=== PATIENT | female | born 1945 | race Caucasian/White ===

== ENCOUNTER → 2017-05-24 | Outpatient (CLI) | payer MEDICARE, OTHER ==
[~2017-05-24] MED LIST: BPR100T PO; CALCIUM PO; CEPH-38 OT; DCS100C PO; GLIP5TAB13 PO; MAALOX; MTF500T PO; MTF500TCR PO; MULT-608 PO; NEOM10DR9 LEFT EAR; OXC20TCR PO; OXYC1TAB87 PO; PGLT30T PO; PRANDIN; REPA0.5T PO; SCP1.5TD TD; SNN187T PO; TEMA30CA PO; TRAZ300T3 PO
--- NOTE | 2017-05-24 12:22 | Diagnostic Imaging Report ---
PROCEDURE: CT abdomen and pelvis without contrast. TECHNIQUE: Multiple contiguous axial images were obtained through the abdomen and pelvis without the use of intravenous contrast. INDICATION: Abdominal pain. Patient has had prior colonic surgery. Comparison is made with prior CT abdomen study dating back to 06/27/2006. The lung bases are clear. No discrete liver mass is identified. The gallbladder is surgically absent. The pancreas and spleen are unremarkable apart from splenic granulomas. No adrenal mass is identified. Kidneys are unremarkable. Aorta is heavily calcified but non-aneurysmal. There appears to be postop changes to the abdomen and probable total colectomy. There is an ostomy in the right lower quadrant. There may be a rectal pouch. Bowel loops do not appear to be appreciably dilated. The previous exam demonstrated markedly distended and stool-filled bowel loops in the pelvis. This is no longer appreciated. There does appear to be some mild circumferential wall thickening involving a loop of bowel that extends from the ostomy in the right lower quadrant caudally into the pelvis. This is indeterminate. No pneumatosis is seen. No free fluid or loculated fluid collection is identified. The bladder is decompressed. IMPRESSION: Extensive postsurgical changes to the abdomen. There is a long segment of circumferential wall thickening involving a bowel loop in the right abdomen, nonspecific. This may be owing to nonspecific enteritis. No bowel obstruction is seen. No free fluid or fluid collection is identified. No free air is seen. Dictated by: Dictated on workstation # [id number]
== END ==
LOC: RAD 10:42
PROVIDERS: ATTEND Nurse Practitioner Family
DX: R10.9 Unspecified abdominal pain (principal); Z90.49 Acquired absence of other specified parts of digestive tract
CPT/HCPCS: 74176

== ENCOUNTER → 2017-07-17 | Outpatient (CLI) | payer MEDICARE, OTHER ==
[~2017-07-17] MED LIST changes: +ATOR20TA66 PO; +CYAN100092 IJ; +INSU300I SQ; +METO-370 PO; +VENL150C98 PO
== END | disposition home or self-care (01) ==
LOC: PREOP 05:54
PROVIDERS: ATTEND Specialist
DX: Z01.818 Encounter for other preprocedural examination (principal)

== ENCOUNTER 2017-07-20 09:57 | Day surgery (SDC) | payer MEDICARE, OTHER ==
[~2017-07-20] VITALS: Ht 172.7 cm; Wt 54.4 kg
[~2017-07-20 09:57] MED LIST changes: -ATOR20TA66 PO; -CYAN100092 IJ; -INSU300I SQ; -METO-370 PO; -VENL150C98 PO
[2017-07-20] MEDS: TETRACAINE 0.5% OPHTH SOLN 4 ML BTL (SINGLE DOSE ONLY) OU PRN ×4 (10:14→10:32)
[2017-07-20] MEDS ORDERED: VANCOMYCIN/BSS (COMPOUNDED) 10 MG/ML SYR OP ONE (10:15)
[2017-07-20] MEDS ORDERED: TIMOLOL MALEATE 0.5% 5 ML (TIMOPTIC) BTL OU PRN (10:15)
[2017-07-20] MEDS ORDERED: LIDOCAINE PF 1% 2 ML AMP IR PRN (10:15)
[2017-07-20] MEDS ORDERED: EPINEPHrine INJECTION 1 MG/ML AMP INJ ONE (10:15)
[2017-07-20] MEDS ORDERED: POVIDONE (BETADINE) OPHTH SOLN 5% 30 ML OP ONE (10:15)
[2017-07-20] MEDS ORDERED: INSU300I SQ (10:20)
[2017-07-20 10:22] VITALS: BP 117/71
[2017-07-20] MEDS ORDERED: CYAN100092 IJ (10:23)
[2017-07-20] MEDS ORDERED: METO-370 PO (10:23)
[2017-07-20] MEDS ORDERED: VENL150C98 PO (10:23)
[2017-07-20] MEDS: CYCLOPENTOLATE 1% (CYCLOGYL) 2 ML DROPS OP SCH ×3 (10:24→10:32)
[2017-07-20] MEDS: PHENYLEPHRINE 10% OPHTH (NEO-SYN) 5 ML BTL OU SCH ×3 (10:24→10:32)
[2017-07-20] MEDS ORDERED: ATOR20TA66 PO (10:27)
--- NOTE | 2017-07-20 10:54 | Ophthalmologist Pre-Op Note ---
Pre-Operative Progress Note H&P Reviewed The H&P was reviewed, patient examined and no changes noted. Date H&P Reviewed: Jul 20, 2017 Time H&P Reviewed: 10:53 Pre-Op Dx Secondary Cataract, Right Eye CHRISTO SIERRA MD Jul 20, 2017 10:53
[2017-07-20] MEDS ORDERED: MIDAZOLAM 2 MG/2 ML (VERSED) VIAL ONE (10:57)
--- NOTE | 2017-07-20 11:24 | Ophthalmology Operative Report ---
Cataract removal/placement IOL PREOPERATIVE DIAGNOSIS: Cataract Right Eye POSTOPERATIVE DIAGNOSIS: Cataract Right Eye PROCEDURE: Cataract removal and placement of posterior chamber implant, right eye SURGEON: Alfie Sierra ANESTHESIA: Topical with sedation COMPLICATIONS: None ESTIMATED BLOOD LOSS: Minimal DESCRIPTION OF PROCEDURE: After proper informed consent was obtained, the patient, a 72 female, was taken to the Operating Room and the right eye was anesthetized with tetracaine. The right eye was then prepped and draped in the usual manner. A wire lid speculum was placed. A paracentesis was made at the left hand position. Preservative free lidocaine was injected into the anterior chamber followed by viscoelastic. A clear corneal incision was made in the temporal position. A capsulorrhexis was preformed and the central nuclear and cortical material were removed. The posterior capsule was polished and Diego 21.5 [id number] IOL was placed into the capsular bag. The residual viscoelastic was aspirated and balanced saline solution was injected into the anterior chamber. 0.1ml of Vancomycin (1mg/0.1ml ) was injected into the anterior chamber. The wound was checked and found to be water tight. The patient tolerated the procedure well without complications. ALFIE SIERRA MD Jul 20, 2017 11:24
[2017-07-20 11:37] VITALS: BP 131/65
--- NOTE | 2017-07-20 12:21 | Anesthesia-General Post-Op ---
MAC Patient Condition Mental Status/LOC: Same as Preop Cardiovascular: Satisfactory Nausea/Vomiting: Absent Respiratory: Satisfactory Pain: Controlled Complications: Absent Post Op Complications Complications None Follow Up Care/Instructions Patient Instructions None needed. Anesthesiology Discharge Order Discharge Order Patient is doing well, no complaints, stable vital signs, no apparent adverse anesthesia problems. No complications reported per nursing. ANGIE JAUREGUI CRNA Jul 20, 2017 12:21
== END 2017-07-20 11:37 | disposition home or self-care (01) ==
LOC: SDC 09:57
PROVIDERS: ATTEND Specialist
DX: E11.36 Type 2 diabetes mellitus with diabetic cataract (principal); I10 Essential (primary) hypertension; I48.91 Unspecified atrial fibrillation; Z79.4 Long term (current) use of insulin; Z79.899 Other long term (current) drug therapy
CPT/HCPCS: 82962

== ENCOUNTER → 2017-07-25 | Outpatient (CLI) | payer MEDICARE, OTHER ==
[~2017-07-25] MED LIST changes: +ATOR20TA66 PO; +CYAN100092 IJ; +INSU300I SQ; +METO-370 PO; +VENL150C98 PO
== END ==
LOC: PREOP 06:21
PROVIDERS: ATTEND Specialist
DX: Z01.818 Encounter for other preprocedural examination (principal)

== ENCOUNTER 2017-08-23 14:04 | Outpatient (RCR) | payer MEDICARE, OTHER ==
[~2017-08-23] VITALS: Ht 167.6 cm; Wt 60.8 kg
[2017-08-23] MEDS ORDERED: NS IV 1000 ML 1,000 ML ONE (14:20)
[2017-08-23] MEDS ORDERED: metroNIDAZOLE 500MG/100ML IVPB 100 ML ONE (14:20)
[2017-08-23 14:30] VITALS: BP 124/69
[2017-08-23] MEDS ORDERED: metroNIDAZOLE 500 MG/100 ML IVPB (PRE-MIX) IV ONE (14:45)
[2017-08-23] MEDS ORDERED: NS IV 1000 ML 1,000 ML IV SCH ×2 (14:45→16:00)
[2017-08-23 18:43] VITALS: BP 124/69
== END 2017-08-24 06:22 | disposition home or self-care (01) ==
LOC: SDC 14:04
PROVIDERS: ATTEND Family Medicine
DX: E86.0 Dehydration (principal); K91.850 Pouchitis
CPT/HCPCS: 96361; 96365

== ENCOUNTER → 2018-04-30 | Outpatient (CLI) | payer MEDICARE, OTHER ==
--- NOTE | 2018-04-30 16:57 | Diagnostic Imaging Report ---
INDICATION: Fall with trauma to the head. Headache. TECHNIQUE: Routine non contrast-enhanced axial images were obtained from the skull base to the vertex. COMPARISON: None. FINDINGS: The ventricles and cortical sulci are diffusely prominent, compatible with age-related volume loss. There are confluent areas of abnormal, low attenuation in the periventricular white matter. This is consistent with small vessel ischemic changes; age-indeterminate. There is no prior study available for comparison. There is no midline shift or mass-effect. No acute intra-axial hemorrhage is seen. There are no abnormal areas of increased or decreased density to suggest acute hemorrhage or edema. No extra-axial masses or collections are present. The bony calvarium is intact. The visualized paranasal sinuses are unremarkable. The mastoid air cells are clear. IMPRESSION: 1. No acute intracranial abnormality. No CT evidence of mass, acute infarct or intracranial hemorrhage. 2. Small vessel ischemic changes in the periventricular and subcortical white matter; likely chronic. Dictated by: Dictated on workstation # [id number]
[2018-04-30 17:19] LABS: BASOPHILS % (AUTO) 0 % (0-10); EOSINOPHILS # (AUTO) 0.1 10^3/uL (0.0-0.3); EOSINOPHILS % (AUTO) 2 % (0-10); HEMATOCRIT 36 % (35-52); HEMOGLOBIN 12.5 G/DL (11.5-16.0); LYMPHOCYTES # (AUTO) 1.3 X 10^3 (1.0-4.0); LYMPHOCYTES % (AUTO) 23 % (12-44); MEAN CORPUSCULAR HEMOGLOBIN 32 PG (25-34); MEAN CORPUSCULAR HGB CONC 35 G/DL (32-36); MEAN CORPUSCULAR VOLUME 94 FL (80-99); MEAN PLATELET VOLUME 13.6 FL (7.4-10.4); MONOCYTES # (AUTO) 0.6 X 10^3 (0.0-1.0); MONOCYTES % (AUTO) 10 % (0-12); NEUTROPHILS # (AUTO) 3.7 X 10^3 (1.8-7.8); NEUTROPHILS % (AUTO) 65 % (42-75); PLATELET COUNT 177 10^3/uL (130-400); WHITE BLOOD COUNT 5.6 10^3/uL (4.3-11.0)
[2018-04-30 17:36] LABS: ALBUMIN 4.3 GM/DL (3.2-4.5); BILIRUBIN,TOTAL 0.3 MG/DL (0.1-1.0); CALCIUM 10.1 MG/DL (8.5-10.1); CREATININE SERUM 2.7 MG/DL (0.60-1.30); POTASSIUM 5.6 MMOL/L (3.6-5.0); TOTAL PROTEIN 7.4 GM/DL (6.4-8.2)
[2018-04-30 17:41] LABS: BILIRUBIN,URINE NEGATIVE (NEGATIVE); CLARITY,URINE SLIGHTLY CLOUDY; COLOR,URINE YELLOW; GLUCOSE, URINE (UA) 4+ (NEGATIVE); KETONES,URINE NEGATIVE (NEGATIVE); LEUKOCYTE ESTERASE ,URINE 2+ (NEGATIVE); NITRITE,URINE NEGATIVE (NEGATIVE); PH,URINE 5 (5-9); PROTEIN,URINE 1+ (NEGATIVE); UROBILINOGEN,URINE NORMAL (NORMAL)
[2018-04-30 17:50] LABS: BACTERIA,URINE TRACE /HPF
== END ==
LOC: RAD 16:36
PROVIDERS: ATTEND Nurse Practitioner Family
DX: S09.90XA Unspecified injury of head, initial encounter (principal); I67.82 Cerebral ischemia; E11.65 Type 2 diabetes mellitus with hyperglycemia; Z91.81 History of falling
CPT/HCPCS: 36415; 70450; 80053; 81000; 83036; 85025; 87088

== ENCOUNTER → 2019-01-01 | Outpatient (CLI) | payer MEDICARE, BC, OTHER ==
[~2019-01-01] VITALS: Ht 171 cm; Wt 58.1 kg
[~2019-01-01] MED LIST changes: +ATEN50TA PO; +IBUP1TAB9 PO; +INSU100I34 SC; +LIRA0.6P3 SC; +LISI-556 PO; +MULT-1067 PO; +NS IV 1000 ML 1,000 ML IV ONE; +TR1C15 TOP
--- NOTE | 2019-01-01 08:15 | NUR ---
LUNGS CTA, HEART RATE SLIGHTLY IRREG. VSS. 0930: LUNGS CTA, HEART RATE SLIGHTLY IRREG. VSS.
[2019-01-01 08:25] VITALS: BP 126/60
[2019-01-01 08:48] LABS: CALCIUM 9.7 MG/DL (8.5-10.1); CREATININE SERUM 3.43 MG/DL (0.60-1.30); POTASSIUM 4.3 MMOL/L (3.6-5.0)
--- NOTE | 2019-01-01 09:35 | NUR ---
36.4, 92, 16, 100%, 152/66. LUNGS CTA. DENIES ANY SHORTNESS OF BREATH.
== END ==
LOC: SDC 08:02
PROVIDERS: ATTEND Family Medicine
DX: E86.0 Dehydration (principal); N17.9 Acute kidney failure, unspecified; N18.3 Chronic kidney disease, stage 3 (moderate)
CPT/HCPCS: 36415; 80048; 96360; 96361

== ENCOUNTER 2019-01-02 16:20 | Inpatient (IN) | payer MEDICARE, BC, OTHER ==
[~2019-01-02] VITALS: Ht 172 cm; Wt 59.2 kg
[~2019-01-02 16:20] MED LIST changes: -ATEN50TA PO; -IBUP1TAB9 PO; -INSU100I34 SC; -LIRA0.6P3 SC; -LISI-556 PO; -MULT-1067 PO; -NS IV 1000 ML 1,000 ML IV ONE; -TR1C15 TOP
[2019-01-02 17:03] LABS: BILIRUBIN,URINE NEGATIVE (NEGATIVE); CLARITY,URINE CLEAR; COLOR,URINE YELLOW; GLUCOSE, URINE (UA) NEGATIVE (NEGATIVE); KETONES,URINE NEGATIVE (NEGATIVE); LEUKOCYTE ESTERASE ,URINE NEGATIVE (NEGATIVE); NITRITE,URINE NEGATIVE (NEGATIVE); PROTEIN,URINE 1+ (NEGATIVE)
--- NOTE | 2019-01-02 17:03 | ED General ---
General Chief Complaint: Lower Extremity Stated Complaint: BLOOD IN URINE/L LEG KNOT Nursing Triage Note: is a diabetic and was sent here by Dr Mendez who would like pt admitted to facility for kidney failure and knot on L leg Nursing Sepsis Screen: No Definite Risk Source of Information: Patient, Spouse Exam Limitations: No Limitations History of Present Illness Date Seen by Provider: Jan 02, 2019 Time Seen by Provider: 17:03 Initial Comments 73-year-old female patient presents with reports of needing to be admitted for kidney failure and a "knot" on her left leg. Patient was seen yesterday by Dr. Mendez and given outpatient IV fluids for renal failure. She reports increased redness, swelling, and pain to the LLE. Patient states she is diabetic and blood sugars have been running "higher than normal" the last few days (upper 100's to 500's). Timing/Duration: 1-2 Days Modifying Factors: worse with Medication (no improvement with fluids.), worse with Other (worse with palpation) Allergies and Home Medications Allergies Coded Allergies: Sulfa (Sulfonamide Antibiotics) (Verified Allergy, Unknown, 06/11/06) Home Medications Atenolol 50 Mg Tablet, 50 MG PO DAILY, (Reported) Doxycycline Hyclate 100 Mg Capsule, 100 MG PO BID Prescribed by: DIEGO MENDEZ on 01/06/19 1234 Hydrocodone Bit/Acetaminophen 1 Tab Tab, 1 TAB PO Q12H PRN for PAIN-MODERATE (5- 7) Prescribed by: DIEGO MENDEZ on 01/06/19 1234 Insulin Glargine,Hum.rec.anlog 100 Unit/1 Ml Insuln.pen, 20 UNITS SC HS, (Reported) Liraglutide 0.6 Mg/0.1 Ml Pen.injctr, 0.6 MG SC DAILY LAST FILLED 9ML 07-09-18 Prescribed by: DIEGO MENDEZ on 01/06/19 1234 Lisinopril 5 Mg Tablet, 5 MG PO DAILY, (Reported) Multivitamin/Iron/Folic Acid 1 Each Tablet, 1 TAB PO DAILY, (Reported) Patient Home Medication List Home Medication List Reviewed: Yes Review of Systems Review of Systems Constitutional: chills; No fever; malaise EENTM: no symptoms reported Respiratory: No cough, No phlegm, No short of breath, No wheezing Cardiovascular: No chest pain, No palpitations, No syncope Gastrointestinal: No abdominal pain, No constipation, No diarrhea; loss of appetite; No nausea, No vomiting Genitourinary: No decreased output, No dysuria, No frequency, No hematuria Musculoskeletal: No back pain; other (left lower extremity pain) Skin: change in color (redness to the left distal lower extremity), lumps (left anterior distal leg) Psychiatric/Neurological: Denies Numbness, Denies Paresthesia, Denies Tingling, Denies Weakness All Other Systems Reviewed Negative Unless Noted: Yes (Negative excepted noted.) Past Zwkmpqn-Jhbflt-Clkvac Hx Past Med/Social Hx: Reviewed Nursing Past Med/Soc Hx Patient Social History Alcohol Use: Denies Use Recreational Drug Use: No 2nd Hand Smoke Exposure: No Recent Foreign Travel: No Contact w/Someone Who Travel: No Recent Infectious Disease Expo: No Recent Hopitalizations: Yes Past Medical History Surgeries: Yes (COLECTOMY,APPY,POUCH FROM SM.INTESTINE,ADHESIONS,D&C,STOMA CLOSURE) Respiratory: No Cardiac: No Neurological: No Reproductive Disorders: No Gastrointestinal: Yes (06/11/06 ON 4TH FOR DEHYDRATION & ELEVATED LIVER ENZYMES) Musculoskeletal: No Blood Disorders: No Family Medical History Reviewed Nursing Family Hx No Pertinent Family Hx Physical Exam Vital Signs Vital Signs - First Documented 01/02/19 16:42 Temp 36.9 Pulse 65 Resp 18 B/P (MAP) 138/77 (97) Capillary Refill : Less Than 3 Seconds Height, Weight, BMI Height: 5'6.00" Weight: 134lbs. 0.5oz. [id number]; 19.00 BMI Method:Stated General Appearance: No Apparent Distress, WD/WN HEENT: PERRL/EOMI, Pharynx Normal Neck: Normal Inspection, Supple Respiratory: Lungs Clear, Normal Breath Sounds, No Accessory Muscle Use, No Respiratory Distress Cardiovascular: Regular Rate, Rhythm, No Edema, No Murmur, Normal Peripheral Pulses Gastrointestinal: Normal Bowel Sounds, Non Tender, Soft; No Distended Back: Normal Inspection Extremity: Normal Capillary Refill, Normal Range of Motion, Other (erythema, warmth, and tenderness with 2 fluctuant areas of the left anterior distal leg. Purulent drainage noted from the lateral wound. Culture obtained at the time of exam.) Neurologic/Psychiatric: Alert, Oriented x3, No Motor/Sensory Deficits, Normal Mood/Affect Skin: Normal Color, Warm/Dry, Other (erythema, warmth, and tenderness with 2 fluctuant areas of the left anterior distal leg. Purulent drainage noted from the lateral wound. Culture obtained at the time of exam.) Procedures/Interventions I&D #1: Site: left distal anterolateral leg Blade Size: 11 I & D Procedure: betadine prep, sterile drapes applied, sterile dressing applied, Wound Packing Packing/Drain: Idoform 1/4 Progress fat necrosis in the bed of the wound noted. Blood loss minimal. Patient tolerated the procedure well. I&D #2: Site: left anterior distal leg Blade Size: 11 I & D Procedure: betadine prep, sterile drapes applied, sterile dressing applied, Wound Packing Packing/Drain: Idoform 1/4 Progress Fat necrosis noted in the bed of the wound. Blood loss minimal. Patient tolerated the procedure well. Progress/Results/Core Measures Suspected Sepsis Recent Fever Within 48 Hours: Yes Infection Criteria Present: Suspected New Infection New/Unexplained Altered Menta: No Sepsis Screen: No Definite Risk SIRS Temperature: Pulse: 65 Respiratory Rate: 18 Blood Pressure 138 /77 Mean: 97 Results/Orders Lab Results Laboratory Tests Test 01/02/19 16:50 Range/Units My Orders Orders - LATA JEONG Ed Iv/Invasive Line Start (01/02/19 16:58) Cbc With Automated Diff (01/02/19 16:58) Comprehensive Metabolic Panel (01/02/19 16:58) Ua Culture If Indicated (01/02/19 16:58) Vital Signs/I&O 01/02/19 16:42 Temp 36.9 Pulse 65 Resp 18 B/P (MAP) 138/77 (97) Capillary Refill : Less Than 3 Seconds Blood Pressure Mean: 97 POS Departure Communication (Admissions) Time/Spoke to Admitting Phy: 19:55 Dr. Diego Mendez graciously accepts patient for IV antibiotics, IV fluids, and pain control. Patient seen and evaluated. Initial labs obtained. Patient was given 50 g of fentanyl with improvement in pain. Incision and drainage of the 2 left distal extremity abscesses performed. Patient was given doxycycline 100 mg IV 1 dose. Laboratory findings and plan for admission discussed with the patient and spouse. Both verbalize understanding and agree with the treatment plan. Plan for admission discussed with Dr. Salazar, he agrees with the plan of care. Impression Primary Impression: Cellulitis and abscess of left lower extremity Additional Impressions: Spider bite Qualified Codes: T63.301A - Toxic effect of unspecified spider venom, accidental (unintentional), initial encounter Acute on chronic renal failure Qualified Codes: N17.9 - Acute kidney failure, unspecified; N18.3 - Chronic kidney disease, stage 3 (moderate) Diabetes mellitus type 2 in nonobese Disposition: ADMITTED INPATIENT Condition: Stable Admissions Decision to Admit Reason: Admit from ER (General) Decision to Admit/Date: Jan 02, 2019 Time/Decision to Admit Time: 19:55 Departure-Patient Inst. Referrals: DIEGO MENDEZ MD (PCP/Family) Primary Care Physician Scripts Doxycycline Hyclate (Doxycycline Hyclate) 100 Mg Capsule 100 MG PO BID for 10 Days, #20 CAP Prov: DIEGO MENDEZ MD 01/06/19 Hydrocodone Bit/Acetaminophen (Hydrocodone/Acetaminophen 5/325mg Tablet) 1 Tab Tab 1 TAB PO Q12H PRN for PAIN-MODERATE (5-7), #12 TAB Prov: DIEGO MENDEZ MD 01/06/19 Liraglutide (Victoza 3-Raj) 0.6 Mg/0.1 Ml Pen.injctr 0.6 MG SC DAILY, #3 EA LAST FILLED 9ML 07-09-18 Prov: DIEGO MENDEZ MD 01/06/19 Images Extremities-Lower 1 - Cellulitis, Tenderness LATA JEONG Jan 02, 2019 17:03 POS
[2019-01-02 17:21] LABS: BACTERIA,URINE NEGATIVE /HPF; GRANULAR CASTS,URINE RARE /LPF; SQUAMOUS EPITHELIAL CELL,UR 0-2 /HPF
[2019-01-02] MEDS ORDERED: NS IV 1000 ML 1,000 ML IV ONE (17:27)
[2019-01-02] MEDS ORDERED: fentaNYL INJECTION 100 MCG/2 ML AMP IVP STA ×2 (17:27→18:56)
[2019-01-02] MEDS ORDERED: LIDOCAINE/EPI 1%-1:100,000 (XYLOCAINE) 20ML INJ ONE (17:30)
[2019-01-02] MEDS ORDERED: LIDOCAINE/EPI 2% 1:100,00 (XYLOCAINE) 20 ML VIAL INJ ONE (17:45)
[2019-01-02 18:06] LABS: BASOPHILS % (AUTO) 0 % (0-10); EOSINOPHILS # (AUTO) 0.2 10^3/uL (0.0-0.3); EOSINOPHILS % (AUTO) 1 % (0-10); HEMATOCRIT 35 % (35-52); HEMOGLOBIN 11.3 G/DL (11.5-16.0); LYMPHOCYTES # (AUTO) 1.8 X 10^3 (1.0-4.0); LYMPHOCYTES % (AUTO) 17 % (12-44); MEAN CORPUSCULAR HEMOGLOBIN 31 PG (25-34); MEAN CORPUSCULAR HGB CONC 32 G/DL (32-36); MEAN CORPUSCULAR VOLUME 96 FL (80-99); MONOCYTES # (AUTO) 0.8 X 10^3 (0.0-1.0); MONOCYTES % (AUTO) 8 % (0-12); NEUTROPHILS # (AUTO) 7.8 X 10^3 (1.8-7.8); NEUTROPHILS % (AUTO) 74 % (42-75); PLATELET COUNT 269 10^3/uL (130-400); RED CELL DISTRIBUTION WIDTH 14.4 % (10.0-14.5); WHITE BLOOD COUNT 10.6 10^3/uL (4.3-11.0)
[2019-01-02 18:51] LABS: ALBUMIN 3.6 GM/DL (3.2-4.5); BILIRUBIN,TOTAL 0.2 MG/DL (0.1-1.0); CALCIUM 8.7 MG/DL (8.5-10.1); CREATININE SERUM 2.41 MG/DL (0.60-1.30); POTASSIUM 4.1 MMOL/L (3.6-5.0); TOTAL PROTEIN 6.3 GM/DL (6.4-8.2)
[2019-01-02] MEDS ORDERED: DOXYCYCLINE INJECTION 100 MG in NS (IVPB) 100 ML IV ONE (19:15)
[2019-01-02] MEDS ORDERED: HYDROcodone/APAP 5 MG/325 MG (LORTAB) TAB ONE (20:56)
--- NOTE | 2019-01-02 21:10 | NUR ---
DEBORAH CRUZ admitted to room 409-1, with an admitting diagnosis of EXTENSIVE CELLULITIS/ABSESS LLE, SPIDER BITE, ACCUTE ONSET CHRONIC RENAL FAILURE, DM, on 01/02/19 from ED via STRETCHER, accompanied by SPOUSE, ED STAFF.DEBORAH CURZ introduced to surroundings, call light, bed controls, phone, TV, temperature control, lights, meal times, smoking policy, visitor policy, side rail policy, bathrooms and showers. Patient Rights given to patient in the handbook.DEBORAH CRUZ verbalizes understanding that [facility] is not responsible for the loss or damage to any personal effects or valuables that are kept in the patients posession during their hospitalization.
[2019-01-02 21:12] VITALS: BP 144/67
[2019-01-02] MEDS ORDERED: PIPERACILLIN/TAZO 4.5 GM/NS 100 ML IV ONE ×2 (21:45)
[2019-01-02] MEDS: HYDROcodone/APAP 5 MG/325 MG (LORTAB) TAB PO PRN (22:10)
[2019-01-02] MEDS ORDERED: TAZOBACTAM IV SCH (22:15)
[2019-01-02] MEDS ORDERED: NS IV SCH (22:15)
[2019-01-02] MEDS ORDERED: PIPERACILLIN IV SCH (22:15)
[2019-01-02] MEDS ORDERED: PIPERACILLIN/TAZO 4.5 GM VIAL (ZOSYN) IV ONE (22:16)
[2019-01-02] MEDS ORDERED: NS (IVPB) 100 ML ONE (22:17)
[2019-01-02] MEDS: TAZOBACTAM IV SCH (22:33)
[2019-01-02] MEDS: LACTATED RINGERS 1,000 ML IV SCH (22:33)
[2019-01-02] MEDS: NS IV SCH (22:33)
[2019-01-02] MEDS: PIPERACILLIN IV SCH (22:33)
[2019-01-03] MEDS: fentaNYL INJECTION 100 MCG/2 ML AMP IV PRN ×4 (02:22→21:36)
[2019-01-03 03:35] VITALS: BP 127/72
[2019-01-03] MEDS ORDERED: PIPERACILLIN/TAZO 4.5 GM/NS 100 ML IV SCH ×2 (03:45)
[2019-01-03] MEDS: HYDROcodone/APAP 5 MG/325 MG (LORTAB) TAB PO PRN ×5 (03:55→23:32)
[2019-01-03 05:28] LABS: BASOPHILS % (AUTO) 0 % (0-10); EOSINOPHILS # (AUTO) 0.1 10^3/uL (0.0-0.3); EOSINOPHILS % (AUTO) 2 % (0-10); HEMATOCRIT 30 % (35-52); HEMOGLOBIN 9.7 G/DL (11.5-16.0); LYMPHOCYTES # (AUTO) 1.4 X 10^3 (1.0-4.0); LYMPHOCYTES % (AUTO) 26 % (12-44); MEAN CORPUSCULAR HEMOGLOBIN 31 PG (25-34); MEAN CORPUSCULAR HGB CONC 33 G/DL (32-36); MEAN CORPUSCULAR VOLUME 95 FL (80-99); MONOCYTES # (AUTO) 0.5 X 10^3 (0.0-1.0); MONOCYTES % (AUTO) 9 % (0-12); NEUTROPHILS # (AUTO) 3.5 X 10^3 (1.8-7.8); NEUTROPHILS % (AUTO) 63 % (42-75); PLATELET COUNT 182 10^3/uL (130-400); RED CELL DISTRIBUTION WIDTH 13.2 % (10.0-14.5); WHITE BLOOD COUNT 5.5 10^3/uL (4.3-11.0)
[2019-01-03 05:57] LABS: BILIRUBIN,TOTAL 0.2 MG/DL (0.1-1.0); CREATININE SERUM 2.02 MG/DL (0.60-1.30); POTASSIUM 3.6 MMOL/L (3.6-5.0); TOTAL PROTEIN 5.3 GM/DL (6.4-8.2)
--- NOTE | 2019-01-03 06:27 | History & Physical ---
History of Present Illness History of Present Illness Reason for visit/HPI 73 yo female admitted yesterday evening for a concerning left leg wound that patient reports is becoming increasingly painful and starting to ooze. The pain is severe enough she does not want to walk on it. (of note she has been walking more the last few days with errands and doctor appointments). Furthermore patient's Cr went from 1.9 a couple months ago to 2.4 and then 3.2 in the past few days. She did receive 2L NS in outpatient setting on 01/01/19 in effort to keep her out of the hospital. I ordered a repeat BMP to check her kidney function and she reported she was too weak and in pain to go to the lab. Thus, she was instructed to go to the ER. Her blood sugars have also been out of control ranging from 100s to 500s per patient and her . I have concern that she does not adhere to her insulin regimen. While in the ER, both left leg nodules were lanced with pus being expressed as well as fatty tissue layer damaged/necrotic. Creatinine has improved with IVF. She has been admitted with IV antibiotic coverage and a wound culture is pending. No known fevers, WBC are normal. Will consult wound or surgery. Date of Admission Jan 02, 2019 at 20:05 Date Seen by a Provider: Jan 03, 2019 Time Seen by a Provider: 09:30 I consulted on this patient on 01/03/19 06:19 Attending Physician Diego Mendez MD Admitting Physician Diego Mendez MD Consult wound care- Dr. Robert Allergies and Home Medications Allergies Coded Allergies: Sulfa (Sulfonamide Antibiotics) (Verified Allergy, Unknown, 06/11/06) Home Medications Atenolol 50 Mg Tablet, 50 MG PO DAILY, (Reported) Ibuprofen/Diphenhydramine Cit 1 Each Tablet, 2 TAB PO HS, (Reported) Insulin Glargine,Hum.rec.anlog 100 Unit/1 Ml Insuln.pen, 20 UNITS SC HS, (Reported) Liraglutide 0.6 Mg/0.1 Ml Pen.injctr, 0.6 MG SC TIDAC, (Reported) LAST FILLED 9ML 07-09-18 Lisinopril 5 Mg Tablet, 5 MG PO DAILY, (Reported) Multivitamin/Iron/Folic Acid 1 Each Tablet, 1 TAB PO DAILY, (Reported) Triamcinolone Acet 15 Gm Cr, TOP BID, (Reported) APPLY TO LEFT LEG - 10 DAY SUPPLY FILLED 12-26-18 Patient Home Medication List Home Medication List Reviewed: Yes Past Xvcguif-Mfaixr-Eezssd Hx Patient Social History Alcohol Use: Denies Use Recreational Drug Use: No 2nd Hand Smoke Exposure: No Physical Abuse Screen: No Sexual Abuse: No Recent Foreign Travel: No Contact w/other who traveled: No Recent Hopitalizations: Yes Recent Infectious Disease Expo: No Seasonal Allergies Seasonal Allergies: No Surgeries Yes (COLECTOMY,APPY,POUCH FROM SM.INTESTINE,ADHESIONS,D&C,STOMA CLOSURE) Respiratory No Cardiovascular No Neurological No Reproductive System Hx Reproductive Disorders: No Gastrointestinal Yes (06/11/06 ON 4TH FOR DEHYDRATION & ELEVATED LIVER ENZYMES) Musculoskeletal No Blood Transfusions History of Blood Disorders: No Review of Systems Review of Systems General: No Chills, No Night Sweats HEENT: No Head Aches, No Visual Changes Pulmonary: No Dyspnea, No Cough Cardiovascular: No: Chest Pain, Palpitations, Orthopnea Gastrointestinal: No: Nausea, Vomiting, Abdominal Pain Genitourinary: No Dysuria Musculoskeletal: leg pain; No: neck pain Neurological: Weakness Physical Exam Vital Signs Vital Signs - First Documented 01/02/19 01/02/19 16:42 21:05 Temp 36.9 Pulse 65 Resp 18 B/P (MAP) 138/77 (97) Pulse Ox 98 O2 Delivery Room Air Capillary Refill : Less Than 3 Seconds Height, Weight, BMI Height: 5'6.00" Weight: 134lbs. 0.5oz. 60.182924dv; 19.60 BMI Method:Stated General Appearance: Mild Distress (pain) HEENT: PERRL/EOMI Neck: Non Tender, Supple Respiratory: Chest Non Tender, Lungs Clear, Normal Breath Sounds Cardiovascular: Regular Rate, Rhythm, No Edema Gastrointestinal: Non Tender, Soft Rectal: Deferred Back: No CVA Tenderness Extremity: Other (abscess x2 left lower leg- lateral calf) Neurologic/Psychiatric: Alert, Oriented x3 (flat affect) Assessment/Plan Assessment/Plan Admission Dx left leg abscess acute on chronic kidney failure uncontrolled diabetes mellitus II Admission Status: Observation Reason for Inpatient Admission: monitoring as observation for now as she could decompensate quickly. Assessment and Plan 01/02/19- admitted observation for iv antibiotics and wound culture results- I/D should help with wound healing. Issue will be she needs good blood sugar control to support wound healing. IVF to continue to get her back to baseline cr. Kidney function is improving. Hold/stop victoza for now until she has follow up with her endocrinology. DVT ppx heparin q8hrs Dispo: monitoring for acute changes. await culture results- june d/c to home on po antibiotics if culture is back with sensitivities- 01/04/19 rechecking BMP in AM to make sure cr continues to trend down. Problems: (1) Abscess of left lower extremity excluding foot (2) Diabetes mellitus type II, uncontrolled Assessment & Plan: Hga1c 12.3 12/31/18 (3) Acute on chronic renal failure Qualifiers: (4) HTN (hypertension) (5) History of ulcerative colitis Clinical Quality Measures DVT/VTE Risk/Contraindication: Risk Factor Score Per Nursin RFS Level Per Nursing on Admit: 2=Moderate DIEGO MENDEZ MD Jan 03, 2019 06:27 POS
[2019-01-03] MEDS ORDERED: NS (IVPB) 100 ML ONE (06:54)
[2019-01-03] MEDS ORDERED: PIPERACILLIN/TAZO 4.5 GM VIAL (ZOSYN) IV ONE (06:54)
[2019-01-03] MEDS: PIPERACILLIN IV SCH (07:12)
[2019-01-03] MEDS: TAZOBACTAM IV SCH (07:12)
[2019-01-03] MEDS: NS IV SCH (07:12)
--- NOTE | 2019-01-03 07:55 | NUR ---
CORRECT ZOSYN ORDER TO 4.5G IV (INFUSED OVER 4 HOURS) Q12 HOURS, DUE TO SCR 2.02 AND ESTIMATED CRCL OF 20-23. WILL MONITOR SCR LEVEL AND ADJUST DOSING IF IMPROVES. Addendum: 01/03/19 at 0940 by MANI SAPP [facility] Corrected Zosyn order
[2019-01-03 08:00] VITALS: BP 155/71
[2019-01-03] MEDS: LACTATED RINGERS 1,000 ML IV SCH ×2 (08:51→16:40)
[2019-01-03] MEDS: DOXYCYCLINE INJECTION 100 MG in NS (IVPB) 100 ML IV SCH ×2 (10:12→20:34)
[2019-01-03] MEDS ORDERED: INSU100I34 SC (10:48)
[2019-01-03] MEDS ORDERED: ATEN50TA PO (10:48)
[2019-01-03] MEDS ORDERED: IBUP1TAB9 PO (10:48)
[2019-01-03] MEDS ORDERED: LIRA0.6P3 SC (10:48)
[2019-01-03] MEDS ORDERED: LISI-556 PO (10:48)
[2019-01-03] MEDS ORDERED: MULT-1067 PO (10:48)
[2019-01-03] MEDS ORDERED: TR1C15 TOP (11:23)
[2019-01-03] MEDS: inSUlin ASPART (NovoLOG) 1 UNIT/0.01 ML (CHARGE PER UNIT) SC SCH ×3 (11:37→20:26)
[2019-01-03 12:00] VITALS: BP 149/66
[2019-01-03] MEDS: PIPERACILLIN/TAZO 4.5 GM/NS 100 ML IV SCH ×4 (12:06→22:34)
--- NOTE | 2019-01-03 13:02 | NUR ---
SPOKE WITH THE PATIENT ABOUT HER MEDICATIONS. SHE LISTED WHAT SHE IS TAKING. SHE STATES SHE TAKES IBU 200MG 2 TABS AT HS AND A CENTRUM TABLET DAILY OTC. SHE RECENTLY FILLED TRIAMCINOLONE THAT I ADDED TO THE MED REC BUT SHE HAS FINISHED THE DEXAMETHASONE THAT WAS RECENTLY FILLED. SHE FILLED BASAGLAR RECENTLY WRITTEN 46 UNITS DAILY HOWEVER SHE REPORTS SHE USES 20 UNITS AT HS. [facility] LAST FILLED VICTOZA 9ML 07-09-18 WITH DIRECTIONS TO TAKE 0.6MG X 3 DAYS THEN 1.2MG DAILY THEREAFTER. WHEN THE PATIENT REPORTED THIS MED TO ME SHE STATES SHE USES 0.6MG WITH EACH MEAL TID. I EXPLAINED NORMALLY IT IS GIVEN ONCE DAILY BUT TO DISCUSS WITH HER DR. I CALLED AND SPOKE WITH [facility] OFFICE IN [place] WHO REPORT THEY LAST AUTHORIZED REFILLS ON THE VICTOZA IN JUNE FOR 1.2MG DAILY. THEY HAVE NOT GIVEN SAMPLES OR SENT IT TO ANOTHER PHARMACY THAT THEY HAVE RECORD OF. I NOTED THE PAST DUE FILL DATE ON THE MED REC. SHE ALSO STATES SHE TAKES LISINOPRIL 5MG DAILY AND ATENOLOL 50MG DAILY. [facility] NEITHER ONE HAS EVER DISPENSED THIS MEDICATION THAT THEY HAVE ON FILE. WHEN I ASKED HER ABOUT IT SHE STATES SHE IS CERTAIN THAT IS THE DOSE AND HER SISTER GETS THEM AT A PHARMACY IN [place] FOR HER SOMETIMES. SHE IS UNABLE TO TELL ME THE NAME OF THE PHARMACY AND STATES HER SISTER IS OUT OF TOWN ON A [place] SO SHE IS NOT AVAILABLE TO REACH BY CELL PHONE. I CALLED THE PATIENTS INSURANCE COMPANY, [employer], AND THEY STATE THE ONLY CLAIMS SHE HAS HAD THIS YEAR WERE AT [facility] AND [facility]. THEY DO NOT SEE LISINOPRIL OR ATENOLOL ON HER PROFILE. I PUT THEM ON THE MED REC THE PATIENT REPORTED BUT HAVE NOT REVIEWED THEM. I LEFT A MESSAGE WITH DR. MENDEZ'S OFFICE FOR CLARIFICATION AND WILL UPDATE WHEN THEY RETURN MY CALL.
--- NOTE | 2019-01-03 13:20 | NUR ---
"RD ASSESSMENT PMHx: DM; wound (left calf) PT INTERACTION: Pt was awake and pleasant during nutrition assessment. Pt states current appetite is okay, but had been poor prior to admit. Pt states following a diabetic diet at home, and currently has no issues with chewing/swallowing food. Pt states no recent issues with n/v at this time. Pt states she has a pouch from small intestine and the output is okay. Pt staes no major weight changes recently, and that her weight fluctuates within 5#. Note unable to determine recent wt hx, per chart review. Pt states current DM management is pretty good, and that her average glucose reading is around 130. Note last HbA1c of 12.3 on 12/31/18, per chart review. Note pt has wound present on left calf, per chart review. ABNORMAL NUTRITION-RELATED LAB VALUES: Cl 119 (H); BUN 33 (H); cr 2.02 (H); glu 187 (H); Pro 5.3 (L); alb 3.0 (L) Est. kcal needs: [id number] kcal | 25-30 kcal/kg Est. Pro needs: 70-81 g Pro | 1.2-1.4 g Pro/kg PES STATEMENT: Inadequate oral intake (NI-2.1) related to loss of appetite as evidenced by pt interview Inadequate protein intake (NI-5.6.1) related to increased protein needs as evidenced by wounds (left calf) INTERVENTION: Continue with current diet order of CHO 60g/m 1snack diet. Add Ensure HP to meals TID. Provides 160 kcal and 16 g Pro per serving for perceived benefit to wound healing. Will continue to follow and reassess as pt needs and status change. MONITOR/EVALUATE: PO Intake; Plan of Care; Hydration Status; Weight Status; Lab Values Margarita Miller, MS, RD, LD"
--- NOTE | 2019-01-03 14:58 | Wound Care Assessment ---
Wound Care Assessment Date Seen by Provider: Jan 03, 2019 Time Seen by Provider: 14:40 Chief Complaint L calf ulcer. HPI The patient is a 73 year old female with L calf ulcers x 2 s/p I/D of cutaneous abscess in ER. Personal history of ulcerative colitis. Inflammation dramatically improved with drainage and antibiotics. This finding argues for an infectious etiology as opposed to an autoimmune etiology. Has follow-up [facility] in 4 days. continue Iodoform packing daily. Past Medical History: Admits Diabetes Type II; Denies Heart Disease, Denies Lupas (History of ulcerative colitis.) Recreational Drug Use: No Alcohol Use: Denies Use Review of Systems Pulmonary: No Dyspnea Cardiovascular: No: Chest Pain Gastrointestinal: No: Abdominal Pain Exam Vital Signs Date Time Temp Pulse Resp B/P (MAP) Pulse Ox O2 Delivery O2 Flow Rate FiO2 01/03/19 08:00 98 Room Air 01/03/19 03:35 36.4 68 20 127/72 (90) Capillary Refill : Less Than 3 Seconds General Appearance: no apparent distress Cardiovascular: regular rate, rhythm Respiratory: normal breath sounds, no respiratory distress Extremities: other (L calf cluster of two ulcers, 1.0 x 0.5 x 0.8 cm, base 100% slough, mod. s.s. drainage, for largest.) Results Laboratory Tests 01/02/19 16:50: Urine Color YELLOW, Urine Clarity CLEAR, Urine pH 6.0, Urine Specific [place] >=1.030, Urine Protein 1+H, Urine Glucose (UA) NEGATIVE, Urine Ketones NEGATIVE, Urine Nitrite NEGATIVE, Urine Bilirubin NEGATIVE, Urine Urobilinogen 0.2, Urine Leukocyte Esterase NEGATIVE, Urine RBC (Auto) NEGATIVE, Urine RBC NONE, Urine WBC NONE, Urine Squamous Epithelial Cells 0-2, Urine Crystals NONE, Urine Bacteria NEGATIVE, Urine Casts PRESENT, Urine Granular Casts RARE, Urine Mucus NEGATIVE, Urine Culture Indicated NO 01/02/19 17:30: White Blood Count 10.6, Red Blood Count 3.63L, Hemoglobin 11.3L, Hematocrit 35, Mean Corpuscular Volume 96, Mean Corpuscular Hemoglobin 31, Mean Corpuscular Hemoglobin Concent 32, Red Cell Distribution Width 14.4, Platelet Count 269, Mean Platelet Volume , Neutrophils (%) (Auto) 74, Lymphocytes (%) (Auto) 17, Monocytes (%) (Auto) 8, Eosinophils (%) (Auto) 1, Basophils (%) (Auto) 0, Ne utrophils # (Auto) 7.8, Lymphocytes # (Auto) 1.8, Monocytes # (Auto) 0.8, Eosinophils # (Auto) 0.2, Basophils # (Auto) 0.0 01/02/19 18:19: Sodium Level 144, Potassium Level 4.1, Chloride Level 119H, Carbon Dioxide Level 16L, Anion Gap 9, Blood Urea Nitrogen 41H, Creatinine 2.41H, Estimat Glomerular Filtration Rate 20, BUN/Creatinine Ratio 17, Glucose Level 86, Calcium Level 8.7, Corrected Calcium 9.0, Total Bilirubin 0.2, Aspartate Amino Transf (AST/SGOT) 24, Alanine Aminotransferase (ALT/SGPT) 20, Alkaline Phosphatase 61, Total Protein 6.3L, Albumin 3.6 01/03/19 05:12: White Blood Count 5.5, Red Blood Count 3.12L, Hemoglobin 9.7L, Hematocrit 30L, Mean Corpuscular Volume 95, Mean Corpuscular Hemoglobin 31, Mean Corpuscular Hemoglobin Concent 33, Red Cell Distribution Width 13.2, Platelet Count 182, Mean Platelet Volume 12.0H, Neutrophils (%) (Auto) 63, Lymphocytes (%) (Auto) 26, Monocytes (%) (Auto) 9, Eosinophils (%) (Auto) 2, Basophils (%) (Auto) 0, Neutrophils # (Auto) 3.5, Lymphocytes # (Auto) 1.4, Monocytes # (Auto) 0.5, Eosinophils # (Auto) 0.1, Basophils # (Auto) 0.0, Sodium Level 142, Potassium Level 3.6, Chloride Level 119H, Carbon Dioxide Level 14L, Anion Gap 9, Blood Urea Nitrogen 33H, Creatinine 2.02H, Estimat Glomerular Filtration Rate 24, BUN/Creatinine Ratio 16, Glucose Level 177H, Calcium Level 8.0L, Corrected Calcium 8.8, Total Bilirubin 0.2, Aspartate Amino Transf (AST/SGOT) 17, Alanine Aminotransferase (ALT/SGPT) 14, Alkaline Phosphatase 54, Total Protein 5.3L, Albumin 3.0L Microbiology 01/02/19 Gram Stain, Resulted Pending 01/02/19 Wound Culture - Preliminary, Resulted Microbiology 01/02/19 Gram Stain, Resulted Pending 01/02/19 Wound Culture - Preliminary, Resulted Assessment/Plan/Dx 1. L calf ulcers x 2 , full thickness, due to cutaneous abscess, drained. 2. Diabetes with ulcer. 3. History of ulcerative colitis, s/p total abdominal colectomy. Plan: Continue Iodoform packing daily, f/u in [facility]. Agree with broad spectrum antibiotic coverage until cultures available. RAUL BECK MD Jan 03, 2019 14:57 POS
[2019-01-03] MEDS ORDERED: FLU QUADRIvalent (5+ YOA) 2019-2020 (AFLURIA) 0.5 ML IM ONE (15:00)
[2019-01-03 16:16] VITALS: BP 173/70
[2019-01-03 20:00] VITALS: BP 153/74
[2019-01-03 20:45] VITALS: BP 153/74
[2019-01-03] MEDS: ONDANSETRON 4 MG/2 ML (SDV) Z0FRAN IV PRN (22:34)
[2019-01-04] VITALS: BP 165/72
[2019-01-04] MEDS: LACTATED RINGERS 1,000 ML IV SCH ×2 (02:05→07:59)
[2019-01-04] MEDS: HYDROcodone/APAP 5 MG/325 MG (LORTAB) TAB PO PRN ×4 (02:36→22:43)
[2019-01-04 04:41] LABS: BASOPHILS % (AUTO) 0 % (0-10); EOSINOPHILS # (AUTO) 0.1 10^3/uL (0.0-0.3); EOSINOPHILS % (AUTO) 2 % (0-10); HEMATOCRIT 34 % (35-52); HEMOGLOBIN 10.8 G/DL (11.5-16.0); LYMPHOCYTES # (AUTO) 1.2 X 10^3 (1.0-4.0); LYMPHOCYTES % (AUTO) 23 % (12-44); MEAN CORPUSCULAR HEMOGLOBIN 31 PG (25-34); MEAN CORPUSCULAR HGB CONC 32 G/DL (32-36); MEAN CORPUSCULAR VOLUME 97 FL (80-99); MEAN PLATELET VOLUME 13.1 FL (7.4-10.4); MONOCYTES # (AUTO) 0.5 X 10^3 (0.0-1.0); MONOCYTES % (AUTO) 9 % (0-12); NEUTROPHILS # (AUTO) 3.5 X 10^3 (1.8-7.8); NEUTROPHILS % (AUTO) 65 % (42-75); PLATELET COUNT 192 10^3/uL (130-400); RED CELL DISTRIBUTION WIDTH 13.1 % (10.0-14.5); WHITE BLOOD COUNT 5.4 10^3/uL (4.3-11.0)
[2019-01-04 04:52] LABS: CALCIUM 8.8 MG/DL (8.5-10.1); CREATININE SERUM 1.82 MG/DL (0.60-1.30); POTASSIUM 3.6 MMOL/L (3.6-5.0)
[2019-01-04] MEDS: inSUlin ASPART (NovoLOG) 1 UNIT/0.01 ML (CHARGE PER UNIT) SC SCH ×4 (05:15→20:49)
[2019-01-04] MEDS: ONDANSETRON 4 MG/2 ML (SDV) Z0FRAN IV PRN ×3 (07:59→20:48)
[2019-01-04 08:00] VITALS: BP 149/65
[2019-01-04] MEDS: fentaNYL INJECTION 100 MCG/2 ML AMP IV PRN ×3 (08:01→17:04)
[2019-01-04] MEDS: DOXYCYCLINE INJECTION 100 MG in NS (IVPB) 100 ML IV SCH ×2 (09:01→20:48)
[2019-01-04] MEDS: ATENOLOL 50 MG (TENORMIN) TAB PO SCH (09:01)
[2019-01-04] MEDS: PIPERACILLIN/TAZO 4.5 GM/NS 100 ML IV SCH ×4 (11:40→21:52)
--- NOTE | 2019-01-04 12:45 | Progress Note - Hospitalist ---
Subjective HPI/CC On Admission Date Seen by Provider: Jan 04, 2019 Time Seen by Provider: 12:40 Subjective/Events-last exam Pt reports feeling better. Redness improved. Swelling improving. No new complaints. Objective Exam Vital Signs Vital Signs Date Time Temp Pulse Resp B/P (MAP) Pulse Ox O2 Delivery O2 Flow Rate FiO2 01/04/19 08:00 Room Air 01/04/19 08:00 36.7 59 18 149/65 (93) 96 Capillary Refill : Less Than 3 Seconds General Appearance: No Apparent Distress, WD/WN Respiratory: No Accessory Muscle Use, No Respiratory Distress Extremity: Other (left lower extremity edema, erythema within dermarcation) Neurologic/Psychiatric: Alert, Oriented x3 Results/Procedures Lab Laboratory Tests 01/04/19 04:06 Patient resulted labs reviewed. Assessment/Plan Assessment and Plan Assess & Plan/Chief Complaint left leg abscess- s/p I&D in the ER, culture growing stap aureus- awaiting sensitivities acute on chronic kidney failure- improving, appears to be near baseline uncontrolled diabetes mellitus II- a1c 12.3 this month, continue insulin; likely due to noncompliance because BS well controlled on current regimen HTN- continue atenolol, Lisinopril held for SANTO Anemia of CKD- stable, trend DVT ppx- heparin due to CKD Clinical Quality Measures DVT/VTE Risk/Contraindication: Risk Factor Score Per Nursin RFS Level Per Nursing on Admit: 2=Moderate TITA HUTCHISON MD Jan 04, 2019 12:45 POS
[2019-01-04 16:03] VITALS: BP 160/82
[2019-01-04] MEDS: LACTOBACILLUS ACIDOPHILUS (PROBIOTIC) CAPSULE PO SCH (17:02)
--- NOTE | 2019-01-04 20:52 | NUR ---
PT BS 192 THIS EVENING. HELD NOVOLOG D/T PT NOT EATING WITH N/V. LEVEMIR STILL GIVEN AT THIS TIME.
--- NOTE | 2019-01-04 20:59 | Discharge Inst-Simple/Standard ---
Discharge Inst-Standard Patient Instructions/Follow Up Plan of Care/Instructions/FU: please continue to take your medications as written. please follow upw ith your PCP in the next week to follow up this hospital stay and with Dr. Robert as scheduled. Activity as Tolerated: Yes Discharge Diet: ADA Diet Return to The Hospital For: Fever, worsening swelling, rednes, or drainage, if you feel you are getting worse. Planned Outpatient Orders/Ref. Pneu Vac Indicated: Yes TITA HUTCHISON MD Jan 04, 2019 20:59 POS
[2019-01-04 23:53] VITALS: BP 149/72
[2019-01-05] MEDS: HYDROcodone/APAP 5 MG/325 MG (LORTAB) TAB PO PRN ×5 (04:44→23:02)
[2019-01-05] MEDS: LACTOBACILLUS ACIDOPHILUS (PROBIOTIC) CAPSULE PO SCH ×3 (04:45→16:59)
[2019-01-05] MEDS: ONDANSETRON 4 MG/2 ML (SDV) Z0FRAN IV PRN ×2 (04:48→09:37)
[2019-01-05 05:30] LABS: HEMOGLOBIN 11.5 G/DL (11.5-16.0); MEAN PLATELET VOLUME 13.2 FL (7.4-10.4); RED CELL DISTRIBUTION WIDTH 13.4 % (10.0-14.5); WHITE BLOOD COUNT 5.2 10^3/uL (4.3-11.0)
[2019-01-05 05:44] LABS: CALCIUM 8.6 MG/DL (8.5-10.1); CREATININE SERUM 1.82 MG/DL (0.60-1.30); POTASSIUM 3.7 MMOL/L (3.6-5.0)
[2019-01-05] MEDS: inSUlin ASPART (NovoLOG) 1 UNIT/0.01 ML (CHARGE PER UNIT) SC SCH ×4 (05:44→21:20)
[2019-01-05] MEDS: fentaNYL INJECTION 100 MCG/2 ML AMP IV PRN (07:40)
[2019-01-05 08:00] VITALS: BP 150/70
[2019-01-05] MEDS: ATENOLOL 50 MG (TENORMIN) TAB PO SCH (08:46)
[2019-01-05] MEDS: DOXYCYCLINE INJECTION 100 MG in NS (IVPB) 100 ML IV SCH ×2 (08:46→21:20)
[2019-01-05] MEDS: PIPERACILLIN/TAZO 4.5 GM/NS 100 ML IV SCH ×2 (12:11)
--- NOTE | 2019-01-05 12:56 | Progress Note - Hospitalist ---
Subjective HPI/CC On Admission Date Seen by Provider: Jan 05, 2019 Time Seen by Provider: 12:55 Subjective/Events-last exam Pt reports nausea. Has ensure in her hands but states she's too nauseated to drink it. She does actually take multiple sips of it while I was in the room though. Objective Exam Vital Signs Vital Signs Date Time Temp Pulse Resp B/P (MAP) Pulse Ox O2 Delivery O2 Flow Rate FiO2 01/05/19 10:10 36.8 01/05/19 08:00 63 20 150/70 (96) 96 Room Air Capillary Refill : Less Than 3 Seconds General Appearance: No Apparent Distress, Chronically ill Cardiovascular: Regular Rate, Rhythm, No Murmur Gastrointestinal: Normal Bowel Sounds, Non Tender, Soft Neurologic/Psychiatric: Alert, Oriented x3 (i am concerned about recall though) Results/Procedures Lab Laboratory Tests 01/05/19 04:36 Patient resulted labs reviewed. Assessment/Plan Assessment and Plan Assess & Plan/Chief Complaint left leg abscess- s/p I&D in the ER, culture growing stap aureus- awaiting sensitivities- continue current abx acute on chronic kidney failure- improving, appears to be near baseline- stable without IVF uncontrolled diabetes mellitus II- a1c 12.3 this month, continue insulin; likely due to noncompliance because BS well controlled on current regimen HTN- continue atenolol, Lisinopril held for SANTO Anemia of CKD- stable, trend Nausea- Continue Zofran DVT ppx- heparin due to CKD Clinical Quality Measures DVT/VTE Risk/Contraindication: Risk Factor Score Per Nursin RFS Level Per Nursing on Admit: 2=Moderate TITA HUTCHISON MD Jan 05, 2019 12:56 POS
[2019-01-05] MEDS: PROMETHAZINE 25 MG (PHENERGAN) TAB PO PRN ×2 (14:11→18:32)
[2019-01-05 16:48] VITALS: BP 162/75
[2019-01-05] MEDS: ARTIFICAL TEARS 0.4 ML UNIT DOSE (REFRESH PLUS) OU PRN (19:24)
[2019-01-06] VITALS: BP 145/72
[2019-01-06] MEDS: PIPERACILLIN/TAZO 4.5 GM/NS 100 ML IV SCH ×2 (00:24)
[2019-01-06] MEDS: HYDROcodone/APAP 5 MG/325 MG (LORTAB) TAB PO PRN ×3 (03:04→11:07)
[2019-01-06] MEDS: inSUlin ASPART (NovoLOG) 1 UNIT/0.01 ML (CHARGE PER UNIT) SC SCH ×2 (06:12→11:15)
[2019-01-06] MEDS: LACTOBACILLUS ACIDOPHILUS (PROBIOTIC) CAPSULE PO SCH ×2 (06:12→11:42)
[2019-01-06 08:00] VITALS: BP 131/66
[2019-01-06] MEDS ORDERED: PIPERACILLIN/TAZO 4.5 GM/NS 100 ML IV SCH ×2 (08:00)
[2019-01-06] MEDS: ATENOLOL 50 MG (TENORMIN) TAB PO SCH (08:30)
[2019-01-06] MEDS: DOXYCYCLINE INJECTION 100 MG in NS (IVPB) 100 ML IV SCH (08:31)
[2019-01-06] MEDS: ONDANSETRON 4 MG/2 ML (SDV) Z0FRAN IV PRN (08:33)
[2019-01-06] MEDS: ARTIFICAL TEARS 0.4 ML UNIT DOSE (REFRESH PLUS) OU PRN (10:24)
[2019-01-06] MEDS: PROMETHAZINE 25 MG (PHENERGAN) TAB PO PRN (11:07)
--- NOTE | 2019-01-06 12:29 | Discharge Summary ---
Discharge Summary Hospital Course Was the Problem List Reviewed?: Yes Problems/Dx: (1) Abscess of left lower extremity excluding foot Status: Acute (2) Diabetes mellitus type II, uncontrolled (3) Acute on chronic renal failure Qualifiers: Qualified Codes: N17.9 - Acute kidney failure, unspecified; N18.3 - Chronic kidney disease, stage 3 (moderate) (4) HTN (hypertension) (5) History of ulcerative colitis Status: Chronic Hospital Course Date of Admission: Jan 02, 2019 at 13:38 Admission Diagnosis : as above Family Physician/Provider: Diego Mendez MD Date of Discharge: 01/06/19 Discharge Diagnosis: see above Hospital Course: 73 yo F admitted for observation for left leg wound that was I/D with improvement. Cultures came back as MSSA. She was to be discharge yesterday but she was too nauseated and did not feel well enough. Also final results on culture were not back. Her acute on chronic kidney failure improved with IVF and hold nephrotoxic agents. She will follow up with Dr. Robert 01/07/19 for wound care. She is stable for discharge 01/06/19 Labs and Pending Lab Test: Laboratory Tests 01/05/19 16:48: Glucometer 242H 01/05/19 21:01: Glucometer 294H 01/06/19 05:54: Glucometer 184H Microbiology 01/02/19 Gram Stain - Final, Complete 01/02/19 Wound Culture - Final, Complete Staphylococcus aureus Home Meds Active Reported Triamcinolone Acetonide 0.1% Cream (Triamcinolone Acet) 15 Gm Cr TOP BID 10 Day s APPLY TO LEFT LEG - 10 DAY SUPPLY FILLED 12-26-18 Atenolol 50 Mg Tablet 50 Mg PO DAILY Lisinopril 5 Mg Tablet 5 Mg PO DAILY Victoza 3-Raj (Liraglutide) 0.6 Mg/0.1 Ml Pen.injctr 0.6 Mg SC TIDAC LAST FILLED 9ML 07-09-18 Basaglar Kwikpen U-100 (Insulin Glargine,Hum.rec.anlog) 100 Unit/1 Ml Insuln.pen 20 Units SC HS Motrin Pm Caplet (Ibuprofen/Diphenhydramine Cit) 1 Each Tablet 2 Tab PO HS Centrum Adults Tablet (Multivitamin/Iron/Folic Acid) 1 Each Tablet 1 Tab PO DAILY Assessment/Pt Instructions --complete doxycycline course of antibiotics- -resume basaglar insulin every evening- at 20 units. -victoza 0.6mg subcutaneously daily -get a follow up appointment with endocrinology -follow up with Dr. Robert 8am at wound care 01/07/19 Discharge Planning: <30 minutes discharge planning Discharge Instructions Discharge Diet: ADA Diet Activity as Tolerated: Yes Pneumonia Vaccine Order Indica: Yes Discharge Physical Examination Vital Signs Vital Signs Date Time Temp Pulse Resp B/P (MAP) Pulse Ox O2 Delivery O2 Flow Rate FiO2 01/06/19 08:00 37.0 55 16 131/66 (87) 97 Room Air General Appearance: No Apparent Distress, WD/WN HEENT: PERRL/EOMI Respiratory: Lungs Clear, Normal Breath Sounds Cardiovascular: Regular Rate, Rhythm Gastrointestinal: Non Tender, Soft Skin: Warm/Dry, Other (left lateral leg- wrapped in gauze. erythema, swelling improved- drainage improved.) Neurologic/Psychiatric: Alert, Oriented x3 Allergies: Coded Allergies: Sulfa (Sulfonamide Antibiotics) (Verified Allergy, Unknown, 06/11/06) Discharge Summary Date of Admission Jan 02, 2019 at 13:38 Date of Discharge December Discharge Date: Jan 06, 2019 Admission Diagnosis Left leg ulcer uncontrolled DMII acute on chronic renal failure htn Discharge Diagnosis see below (1) Abscess of left lower extremity excluding foot Status: Acute (2) Diabetes mellitus type II, uncontrolled Assessment & Plan: Hga1c 12.3 12/31/18 (3) Acute on chronic renal failure Qualifiers: Qualified Codes: N17.9 - Acute kidney failure, unspecified; N18.3 - Chronic kidney disease, stage 3 (moderate) (4) HTN (hypertension) (5) History of ulcerative colitis Status: Chronic Clinical Quality Measures DVT/VTE Risk/Contraindication: Risk Factor Score Per Nursin RFS Level Per Nursing on Admit: 2=Moderate DIEGO MENDEZ MD Jan 06, 2019 12:27 POS
[2019-01-06] MEDS ORDERED: ACHD5005 PO (12:34)
[2019-01-06] MEDS ORDERED: DOXY100C2 PO (12:34)
[2019-01-06] MEDS ORDERED: LIRA0.6P3 SC (12:34)
[2019-01-06 14:40] VITALS: BP 131/66
--- OUTSIDE RECORDS SUMMARY | 2019-01-29 06:04 | XMS REPORT | CCD ---
Author Author Baylee Burrell Organization Maude Man MD, [facility] Address [address] [place] [address] Phone Care Team Providers Care Oyster Grader Name Role Phone PP Unavailable CCM Unavailable Summary Purpose Interface Exchange Insurance Providers Payer name Policy type / Coverage type Covered constitution party ID Effective Begin Date Effective End Date WPS Medicare Part B Blue Cross/Blue Shield [id number] Unknown Blue Cross Blue Shield [facility] Tir[place] e Cross/Blue Shield [id number] Un known Blue Cross/Blue Shield [id number] Unknown Family history Sister Diagnosis Age At Onset Osteoporosis Unknown Father Diagnosis Age At Onset Osteoporosis Unknown Brother Diagnosis Age At Onset Hypertension Unknown Hyperlipidemia Unknown Myocardial infarction Unknown Mother Diagnosis Age At Onset Skin cancer Unknown Diabetes mellitus Type 2 Unknown Hypertension Unknown Depression Unknown Asthma Unknown Osteoporosis Unknown Social History Social History Element Codes Description Effective Dates Marital status Unknown M arried 04/24/2017 Number of children Unknown 1 04/24/2017 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 04/24/[address]: 360700006 Never smoker 04/24/[address]: 638058847 Never drinks alcohol 04/24/2017 Allergies, Adverse Reactions, Alerts Substance Reaction Codes Entered Date Inactivated Date Status Levaquin RxNorm: 78428 04/24/2017 No Inactive Date Active Past Medical History Illness Codes Condition Status Onset Date Resolved Date Chronic kidney disea se, stage 3 (moderate) ICD-9: 585.3 ICD-10: N18.3 Active 05/06/2018 Unknown Essential (primary) hypertension ICD-9: 401.9 ICD-10: I10 Active 04/24/2017 Unknown Acute laryngopharyng itis ICD-9: 465.0 ICD-10: J06.0 Active 05/30/2018 Unknown Localized edema ICD-9: 782.3 ICD-10: R60.0 Active 05/23/2018 Unknown Other allergic rhinitis ICD-9: 477.8 ICD-10: J30.89 Active 05/30/2018 Unknown Dysuria ICD-9: 788.1 ICD-10: R30.0 Active 05/23/2018 Unknown Type 2 diabetes karina itus with hyperglycemia ICD-9: 250.02 ICD-10: E11.65 Active 06/04/2017 Unknown Left upper quadrant pain ICD-9: 789.02 ICD-10: R10.12 Active 05/06/2018 Unknown Low back pain ICD-9: 724.2 ICD-10: M54.5 Active 02/01/2018 Unknown Pain in left hip ICD-9: 719.45 ICD-10: M25.552 Active 05/06/2018 Unknown Pain in left shoulder ICD-9: 719.41 ICD-10: M25.512 Active 05/06/2018 Unknown Repeated falls ICD-9: E888.9 ICD-10: R29.6 Active 05/06/2018 Unknown Unsteadiness on feet ICD-9: 781.2 ICD-10: R26.81 Active 02/01/2018 Unknown Headache ICD-9: 784.0 ICD-10: R51 Active 04/30/2018 Unknown Acute recurrent maxi llary sinusitis ICD-9: 461.0 ICD-10: J01.01 Active 06/04/2017 Unknown Rash and other nonsp ecific skin eruption ICD-9: 782.1 ICD-10: R21 Active 03/19/2018 Unknown Orthostatic hypotension ICD-9: 458.0 ICD-10: I95.1 Active 08/23/2017 Unknown Major depressive dis order, recurrent, in partial remission ICD-9: 296.35 ICD-10: F33.41 Active 04/24/2017 Unknown Other fatigue ICD-9: 780.79 ICD-10: R53.83 Active 08/23/2017 Unknown Pouchitis ICD-9: 569.71 ICD-10: K91.850 Active 08/23/2017 Unknown blindness Unknown Active 04/24/2017 Unknow n Cataract Unknown Active 04/24/2017 Unknow n Depression Unknown Active 04/24/2017 Unknow n Diabetes Unknown Active 04/24/2017 Unknow n Diabetes mellitus Ty pe 2 Unknown Active 04/24/2017 Unknown Hypertension Unknown Active 04/24/2017 Unknow n Ulcerative colitis Unknown Active 04/24/2017 Unknown Dry eye syndrome of bilateral lacrimal glands ICD-9: 375.15 ICD-10: H04.123 Active 04/24/2017 Unknown Left lower quadrant pain ICD-9: 789.04 ICD-10: R10.32 Active 04/24/2017 Unknown Melena ICD-9: 578.1 ICD-10: K92.1 Active 04/24/2017 Unknown Other ulcerative col itis with unspecified complications ICD-9: 556.8 ICD-10: K51.819 Active 04/24/2017 Unknown Type 2 diabetes karina itus without complications ICD-9: 250.00 ICD-10: E11.9 Active 04/24/2017 Unknown Problems Condition Codes Effectiv e Dates Condition Status Chronic kidney disea se, stage 3 (moderate) ICD-9: 585.3 ICD-10: N18.3 05/06/2018 Active Essential (primary) hypertension ICD-9: 401.9 ICD-10: I10 04/24/2017 Active Acute laryngopharyng itis ICD-9: 465.0 ICD-10: J06.0 05/30/2018 Active Localized edema ICD-9: 782.3 ICD-10: R60.0 05/23/2018 Active Other allergic rhinitis ICD-9: 477.8 ICD-10: J30.89 05/30/2018 Active Dysuria ICD-9: 788.1 ICD-10: R30.0 05/23/2018 Active Type 2 diabetes karina itus with hyperglycemia ICD-9: 250.02 ICD-10: E11.65 06/04/2017 Active Left upper quadrant pain ICD-9: 789.02 ICD-10: R10.12 05/06/2018 Active Low back pain ICD-9: 724.2 ICD-10: M54.5 02/01/2018 Active Pain in left hip ICD-9: 719.45 ICD-10: M25.552 05/06/2018 Active Pain in left shoulder ICD-9: 719.41 ICD-10: M25.512 05/06/2018 Active Repeated falls ICD-9: E888.9 ICD-10: R29.6 05/06/2018 Active Unsteadiness on feet ICD-9: 781.2 ICD-10: R26.81 02/01/2018 Active Headache ICD-9: 784.0 ICD-10: R51 04/30/2018 Active Acute recurrent maxi llary sinusitis ICD-9: 461.0 ICD-10: J01.01 06/04/2017 Active Rash and other nonsp ecific skin eruption ICD-9: 782.1 ICD-10: R21 03/19/2018 Active Orthostatic hypotension ICD-9: 458.0 ICD-10: I95.1 08/23/2017 Active Major depressive dis order, recurrent, in partial remission ICD-9: 296.35 ICD-10: F33.41 04/24/2017 Active Other fatigue ICD-9: 780.79 ICD-10: R53.83 08/23/2017 Active Pouchitis ICD-9: 569.71 ICD-10: K91.850 08/23/2017 Active blindness Unknown 04/24/2017 Active Cataract Unknown 04/24/2017 Active Depression Unknown 04/24/2017 Active Diabetes Unknown 04/24/2017 Active Diabetes mellitus Ty pe 2 Unknown 04/24/2017 Activ e Hypertension Unknown 04/24/2017 Active Ulcerative colitis Unknown 04/24/2017 Active Dry eye syndrome of bilateral lacrimal glands ICD-9: 375.15 ICD-10: H04.123 04/24/2017 Active Left lower quadrant pain ICD-9: 789.04 ICD-10: R10.32 04/24/2017 Active Melena ICD-9: 578.1 ICD-10: K92.1 04/24/2017 Active Other ulcerative col itis with unspecified complications ICD-9: 556.8 ICD-10: K51.819 04/24/2017 Active Type 2 diabetes karina itus without complications ICD-9: 250.00 ICD-10: E11.9 04/24/2017 Active Medications Medication Codes Instruc tions Start Date Stop Date Sta tus Fill Instructions tramadol 50 mg tablet RxNorm: 769262 1 Tablet(s) PO Q6 PRN 06/26/2018 No Stop Date Active Lasix 20 mg tablet RxNorm: 606510 Tablet(s) PO Lasix 40mg daily x 3 days, then 20mg daily as needed for swelling or weight gain over 3 lbs 05/30/2018 No Stop Date Active potassium chloride E R 10 mEq tablet,extended release RxNorm: 395343 Tablet(s) potassium 20meq daily x 3 days then 10meq daily ONLY when taking the lasix. 05/30/2018 No Stop Date Active Augmentin 500 mg-125 mg tablet RxNorm: 347513 1 Tablet(s) PO TID 05/30/2018 06/08/2018 Inactive tramadol 50 mg tablet RxNorm: 981531 1 Tablet(s) PO Q6 PRN 05/29/2018 No Stop Date Active Basaglar KwikPen U-1 00 Insulin 100 unit/mL (3 mL) subcutaneous RxNorm: 0351820 50 Unit(s) SQ daily 05/29/2018 12/24/2018 Active qty sufficient for 1 month potassium chloride E R 20 mEq tablet,extended release RxNorm: 488024 1 Tablet(s) PO daily 05/23/2018 05/25/2018 Inactive Lasix 40 mg tablet RxNorm: 385772 1 Tablet(s) PO daily 05/23/2018 05/25/2018 Inactive Keflex 500 mg capsule RxNorm: 941758 1 Capsule(s) PO TID 05/23/2018 05/29/2018 Inactive Zofran 4 mg tablet RxNorm: 874812 1 Tablet(s) PO Q6 PRN 05/06/2018 No Stop Date Active tramadol 50 mg tablet RxNorm: 963220 1 Tablet(s) PO Q6 PRN 05/06/2018 05/28/2018 Inactive Basaglar KwikPen U-1 00 Insulin 100 unit/mL (3 mL) subcutaneous RxNorm: 9254515 46 Unit(s) SQ daily 05/03/2018 05/28/2018 Inactive qty sufficient for 1 month doxycycline hyclate 100 mg tablet RxNorm: 5614929 1 Tablet(s) PO BID 03/19/2018 03/25/2018 Inactive mupirocin 2 % topica l ointment RxNorm: 090242 1 Application TOP BID 03/19/2018 03/28/2018 Inactive Basaglar KwikPen U-1 00 Insulin 100 unit/mL (3 mL) subcutaneous RxNorm: 4115154 45 Unit(s) SQ daily 03/06/2018 05/02/2018 Inactive Basaglar KwikPen U-1 00 Insulin 100 unit/mL (3 mL) subcutaneous RxNorm: 5143393 45 Unit(s) SQ daily 03/06/2018 03/05/2018 Inactive Toujeo SoloStar U-30 0 Insulin 300 unit/mL (1.5 mL) subcutaneous pen RxNorm: 0876825 Unit(s) INJECT 45 UNITS UNDER THE SKIN DAILY 02/22/2018 03/05/2018 Inactive 30 d ay supply Toujeo SoloStar U-30 0 Insulin 300 unit/mL (1.5 mL) subcutaneous pen RxNorm: 1667311 INJECT 40 UNITS UNDER THE SKIN DAILY 02/21/2018 02/21/2018 Inactive Keflex 500 mg capsule RxNorm: 577958 1 Capsule(s) PO TID 02/01/2018 02/07/2018 Inactive Toujeo SoloStar U-30 0 Insulin 300 unit/mL (1.5 mL) subcutaneous pen RxNorm: 2730878 45 Unit(s) SQ daily 12/26/2017 No Stop Date Active atorvastatin 40 mg t ablet RxNorm: 782998 Tablet(s) TAKE ONE-REA LF TABLET BY MOUTH EVERY EVENING 12/26/2017 No Stop Date Active Restasis 0.05 % eye drops in a dropperette RxNorm: 199654 INSTILL ONE DROP IN E [facility] EYE EVERY 12 HOURS 12/24/2017 04/22/2018 Inactive atorvastatin 40 mg t ablet RxNorm: 504173 TAKE ONE TABLET BY [facility] EVERY EVENING 12/17/2017 12/25/2017 In active venlafaxine ER 150 m g tablet,extended release 24 hr RxNorm: 537479 TAKE ONE CAPSULE BY MOUTH DAILY 10/11/2017 07/07/2018 Active metoprolol succinate ER 50 mg tablet,extended release 24 hr RxNorm: 277142 TAKE ONE TABLET BY MOUTH DAILY 10/11/2017 07/07/2018 Active atorvastatin 40 mg t ablet RxNorm: 279371 TAKE ONE TABLET BY MO [facility] EVERY EVENING 10/11/2017 12/16/2017 In active metoprolol succinate ER 25 mg tablet,extended release 24 hr RxNorm: 735197 1/2 Tablet(s) PO daily 09/18/2017 03/16/2018 Inactive metronidazole 500 mg tablet RxNorm: 117940 1 Tablet(s) PO TID 08/23/2017 09/01/2017 Inactive Diflucan 150 mg tablet RxNorm: 393723 1 Tablet(s) PO daily 08/23/2017 09/01/2017 Inactive atorvastatin 40 mg t ablet RxNorm: 493634 1 Tablet(s) PO QPM 08/02/2017 10/10/2017 Inactive Toujeo SoloStar U-30 0 Insulin 300 unit/mL (1.5 mL) subcutaneous pen RxNorm: 5922905 40 Unit(s) SQ daily 07/30/2017 12/25/2017 Inactive Novofine 32 32 gauge x 1/4" needle RxNorm: USE TO TEST BLOOD SUGAR ONC E DAILY 07/26/2017 04/16/2019 Ac tive Toujeo SoloStar U-30 0 Insulin 300 unit/mL (1.5 mL) subcutaneous pen RxNorm: 6420032 INJECT 24 UNITS UNDER THE SKIN EVERY EVENING 07/26/2017 07/29/2017 Inactive Apidra U-100 Insulin 100 unit/mL subcutaneous solution RxNorm: 920875 5 Unit(s) SQ AC 06/06/2017 06/06/2017 Inactive start with 5 units with breakfast -call with blood sugars in 1 week Keflex 500 mg capsule RxNorm: 841735 1 Capsule(s) PO TID 06/04/2017 06/10/2017 Inactive Apidra U-100 Insulin 100 unit/mL subcutaneous solution RxNorm: 925282 5 Unit(s) SQ AC 06/04/2017 06/05/2017 Inactive start with 5 units with breakfast -call with blood sugars in 1 week Restasis 0.05 % eye drops in a dropperette RxNorm: 711028 1 gtts ophthalmic (ey e) Q12H 06/04/2017 07/03/2017 Inactive Toujeo SoloStar U-30 0 Insulin 300 unit/mL (1.5 mL) subcutaneous pen RxNorm: 8414386 28 Unit(s) SQ QPM x1 week, then 32 units daily. 04/26/2017 08/28/2017 Inactive Restasis MultiDose 0 .05 % eye drops RxNorm: 188327 1 Drop(s) ophthalmic (eye) daily - BID 04/24/2017 No Stop Date Active cyanocobalamin (vit B-12) 1,000 mcg/mL injection solution RxNorm: 358696 1 Milliliter(s) Inj QW -BIW 04/24/2017 07/22/2017 Inactive disp with syringes please Toudaphneo SoloStar U-30 0 Insulin 300 unit/mL (1.5 mL) subcutaneous pen RxNorm: 5989220 24 Unit(s) SQ QPM 04/24/2017 04/23/2017 Inactive Novofine 32 32 gauge x 1/4" needle RxNorm: 1 test Miscellaneous daily 04/24/2017 07/22/2017 In active E11.65 use with westley venlafaxine ER 150 m g tablet,extended release 24 hr RxNorm: 561361 1 Tablet(s) PO daily 04/24/2017 10/10/2017 Inactive cyanocobalamin (vit B-12) 1,000 mcg/mL injection solution RxNorm: 094757 1 Milliliter(s) Inj QW -BIW 04/24/2017 04/23/2017 Inactive metoprolol succinate ER 50 mg tablet,extended release 24 hr RxNorm: 456246 1 Tablet(s) PO daily 04/24/2017 09/17/2017 Inactive Toujeo SoloStar U-30 0 Insulin 300 unit/mL (1.5 mL) subcutaneous pen RxNorm: 0989779 24 Unit(s) SQ QPM 04/24/2017 04/25/2017 Inactive Centrum Silver tablet RxNorm: 1 Tablet(s) PO daily No Start Date Active Novolog U-100 Insuli n aspart 100 unit/mL subcutaneous solution RxNorm: 786965 5 Unit(s) SQ AC No Start Date Active magnesium 250 mg tablet RxNorm: 1 Tablet(s) PO as needed No Start Date Active Probiotic Blend oral RxNorm: 962724 oral No Start Date Active Calcium 600 + D(3) 6 00 mg (1,500 mg)-400 unit tablet RxNorm: 415990 1 Tablet(s) PO as needed No Start Date Active atorvastatin 40 mg t ablet RxNorm: 636763 1 Tablet(s) PO QPM No Start Date 08/01/2017 Inactive Novofine 32 32 gauge x 1/4" needle RxNorm: 1 Miscellaneous daily No Start Date 04/23/2017 Inactive cyanocobalamin (vit B-12) 1,000 mcg/mL injection solution RxNorm: 544097 1 Milliliter(s) Inj No Start Date 04/23/2017 Inactive metoprolol succinate ER 50 mg tablet,extended release 24 hr RxNorm: 201297 1 Tablet(s) PO daily No Start Date 04/23/2017 Inactive lisinopril 5 mg tablet RxNorm: 743879 1 Tablet(s) PO QPM No Start Date 04/23/2017 Inactive Restasis MultiDose 0 .05 % eye drops RxNorm: 577801 Drop(s) ophthalmic (e ye) No Start Date 04/23/2017 Inactive venlafaxine ER 150 m g capsule,extended release 24 hr RxNorm: 303818 1 Capsule(s) PO daily No Start Date 04/23/2017 Inactive Toujeo SoloStar U-30 0 Insulin subcutaneous RxNorm: subcutaneous No Start Date 04/23/2017 Inactive Medication Administered No Medication Administered data Immunizations No Immunization data Assessments Condition Codes Effectiv e Dates Essential (primary) hypertension ICD -10: I10 ICD-9: 401.9 06/19/2018 Chronic kidney disease, stage 3 (moderate) ICD-10: N18.3 ICD-9: 585.3 06/19/2018 Acute laryngopharyngitis ICD-10: J06 .0 ICD-9: 465.0 05/30/2018 Localized edema ICD-10: R60.0 ICD-9: 782.3 05/30/2018 Other allergic rhinitis ICD-10: J30. 89 ICD-9: 477.8 05/30/2018 Type 2 diabetes mellitus with hyperglycemia ICD-10: E11.65 ICD-9: 250.02 05/23/2018 Dysuria ICD-10: R30.0 ICD-9: 788.1 05/23/2018 Pain in left hip ICD-10: M25.552 ICD-9: 719.45 05/06/2018 Left upper quadrant pain ICD-10: R10 .12 ICD-9: 789.02 05/06/2018 Unsteadiness on feet ICD-10: R26.81 ICD-9: 781.2 05/06/2018 Repeated falls ICD-10: R29.6 ICD-9: E888.9 05/06/2018 Pain in left shoulder ICD-10: M25.51 2 ICD-9: 719.41 05/06/2018 Low back pain ICD-10: M54.5 ICD-9: 724.2 05/06/2018 Headache ICD-10: R51 ICD-9: 784.0 04/30/2018 Rash and other nonspecific skin eruption ICD-10: R21 ICD-9: 782.1 03/19/2018 Acute recurrent maxillary sinusitis ICD-10: J01.01 ICD-9: 461.0 03/19/2018 Other fatigue ICD-10: R53.83 ICD-9: 780.79 12/13/2017 Major depressive disorder, recurrent, in partial remis german ICD-10: F33.41 ICD-9: 296.35 09/18/2017 Orthostatic hypotension ICD-10: I95. 1 ICD-9: 458.0 08/23/2017 Pouchitis ICD-10: K91.850 ICD-9: 569.71 08/23/2017 Left lower quadrant pain ICD-10: R10 .32 ICD-9: 789.04 04/24/2017 Other ulcerative colitis with unspecified complication s ICD- 10: K51.819 ICD-9: 556.8 04/24/2017 Type 2 diabetes mellitus without complications ICD-10: E11.9 ICD-9: 250.00 04/24/2017 Melena ICD-10: K92.1 ICD-9: 578.1 04/24/2017 Reason For Visit Reason For Visit Effective Dates Notes sinus congestion 05/30/2018 edema 05/23/2018 abdominal pain 05/06/2018 dizziness 04/30/2018 sore throat 03/19/2018 low back and leg pain 02/01/2018 headache 12/13/2017 diabetes mellitus 09/18/2017 gait abnormality 08/23/2017 diabetes mellitus 06/20/2017 continuous blood glucose monitor diabetes mellitus 06/11/2017 diabetes mellitus 06/04/2017 diabetes mellitus 04/24/2017 Results Observation Observation Code Item Item Code Result Date Lipase Aue478 LIPASE 26 U/L 05/06/2018 Comp Metabolic Chn942 NA 140 mEq/L 05/06/2018 Comp Metabolic Ljq474 K 4.5 mEq/L 05/06/2018 Comp Metabolic Ruw908 CL 109 mEq/L 05/06/2018 Comp Metabolic Qqs764 CO2 24.0 mEq/L 05/06/2018 Comp Metabolic Rou757 AN ION GAP 12 05/06/2018 Comp Metabolic Qmu071 GL UCOSE 341 mg/dL 05/06/2018 Comp Metabolic Ilt465 Cr eat 1.6 mg/dL 05/06/2018 Comp Metabolic Sud722 eG FR 34 ml/min/1.73m2 05/06 Comp Metabolic Ntk689 BUN 39 mg/dL 05/06/2018 Comp Metabolic Qlh172 B/ C Ratio 24.7 Ratio 05/06/2018 Comp Metabolic Xlw029 CA LCIUM 9.1 mg/dL 05/06/2018 Comp Metabolic Nsw979 AL K PHOS 61 U/L 05/06/2018 Comp Metabolic Ivj824 T(SGOT) 21 U/L 05/06/2018 Comp Metabolic Fvl721 AL T(SGPT) 28 U/L 05/06/2018 Comp Metabolic Oeu062 BI LI T 0.3 mg/dL 05/06/2018 Comp Metabolic Sdc009 AL BUMIN 3.8 g/dL 05/06/2018 Comp Metabolic Dsf002 TP RO 6.1 g/dL 05/06/2018 Comp Metabolic Hmt220 GL OB 2.4 g/dL 05/06/2018 Comp Metabolic Gkb703 A/ G Ratio 1.6 Ratio 05/06/2018 Comp Metabolic Tah119 Os mo 302 mOsmo 05/06/2018 Amylase Ord34 AMYLASE 48 U/L 05/06/2018 Lipid Ord30 CHOL 171 mg/dL 12/13/2017 Lipid Ord30 HDL 64.0 mg/dl 12/13/2017 Lipid Ord30 TRIG 89 mg/dL 12/13/2017 Lipid Ord30 LDL 89 mg/dL 12/13/2017 Lipid Ord30 C/HDL 2.7 Ratio 12/13/2017 Comp Metabolic Rpc758 NA 140 mEq/L 12/13/2017 Comp Metabolic Bnp612 K 4.4 mEq/L 12/13/2017 Comp Metabolic Mgk157 CL 107 mEq/L 12/13/2017 Comp Metabolic Wvf324 CO2 23.0 mEq/L 12/13/2017 Comp Metabolic Kep796 AN ION GAP 14 12/13/2017 Comp Metabolic Knc007 GL UCOSE 179 mg/dL 12/13/2017 Comp Metabolic Glq589 Cr eat 1.7 mg/dL 12/13/2017 Comp Metabolic Vsa767 eG FR 31 ml/min/1.73m2 12/13 Comp Metabolic Ows662 BUN 40 mg/dL 12/13/2017 Comp Metabolic Rmq784 B/ C Ratio 23.3 Ratio 12/13/2017 Comp Metabolic Cve936 CA LCIUM 10.3 mg/dL 12/13/2017 Comp Metabolic Wku263 AL K PHOS 54 U/L 12/13/2017 Comp Metabolic Yrm495 T(SGOT) 41 U/L 12/13/2017 Comp Metabolic Xbr488 AL T(SGPT) 44 U/L 12/13/2017 Comp Metabolic Zny328 BI LI T 0.4 mg/dL 12/13/2017 Comp Metabolic Ovq563 AL BUMIN 4.9 g/dL 12/13/2017 Comp Metabolic Nxf570 TP RO 7.7 g/dL 12/13/2017 Comp Metabolic Ytv050 GL OB 2.8 g/dL 12/13/2017 Comp Metabolic Fjj733 A/ G Ratio 1.8 Ratio 12/13/2017 Comp Metabolic Gnv228 Os mo 294 mOsmo 12/13/2017 Tsh Ord6 TSH (3rd IS) 2.56 uIU/mL 12/13/2017 %Hba1C Mlr263 % HbA1c 64927-1 9.6 % 12/13/2017 %Hba1C Lsr348 Gluc Ave 229 mg/dL 12/13/2017 Cbc With Differential Ord2 WBC 5.84 K/ul 12/13/2017 Cbc With Differential Ord2 RBC 4.15 M/ul 12/13/2017 Cbc With Differential Ord2 HGB 13.3 g/dl 12/13/2017 Cbc With Differential Ord2 HCT 41.0 % 12/13/2017 Cbc With Differential Ord2 Neut% 66.0 % 12/13/2017 Cbc With Differential Ord2 MCV 98.8 fl 12/13/2017 Cbc With Differential Ord2 Lymph% 24.7 % 12/13/2017 Cbc With Differential Ord2 MCH 32.0 pg 12/13/2017 Cbc With Differential Ord2 Coke% 8.0 % 12/13/2017 Cbc With Differential Ord2 MCHC 32.4 pg 12/13/2017 Cbc With Differential Ord2 Eos% 1.0 % 12/13/2017 Cbc With Differential Ord2 PLT 184 K/ul 12/13/2017 Cbc With Differential Ord2 Baso% 0.3 % 12/13/2017 Cbc With Differential Ord2 RDW 12.6 % 12/13/2017 Cbc With Differential Ord2 Neut ABS# 3.85 K/ul 12/13/2017 Cbc With Differential Ord2 Lymph ABS# 1.44 K/ul 12/13/2017 Cbc With Differential Ord2 Coke ABS# 0.5 K/ul 12/13/2017 Cbc With Differential Ord2 Eos ABS# 0.1 K/ul 12/13/2017 Cbc With Differential Ord2 Baso ABS# 0.0 K/ul 12/13/2017 %Hba1C Guy190 % HbA1c 53811-4 13.1 % 04/24/2017 %Hba1C Ojm555 Gluc Ave 329 mg/dL 04/24/2017 Cbc With Differential Ord2 WBC 7.65 K/ul 04/24/2017 Cbc With Differential Ord2 RBC 4.13 M/ul 04/24/2017 Cbc With Differential Ord2 HGB 13.2 g/dl 04/24/2017 Cbc With Differential Ord2 HCT 39.8 % 04/24/2017 Cbc With Differential Ord2 Neut% 56.1 % 04/24/2017 Cbc With Differential Ord2 MCV 96.4 fl 04/24/2017 Cbc With Differential Ord2 Lymph% 31.2 % 04/24/2017 Cbc With Differential Ord2 MCH 32.0 pg 04/24/2017 Cbc With Differential Ord2 Coke% 11.0 % 04/24/2017 Cbc With Differential Ord2 MCHC 33.2 pg 04/24/2017 Cbc With Differential Ord2 Eos% 1.6 % 04/24/2017 Cbc With Differential Ord2 PLT 214 K/ul 04/24/2017 Cbc With Differential Ord2 Baso% 0.1 % 04/24/2017 Cbc With Differential Ord2 RDW 12.8 % 04/24/2017 Cbc With Differential Ord2 Neut ABS# 4.29 K/ul 04/24/2017 Cbc With Differential Ord2 Lymph ABS# 2.39 K/ul 04/24/2017 Cbc With Differential Ord2 Coke ABS# 0.8 K/ul 04/24/2017 Cbc With Differential Ord2 Eos ABS# 0.1 K/ul 04/24/2017 Cbc With Differential Ord2 Baso ABS# 0.0 K/ul 04/24/2017 Comp Metabolic Vuc484 NA 142 mEq/L 04/24/2017 Comp Metabolic Xds711 K 3.8 mEq/L 04/24/2017 Comp Metabolic Ucj222 CL 105 mEq/L 04/24/2017 Comp Metabolic Rzn460 CO2 27.0 mEq/L 04/24/2017 Comp Metabolic Vmd779 AN ION GAP 14 04/24/2017 Comp Metabolic Nac558 GL UCOSE 203 mg/dL 04/24/2017 Comp Metabolic Qdq639 Cr eat 1.9 mg/dL 04/24/2017 Comp Metabolic Itp470 eG FR 28 ml/min/1.73m2 04/24 Comp Metabolic Aig173 BUN 26 mg/dL 04/24/2017 Comp Metabolic Cvh717 B/ C Ratio 13.6 Ratio 04/24/2017 Comp Metabolic Zgp288 CA LCIUM 9.9 mg/dL 04/24/2017 Comp Metabolic Ncp797 AL K PHOS 79 U/L 04/24/2017 Comp Metabolic Eji694 T(SGOT) 25 U/L 04/24/2017 Comp Metabolic Bho623 AL T(SGPT) 36 U/L 04/24/2017 Comp Metabolic Yub310 BI LI T 0.3 mg/dL 04/24/2017 Comp Metabolic Rme568 AL BUMIN 4.5 g/dL 04/24/2017 Comp Metabolic Mdj335 TP RO 6.9 g/dL 04/24/2017 Comp Metabolic Gft213 GL OB 2.5 g/dL 04/24/2017 Comp Metabolic Rke164 A/ G Ratio 1.8 Ratio 04/24/2017 Comp Metabolic Bhz585 Os mo 294 mOsmo 04/24/2017 Review of Systems System Result Effective Dates Constitutional recent illness 05/30/2018 Constitutional No chills 05/30/2018 Constitutional No diaphoresis 05/30/2018 Constitutional No fever 05/30/2018 Eyes No eye erythema Ears/Nose/Throat/Neck nasal allergies 05/30/2018 Ears/Nose/Throat/Neck nasal discharge 05/30/2018 Ears/Nose/Throat/Neck postnasal drip 05/30/2018 Ears/Nose/Throat/Neck sinus congestion 05/30/2018 Ears/Nose/Throat/Neck sore throat 05/30/2018 Cardiovascular No chest pain/pressure 05/30/2018 Cardiovascular No dyspnea 05/30/2018 Respiratory No chest congestion 05/30/2018 Respiratory cough 2018 Respiratory No dyspnea 0 05/30/2018 Gastrointestinal No constipation 05/30/2018 Gastrointestinal No diarrhea 05/30/2018 Gastrointestinal No nausea 05/30/2018 Gastrointestinal No vomiting 05/30/2018 Dermatologic No rash Neurologic No alteration of consciousness 05/30/2018 Neurologic No mental status change 05/30/2018 Constitutional No recent illness 05/23/2018 Constitutional No chills 05/23/2018 Constitutional No diaphoresis 05/23/2018 Constitutional No fever 05/23/2018 Eyes No eye erythema 12/2018 Ears/Nose/Throat/Neck No nasal discharge 05/23/2018 Cardiovascular No chest pain/pressure 05/23/2018 Cardiovascular No dyspnea 05/23/2018 Respiratory No chest congestion 05/23/2018 Respiratory No cough 12/2018 Gastrointestinal No abdominal pain 05/23/2018 Neurologic No alteration of consciousness 05/23/2018 Neurologic No mental status change 05/23/2018 Cardiovascular edema 12/2018 Endocrine diabetes mellitus type 2 05/23/2018 Genitourinary/Nephrology dysuria 05/23/2018 Genitourinary/Nephrology flank pain 05/23/2018 Constitutional recent illness 05/06/2018 Constitutional anorexia 05/06/2018 Constitutional No night sweats 05/06/2018 Constitutional No chills 05/06/2018 Constitutional No diaphoresis 05/06/2018 Constitutional fatigue 0 05/06/2018 Constitutional No fever 05/06/2018 Constitutional No insomnia 05/06/2018 Constitutional No malaise 05/06/2018 Constitutional No weight gain 05/06/2018 Constitutional No weight loss 05/06/2018 Eyes No eye erythema Eyes No eye discharge Ears/Nose/Throat/Neck dizziness 05/06/2018 Ears/Nose/Throat/Neck headache 05/06/2018 Cardiovascular No chest pain/pressure 05/06/2018 Cardiovascular No dyspnea 05/06/2018 Respiratory No cough Gastrointestinal abdominal pain 05/06/2018 Gastrointestinal No constipation 05/06/2018 Gastrointestinal No diarrhea 05/06/2018 Genitourinary/Nephrology No dysuria 05/06/2018 Musculoskeletal joint complaint 05/06/2018 Musculoskeletal back pain 05/06/2018 Musculoskeletal arthralgia(s) 05/06/2018 Musculoskeletal muscle weakness 05/06/2018 Dermatologic No rash Dermatologic No sores Neurologic No alteration of consciousness 05/06/2018 Neurologic headache 04/13 Neurologic gait abnormality 05/06/2018 Neurologic dizziness Neurologic ataxia 2018 Psychiatric anxiety 04/13 Psychiatric depression 0 05/06/2018 Endocrine No dry or coarse skin 05/06/2018 Eyes No eye discharge Eyes No eye erythema Ears/Nose/Throat/Neck dizziness 04/30/2018 Ears/Nose/Throat/Neck headache 04/30/2018 Cardiovascular No chest pain/pressure 04/30/2018 Cardiovascular No dyspnea 04/30/2018 Respiratory No cough Gastrointestinal No abdominal pain 04/30/2018 Gastrointestinal No constipation 04/30/2018 Gastrointestinal No diarrhea 04/30/2018 Genitourinary/Nephrology No dysuria 04/30/2018 Musculoskeletal arthralgia(s) 04/30/2018 Musculoskeletal back pain 04/30/2018 Musculoskeletal joint complaint 04/30/2018 Musculoskeletal muscle weakness 04/30/2018 Dermatologic No rash Dermatologic No sores Neurologic No alteration of consciousness 04/30/2018 Neurologic ataxia 2018 Neurologic dizziness Neurologic gait abnormality 04/30/2018 Neurologic headache 04/12 Psychiatric anxiety 04/12 Psychiatric depression 0 04/30/2018 Constitutional recent illness 04/30/2018 Constitutional No chills 04/30/2018 Constitutional No diaphoresis 04/30/2018 Constitutional No fever 04/30/2018 Constitutional fatigue 0 04/30/2018 Constitutional malaise 0 04/30/2018 Psychiatric No suicidality 04/30/2018 Constitutional recent illness 03/19/2018 Constitutional No anorexia 03/19/2018 Constitutional No night sweats 03/19/2018 Constitutional chills Constitutional No diaphoresis 03/19/2018 Constitutional fatigue 0 03/19/2018 Constitutional No fever 03/19/2018 Constitutional No insomnia 03/19/2018 Constitutional No malaise 03/19/2018 Constitutional No weight loss 03/19/2018 Constitutional No weight gain 03/19/2018 Eyes No eye discharge Eyes No eye erythema 06/2018 Ears/Nose/Throat/Neck nasal allergies 03/19/2018 Ears/Nose/Throat/Neck nasal discharge 03/19/2018 Ears/Nose/Throat/Neck otalgia 03/19/2018 Ears/Nose/Throat/Neck sinus congestion 03/19/2018 Ears/Nose/Throat/Neck sore throat 03/19/2018 Cardiovascular No chest pain/pressure 03/19/2018 Respiratory cough 2018 Gastrointestinal No abdominal pain 03/19/2018 Dermatologic rash 2018 Constitutional recent illness 02/01/2018 Constitutional No anorexia 02/01/2018 Constitutional night sweats 02/01/2018 Constitutional No chills 02/01/2018 Constitutional No diaphoresis 02/01/2018 Constitutional fatigue 1 04/04/2017 Constitutional No fever 02/01/2018 Constitutional No insomnia 02/01/2018 Constitutional No weight loss 02/01/2018 Constitutional No weight gain 02/01/2018 Constitutional No malaise 02/01/2018 Eyes No eye discharge Eyes No eye erythema Ears/Nose/Throat/Neck dizziness 02/01/2018 Ears/Nose/Throat/Neck headache 02/01/2018 Ears/Nose/Throat/Neck nasal allergies 02/01/2018 Ears/Nose/Throat/Neck nasal discharge 02/01/2018 Ears/Nose/Throat/Neck sinus congestion 02/01/2018 Ears/Nose/Throat/Neck No sore throat 02/01/2018 Cardiovascular No chest pain/pressure 02/01/2018 Cardiovascular No edema 02/01/2018 Respiratory cough 2017 Respiratory No productive sputum 02/01/2018 Gastrointestinal No abdominal pain 02/01/2018 Gastrointestinal No constipation 02/01/2018 Gastrointestinal No diarrhea 02/01/2018 Genitourinary/Nephrology No dysuria 02/01/2018 Musculoskeletal joint complaint 02/01/2018 Musculoskeletal back pain 02/01/2018 Dermatologic No rash Neurologic No alteration of consciousness 02/01/2018 Psychiatric anxiety 01/13 Constitutional anorexia 12/13/2017 Constitutional fatigue 1 02/12/2017 Constitutional insomnia 12/13/2017 Constitutional malaise 1 02/12/2017 Eyes No eye discharge Eyes No eye erythema 02/2017 Ears/Nose/Throat/Neck dizziness 12/13/2017 Ears/Nose/Throat/Neck sinus congestion 12/13/2017 Cardiovascular No chest pain/pressure 12/13/2017 Cardiovascular No dyspnea 12/13/2017 Respiratory No productive sputum 12/13/2017 Respiratory No cough 02/2017 Gastrointestinal abdominal pain 12/13/2017 Gastrointestinal No constipation 12/13/2017 Gastrointestinal No diarrhea 12/13/2017 Genitourinary/Nephrology No dysuria 12/13/2017 Musculoskeletal No joint complaint 12/13/2017 Dermatologic No rash 02/2017 Neurologic No alteration of consciousness 12/13/2017 Psychiatric anxiety 110 02/2017 Psychiatric depression 1 02/12/2017 Endocrine diabetes mellitus type 2 12/13/2017 Neurologic headache 02/2017 Constitutional recent illness 09/18/2017 Constitutional anorexia 09/18/2017 Constitutional fatigue 0 09/18/2017 Constitutional insomnia 09/18/2017 Constitutional malaise 0 09/18/2017 Eyes No eye discharge Eyes No eye erythema 08/2017 Ears/Nose/Throat/Neck dizziness 09/18/2017 Ears/Nose/Throat/Neck sinus congestion 09/18/2017 Cardiovascular No chest pain/pressure 09/18/2017 Cardiovascular No dyspnea 09/18/2017 Respiratory No productive sputum 09/18/2017 Respiratory No cough 08/2017 Gastrointestinal abdominal pain 09/18/2017 Gastrointestinal No constipation 09/18/2017 Gastrointestinal No diarrhea 09/18/2017 Genitourinary/Nephrology No dysuria 09/18/2017 Musculoskeletal No joint complaint 09/18/2017 Dermatologic No rash 08/2017 Neurologic No alteration of consciousness 09/18/2017 Psychiatric anxiety 080 08/2017 Psychiatric depression 0 09/18/2017 Constitutional recent illness 08/23/2017 Constitutional anorexia 08/23/2017 Constitutional No night sweats 08/23/2017 Constitutional No chills 08/23/2017 Constitutional No diaphoresis 08/23/2017 Constitutional fatigue 0 08/23/2017 Constitutional No fever 08/23/2017 Constitutional insomnia 08/23/2017 Constitutional malaise 0 08/23/2017 Eyes No eye discharge Eyes No eye erythema 01/2018 Ears/Nose/Throat/Neck dizziness 08/23/2017 Cardiovascular No chest pain/pressure 08/23/2017 Cardiovascular No dyspnea 08/23/2017 Respiratory No productive sputum 08/23/2017 Respiratory No cough 01/2018 Gastrointestinal abdominal pain 08/23/2017 Gastrointestinal No constipation 08/23/2017 Gastrointestinal No diarrhea 08/23/2017 Genitourinary/Nephrology No dysuria 08/23/2017 Musculoskeletal No joint complaint 08/23/2017 Dermatologic No rash 01/2018 Neurologic No alteration of consciousness 08/23/2017 Psychiatric anxiety 08/12 Psychiatric depression 0 08/23/2017 Endocrine weakness 08/23 Neurologic dizziness 01/2018 Constitutional No recent illness 06/20/2017 Constitutional No chills 06/20/2017 Constitutional No diaphoresis 06/20/2017 Constitutional No fatigue 06/20/2017 Eyes No eye erythema 10/2017 Ears/Nose/Throat/Neck No nasal discharge 06/20/2017 Cardiovascular No chest pain/pressure 06/20/2017 Respiratory No cough 10/2017 Gastrointestinal No abdominal pain 06/20/2017 Dermatologic No rash 10/2017 Neurologic No alteration of consciousness 06/20/2017 Endocrine diabetes mellitus type 2 06/20/2017 Constitutional recent illness 06/11/2017 Constitutional anorexia 06/11/2017 Constitutional night sweats 06/11/2017 Constitutional fatigue 0 06/11/2017 Constitutional fever Constitutional insomnia 06/11/2017 Constitutional malaise 0 06/11/2017 Eyes No eye discharge Eyes No eye erythema Ears/Nose/Throat/Neck dizziness 06/11/2017 Ears/Nose/Throat/Neck sinus congestion 06/11/2017 Cardiovascular No chest pain/pressure 06/11/2017 Cardiovascular No dyspnea 06/11/2017 Respiratory No productive sputum 06/11/2017 Respiratory No cough Gastrointestinal abdominal pain 06/11/2017 Gastrointestinal No constipation 06/11/2017 Gastrointestinal No diarrhea 06/11/2017 Genitourinary/Nephrology No dysuria 06/11/2017 Musculoskeletal No joint complaint 06/11/2017 Dermatologic No rash Neurologic No alteration of consciousness 06/11/2017 Psychiatric anxiety 05/15 Psychiatric depression 0 06/11/2017 Endocrine weakness 06/11 Constitutional diaphoresis 06/11/2017 Constitutional recent illness 06/04/2017 Constitutional anorexia 06/04/2017 Constitutional night sweats 06/04/2017 Constitutional chills Constitutional diaphoresis 06/04/2017 Constitutional fatigue 0 06/04/2017 Constitutional fever Constitutional insomnia 06/04/2017 Constitutional malaise 0 06/04/2017 Constitutional No weight loss 06/04/2017 Constitutional No weight gain 06/04/2017 Eyes No eye discharge Eyes No eye erythema Ears/Nose/Throat/Neck dizziness 06/04/2017 Ears/Nose/Throat/Neck headache 06/04/2017 Ears/Nose/Throat/Neck nasal discharge 06/04/2017 Ears/Nose/Throat/Neck otalgia 06/04/2017 Ears/Nose/Throat/Neck sinus congestion 06/04/2017 Ears/Nose/Throat/Neck sore throat 06/04/2017 Cardiovascular No chest pain/pressure 06/04/2017 Cardiovascular No dyspnea 06/04/2017 Respiratory No cough Respiratory No productive sputum 06/04/2017 Gastrointestinal abdominal pain 06/04/2017 Gastrointestinal No constipation 06/04/2017 Gastrointestinal No diarrhea 06/04/2017 Genitourinary/Nephrology No dysuria 06/04/2017 Musculoskeletal No joint complaint 06/04/2017 Dermatologic No rash Neurologic No alteration of consciousness 06/04/2017 Psychiatric anxiety 05/14 Psychiatric depression 0 06/04/2017 Endocrine weakness 06/04 Constitutional recent illness 04/24/2017 Constitutional No anorexia 04/24/2017 Constitutional No night sweats 04/24/2017 Constitutional No chills 04/24/2017 Constitutional diaphoresis 04/24/2017 Constitutional fatigue 0 04/24/2017 Constitutional No fever 04/24/2017 Constitutional insomnia 04/24/2017 Constitutional No malaise 04/24/2017 Constitutional No weight loss 04/24/2017 Constitutional No weight gain 04/24/2017 Eyes blindness 8 Ears/Nose/Throat/Neck dizziness 04/24/2017 Ears/Nose/Throat/Neck headache 04/24/2017 Eyes cataract 04/24/2017 Ears/Nose/Throat/Neck No nasal discharge 04/24/2017 Ears/Nose/Throat/Neck nasal allergies 04/24/2017 Cardiovascular No chest pain/pressure 04/24/2017 Cardiovascular dyspnea 0 04/24/2017 Respiratory No cough Genitourinary/Nephrology No dysuria 04/24/2017 Gastrointestinal abdominal pain 04/24/2017 Musculoskeletal joint complaint 04/24/2017 Dermatologic pigmentation change 04/24/2017 Neurologic No alteration of consciousness 04/24/2017 Psychiatric anxiety 0304/2017 Psychiatric depression 0 04/24/2017 Neurologic No memory loss 04/24/2017 Endocrine No dry or coarse skin 04/24/2017 Hematologic/Lymphatic No abnormal ec chymoses 04/24/2017 Hematologic/Lymphatic abnormal bleed ing and bruising 04/24/2017 Physical Exam Exam Name System Name It em Name Status Result Effective Dates Notes Full Exam - ENT Constitutional general appearance Overall: well nourished 05/30/2018 None Full Exam - ENT Constitutional general appearance Overall: well developed 05/30/2018 None Full Exam - ENT Constitutional general appearance Overall: in no acute distress 05/30/2018 None Full Exam - ENT Ears/Nose/Throat otoscopic exam Overall: external auditory canals normal 05/30/2018 None Full Exam - ENT Ears/Nose/Throat otoscopic exam Left tympanic membrane: air-fluid le [place] 05/30/2018 None Full Exam - ENT Ears/Nose/Throat otoscopic exam Right tympanic membrane: air-fluid level 05/30/2018 None Full Exam - ENT Ears/Nose/Throat lips/teeth/gingiva Overall: benign lips 05/30/2018 None Full Exam - ENT Ears/Nose/Throat oropharynx Overall: oral mucosa clear 05/30/2018 None Full Exam - ENT Ears/Nose/Throat oropharynx Posterior Pharynx: clear post nasal drainage 05/30/2018 None Full Exam - ENT Ears/Nose/Throat oropharynx Posterior Pharynx: erythema 05/30/2018 None Full Exam - ENT Respiratory inspection Overall: no retractions 05/30/2018 None Full Exam - ENT Respiratory inspection Overall: normal rate None Full Exam - ENT Respiratory auscultation Overall: breath sounds clear bilater ally 05/30/2018 None Full Exam - ENT Cardiovascular auscultation of heart Rate: normal rate 05/30/2018 None Full Exam - ENT Cardiovascular auscultation of heart Rhythm: regular rhythm 05/30/2018 None Full Exam - ENT Lymphatic palpation of lymph nodes Overall: anterior cervical chain benign 05/30/2018 None Full Exam - ENT Lymphatic palpation of lymph nodes Overall: posterior cervical chain benign 05/30/2018 None Full Exam - ENT Neurologic mood and affect Overall: normal mood 05/30/2018 None Full Exam - ENT Neurologic mood and affect Overall: normal affect 05/30/2018 None Full Exam - ENT Neurologic orientation Overall: oriented to person, place a nd time 05/30/2018 None Full Exam - General 1994 Constitutional general appearance Overall: well developed 05/23/2018 None Full Exam - General 1994 Constitutional general appearance Overall: in no acute distress 05/23/2018 None Full Exam - General 1994 Constitutional general appearance Overall: well nourished 05/23/2018 None Full Exam - General 1994 Eyes conjunctiva/eyelids Overall: conjunctiva clear 05/23/2018 None Full Exam - General 1994 Eyes conjunctiva/eyelids Overall: cornea clear 05/23/2018 None Full Exam - General 1994 Eyes conjunctiva/eyelids Overall: eyelids normal 05/23/2018 None Full Exam - General 1994 Ears/Nose/Throat lips/teeth/gingiva Overall: benign lips 05/23/2018 None Full Exam - General 1994 Ears/Nose/Throat oral cavity/pharynx/larynx Overall: oral mucosa clear 05/23/2018 None Full Exam - General 1994 Ears/Nose/Throat oral cavity/pharynx/larynx Overall: oropharyngeal mucosa clear 05/23/2018 None Full Exam - General 1994 Respiratory auscultation Overall: breath sounds clear bilaterally 05/23/2018 None Full Exam - General 1994 Respiratory respiratory effort/rhythm Overall: no retractions 05/23/2018 None Full Exam - General 1994 Respiratory respiratory effort/rhythm Overall: normal rate 05/23/2018 None Full Exam - General 1994 Cardiovascular auscultation of heart Overall: regular rate 05/23/2018 None Full Exam - General 1994 Cardiovascular auscultation of heart Overall: normal heart sounds 05/23/2018 None Full Exam - General 1994 Musculoskeletal head and neck Overall: head atraumatic 05/23/2018 None Full Exam - General 1994 Neurologic cranial nerves Overall: crainial nerves 2 - 12 grossly intact 05/23/2018 None Full Exam - General 1994 Psychiatric orientation/consciousness Overall: oriented to person, place and time 05/23/2018 None Full Exam - General 1994 Psychiatric mood and affect Overall: normal mood and affect 05/23/2018 None Full Exam - General 1994 Psychiatric appearance Overall: well-groomed, good eye contact 05/23/2018 None Full Exam - General 1994 Cardiovascular extremities Edema present: pitting 05/23/2018 None Full Exam - General 1994 Cardiovascular extremities Edema present: severity 1+ - 4+: 3+ 05/23/2018 None Full Exam - General 1994 Cardiovascular extremities Edema present: to knees 05/23/2018 None Full Exam - General 1994 Cardiovascular extremities Edema present: bilateral 05/23/2018 None Full Exam - General 1994 Constitutional general appearance Overall: well developed 05/06/2018 None Full Exam - General 1994 Constitutional general appearance Overall: in no acute distress 05/06/2018 None Full Exam - General 1994 Constitutional general appearance Overall: well nourished 05/06/2018 None Full Exam - General 1994 Eyes conjunctiva/eyelids Overall: conjunctiva clear 05/06/2018 None Full Exam - General 1994 Eyes pupils and irises Overall: pupils equal, round, reactive to light and accomodation 05/06/2018 None Full Exam - General 1994 Ears/Nose/Throat otoscopic exam Overall: external auditory canals clear 05/06/2018 None Full Exam - General 1994 Ears/Nose/Throat otoscopic exam Overall: tympanic membranes clear 05/06/2018 None Full Exam - General 1994 Respiratory auscultation Overall: breath sounds clear bilaterally 05/06/2018 None Full Exam - General 1994 Respiratory respiratory effort/rhythm Overall: no retractions 05/06/2018 None Full Exam - General 1994 Respiratory respiratory effort/rhythm Overall: normal rate 05/06/2018 None Full Exam - General 1994 Cardiovascular auscultation of heart Overall: regular rate 05/06/2018 None Full Exam - General 1994 Cardiovascular auscultation of heart Overall: normal heart sounds 05/06/2018 None Full Exam - General 1994 Abdomen abdominal exam Overall: normal bowel sounds 05/06/2018 None Full Exam - General 1994 Lymphatic neck nodes Overall: anterior cervical chain benign 05/06/2018 None Full Exam - General 1994 Lymphatic neck nodes Overall: posterior cervical chain benign 05/06/2018 None Full Exam - General 1994 Musculoskeletal spine, ribs and pelvis Overall: good posture 05/06/2018 with thin extremities Full Exam - General 1994 Musculoskeletal head and neck Overall: head atraumatic 05/06/2018 None Full Exam - General 1994 Integument inspection of skin Overall: few scattered moles, no gross abnormalities 05/06/2018 None Full Exam - General 1994 Psychiatric orientation/consciousness Overall: oriented to person, place and time 05/06/2018 None Full Exam - Cardiology Musculoskeletal back Spine: tender @ lumbar spine 05/06/2018 and left hip, decreased R OM left shoulder due to pain Full Exam - General 1994 Constitutional general appearance Overall: well developed 04/30/2018 None Full Exam - General 1994 Constitutional general appearance Overall: in no acute distress 04/30/2018 None Full Exam - General 1994 Constitutional general appearance Overall: well nourished 04/30/2018 None Full Exam - General 1994 Eyes conjunctiva/eyelids Overall: conjunctiva clear 04/30/2018 None Full Exam - General 1994 Eyes pupils and irises Overall: pupils equal, round, reactive to light and accomodation 04/30/2018 None Full Exam - General 1994 Ears/Nose/Throat otoscopic exam Overall: external auditory canals clear 04/30/2018 None Full Exam - General 1994 Ears/Nose/Throat otoscopic exam Overall: tympanic membranes clear 04/30/2018 None Full Exam - General 1994 Respiratory auscultation Overall: breath sounds clear bilaterally 04/30/2018 None Full Exam - General 1994 Respiratory respiratory effort/rhythm Overall: no retractions 04/30/2018 None Full Exam - General 1994 Respiratory respiratory effort/rhythm Overall: normal rate 04/30/2018 None Full Exam - General 1994 Cardiovascular auscultation of heart Overall: regular rate 04/30/2018 None Full Exam - General 1994 Cardiovascular auscultation of heart Overall: normal heart sounds 04/30/2018 None Full Exam - General 1994 Abdomen abdominal exam Overall: normal bowel sounds 04/30/2018 None Full Exam - Cardiology Musculoskeletal back Spine: tender @ lumbar spine 04/30/2018 and left hip, decreased R OM left shoulder due to pain Full Exam - General 1994 Musculoskeletal spine, ribs and pelvis Overall: good posture 04/30/2018 with thin extremities Full Exam - General 1994 Psychiatric orientation/consciousness Overall: oriented to person, place and time 04/30/2018 None Full Exam - General 1994 Ears/Nose/Throat lips/teeth/gingiva Overall: benign lips 04/30/2018 None Full Exam - General 1994 Ears/Nose/Throat oral cavity/pharynx/larynx Overall: oral mucosa clear 04/30/2018 None Full Exam - General 1994 Musculoskeletal head and neck Head: tenderness along skull 04/30/2018 None Full Exam - General 1994 Neurologic cranial nerves Overall: crainial nerves 2 - 12 grossly intact 04/30/2018 None Full Exam - General 1994 Psychiatric mood and affect Mood: depressed 04/30/2018 None Full Exam - General 1994 Psychiatric mood and affect Mood: anxious 04/30/2018 None Full Exam - General 1994 Psychiatric mood and affect Mood: labile mood 04/30/2018 None Full Exam - General 1994 Musculoskeletal spine, ribs and pelvis Palpation: tender at greater trochanter 04/30/2018 None Full Exam - ENT Constitutional general appearance Overall: well nourished 03/19/2018 None Full Exam - ENT Constitutional general appearance Overall: well developed 03/19/2018 None Full Exam - ENT Constitutional general appearance Overall: in no acute distress 03/19/2018 None Full Exam - ENT Neurologic orientation Overall: oriented to person, place a nd time 03/19/2018 None Full Exam - ENT Integument inspection of skin Overall: no rash, lesions 03/19/2018 None Full Exam - ENT Lymphatic palpation of lymph nodes Overall: anterior cervical chain benign 03/19/2018 None Full Exam - ENT Lymphatic palpation of lymph nodes Overall: posterior cervical chain benign 03/19/2018 None Full Exam - ENT Cardiovascular auscultation of heart Overall: regular rate 03/19/2018 None Full Exam - ENT Cardiovascular auscultation of heart Overall: normal heart sounds 03/19/2018 None Full Exam - ENT Respiratory auscultation Overall: breath sounds clear bilater ally 03/19/2018 None Full Exam - ENT Respiratory inspection Overall: no retractions 03/19/2018 None Full Exam - ENT Respiratory inspection Overall: normal rate 06/2018 None Full Exam - ENT Face and Head palpation Left maxillary sinus: tender 03/19/2018 None Full Exam - ENT Face and Head palpation Right maxillary sinus: tender 03/19/2018 None Full Exam - ENT Face and Head palpation Right frontal sinus: tender 03/19/2018 None Full Exam - ENT Face and Head palpation Left frontal sinus: tender 03/19/2018 None Full Exam - ENT Ears/Nose/Throat otoscopic exam Overall: external auditory canals normal 03/19/2018 None Full Exam - ENT Ears/Nose/Throat otoscopic exam Left tympanic membrane: air-fluid le [place] 03/19/2018 None Full Exam - ENT Ears/Nose/Throat otoscopic exam Right tympanic membrane: air-fluid level 03/19/2018 None Full Exam - ENT Ears/Nose/Throat oropharynx Overall: oral mucosa clear 03/19/2018 None Full Exam - General 1994 Constitutional general appearance Overall: well developed 02/01/2018 None Full Exam - General 1994 Constitutional general appearance Overall: in no acute distress 02/01/2018 None Full Exam - General 1994 Constitutional general appearance Overall: well nourished 02/01/2018 None Full Exam - General 1994 Eyes conjunctiva/eyelids Overall: conjunctiva clear 02/01/2018 None Full Exam - General 1994 Eyes pupils and irises Overall: pupils equal, round, reactive to light and accomodation 02/01/2018 None Full Exam - General 1994 Ears/Nose/Throat otoscopic exam Overall: external auditory canals clear 02/01/2018 None Full Exam - General 1994 Ears/Nose/Throat otoscopic exam Overall: tympanic membranes clear 02/01/2018 None Full Exam - General 1994 Respiratory auscultation Overall: breath sounds clear bilaterally 02/01/2018 None Full Exam - General 1994 Respiratory respiratory effort/rhythm Overall: no retractions 02/01/2018 None Full Exam - General 1994 Respiratory respiratory effort/rhythm Overall: normal rate 02/01/2018 None Full Exam - General 1994 Cardiovascular auscultation of heart Overall: regular rate 02/01/2018 None Full Exam - General 1994 Cardiovascular auscultation of heart Overall: normal heart sounds 02/01/2018 None Full Exam - General 1994 Abdomen abdominal exam Overall: normal bowel sounds 02/01/2018 None Full Exam - General 1994 Lymphatic neck nodes Overall: anterior cervical chain benign 02/01/2018 None Full Exam - General 1994 Lymphatic neck nodes Overall: posterior cervical chain benign 02/01/2018 None Full Exam - General 1994 Musculoskeletal spine, ribs and pelvis Overall: good posture 02/01/2018 with thin extremities Full Exam - General 1994 Musculoskeletal head and neck Overall: head atraumatic 02/01/2018 None Full Exam - General 1994 Integument inspection of skin Overall: few scattered moles, no gross abnormalities 02/01/2018 None Full Exam - General 1994 Psychiatric orientation/consciousness Overall: oriented to person, place and time 02/01/2018 None Full Exam - Cardiology Musculoskeletal back Overall: spine benign 02/01/2018 tender left SI joint Full Exam - General 1994 Constitutional general appearance Overall: well developed 12/13/2017 None Full Exam - General 1994 Constitutional general appearance Overall: in no acute distress 12/13/2017 None Full Exam - General 1994 Constitutional general appearance Overall: well nourished 12/13/2017 None Full Exam - General 1994 Eyes conjunctiva/eyelids Overall: conjunctiva clear 12/13/2017 None Full Exam - General 1994 Eyes pupils and irises Overall: pupils equal, round, reactive to light and accomodation 12/13/2017 None Full Exam - General 1994 Ears/Nose/Throat otoscopic exam Overall: external auditory canals clear 12/13/2017 None Full Exam - General 1994 Ears/Nose/Throat otoscopic exam Overall: tympanic membranes clear 12/13/2017 None Full Exam - General 1994 Respiratory auscultation Overall: breath sounds clear bilaterally 12/13/2017 None Full Exam - General 1994 Respiratory respiratory effort/rhythm Overall: no retractions 12/13/2017 None Full Exam - General 1994 Respiratory respiratory effort/rhythm Overall: normal rate 12/13/2017 None Full Exam - General 1994 Cardiovascular auscultation of heart Overall: regular rate 12/13/2017 None Full Exam - General 1994 Cardiovascular auscultation of heart Overall: normal heart sounds 12/13/2017 None Full Exam - General 1994 Lymphatic neck nodes Overall: anterior cervical chain benign 12/13/2017 None Full Exam - General 1994 Lymphatic neck nodes Overall: posterior cervical chain benign 12/13/2017 None Full Exam - General 1994 Musculoskeletal head and neck Overall: head atraumatic 12/13/2017 None Full Exam - General 1994 Integument inspection of skin Overall: few scattered moles, no gross abnormalities 12/13/2017 None Full Exam - General 1994 Psychiatric orientation/consciousness Overall: oriented to person, place and time 12/13/2017 None Full Exam - General 1994 Abdomen abdominal exam Overall: normal bowel sounds 12/13/2017 None Full Exam - General 1994 Abdomen abdominal exam Lower quadrant: non-tender to palpat ion 12/13/2017 stoma in right lower abdo men with mucosal surface with small area of skin tissue from 7 to 9 o'clock that appears to have epithelialized Full Exam - General 1994 Musculoskeletal spine, ribs and pelvis Overall: good posture 12/13/2017 with thin extremities Full Exam - General 1994 Constitutional general appearance Overall: well developed 09/18/2017 None Full Exam - General 1994 Constitutional general appearance Overall: in no acute distress 09/18/2017 None Full Exam - General 1994 Constitutional general appearance Overall: well nourished 09/18/2017 None Full Exam - General 1994 Eyes conjunctiva/eyelids Overall: conjunctiva clear 09/18/2017 None Full Exam - General 1994 Eyes pupils and irises Overall: pupils equal, round, reactive to light and accomodation 09/18/2017 None Full Exam - General 1994 Ears/Nose/Throat otoscopic exam Overall: external auditory canals clear 09/18/2017 None Full Exam - General 1994 Ears/Nose/Throat otoscopic exam Overall: tympanic membranes clear 09/18/2017 None Full Exam - General 1994 Respiratory auscultation Overall: breath sounds clear bilaterally 09/18/2017 None Full Exam - General 1994 Respiratory respiratory effort/rhythm Overall: no retractions 09/18/2017 None Full Exam - General 1994 Respiratory respiratory effort/rhythm Overall: normal rate 09/18/2017 None Full Exam - General 1994 Cardiovascular auscultation of heart Overall: regular rate 09/18/2017 None Full Exam - General 1994 Cardiovascular auscultation of heart Overall: normal heart sounds 09/18/2017 None Full Exam - General 1994 Lymphatic neck nodes Overall: anterior cervical chain benign 09/18/2017 None Full Exam - General 1994 Lymphatic neck nodes Overall: posterior cervical chain benign 09/18/2017 None Full Exam - General 1994 Musculoskeletal head and neck Overall: head atraumatic 09/18/2017 None Full Exam - General 1994 Integument inspection of skin Overall: few scattered moles, no gross abnormalities 09/18/2017 None Full Exam - General 1994 Psychiatric orientation/consciousness Overall: oriented to person, place and time 09/18/2017 None Full Exam - General 1994 Constitutional general appearance Overall: well developed 08/23/2017 None Full Exam - General 1994 Constitutional general appearance Overall: in no acute distress 08/23/2017 None Full Exam - General 1994 Constitutional general appearance Overall: well nourished 08/23/2017 None Full Exam - General 1994 Eyes conjunctiva/eyelids Overall: conjunctiva clear 08/23/2017 None Full Exam - General 1994 Eyes pupils and irises Overall: pupils equal, round, reactive to light and accomodation 08/23/2017 None Full Exam - General 1994 Ears/Nose/Throat otoscopic exam Overall: external auditory canals clear 08/23/2017 None Full Exam - General 1994 Ears/Nose/Throat otoscopic exam Overall: tympanic membranes clear 08/23/2017 None Full Exam - General 1994 Respiratory auscultation Overall: breath sounds clear bilaterally 08/23/2017 None Full Exam - General 1994 Respiratory respiratory effort/rhythm Overall: no retractions 08/23/2017 None Full Exam - General 1994 Respiratory respiratory effort/rhythm Overall: normal rate 08/23/2017 None Full Exam - General 1994 Cardiovascular auscultation of heart Overall: regular rate 08/23/2017 None Full Exam - General 1994 Cardiovascular auscultation of heart Overall: normal heart sounds 08/23/2017 None Full Exam - General 1994 Abdomen abdominal exam Overall: normal bowel sounds 08/23/2017 None Full Exam - General 1994 Abdomen abdominal exam Contour: flat 08/23/2017 stoma RLQ Full Exam - General 1994 Abdomen abdominal exam Upper quadrant: tender to palpation 08/23/2017 None Full Exam - General 1994 Abdomen abdominal exam Lower quadrant: tender to palpation 08/23/2017 None Full Exam - General 1994 Lymphatic neck nodes Overall: anterior cervical chain benign 08/23/2017 None Full Exam - General 1994 Lymphatic neck nodes Overall: posterior cervical chain benign 08/23/2017 None Full Exam - General 1994 Musculoskeletal head and neck Overall: head atraumatic 08/23/2017 None Full Exam - General 1994 Integument inspection of skin Overall: few scattered moles, no gross abnormalities 08/23/2017 None Full Exam - General 1994 Neurologic cranial nerves Overall: crainial nerves 2 - 12 grossly intact 08/23/2017 None Full Exam - General 1994 Psychiatric orientation/consciousness Overall: oriented to person, place and time 08/23/2017 None Full Exam - General 1994 Musculoskeletal gait and station Gait: unable to turn quickly 08/23/2017 None Full Exam - General 1994 Constitutional general appearance Overall: well developed 06/20/2017 None Full Exam - General 1994 Constitutional general appearance Overall: in no acute distress 06/20/2017 None Full Exam - General 1994 Constitutional general appearance Overall: well nourished 06/20/2017 None Full Exam - General 1994 Eyes conjunctiva/eyelids Overall: conjunctiva clear 06/20/2017 None Full Exam - General 1994 Eyes conjunctiva/eyelids Overall: cornea clear 06/20/2017 None Full Exam - General 1994 Eyes conjunctiva/eyelids Overall: eyelids normal 06/20/2017 None Full Exam - General 1994 Ears/Nose/Throat lips/teeth/gingiva Overall: benign lips 06/20/2017 None Full Exam - General 1994 Respiratory respiratory effort/rhythm Overall: normal rate 06/20/2017 None Full Exam - General 1994 Respiratory respiratory effort/rhythm Overall: no retractions 06/20/2017 None Full Exam - General 1994 Musculoskeletal head and neck Overall: head atraumatic 06/20/2017 None Full Exam - General 1994 Neurologic cranial nerves Overall: crainial nerves 2 - 12 grossly intact 06/20/2017 None Full Exam - General 1994 Psychiatric orientation/consciousness Overall: oriented to person, place and time 06/20/2017 None Full Exam - General 1994 Psychiatric mood and affect Overall: normal mood and affect 06/20/2017 None Full Exam - General 1994 Psychiatric appearance Overall: well-groomed, good eye contact 06/20/2017 None Full Exam - General 1994 Constitutional general appearance Overall: well developed 06/11/2017 None Full Exam - General 1994 Constitutional general appearance Overall: in no acute distress 06/11/2017 None Full Exam - General 1994 Constitutional general appearance Overall: well nourished 06/11/2017 None Full Exam - General 1994 Eyes conjunctiva/eyelids Overall: conjunctiva clear 06/11/2017 None Full Exam - General 1994 Eyes pupils and irises Overall: pupils equal, round, reactive to light and accomodation 06/11/2017 None Full Exam - General 1994 Ears/Nose/Throat otoscopic exam Overall: external auditory canals clear 06/11/2017 None Full Exam - General 1994 Ears/Nose/Throat otoscopic exam Overall: tympanic membranes clear 06/11/2017 None Full Exam - General 1994 Respiratory auscultation Overall: breath sounds clear bilaterally 06/11/2017 None Full Exam - General 1994 Respiratory respiratory effort/rhythm Overall: no retractions 06/11/2017 None Full Exam - General 1994 Respiratory respiratory effort/rhythm Overall: normal rate 06/11/2017 None Full Exam - General 1994 Cardiovascular auscultation of heart Overall: regular rate 06/11/2017 None Full Exam - General 1994 Cardiovascular auscultation of heart Overall: normal heart sounds 06/11/2017 None Full Exam - General 1994 Lymphatic neck nodes Overall: anterior cervical chain benign 06/11/2017 None Full Exam - General 1994 Lymphatic neck nodes Overall: posterior cervical chain benign 06/11/2017 None Full Exam - General 1994 Musculoskeletal head and neck Overall: head atraumatic 06/11/2017 None Full Exam - General 1994 Integument inspection of skin Overall: few scattered moles, no gross abnormalities 06/11/2017 None Full Exam - General 1994 Psychiatric orientation/consciousness Overall: oriented to person, place and time 06/11/2017 None Full Exam - General 1994 Constitutional general appearance Overall: well developed 06/04/2017 None Full Exam - General 1994 Constitutional general appearance Overall: in no acute distress 06/04/2017 None Full Exam - General 1994 Constitutional general appearance Overall: well nourished 06/04/2017 None Full Exam - General 1994 Eyes conjunctiva/eyelids Overall: conjunctiva clear 06/04/2017 None Full Exam - General 1994 Eyes pupils and irises Overall: pupils equal, round, reactive to light and accomodation 06/04/2017 None Full Exam - General 1994 Ears/Nose/Throat otoscopic exam Overall: external auditory canals clear 06/04/2017 None Full Exam - General 1994 Ears/Nose/Throat otoscopic exam Overall: tympanic membranes clear 06/04/2017 None Full Exam - General 1994 Neck inspection of neck Overall: normal size 06/04/2017 None Full Exam - General 1994 Respiratory auscultation Overall: breath sounds clear bilaterally 06/04/2017 None Full Exam - General 1994 Respiratory respiratory effort/rhythm Overall: no retractions 06/04/2017 None Full Exam - General 1994 Respiratory respiratory effort/rhythm Overall: normal rate 06/04/2017 None Full Exam - General 1994 Cardiovascular auscultation of heart Overall: regular rate 06/04/2017 None Full Exam - General 1994 Cardiovascular auscultation of heart Overall: normal heart sounds 06/04/2017 None Full Exam - General 1994 Abdomen abdominal exam Overall: normal bowel sounds 06/04/2017 None Full Exam - General 1994 Abdomen abdominal exam Contour: flat 06/04/2017 stoma RLQ Full Exam - General 1994 Abdomen abdominal exam Upper quadrant: tender to palpation 06/04/2017 None Full Exam - General 1994 Abdomen abdominal exam Lower quadrant: tender to palpation 06/04/2017 None Full Exam - General 1994 Lymphatic neck nodes Overall: anterior cervical chain benign 06/04/2017 None Full Exam - General 1994 Lymphatic neck nodes Overall: posterior cervical chain benign 06/04/2017 None Full Exam - General 1994 Musculoskeletal head and neck Overall: head atraumatic 06/04/2017 None Full Exam - General 1994 Integument inspection of skin Overall: few scattered moles, no gross abnormalities 06/04/2017 None Full Exam - General 1994 Neurologic cranial nerves Overall: crainial nerves 2 - 12 grossly intact 06/04/2017 None Full Exam - General 1994 Psychiatric orientation/consciousness Overall: oriented to person, place and time 06/04/2017 None Full Exam - General 1994 Ears/Nose/Throat internal nose Sinus tenderness: left maxillary 06/04/2017 None Full Exam - General 1994 Ears/Nose/Throat internal nose Sinus tenderness: right maxillary 06/04/2017 None Full Exam - General 1994 Constitutional general appearance Overall: well developed 04/24/2017 None Full Exam - General 1994 Constitutional general appearance Overall: in no acute distress 04/24/2017 None Full Exam - General 1994 Constitutional general appearance Overall: well nourished 04/24/2017 None Full Exam - General 1994 Eyes conjunctiva/eyelids Overall: conjunctiva clear 04/24/2017 None Full Exam - General 1994 Eyes pupils and irises Overall: pupils equal, round, reactive to light and accomodation 04/24/2017 None Full Exam - General 1994 Ears/Nose/Throat otoscopic exam Overall: tympanic membranes clear 04/24/2017 None Full Exam - General 1994 Ears/Nose/Throat otoscopic exam Overall: external auditory canals clear 04/24/2017 None Full Exam - General 1994 Ears/Nose/Throat oral cavity/pharynx/larynx Overall: oral mucosa clear 04/24/2017 None Full Exam - General 1994 Respiratory respiratory effort/rhythm Overall: normal rate 04/24/2017 None Full Exam - General 1994 Respiratory respiratory effort/rhythm Overall: no retractions 04/24/2017 None Full Exam - General 1994 Respiratory auscultation Overall: breath sounds clear bilaterally 04/24/2017 None Full Exam - General 1994 Cardiovascular auscultation of heart Overall: regular rate 04/24/2017 None Full Exam - General 1994 Cardiovascular auscultation of heart Overall: normal heart sounds 04/24/2017 None Full Exam - General 1994 Abdomen abdominal exam Overall: normal bowel sounds 04/24/2017 None Full Exam - General 1994 Abdomen abdominal exam Upper quadrant: tender to palpation 04/24/2017 None Full Exam - General 1994 Abdomen abdominal exam Lower quadrant: tender to palpation 04/24/2017 None Full Exam - General 1994 Abdomen abdominal exam Contour: flat 04/24/2017 stoma RLQ Full Exam - General 1994 Lymphatic neck nodes Overall: anterior cervical chain benign 04/24/2017 None Full Exam - General 1994 Lymphatic neck nodes Overall: posterior cervical chain benign 04/24/2017 None Full Exam - General 1994 Musculoskeletal head and neck Overall: head atraumatic 04/24/2017 None Full Exam - General 1994 Integument inspection of skin Overall: few scattered moles, no gross abnormalities 04/24/2017 None Full Exam - General 1994 Neurologic cranial nerves Overall: crainial nerves 2 - 12 grossly intact 04/24/2017 None Full Exam - General 1994 Psychiatric orientation/consciousness Overall: oriented to person, place and time 04/24/2017 None Full Exam - General 1994 Neck inspection of neck Overall: normal size 04/24/2017 None Procedures Procedure Codes Date URINALYSIS NONAUTO W /O SCOPE CPT-4: 17727 05/06/2018 GLUC MONITOR CONT PH YS I&R CPT-4: 26771 09/18/2017 GLUCOSE MONITORING CONT CPT-4: 07194 06/20/2017 Vital Signs Date Vital 05/30/2018 Blood Pressure 1: 144/64 Code: 8480-6 BMI: 22.4 Code: 71400-9 Heart Rate 1: 89 bpm Height: 5'6" SpO2: 98% Temperature: 37.2 (C ) / 98.9 (F) Weight: 139 lbs 05/23/2018 Blood Pressure 1: 146/66 Code: 8480-6 BMI: 22.4 Code: 89195-8 Heart Rate 1: 85 bpm Height: 5'6" SpO2: 97% Weight: 139 lbs 05/06/2018 Blood Pressure 1: 128/86 Code: 8480-6 BMI: 20.8 Code: 41442-6 Heart Rate 1: 96 bpm Height: 5'6" SpO2: 96% Weight: 129 lbs 04/30/2018 Blood Pressure 1: 124/66 Code: 8480-6 Heart Rate 1: 87 bpm Height: 5'6" SpO2: 98% 03/19/2018 Blood Pressure 1: 142/84 Code: 8480-6 BMI: 20.5 Code: 11433-5 Heart Rate 1: 88 bpm Height: 5'6" SpO2: 98% Temperature: 36.6 (C ) / 97.9 (F) Weight: 129 lbs 02/01/2018 Blood Pressure 1: 110/52 Code: 8480-6 BMI: 19.9 Code: 22217-1 Height: 5'6" Weight: 125 lbs 12/13/2017 Blood Pressure 1: 140/80 Code: 8480-6 BMI: 19.9 Code: 01582-0 Heart Rate 1: 72 bpm Height: 5'6" SpO2: 95% Weight: 125 lbs 09/18/2017 Blood Pressure 1: 126/82 Code: 8480-6 BMI: 20.0 Code: 13447-0 Heart Rate 1: 103 bpm Height: 5'6" SpO2: 98% Weight: 126 lbs 08/23/2017 Blood Pressure 1: 118/62 Code: 8480-6 Heart Rate 1: 110 bpm Height: 5'6" SpO2: 95% Temperature: 37.1 (C ) / 98.7 (F) 06/20/2017 Heigh t: Weight: 06/11/2017 Blood Pressure 1: 142/76 Code: 8480-6 BMI: 21.3 Code: 50706-3 Heart Rate 1: 102 bpm Height: 5'6" SpO2: 97% Weight: 134 lbs 06/04/2017 Blood Pressure 1: 160/84 Code: 8480-6 BMI: 20.8 Code: 63525-3 Heart Rate 1: 87 bpm Height: 5'6" SpO2: 97% Weight: 131 lbs 04/24/2017 Blood Pressure 1: 132/80 Code: 8480-6 BMI: 20.8 Code: 47139-4 Heart Rate 1: 84 bpm Height: 5'6" SpO2: 99% Weight: 131 lbs Functional Status No Functional Status data History of Present Illness Symptom Name Status Resu lt Effective Date Notes Location frontal sinuses 05/30/2018 None Quality constant 05/30/2018 None Quality fullness 05/30/2018 None Quality pressure 05/30/2018 None Onset and Resolution s udden in onset 05/30/2018 None Onset of Symptom 1 wee ks ago 05/30/2018 None Frequency of Episodes daily 05/30/2018 None Location diffusely 05/30/2018 None Quality aching 05/30/2018 None Quality constant 05/30/2018 None Onset and Resolution s udden in onset 05/30/2018 None Onset of Symptom 12 we eks ago 05/30/2018 None Frequency of Episodes daily 05/30/2018 None Quality imbalance 05/23/2018 None Quality lightheadedness 05/23/2018 None Quality loss of balance 05/23/2018 None Quality sense of motion 05/23/2018 None Onset and Resolution o ngoing 05/23/2018 None Onset of Symptom 10 da ys ago 05/23/2018 None Quality acute 05/23/2018 None Onset and Resolution o ngoing 05/23/2018 None Pertinent Findings diz ziness 05/23/2018 None Pertinent Findings Den ies seizure 05/23/2018 None Onset and Resolution s udden in onset 05/23/2018 None Onset of Symptom 3 day s ago 05/23/2018 None Pertinent Findings lig htheadedness 05/23/2018 None Pertinent Findings gandara b pain / tenderness 05/23/2018 None Location in the LUQ 05/06/2018 None Radiating the back 05/06/2018 None Onset of Symptom 1 wee ks ago 05/06/2018 None Pertinent Findings gera k pain 05/06/2018 None Pertinent Findings Den ies fever 05/06/2018 None Quality intermittent 05/06/2018 None Pertinent Findings sle ep disturbance 05/06/2018 None Location on the left 05/06/2018 None Location on the right 05/06/2018 None Quality intermittent 05/06/2018 None Pertinent Findings dec reased range of motion 05/06/2018 None Pertinent Findings perez n with movement 05/06/2018 None Quality chronic 05/06/2018 None Onset and Resolution o ngoing 05/06/2018 None Limitation on Activities does not limit activities 05/06/2018 None Frequency of Episodes unchanged 05/06/2018 None Triggers no known asso ciated factors 05/06/2018 None Onset and Resolution o ngoing 04/30/2018 None Quality imbalance 04/30/2018 None Quality lightheadedness 04/30/2018 None Quality loss of balance 04/30/2018 None Quality sense of motion 04/30/2018 None Onset of Symptom 10 da ys ago 04/30/2018 None Quality acute 04/30/2018 None Onset and Resolution o ngoing 04/30/2018 None Pertinent Findings diz ziness 04/30/2018 None Pertinent Findings Den ies seizure 04/30/2018 None Quality acute 03/19/2018 None Pertinent Findings Den ies fever 03/19/2018 None Pertinent Findings cough 03/19/2018 None Pertinent Findings tyson al congestion 03/19/2018 None Location both ears 03/19/2018 -worse in the left ear Quality acute 03/19/2018 None Onset and Resolution D enies sudden in onset 03/19/2018 None Onset of Symptom 1 wee ks ago 03/19/2018 None Onset and Resolution D enies sudden in onset 03/19/2018 None Onset of Symptom 1 wee ks ago 03/19/2018 None Limitation on Activities does not limit oral intake 03/19/2018 None Location in the right frontal area 02/01/2018 None Quality intermittent 02/01/2018 None Onset and Resolution o ngoing 02/01/2018 None Onset of Symptom 3-4 m onths ago 02/01/2018 None Frequency of Episodes weekly 02/01/2018 None Pertinent Findings Den ies blurred vision 02/01/2018 None Pertinent Findings diz ziness 02/01/2018 None Quality insulin depend ent 02/01/2018 None Quality chronic 02/01/2018 None Alleviating Factors in sulin 02/01/2018 None Exacerbating Factors d iet 02/01/2018 None Location on the left 02/01/2018 None Onset of Symptom 1 wee ks ago 02/01/2018 None Radiating the left but tock 02/01/2018 None Onset and Resolution o ngoing 02/01/2018 None Limitation on Activities moderately limits activities 02/01/2018 None Severity mild 02/01/2018 None Extent of Symptoms wea k left lower extremity 02/01/2018 None Frequency of Episodes on and off 02/01/2018 None headache Location in the right frontal area 12/13/2017 None headache Quality intermi ttent 12/13/2017 None headache Onset and Resolution ongoing 12/13/2017 None headache Onset of Symptom 3-4 months ago 12/13/2017 None headache Frequency of Episodes weekly 12/13/2017 None headache Pertinent Findings Denies blurred vision 12/13/2017 None headache Pertinent Findings dizziness 12/13/2017 None diabetes mellitus Quality insulin dependent 12/13/2017 None diabetes mellitus Quality chronic 12/13/2017 None diabetes mellitus Alleviating Factors insulin 12/13/2017 None diabetes mellitus Exacerbating Factors diet 12/13/2017 None diabetes mellitus Quality chronic 09/18/2017 None diabetes mellitus Quality insulin dependent 09/18/2017 None diabetes mellitus Exacerbating Factors diet 09/18/2017 None diabetes mellitus Alleviating Factors medication 09/18/2017 None diabetes mellitus Alleviating Factors insulin 09/18/2017 None diabetes mellitus Glucose monitoring twice daily 09/18/2017 None diabetes mellitus Test results Pt checking blood glucose readings, did not bring results to clinic 09/18/2017 she reports that in the morning her FSBS is running in the 130's, at bedtime her FSBS are running in the 120's hypertension Quality chr onic 09/18/2017 None hypertension Quality mike rosalio hypertension 09/18/2017 None hypertension Onset and Resolution ongoing 09/18/2017 None hypertension Onset of Symptom during adulthood 09/18/2017 None hypertension Pertinent Findings dizziness 09/18/2017 --improved gait abnormality Quality intermittent 08/23/2017 None gait abnormality Onset and Resolution sudden in onset 08/23/2017 None gait abnormality Onset of Symptom 1 weeks ago 08/23/2017 None gait abnormality Pertinent Findings Denies muscle tenderness 08/23/2017 None vertigo Quality intermit tent 08/23/2017 None vertigo Quality worsening 08/23/2017 None vertigo Onset and Resolution ongoing 08/23/2017 None vertigo Onset of Symptom 1-2 weeks ago 08/23/2017 None vertigo Pertinent Findings dizziness 08/23/2017 None diabetes mellitus Onset of Symptom onset as an adult 06/20/2017 None diabetes mellitus Quality worsening 06/20/2017 None diabetes mellitus Significant Medications insulin 06/20/2017 None diabetes mellitus Pertinent Findings dizziness 06/20/2017 None diabetes mellitus Quality worsening 06/11/2017 None diabetes mellitus Significant Medications insulin 06/11/2017 None diabetes mellitus Pertinent Findings dizziness 06/11/2017 None diabetes mellitus Onset of Symptom onset as an adult 06/11/2017 None diabetes mellitus Quality worsening 06/04/2017 None sore throat Location dif fusely 06/04/2017 None sore throat Quality achi ng 06/04/2017 None sore throat Quality cons tant 06/04/2017 None sore throat Quality scra tchy 06/04/2017 None sore throat Onset and Resolution sudden in onset 06/04/2017 None sore throat Onset of Symptom 10 days ago 06/04/2017 None sore throat Frequency of Episodes daily 06/04/2017 None headache Location diffus salma 06/04/2017 None headache Quality aching 06/04/2017 None headache Quality constant 06/04/2017 None headache Quality pressure 06/04/2017 None headache Onset and Resolution sudden in onset 06/04/2017 None headache Onset of Symptom 10 days ago 06/04/2017 None diabetes mellitus Test results Pt checking blood glucose readings, did not bring results to clinic 06/04/2017 None diabetes mellitus Blood glucose levels greater than 120 06/04/2017 None diabetes mellitus Significant Medications insulin 06/04/2017 None diabetes mellitus Exercise no exercise 06/04/2017 None diabetes mellitus Onset of Symptom onset as an adult 06/04/2017 None diabetes mellitus Pertinent Findings dizziness 06/04/2017 None diabetes mellitus Quality insulin dependent 04/24/2017 None diabetes mellitus Test results Pt checking blood glucose readings, did not bring results to clinic 04/24/2017 None diabetes mellitus Glucose monitoring occasional glucose testing 04/24/2017 None diabetes mellitus Alleviating Factors medication 04/24/2017 None diabetes mellitus Exacerbating Factors diet 04/24/2017 None abdominal pain Location in the LLQ 04/24/2017 None abdominal pain Quality a cute 04/24/2017 None abdominal pain Quality c onstant 04/24/2017 None abdominal pain Onset and Resolution sudden in onset 04/24/2017 None abdominal pain Onset of Symptom 1.5 weeks ago 04/24/2017 None abdominal pain Triggers no known associated factors 04/24/2017 None abdominal pain Pertinent Findings nausea 04/24/2017 None abdominal pain Pertinent Findings Denies vomiting 04/24/2017 None headache Location in the left temporal region 04/24/2017 None headache Quality acute 04/24/2017 None headache Onset and Resolution sudden in onset 04/24/2017 None headache Onset of Symptom 1 weeks ago 04/24/2017 None headache Quality constant 04/24/2017 None headache Triggers no kno wn associated factors 04/24/2017 None diabetes mellitus Test results HgbA1c level _ 04/24/2017 done about 4 months ago - wasn't sure what the level was at that time. abdominal pain Location in the [facility] 04/24/2017 None abdominal pain Limitation on Activities does not limit activities 04/24/2017 None abdominal pain Frequency of Episodes increasing 04/24/2017 None abdominal pain Length of Episodes 2-3 months 04/24/2017 None abdominal pain Significant Medical C onditions irritable bowel 04/24/2017 ulcerative colitis abdominal pain Pertinent Findings Denies back pain 04/24/2017 None abdominal pain Pertinent Findings Denies bloating 04/24/2017 None diabetes mellitus Blood glucose levels _ 04/24/2017 None diabetes mellitus Significant Medications insulin 04/24/2017 None diabetes mellitus Nutrition regular diet 04/24/2017 None diabetes mellitus Exercise no exercise 04/24/2017 None diabetes mellitus Pertinent Findings Denies dehydration 04/24/2017 None diabetes mellitus Pertinent Findings Denies dizziness 04/24/2017 None diabetes mellitus Pertinent Findings Denies dyspnea 04/24/2017 None diabetes mellitus Onset of Symptom onset as an adult 04/24/2017 None diabetes mellitus Onset of Symptom 3 years ago 04/24/2017 None Advance Directives No Advance Directive data Encounters Encounter Performer Loca tion Codes Date ([id number]) 15609 EST. P ATIENT, LEVEL IV Diagnosis: Acute laryngopharyngitis[ICD10: J06.0] Diagnosis: Other allergic rhinitis[ICD10: J30.89] Diagnosis: Localized edema[ICD10: R60.0] Shae Man MD, [facility] CPT-4: 05876 05/30/2018 96617 EST. PATIENT, LEVEL III Diagnosis: Dysuria[ICD10: R30.0] Diagnosis: Type 2 diabetes mellitus with hyperglycemia[ICD10: E11.65] Diagnosis: Localized edema[ICD10: R60.0] Shae Man MD, [facility] CPT-4: 10181 05/23/2018 [id number] 58422 EST. P ATIENT, LEVEL IV Diagnosis: Low back pain[ICD10: M54.5] Diagnosis: Left upper quadrant pain[ICD10: R10.12] Diagnosis: Pain in left hip[ICD10: M25.552] Diagnosis: Pain in left shoulder[ICD10: M25.512] Diagnosis: Repeated falls[ICD10: R29.6] Diagnosis: Unsteadiness on feet[ICD10: R26.81] Diagnosis: Chronic kidney disease, stage 3 (moderate)[ICD10: N18.3] Ana Man MD, [facility] CPT-4: 94588 05/06/2018 42531 EST. PATIENT, LEVEL III Diagnosis: Low back pain[ICD10: M54.5] Diagnosis: Pain in left hip[ICD10: M25.552] Diagnosis: Repeated falls[ICD10: R29.6] Diagnosis: Unsteadiness on feet[ICD10: R26.81] Diagnosis: Headache[ICD10: R51] Diagnosis: Type 2 diabetes mellitus with hyperglycemia[ICD10: E11.65] Shae Man MD, [facility] CPT-4: 21176 04/30/2018 ([id number] EST. P ATIENT, LEVEL III Diagnosis: Acute recurrent maxillary sinusitis[ICD10: J01.01] Diagnosis: Rash and other nonspecific skin eruption[ICD10: R21] Ana Man MD, [facility] CPT-4: 29631 03/19/2018 [id number] 41002 EST. P ATIENT, LEVEL IV Diagnosis: Acute recurrent maxillary sinusitis[ICD10: J01.01] Diagnosis: Low back pain[ICD10: M54.5] Diagnosis: Unsteadiness on feet[ICD10: R26.81] Diagnosis: Essential (primary) hypertension[ICD10: I10] Ana Man MD, [facility] CPT-4: 06592 02/01/2018 ([id number]) 19787 EST. P ATIENT, LEVEL IV Diagnosis: Type 2 diabetes mellitus with hyperglycemia[ICD10: E11.65] Diagnosis: Essential (primary) hypertension[ICD10: I10] Diagnosis: Other fatigue[ICD10: R53.83] Maude Man MD, [facility] CPT-4: 18380 12/13/2017 ([id number]) 62547 EST. P ATIENT, LEVEL IV Diagnosis: Type 2 diabetes mellitus with hyperglycemia[ICD10: E11.65] Diagnosis: Essential (primary) hypertension[ICD10: I10] Diagnosis: Major depressive disorder, recurrent, in partial remission[ICD10: F33.41] Maude Man MD, [facility] CPT-4: 67451 09/18/2017 ([id number]) 71814 EST. P ATIENT, LEVEL IV Diagnosis: Pouchitis[ICD10: K91.850] Diagnosis: Other fatigue[ICD10: R53.83] Diagnosis: Type 2 diabetes mellitus with hyperglycemia[ICD10: E11.65] Diagnosis: Essential (primary) hypertension[ICD10: I10] Diagnosis: Orthostatic hypotension[ICD10: I95.1] Maude Man MD, [facility] CPT-4: 67123 08/23/2017 ([id number]) Miscellangelesou s no charge Diagnosis: Type 2 diabetes mellitus with hyperglycemia[ICD10: E11.65] Shae Man MD, [facility] CPT-4: 45715 06/25/2017 ([id number]) 52082 EST. P ATIENT, LEVEL IV Diagnosis: Type 2 diabetes mellitus with hyperglycemia[ICD10: E11.65] Maude Man MD, [facility] CPT-4: 15702 06/11/2017 ([id number]) 90982 EST. P ATIENT, LEVEL IV Diagnosis: Type 2 diabetes mellitus with hyperglycemia[ICD10: E11.65] Diagnosis: Essential (primary) hypertension[ICD10: I10] Diagnosis: Acute recurrent maxillary sinusitis[ICD10: J01.01] Ana Man MD, [facility] CPT-4: 83434 06/04/2017 OFFICE VISIT, NEW - LEVEL 4 Diagnosis: Left lower quadrant pain[ICD10: R10.32] Diagnosis: Other ulcerative colitis with unspecified complications[ICD10: K51.819] Diagnosis: Essential (primary) hypertension[ICD10: I10] Diagnosis: Type 2 diabetes mellitus without complications[ICD10: E11.9] Diagnosis: Major depressive disorder, recurrent, in partial remission[ICD10: F33.41] Diagnosis: Melena[ICD10: K92.1] Ana Man MD, [facility] CPT-4: 36631 04/24/2017 Plan of Care Planned Activity Notes C odes Status Date Patient Education: Patient Medication Summary Completed 06/19/2018 Care Plan: Comp Metabolic Pending 06/19/2018 Care Plan: Cbc With Differential Pending 06/19/2018 Visit Plan: URI - Pt advised to inc rease fluids, vitamin C. Discussed natural and expected course of this diagnosis and need to alert me if symptoms do not follow expected course, or if any worse. RX sent to patient's pharmacy. Allergies - chronic - recommended pt to use allergy medication as prescribed. Pt has been counseled as to the appropriate use of the medication. Pt to call if allergy symptoms are not controlled with the medication. If using nasal spray, instructions as follows: Nasal spray- use twice daily, one spray per nostril twice daily, after 30 minutes, rinse out nose with saline spray.. Use opposite hand per nostril to spray in the nasal steroid allergy spray. Edema - pt has been advised to elevate legs to prevent dependent edema, compression has been recommended to help to naturally decrease peripheral edema. Diuretic use has been discussed and pt has been instructed in appropriate use of such medication as necessary to further attempt to reduce peripheral edema. 05/30/2018 Appointment: Shae Guerrero WPtel: [address] [place], [place] [address] (30 min) [facility] 05/30/2018 Patient Education: Patient Medication Summary Completed 05/30/2018 Care Plan: Referral Order SNOMED-CT : [id number] Pending 05/24/2018 Visit Plan: Diabetes Mellitus - Unc ontrolled - increase basaglar to 50 units at night. I have recommended for the patient to have follow up labs prior to the next office visit. The patient has been instructed to co ntinue with current medications as previously directed, continue with regular FSBS monitoring to assure continued control of diabetes. Pt to call for any acute concerns, complaints, or if the blood glucose readings are starting to become less controlled. I have recommended for the patient to follow more strictly to the diabetic diet as discussed in clinic to allow for greater blood glucose control. Edema - pt has been advised to elevate legs to prevent dependent edema, compression has been recommended to help to naturally decrease peripheral edema. Diuretic use has been discussed and pt has been instructed in appropriate use of such medication as necessary to further attempt to reduce peripheral edema. UTI - pt with positive urinalysis - culture sent if appropriate. Antibiotic electronically prescribed to pt's pharmacy of choice. Pt to call if symptoms do not improve. 05/23/2018 Appointment: Shae Guerrero WPtel: [phone] (30 min) Complex 05/23/2018 Patient Education: Patient Medication Summary Completed 05/23/2018 Patient Education: Diabetes Completed 05/23/2018 Care Plan: Urine Culture Pending 05/23/2018 Appointment: Ana Burrell WPtel: [phone] [place] (30 min) Complex 05/20/2018 Care Plan: CT HEAD/BRAIN W/O DYE LOINC : 38191-2 Pending 05/08/2018 Visit Plan: Abdominal pain -UA nega tive-check labs- KUB - monitor symptoms and call if pain does not resolve or if any worse -zofran as needed for nausea Left hip, lower back and left shoulder pain -post multiple fa lls-obtain xrays- will give short supply of tramadol for pain -use tylenol as needed- NO NSAIDs Gait instability-repeated fall -rx for walker provided to help with stability and help prevent falls-appt with Audrey Richter for PT to evaluate and treat CKD-check labs -discussed importance of diabetes control and adequate hydration 05/06/2018 Appointment: Ana Burrell WPtel: [phone] [place] (15 min) Moderate 05/06/2018 Patient Education: Patient Medication Summary Completed 05/06/2018 Patient Education: Back Pain Completed 05/06/2018 Visit Plan: Weakness, gait instabil ity, Left hip, lower back pain - will check x-ray - pt is to consider referral for PT Headache after fall - will send for stat head CT and treat as indicated Diabetes Mellitus - U ncontrolled - per recent FSBS reports. I have recommended for the patient to have follow up labs prior to the next office visit. The patient has been instructed to continue with current medications as previously directed, continue with regular FSBS monitoring to assure continued control of diabetes. Pt to call for any acute concerns, complaints, or if the blood glucose readings are starting to become less controlled. I have recommended for the patient to follow more strictly to the diabetic diet as discussed in clinic to allow for greater blood glucose control. 04/30/2018 Appointment: Shae Guerrero WPtel: [address] [phone] (30 min) Complex 04/30/2018 Patient Education: Patient Medication Summary Completed 04/30/2018 Patient Education: Back Pain Completed 04/30/2018 Patient Education: Diabetes Completed 04/30/2018 Visit Plan: Sinusitis - Pt has acut e infection - pain in face, maxillary region, Pt informed to use decongestant, RX given to patient, sinus rinses also recommended. Call if symptoms do not show improvement. Rash - culture today in the office -use mupirocin ointment as directed-call if rash does not resolve completely or of if any worse 03/19/2018 Appointment: Ana Burrell WPtel: [address] [phone] (30 min) Complex 03/19/2018 Patient Education: Patient Medication Summary Completed 03/19/2018 Visit Plan: Sinusitis - Pt has acut e infection - pain in face, maxillary region, Pt informed to use decongestant, RX given to patient, sinus rinses also recommended. Call if symptoms do not show improvement. Low ba ck pain -sciatica-gait instability -refer for PT -xray lumbar spine HTN-monitor at home and bring readings to next appt 02/01/2018 Appointment: Ana Burrell WPtel: [address] [phone] (30 min) Complex 02/01/2018 Patient Education: Patient Medication Summary Completed 02/01/2018 Patient Education: Back Pain Completed 02/01/2018 Patient Education: Hypertension Completed 02/01/2018 [facility]ment: [facility]ude [facility]el[facility] (15 min) Moderate 01/24/2018 Referral: Megha Garcia Referral Completed 01/15/2018 Visit Plan: Diabetes Mellitus - Unc ontrolled - per recent FSBS reports. I have recommended for the patient to have follow up labs prior to the next office visit. The patient has been instructed to continue with current medications as previously directed, continue with regular FSBS monitoring to assure continued control of diabetes. Pt to call for any acute concerns, complaints, or if the blood glucose readings are starting to become less controlled. I have recommended for the patient to follow more strictly to the diabetic diet as discussed in clinic to allow for greater blood glucose control. Continue with current management - check labs today - Pt has been given multiple orders for blood work - but she has not ever obtained the blood work. Hypertension - chronic - well controlled - continue with current medications, continue with no added salt diet. Pt has been encouraged to exercise daily. The pt has been advised to call the office if there are any acute concerns about change in blood pressure readings at home. Fatigue - suspect cardiac - Pt would like to see Dr. Garcia instead of Dr. Gracia. Referral has been made. 12/13/2017 Appointment: Maude Man [facility]Ptel[facility] (15 min) Moderate 12/13/2017 Patient Education: Patient Medication Summary Completed 12/13/2017 Patient Education: Diabetes Completed 12/13/2017 Patient Education: Hypertension Completed 12/13/2017 Care Plan: Referral Order SNOMED-CT : [id number] Pending 12/13/2017 Appointment: Maude Man [facility]Ptel: [facility] (15 min) Moderate 11/26/2017 Visit Plan: Diabetes Mellitus - Unc ontrolled - per recent FSBS reports. I have recommended for the patient to have follow up labs prior to the next office visit. The patient has been instructed to continue with current medications as previously directed, continue with regular FSBS monitoring to assure continued control of diabetes. Pt to call for any acute concerns, complaints, or if the blood glucose readings are starting to become less controlled. I have recommended for the patient to follow more strictly to the diabetic diet as discussed in clinic to allow for greater blood glucose control. Pt given paperwork for her glucose parameters - right now our goal for her fasting morning glucose is 200 - she is still above the blood glucose of 200 - continue with current dose of her Toujeo pt to have her labs performed this week - she has been given multiple orders for labs, yet has not followed through IPRO device report reviewed - discussed with pt - medication adjustment will occur after next hgba1c, pt to review diet, we will refer her to diabetic education classes at the hospital. 09/18/2017 Visit Plan: Diabetes Mellitus - Unc ontrolled - per recent FSBS reports. I have recommended for the patient to have follow up labs prior to the next office visit. The patient has been instructed to continue with current medications as previously directed, continue with regular FSBS monitoring to assure continued control of diabetes. Pt to call for any acute concerns, complaints, or if the blood glucose readings are starting to become less controlled. I have recommended for the patient to follow more strictly to the diabetic diet as discussed in clinic to allow for greater blood glucose control. Pt given paperwork for her glucose parameters - right now our goal for her fasting morning glucose is 200 - she is still above the blood glucose of 200 - continue with current dose of her Toujeo pt to have her labs performed this week - she has been given multiple orders for labs, yet has not followed through 09/18/2017 Appointment: Maude Man WPtel: [facility] [place] [place] (15 min) Moderate 09/18/2017 Patient Education: Patient Medication Summary Completed 09/18/2017 Referral: External, Ordering Provider Patient informed. Referral info faxed. Completed 09/17/2017 Appointment: Maude Man [facility]Ptel: [facility] [place] (15 min) Moderate 09/06/2017 Visit Plan: Pouchitis - dehydration - pt sent for outpt fluids and one dose of flagyl. Labs to be done today. DM - chronically uncontrolled - pt is aware that her blood glucose is not controlled, does not regularly check her FSBS, seems to be aware but unfazed by her uncontrolled DM - deluding herself that she has "control" and only gets concerned that her blood glucose is uncontrolled when she has "vision changes". Check labs today. diabetic education classes Hx of Afib - referral to dr. gracia Orthostatic hypotension - recommended pt to decrease dose of beta-fouzia and we will refer to Dr. Gracia. 08/23/2017 Appointment: Maude Man WPtel: [address] [phone] (15 min) Moderate 08/23/2017 Patient Education: Patient Medication Summary Completed 08/23/2017 Care Plan: Comp Metabolic Cancelled 08/23/2017 Care Plan: Cbc With Differential Cancelled 08/23/2017 Care Plan: %Hba1C LOIN C : 84020-7 Cancelled 08/23/2017 Care Plan: Magnesium Cancelled 08/23/2017 Care Plan: Referral Order SNOMED-CT : [id number] Pending 08/23/2017 Appointment: Maude Man WPtel: [facility]8 [phone] (15 min) Moderate 08/13/2017 Visit Plan: CGM removed - pt tolera jomar procedure well - no changes at this time. 06/25/2017 Patient Education: Patient Medication Summary Completed 06/25/2017 Appointment: Maude Man WPtel: [facility]0 [phone] (15 min) Moderate 06/21/2017 Visit Plan: Continuous glucose heidi tor placed - pt tolerated procedure well - pt verbalizes understanding of plan for finger stick and food logs, pt verbalizes understand use/need for monitor and when to return for removal. Diabetes Mellitus - I have recommended for the patient to have follow up labs prior to the next office visit. The patient has been instructed to continue with current medications as previously directed, continue with regular FSBS monitoring to assure continued control of diabetes. Pt to call for any acute concerns, complaints, or if the blood glucose readings are starting to become less controlled. I have recommended for the patient to follow more strictly to the diabetic diet as discussed in clinic to allow for greater blood glucose control. 06/20/2017 Visit Plan: Continuous glucose heidi tor placed - pt tolerated procedure well - pt verbalizes understanding of plan for finger stick and food logs, pt verbalizes understand use/need for monitor and when to return for removal. Diabetes Mellitus - I have recommended for the patient to have follow up labs prior to the next office visit. The patient has been instructed to continue with current medications as previously directed, continue with regular FSBS monitoring to assure continued control of diabetes. Pt to call for any acute concerns, complaints, or if the blood glucose readings are starting to become less controlled. I have recommended for the patient to follow more strictly to the diabetic diet as discussed in clinic to allow for greater blood glucose control. 06/20/2017 Appointment: Shae Guerrero WPtel: [address] [place], [place] [id number] (30 min) [facility] 06/20/2017 Patient Education: Patient Medication Summary Completed 06/20/2017 Visit Plan: Diabetes Mellitus - [facility] ontrolled - per recent FSBS reports. I have recommended for the patient to have follow up labs prior to the next office visit. The patient has been instructed to continue with current medications as previously directed, continue with regular FSBS monitoring to assure continued control of diabetes. Pt to call for any acute concerns, complaints, or if the blood glucose readings are starting to become less controlled. I have recommended for the patient to follow more strictly to the diabetic diet as discussed in clinic to allow for greater blood glucose control. Pt given paperwork for her glucose parameters - right now our goal for her fasting morning glucose is 200 - she is to use her Toujeo at 28 units daily - check her fsbs and if her FSBS is at 200 - leave toujeo at 28 units - if above 200, increase by 2 units and if below 200, decrease by 2 units. rtc in two weeks - once we get the continuous glucose monitors in the office - we will do the 5 day IPRO monitor 06/11/2017 Patient Education: Patient Medication Summary Completed 06/11/2017 Visit Plan: Diabetes Mellitus - Unc ontrolled - per recent FSBS reports. I have recommended for the patient to have follow up labs prior to the next office visit. The patient has been instructed to continue with current medications as previously directed, continue with regular FSBS monitoring to assure continued control of diabetes. Pt to call for any acute concerns, complaints, or if the blood glucose readings are starting to become less controlled. I have recommended for the patient to follow more strictly to the diabetic diet as discussed in clinic to allow for greater blood glucose control. HTN-elevated today-monitor at home and call if consistently 140s/90s or higher Sinusitis - Pt has acute infection - pain in face, maxillary region, Pt informed to use decongestant, RX given to patient, sinus rinses also recommended. Call if symptoms do not show improvement. 06/04/2017 Patient Education: Patient Medication Summary Completed 06/04/2017 Appointment: Ana Burrell WPtel: [phone] (30 min) Complex 05/31/2017 Appointment: Ana Burrell WPtel: [address] [place], [place] [phone] (30 min) Complex 05/29/2017 Appointment: Ana Burrell WPtel: [address] [place], [place] [phone] (30 min) Complex 05/24/2017 Visit Plan: Left sided abdominal pa in-blood in stools - history of ulcerative colitis with colectomy and kock pouch - plan for CT abd/pelvis and proceed as indicated DM-check hgb a1c -refill toujeo Hypertension - well controlled - continue with current medications, continue with no added salt diet. Pt has been encouraged to exercise daily. The pt has been advised to call the office if there are any acute concerns about change in blood pressure readings at home. Chronic Depression and anxiety - the pt has symptoms of chronic anxiety and depression that have been fairly well controlled since the last office visit. The pt has expected periods of exacerbation with abatement of the symptoms with change in situational exposure. No change in current medications. 04/24/2017 Appointment: Ana Burrell WPtel: [facility]3 [phone] New Patient 04/24/2017 Patient Education: Patient Medication Summary Completed 04/24/2017 Appointment: Shae Guerrero WPtel: [facility] [facility] Patient 04/20/2017 Referral: External, Ordering Provider Referral Appointment Requested Referral: Shonna King there o ffice will call her to schedule appt Initiated Referral: Megha Garcia Referral Appointment Requested Referral: Shonna King Referral Initiated Instructions Comment . Weakness, gait ins tability, Left hip, lower back pain - will check x-ray - pt is to consider referral for PT Headache after fall - will send for stat head CT and treat as indicated Diabetes Mellitus - Uncontrolled - per recent FSBS reports. I have recommended for the patient to have follow up labs prior to the next office visit. The patient has been instructed to continue with current medications as previously directed, continue with regular FSBS monitoring to assure continued control of diabetes. Pt to call for any acute concerns, complaints, or if the blood glucose readings are starting to become less controlled. I have recommended for the patient to follow more strictly to the diabetic diet as discussed in clinic to allow for greater blood glucose control. . Continuous glucose monitor placed - pt tolerated procedure well - pt verbalizes understanding of plan for finger stick and food logs, pt verbalizes understand use/need for monitor and when to return for removal. Diabetes Mellitus - I have recommended for the patient to have follow up labs prior to the next office visit. The patient has been instructed to continue with current medications as previously directed, continue with regular FSBS monitoring to assure continued control of diabetes. Pt to call for any acute concerns, complaints, or if the blood glucose readings are starting to become less controlled. I have recommended for the patient to follow more strictly to the diabetic diet as discussed in clinic to allow for greater blood glucose control. . Continuous glucose monitor placed - pt tolerated procedure well - pt verbalizes understanding of plan for finger stick and food logs, pt verbalizes understand use/need for monitor and when to return for removal. Diabetes Mellitus - I have recommended for the patient to have follow up labs prior to the next office visit. The patient has been instructed to continue with current medications as previously directed, continue with regular FSBS monitoring to assure continued control of diabetes. Pt to call for any acute concerns, complaints, or if the blood glucose readings are starting to become less controlled. I have recommended for the patient to follow more strictly to the diabetic diet as discussed in clinic to allow for greater blood glucose control. CT ABD/PELVIS WITH/W ITHOUT IV AND WITH ORAL . Left sided abdominal pain-blood in sto ols -history of ulcerative colitis with colectomy and kock pouch - plan for CT abd/pelvis and proceed as indicated DM-check hgb a1c -refill toujeo Hypertension - well controlled - continue with current medications, continue with no added salt diet. Pt has been encouraged to exercise daily. The pt has been advised to call the office if there are any acute concerns about change in blood pressure readings at home. Chronic Depression and anxiety - the pt has symptoms of chronic anxiety and depression that have been fairly well controlled since the last office visit. The pt has expected periods of exacerbation with abatement of the symptoms with change in situational exposure. No change in current medications. Physical therapy asad Richter xray lumbar spine keflex for sinus infection lorena daily for congestion/allergies nasal saline rinse pump legs before standing monitor blood pressure and pulse . Sinusitis - Pt has acute infection - p ain in face, maxillary region, Pt informed to use decongestant, RX given to patient, sinus rinses also recommended. Call if symptoms do not show improvement. Low back pain -sciatica-gait instability -refer for PT -xray lumbar spine HTN-monitor at home and bring readings to next appt . Diabetes Mellitus - Uncontrolled - per recent FSBS reports. I have recommended for the patient to have follow up labs prior to the next office visit. The patient has been instructed to continue with current medications as previously directed, continue with regular FSBS monitoring to assure continued control of diabetes. Pt to call for any acute concerns, complaints, or if the blood glucose readings are starting to become less controlled. I have recommended for the patient to follow more strictly to the diabetic diet as discussed in clinic to allow for greater blood glucose control. Pt given paperwork for her glucose parameters - right now our goal for her fasting morning glucose is 200 - she is to use her Toujeo at 28 units daily - check her fsbs and if her FSBS is at 200 - leave toujeo at 28 units - if above 200, increase by 2 units and if below 200, decrease by 2 units. rtc in two weeks - once we get the continuous glucose monitors in the office - we will do the 5 day IPRO monitor . CGM removed - pt t olerated procedure well - no changes at this time. . Diabetes Mellitus - Uncontrolled - per recent FSBS reports. I have recommended for the patient to have follow up labs prior to the next office visit. The patient has been instructed to continue with current medications as previously directed, continue with regular FSBS monitoring to assure continued control of diabetes. Pt to call for any acute concerns, complaints, or if the blood glucose readings are starting to become less controlled. I have recommended for the patient to follow more strictly to the diabetic diet as discussed in clinic to allow for greater blood glucose control. Pt given paperwork for her glucose parameters - right now our goal for her fasting morning glucose is 200 - she is still above the blood glucose of 200 - continue with current dose of her Toujeo pt to have her labs performed this week - she has been given multiple orders for labs, yet has not followed through IPRO device report reviewed - discussed with pt - medication adjustment will occur after next hgba1c, pt to review diet, we will refer her to diabetic education classes at the hospital. . Diabetes Mellitus - Uncontrolled - per recent FSBS reports. I have recommended for the patient to have follow up labs prior to the next office visit. The patient has been instructed to continue with current medications as previously directed, continue with regular FSBS monitoring to assure continued control of diabetes. Pt to call for any acute concerns, complaints, or if the blood glucose readings are starting to become less controlled. I have recommended for the patient to follow more strictly to the diabetic diet as discussed in clinic to allow for greater blood glucose control. Pt given paperwork for her glucose parameters - right now our goal for her fasting morning glucose is 200 - she is still above the blood glucose of 200 - continue with current dose of her Toujeo pt to have her labs performed this week - she has been given multiple orders for labs, yet has not followed through . Diabetes Mellitus - Uncontrolled - per recent FSBS reports. I have recommended for the patient to have follow up labs prior to the next office visit. The patient has been instructed to continue with current medications as previously directed, continue with regular FSBS monitoring to assure continued control of diabetes. Pt to call for any acute concerns, complaints, or if the blood glucose readings are starting to become less controlled. I have recommended for the patient to follow more strictly to the diabetic diet as discussed in clinic to allow for greater blood glucose control. Continue with current management - check labs today - Pt has been given multiple orders for blood work - but she has not ever obtained the blood work. Hypertension - chronic - well controlled - continue with current medications, continue with no added salt diet. Pt has been encouraged to exercise daily. The pt has been advised to call the office if there are any acute concerns about change in blood pressure readings at home. Fatigue - suspect cardiac - Pt would like to see Dr. Garcia instead of Dr. Gracia. Referral has been made. . Pouchitis - dehydr ation - pt sent for outpt fluids and one dose of flagyl. Labs to be done today. DM - chronically uncontrolled - pt is aware that her blood glucose is not controlled, does not regularly check her FSBS, seems to be aware but unfazed by her uncontrolled DM - deluding herself that she has "control" and only gets concerned that her blood glucose is uncontrolled when she has "vision changes". Check labs today. diabetic education classes Hx of Afib - referral to dr. gracia Orthostatic hypotension - recommended pt to decrease dose of beta-fouzia and we will refer to Dr. Gracia. Lasix 40mg daily x 3 days, then 20mg daily as needed for swelling or weight gain over 3 lbs potassium 20meq daily x 3 days then 10meq daily ONLY when taking the lasix. augmentin - for URI symptoms and cough chest x-ray for dawson colored sputum urine sample today. URI - Pt advised to increase fluids, vitamin C. Discussed natural and expected course of this diagnosis and need to alert me if symptoms do not follow expected course, or if any worse. RX sent to patient's pharmacy. Allergies - chronic - recommended pt to use allergy medication as prescribed. Pt has been counseled as to the appropriate use of the medication. Pt to call if allergy symptoms are not controlled with the medication. If using nasal spray, instructions as follows: Nasal spray- use twice daily, one spray per nostril twice daily, after 30 minutes, rinse out nose with saline spray.. Use opposite hand per nostril to spray in the nasal steroid allergy spray. Edema - pt has been advised to elevate legs to prevent dependent edema, compression has been recommended to help to naturally decrease peripheral edema. Diuretic use has been discussed and pt has been instructed in appropriate use of such medication as necessary to further attempt to reduce peripheral edema. start apidra 5 units with breakfast call in 1 week with blood sugars continue toujeo keflex for sinus infection . Diabetes Mellitus - Uncontrolled - per recent FSBS reports. I have recommended for the patient to have follow up labs prior to the next office visit. The patient has been instructed to continue with current medications as previously directed, continue with regular FSBS monitoring to assure continued control of diabetes. Pt to call for any acute concerns, complaints, or if the blood glucose readings are starting to become less controlled. I have recommended for the patient to follow more strictly to the diabetic diet as discussed in clinic to allow for greater blood glucose control. HTN-elevated today-monitor at home and call if consistently 140s/90s or higher Sinusitis - Pt has acute infection - pain in face, maxillary region, Pt informed to use decongestant, RX given to patient, sinus rinses also recommended. Call if symptoms do not show improvement. . Sinusitis - Pt has acute infection - pain in face, maxillary region, Pt informed to use decongestant, RX given to patient, sinus rinses also recommended. Call if symptoms do not show improvement. Rash -culture today in the office -use mupirocin ointment as directed-call if rash does not resolve completely or of if any worse will refer you to Dr Violeta King increase your insulin to 50 units at night - check sugars 3 times a day and bring your blood sugar readings by in 2 weeks for your swelling - lasix (water pill) 40mg daily x 3 days and potassium 20meq daily x 3 days while on the lasix get compression stockings and wear them while you are up during the day keep your feet elevated when you are sitting. Follow up appointment in 2 weeks to see how you are doing. . Diabetes Mellitus - Uncontrolled - increase basaglar to 50 units at night. I have recommended for the patient to have follow up labs prior to the next office visit. The patient has been instructed to continue with current medications as previously directed, continue with regular FSBS monitoring to assure continued control of diabetes. Pt to call for any acute concerns, complaints, or if the blood glucose readings are starting to become less controlled. I have recommended for the patient to follow more strictly to the diabetic diet as discussed in clinic to allow for greater blood glucose control. Edema - pt has been advised to elevate legs to prevent dependent edema, compression has been recommended to help to naturally decrease peripheral edema. Diuretic use has been discussed and pt has been instructed in appropriate use of such medication as necessary to further attempt to reduce peripheral edema. UTI - pt with positive urinalysis - culture sent if appropriate. Antibiotic electronically prescribed to pt's pharmacy of choice. Pt to call if symptoms do not improve. KUB LEFT SHOULDER, LEFT HIP AND LUMBAR SPINE XRAY REPEAT LABS PT WITH AUDREY RICHTER RX FOR FRONT WHEELED WALKER SHORT SUPPLY OF TRAMADOL FOR ACUTE PAIN ZOFRAN FOR NAUSEA . Abdominal pain -UA negative-check labs - KUB -monitor symptoms and call if pain does not resolve or if any worse -zofran as needed for nausea Left hip, lower back and left shoulder pain -post multiple falls-obtain xrays- will give short supply of tramadol for pain -use tylenol as needed- NO NSAIDs Gait instability-repeated fall -rx for walker provided to help with stability and help prevent falls-appt with Audrey Richter for PT to evaluate and treat CKD-check labs -discussed importance of diabetes control and adequate hydration
--- OUTSIDE RECORDS SUMMARY | 2019-01-29 06:06 | XMS REPORT | CCD ---
Author Author Baylee Burrell Organization Maude Man MD, [facility] Address [address] [place] [address] Phone Care Team Providers Care Oil Well Shooter Name Role Phone PP Unavailable CCM Unavailable Summary Purpose Interface Exchange Insurance Providers Payer name Policy type / Coverage type Covered democrat ID Effective Begin Date Effective End Date WPS Medicare Part B Blue Cross/Blue Shield [id number] Unknown Blue Cross Blue Shield [facility] [place] e Cross/Blue Shield [id number] Un known Blue Cross/Blue Shield [id number] Unknown Family history Sister Diagnosis Age At [...] 1 04/24/2017 Employment Unknown [employer] 04/24/[address]: 929006245 Never smoker 04/24/[address]: 350631102 Never drinks alcohol 04/24/2017 Allergies, Adverse Reactions, Alerts Substance Reaction Codes Entered Date Inactivated Date Status Levaquin RxNorm: 94009 04/24/2017 No Inactive Date Active Past Medical [...] Instruc tions Start Date Stop Date Sta s Fill Instructions Lasix 20 mg tablet RxNorm: 530855 Tablet(s) PO Lasix 40mg daily x 3 days, then 20mg daily as needed for swelling or weight gain over 3 lbs 05/30/2018 No Stop Date Active potassium chloride E R 10 mEq tablet,extended release RxNorm: 981876 Tablet(s) potassium 20meq daily x 3 days then 10meq daily ONLY when taking the lasix. 05/30/2018 No Stop Date Active Augmentin 500 mg-125 mg tablet RxNorm: 693999 1 Tablet(s) PO TID 05/30/2018 06/08/2018 Inactive Basaglar KwikPen U-1 00 Insulin 100 unit/mL (3 mL) subcutaneous RxNorm: 7855892 50 Unit(s) SQ daily 05/29/2018 12/24/2018 Active qty sufficient for 1 month tramadol 50 mg tablet RxNorm: 859312 1 Tablet(s) PO Q6 PRN 05/29/2018 06/23/2018 Inactive potassium chloride E R 20 mEq tablet,extended release RxNorm: 176166 1 Tablet(s) PO daily 05/23/2018 05/25/2018 Inactive Lasix 40 mg tablet RxNorm: 408229 1 Tablet(s) PO daily 05/23/2018 05/25/2018 Inactive Keflex 500 mg capsule RxNorm: 176332 1 Capsule(s) PO TID 05/23/2018 05/29/2018 Inactive Zofran 4 mg tablet RxNorm: 103605 1 Tablet(s) PO Q6 PRN 05/06/2018 No Stop Date Active tramadol 50 mg tablet RxNorm: 635676 1 Tablet(s) PO Q6 PRN 05/06/2018 05/28/2018 Inactive Basaglar KwikPen U-1 00 Insulin 100 unit/mL (3 mL) subcutaneous RxNorm: 6468487 46 Unit(s) SQ daily 05/03/2018 05/28/2018 Inactive qty sufficient for 1 month doxycycline hyclate 100 mg tablet RxNorm: 5973596 1 Tablet(s) PO BID 03/19/2018 03/25/2018 Inactive mupirocin 2 % topica l ointment RxNorm: 563648 1 Application TOP BID 03/19/2018 03/28/2018 Inactive Basaglar KwikPen U-1 00 Insulin 100 unit/mL (3 mL) subcutaneous RxNorm: 8581457 45 Unit(s) SQ daily 03/06/2018 05/02/2018 Inactive Basaglar KwikPen U-1 00 Insulin 100 unit/mL (3 mL) subcutaneous RxNorm: 6430000 45 Unit(s) SQ daily 03/06/2018 03/05/2018 Inactive Toujeo SoloStar U-30 0 Insulin 300 unit/mL (1.5 mL) subcutaneous pen RxNorm: 6501777 Unit(s) INJECT 45 UNITS UNDER THE SKIN DAILY 02/22/2018 03/05/2018 Inactive 30 d ay supply Toujeo SoloStar U-30 0 Insulin 300 unit/mL (1.5 mL) subcutaneous pen RxNorm: 1758360 INJECT 40 UNITS UNDER THE SKIN DAILY 02/21/2018 02/21/2018 Inactive Keflex 500 mg capsule RxNorm: 917790 1 Capsule(s) PO TID 02/01/2018 02/07/2018 Inactive Toujeo SoloStar U-30 0 Insulin 300 unit/mL (1.5 mL) subcutaneous pen RxNorm: 7804473 45 Unit(s) SQ daily 12/26/2017 No Stop Date Active atorvastatin 40 mg t ablet RxNorm: 568551 Tablet(s) TAKE ONE-REA LF TABLET BY MOUTH EVERY EVENING 12/26/2017 No Stop Date Active Restasis 0.05 % eye drops in a dropperette RxNorm: 219271 INSTILL ONE DROP IN E ACH EYE EVERY 12 HOURS 12/24/2017 04/22/2018 Inactive atorvastatin 40 mg t ablet RxNorm: 187955 TAKE ONE TABLET BY MO UTH EVERY EVENING 12/17/2017 12/25/2017 In active venlafaxine ER 150 m g tablet,extended release 24 hr RxNorm: 999518 TAKE ONE CAPSULE BY MOUTH DAILY 10/11/2017 07/07/2018 Active metoprolol succinate ER 50 mg tablet,extended release 24 hr RxNorm: 472275 TAKE ONE TABLET BY MOUTH DAILY 10/11/2017 07/07/2018 Active atorvastatin 40 mg t ablet RxNorm: 481795 TAKE ONE TABLET BY MO UTH EVERY EVENING 10/11/2017 12/16/2017 In active metoprolol succinate ER 25 mg tablet,extended release 24 hr RxNorm: 268305 1/2 Tablet(s) PO daily 09/18/2017 03/16/2018 Inactive metronidazole 500 mg tablet RxNorm: 194613 1 Tablet(s) PO TID 08/23/2017 09/01/2017 Inactive Diflucan 150 mg tablet RxNorm: 521607 1 Tablet(s) PO daily 08/23/2017 09/01/2017 Inactive atorvastatin 40 mg t ablet RxNorm: 305896 1 Tablet(s) PO QPM 08/02/2017 10/10/2017 Inactive Toujeo SoloStar U-30 0 Insulin 300 unit/mL (1.5 mL) subcutaneous pen RxNorm: 0261559 40 Unit(s) SQ daily 07/30/2017 12/25/2017 Inactive Novofine 32 32 gauge x 1/4" needle RxNorm: USE TO TEST BLOOD SUGAR ONC E DAILY 07/26/2017 04/16/2019 Ac tive Toujeo SoloStar U-30 0 Insulin 300 unit/mL (1.5 mL) subcutaneous pen RxNorm: 6684052 INJECT 24 UNITS UNDER THE SKIN EVERY EVENING 07/26/2017 07/29/2017 Inactive Apidra U-100 Insulin 100 unit/mL subcutaneous solution RxNorm: 181601 5 Unit(s) SQ AC 06/06/2017 06/06/2017 Inactive start with 5 units with breakfast -call with blood sugars in 1 week Keflex 500 mg capsule RxNorm: 026470 1 Capsule(s) PO TID 06/04/2017 06/10/2017 Inactive Apidra U-100 Insulin 100 unit/mL subcutaneous solution RxNorm: 258432 5 Unit(s) SQ AC 06/04/2017 06/05/2017 Inactive start with 5 units with breakfast -call with blood sugars in 1 week Restasis 0.05 % eye drops in a dropperette RxNorm: 375963 1 gtts ophthalmic (ey e) Q12H 06/04/2017 07/03/2017 Inactive Toujeo SoloStar U-30 0 Insulin 300 unit/mL (1.5 mL) subcutaneous pen RxNorm: 3305061 28 Unit(s) SQ QPM x1 week, then 32 units daily. 04/26/2017 08/28/2017 Inactive Restasis MultiDose 0 .05 % eye drops RxNorm: 496270 1 Drop(s) ophthalmic (eye) daily - BID 04/24/2017 No Stop Date Active cyanocobalamin (vit B-12) 1,000 mcg/mL injection solution RxNorm: 738568 1 Milliliter(s) Inj QW -BIW 04/24/2017 07/22/2017 Inactive disp with syringes please Toujeo SoloStar U-30 0 Insulin 300 unit/mL (1.5 mL) subcutaneous pen RxNorm: 1382544 24 Unit(s) SQ QPM 04/24/2017 04/23/2017 Inactive Novofine 32 32 gauge x 1/4" needle RxNorm: 1 test Miscellaneous daily 04/24/2017 07/22/2017 In active E11.65 use with westley venlafaxine ER 150 m g tablet,extended release 24 hr RxNorm: 112046 1 Tablet(s) PO daily 04/24/2017 10/10/2017 Inactive cyanocobalamin (vit B-12) 1,000 mcg/mL injection solution RxNorm: 690708 1 Milliliter(s) Inj QW -BIW 04/24/2017 04/23/2017 Inactive metoprolol succinate ER 50 mg tablet,extended release 24 hr RxNorm: 917786 1 Tablet(s) PO daily 04/24/2017 09/17/2017 Inactive Toujeo SoloStar U-30 0 Insulin 300 unit/mL (1.5 mL) subcutaneous pen RxNorm: 2237481 24 Unit(s) SQ QPM 04/24/2017 04/25/2017 Inactive Centrum Silver tablet RxNorm: 1 Tablet(s) PO daily No Start Date Active Novolog U-100 Insuli n aspart 100 unit/mL subcutaneous solution RxNorm: 809608 5 Unit(s) SQ AC No Start Date Active magnesium 250 mg tablet RxNorm: 1 Tablet(s) PO as needed No Start Date Active Probiotic Blend oral RxNorm: 493272 oral No Start Date Active Calcium 600 + D(3) 6 00 mg (1,500 mg)-400 unit tablet RxNorm: 820878 1 Tablet(s) PO as needed No Start Date Active atorvastatin 40 mg t ablet RxNorm: 459088 1 Tablet(s) PO QPM No Start Date 08/01/2017 Inactive Novofine 32 32 gauge x 1/4" needle RxNorm: 1 Miscellaneous daily No Start Date 04/23/2017 Inactive cyanocobalamin (vit B-12) 1,000 mcg/mL injection solution RxNorm: 577260 1 Milliliter(s) Inj No Start Date 04/23/2017 Inactive metoprolol succinate ER 50 mg tablet,extended release 24 hr RxNorm: 435729 1 Tablet(s) PO daily No Start Date 04/23/2017 Inactive lisinopril 5 mg tablet RxNorm: 308187 1 Tablet(s) PO QPM No Start Date 04/23/2017 Inactive Restasis MultiDose 0 .05 % eye drops RxNorm: 590429 Drop(s) ophthalmic (e ye) No Start Date 04/23/2017 Inactive venlafaxine ER 150 m g capsule,extended release 24 hr RxNorm: 530651 1 Capsule(s) PO daily No Start Date [...] Code Item Item Code Result Date Lipase Epj753 LIPASE 26 U/L 05/06/2018 Comp Metabolic Zck854 NA 140 mEq/L 05/06/2018 Comp Metabolic Eip288 K 4.5 mEq/L 05/06/2018 Comp Metabolic Yim555 CL 109 mEq/L 05/06/2018 Comp Metabolic Opv621 CO2 24.0 mEq/L 05/06/2018 Comp Metabolic Feh083 AN ION GAP 12 05/06/2018 Comp Metabolic Yoo598 GL UCOSE 341 mg/dL 05/06/2018 Comp Metabolic Xav280 Cr eat 1.6 mg/dL 05/06/2018 Comp Metabolic Hdl578 eG FR 34 ml/min/1.73m2 05/06 Comp Metabolic Yoy411 BUN 39 mg/dL 05/06/2018 Comp Metabolic Ilm670 B/ C Ratio 24.7 Ratio 05/06/2018 Comp Metabolic Zwi394 CA LCIUM 9.1 mg/dL 05/06/2018 Comp Metabolic Ypw787 AL K PHOS 61 U/L 05/06/2018 Comp Metabolic Ozy642 T(SGOT) 21 U/L 05/06/2018 Comp Metabolic Hmw885 AL T(SGPT) 28 U/L 05/06/2018 Comp Metabolic Kcp770 BI LI T 0.3 mg/dL 05/06/2018 Comp Metabolic Ykh796 AL BUMIN 3.8 g/dL 05/06/2018 Comp Metabolic Jii288 TP RO 6.1 g/dL 05/06/2018 Comp Metabolic Ilz401 GL OB 2.4 g/dL 05/06/2018 Comp Metabolic Hij432 A/ G Ratio 1.6 Ratio 05/06/2018 Comp Metabolic Zos357 Os mo 302 mOsmo 05/06/2018 Amylase Ord34 AMYLASE 48 U/L 05/06/2018 Lipid Ord30 CHOL 171 mg/dL 12/13/2017 Lipid Ord30 HDL 64.0 mg/dl 12/13/2017 Lipid Ord30 TRIG 89 mg/dL 12/13/2017 Lipid Ord30 LDL 89 mg/dL 12/13/2017 Lipid Ord30 C/HDL 2.7 Ratio 12/13/2017 Comp Metabolic Nzw601 NA 140 mEq/L 12/13/2017 Comp Metabolic Sdn026 K 4.4 mEq/L 12/13/2017 Comp Metabolic Vvj977 CL 107 mEq/L 12/13/2017 Comp Metabolic Jud890 CO2 23.0 mEq/L 12/13/2017 Comp Metabolic Qme776 AN ION GAP 14 12/13/2017 Comp Metabolic Ytd207 GL UCOSE 179 mg/dL 12/13/2017 Comp Metabolic Fji413 Cr eat 1.7 mg/dL 12/13/2017 Comp Metabolic Mbp310 eG FR 31 ml/min/1.73m2 12/13 Comp Metabolic Zfr596 BUN 40 mg/dL 12/13/2017 Comp Metabolic Xek710 B/ C Ratio 23.3 Ratio 12/13/2017 Comp Metabolic Jhw507 CA LCIUM 10.3 mg/dL 12/13/2017 Comp Metabolic Els712 AL K PHOS 54 U/L 12/13/2017 Comp Metabolic Jyb435 T(SGOT) 41 U/L 12/13/2017 Comp Metabolic Izm227 AL T(SGPT) 44 U/L 12/13/2017 Comp Metabolic Imk912 BI LI T 0.4 mg/dL 12/13/2017 Comp Metabolic Mon100 AL BUMIN 4.9 g/dL 12/13/2017 Comp Metabolic Jap051 TP RO 7.7 g/dL 12/13/2017 Comp Metabolic Xow844 GL OB 2.8 g/dL 12/13/2017 Comp Metabolic Ebm677 A/ G Ratio 1.8 Ratio 12/13/2017 Comp Metabolic Fis884 Os mo 294 mOsmo 12/13/2017 Tsh Ord6 TSH (3rd IS) 2.56 uIU/mL 12/13/2017 %Hba1C Rwh311 % HbA1c 18227-9 9.6 % 12/13/2017 %Hba1C Spr442 Gluc Ave 229 mg/dL 12/13/2017 Cbc With [...] 32.0 pg 12/13/2017 Cbc With Differential Ord2 Caldwell% 8.0 % 12/13/2017 Cbc With Differential Ord2 [...] 1.44 K/ul 12/13/2017 Cbc With Differential Ord2 [place]dwell ABS# 0.5 K/ul 12/13/2017 Cbc With Differential Ord2 Eos ABS# 0.1 K/ul 12/13/2017 Cbc With Differential Ord2 Baso ABS# 0.0 K/ul 12/13/2017 %Hba1C Oyg371 % HbA1c 45895-7 13.1 % 04/24/2017 %Hba1C Rvl910 Gluc Ave 329 mg/dL 04/24/2017 Cbc With [...] 32.0 pg 04/24/2017 Cbc With Differential Ord2 Caldwell% 11.0 % 04/24/2017 Cbc With Differential Ord2 [...] 2.39 K/ul 04/24/2017 Cbc With Differential Ord2 [place]dwell ABS# 0.8 K/ul 04/24/2017 Cbc With Differential Ord2 Eos ABS# 0.1 K/ul 04/24/2017 Cbc With Differential Ord2 Baso ABS# 0.0 K/ul 04/24/2017 Comp Metabolic Fyh781 NA 142 mEq/L 04/24/2017 Comp Metabolic Xsi599 K 3.8 mEq/L 04/24/2017 Comp Metabolic Gzi880 CL 105 mEq/L 04/24/2017 Comp Metabolic Dkb459 CO2 27.0 mEq/L 04/24/2017 Comp Metabolic Gcb801 AN ION GAP 14 04/24/2017 Comp Metabolic Nis149 GL UCOSE 203 mg/dL 04/24/2017 Comp Metabolic Mcy784 Cr eat 1.9 mg/dL 04/24/2017 Comp Metabolic Jcj130 eG FR 28 ml/min/1.73m2 04/24 Comp Metabolic Yby761 BUN 26 mg/dL 04/24/2017 Comp Metabolic Daa325 B/ C Ratio 13.6 Ratio 04/24/2017 Comp Metabolic Swn001 CA LCIUM 9.9 mg/dL 04/24/2017 Comp Metabolic Fkz462 AL K PHOS 79 U/L 04/24/2017 Comp Metabolic Djc523 T(SGOT) 25 U/L 04/24/2017 Comp Metabolic Xtb853 AL T(SGPT) 36 U/L 04/24/2017 Comp Metabolic Vfc376 BI LI T 0.3 mg/dL 04/24/2017 Comp Metabolic Cax188 AL BUMIN 4.5 g/dL 04/24/2017 Comp Metabolic Xao316 TP RO 6.9 g/dL 04/24/2017 Comp Metabolic Sng772 GL OB 2.5 g/dL 04/24/2017 Comp Metabolic Mrb392 A/ G Ratio 1.8 Ratio 04/24/2017 Comp Metabolic Egm918 Os mo 294 mOsmo 04/24/2017 Review of [...] No alteration of consciousness 12/13/2017 Psychiatric anxiety 02/2017 Psychiatric depression 1 02/12/2017 Endocrine diabetes mellitus type 2 12/13/2017 Neurologic headache 11/0 02/2017 Constitutional recent illness 09/18/2017 Constitutional anorexia [...] No alteration of consciousness 04/24/2017 Psychiatric anxiety 04/12 Psychiatric depression 0 04/24/2017 Neurologic No memory [...] nourished 05/23/2018 None Full Exam - General 1995 Eyes conjunctiva/eyelids Overall: conjunctiva clear 05/23/2018 None Full Exam - General 1994 Eyes conjunctiva/eyelids Overall: cornea clear 05/23/2018 None Full Exam - General 1994 Eyes conjunctiva/eyelids Overall: eyelids normal 05/23/2018 None Full Exam - General 1995 Ears/Nose/Throat lips/teeth/gingiva Overall: benign lips 05/23/2018 None Full Exam - General 1995 Ears/Nose/Throat oral cavity/pharynx/larynx Overall: oral mucosa clear 05/23/2018 None Full Exam - General 1995 Ears/Nose/Throat oral cavity/pharynx/larynx Overall: oropharyngeal mucosa clear [...] 08/23/2017 stoma RLQ Full Exam - General 1995 Abdomen abdominal exam Upper quadrant: tender to [...] Date URINALYSIS NONAUTO W /O SCOPE CPT-4: 94786 05/06/2018 GLUC MONITOR CONT PH YS I&R CPT-4: 50242 09/18/2017 GLUCOSE MONITORING CONT CPT-4: 27951 06/20/2017 Vital Signs Date Vital 05/30/2018 Blood Pressure 1: 144/64 Code: 8480-6 BMI: 22.4 Code: 60204-4 Heart Rate 1: 89 bpm Height: 5'6" SpO2: 98% Temperature: 37.2 (C ) / 98.9 (F) Weight: 139 lbs 05/23/2018 Blood Pressure 1: 146/66 Code: 8480-6 BMI: 22.4 Code: 68721-2 Heart Rate 1: 85 bpm Height: 5'6" SpO2: 97% Weight: 139 lbs 05/06/2018 Blood Pressure 1: 128/86 Code: 8480-6 BMI: 20.8 Code: 74730-2 Heart Rate 1: 96 bpm Height: 5'6" SpO2: 96% Weight: 129 lbs 04/30/2018 Blood Pressure 1: 124/66 Code: 8480-6 Heart Rate 1: 87 bpm Height: 5'6" SpO2: 98% 03/19/2018 Blood Pressure 1: 142/84 Code: 8480-6 BMI: 20.5 Code: 77238-9 Heart Rate 1: 88 bpm Height: 5'6" SpO2: 98% Temperature: 36.6 (C ) / 97.9 (F) Weight: 129 lbs 02/01/2018 Blood Pressure 1: 110/52 Code: 8480-6 BMI: 19.9 Code: 72743-3 Height: 5'6" Weight: 125 lbs 12/13/2017 Blood Pressure 1: 140/80 Code: 8480-6 BMI: 19.9 Code: 50093-7 Heart Rate 1: 72 bpm Height: 5'6" SpO2: 95% Weight: 125 lbs 09/18/2017 Blood Pressure 1: 126/82 Code: 8480-6 BMI: 20.0 Code: 98573-1 Heart Rate 1: 103 bpm Height: 5'6" SpO2: 98% Weight: 126 lbs 08/23/2017 Blood Pressure 1: 118/62 Code: 8480-6 Heart Rate 1: 110 bpm Height: 5'6" SpO2: 95% Temperature: 37.1 (C ) / 98.7 (F) 06/20/2017 Heigh t: Weight: 06/11/2017 Blood Pressure 1: 142/76 Code: 8480-6 BMI: 21.3 Code: 99959-4 Heart Rate 1: 102 bpm Height: 5'6" SpO2: 97% Weight: 134 lbs 06/04/2017 Blood Pressure 1: 160/84 Code: 8480-6 BMI: 20.8 Code: 09697-5 Heart Rate 1: 87 bpm Height: 5'6" SpO2: 97% Weight: 131 lbs 04/24/2017 Blood Pressure 1: 132/80 Code: 8480-6 BMI: 20.8 Code: 01360-3 Heart Rate 1: 84 bpm Height: 5'6" [...] Encounters Encounter Performer Loca tion Codes Date ([id number]) 37255 EST. P ATIENT, LEVEL IV Diagnosis: Acute laryngopharyngitis[ICD10: J06.0] Diagnosis: Other allergic rhinitis[ICD10: J30.89] Diagnosis: Localized edema[ICD10: R60.0] Shae Man MD, [facility] CPT-4: 61033 05/30/2018 06316 EST. PATIENT, LEVEL III Diagnosis: Dysuria[ICD10: R30.0] Diagnosis: Type 2 diabetes mellitus with hyperglycemia[ICD10: E11.65] Diagnosis: Localized edema[ICD10: R60.0] Shae Man MD, [facility] CPT-4: 13501 05/23/2018 ([id number]) 29912 EST. P ATIENT, LEVEL IV Diagnosis: Low back pain[ICD10: M54.5] Diagnosis: Left upper quadrant pain[ICD10: R10.12] Diagnosis: Pain in left hip[ICD10: M25.552] Diagnosis: Pain in left shoulder[ICD10: M25.512] Diagnosis: Repeated falls[ICD10: R29.6] Diagnosis: Unsteadiness on feet[ICD10: R26.81] Diagnosis: Chronic kidney disease, stage 3 (moderate)[ICD10: N18.3] [facility] CPT-4: 79428 05/06/2018 [id number] EST. PATIENT, LEVEL III Diagnosis: Low back pain[ICD10: M54.5] Diagnosis: Pain in left hip[ICD10: M25.552] Diagnosis: Repeated falls[ICD10: R29.6] Diagnosis: Unsteadiness on feet[ICD10: R26.81] Diagnosis: Headache[ICD10: R51] Diagnosis: Type 2 diabetes mellitus with hyperglycemia[ICD10: E11.65] [facility] CPT-4: 47435 04/30/2018 ([id number]) 57475 EST. P ATIENT, LEVEL III Diagnosis: Acute recurrent maxillary sinusitis[ICD10: J01.01] Diagnosis: Rash and other nonspecific skin eruption[ICD10: R21] [facility] CPT-4: 00518 03/19/2018 ([id number]) 56987 EST. P ATIENT, LEVEL IV Diagnosis: Acute recurrent maxillary sinusitis[ICD10: J01.01] Diagnosis: Low back pain[ICD10: M54.5] Diagnosis: Unsteadiness on feet[ICD10: R26.81] Diagnosis: Essential (primary) hypertension[ICD10: I10] [facility] CPT-4: 35475 02/01/2018 ([id number]) 98482 EST. P ATIENT, LEVEL IV Diagnosis: Type 2 diabetes mellitus with hyperglycemia[ICD10: E11.65] Diagnosis: Essential (primary) hypertension[ICD10: I10] Diagnosis: Other fatigue[ICD10: R53.83] Maude Man MD, [facility] CPT-4: 59176 12/13/2017 ([id number]) 86221 EST. P ATIENT, LEVEL IV Diagnosis: Type 2 diabetes mellitus with hyperglycemia[ICD10: E11.65] Diagnosis: Essential (primary) hypertension[ICD10: I10] Diagnosis: Major depressive disorder, recurrent, in partial remission[ICD10: F33.41] Maude Man MD, [facility] CPT-4: 54913 09/18/2017 ([id number]) 07873 EST. P ATIENT, LEVEL IV Diagnosis: Pouchitis[ICD10: K91.850] Diagnosis: Other fatigue[ICD10: R53.83] Diagnosis: Type 2 diabetes mellitus with hyperglycemia[ICD10: E11.65] Diagnosis: Essential (primary) hypertension[ICD10: I10] Diagnosis: Orthostatic hypotension[ICD10: I95.1] Maude Man MD, [facility] CPT-4: 49634 08/23/2017 ([id number]) Miscellaneou s no charge Diagnosis: Type 2 diabetes mellitus with hyperglycemia[ICD10: E11.65] Shae Man MD, [facility] CPT-4: 89400 06/25/2017 ([id number]) 29818 EST. P ATIENT, LEVEL IV Diagnosis: Type 2 diabetes mellitus with hyperglycemia[ICD10: E11.65] Maude Man MD, [facility] CPT-4: 64029 06/11/2017 ([id number]) 38861 EST. P ATIENT, LEVEL IV Diagnosis: Type 2 diabetes mellitus with hyperglycemia[ICD10: E11.65] Diagnosis: Essential (primary) hypertension[ICD10: I10] Diagnosis: Acute recurrent maxillary sinusitis[ICD10: J01.01] Ana Man MD, [facility] CPT-4: 17969 06/04/2017 OFFICE VISIT, NEW - LEVEL 4 Diagnosis: Left lower quadrant pain[ICD10: R10.32] Diagnosis: Other ulcerative colitis with unspecified complications[ICD10: K51.819] Diagnosis: Essential (primary) hypertension[ICD10: I10] Diagnosis: Type 2 diabetes mellitus without complications[ICD10: E11.9] Diagnosis: Major depressive disorder, recurrent, in partial remission[ICD10: F33.41] Diagnosis: Melena[ICD10: K92.1] [facility] CPT-4: 39013 04/24/2017 Plan of Care Planned Activity Notes [...] peripheral edema. 05/30/2018 Appointment: Shae Guerrero WPtel: [address] [place], [place] [address] (30 min) [facility] 05/30/2018 Patient Education: Patient Medication Summary Completed 05/30/2018 Care Plan: Referral Order SNOMED-CT : [id number] Pending 05/24/2018 Visit Plan: Diabetes Mellitus - [...] not improve. 05/23/2018 Appointment: Shae Guerrero WPtel: [facility]5 [facility] (30 min) Complex 05/23/2018 Patient Education: Patient Medication Summary Completed 05/23/2018 Patient Education: Diabetes Completed 05/23/2018 Care Plan: Urine Culture Pending 05/23/2018 Appointment: Ana Burrell WPtel: [facility]5 [phone] [place] (30 min) Complex 05/20/2018 Care Plan: CT HEAD/BRAIN W/O DYE LOINC : 16450-1 Pending 05/08/2018 Visit Plan: Abdominal pain -UA [...] adequate hydration 05/06/2018 Appointment: Ana Burrell WPtel: [facility]6 [phone] [place] (15 min) Moderate 05/06/2018 Patient Education: [...] control. 04/30/2018 [facility]ment[phone] [facility] [facility] 04/30/2018 Patient Education: Patient [...] worse 03/19/2018 Appointment: Ana Burrell WPtel: [phone] [phone] (30 min) Complex 03/19/2018 Patient Education: Patient [...] appt 02/01/2018 Appointment: [facility] [phone] [phone] [place] (30 min) Complex 02/01/2018 Patient Education: Patient Medication Summary Completed 02/01/2018 Patient Education: Back Pain Completed 02/01/2018 Patient Education: Hypertension Completed 02/01/2018 [facility]ment: [phone] [facility] ([place] min) Moderate 01/24/2018 Referral: Megha Garcia Referral Completed 01/15/2018 Visit Plan: Diabetes Mellitus - [facility] ontrolled - per recent FSBS reports. I [...] made. 12/13/2017 Appointment: Maude [facility] [phone] [facility] (15 min) Moderate 12/13/2017 Patient Education: Patient Medication Summary Completed 12/13/2017 Patient Education: Diabetes Completed 12/13/2017 Patient Education: Hypertension Completed 12/13/2017 Care Plan: Referral Order SNOMED-CT : [id number] Pending 12/13/2017 Appointment: Maude Man [facility]Ptel[facility] [phone] [facility] [place] [place] (15 min) Moderate 11/26/2017 Visit Plan: Diabetes [...] through 09/18/2017 Appointment: Maude [facility] [phone] [facility] [place] (15 min) Moderate 09/18/2017 Patient Education: Patient Medication Summary Completed 09/18/2017 Referral: External, Ordering Provider Patient informed. Referral info faxed. Completed 09/17/2017 Appointment: Maude Man [facility]Ptel[facility] [phone] [facility] [place] [place] (15 min) Moderate 09/06/2017 Visit Plan: [...] Dr. Gracia. 08/23/2017 Appointment: Maude Man WPtel: [facility]5 [facility] (15 min) Moderate 08/23/2017 Patient Education: Patient Medication Summary Completed 08/23/2017 Care Plan: Comp Metabolic Cancelled 08/23/2017 Care Plan: Cbc With Differential Cancelled 08/23/2017 Care Plan: %Hba1C LOIN C : 49083-2 Cancelled 08/23/2017 Care Plan: Magnesium Cancelled 08/23/2017 Care Plan: Referral Order SNOMED-CT : [id number] Pending 08/23/2017 Appointment: Maude Man WPtel: [facility] [place] (15 min) Moderate 08/13/2017 Visit Plan: CGM removed - pt tolera jomar procedure well - no changes at this time. 06/25/2017 Patient Education: Patient Medication Summary Completed 06/25/2017 Appointment: Maude Man WPtel: [facility] [place] (15 min) Moderate 06/21/2017 Visit Plan: Continuous [...] glucose control. 06/20/2017 Appointment: Shae Guerrero [facility]Ptel[facility] ([facility] Complex 06/20/2017 Patient Education: Patient Medication Summary Completed 06/20/2017 Visit Plan: Diabetes Mellitus - [facility] [...] Summary Completed 06/04/2017 Appointment: Ana Burrell WPtel: [phone] (30 min) Complex 05/31/2017 Appointment: Ana Burrell WPtel: [phone] (30 min) Complex 05/29/2017 Appointment: Ana Burrell WPtel: [phone] (30 min) Complex 05/24/2017 Visit Plan: Left [...] current medications. 04/24/2017 Appointment: Ana Burrell WPtel: [address] [place], [place] [phone] New Patient 04/24/2017 Patient Education: Patient Medication Summary Completed 04/24/2017 Appointment: Shae Guerrero WPtel: [address] [place], [place] [phone] New Patient 04/20/2017 Referral: External, Ordering Provider [...]
--- OUTSIDE RECORDS SUMMARY | 2019-01-29 06:07 | XMS REPORT | CCD ---
Author Author Baylee Burrell Organization Maude Man MD, [facility] Address [address] [place] [address] Phone Care Team Providers Care Hotel Superintendent Name Role Phone PP Unavailable CCM Unavailable Summary Purpose Interface Exchange Insurance Providers Payer name Policy type / Coverage type Covered republican ID Effective Begin Date Effective End Date WPS Medicare Part B Blue Cross/Blue Shield [id number] Unknown Blue Cross Blue Shield [facility] [place] e Cross/Blue Shield [id number] Un known Blue Cross/Blue Shield [id number] Unknown Family history Sister Diagnosis Age At [...] 1 04/24/2017 Employment Unknown [employer] de[employer] 04/24/[address]: 670635608 Never smoker 04/24/[address]: 931867247 Never drinks alcohol 04/24/2017 Allergies, Adverse Reactions, Alerts Substance Reaction Codes Entered Date Inactivated Date Status Levaquin RxNorm: 95121 04/24/2017 No Inactive Date Active Past Medical [...] Fill Instructions Lasix 20 mg tablet RxNorm: 507233 Tablet(s) PO Lasix 40mg daily x 3 days, then 20mg daily as needed for swelling or weight gain over 3 lbs 05/30/2018 No Stop Date Active potassium chloride E R 10 mEq tablet,extended release RxNorm: 823619 Tablet(s) potassium 20meq daily x 3 days then 10meq daily ONLY when taking the lasix. 05/30/2018 No Stop Date Active Augmentin 500 mg-125 mg tablet RxNorm: 892018 1 Tablet(s) PO TID 05/30/2018 06/08/2018 Inactive tramadol 50 mg tablet RxNorm: 173872 1 Tablet(s) PO Q6 PRN 05/29/2018 No Stop Date Active Basaglar KwikPen U-1 00 Insulin 100 unit/mL (3 mL) subcutaneous RxNorm: 1131980 50 Unit(s) SQ daily 05/29/2018 12/24/2018 Active qty sufficient for 1 month potassium chloride E R 20 mEq tablet,extended release RxNorm: 169822 1 Tablet(s) PO daily 05/23/2018 05/25/2018 Inactive Lasix 40 mg tablet RxNorm: 292418 1 Tablet(s) PO daily 05/23/2018 05/25/2018 Inactive Keflex 500 mg capsule RxNorm: 160899 1 Capsule(s) PO TID 05/23/2018 05/29/2018 Inactive Zofran 4 mg tablet RxNorm: 905817 1 Tablet(s) PO Q6 PRN 05/06/2018 No Stop Date Active tramadol 50 mg tablet RxNorm: 054209 1 Tablet(s) PO Q6 PRN 05/06/2018 05/28/2018 Inactive Basaglar KwikPen U-1 00 Insulin 100 unit/mL (3 mL) subcutaneous RxNorm: 0627476 46 Unit(s) SQ daily 05/03/2018 05/28/2018 Inactive qty sufficient for 1 month doxycycline hyclate 100 mg tablet RxNorm: 9876150 1 Tablet(s) PO BID 03/19/2018 03/25/2018 Inactive mupirocin 2 % topica l ointment RxNorm: 353814 1 Application TOP BID 03/19/2018 03/28/2018 Inactive Basaglar KwikPen U-1 00 Insulin 100 unit/mL (3 mL) subcutaneous RxNorm: 2568298 45 Unit(s) SQ daily 03/06/2018 05/02/2018 Inactive Basaglar KwikPen U-1 00 Insulin 100 unit/mL (3 mL) subcutaneous RxNorm: 7052066 45 Unit(s) SQ daily 03/06/2018 03/05/2018 Inactive Toujeo SoloStar U-30 0 Insulin 300 unit/mL (1.5 mL) subcutaneous pen RxNorm: 3934228 Unit(s) INJECT 45 UNITS UNDER THE SKIN DAILY 02/22/2018 03/05/2018 Inactive 30 d ay supply Toujeo SoloStar U-30 0 Insulin 300 unit/mL (1.5 mL) subcutaneous pen RxNorm: 4452767 INJECT 40 UNITS UNDER THE SKIN DAILY 02/21/2018 02/21/2018 Inactive Keflex 500 mg capsule RxNorm: 290253 1 Capsule(s) PO TID 02/01/2018 02/07/2018 Inactive Toujeo SoloStar U-30 0 Insulin 300 unit/mL (1.5 mL) subcutaneous pen RxNorm: 7467241 45 Unit(s) SQ daily 12/26/2017 No Stop Date Active atorvastatin 40 mg t ablet RxNorm: 495405 Tablet(s) TAKE ONE-REA LF TABLET BY MOUTH EVERY EVENING 12/26/2017 No Stop Date Active Restasis 0.05 % eye drops in a dropperette RxNorm: 364499 INSTILL ONE DROP IN E ACH EYE EVERY 12 HOURS 12/24/2017 04/22/2018 Inactive atorvastatin 40 mg t ablet RxNorm: 692300 TAKE ONE TABLET BY MO UTH EVERY EVENING 12/17/2017 12/25/2017 In active venlafaxine ER 150 m g tablet,extended release 24 hr RxNorm: 106182 TAKE ONE CAPSULE BY MOUTH DAILY 10/11/2017 07/07/2018 Active metoprolol succinate ER 50 mg tablet,extended release 24 hr RxNorm: 222369 TAKE ONE TABLET BY MOUTH DAILY 10/11/2017 07/07/2018 Active atorvastatin 40 mg t ablet RxNorm: 262798 TAKE ONE TABLET BY MO UTH EVERY EVENING 10/11/2017 12/16/2017 In active metoprolol succinate ER 25 mg tablet,extended release 24 hr RxNorm: 637761 1/2 Tablet(s) PO daily 09/18/2017 03/16/2018 Inactive metronidazole 500 mg tablet RxNorm: 490290 1 Tablet(s) PO TID 08/23/2017 09/01/2017 Inactive Diflucan 150 mg tablet RxNorm: 279604 1 Tablet(s) PO daily 08/23/2017 09/01/2017 Inactive atorvastatin 40 mg t ablet RxNorm: 141361 1 Tablet(s) PO QPM 08/02/2017 10/10/2017 Inactive Toujeo SoloStar U-30 0 Insulin 300 unit/mL (1.5 mL) subcutaneous pen RxNorm: 7275637 40 Unit(s) SQ daily 07/30/2017 12/25/2017 Inactive Novofine 32 32 gauge x 1/4" needle RxNorm: USE TO TEST BLOOD SUGAR ONC E DAILY 07/26/2017 04/16/2019 Ac tive Toujeo SoloStar U-30 0 Insulin 300 unit/mL (1.5 mL) subcutaneous pen RxNorm: 0890998 INJECT 24 UNITS UNDER THE SKIN EVERY EVENING 07/26/2017 07/29/2017 Inactive Apidra U-100 Insulin 100 unit/mL subcutaneous solution RxNorm: 754578 5 Unit(s) SQ AC 06/06/2017 06/06/2017 Inactive start with 5 units with breakfast -call with blood sugars in 1 week Keflex 500 mg capsule RxNorm: 587174 1 Capsule(s) PO TID 06/04/2017 06/10/2017 Inactive Apidra U-100 Insulin 100 unit/mL subcutaneous solution RxNorm: 902429 5 Unit(s) SQ AC 06/04/2017 06/05/2017 Inactive start with 5 units with breakfast -call with blood sugars in 1 week Restasis 0.05 % eye drops in a dropperette RxNorm: 214974 1 gtts ophthalmic (ey e) Q12H 06/04/2017 07/03/2017 Inactive Toujeo SoloStar U-30 0 Insulin 300 unit/mL (1.5 mL) subcutaneous pen RxNorm: 8391324 28 Unit(s) SQ QPM x1 week, then 32 units daily. 04/26/2017 08/28/2017 Inactive Restasis MultiDose 0 .05 % eye drops RxNorm: 399971 1 Drop(s) ophthalmic (eye) daily - BID 04/24/2017 No Stop Date Active cyanocobalamin (vit B-12) 1,000 mcg/mL injection solution RxNorm: 250894 1 Milliliter(s) Inj QW -BIW 04/24/2017 07/22/2017 Inactive disp with syringes please Toujeo SoloStar U-30 0 Insulin 300 unit/mL (1.5 mL) subcutaneous pen RxNorm: 8337073 24 Unit(s) SQ QPM 04/24/2017 04/23/2017 Inactive Novofine 32 32 gauge x 1/4" needle RxNorm: 1 test Miscellaneous daily 04/24/2017 07/22/2017 In active E11.65 use with westley venlafaxine ER 150 m g tablet,extended release 24 hr RxNorm: 054657 1 Tablet(s) PO daily 04/24/2017 10/10/2017 Inactive cyanocobalamin (vit B-12) 1,000 mcg/mL injection solution RxNorm: 463287 1 Milliliter(s) Inj QW -BIW 04/24/2017 04/23/2017 Inactive metoprolol succinate ER 50 mg tablet,extended release 24 hr RxNorm: 259131 1 Tablet(s) PO daily 04/24/2017 09/17/2017 Inactive Toujeo SoloStar U-30 0 Insulin 300 unit/mL (1.5 mL) subcutaneous pen RxNorm: 7920080 24 Unit(s) SQ QPM 04/24/2017 04/25/2017 Inactive Centrum Silver tablet RxNorm: 1 Tablet(s) PO daily No Start Date Active Novolog U-100 Insuli n aspart 100 unit/mL subcutaneous solution RxNorm: 230455 5 Unit(s) SQ AC No Start Date Active magnesium 250 mg tablet RxNorm: 1 Tablet(s) PO as needed No Start Date Active Probiotic Blend oral RxNorm: 253428 oral No Start Date Active Calcium 600 + D(3) 6 00 mg (1,500 mg)-400 unit tablet RxNorm: 838944 1 Tablet(s) PO as needed No Start Date Active atorvastatin 40 mg t ablet RxNorm: 523261 1 Tablet(s) PO QPM No Start Date 08/01/2017 Inactive Novofine 32 32 gauge x 1/4" needle RxNorm: 1 Miscellaneous daily No Start Date 04/23/2017 Inactive cyanocobalamin (vit B-12) 1,000 mcg/mL injection solution RxNorm: 698891 1 Milliliter(s) Inj No Start Date 04/23/2017 Inactive metoprolol succinate ER 50 mg tablet,extended release 24 hr RxNorm: 069611 1 Tablet(s) PO daily No Start Date 04/23/2017 Inactive lisinopril 5 mg tablet RxNorm: 689839 1 Tablet(s) PO QPM No Start Date 04/23/2017 Inactive Restasis MultiDose 0 .05 % eye drops RxNorm: 888865 Drop(s) ophthalmic (e ye) No Start Date 04/23/2017 Inactive venlafaxine ER 150 m g capsule,extended release 24 hr RxNorm: 519111 1 Capsule(s) PO daily No Start Date 04/23/2017 Inactive Toudaphneo SoloStar U-30 0 Insulin subcutaneous RxNorm: subcutaneous [...] Code Item Item Code Result Date Lipase Npc666 LIPASE 26 U/L 05/06/2018 Comp Metabolic Ejv876 NA 140 mEq/L 05/06/2018 Comp Metabolic Asc408 K 4.5 mEq/L 05/06/2018 Comp Metabolic Bvg434 CL 109 mEq/L 05/06/2018 Comp Metabolic Vey704 CO2 24.0 mEq/L 05/06/2018 Comp Metabolic Myn343 AN ION GAP 12 05/06/2018 Comp Metabolic Aqc774 GL UCOSE 341 mg/dL 05/06/2018 Comp Metabolic Xsd149 Cr eat 1.6 mg/dL 05/06/2018 Comp Metabolic Niq859 eG FR 34 ml/min/1.73m2 05/06 Comp Metabolic Qqg071 BUN 39 mg/dL 05/06/2018 Comp Metabolic Syt683 B/ C Ratio 24.7 Ratio 05/06/2018 Comp Metabolic Rlu638 CA LCIUM 9.1 mg/dL 05/06/2018 Comp Metabolic Rqr712 AL K PHOS 61 U/L 05/06/2018 Comp Metabolic Iqq448 T(SGOT) 21 U/L 05/06/2018 Comp Metabolic Nwy638 AL T(SGPT) 28 U/L 05/06/2018 Comp Metabolic Eyc087 BI LI T 0.3 mg/dL 05/06/2018 Comp Metabolic Pmz711 AL BUMIN 3.8 g/dL 05/06/2018 Comp Metabolic Spw077 TP RO 6.1 g/dL 05/06/2018 Comp Metabolic Etc954 GL OB 2.4 g/dL 05/06/2018 Comp Metabolic Msb495 A/ G Ratio 1.6 Ratio 05/06/2018 Comp Metabolic Xpj201 Os mo 302 mOsmo 05/06/2018 Amylase Ord34 AMYLASE 48 U/L 05/06/2018 Lipid Ord30 CHOL 171 mg/dL 12/13/2017 Lipid Ord30 HDL 64.0 mg/dl 12/13/2017 Lipid Ord30 TRIG 89 mg/dL 12/13/2017 Lipid Ord30 LDL 89 mg/dL 12/13/2017 Lipid Ord30 C/HDL 2.7 Ratio 12/13/2017 Comp Metabolic Fnb279 NA 140 mEq/L 12/13/2017 Comp Metabolic Vyn645 K 4.4 mEq/L 12/13/2017 Comp Metabolic Hur783 CL 107 mEq/L 12/13/2017 Comp Metabolic Lyz473 CO2 23.0 mEq/L 12/13/2017 Comp Metabolic Lsn014 AN ION GAP 14 12/13/2017 Comp Metabolic Gee723 GL UCOSE 179 mg/dL 12/13/2017 Comp Metabolic Brg056 Cr eat 1.7 mg/dL 12/13/2017 Comp Metabolic Viq278 eG FR 31 ml/min/1.73m2 12/13 Comp Metabolic Ytv460 BUN 40 mg/dL 12/13/2017 Comp Metabolic Ukx864 B/ C Ratio 23.3 Ratio 12/13/2017 Comp Metabolic Bhu800 CA LCIUM 10.3 mg/dL 12/13/2017 Comp Metabolic Ucx219 AL K PHOS 54 U/L 12/13/2017 Comp Metabolic Uzp722 T(SGOT) 41 U/L 12/13/2017 Comp Metabolic Htf165 AL T(SGPT) 44 U/L 12/13/2017 Comp Metabolic Dyt095 BI LI T 0.4 mg/dL 12/13/2017 Comp Metabolic Vou406 AL BUMIN 4.9 g/dL 12/13/2017 Comp Metabolic Bqe704 TP RO 7.7 g/dL 12/13/2017 Comp Metabolic Paq732 GL OB 2.8 g/dL 12/13/2017 Comp Metabolic Idc469 A/ G Ratio 1.8 Ratio 12/13/2017 Comp Metabolic Ztu387 Os mo 294 mOsmo 12/13/2017 Tsh Ord6 TSH (3rd IS) 2.56 uIU/mL 12/13/2017 %Hba1C Tid133 % HbA1c 65044-6 9.6 % 12/13/2017 %Hba1C Lbs633 Gluc Ave 229 mg/dL 12/13/2017 Cbc With [...] 32.0 pg 12/13/2017 Cbc With Differential Ord2 [place]% 8.0 % 12/13/2017 Cbc With Differential Ord2 [...] 1.44 K/ul 12/13/2017 Cbc With Differential Ord2 [place] ABS# 0.5 K/ul 12/13/2017 Cbc With Differential Ord2 Eos ABS# 0.1 K/ul 12/13/2017 Cbc With Differential Ord2 Baso ABS# 0.0 K/ul 12/13/2017 %Hba1C Fqq250 % HbA1c 12403-9 13.1 % 04/24/2017 %Hba1C Rrh586 Gluc Ave 329 mg/dL 04/24/2017 Cbc With [...] 32.0 pg 04/24/2017 Cbc With Differential Ord2 [place]% 11.0 % 04/24/2017 Cbc With Differential Ord2 [...] 2.39 K/ul 04/24/2017 Cbc With Differential Ord2 [place] ABS# 0.8 K/ul 04/24/2017 Cbc With Differential Ord2 Eos ABS# 0.1 K/ul 04/24/2017 Cbc With Differential Ord2 Baso ABS# 0.0 K/ul 04/24/2017 Comp Metabolic Wjt117 NA 142 mEq/L 04/24/2017 Comp Metabolic Vfs508 K 3.8 mEq/L 04/24/2017 Comp Metabolic Wmt306 CL 105 mEq/L 04/24/2017 Comp Metabolic Gzq806 CO2 27.0 mEq/L 04/24/2017 Comp Metabolic Wbx963 AN ION GAP 14 04/24/2017 Comp Metabolic Viq430 GL UCOSE 203 mg/dL 04/24/2017 Comp Metabolic Xga047 Cr eat 1.9 mg/dL 04/24/2017 Comp Metabolic Qly794 eG FR 28 ml/min/1.73m2 04/24 Comp Metabolic Jnz664 BUN 26 mg/dL 04/24/2017 Comp Metabolic Wpz249 B/ C Ratio 13.6 Ratio 04/24/2017 Comp Metabolic Apo139 CA LCIUM 9.9 mg/dL 04/24/2017 Comp Metabolic Ymi005 AL K PHOS 79 U/L 04/24/2017 Comp Metabolic Yth170 T(SGOT) 25 U/L 04/24/2017 Comp Metabolic Gwj363 AL T(SGPT) 36 U/L 04/24/2017 Comp Metabolic Fwd230 BI LI T 0.3 mg/dL 04/24/2017 Comp Metabolic Lnc496 AL BUMIN 4.5 g/dL 04/24/2017 Comp Metabolic Zkj087 TP RO 6.9 g/dL 04/24/2017 Comp Metabolic Dzl346 GL OB 2.5 g/dL 04/24/2017 Comp Metabolic Jeu895 A/ G Ratio 1.8 Ratio 04/24/2017 Comp Metabolic Lvg546 Os mo 294 mOsmo 04/24/2017 Review of [...] Date URINALYSIS NONAUTO W /O SCOPE CPT-4: 38464 05/06/2018 GLUC MONITOR CONT PH YS I&R CPT-4: 33534 09/18/2017 GLUCOSE MONITORING CONT CPT-4: 25541 06/20/2017 Vital Signs Date Vital 05/30/2018 Blood Pressure 1: 144/64 Code: 8480-6 BMI: 22.4 Code: 27532-2 Heart Rate 1: 89 bpm Height: 5'6" SpO2: 98% Temperature: 37.2 (C ) / 98.9 (F) Weight: 139 lbs 05/23/2018 Blood Pressure 1: 146/66 Code: 8480-6 BMI: 22.4 Code: 60866-5 Heart Rate 1: 85 bpm Height: 5'6" SpO2: 97% Weight: 139 lbs 05/06/2018 Blood Pressure 1: 128/86 Code: 8480-6 BMI: 20.8 Code: 60811-2 Heart Rate 1: 96 bpm Height: 5'6" SpO2: 96% Weight: 129 lbs 04/30/2018 Blood Pressure 1: 124/66 Code: 8480-6 Heart Rate 1: 87 bpm Height: 5'6" SpO2: 98% 03/19/2018 Blood Pressure 1: 142/84 Code: 8480-6 BMI: 20.5 Code: 03143-4 Heart Rate 1: 88 bpm Height: 5'6" SpO2: 98% Temperature: 36.6 (C ) / 97.9 (F) Weight: 129 lbs 02/01/2018 Blood Pressure 1: 110/52 Code: 8480-6 BMI: 19.9 Code: 25571-5 Height: 5'6" Weight: 125 lbs 12/13/2017 Blood Pressure 1: 140/80 Code: 8480-6 BMI: 19.9 Code: 50893-0 Heart Rate 1: 72 bpm Height: 5'6" SpO2: 95% Weight: 125 lbs 09/18/2017 Blood Pressure 1: 126/82 Code: 8480-6 BMI: 20.0 Code: 06371-1 Heart Rate 1: 103 bpm Height: 5'6" SpO2: 98% Weight: 126 lbs 08/23/2017 Blood Pressure 1: 118/62 Code: 8480-6 Heart Rate 1: 110 bpm Height: 5'6" SpO2: 95% Temperature: 37.1 (C ) / 98.7 (F) 06/20/2017 Heigh t: Weight: 06/11/2017 Blood Pressure 1: 142/76 Code: 8480-6 BMI: 21.3 Code: 95558-0 Heart Rate 1: 102 bpm Height: 5'6" SpO2: 97% Weight: 134 lbs 06/04/2017 Blood Pressure 1: 160/84 Code: 8480-6 BMI: 20.8 Code: 87885-2 Heart Rate 1: 87 bpm Height: 5'6" SpO2: 97% Weight: 131 lbs 04/24/2017 Blood Pressure 1: 132/80 Code: 8480-6 BMI: 20.8 Code: 34906-1 Heart Rate 1: 84 bpm Height: 5'6" [...] Encounters Encounter Performer Loca tion Codes Date ([id number]) [id number] EST. P ATIENT, LEVEL IV Diagnosis: Acute laryngopharyngitis[ICD10: J06.0] Diagnosis: Other allergic rhinitis[ICD10: J30.89] Diagnosis: Localized edema[ICD10: R60.0] Shae Man MD, [facility] CPT-4: 38880 05/30/2018 40210 EST. PATIENT, LEVEL III Diagnosis: Dysuria[ICD10: R30.0] Diagnosis: Type 2 diabetes mellitus with hyperglycemia[ICD10: E11.65] Diagnosis: Localized edema[ICD10: R60.0] Shae Man MD, [facility] CPT-4: 64080 05/23/2018 ([id number]) 63577 EST. P ATIENT, LEVEL IV Diagnosis: Low back pain[ICD10: M54.5] Diagnosis: Left upper quadrant pain[ICD10: R10.12] Diagnosis: Pain in left hip[ICD10: M25.552] Diagnosis: Pain in left shoulder[ICD10: M25.512] Diagnosis: Repeated falls[ICD10: R29.6] Diagnosis: Unsteadiness on feet[ICD10: R26.81] Diagnosis: Chronic kidney disease, stage 3 (moderate)[ICD10: N18.3] Ana Man MD, [facility] CPT-4: 49371 05/06/2018 86429 EST. PATIENT, LEVEL III Diagnosis: Low back pain[ICD10: M54.5] Diagnosis: Pain in left hip[ICD10: M25.552] Diagnosis: Repeated falls[ICD10: R29.6] Diagnosis: Unsteadiness on feet[ICD10: R26.81] Diagnosis: Headache[ICD10: R51] Diagnosis: Type 2 diabetes mellitus with hyperglycemia[ICD10: E11.65] Shae Man MD, [facility] CPT-4: 33172 04/30/2018 ([id number]) 90236 EST. P ATIENT, LEVEL III Diagnosis: Acute recurrent maxillary sinusitis[ICD10: J01.01] Diagnosis: Rash and other nonspecific skin eruption[ICD10: R21] [facility] CPT-4: 18869 03/19/2018 ([id number]) 69726 EST. P ATIENT, LEVEL IV Diagnosis: Acute recurrent maxillary sinusitis[ICD10: J01.01] Diagnosis: Low back pain[ICD10: M54.5] Diagnosis: Unsteadiness on feet[ICD10: R26.81] Diagnosis: Essential (primary) hypertension[ICD10: I10] [facility] CPT-4: 50056 02/01/2018 ([id number]) 19155 EST. P ATIENT, LEVEL IV Diagnosis: Type 2 diabetes mellitus with hyperglycemia[ICD10: E11.65] Diagnosis: Essential (primary) hypertension[ICD10: I10] Diagnosis: Other fatigue[ICD10: R53.83] Maude Man MD, [facility] CPT-4: 73985 12/13/2017 ([id number]) 66902 EST. P ATIENT, LEVEL IV Diagnosis: Type 2 diabetes mellitus with hyperglycemia[ICD10: E11.65] Diagnosis: Essential (primary) hypertension[ICD10: I10] Diagnosis: Major depressive disorder, recurrent, in partial remission[ICD10: F33.41] Maude Man MD, [facility] CPT-4: 03926 09/18/2017 ([id number]) 13513 EST. P ATIENT, LEVEL IV Diagnosis: Pouchitis[ICD10: K91.850] Diagnosis: Other fatigue[ICD10: R53.83] Diagnosis: Type 2 diabetes mellitus with hyperglycemia[ICD10: E11.65] Diagnosis: Essential (primary) hypertension[ICD10: I10] Diagnosis: Orthostatic hypotension[ICD10: I95.1] Maude Man MD, [facility] CPT-4: 82728 08/23/2017 ([id number]) Miscellaneou s no charge Diagnosis: Type 2 diabetes mellitus with hyperglycemia[ICD10: E11.65] Shae Man MD, [facility] CPT-4: 81890 06/25/2017 ([id number]) 64131 EST. P ATIENT, LEVEL IV Diagnosis: Type 2 diabetes mellitus with hyperglycemia[ICD10: E11.65] Maude Man MD, [facility] CPT-4: 87236 06/11/2017 ([id number]) 70080 EST. P ATIENT, LEVEL IV Diagnosis: Type 2 diabetes mellitus with hyperglycemia[ICD10: E11.65] Diagnosis: Essential (primary) hypertension[ICD10: I10] Diagnosis: Acute recurrent maxillary sinusitis[ICD10: J01.01] Ana Man MD, [facility] CPT-4: 19577 06/04/2017 OFFICE VISIT, NEW - LEVEL 4 Diagnosis: Left lower quadrant pain[ICD10: R10.32] Diagnosis: Other ulcerative colitis with unspecified complications[ICD10: K51.819] Diagnosis: Essential (primary) hypertension[ICD10: I10] Diagnosis: Type 2 diabetes mellitus without complications[ICD10: E11.9] Diagnosis: Major depressive disorder, recurrent, in partial remission[ICD10: F33.41] Diagnosis: Melena[ICD10: K92.1] [facility] CPT-4: 35175 04/24/2017 Plan of Care Planned Activity Notes [...] peripheral edema. 05/30/2018 Appointment: Shae Guerrero WPtel: [address] [place], [place] [address] (30 min) [facility] 05/30/2018 Patient Education: Patient Medication Summary Completed 05/30/2018 Care Plan: Referral Order SNOMED-CT : 990260472 Pending 05/24/2018 Visit Plan: Diabetes Mellitus - [...] not improve. 05/23/2018 Appointment: Shae Guerrero WPtel: [facility] (30 min) Complex 05/23/2018 Patient Education: Patient Medication Summary Completed 05/23/2018 Patient Education: Diabetes Completed 05/23/2018 Care Plan: Urine Culture Pending 05/23/2018 Appointment: Ana Burrell WPtel: [phone] [place] (30 min) Complex 05/20/2018 Care Plan: CT HEAD/BRAIN W/O DYE LOINC : 09610-0 Pending 05/08/2018 Visit Plan: Abdominal pain -UA [...] adequate hydration 05/06/2018 Appointment: Ana Burrell WPtel: [phone] [place] (15 min) Moderate 05/06/2018 Patient Education: [...] control. 04/30/2018 Appointment: Shae Guerrero WPtel: [phone] [facility] (30 min) Complex 04/30/2018 Patient Education: Patient [...] worse 03/19/2018 Appointment: Ana Burrell WPtel: [phone] [phone] (30 min) Complex 03/19/2018 Patient Education: Patient [...] appt 02/01/2018 Appointment: Ana Burrell WPtel: [phone] [phone] (30 min) Complex 02/01/2018 Patient Education: Patient Medication Summary Completed 02/01/2018 Patient Education: Back Pain Completed 02/01/2018 Patient Education: Hypertension Completed 02/01/2018 [phone] [facility] ([facility]) Moderate 01/24/2018 Referral: Megha Garcia [...] made. 12/13/2017 Appointment[facility] [phone] [facility] (15 min) Moderate 12/13/2017 Patient Education: Patient Medication Summary Completed 12/13/2017 Patient Education: Diabetes Completed 12/13/2017 Patient Education: Hypertension Completed 12/13/2017 Care Plan: Referral Order SNOMED-CT : [id number] Pending 12/13/2017 Appointment: [facility]ude [facility]el[facility] [phone] [facility] [place] (15 min) Moderate 11/26/2017 Visit Plan: [...] through 09/18/2017 Appointment: [facility]ude [facility]el[facility] [phone] [facility] [place] (15 min) Moderate 09/18/2017 Patient Education: Patient Medication Summary Completed 09/18/2017 Referral: External, Ordering Provider Patient informed. Referral info faxed. Completed 09/17/2017 Appointment: Maude Man [facility]Ptel[facility] [phone] [facility] [place] (15 min) Moderate 09/06/2017 Visit Plan: [...] Dr. Gracia. 08/23/2017 Appointment: Maude Man WPtel: [facility] (15 min) Moderate 08/23/2017 Patient Education: Patient Medication Summary Completed 08/23/2017 Care Plan: Comp Metabolic Cancelled 08/23/2017 Care Plan: Cbc With Differential Cancelled 08/23/2017 Care Plan: %Hba1C LOIN C : 28203-8 Cancelled 08/23/2017 Care Plan: Magnesium Cancelled 08/23/2017 Care Plan: Referral Order SNOMED-CT : [id number] Pending 08/23/2017 Appointment: Maude Man WPtel: [facility] [place] (15 min) Moderate 08/13/2017 Visit Plan: CGM removed - pt tolera jomar procedure well - no changes at this time. 06/25/2017 Patient Education: Patient Medication Summary Completed 06/25/2017 Appointment: Maude Man WPtel: [facility] [place] (15 min) Moderate 06/21/2017 Visit Plan: [...] glucose control. 06/20/2017 Appointment: Shae Guerrero WPtel: [facility] ([facility] min) [facility] 06/20/2017 Patient Education: Patient Medication Summary Completed [...] Summary Completed 06/04/2017 Appointment: Ana Burrell WPtel: [phone] [phone] (30 min) Complex 05/31/2017 Appointment: Ana Burrell WPtel: [phone] (30 min) Complex 05/29/2017 Appointment: Ana Burrell WPtel: [phone] (30 min) Complex 05/24/2017 Visit Plan: Left [...] current medications. 04/24/2017 Appointment: Ana Burrell WPtel: [address] [place], [place] [phone] [address] New Patient 04/24/2017 Patient Education: Patient Medication Summary Completed 04/24/2017 Appointment: Shae Guerrero WPtel: [address] [place], [place] [phone] New Patient 04/20/2017 Referral: External, Ordering Provider [...]
--- OUTSIDE RECORDS SUMMARY | 2019-01-29 06:07 | XMS REPORT | CCD ---
Author Author Baylee Burrell Organization Maude Man MD, [facility] Address [address] [place] [address] Phone Care Team Providers Care Alberene Stone Setter Name Role Phone PP Unavailable CCM Unavailable Summary Purpose Interface Exchange Insurance Providers Payer name Policy type / Coverage type Covered constitution party ID Effective Begin Date Effective End Date WPS Medicare Part B Blue Cross/Blue Shield [id number] Unknown Blue Cross Blue Shield [facility] [place] e Cross/Blue Shield [id number] Un known Blue Cross/Blue Shield [id number] Unknown Family history Sister Diagnosis Age At [...] 1 04/24/2017 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/[address]: 109598884 Never smoker 04/24/[address]: 943619562 Never drinks alcohol 04/24/2017 Allergies, Adverse Reactions, Alerts Substance Reaction Codes Entered Date Inactivated Date Status Levaquin RxNorm: 04301 04/24/2017 No Inactive Date Active Past Medical [...] Fill Instructions Lasix 20 mg tablet RxNorm: 429541 Tablet(s) PO Lasix 40mg daily x 3 days, then 20mg daily as needed for swelling or weight gain over 3 lbs 05/30/2018 No Stop Date Active potassium chloride E R 10 mEq tablet,extended release RxNorm: 641866 Tablet(s) potassium 20meq daily x 3 days then 10meq daily ONLY when taking the lasix. 05/30/2018 No Stop Date Active Augmentin 500 mg-125 mg tablet RxNorm: 851010 1 Tablet(s) PO TID 05/30/2018 06/08/2018 Inactive tramadol 50 mg tablet RxNorm: 310229 1 Tablet(s) PO Q6 PRN 05/29/2018 No Stop Date Active Basaglar KwikPen U-1 00 Insulin 100 unit/mL (3 mL) subcutaneous RxNorm: 8880926 50 Unit(s) SQ daily 05/29/2018 12/24/2018 Active qty sufficient for 1 month potassium chloride E R 20 mEq tablet,extended release RxNorm: 861926 1 Tablet(s) PO daily 05/23/2018 05/25/2018 Inactive Lasix 40 mg tablet RxNorm: 886044 1 Tablet(s) PO daily 05/23/2018 05/25/2018 Inactive Keflex 500 mg capsule RxNorm: 050858 1 Capsule(s) PO TID 05/23/2018 05/29/2018 Inactive Zofran 4 mg tablet RxNorm: 034196 1 Tablet(s) PO Q6 PRN 05/06/2018 No Stop Date Active tramadol 50 mg tablet RxNorm: 538505 1 Tablet(s) PO Q6 PRN 05/06/2018 05/28/2018 Inactive Basaglar KwikPen U-1 00 Insulin 100 unit/mL (3 mL) subcutaneous RxNorm: 0799289 46 Unit(s) SQ daily 05/03/2018 05/28/2018 Inactive qty sufficient for 1 month doxycycline hyclate 100 mg tablet RxNorm: 0154035 1 Tablet(s) PO BID 03/19/2018 03/25/2018 Inactive mupirocin 2 % topica l ointment RxNorm: 295622 1 Application TOP BID 03/19/2018 03/28/2018 Inactive Basaglar KwikPen U-1 00 Insulin 100 unit/mL (3 mL) subcutaneous RxNorm: 8708114 45 Unit(s) SQ daily 03/06/2018 05/02/2018 Inactive Basaglar KwikPen U-1 00 Insulin 100 unit/mL (3 mL) subcutaneous RxNorm: 2443042 45 Unit(s) SQ daily 03/06/2018 03/05/2018 Inactive Toujeo SoloStar U-30 0 Insulin 300 unit/mL (1.5 mL) subcutaneous pen RxNorm: 7582356 Unit(s) INJECT 45 UNITS UNDER THE SKIN DAILY 02/22/2018 03/05/2018 Inactive 30 d ay supply Toujeo SoloStar U-30 0 Insulin 300 unit/mL (1.5 mL) subcutaneous pen RxNorm: 4373774 INJECT 40 UNITS UNDER THE SKIN DAILY 02/21/2018 02/21/2018 Inactive Keflex 500 mg capsule RxNorm: 639445 1 Capsule(s) PO TID 02/01/2018 02/07/2018 Inactive Toujeo SoloStar U-30 0 Insulin 300 unit/mL (1.5 mL) subcutaneous pen RxNorm: 6968637 45 Unit(s) SQ daily 12/26/2017 No Stop Date Active atorvastatin 40 mg t ablet RxNorm: 010267 Tablet(s) TAKE ONE-REA LF TABLET BY MOUTH EVERY EVENING 12/26/2017 No Stop Date Active Restasis 0.05 % eye drops in a dropperette RxNorm: 215168 INSTILL ONE DROP IN E ACH EYE EVERY 12 HOURS 12/24/2017 04/22/2018 Inactive atorvastatin 40 mg t ablet RxNorm: 395673 TAKE ONE TABLET BY MO UTH EVERY EVENING 12/17/2017 12/25/2017 In active venlafaxine ER 150 m g tablet,extended release 24 hr RxNorm: 267482 TAKE ONE CAPSULE BY MOUTH DAILY 10/11/2017 07/07/2018 Active metoprolol succinate ER 50 mg tablet,extended release 24 hr RxNorm: 076322 TAKE ONE TABLET BY MOUTH DAILY 10/11/2017 07/07/2018 Active atorvastatin 40 mg t ablet RxNorm: 993187 TAKE ONE TABLET BY MO UTH EVERY EVENING 10/11/2017 12/16/2017 In active metoprolol succinate ER 25 mg tablet,extended release 24 hr RxNorm: 982497 1/2 Tablet(s) PO daily 09/18/2017 03/16/2018 Inactive metronidazole 500 mg tablet RxNorm: 688792 1 Tablet(s) PO TID 08/23/2017 09/01/2017 Inactive Diflucan 150 mg tablet RxNorm: 302095 1 Tablet(s) PO daily 08/23/2017 09/01/2017 Inactive atorvastatin 40 mg t ablet RxNorm: 567408 1 Tablet(s) PO QPM 08/02/2017 10/10/2017 Inactive Toujeo SoloStar U-30 0 Insulin 300 unit/mL (1.5 mL) subcutaneous pen RxNorm: 4561106 40 Unit(s) SQ daily 07/30/2017 12/25/2017 Inactive Novofine 32 32 gauge x 1/4" needle RxNorm: USE TO TEST BLOOD SUGAR ONC E DAILY 07/26/2017 04/16/2019 Ac tive Toujeo SoloStar U-30 0 Insulin 300 unit/mL (1.5 mL) subcutaneous pen RxNorm: 2194645 INJECT 24 UNITS UNDER THE SKIN EVERY EVENING 07/26/2017 07/29/2017 Inactive Apidra U-100 Insulin 100 unit/mL subcutaneous solution RxNorm: 053506 5 Unit(s) SQ AC 06/06/2017 06/06/2017 Inactive start with 5 units with breakfast -call with blood sugars in 1 week Keflex 500 mg capsule RxNorm: 712869 1 Capsule(s) PO TID 06/04/2017 06/10/2017 Inactive Apidra U-100 Insulin 100 unit/mL subcutaneous solution RxNorm: 509443 5 Unit(s) SQ AC 06/04/2017 06/05/2017 Inactive start with 5 units with breakfast -call with blood sugars in 1 week Restasis 0.05 % eye drops in a dropperette RxNorm: 446614 1 gtts ophthalmic (ey e) Q12H 06/04/2017 07/03/2017 Inactive Toujeo SoloStar U-30 0 Insulin 300 unit/mL (1.5 mL) subcutaneous pen RxNorm: 0449653 28 Unit(s) SQ QPM x1 week, then 32 units daily. 04/26/2017 08/28/2017 Inactive Restasis MultiDose 0 .05 % eye drops RxNorm: 082756 1 Drop(s) ophthalmic (eye) daily - BID 04/24/2017 No Stop Date Active cyanocobalamin (vit B-12) 1,000 mcg/mL injection solution RxNorm: 949909 1 Milliliter(s) Inj QW -BIW 04/24/2017 07/22/2017 Inactive disp with syringes please Toujeo SoloStar U-30 0 Insulin 300 unit/mL (1.5 mL) subcutaneous pen RxNorm: 9648172 24 Unit(s) SQ QPM 04/24/2017 04/23/2017 Inactive Novofine 32 32 gauge x 1/4" needle RxNorm: 1 test Miscellaneous daily 04/24/2017 07/22/2017 In active E11.65 use with westley venlafaxine ER 150 m g tablet,extended release 24 hr RxNorm: 419150 1 Tablet(s) PO daily 04/24/2017 10/10/2017 Inactive cyanocobalamin (vit B-12) 1,000 mcg/mL injection solution RxNorm: 047718 1 Milliliter(s) Inj QW -BIW 04/24/2017 04/23/2017 Inactive metoprolol succinate ER 50 mg tablet,extended release 24 hr RxNorm: 496001 1 Tablet(s) PO daily 04/24/2017 09/17/2017 Inactive Toujeo SoloStar U-30 0 Insulin 300 unit/mL (1.5 mL) subcutaneous pen RxNorm: 8192647 24 Unit(s) SQ QPM 04/24/2017 04/25/2017 Inactive Centrum Silver tablet RxNorm: 1 Tablet(s) PO daily No Start Date Active Novolog U-100 Insuli n aspart 100 unit/mL subcutaneous solution RxNorm: 782853 5 Unit(s) SQ AC No Start Date Active magnesium 250 mg tablet RxNorm: 1 Tablet(s) PO as needed No Start Date Active Probiotic Blend oral RxNorm: 131042 oral No Start Date Active Calcium 600 + D(3) 6 00 mg (1,500 mg)-400 unit tablet RxNorm: 040085 1 Tablet(s) PO as needed No Start Date Active atorvastatin 40 mg t ablet RxNorm: 816303 1 Tablet(s) PO QPM No Start Date 08/01/2017 Inactive Novofine 32 32 gauge x 1/4" needle RxNorm: 1 Miscellaneous daily No Start Date 04/23/2017 Inactive cyanocobalamin (vit B-12) 1,000 mcg/mL injection solution RxNorm: 955828 1 Milliliter(s) Inj No Start Date 04/23/2017 Inactive metoprolol succinate ER 50 mg tablet,extended release 24 hr RxNorm: 143364 1 Tablet(s) PO daily No Start Date 04/23/2017 Inactive lisinopril 5 mg tablet RxNorm: 692667 1 Tablet(s) PO QPM No Start Date 04/23/2017 Inactive Restasis MultiDose 0 .05 % eye drops RxNorm: 847668 Drop(s) ophthalmic (e ye) No Start Date 04/23/2017 Inactive venlafaxine ER 150 m g capsule,extended release 24 hr RxNorm: 389896 1 Capsule(s) PO daily No Start Date [...] Code Item Item Code Result Date Lipase Ibf694 LIPASE 26 U/L 05/06/2018 Comp Metabolic Bcj901 NA 140 mEq/L 05/06/2018 Comp Metabolic Jhl478 K 4.5 mEq/L 05/06/2018 Comp Metabolic Quk926 CL 109 mEq/L 05/06/2018 Comp Metabolic Ink397 CO2 24.0 mEq/L 05/06/2018 Comp Metabolic Cqr487 AN ION GAP 12 05/06/2018 Comp Metabolic Xdt875 GL UCOSE 341 mg/dL 05/06/2018 Comp Metabolic Cnr159 Cr eat 1.6 mg/dL 05/06/2018 Comp Metabolic Uld142 eG FR 34 ml/min/1.73m2 05/06 Comp Metabolic Jiy845 BUN 39 mg/dL 05/06/2018 Comp Metabolic Sld664 B/ C Ratio 24.7 Ratio 05/06/2018 Comp Metabolic Jjg866 CA LCIUM 9.1 mg/dL 05/06/2018 Comp Metabolic Das686 AL K PHOS 61 U/L 05/06/2018 Comp Metabolic Nze575 T(SGOT) 21 U/L 05/06/2018 Comp Metabolic Nxw468 AL T(SGPT) 28 U/L 05/06/2018 Comp Metabolic Yyb958 BI LI T 0.3 mg/dL 05/06/2018 Comp Metabolic Jly668 AL BUMIN 3.8 g/dL 05/06/2018 Comp Metabolic Prj864 TP RO 6.1 g/dL 05/06/2018 Comp Metabolic Kcc521 GL OB 2.4 g/dL 05/06/2018 Comp Metabolic Afg640 A/ G Ratio 1.6 Ratio 05/06/2018 Comp Metabolic Ctg240 Os mo 302 mOsmo 05/06/2018 Amylase Ord34 AMYLASE 48 U/L 05/06/2018 Lipid Ord30 CHOL 171 mg/dL 12/13/2017 Lipid Ord30 HDL 64.0 mg/dl 12/13/2017 Lipid Ord30 TRIG 89 mg/dL 12/13/2017 Lipid Ord30 LDL 89 mg/dL 12/13/2017 Lipid Ord30 C/HDL 2.7 Ratio 12/13/2017 Comp Metabolic Aif513 NA 140 mEq/L 12/13/2017 Comp Metabolic Bzk156 K 4.4 mEq/L 12/13/2017 Comp Metabolic Abw451 CL 107 mEq/L 12/13/2017 Comp Metabolic Tuv258 CO2 23.0 mEq/L 12/13/2017 Comp Metabolic Zym589 AN ION GAP 14 12/13/2017 Comp Metabolic Ehl971 GL UCOSE 179 mg/dL 12/13/2017 Comp Metabolic Atw046 Cr eat 1.7 mg/dL 12/13/2017 Comp Metabolic Wfx589 eG FR 31 ml/min/1.73m2 12/13 Comp Metabolic Wmo341 BUN 40 mg/dL 12/13/2017 Comp Metabolic Icj102 B/ C Ratio 23.3 Ratio 12/13/2017 Comp Metabolic Vch791 CA LCIUM 10.3 mg/dL 12/13/2017 Comp Metabolic Myq159 AL K PHOS 54 U/L 12/13/2017 Comp Metabolic Zbo321 T(SGOT) 41 U/L 12/13/2017 Comp Metabolic Rog553 AL T(SGPT) 44 U/L 12/13/2017 Comp Metabolic Omo703 BI LI T 0.4 mg/dL 12/13/2017 Comp Metabolic Yze256 AL BUMIN 4.9 g/dL 12/13/2017 Comp Metabolic Ggg568 TP RO 7.7 g/dL 12/13/2017 Comp Metabolic Dem984 GL OB 2.8 g/dL 12/13/2017 Comp Metabolic Kvn001 A/ G Ratio 1.8 Ratio 12/13/2017 Comp Metabolic Wxe352 Os mo 294 mOsmo 12/13/2017 Tsh Ord6 TSH (3rd IS) 2.56 uIU/mL 12/13/2017 %Hba1C Qqr565 % HbA1c 14508-2 9.6 % 12/13/2017 %Hba1C Nrx973 Gluc Ave 229 mg/dL 12/13/2017 Cbc With [...] 32.0 pg 12/13/2017 Cbc With Differential Ord2 Ellis% 8.0 % 12/13/2017 Cbc With Differential Ord2 [...] 1.44 K/ul 12/13/2017 Cbc With Differential Ord2 Ellis ABS# 0.5 K/ul 12/13/2017 Cbc With Differential Ord2 Eos ABS# 0.1 K/ul 12/13/2017 Cbc With Differential Ord2 Baso ABS# 0.0 K/ul 12/13/2017 %Hba1C Xph635 % HbA1c 94792-6 13.1 % 04/24/2017 %Hba1C Jic098 Gluc Ave 329 mg/dL 04/24/2017 Cbc With [...] 32.0 pg 04/24/2017 Cbc With Differential Ord2 Ellis% 11.0 % 04/24/2017 Cbc With Differential Ord2 [...] 2.39 K/ul 04/24/2017 Cbc With Differential Ord2 Ellis ABS# 0.8 K/ul 04/24/2017 Cbc With Differential Ord2 Eos ABS# 0.1 K/ul 04/24/2017 Cbc With Differential Ord2 Baso ABS# 0.0 K/ul 04/24/2017 Comp Metabolic Vbj514 NA 142 mEq/L 04/24/2017 Comp Metabolic Sil939 K 3.8 mEq/L 04/24/2017 Comp Metabolic Pap901 CL 105 mEq/L 04/24/2017 Comp Metabolic Srz903 CO2 27.0 mEq/L 04/24/2017 Comp Metabolic Jgd292 AN ION GAP 14 04/24/2017 Comp Metabolic Xbv244 GL UCOSE 203 mg/dL 04/24/2017 Comp Metabolic Bdy669 Cr eat 1.9 mg/dL 04/24/2017 Comp Metabolic Osr107 eG FR 28 ml/min/1.73m2 04/24 Comp Metabolic Ulj755 BUN 26 mg/dL 04/24/2017 Comp Metabolic Hhc611 B/ C Ratio 13.6 Ratio 04/24/2017 Comp Metabolic Msa481 CA LCIUM 9.9 mg/dL 04/24/2017 Comp Metabolic Hhs606 AL K PHOS 79 U/L 04/24/2017 Comp Metabolic Ggk294 T(SGOT) 25 U/L 04/24/2017 Comp Metabolic Kqe109 AL T(SGPT) 36 U/L 04/24/2017 Comp Metabolic Rmv208 BI LI T 0.3 mg/dL 04/24/2017 Comp Metabolic Rul258 AL BUMIN 4.5 g/dL 04/24/2017 Comp Metabolic Pca647 TP RO 6.9 g/dL 04/24/2017 Comp Metabolic Yzr027 GL OB 2.5 g/dL 04/24/2017 Comp Metabolic Avk685 A/ G Ratio 1.8 Ratio 04/24/2017 Comp Metabolic Dud235 Os mo 294 mOsmo 04/24/2017 Review of [...] Date URINALYSIS NONAUTO W /O SCOPE CPT-4: 71284 05/06/2018 GLUC MONITOR CONT PH YS I&R CPT-4: 83232 09/18/2017 GLUCOSE MONITORING CONT CPT-4: 37449 06/20/2017 Vital Signs Date Vital 05/30/2018 Blood Pressure 1: 144/64 Code: 8480-6 BMI: 22.4 Code: 61714-5 Heart Rate 1: 89 bpm Height: 5'6" SpO2: 98% Temperature: 37.2 (C ) / 98.9 (F) Weight: 139 lbs 05/23/2018 Blood Pressure 1: 146/66 Code: 8480-6 BMI: 22.4 Code: 53490-9 Heart Rate 1: 85 bpm Height: 5'6" SpO2: 97% Weight: 139 lbs 05/06/2018 Blood Pressure 1: 128/86 Code: 8480-6 BMI: 20.8 Code: 12726-3 Heart Rate 1: 96 bpm Height: 5'6" SpO2: 96% Weight: 129 lbs 04/30/2018 Blood Pressure 1: 124/66 Code: 8480-6 Heart Rate 1: 87 bpm Height: 5'6" SpO2: 98% 03/19/2018 Blood Pressure 1: 142/84 Code: 8480-6 BMI: 20.5 Code: 27516-3 Heart Rate 1: 88 bpm Height: 5'6" SpO2: 98% Temperature: 36.6 (C ) / 97.9 (F) Weight: 129 lbs 02/01/2018 Blood Pressure 1: 110/52 Code: 8480-6 BMI: 19.9 Code: 01316-1 Height: 5'6" Weight: 125 lbs 12/13/2017 Blood Pressure 1: 140/80 Code: 8480-6 BMI: 19.9 Code: 61846-9 Heart Rate 1: 72 bpm Height: 5'6" SpO2: 95% Weight: 125 lbs 09/18/2017 Blood Pressure 1: 126/82 Code: 8480-6 BMI: 20.0 Code: 68484-2 Heart Rate 1: 103 bpm Height: 5'6" SpO2: 98% Weight: 126 lbs 08/23/2017 Blood Pressure 1: 118/62 Code: 8480-6 Heart Rate 1: 110 bpm Height: 5'6" SpO2: 95% Temperature: 37.1 (C ) / 98.7 (F) 06/20/2017 Heigh t: Weight: 06/11/2017 Blood Pressure 1: 142/76 Code: 8480-6 BMI: 21.3 Code: 78178-5 Heart Rate 1: 102 bpm Height: 5'6" SpO2: 97% Weight: 134 lbs 06/04/2017 Blood Pressure 1: 160/84 Code: 8480-6 BMI: 20.8 Code: 57361-9 Heart Rate 1: 87 bpm Height: 5'6" SpO2: 97% Weight: 131 lbs 04/24/2017 Blood Pressure 1: 132/80 Code: 8480-6 BMI: 20.8 Code: 33662-9 Heart Rate 1: 84 bpm Height: 5'6" [...] Encounters Encounter Performer Loca tion Codes Date ([id number]) [id number] EST. P ATIENT, LEVEL IV Diagnosis: Acute laryngopharyngitis[ICD10: J06.0] Diagnosis: Other allergic rhinitis[ICD10: J30.89] Diagnosis: Localized edema[ICD10: R60.0] Shae Man MD, [facility] CPT-4: 93232 05/30/2018 [id number] EST. PATIENT, LEVEL III Diagnosis: Dysuria[ICD10: R30.0] Diagnosis: Type 2 diabetes mellitus with hyperglycemia[ICD10: E11.65] Diagnosis: Localized edema[ICD10: R60.0] Shae Man MD, [facility] CPT-4: 42780 05/23/2018 ([id number]) 03507 EST. P ATIENT, LEVEL IV Diagnosis: Low back pain[ICD10: M54.5] Diagnosis: Left upper quadrant pain[ICD10: R10.12] Diagnosis: Pain in left hip[ICD10: M25.552] Diagnosis: Pain in left shoulder[ICD10: M25.512] Diagnosis: Repeated falls[ICD10: R29.6] Diagnosis: Unsteadiness on feet[ICD10: R26.81] Diagnosis: Chronic kidney disease, stage 3 (moderate)[ICD10: N18.3] Ana Man MD, [facility] CPT-4: 21084 05/06/2018 [id number] EST. PATIENT, LEVEL III Diagnosis: Low back pain[ICD10: M54.5] Diagnosis: Pain in left hip[ICD10: M25.552] Diagnosis: Repeated falls[ICD10: R29.6] Diagnosis: Unsteadiness on feet[ICD10: R26.81] Diagnosis: Headache[ICD10: R51] Diagnosis: Type 2 diabetes mellitus with hyperglycemia[ICD10: E11.65] Shae Man MD, [facility] CPT-4: 37481 04/30/2018 ([id number]) 65179 EST. P ATIENT, LEVEL III Diagnosis: Acute recurrent maxillary sinusitis[ICD10: J01.01] Diagnosis: Rash and other nonspecific skin eruption[ICD10: R21] [facility] CPT-4: 20759 03/19/2018 ([id number]) 97110 EST. P ATIENT, LEVEL IV Diagnosis: Acute recurrent maxillary sinusitis[ICD10: J01.01] Diagnosis: Low back pain[ICD10: M54.5] Diagnosis: Unsteadiness on feet[ICD10: R26.81] Diagnosis: Essential (primary) hypertension[ICD10: I10] [facility] CPT-4: 87875 02/01/2018 ([id number]) 50635 EST. P ATIENT, LEVEL IV Diagnosis: Type 2 diabetes mellitus with hyperglycemia[ICD10: E11.65] Diagnosis: Essential (primary) hypertension[ICD10: I10] Diagnosis: Other fatigue[ICD10: R53.83] Maude Man MD, [facility] CPT-4: 77857 12/13/2017 ([id number]) 26194 EST. P ATIENT, LEVEL IV Diagnosis: Type 2 diabetes mellitus with hyperglycemia[ICD10: E11.65] Diagnosis: Essential (primary) hypertension[ICD10: I10] Diagnosis: Major depressive disorder, recurrent, in partial remission[ICD10: F33.41] Maude Man MD, [facility] CPT-4: 40141 09/18/2017 ([id number]) 97696 EST. P ATIENT, LEVEL IV Diagnosis: Pouchitis[ICD10: K91.850] Diagnosis: Other fatigue[ICD10: R53.83] Diagnosis: Type 2 diabetes mellitus with hyperglycemia[ICD10: E11.65] Diagnosis: Essential (primary) hypertension[ICD10: I10] Diagnosis: Orthostatic hypotension[ICD10: I95.1] Maude Man MD, [facility] CPT-4: 68883 08/23/2017 ([id number]) Miscellaneou s no charge Diagnosis: Type 2 diabetes mellitus with hyperglycemia[ICD10: E11.65] Shae Man MD, [facility] CPT-4: 75090 06/25/2017 ([id number]) 57443 EST. P ATIENT, LEVEL IV Diagnosis: Type 2 diabetes mellitus with hyperglycemia[ICD10: E11.65] Maude Man MD, [facility] CPT-4: 64734 06/11/2017 ([id number]) 41734 EST. P ATIENT, LEVEL IV Diagnosis: Type 2 diabetes mellitus with hyperglycemia[ICD10: E11.65] Diagnosis: Essential (primary) hypertension[ICD10: I10] Diagnosis: Acute recurrent maxillary sinusitis[ICD10: J01.01] Ana Man MD, [facility] CPT-4: 20091 06/04/2017 OFFICE VISIT, NEW - LEVEL 4 Diagnosis: Left lower quadrant pain[ICD10: R10.32] Diagnosis: Other ulcerative colitis with unspecified complications[ICD10: K51.819] Diagnosis: Essential (primary) hypertension[ICD10: I10] Diagnosis: Type 2 diabetes mellitus without complications[ICD10: E11.9] Diagnosis: Major depressive disorder, recurrent, in partial remission[ICD10: F33.41] Diagnosis: Melena[ICD10: K92.1] [facility] CPT-4: 07623 04/24/2017 Plan of Care Planned Activity Notes [...] edema. 05/30/2018 Appointment: Shae Guerrero WPtel: [address] [place], [place] [address] (30 min) [facility] 05/30/2018 Patient Education: Patient Medication Summary Completed 05/30/2018 Care Plan: Referral Order SNOMED-CT : 018671562 Pending 05/24/2018 Visit Plan: Diabetes Mellitus - [...] not improve. 05/23/2018 Appointment: Shae Guerrero WPtel: [facility] [place] (30 min) Complex 05/23/2018 Patient Education: Patient Medication Summary Completed 05/23/2018 Patient Education: Diabetes Completed 05/23/2018 Care Plan: Urine Culture Pending 05/23/2018 Appointment: Ana Burrell WPtel: [facility] [phone] [place] (30 min) Complex 05/20/2018 Care Plan: CT HEAD/BRAIN W/O DYE LOINC : 94215-1 Pending 05/08/2018 Visit Plan: Abdominal pain -UA [...] adequate hydration 05/06/2018 Appointment: Ana Burrell WPtel: [facility] [phone] [place] (15 min) Moderate 05/06/2018 Patient [...] control. 04/30/2018 Appointment: Shae Guerrero WPtel: [phone] [facility] (30 min) Complex 04/30/2018 Patient Education: [...] worse 03/19/2018 Appointment: Ana Burrell WPtel: [phone] [phone] (30 min) Complex 03/19/2018 Patient Education: [...] appt 02/01/2018 Appointment: Ana Burrell WPtel: [phone] [phone] (30 min) Complex 02/01/2018 Patient Education: Patient Medication Summary Completed 02/01/2018 Patient Education: Back Pain Completed 02/01/2018 Patient Education: Hypertension Completed 02/01/2018 [facility] [facility] [facility] Mod[facility] 01/24/2018 Referral: Megha [...] made. 12/13/2017 [facility]ment[facility] [phone] [facility] ([facility] Moderate 12/13/2017 Patient Education: Patient Medication Summary Completed 12/13/2017 Patient Education: Diabetes Completed 12/13/2017 Patient Education: Hypertension Completed 12/13/2017 Care Plan: Referral Order SNOMED-CT : 393032826 Pending 12/13/2017 [facility]ment[facility] [phone] [facility] [place] ([place]) Moderate 11/26/2017 Visit [...] through 09/18/2017 [facility]ment[facility] [phone] [facility] [place] ([place]) Moderate 09/18/2017 Patient Education: Patient Medication Summary Completed 09/18/2017 Referral: External, Ordering Provider Patient informed. Referral info faxed. Completed 09/17/2017 App[facility]ment: [facility] [phone] [facility] [place] ([place] min) Moderate 09/06/2017 Visit [...] Dr. Gracia. 08/23/2017 Appointment: Maude Man WPtel: [facility] [place] (15 min) Moderate 08/23/2017 Patient Education: Patient Medication Summary Completed 08/23/2017 Care Plan: Comp Metabolic Cancelled 08/23/2017 Care Plan: Cbc With Differential Cancelled 08/23/2017 Care Plan: %Hba1C LOIN C : 45809-0 Cancelled 08/23/2017 Care Plan: Magnesium Cancelled 08/23/2017 Care Plan: Referral Order SNOMED-CT : 110110143 Pending 08/23/2017 Appointment: Maude Man WPtel: [facility] [place] [place] (15 min) Moderate 08/13/2017 Visit Plan: CGM removed - pt tolera jomar procedure well - no changes at this time. 06/25/2017 Patient Education: Patient Medication Summary Completed 06/25/2017 Appointment: Maude Man WPtel: [facility] [place] [place] ([place]) Moderate 06/21/2017 Visit [...] glucose control. 06/20/2017 Appointment: [facility]Ptel[facility] ([facility] 06/20/2017 Patient Education: Patient Medication Summary Completed [...] Completed 06/04/2017 Appointment: Ana Burrell WPtel: [phone] [phone] (30 min) Complex 05/31/2017 Appointment: Ana Burrell WPtel: [facility] [phone] (30 min) Complex 05/29/2017 Appointment: Ana Burerll WPtel: [facility] [phone] (30 min) Complex 05/24/2017 Visit Plan: [...] current medications. 04/24/2017 Appointment: Ana Burrell WPtel: [address] [place], [place] [phone] [address] New Patient 04/24/2017 Patient Education: Patient Medication Summary Completed 04/24/2017 Appointment: Shae Guerrero WPtel: [address] [place], [place] [phone] New Patient 04/20/2017 Referral: External, Ordering Provider [...]
--- OUTSIDE RECORDS SUMMARY | 2019-01-29 06:08 | XMS REPORT | CCD ---
Author Author Baylee Burrell Organization Maude Man MD, [facility] Address [address] [place] [address] Phone Care Team Providers Care Psych Nurse Name Role Phone PP Unavailable CCM Unavailable Summary Purpose Interface Exchange Insurance Providers Payer name Policy type / Coverage type Covered alliance party ID Effective Begin Date Effective End Date WPS Medicare Part B Blue Cross/Blue Shield [id number] Unknown Blue Cross Blue Shield [facility] [place] e Cross/Blue Shield [id number] Un known Blue Cross/Blue Shield [id number] Unknown Family history Sister Diagnosis Age At [...] 1 04/24/2017 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/24/[address]: 513446887 Never smoker 04/24/[address]: 345297089 Never drinks alcohol 04/24/2017 Allergies, Adverse Reactions, Alerts Substance Reaction Codes Entered Date Inactivated Date Status Levaquin RxNorm: 26966 04/24/2017 No Inactive Date Active Past Medical History Illness Codes Condition Status Onset Date Resolved Date Acute laryngopharyng itis ICD-9: 465.0 ICD-10: J06.0 Active 05/30/2018 Unknown Localized edema ICD-9: 782.3 ICD-10: R60.0 Active 05/23/2018 Unknown Other allergic rhinitis ICD-9: 477.8 ICD-10: J30.89 Active 05/30/2018 Unknown Dysuria ICD-9: 788.1 ICD-10: R30.0 Active 05/23/2018 Unknown Type 2 diabetes karina itus with hyperglycemia ICD-9: 250.02 ICD-10: E11.65 Active 06/04/2017 Unknown Chronic kidney disea se, stage 3 (moderate) ICD-9: 585.3 ICD-10: N18.3 Active 05/06/2018 Unknown Left upper quadrant pain ICD-9: 789.02 [...] ICD-9: 782.1 ICD-10: R21 Active 03/19/2018 Unknown Essential (primary) hypertension ICD-9: 401.9 ICD-10: I10 Active 04/24/2017 Unknown Orthostatic hypotension ICD-9: 458.0 ICD-10: I95.1 [...] Condition Codes Effectiv e Dates Condition Status Acute laryngopharyng itis ICD-9: 465.0 ICD-10: J06.0 05/30/2018 Active Localized edema ICD-9: 782.3 ICD-10: R60.0 05/23/2018 Active Other allergic rhinitis ICD-9: 477.8 ICD-10: J30.89 05/30/2018 Active Dysuria ICD-9: 788.1 ICD-10: R30.0 05/23/2018 Active Type 2 diabetes karina itus with hyperglycemia ICD-9: 250.02 ICD-10: E11.65 06/04/2017 Active Chronic kidney disea se, stage 3 (moderate) ICD-9: 585.3 ICD-10: N18.3 05/06/2018 Active Left upper quadrant pain ICD-9: 789.02 [...] eruption ICD-9: 782.1 ICD-10: R21 03/19/2018 Active Essential (primary) hypertension ICD-9: 401.9 ICD-10: I10 04/24/2017 Active Orthostatic hypotension ICD-9: 458.0 ICD-10: I95.1 [...] Date Stop Date Sta tus Fill Instructions Lasix 20 mg tablet RxNorm: 891132 Tablet(s) PO Lasix 40mg daily x 3 days, then 20mg daily as needed for swelling or weight gain over 3 lbs 05/30/2018 No Stop Date Active Augmentin 500 mg-125 mg tablet RxNorm: 414801 1 Tablet(s) PO TID 05/30/2018 06/08/2018 Active potassium chloride E R 10 mEq tablet,extended release RxNorm: 889001 Tablet(s) potassium 20meq daily x 3 days then 10meq daily ONLY when taking the lasix. 05/30/2018 No Stop Date Active tramadol 50 mg tablet RxNorm: 722997 1 Tablet(s) PO Q6 PRN 05/29/2018 No Stop Date Active Basaglar KwikPen U-1 00 Insulin 100 unit/mL (3 mL) subcutaneous RxNorm: 1737008 50 Unit(s) SQ daily 05/29/2018 12/24/2018 Active qty sufficient for 1 month potassium chloride E R 20 mEq tablet,extended release RxNorm: 982102 1 Tablet(s) PO daily 05/23/2018 05/25/2018 Inactive Lasix 40 mg tablet RxNorm: 532369 1 Tablet(s) PO daily 05/23/2018 05/25/2018 Inactive Keflex 500 mg capsule RxNorm: 736589 1 Capsule(s) PO TID 05/23/2018 05/29/2018 Inactive Zofran 4 mg tablet RxNorm: 577712 1 Tablet(s) PO Q6 PRN 05/06/2018 No Stop Date Active tramadol 50 mg tablet RxNorm: 852375 1 Tablet(s) PO Q6 PRN 05/06/2018 05/28/2018 Inactive Basaglar KwikPen U-1 00 Insulin 100 unit/mL (3 mL) subcutaneous RxNorm: 5722363 46 Unit(s) SQ daily 05/03/2018 05/28/2018 Inactive qty sufficient for 1 month doxycycline hyclate 100 mg tablet RxNorm: 9531617 1 Tablet(s) PO BID 03/19/2018 03/25/2018 Inactive mupirocin 2 % topica l ointment RxNorm: 193866 1 Application TOP BID 03/19/2018 03/28/2018 Inactive Basaglar KwikPen U-1 00 Insulin 100 unit/mL (3 mL) subcutaneous RxNorm: 8701642 45 Unit(s) SQ daily 03/06/2018 05/02/2018 Inactive Basaglar KwikPen U-1 00 Insulin 100 unit/mL (3 mL) subcutaneous RxNorm: 9813533 45 Unit(s) SQ daily 03/06/2018 03/05/2018 Inactive Toujeo SoloStar U-30 0 Insulin 300 unit/mL (1.5 mL) subcutaneous pen RxNorm: 2996893 Unit(s) INJECT 45 UNITS UNDER THE SKIN DAILY 02/22/2018 03/05/2018 Inactive 30 d ay supply Toujeo SoloStar U-30 0 Insulin 300 unit/mL (1.5 mL) subcutaneous pen RxNorm: 2984944 INJECT 40 UNITS UNDER THE SKIN DAILY 02/21/2018 02/21/2018 Inactive Keflex 500 mg capsule RxNorm: 064729 1 Capsule(s) PO TID 02/01/2018 02/07/2018 Inactive Toujeo SoloStar U-30 0 Insulin 300 unit/mL (1.5 mL) subcutaneous pen RxNorm: 3215574 45 Unit(s) SQ daily 12/26/2017 No Stop Date Active atorvastatin 40 mg t ablet RxNorm: 252527 Tablet(s) TAKE ONE-REA LF TABLET BY MOUTH EVERY EVENING 12/26/2017 No Stop Date Active Restasis 0.05 % eye drops in a dropperette RxNorm: 594096 INSTILL ONE DROP IN E ACH EYE EVERY 12 HOURS 12/24/2017 04/22/2018 Inactive atorvastatin 40 mg t ablet RxNorm: 601774 TAKE ONE TABLET BY MO UTH EVERY EVENING 12/17/2017 12/25/2017 In active venlafaxine ER 150 m g tablet,extended release 24 hr RxNorm: 493032 TAKE ONE CAPSULE BY MOUTH DAILY 10/11/2017 07/07/2018 Active metoprolol succinate ER 50 mg tablet,extended release 24 hr RxNorm: 136589 TAKE ONE TABLET BY MOUTH DAILY 10/11/2017 07/07/2018 Active atorvastatin 40 mg t ablet RxNorm: 967054 TAKE ONE TABLET BY MO UTH EVERY EVENING 10/11/2017 12/16/2017 In active metoprolol succinate ER 25 mg tablet,extended release 24 hr RxNorm: 919676 1/2 Tablet(s) PO daily 09/18/2017 03/16/2018 Inactive metronidazole 500 mg tablet RxNorm: 108588 1 Tablet(s) PO TID 08/23/2017 09/01/2017 Inactive Diflucan 150 mg tablet RxNorm: 593897 1 Tablet(s) PO daily 08/23/2017 09/01/2017 Inactive atorvastatin 40 mg t ablet RxNorm: 737483 1 Tablet(s) PO QPM 08/02/2017 10/10/2017 Inactive Toujeo SoloStar U-30 0 Insulin 300 unit/mL (1.5 mL) subcutaneous pen RxNorm: 1075780 40 Unit(s) SQ daily 07/30/2017 12/25/2017 Inactive Novofine 32 32 gauge x 1/4" needle RxNorm: USE TO TEST BLOOD SUGAR ONC E DAILY 07/26/2017 04/16/2019 Ac tive Toujeo SoloStar U-30 0 Insulin 300 unit/mL (1.5 mL) subcutaneous pen RxNorm: 3019249 INJECT 24 UNITS UNDER THE SKIN EVERY EVENING 07/26/2017 07/29/2017 Inactive Apidra U-100 Insulin 100 unit/mL subcutaneous solution RxNorm: 495514 5 Unit(s) SQ AC 06/06/2017 06/06/2017 Inactive start with 5 units with breakfast -call with blood sugars in 1 week Keflex 500 mg capsule RxNorm: 362096 1 Capsule(s) PO TID 06/04/2017 06/10/2017 Inactive Apidra U-100 Insulin 100 unit/mL subcutaneous solution RxNorm: 914573 5 Unit(s) SQ AC 06/04/2017 06/05/2017 Inactive start with 5 units with breakfast -call with blood sugars in 1 week Restasis 0.05 % eye drops in a dropperette RxNorm: 031566 1 gtts ophthalmic (ey e) Q12H 06/04/2017 07/03/2017 Inactive Toujeo SoloStar U-30 0 Insulin 300 unit/mL (1.5 mL) subcutaneous pen RxNorm: 6872267 28 Unit(s) SQ QPM x1 week, then 32 units daily. 04/26/2017 08/28/2017 Inactive Restasis MultiDose 0 .05 % eye drops RxNorm: 855315 1 Drop(s) ophthalmic (eye) daily - BID 04/24/2017 No Stop Date Active cyanocobalamin (vit B-12) 1,000 mcg/mL injection solution RxNorm: 340374 1 Milliliter(s) Inj QW -BIW 04/24/2017 07/22/2017 Inactive disp with syringes please Toujeo SoloStar U-30 0 Insulin 300 unit/mL (1.5 mL) subcutaneous pen RxNorm: 8360686 24 Unit(s) SQ QPM 04/24/2017 04/23/2017 Inactive Novofine 32 32 gauge x 1/4" needle RxNorm: 1 test Miscellaneous daily 04/24/2017 07/22/2017 In active E11.65 use with westley venlafaxine ER 150 m g tablet,extended release 24 hr RxNorm: 223879 1 Tablet(s) PO daily 04/24/2017 10/10/2017 Inactive cyanocobalamin (vit B-12) 1,000 mcg/mL injection solution RxNorm: 315882 1 Milliliter(s) Inj QW -BIW 04/24/2017 04/23/2017 Inactive metoprolol succinate ER 50 mg tablet,extended release 24 hr RxNorm: 188305 1 Tablet(s) PO daily 04/24/2017 09/17/2017 Inactive Toujeo SoloStar U-30 0 Insulin 300 unit/mL (1.5 mL) subcutaneous pen RxNorm: 8215028 24 Unit(s) SQ QPM 04/24/2017 04/25/2017 Inactive Centrum Silver tablet RxNorm: 1 Tablet(s) PO daily No Start Date Active Novolog U-100 Insuli n aspart 100 unit/mL subcutaneous solution RxNorm: 757629 5 Unit(s) SQ AC No Start Date Active magnesium 250 mg tablet RxNorm: 1 Tablet(s) PO as needed No Start Date Active Probiotic Blend oral RxNorm: 677217 oral No Start Date Active Calcium 600 + D(3) 6 00 mg (1,500 mg)-400 unit tablet RxNorm: 431829 1 Tablet(s) PO as needed No Start Date Active atorvastatin 40 mg t ablet RxNorm: 649976 1 Tablet(s) PO QPM No Start Date 08/01/2017 Inactive Novofine 32 32 gauge x 1/4" needle RxNorm: 1 Miscellaneous daily No Start Date 04/23/2017 Inactive cyanocobalamin (vit B-12) 1,000 mcg/mL injection solution RxNorm: 880654 1 Milliliter(s) Inj No Start Date 04/23/2017 Inactive metoprolol succinate ER 50 mg tablet,extended release 24 hr RxNorm: 253986 1 Tablet(s) PO daily No Start Date 04/23/2017 Inactive lisinopril 5 mg tablet RxNorm: 635033 1 Tablet(s) PO QPM No Start Date 04/23/2017 Inactive Restasis MultiDose 0 .05 % eye drops RxNorm: 506262 Drop(s) ophthalmic (e ye) No Start Date 04/23/2017 Inactive venlafaxine ER 150 m g capsule,extended release 24 hr RxNorm: 239819 1 Capsule(s) PO daily No Start Date 04/23/2017 Inactive Toujeo SoloStar U-30 0 Insulin subcutaneous RxNorm: subcutaneous No Start Date 04/23/2017 Inactive Medication Administered No Medication Administered data Immunizations No Immunization data Assessments Condition Codes Effectiv e Dates Acute laryngopharyngitis ICD-10: J06 .0 ICD-9: 465.0 [...] on feet ICD-10: R26.81 ICD-9: 781.2 05/06/2018 Chronic kidney disease, stage 3 (moderate) ICD-10: N18.3 ICD-9: 585.3 05/06/2018 Repeated falls ICD-10: R29.6 ICD-9: E888.9 05/06/2018 Pain in left shoulder ICD-10: M25.51 2 ICD-9: 719.41 05/06/2018 Low back pain ICD-10: M54.5 ICD-9: 724.2 05/06/2018 Headache ICD-10: R51 ICD-9: 784.0 04/30/2018 Rash and other nonspecific skin eruption ICD-10: R21 ICD-9: 782.1 03/19/2018 Acute recurrent maxillary sinusitis ICD-10: J01.01 ICD-9: 461.0 03/19/2018 Essential (primary) hypertension ICD -10: I10 ICD-9: 401.9 02/01/2018 Other fatigue ICD-10: R53.83 ICD-9: 780.79 12/13/2017 [...] Code Item Item Code Result Date Lipase Uge286 LIPASE 26 U/L 05/06/2018 Comp Metabolic Bxu126 NA 140 mEq/L 05/06/2018 Comp Metabolic Hys300 K 4.5 mEq/L 05/06/2018 Comp Metabolic Kjw098 CL 109 mEq/L 05/06/2018 Comp Metabolic Yrh051 CO2 24.0 mEq/L 05/06/2018 Comp Metabolic Ndm317 AN ION GAP 12 05/06/2018 Comp Metabolic Mjw494 GL UCOSE 341 mg/dL 05/06/2018 Comp Metabolic Uvz941 Cr eat 1.6 mg/dL 05/06/2018 Comp Metabolic Dgz430 eG FR 34 ml/min/1.73m2 05/06 Comp Metabolic Tua617 BUN 39 mg/dL 05/06/2018 Comp Metabolic Xgo488 B/ C Ratio 24.7 Ratio 05/06/2018 Comp Metabolic Yxr253 CA LCIUM 9.1 mg/dL 05/06/2018 Comp Metabolic Tml454 AL K PHOS 61 U/L 05/06/2018 Comp Metabolic Piu623 T(SGOT) 21 U/L 05/06/2018 Comp Metabolic Pxs563 AL T(SGPT) 28 U/L 05/06/2018 Comp Metabolic Otz073 BI LI T 0.3 mg/dL 05/06/2018 Comp Metabolic Xni593 AL BUMIN 3.8 g/dL 05/06/2018 Comp Metabolic Bgg464 TP RO 6.1 g/dL 05/06/2018 Comp Metabolic Sbe601 GL OB 2.4 g/dL 05/06/2018 Comp Metabolic Niq004 A/ G Ratio 1.6 Ratio 05/06/2018 Comp Metabolic Pny508 Os mo 302 mOsmo 05/06/2018 Amylase Ord34 AMYLASE 48 U/L 05/06/2018 Lipid Ord30 CHOL 171 mg/dL 12/13/2017 Lipid Ord30 HDL 64.0 mg/dl 12/13/2017 Lipid Ord30 TRIG 89 mg/dL 12/13/2017 Lipid Ord30 LDL 89 mg/dL 12/13/2017 Lipid Ord30 C/HDL 2.7 Ratio 12/13/2017 Comp Metabolic Txd742 NA 140 mEq/L 12/13/2017 Comp Metabolic Zis853 K 4.4 mEq/L 12/13/2017 Comp Metabolic Dah933 CL 107 mEq/L 12/13/2017 Comp Metabolic Wfb731 CO2 23.0 mEq/L 12/13/2017 Comp Metabolic Mvc408 AN ION GAP 14 12/13/2017 Comp Metabolic Sfd628 GL UCOSE 179 mg/dL 12/13/2017 Comp Metabolic Ydp015 Cr eat 1.7 mg/dL 12/13/2017 Comp Metabolic Qbh007 eG FR 31 ml/min/1.73m2 12/13 Comp Metabolic Wtq833 BUN 40 mg/dL 12/13/2017 Comp Metabolic Chu815 B/ C Ratio 23.3 Ratio 12/13/2017 Comp Metabolic Wng302 CA LCIUM 10.3 mg/dL 12/13/2017 Comp Metabolic Ifi524 AL K PHOS 54 U/L 12/13/2017 Comp Metabolic Kwu940 T(SGOT) 41 U/L 12/13/2017 Comp Metabolic Izv637 AL T(SGPT) 44 U/L 12/13/2017 Comp Metabolic Mcm292 BI LI T 0.4 mg/dL 12/13/2017 Comp Metabolic Ipr602 AL BUMIN 4.9 g/dL 12/13/2017 Comp Metabolic Adz224 TP RO 7.7 g/dL 12/13/2017 Comp Metabolic Zui986 GL OB 2.8 g/dL 12/13/2017 Comp Metabolic Ine462 A/ G Ratio 1.8 Ratio 12/13/2017 Comp Metabolic Lzd330 Os mo 294 mOsmo 12/13/2017 Tsh Ord6 TSH (3rd IS) 2.56 uIU/mL 12/13/2017 %Hba1C Zad478 % HbA1c 27709-1 9.6 % 12/13/2017 %Hba1C Mqj232 Gluc Ave 229 mg/dL 12/13/2017 Cbc With [...] 32.0 pg 12/13/2017 Cbc With Differential Ord2 [place]% 8.0 % 12/13/2017 Cbc With Differential Ord2 [...] 1.44 K/ul 12/13/2017 Cbc With Differential Ord2 [place] ABS# 0.5 K/ul 12/13/2017 Cbc With Differential Ord2 Eos ABS# 0.1 K/ul 12/13/2017 Cbc With Differential Ord2 Baso ABS# 0.0 K/ul 12/13/2017 %Hba1C Brd625 % HbA1c 15755-0 13.1 % 04/24/2017 %Hba1C Zeo633 Gluc Ave 329 mg/dL 04/24/2017 Cbc With [...] 32.0 pg 04/24/2017 Cbc With Differential Ord2 [place]% 11.0 % 04/24/2017 Cbc With Differential Ord2 [...] 2.39 K/ul 04/24/2017 Cbc With Differential Ord2 [place] ABS# 0.8 K/ul 04/24/2017 Cbc With Differential Ord2 Eos ABS# 0.1 K/ul 04/24/2017 Cbc With Differential Ord2 Baso ABS# 0.0 K/ul 04/24/2017 Comp Metabolic Fvd949 NA 142 mEq/L 04/24/2017 Comp Metabolic Fup345 K 3.8 mEq/L 04/24/2017 Comp Metabolic Rzd967 CL 105 mEq/L 04/24/2017 Comp Metabolic Plj804 CO2 27.0 mEq/L 04/24/2017 Comp Metabolic Akm748 AN ION GAP 14 04/24/2017 Comp Metabolic Uiz634 GL UCOSE 203 mg/dL 04/24/2017 Comp Metabolic Qkg661 Cr eat 1.9 mg/dL 04/24/2017 Comp Metabolic Cys154 eG FR 28 ml/min/1.73m2 04/24 Comp Metabolic Tqg691 BUN 26 mg/dL 04/24/2017 Comp Metabolic Leo795 B/ C Ratio 13.6 Ratio 04/24/2017 Comp Metabolic Swr372 CA LCIUM 9.9 mg/dL 04/24/2017 Comp Metabolic Juu020 AL K PHOS 79 U/L 04/24/2017 Comp Metabolic Onp311 T(SGOT) 25 U/L 04/24/2017 Comp Metabolic Jpt579 AL T(SGPT) 36 U/L 04/24/2017 Comp Metabolic Xmo498 BI LI T 0.3 mg/dL 04/24/2017 Comp Metabolic Tvc275 AL BUMIN 4.5 g/dL 04/24/2017 Comp Metabolic Sll790 TP RO 6.9 g/dL 04/24/2017 Comp Metabolic Hpj134 GL OB 2.5 g/dL 04/24/2017 Comp Metabolic Oyn404 A/ G Ratio 1.8 Ratio 04/24/2017 Comp Metabolic Gcv239 Os mo 294 mOsmo 04/24/2017 Review of [...] Date URINALYSIS NONAUTO W /O SCOPE CPT-4: 28528 05/06/2018 GLUC MONITOR CONT PH YS I&R CPT-4: 32488 09/18/2017 GLUCOSE MONITORING CONT CPT-4: 53031 06/20/2017 Vital Signs Date Vital 05/30/2018 Blood Pressure 1: 144/64 Code: 8480-6 BMI: 22.4 Code: 96975-8 Heart Rate 1: 89 bpm Height: 5'6" SpO2: 98% Temperature: 37.2 (C ) / 98.9 (F) Weight: 139 lbs 05/23/2018 Blood Pressure 1: 146/66 Code: 8480-6 BMI: 22.4 Code: 42617-5 Heart Rate 1: 85 bpm Height: 5'6" SpO2: 97% Weight: 139 lbs 05/06/2018 Blood Pressure 1: 128/86 Code: 8480-6 BMI: 20.8 Code: 92175-7 Heart Rate 1: 96 bpm Height: 5'6" SpO2: 96% Weight: 129 lbs 04/30/2018 Blood Pressure 1: 124/66 Code: 8480-6 Heart Rate 1: 87 bpm Height: 5'6" SpO2: 98% 03/19/2018 Blood Pressure 1: 142/84 Code: 8480-6 BMI: 20.5 Code: 81488-8 Heart Rate 1: 88 bpm Height: 5'6" SpO2: 98% Temperature: 36.6 (C ) / 97.9 (F) Weight: 129 lbs 02/01/2018 Blood Pressure 1: 110/52 Code: 8480-6 BMI: 19.9 Code: 26381-3 Height: 5'6" Weight: 125 lbs 12/13/2017 Blood Pressure 1: 140/80 Code: 8480-6 BMI: 19.9 Code: 89825-5 Heart Rate 1: 72 bpm Height: 5'6" SpO2: 95% Weight: 125 lbs 09/18/2017 Blood Pressure 1: 126/82 Code: 8480-6 BMI: 20.0 Code: 15817-1 Heart Rate 1: 103 bpm Height: 5'6" SpO2: 98% Weight: 126 lbs 08/23/2017 Blood Pressure 1: 118/62 Code: 8480-6 Heart Rate 1: 110 bpm Height: 5'6" SpO2: 95% Temperature: 37.1 (C ) / 98.7 (F) 06/20/2017 Heigh t: Weight: 06/11/2017 Blood Pressure 1: 142/76 Code: 8480-6 BMI: 21.3 Code: 70024-5 Heart Rate 1: 102 bpm Height: 5'6" SpO2: 97% Weight: 134 lbs 06/04/2017 Blood Pressure 1: 160/84 Code: 8480-6 BMI: 20.8 Code: 58988-0 Heart Rate 1: 87 bpm Height: 5'6" SpO2: 97% Weight: 131 lbs 04/24/2017 Blood Pressure 1: 132/80 Code: 8480-6 BMI: 20.8 Code: 53825-5 Heart Rate 1: 84 bpm Height: 5'6" [...] Encounters Encounter Performer Loca tion Codes Date ([id number]) [id number] EST. P ATIENT, LEVEL IV Diagnosis: Acute laryngopharyngitis[ICD10: J06.0] Diagnosis: Other allergic rhinitis[ICD10: J30.89] Diagnosis: Localized edema[ICD10: R60.0] Shae Man MD, [facility] CPT-4: 35274 05/30/2018 [id number] EST. PATIENT, LEVEL III Diagnosis: Dysuria[ICD10: R30.0] Diagnosis: Type 2 diabetes mellitus with hyperglycemia[ICD10: E11.65] Diagnosis: Localized edema[ICD10: R60.0] Shae Man MD, [facility] CPT-4: 64879 05/23/2018 ([id number]) 42936 EST. P ATIENT, LEVEL IV Diagnosis: Low back pain[ICD10: M54.5] Diagnosis: Left upper quadrant pain[ICD10: R10.12] Diagnosis: Pain in left hip[ICD10: M25.552] Diagnosis: Pain in left shoulder[ICD10: M25.512] Diagnosis: Repeated falls[ICD10: R29.6] Diagnosis: Unsteadiness on feet[ICD10: R26.81] Diagnosis: Chronic kidney disease, stage 3 (moderate)[ICD10: N18.3] Ana Man MD, [facility] CPT-4: 37827 05/06/2018 [id number] EST. PATIENT, LEVEL III Diagnosis: Low back pain[ICD10: M54.5] Diagnosis: Pain in left hip[ICD10: M25.552] Diagnosis: Repeated falls[ICD10: R29.6] Diagnosis: Unsteadiness on feet[ICD10: R26.81] Diagnosis: Headache[ICD10: R51] Diagnosis: Type 2 diabetes mellitus with hyperglycemia[ICD10: E11.65] Shae Man MD, [facility] CPT-4: 20150 04/30/2018 ([id number]) 35050 EST. P ATIENT, LEVEL III Diagnosis: Acute recurrent maxillary sinusitis[ICD10: J01.01] Diagnosis: Rash and other nonspecific skin eruption[ICD10: R21] [facility] CPT-4: 77609 03/19/2018 ([id number]) 43106 EST. P ATIENT, LEVEL IV Diagnosis: Acute recurrent maxillary sinusitis[ICD10: J01.01] Diagnosis: Low back pain[ICD10: M54.5] Diagnosis: Unsteadiness on feet[ICD10: R26.81] Diagnosis: Essential (primary) hypertension[ICD10: I10] [facility] CPT-4: 83014 02/01/2018 ([id number]) 69199 EST. P ATIENT, LEVEL IV Diagnosis: Type 2 diabetes mellitus with hyperglycemia[ICD10: E11.65] Diagnosis: Essential (primary) hypertension[ICD10: I10] Diagnosis: Other fatigue[ICD10: R53.83] Maude Man MD, [facility] CPT-4: 89461 12/13/2017 ([id number]) 65904 EST. P ATIENT, LEVEL IV Diagnosis: Type 2 diabetes mellitus with hyperglycemia[ICD10: E11.65] Diagnosis: Essential (primary) hypertension[ICD10: I10] Diagnosis: Major depressive disorder, recurrent, in partial remission[ICD10: F33.41] Maude Man MD, [facility] CPT-4: 17391 09/18/2017 ([id number]) 67093 EST. P ATIENT, LEVEL IV Diagnosis: Pouchitis[ICD10: K91.850] Diagnosis: Other fatigue[ICD10: R53.83] Diagnosis: Type 2 diabetes mellitus with hyperglycemia[ICD10: E11.65] Diagnosis: Essential (primary) hypertension[ICD10: I10] Diagnosis: Orthostatic hypotension[ICD10: I95.1] Maude Man MD, [facility] CPT-4: 99046 08/23/2017 ([id number]) Miscellaneou s no charge Diagnosis: Type 2 diabetes mellitus with hyperglycemia[ICD10: E11.65] Shae Man MD, [facility] CPT-4: 98044 06/25/2017 ([id number]) 56379 EST. P ATIENT, LEVEL IV Diagnosis: Type 2 diabetes mellitus with hyperglycemia[ICD10: E11.65] Maude Man MD, [facility] CPT-4: 59996 06/11/2017 ([id number]) 01880 EST. P ATIENT, LEVEL IV Diagnosis: Type 2 diabetes mellitus with hyperglycemia[ICD10: E11.65] Diagnosis: Essential (primary) hypertension[ICD10: I10] Diagnosis: Acute recurrent maxillary sinusitis[ICD10: J01.01] Ana Man MD, [facility] CPT-4: 17712 06/04/2017 OFFICE VISIT, NEW - LEVEL 4 Diagnosis: Left lower quadrant pain[ICD10: R10.32] Diagnosis: Other ulcerative colitis with unspecified complications[ICD10: K51.819] Diagnosis: Essential (primary) hypertension[ICD10: I10] Diagnosis: Type 2 diabetes mellitus without complications[ICD10: E11.9] Diagnosis: Major depressive disorder, recurrent, in partial remission[ICD10: F33.41] Diagnosis: Melena[ICD10: K92.1] [facility] CPT-4: 86351 04/24/2017 Plan of Care Planned Activity Notes C odes Status Date Visit Plan: URI - Pt advised to [...] edema. 05/30/2018 Appointment: Shae Guerrero WPtel: [address] [place], [place] [phone] (30 min) [facility] 05/30/2018 Patient Education: Patient Medication Summary Completed 05/30/2018 Care Plan: Referral Order SNOMED-CT : [id number] Pending 05/24/2018 Visit Plan: Diabetes Mellitus - [...] not improve. 05/23/2018 Appointment: Shae Guerrero WPtel: [facility] (30 min) Complex 05/23/2018 Patient Education: Patient Medication Summary Completed 05/23/2018 Patient Education: Diabetes Completed 05/23/2018 Care Plan: Urine Culture Pending 05/23/2018 Appointment: Ana Burrell WPtel: [phone] [place] (30 min) Complex 05/20/2018 Care Plan: CT HEAD/BRAIN W/O DYE LOINC : 74696-0 Pending 05/08/2018 Visit Plan: Abdominal pain -UA [...] adequate hydration 05/06/2018 Appointment: Ana Burrell WPtel: [phone] [place] (15 min) Moderate 05/06/2018 Patient Education: [...] control. 04/30/2018 [facility]ment[phone] [facility] ([facility] Complex 04/30/2018 Patient Education: Patient [...] worse 03/19/2018 Appointment: Ana Burrell WPtel: [phone] [phone] (30 min) Complex 03/19/2018 Patient Education: Patient [...] appt 02/01/2018 Appointment: Ana Burrell WPtel: [phone] [phone] [place] (30 min) Complex 02/01/2018 Patient Education: Patient Medication Summary Completed 02/01/2018 Patient Education: Back Pain Completed 02/01/2018 Patient Education: Hypertension Completed 02/01/2018 Appointment: Maude Man WPtel: [phone] [facility] [place] (15 min) Moderate 01/24/2018 Referral: Megha Garcia Referral Completed 01/15/2018 Visit Plan: Diabetes Mellitus - [facility] ontrolled - per recent FSBS reports. I [...] made. 12/13/2017 Appointment: Maude Man [facility]el[facility] [phone] [facility] [place] (15 min) Moderate 12/13/2017 Patient Education: Patient Medication Summary Completed 12/13/2017 Patient Education: Diabetes Completed 12/13/2017 Patient Education: Hypertension Completed 12/13/2017 Care Plan: Referral Order SNOMED-CT : [id number] Pending 12/13/2017 Appointment: Maude Man [facility]Ptel[facility] [phone] [facility] [place] (15 min) Moderate 11/26/2017 Visit Plan: [...] followed through 09/18/2017 Appointment: Maude Man WPtel: [facility] (15 min) Moderate 09/18/2017 Patient Education: Patient Medication Summary Completed 09/18/2017 Referral: External, Ordering Provider Patient informed. Referral info faxed. Completed 09/17/2017 Appointment: Maude Man WPtel: [facility] [place] (15 min) Moderate 09/06/2017 Visit Plan: [...] Dr. Gracia. 08/23/2017 Appointment: Maude Man WPtel: [facility] (15 min) Moderate 08/23/2017 Patient Education: Patient Medication Summary Completed 08/23/2017 Care Plan: Comp Metabolic Cancelled 08/23/2017 Care Plan: Cbc With Differential Cancelled 08/23/2017 Care Plan: %Hba1C LOIN C : 88742-0 Cancelled 08/23/2017 Care Plan: Magnesium Cancelled 08/23/2017 Care Plan: Referral Order SNOMED-CT : [id number] Pending 08/23/2017 Appointment: Maude Man WPtel: [facility] (15 min) Moderate 08/13/2017 Visit Plan: CGM removed - pt tolera jomar procedure well - no changes at this time. 06/25/2017 Patient Education: Patient Medication Summary Completed 06/25/2017 Appointment: Maude Man WPtel: [facility] [place] (15 min) Moderate 06/21/2017 Visit Plan: [...] glucose control. 06/20/2017 Appointment: Shae Guerrero WPtel: [id number] ([facility] 06/20/2017 Patient Education: Patient Medication Summary Completed 06/20/2017 Visit Plan: Diabetes Mellitus - [facility] ontrolled - per recent FSBS reports. I [...] Summary Completed 06/04/2017 Appointment: Ana Burrell WPtel: [address] [place], [place] [phone] (30 min) Complex 05/31/2017 Appointment: Ana Burrell WPtel: [address] [place], [place] [phone] (30 min) Complex 05/29/2017 Appointment: Ana Burrell WPtel: [address] [place], [place] [phone] (30 min) Complex 05/24/2017 Visit Plan: Left [...] current medications. 04/24/2017 Appointment: Ana Burrell WPtel: [address] [place], [place] [phone] [place] [address] New Patient 04/24/2017 Patient Education: Patient Medication Summary Completed 04/24/2017 Appointment: Shae Guerrero WPtel: [address] [place], [place] [id number] New Patient 04/20/2017 Referral: External, Ordering Provider [...]
--- OUTSIDE RECORDS SUMMARY | 2019-01-29 06:09 | XMS REPORT | CCD ---
Author Author Baylee Burrell Organization Maude Man MD, [facility] Address [address] [place] [address] Phone Care Team Providers Care Plate Driller Name Role Phone PP Unavailable CCM Unavailable Summary Purpose Interface Exchange Insurance Providers Payer name Policy type / Coverage type Covered libertarian ID Effective Begin Date Effective End Date WPS Medicare Part B Blue Cross/Blue Shield [id number] Unknown Blue Cross Blue Shield [facility] e Cross/Blue Shield [id number] Un known Blue Cross/Blue Shield [id number] Unknown Family history Sister Diagnosis Age At [...] 1 04/24/2017 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/24/[address]: 223337368 Never smoker 04/24/[address]: 769179976 Never drinks alcohol 04/24/2017 Allergies, Adverse Reactions, Alerts Substance Reaction Codes Entered Date Inactivated Date Status Levaquin RxNorm: 34643 04/24/2017 No Inactive Date Active Past Medical [...] Fill Instructions Lasix 20 mg tablet RxNorm: 236207 Tablet(s) PO Lasix 40mg daily x 3 days, then 20mg daily as needed for swelling or weight gain over 3 lbs 05/30/2018 No Stop Date Active Augmentin 500 mg-125 mg tablet RxNorm: 091500 1 Tablet(s) PO TID 05/30/2018 06/08/2018 Active potassium chloride E R 10 mEq tablet,extended release RxNorm: 021926 Tablet(s) potassium 20meq daily x 3 days then 10meq daily ONLY when taking the lasix. 05/30/2018 No Stop Date Active tramadol 50 mg tablet RxNorm: 923121 1 Tablet(s) PO Q6 PRN 05/29/2018 No Stop Date Active Basaglar KwikPen U-1 00 Insulin 100 unit/mL (3 mL) subcutaneous RxNorm: 4997037 50 Unit(s) SQ daily 05/29/2018 12/24/2018 Active qty sufficient for 1 month potassium chloride E R 20 mEq tablet,extended release RxNorm: 496941 1 Tablet(s) PO daily 05/23/2018 05/25/2018 Inactive Lasix 40 mg tablet RxNorm: 380716 1 Tablet(s) PO daily 05/23/2018 05/25/2018 Inactive Keflex 500 mg capsule RxNorm: 809085 1 Capsule(s) PO TID 05/23/2018 05/29/2018 Inactive Zofran 4 mg tablet RxNorm: 429374 1 Tablet(s) PO Q6 PRN 05/06/2018 No Stop Date Active tramadol 50 mg tablet RxNorm: 492421 1 Tablet(s) PO Q6 PRN 05/06/2018 05/28/2018 Inactive Basaglar KwikPen U-1 00 Insulin 100 unit/mL (3 mL) subcutaneous RxNorm: 2597322 46 Unit(s) SQ daily 05/03/2018 05/28/2018 Inactive qty sufficient for 1 month doxycycline hyclate 100 mg tablet RxNorm: 6612757 1 Tablet(s) PO BID 03/19/2018 03/25/2018 Inactive mupirocin 2 % topica l ointment RxNorm: 343984 1 Application TOP BID 03/19/2018 03/28/2018 Inactive Basaglar KwikPen U-1 00 Insulin 100 unit/mL (3 mL) subcutaneous RxNorm: 0798535 45 Unit(s) SQ daily 03/06/2018 05/02/2018 Inactive Basaglar KwikPen U-1 00 Insulin 100 unit/mL (3 mL) subcutaneous RxNorm: 9190393 45 Unit(s) SQ daily 03/06/2018 03/05/2018 Inactive Toujeo SoloStar U-30 0 Insulin 300 unit/mL (1.5 mL) subcutaneous pen RxNorm: 8856674 Unit(s) INJECT 45 UNITS UNDER THE SKIN DAILY 02/22/2018 03/05/2018 Inactive 30 d ay supply Toujeo SoloStar U-30 0 Insulin 300 unit/mL (1.5 mL) subcutaneous pen RxNorm: 5838629 INJECT 40 UNITS UNDER THE SKIN DAILY 02/21/2018 02/21/2018 Inactive Keflex 500 mg capsule RxNorm: 935529 1 Capsule(s) PO TID 02/01/2018 02/07/2018 Inactive Toujeo SoloStar U-30 0 Insulin 300 unit/mL (1.5 mL) subcutaneous pen RxNorm: 4945871 45 Unit(s) SQ daily 12/26/2017 No Stop Date Active atorvastatin 40 mg t ablet RxNorm: 616012 Tablet(s) TAKE ONE-REA LF TABLET BY MOUTH EVERY EVENING 12/26/2017 No Stop Date Active Restasis 0.05 % eye drops in a dropperette RxNorm: 340534 INSTILL ONE DROP IN E ACH EYE EVERY 12 HOURS 12/24/2017 04/22/2018 Inactive atorvastatin 40 mg t ablet RxNorm: 685303 TAKE ONE TABLET BY MO UTH EVERY EVENING 12/17/2017 12/25/2017 In active venlafaxine ER 150 m g tablet,extended release 24 hr RxNorm: 362874 TAKE ONE CAPSULE BY MOUTH DAILY 10/11/2017 07/07/2018 Active metoprolol succinate ER 50 mg tablet,extended release 24 hr RxNorm: 638386 TAKE ONE TABLET BY MOUTH DAILY 10/11/2017 07/07/2018 Active atorvastatin 40 mg t ablet RxNorm: 502623 TAKE ONE TABLET BY MO UTH EVERY EVENING 10/11/2017 12/16/2017 In active metoprolol succinate ER 25 mg tablet,extended release 24 hr RxNorm: 289434 1/2 Tablet(s) PO daily 09/18/2017 03/16/2018 Inactive metronidazole 500 mg tablet RxNorm: 912789 1 Tablet(s) PO TID 08/23/2017 09/01/2017 Inactive Diflucan 150 mg tablet RxNorm: 911772 1 Tablet(s) PO daily 08/23/2017 09/01/2017 Inactive atorvastatin 40 mg t ablet RxNorm: 561093 1 Tablet(s) PO QPM 08/02/2017 10/10/2017 Inactive Toujeo SoloStar U-30 0 Insulin 300 unit/mL (1.5 mL) subcutaneous pen RxNorm: 1030170 40 Unit(s) SQ daily 07/30/2017 12/25/2017 Inactive Novofine 32 32 gauge x 1/4" needle RxNorm: USE TO TEST BLOOD SUGAR ONC E DAILY 07/26/2017 04/16/2019 Ac tive Toujeo SoloStar U-30 0 Insulin 300 unit/mL (1.5 mL) subcutaneous pen RxNorm: 0100736 INJECT 24 UNITS UNDER THE SKIN EVERY EVENING 07/26/2017 07/29/2017 Inactive Apidra U-100 Insulin 100 unit/mL subcutaneous solution RxNorm: 237269 5 Unit(s) SQ AC 06/06/2017 06/06/2017 Inactive start with 5 units with breakfast -call with blood sugars in 1 week Keflex 500 mg capsule RxNorm: 131286 1 Capsule(s) PO TID 06/04/2017 06/10/2017 Inactive Apidra U-100 Insulin 100 unit/mL subcutaneous solution RxNorm: 273600 5 Unit(s) SQ AC 06/04/2017 06/05/2017 Inactive start with 5 units with breakfast -call with blood sugars in 1 week Restasis 0.05 % eye drops in a dropperette RxNorm: 599281 1 gtts ophthalmic (ey e) Q12H 06/04/2017 07/03/2017 Inactive Toujeo SoloStar U-30 0 Insulin 300 unit/mL (1.5 mL) subcutaneous pen RxNorm: 1339100 28 Unit(s) SQ QPM x1 week, then 32 units daily. 04/26/2017 08/28/2017 Inactive Restasis MultiDose 0 .05 % eye drops RxNorm: 210271 1 Drop(s) ophthalmic (eye) daily - BID 04/24/2017 No Stop Date Active cyanocobalamin (vit B-12) 1,000 mcg/mL injection solution RxNorm: 230304 1 Milliliter(s) Inj QW -BIW 04/24/2017 07/22/2017 Inactive disp with syringes please Toujeo SoloStar U-30 0 Insulin 300 unit/mL (1.5 mL) subcutaneous pen RxNorm: 5382807 24 Unit(s) SQ QPM 04/24/2017 04/23/2017 Inactive Novofine 32 32 gauge x 1/4" needle RxNorm: 1 test Miscellaneous daily 04/24/2017 07/22/2017 In active E11.65 use with westley venlafaxine ER 150 m g tablet,extended release 24 hr RxNorm: 936733 1 Tablet(s) PO daily 04/24/2017 10/10/2017 Inactive cyanocobalamin (vit B-12) 1,000 mcg/mL injection solution RxNorm: 511268 1 Milliliter(s) Inj QW -BIW 04/24/2017 04/23/2017 Inactive metoprolol succinate ER 50 mg tablet,extended release 24 hr RxNorm: 907494 1 Tablet(s) PO daily 04/24/2017 09/17/2017 Inactive Toujeo SoloStar U-30 0 Insulin 300 unit/mL (1.5 mL) subcutaneous pen RxNorm: 6992487 24 Unit(s) SQ QPM 04/24/2017 04/25/2017 Inactive Centrum Silver tablet RxNorm: 1 Tablet(s) PO daily No Start Date Active Novolog U-100 Insuli n aspart 100 unit/mL subcutaneous solution RxNorm: 190810 5 Unit(s) SQ AC No Start Date Active magnesium 250 mg tablet RxNorm: 1 Tablet(s) PO as needed No Start Date Active Probiotic Blend oral RxNorm: 725848 oral No Start Date Active Calcium 600 + D(3) 6 00 mg (1,500 mg)-400 unit tablet RxNorm: 683421 1 Tablet(s) PO as needed No Start Date Active atorvastatin 40 mg t ablet RxNorm: 088997 1 Tablet(s) PO QPM No Start Date 08/01/2017 Inactive Novofine 32 32 gauge x 1/4" needle RxNorm: 1 Miscellaneous daily No Start Date 04/23/2017 Inactive cyanocobalamin (vit B-12) 1,000 mcg/mL injection solution RxNorm: 988717 1 Milliliter(s) Inj No Start Date 04/23/2017 Inactive metoprolol succinate ER 50 mg tablet,extended release 24 hr RxNorm: 620253 1 Tablet(s) PO daily No Start Date 04/23/2017 Inactive lisinopril 5 mg tablet RxNorm: 807222 1 Tablet(s) PO QPM No Start Date 04/23/2017 Inactive Restasis MultiDose 0 .05 % eye drops RxNorm: 955992 Drop(s) ophthalmic (e ye) No Start Date 04/23/2017 Inactive venlafaxine ER 150 m g capsule,extended release 24 hr RxNorm: 254079 1 Capsule(s) PO daily No Start Date [...] Code Item Item Code Result Date Lipase Kdi737 LIPASE 26 U/L 05/06/2018 Comp Metabolic Fwj328 NA 140 mEq/L 05/06/2018 Comp Metabolic Bbj893 K 4.5 mEq/L 05/06/2018 Comp Metabolic Jgt173 CL 109 mEq/L 05/06/2018 Comp Metabolic Xix332 CO2 24.0 mEq/L 05/06/2018 Comp Metabolic Zki599 AN ION GAP 12 05/06/2018 Comp Metabolic Zhy862 GL UCOSE 341 mg/dL 05/06/2018 Comp Metabolic Rdy543 Cr eat 1.6 mg/dL 05/06/2018 Comp Metabolic Nsr088 eG FR 34 ml/min/1.73m2 05/06 Comp Metabolic Wnw888 BUN 39 mg/dL 05/06/2018 Comp Metabolic Ofs297 B/ C Ratio 24.7 Ratio 05/06/2018 Comp Metabolic Zma974 CA LCIUM 9.1 mg/dL 05/06/2018 Comp Metabolic Qtl213 AL K PHOS 61 U/L 05/06/2018 Comp Metabolic Dqp382 T(SGOT) 21 U/L 05/06/2018 Comp Metabolic Vsd670 AL T(SGPT) 28 U/L 05/06/2018 Comp Metabolic Okx164 BI LI T 0.3 mg/dL 05/06/2018 Comp Metabolic Sfb240 AL BUMIN 3.8 g/dL 05/06/2018 Comp Metabolic Zyr656 TP RO 6.1 g/dL 05/06/2018 Comp Metabolic Pwz821 GL OB 2.4 g/dL 05/06/2018 Comp Metabolic Bxz028 A/ G Ratio 1.6 Ratio 05/06/2018 Comp Metabolic Lrj061 Os mo 302 mOsmo 05/06/2018 Amylase Ord34 AMYLASE 48 U/L 05/06/2018 Lipid Ord30 CHOL 171 mg/dL 12/13/2017 Lipid Ord30 HDL 64.0 mg/dl 12/13/2017 Lipid Ord30 TRIG 89 mg/dL 12/13/2017 Lipid Ord30 LDL 89 mg/dL 12/13/2017 Lipid Ord30 C/HDL 2.7 Ratio 12/13/2017 Comp Metabolic Glh734 NA 140 mEq/L 12/13/2017 Comp Metabolic Rdz971 K 4.4 mEq/L 12/13/2017 Comp Metabolic Fzc886 CL 107 mEq/L 12/13/2017 Comp Metabolic Xva251 CO2 23.0 mEq/L 12/13/2017 Comp Metabolic Wdf496 AN ION GAP 14 12/13/2017 Comp Metabolic Srb494 GL UCOSE 179 mg/dL 12/13/2017 Comp Metabolic Vtu082 Cr eat 1.7 mg/dL 12/13/2017 Comp Metabolic Vtf407 eG FR 31 ml/min/1.73m2 12/13 Comp Metabolic Bsg989 BUN 40 mg/dL 12/13/2017 Comp Metabolic Ttw958 B/ C Ratio 23.3 Ratio 12/13/2017 Comp Metabolic Yek233 CA LCIUM 10.3 mg/dL 12/13/2017 Comp Metabolic Mvo788 AL K PHOS 54 U/L 12/13/2017 Comp Metabolic Xss377 T(SGOT) 41 U/L 12/13/2017 Comp Metabolic Gho437 AL T(SGPT) 44 U/L 12/13/2017 Comp Metabolic Zkr139 BI LI T 0.4 mg/dL 12/13/2017 Comp Metabolic Vxr162 AL BUMIN 4.9 g/dL 12/13/2017 Comp Metabolic Qmz084 TP RO 7.7 g/dL 12/13/2017 Comp Metabolic Ixv636 GL OB 2.8 g/dL 12/13/2017 Comp Metabolic Alr137 A/ G Ratio 1.8 Ratio 12/13/2017 Comp Metabolic Bnd560 Os mo 294 mOsmo 12/13/2017 Tsh Ord6 TSH (3rd IS) 2.56 uIU/mL 12/13/2017 %Hba1C Pvk796 % HbA1c 28382-2 9.6 % 12/13/2017 %Hba1C Zth647 Gluc Ave 229 mg/dL 12/13/2017 Cbc With [...] 32.0 pg 12/13/2017 Cbc With Differential Ord2 [place]% 8.0 % 12/13/2017 Cbc With Differential Ord2 [...] 1.44 K/ul 12/13/2017 Cbc With Differential Ord2 [place] ABS# 0.5 K/ul 12/13/2017 Cbc With Differential Ord2 Eos ABS# 0.1 K/ul 12/13/2017 Cbc With Differential Ord2 Baso ABS# 0.0 K/ul 12/13/2017 %Hba1C Zos372 % HbA1c 74885-1 13.1 % 04/24/2017 %Hba1C Xvc936 Gluc Ave 329 mg/dL 04/24/2017 Cbc With [...] 32.0 pg 04/24/2017 Cbc With Differential Ord2 [place]% 11.0 % 04/24/2017 Cbc With Differential Ord2 [...] 2.39 K/ul 04/24/2017 Cbc With Differential Ord2 [place] ABS# 0.8 K/ul 04/24/2017 Cbc With Differential Ord2 Eos ABS# 0.1 K/ul 04/24/2017 Cbc With Differential Ord2 Baso ABS# 0.0 K/ul 04/24/2017 Comp Metabolic Web498 NA 142 mEq/L 04/24/2017 Comp Metabolic Zlt490 K 3.8 mEq/L 04/24/2017 Comp Metabolic Zin296 CL 105 mEq/L 04/24/2017 Comp Metabolic Aau043 CO2 27.0 mEq/L 04/24/2017 Comp Metabolic Wae189 AN ION GAP 14 04/24/2017 Comp Metabolic Xle796 GL UCOSE 203 mg/dL 04/24/2017 Comp Metabolic Ucl669 Cr eat 1.9 mg/dL 04/24/2017 Comp Metabolic Svt086 eG FR 28 ml/min/1.73m2 04/24 Comp Metabolic Fyr313 BUN 26 mg/dL 04/24/2017 Comp Metabolic Qtd036 B/ C Ratio 13.6 Ratio 04/24/2017 Comp Metabolic Ahp191 CA LCIUM 9.9 mg/dL 04/24/2017 Comp Metabolic Qcb941 AL K PHOS 79 U/L 04/24/2017 Comp Metabolic Rsu773 T(SGOT) 25 U/L 04/24/2017 Comp Metabolic Duj606 AL T(SGPT) 36 U/L 04/24/2017 Comp Metabolic Sqy624 BI LI T 0.3 mg/dL 04/24/2017 Comp Metabolic Oql497 AL BUMIN 4.5 g/dL 04/24/2017 Comp Metabolic Tmx542 TP RO 6.9 g/dL 04/24/2017 Comp Metabolic Zpu169 GL OB 2.5 g/dL 04/24/2017 Comp Metabolic Nyt222 A/ G Ratio 1.8 Ratio 04/24/2017 Comp Metabolic Buk165 Os mo 294 mOsmo 04/24/2017 Review of [...] Date URINALYSIS NONAUTO W /O SCOPE CPT-4: 47202 05/06/2018 GLUC MONITOR CONT PH YS I&R CPT-4: 12939 09/18/2017 GLUCOSE MONITORING CONT CPT-4: 37603 06/20/2017 Vital Signs Date Vital 05/30/2018 Blood Pressure 1: 144/64 Code: 8480-6 BMI: 22.4 Code: 42119-2 Heart Rate 1: 89 bpm Height: 5'6" SpO2: 98% Temperature: 37.2 (C ) / 98.9 (F) Weight: 139 lbs 05/23/2018 Blood Pressure 1: 146/66 Code: 8480-6 BMI: 22.4 Code: 55732-3 Heart Rate 1: 85 bpm Height: 5'6" SpO2: 97% Weight: 139 lbs 05/06/2018 Blood Pressure 1: 128/86 Code: 8480-6 BMI: 20.8 Code: 64717-1 Heart Rate 1: 96 bpm Height: 5'6" SpO2: 96% Weight: 129 lbs 04/30/2018 Blood Pressure 1: 124/66 Code: 8480-6 Heart Rate 1: 87 bpm Height: 5'6" SpO2: 98% 03/19/2018 Blood Pressure 1: 142/84 Code: 8480-6 BMI: 20.5 Code: 05937-2 Heart Rate 1: 88 bpm Height: 5'6" SpO2: 98% Temperature: 36.6 (C ) / 97.9 (F) Weight: 129 lbs 02/01/2018 Blood Pressure 1: 110/52 Code: 8480-6 BMI: 19.9 Code: 58523-6 Height: 5'6" Weight: 125 lbs 12/13/2017 Blood Pressure 1: 140/80 Code: 8480-6 BMI: 19.9 Code: 96518-4 Heart Rate 1: 72 bpm Height: 5'6" SpO2: 95% Weight: 125 lbs 09/18/2017 Blood Pressure 1: 126/82 Code: 8480-6 BMI: 20.0 Code: 01067-7 Heart Rate 1: 103 bpm Height: 5'6" SpO2: 98% Weight: 126 lbs 08/23/2017 Blood Pressure 1: 118/62 Code: 8480-6 Heart Rate 1: 110 bpm Height: 5'6" SpO2: 95% Temperature: 37.1 (C ) / 98.7 (F) 06/20/2017 Heigh t: Weight: 06/11/2017 Blood Pressure 1: 142/76 Code: 8480-6 BMI: 21.3 Code: 64218-4 Heart Rate 1: 102 bpm Height: 5'6" SpO2: 97% Weight: 134 lbs 06/04/2017 Blood Pressure 1: 160/84 Code: 8480-6 BMI: 20.8 Code: 93632-5 Heart Rate 1: 87 bpm Height: 5'6" SpO2: 97% Weight: 131 lbs 04/24/2017 Blood Pressure 1: 132/80 Code: 8480-6 BMI: 20.8 Code: 62519-2 Heart Rate 1: 84 bpm Height: 5'6" [...] Encounters Encounter Performer Loca tion Codes Date 93523 EST. PATIENT, LEVEL III Diagnosis: Acute laryngopharyngitis[ICD10: J06.0] Diagnosis: Other allergic rhinitis[ICD10: J30.89] Diagnosis: Localized edema[ICD10: R60.0] Shae Man MD, [facility] CPT-4: 90485 05/30/2018 21970 EST. PATIENT, LEVEL III Diagnosis: Dysuria[ICD10: R30.0] Diagnosis: Type 2 diabetes mellitus with hyperglycemia[ICD10: E11.65] Diagnosis: Localized edema[ICD10: R60.0] Shae Man MD, [facility] CPT-4: 85927 05/23/2018 ([id number]) 75853 EST. P ATIENT, LEVEL IV Diagnosis: Low back pain[ICD10: M54.5] Diagnosis: Left upper quadrant pain[ICD10: R10.12] Diagnosis: Pain in left hip[ICD10: M25.552] Diagnosis: Pain in left shoulder[ICD10: M25.512] Diagnosis: Repeated falls[ICD10: R29.6] Diagnosis: Unsteadiness on feet[ICD10: R26.81] Diagnosis: Chronic kidney disease, stage 3 (moderate)[ICD10: N18.3] Ana Man MD, [facility] CPT-4: 08559 05/06/2018 86579 EST. PATIENT, LEVEL III Diagnosis: Low back pain[ICD10: M54.5] Diagnosis: Pain in left hip[ICD10: M25.552] Diagnosis: Repeated falls[ICD10: R29.6] Diagnosis: Unsteadiness on feet[ICD10: R26.81] Diagnosis: Headache[ICD10: R51] Diagnosis: Type 2 diabetes mellitus with hyperglycemia[ICD10: E11.65] Shae Man MD, [facility] CPT-4: 42917 04/30/2018 ([id number]) 99260 EST. P ATIENT, LEVEL III Diagnosis: Acute recurrent maxillary sinusitis[ICD10: J01.01] Diagnosis: Rash and other nonspecific skin eruption[ICD10: R21] Ana Man MD, [facility] CPT-4: 06653 03/19/2018 ([id number]) 03481 EST. P ATIENT, LEVEL IV Diagnosis: Acute recurrent maxillary sinusitis[ICD10: J01.01] Diagnosis: Low back pain[ICD10: M54.5] Diagnosis: Unsteadiness on feet[ICD10: R26.81] Diagnosis: Essential (primary) hypertension[ICD10: I10] Ana Man MD, [facility] CPT-4: 54026 02/01/2018 ([id number]) 87453 EST. P ATIENT, LEVEL IV Diagnosis: Type 2 diabetes mellitus with hyperglycemia[ICD10: E11.65] Diagnosis: Essential (primary) hypertension[ICD10: I10] Diagnosis: Other fatigue[ICD10: R53.83] Maude Man MD, [facility] CPT-4: 96097 12/13/2017 ([id number]) 93146 EST. P ATIENT, LEVEL IV Diagnosis: Type 2 diabetes mellitus with hyperglycemia[ICD10: E11.65] Diagnosis: Essential (primary) hypertension[ICD10: I10] Diagnosis: Major depressive disorder, recurrent, in partial remission[ICD10: F33.41] Maude Man MD, [facility] CPT-4: 15361 09/18/2017 ([id number]) 86140 EST. P ATIENT, LEVEL IV Diagnosis: Pouchitis[ICD10: K91.850] Diagnosis: Other fatigue[ICD10: R53.83] Diagnosis: Type 2 diabetes mellitus with hyperglycemia[ICD10: E11.65] Diagnosis: Essential (primary) hypertension[ICD10: I10] Diagnosis: Orthostatic hypotension[ICD10: I95.1] Maude Man MD, [facility] CPT-4: 48935 08/23/2017 ([id number]) Miscellaneou s no charge Diagnosis: Type 2 diabetes mellitus with hyperglycemia[ICD10: E11.65] Shae Man MD, [facility] CPT-4: 11351 06/25/2017 ([id number]) 65539 EST. P ATIENT, LEVEL IV Diagnosis: Type 2 diabetes mellitus with hyperglycemia[ICD10: E11.65] Maude Man MD, [facility] CPT-4: 83085 06/11/2017 ([id number]) 31273 EST. P ATIENT, LEVEL IV Diagnosis: Type 2 diabetes mellitus with hyperglycemia[ICD10: E11.65] Diagnosis: Essential (primary) hypertension[ICD10: I10] Diagnosis: Acute recurrent maxillary sinusitis[ICD10: J01.01] Ana Man MD, [facility] CPT-4: 94892 06/04/2017 OFFICE VISIT, NEW - LEVEL 4 Diagnosis: Left lower quadrant pain[ICD10: R10.32] Diagnosis: Other ulcerative colitis with unspecified complications[ICD10: K51.819] Diagnosis: Essential (primary) hypertension[ICD10: I10] Diagnosis: Type 2 diabetes mellitus without complications[ICD10: E11.9] Diagnosis: Major depressive disorder, recurrent, in partial remission[ICD10: F33.41] Diagnosis: Melena[ICD10: K92.1] Ana Man MD, [facility] CPT-4: 23024 04/24/2017 Plan of Care Planned Activity Notes [...] peripheral edema. 05/30/2018 Appointment: Shae Guerrero WPtel: [address] [place], [place] [address] (30 min) [facility] 05/30/2018 Patient Education: Patient Medication Summary Completed 05/30/2018 Care Plan: Referral Order SNOMED-CT : [id number] Pending 05/24/2018 Visit Plan: Diabetes Mellitus - [facility] ontrolled - increase basaglar to 50 units [...] not improve. 05/23/2018 Appointment: Shae Guerrero WPtel: [facility] (30 min) Complex 05/23/2018 Patient Education: Patient Medication Summary Completed 05/23/2018 Patient Education: Diabetes Completed 05/23/2018 Care Plan: Urine Culture Pending 05/23/2018 Appointment: Ana Burrell WPtel: [phone] [phone] (30 min) Complex 05/20/2018 Care Plan: CT HEAD/BRAIN W/O DYE LOINC : 86658-8 Pending 05/08/2018 Visit Plan: Abdominal pain -UA [...] adequate hydration 05/06/2018 Appointment: Ana Burrell WPtel: [phone] (15 min) Moderate 05/06/2018 Patient Education: Patient [...] control. 04/30/2018 Appointment: Shae Guerrero WPtel: [phone] [facility] (30 min) Complex 04/30/2018 Patient Education: Patient [...] any worse 03/19/2018 Appointment: Ana Burrell WPtel: [phone] [phone] (30 min) Complex 03/19/2018 Patient Education: Patient [...] appt 02/01/2018 Appointment: Ana Burrell WPtel: [phone] [phone] [place] (30 min) Complex 02/01/2018 Patient Education: Patient Medication Summary Completed 02/01/2018 Patient Education: Back Pain Completed 02/01/2018 Patient Education: Hypertension Completed 02/01/2018 Appointment: Maude Man WPtel: [phone] [facility] (15 min) Moderate 01/24/2018 Referral: Megha Garcia Referral Completed 01/15/2018 Visit Plan: Diabetes Mellitus - [facility] ontrolled - per recent FSBS reports. [...] made. 12/13/2017 [phone] [facility] ([facility] Moderate 12/13/2017 Patient Education: Patient Medication Summary Completed 12/13/2017 Patient Education: Diabetes Completed 12/13/2017 Patient Education: Hypertension Completed 12/13/2017 Care Plan: Referral Order SNOMED-CT : [id number] Pending 12/13/2017 [facility]ment: [facility] [phone] [facility] ([facility] min) Moderate 11/26/2017 Visit Plan: Diabetes [...] through 09/18/2017 [facility]ment: [facility] [phone] [facility] ([facility] min) Moderate 09/18/2017 Patient Education: Patient Medication Summary Completed 09/18/2017 Referral: External, Ordering Provider Patient informed. Referral info faxed. Completed 09/17/2017 Appointment: [phone] [facility] [place] (15 min) Moderate 09/06/2017 Visit [...] Dr. Gracia. 08/23/2017 Appointment: Maude Man WPtel: [facility] (15 min) Moderate 08/23/2017 Patient Education: Patient Medication Summary Completed 08/23/2017 Care Plan: Comp Metabolic Cancelled 08/23/2017 Care Plan: Cbc With Differential Cancelled 08/23/2017 Care Plan: %Hba1C LOIN C : 12860-8 Cancelled 08/23/2017 Care Plan: Magnesium Cancelled 08/23/2017 Care Plan: Referral Order SNOMED-CT : [id number] Pending 08/23/2017 Appointment: Maude Man WPtel: [facility] (15 min) Moderate 08/13/2017 Visit Plan: CGM removed - pt tolera jomar procedure well - no changes at this time. 06/25/2017 Patient Education: Patient Medication Summary Completed 06/25/2017 Appointment: Maude Man WPtel: [facility] [place] (15 min) Moderate 06/21/2017 Visit Plan: [...] glucose control. 06/20/2017 Visit Plan: Continuous glucose heiid tor placed - pt tolerated procedure well [...] glucose control. 06/20/2017 Appointment: Shae Guerrero WPtel: [address] [place], [place] [address] (30 min) [facility] 06/20/2017 Patient Education: Patient Medication Summary Completed 06/20/2017 Visit Plan: Diabetes Mellitus - [facility] ontrolled - per recent FSBS reports. [...] Summary Completed 06/04/2017 Appointment: Ana Burrell WPtel: [facility] [facility] [place] [address] (30 min) Complex 05/31/2017 Appointment: Ana Burrell WPtel: [facility] [facility] [place] [address] (30 min) Complex 05/29/2017 Appointment: Ana Burrell WPtel: [address] [place], [place] [phone] (30 min) Complex 05/24/2017 Visit Plan: Left [...] current medications. 04/24/2017 Appointment: Ana Burrell WPtel: [address] [place], [place] [phone] [place] [address] New Patient 04/24/2017 Patient Education: Patient Medication Summary Completed 04/24/2017 Appointment: Shae Guerrero WPtel: [address] [place] [address] New Patient 04/20/2017 Referral: External, Ordering Provider [...] in 1 week with blood sugars continue toujetamica keflex for sinus infection . Diabetes Mellitus [...]
--- OUTSIDE RECORDS SUMMARY | 2019-01-29 06:10 | XMS REPORT | CCD ---
Author Author Baylee Burrell Organization Maude Man MD, [facility] Address [address] [place] [address] Phone Care Team Providers Care Program Rep Name Role Phone PP Unavailable CCM Unavailable Summary Purpose Interface Exchange Insurance Providers Payer name Policy type / Coverage type Covered democrat ID Effective Begin Date Effective End Date WPS Medicare Part B Blue Cross/Blue Shield [id number] Unknown Blue Cross Blue Shield [facility] [place] e Cross/Blue Shield [id number] Un known Blue Cross/Blue Shield [id number] Unknown Family history Sister Diagnosis Age At [...] of faculty 04/24/[address]: 024653255 Never smoker 04/24/[address]: 197194178 Never drinks alcohol 04/24/2017 Allergies, Adverse Reactions, Alerts Substance Reaction Codes Entered Date Inactivated Date Status Levaquin RxNorm: 16399 04/24/2017 No Inactive Date Active Past Medical History Illness Codes Condition Status Onset Date Resolved Date Dysuria ICD-9: 788.1 ICD-10: R30.0 Active 05/23/2018 Unknown Localized edema ICD-9: 782.3 ICD-10: R60.0 Active 05/23/2018 Unknown Type 2 diabetes karina [...] Condition Codes Effectiv e Dates Condition Status Dysuria ICD-9: 788.1 ICD-10: R30.0 05/23/2018 Active Localized edema ICD-9: 782.3 ICD-10: R60.0 05/23/2018 Active Type 2 diabetes karina itus [...] ICD-10: K51.819 04/24/2017 Active Type 2 diabetes kraina itus without complications ICD-9: 250.00 ICD-10: E11.9 04/24/2017 Active Medications Medication Codes Instruc tions Start Date Stop Date Sta tus Fill Instructions Sandee InfantePen U-1 00 Insulin 100 unit/mL (3 mL) subcutaneous RxNorm: 3745307 50 Unit(s) SQ daily 05/29/2018 12/24/2018 Active qty sufficient for 1 month Keflex 500 mg capsule RxNorm: 870986 1 Capsule(s) PO TID 05/23/2018 05/29/2018 Inactive potassium chloride E R 20 mEq tablet,extended release RxNorm: 787880 1 Tablet(s) PO daily 05/23/2018 05/25/2018 Inactive Lasix 40 mg tablet RxNorm: 749774 1 Tablet(s) PO daily 05/23/2018 05/25/2018 Inactive Zofran 4 mg tablet RxNorm: 647672 1 Tablet(s) PO Q6 PRN 05/06/2018 No Stop Date Active tramadol 50 mg tablet RxNorm: 081439 1 Tablet(s) PO Q6 PRN 05/06/2018 No Stop Date Active Basaglar KwikPen U-1 00 Insulin 100 unit/mL (3 mL) subcutaneous RxNorm: 9084152 46 Unit(s) SQ daily 05/03/2018 05/28/2018 Inactive qty sufficient for 1 month doxycycline hyclate 100 mg tablet RxNorm: 7801342 1 Tablet(s) PO BID 03/19/2018 03/25/2018 Inactive mupirocin 2 % topica l ointment RxNorm: 653671 1 Application TOP BID 03/19/2018 03/28/2018 Inactive Basaglar KwikPen U-1 00 Insulin 100 unit/mL (3 mL) subcutaneous RxNorm: 3799380 45 Unit(s) SQ daily 03/06/2018 05/02/2018 Inactive Basaglar KwikPen U-1 00 Insulin 100 unit/mL (3 mL) subcutaneous RxNorm: 1747530 45 Unit(s) SQ daily 03/06/2018 03/05/2018 Inactive Toujeo SoloStar U-30 0 Insulin 300 unit/mL (1.5 mL) subcutaneous pen RxNorm: 5217106 Unit(s) INJECT 45 UNITS UNDER THE SKIN DAILY 02/22/2018 03/05/2018 Inactive 30 d ay supply Toujeo SoloStar U-30 0 Insulin 300 unit/mL (1.5 mL) subcutaneous pen RxNorm: 6306508 INJECT 40 UNITS UNDER THE SKIN DAILY 02/21/2018 02/21/2018 Inactive Keflex 500 mg capsule RxNorm: 277868 1 Capsule(s) PO TID 02/01/2018 02/07/2018 Inactive Toujeo SoloStar U-30 0 Insulin 300 unit/mL (1.5 mL) subcutaneous pen RxNorm: 1835683 45 Unit(s) SQ daily 12/26/2017 No Stop Date Active atorvastatin 40 mg t ablet RxNorm: 550796 Tablet(s) TAKE ONE-REA LF TABLET BY MOUTH EVERY EVENING 12/26/2017 No Stop Date Active Restasis 0.05 % eye drops in a dropperette RxNorm: 377446 INSTILL ONE DROP IN E ACH EYE EVERY 12 HOURS 12/24/2017 04/22/2018 Inactive atorvastatin 40 mg t ablet RxNorm: 720325 TAKE ONE TABLET BY MO UTH EVERY EVENING 12/17/2017 12/25/2017 In active venlafaxine ER 150 m g tablet,extended release 24 hr RxNorm: 750267 TAKE ONE CAPSULE BY MOUTH DAILY 10/11/2017 07/07/2018 Active metoprolol succinate ER 50 mg tablet,extended release 24 hr RxNorm: 744127 TAKE ONE TABLET BY MOUTH DAILY 10/11/2017 07/07/2018 Active atorvastatin 40 mg t ablet RxNorm: 746488 TAKE ONE TABLET BY [facility] EVERY EVENING 10/11/2017 12/16/2017 In active metoprolol succinate ER 25 mg tablet,extended release 24 hr RxNorm: 252658 1/2 Tablet(s) PO daily 09/18/2017 03/16/2018 Inactive metronidazole 500 mg tablet RxNorm: 542513 1 Tablet(s) PO TID 08/23/2017 09/01/2017 Inactive Diflucan 150 mg tablet RxNorm: 937806 1 Tablet(s) PO daily 08/23/2017 09/01/2017 Inactive atorvastatin 40 mg t ablet RxNorm: 128791 1 Tablet(s) PO QPM 08/02/2017 10/10/2017 Inactive Toujeo SoloStar U-30 0 Insulin 300 unit/mL (1.5 mL) subcutaneous pen RxNorm: 4930545 40 Unit(s) SQ daily 07/30/2017 12/25/2017 Inactive Novofine 32 32 gauge x 1/4" needle RxNorm: USE TO TEST BLOOD SUGAR ONC E DAILY 07/26/2017 04/16/2019 Ac tive Toujeo SoloStar U-30 0 Insulin 300 unit/mL (1.5 mL) subcutaneous pen RxNorm: 6523664 INJECT 24 UNITS UNDER THE SKIN EVERY EVENING 07/26/2017 07/29/2017 Inactive Apidra U-100 Insulin 100 unit/mL subcutaneous solution RxNorm: 993511 5 Unit(s) SQ AC 06/06/2017 06/06/2017 Inactive start with 5 units with breakfast -call with blood sugars in 1 week Keflex 500 mg capsule RxNorm: 096447 1 Capsule(s) PO TID 06/04/2017 06/10/2017 Inactive Apidra U-100 Insulin 100 unit/mL subcutaneous solution RxNorm: 430867 5 Unit(s) SQ AC 06/04/2017 06/05/2017 Inactive start with 5 units with breakfast -call with blood sugars in 1 week Restasis 0.05 % eye drops in a dropperette RxNorm: 074714 1 gtts ophthalmic (ey e) Q12H 06/04/2017 07/03/2017 Inactive Toujeo SoloStar U-30 0 Insulin 300 unit/mL (1.5 mL) subcutaneous pen RxNorm: 2376887 28 Unit(s) SQ QPM x1 week, then 32 units daily. 04/26/2017 08/28/2017 Inactive Restasis MultiDose 0 .05 % eye drops RxNorm: 439174 1 Drop(s) ophthalmic (eye) daily - BID 04/24/2017 No Stop Date Active cyanocobalamin (vit B-12) 1,000 mcg/mL injection solution RxNorm: 316212 1 Milliliter(s) Inj QW -BIW 04/24/2017 07/22/2017 Inactive disp with syringes please Toujeo SoloStar U-30 0 Insulin 300 unit/mL (1.5 mL) subcutaneous pen RxNorm: 2260997 24 Unit(s) SQ QPM 04/24/2017 04/23/2017 Inactive Novofine 32 32 gauge x 1/4" needle RxNorm: 1 test Miscellaneous daily 04/24/2017 07/22/2017 In active E11.65 use with toudov venlafaxine ER 150 m g tablet,extended release 24 hr RxNorm: 462339 1 Tablet(s) PO daily 04/24/2017 10/10/2017 Inactive cyanocobalamin (vit B-12) 1,000 mcg/mL injection solution RxNorm: 081545 1 Milliliter(s) Inj QW -BIW 04/24/2017 04/23/2017 Inactive metoprolol succinate ER 50 mg tablet,extended release 24 hr RxNorm: 118125 1 Tablet(s) PO daily 04/24/2017 09/17/2017 Inactive Toujeo SoloStar U-30 0 Insulin 300 unit/mL (1.5 mL) subcutaneous pen RxNorm: 4956416 24 Unit(s) SQ QPM 04/24/2017 04/25/2017 Inactive Centrum Silver tablet RxNorm: 1 Tablet(s) PO daily No Start Date Active Novolog U-100 Insuli n aspart 100 unit/mL subcutaneous solution RxNorm: 905056 5 Unit(s) SQ AC No Start Date Active magnesium 250 mg tablet RxNorm: 1 Tablet(s) PO as needed No Start Date Active Probiotic Blend oral RxNorm: 745069 oral No Start Date Active Calcium 600 + D(3) 6 00 mg (1,500 mg)-400 unit tablet RxNorm: 066041 1 Tablet(s) PO as needed No Start Date Active atorvastatin 40 mg t ablet RxNorm: 426709 1 Tablet(s) PO QPM No Start Date 08/01/2017 Inactive Novofine 32 32 gauge x 1/4" needle RxNorm: 1 Miscellaneous daily No Start Date 04/23/2017 Inactive cyanocobalamin (vit B-12) 1,000 mcg/mL injection solution RxNorm: 378138 1 Milliliter(s) Inj No Start Date 04/23/2017 Inactive metoprolol succinate ER 50 mg tablet,extended release 24 hr RxNorm: 275241 1 Tablet(s) PO daily No Start Date 04/23/2017 Inactive lisinopril 5 mg tablet RxNorm: 195850 1 Tablet(s) PO QPM No Start Date 04/23/2017 Inactive Restasis MultiDose 0 .05 % eye drops RxNorm: 968940 Drop(s) ophthalmic (e ye) No Start Date 04/23/2017 Inactive venlafaxine ER 150 m g capsule,extended release 24 hr RxNorm: 889388 1 Capsule(s) PO daily No Start Date 04/23/2017 Inactive Toudaphneo SoloStar U-30 0 Insulin subcutaneous RxNorm: subcutaneous No Start Date 04/23/2017 Inactive Medication Administered No Medication Administered data Immunizations No Immunization data Assessments Condition Codes Effectiv e Dates Type 2 diabetes mellitus with hyperglycemia ICD-10: E11.65 ICD-9: 250.02 05/23/2018 Localized edema ICD-10: R60.0 ICD-9: 782.3 05/23/2018 Dysuria ICD-10: R30.0 ICD-9: 788.1 05/23/2018 [...] Visit Reason For Visit Effective Dates Notes edema 05/23/2018 abdominal pain 05/06/2018 dizziness 04/30/2018 sore throat 03/19/2018 low back and leg pain 02/01/2018 headache 12/13/2017 diabetes mellitus 09/18/2017 gait abnormality 08/23/2017 diabetes mellitus 06/20/2017 continuous blood glucose monitor diabetes mellitus 06/11/2017 diabetes mellitus 06/04/2017 diabetes mellitus 04/24/2017 Results Observation Observation Code Item Item Code Result Date Lipase Umo956 LIPASE 26 U/L 05/06/2018 Comp Metabolic Nml975 NA 140 mEq/L 05/06/2018 Comp Metabolic Cbe387 K 4.5 mEq/L 05/06/2018 Comp Metabolic Uqr788 CL 109 mEq/L 05/06/2018 Comp Metabolic Vbg305 CO2 24.0 mEq/L 05/06/2018 Comp Metabolic Axn170 AN ION GAP 12 05/06/2018 Comp Metabolic Xjf579 GL UCOSE 341 mg/dL 05/06/2018 Comp Metabolic Tuc159 Cr eat 1.6 mg/dL 05/06/2018 Comp Metabolic Gsb021 eG FR 34 ml/min/1.73m2 05/06 Comp Metabolic Vbi286 BUN 39 mg/dL 05/06/2018 Comp Metabolic Fwl305 B/ C Ratio 24.7 Ratio 05/06/2018 Comp Metabolic Yfn826 CA LCIUM 9.1 mg/dL 05/06/2018 Comp Metabolic Lnu346 AL K PHOS 61 U/L 05/06/2018 Comp Metabolic Pyk518 T(SGOT) 21 U/L 05/06/2018 Comp Metabolic Tiz991 AL T(SGPT) 28 U/L 05/06/2018 Comp Metabolic Wmv730 BI LI T 0.3 mg/dL 05/06/2018 Comp Metabolic Fyc105 AL BUMIN 3.8 g/dL 05/06/2018 Comp Metabolic Bsx666 TP RO 6.1 g/dL 05/06/2018 Comp Metabolic Bxa928 GL OB 2.4 g/dL 05/06/2018 Comp Metabolic Uud186 A/ G Ratio 1.6 Ratio 05/06/2018 Comp Metabolic Boa785 Os mo 302 mOsmo 05/06/2018 Amylase Ord34 AMYLASE 48 U/L 05/06/2018 Lipid Ord30 CHOL 171 mg/dL 12/13/2017 Lipid Ord30 HDL 64.0 mg/dl 12/13/2017 Lipid Ord30 TRIG 89 mg/dL 12/13/2017 Lipid Ord30 LDL 89 mg/dL 12/13/2017 Lipid Ord30 C/HDL 2.7 Ratio 12/13/2017 Comp Metabolic Ujl878 NA 140 mEq/L 12/13/2017 Comp Metabolic Vra919 K 4.4 mEq/L 12/13/2017 Comp Metabolic Lai331 CL 107 mEq/L 12/13/2017 Comp Metabolic Dja859 CO2 23.0 mEq/L 12/13/2017 Comp Metabolic Yks680 AN ION GAP 14 12/13/2017 Comp Metabolic Aon110 GL UCOSE 179 mg/dL 12/13/2017 Comp Metabolic Gkq739 Cr eat 1.7 mg/dL 12/13/2017 Comp Metabolic Xvh469 eG FR 31 ml/min/1.73m2 12/13 Comp Metabolic Iox993 BUN 40 mg/dL 12/13/2017 Comp Metabolic Hiw318 B/ C Ratio 23.3 Ratio 12/13/2017 Comp Metabolic Cia027 CA LCIUM 10.3 mg/dL 12/13/2017 Comp Metabolic Scy452 AL K PHOS 54 U/L 12/13/2017 Comp Metabolic Gxp465 T(SGOT) 41 U/L 12/13/2017 Comp Metabolic Som170 AL T(SGPT) 44 U/L 12/13/2017 Comp Metabolic Mjh016 BI LI T 0.4 mg/dL 12/13/2017 Comp Metabolic Znv232 AL BUMIN 4.9 g/dL 12/13/2017 Comp Metabolic Sfv899 TP RO 7.7 g/dL 12/13/2017 Comp Metabolic Jys600 GL OB 2.8 g/dL 12/13/2017 Comp Metabolic Egm654 A/ G Ratio 1.8 Ratio 12/13/2017 Comp Metabolic Pid986 Os mo 294 mOsmo 12/13/2017 Tsh Ord6 TSH (3rd IS) 2.56 uIU/mL 12/13/2017 %Hba1C Dsv058 % HbA1c 85064-5 9.6 % 12/13/2017 %Hba1C Erq909 Gluc Ave 229 mg/dL 12/13/2017 Cbc With [...] 32.0 pg 12/13/2017 Cbc With Differential Ord2 [place]% 8.0 % 12/13/2017 Cbc With Differential Ord2 [...] 1.44 K/ul 12/13/2017 Cbc With Differential Ord2 [place] ABS# 0.5 K/ul 12/13/2017 Cbc With Differential Ord2 Eos ABS# 0.1 K/ul 12/13/2017 Cbc With Differential Ord2 Baso ABS# 0.0 K/ul 12/13/2017 %Hba1C Hca626 % HbA1c 47522-6 13.1 % 04/24/2017 %Hba1C Uee092 Gluc Ave 329 mg/dL 04/24/2017 Cbc With [...] 32.0 pg 04/24/2017 Cbc With Differential Ord2 [place]% 11.0 % 04/24/2017 Cbc With Differential Ord2 [...] 2.39 K/ul 04/24/2017 Cbc With Differential Ord2 [place] ABS# 0.8 K/ul 04/24/2017 Cbc With Differential Ord2 Eos ABS# 0.1 K/ul 04/24/2017 Cbc With Differential Ord2 Baso ABS# 0.0 K/ul 04/24/2017 Comp Metabolic Izv762 NA 142 mEq/L 04/24/2017 Comp Metabolic Ejl626 K 3.8 mEq/L 04/24/2017 Comp Metabolic Hoa085 CL 105 mEq/L 04/24/2017 Comp Metabolic Joe198 CO2 27.0 mEq/L 04/24/2017 Comp Metabolic Yar405 AN ION GAP 14 04/24/2017 Comp Metabolic Bov605 GL UCOSE 203 mg/dL 04/24/2017 Comp Metabolic Gff056 Cr eat 1.9 mg/dL 04/24/2017 Comp Metabolic Glg067 eG FR 28 ml/min/1.73m2 04/24 Comp Metabolic Qwq414 BUN 26 mg/dL 04/24/2017 Comp Metabolic Mxs161 B/ C Ratio 13.6 Ratio 04/24/2017 Comp Metabolic Doo098 CA LCIUM 9.9 mg/dL 04/24/2017 Comp Metabolic Pjo491 AL K PHOS 79 U/L 04/24/2017 Comp Metabolic Awk460 T(SGOT) 25 U/L 04/24/2017 Comp Metabolic Iji504 AL T(SGPT) 36 U/L 04/24/2017 Comp Metabolic Weh708 BI LI T 0.3 mg/dL 04/24/2017 Comp Metabolic Whv146 AL BUMIN 4.5 g/dL 04/24/2017 Comp Metabolic Mnr896 TP RO 6.9 g/dL 04/24/2017 Comp Metabolic Syx514 GL OB 2.5 g/dL 04/24/2017 Comp Metabolic Mwh397 A/ G Ratio 1.8 Ratio 04/24/2017 Comp Metabolic Irx177 Os mo 294 mOsmo 04/24/2017 Review of Systems System Result Effective Dates Constitutional No recent illness 05/23/2018 Constitutional No [...] No alteration of consciousness 09/18/2017 Psychiatric anxiety 0808/2017 Psychiatric depression 0 09/18/2017 Constitutional recent illness [...] No alteration of consciousness 06/04/2017 Psychiatric anxiety 2 04/2017 Psychiatric depression 0 06/04/2017 Endocrine weakness 06/04 [...] Result Effective Dates Notes Full Exam - General 1994 Constitutional general [...] Date URINALYSIS NONAUTO W /O SCOPE CPT-4: 71891 05/06/2018 GLUC MONITOR CONT PH YS I&R CPT-4: 24321 09/18/2017 GLUCOSE MONITORING CONT CPT-4: 43721 06/20/2017 Vital Signs Date Vital 05/23/2018 Blood Pressure 1: 146/66 Code: 8480-6 BMI: 22.4 Code: 84929-0 Heart Rate 1: 85 bpm Height: 5'6" SpO2: 97% Weight: 139 lbs 05/06/2018 Blood Pressure 1: 128/86 Code: 8480-6 BMI: 20.8 Code: 42805-3 Heart Rate 1: 96 bpm Height: 5'6" SpO2: 96% Weight: 129 lbs 04/30/2018 Blood Pressure 1: 124/66 Code: 8480-6 Heart Rate 1: 87 bpm Height: 5'6" SpO2: 98% 03/19/2018 Blood Pressure 1: 142/84 Code: 8480-6 BMI: 20.5 Code: 48620-8 Heart Rate 1: 88 bpm Height: 5'6" SpO2: 98% Temperature: 36.6 (C ) / 97.9 (F) Weight: 129 lbs 02/01/2018 Blood Pressure 1: 110/52 Code: 8480-6 BMI: 19.9 Code: 66327-4 Height: 5'6" Weight: 125 lbs 12/13/2017 Blood Pressure 1: 140/80 Code: 8480-6 BMI: 19.9 Code: 77789-4 Heart Rate 1: 72 bpm Height: 5'6" SpO2: 95% Weight: 125 lbs 09/18/2017 Blood Pressure 1: 126/82 Code: 8480-6 BMI: 20.0 Code: 37529-4 Heart Rate 1: 103 bpm Height: 5'6" SpO2: 98% Weight: 126 lbs 08/23/2017 Blood Pressure 1: 118/62 Code: 8480-6 Heart Rate 1: 110 bpm Height: 5'6" SpO2: 95% Temperature: 37.1 (C ) / 98.7 (F) 06/20/2017 Heigh t: Weight: 06/11/2017 Blood Pressure 1: 142/76 Code: 8480-6 BMI: 21.3 Code: 69317-9 Heart Rate 1: 102 bpm Height: 5'6" SpO2: 97% Weight: 134 lbs 06/04/2017 Blood Pressure 1: 160/84 Code: 8480-6 BMI: 20.8 Code: 19888-4 Heart Rate 1: 87 bpm Height: 5'6" SpO2: 97% Weight: 131 lbs 04/24/2017 Blood Pressure 1: 132/80 Code: 8480-6 BMI: 20.8 Code: 42352-8 Heart Rate 1: 84 bpm Height: 5'6" SpO2: 99% Weight: 131 lbs Functional Status No Functional Status data History of Present Illness Symptom Name Status Resu lt Effective Date Notes Quality imbalance 05/23/2018 None Quality lightheadedness 05/23/2018 [...] Resolution o ngoing 04/30/2018 None Pertinent Findings teri perezness 04/30/2018 None Pertinent Findings Den ies seizure [...] ies blurred vision 02/01/2018 None Pertinent Findings teri perezriley 02/01/2018 None Quality insulin depend ent 02/01/2018 [...] Encounters Encounter Performer Loca tion Codes Date 93031 EST. PATIENT, LEVEL III Diagnosis: Dysuria[ICD10: R30.0] Diagnosis: Type 2 diabetes mellitus with hyperglycemia[ICD10: E11.65] Diagnosis: Localized edema[ICD10: R60.0] [facility] CPT-4: 96150 05/23/2018 ([id number]) 60878 EST. P ATIENT, LEVEL IV Diagnosis: Low back pain[ICD10: M54.5] Diagnosis: Left upper quadrant pain[ICD10: R10.12] Diagnosis: Pain in left hip[ICD10: M25.552] Diagnosis: Pain in left shoulder[ICD10: M25.512] Diagnosis: Repeated falls[ICD10: R29.6] Diagnosis: Unsteadiness on feet[ICD10: R26.81] Diagnosis: Chronic kidney disease, stage 3 (moderate)[ICD10: N18.3] [facility] CPT-4: 06928 05/06/2018 73678 EST. PATIENT, LEVEL III Diagnosis: Low back pain[ICD10: M54.5] Diagnosis: Pain in left hip[ICD10: M25.552] Diagnosis: Repeated falls[ICD10: R29.6] Diagnosis: Unsteadiness on feet[ICD10: R26.81] Diagnosis: Headache[ICD10: R51] Diagnosis: Type 2 diabetes mellitus with hyperglycemia[ICD10: E11.65] Shae Man MD, [facility] CPT-4: 70457 04/30/2018 ([id number]) 39868 EST. P ATIENT, LEVEL III Diagnosis: Acute recurrent maxillary sinusitis[ICD10: J01.01] Diagnosis: Rash and other nonspecific skin eruption[ICD10: R21] Ana Man MD, [facility] CPT-4: 79518 03/19/2018 ([id number]) 19872 EST. P ATIENT, LEVEL IV Diagnosis: Acute recurrent maxillary sinusitis[ICD10: J01.01] Diagnosis: Low back pain[ICD10: M54.5] Diagnosis: Unsteadiness on feet[ICD10: R26.81] Diagnosis: Essential (primary) hypertension[ICD10: I10] Ana Man MD, [facility] CPT-4: 61085 02/01/2018 ([id number]) 53546 EST. P ATIENT, LEVEL IV Diagnosis: Type 2 diabetes mellitus with hyperglycemia[ICD10: E11.65] Diagnosis: Essential (primary) hypertension[ICD10: I10] Diagnosis: Other fatigue[ICD10: R53.83] Maude Man MD, [facility] CPT-4: 36202 12/13/2017 ([id number]) 88932 EST. P ATIENT, LEVEL IV Diagnosis: Type 2 diabetes mellitus with hyperglycemia[ICD10: E11.65] Diagnosis: Essential (primary) hypertension[ICD10: I10] Diagnosis: Major depressive disorder, recurrent, in partial remission[ICD10: F33.41] Maude Man MD, [facility] CPT-4: 83385 09/18/2017 ([id number]) 33816 EST. P ATIENT, LEVEL IV Diagnosis: Pouchitis[ICD10: K91.850] Diagnosis: Other fatigue[ICD10: R53.83] Diagnosis: Type 2 diabetes mellitus with hyperglycemia[ICD10: E11.65] Diagnosis: Essential (primary) hypertension[ICD10: I10] Diagnosis: Orthostatic hypotension[ICD10: I95.1] [facility] CPT-4: 59786 08/23/2017 ([id number]) Melindasandy s no charge Diagnosis: Type 2 diabetes mellitus with hyperglycemia[ICD10: E11.65] Shae Man MD, [facility] CPT-4: 01605 06/25/2017 ([id number]) 12269 EST. P ATIENT, LEVEL IV Diagnosis: Type 2 diabetes mellitus with hyperglycemia[ICD10: E11.65] Maude Man MD, [facility] CPT-4: 90700 06/11/2017 ([id number]) 94674 EST. P ATIENT, LEVEL IV Diagnosis: Type 2 diabetes mellitus with hyperglycemia[ICD10: E11.65] Diagnosis: Essential (primary) hypertension[ICD10: I10] Diagnosis: Acute recurrent maxillary sinusitis[ICD10: J01.01] Ana Man MD, [facility] CPT-4: 28904 06/04/2017 OFFICE VISIT, NEW - LEVEL 4 Diagnosis: Left lower quadrant pain[ICD10: R10.32] Diagnosis: Other ulcerative colitis with unspecified complications[ICD10: K51.819] Diagnosis: Essential (primary) hypertension[ICD10: I10] Diagnosis: Type 2 diabetes mellitus without complications[ICD10: E11.9] Diagnosis: Major depressive disorder, recurrent, in partial remission[ICD10: F33.41] Diagnosis: Melena[ICD10: K92.1] Ana Man MD, [facility] CPT-4: 96887 04/24/2017 Plan of Care Planned Activity Notes C odes Status Date Care Plan: Referral Order SNOMED-CT : [id number] Pending 05/24/2018 Visit Plan: Diabetes Mellitus - [...] WPtel: [facility] (30 min) Complex 05/23/2018 Patient Education: Patient Medication Summary Completed 05/23/2018 Patient Education: Diabetes Completed 05/23/2018 Care Plan: Urine Culture Pending 05/23/2018 Appointment: Ana Burrell WPtel: [phone] (30 min) Complex 05/20/2018 Care Plan: CT HEAD/BRAIN W/O DYE LOINC : 13930-7 Pending 05/08/2018 Visit Plan: Abdominal pain -UA [...] Burrell WPtel: [phone] (15 min) Moderate 05/06/2018 Patient Education: Patient [...] glucose control. 04/30/2018 Appointment: Shae Guerrero WPtel: [phone] [facility] (30 min) Complex 04/30/2018 Patient Education: [...] any worse 03/19/2018 Appointment: Ana Burrell WPtel: [phone] [place] (30 min) Complex 03/19/2018 Patient Education: Patient [...] appt 02/01/2018 Appointment: Ana Burrell WPtel: [phone] [phone] [place] (30 min) Complex 02/01/2018 Patient Education: Patient Medication Summary Completed 02/01/2018 Patient Education: Back Pain Completed 02/01/2018 Patient Education: Hypertension Completed 02/01/2018 Appointment: Maude Man WPtel: [phone] [facility] [place] (15 min) Moderate 01/24/2018 Referral: Megha Garcia Referral Completed 01/15/2018 Visit Plan: Diabetes Mellitus - [facility] ontrolled - per recent FSBS reports. I [...] made. 12/13/2017 [phone] ([facility]) Moderate 12/13/2017 Patient Education: Patient Medication Summary Completed 12/13/2017 Patient Education: Diabetes Completed 12/13/2017 Patient Education: Hypertension Completed 12/13/2017 Care Plan: Referral Order SNOMED-CT : [id number] Pending 12/13/2017 App[facility]ment: [phone] (15 min) Moderate 11/26/2017 Visit Plan: Diabetes Mellitus - [facility] ontrolled - per recent FSBS reports. I [...] has not followed through 09/18/2017 Appointment: [phone] [facility] [employer] (15 min) Moderate 09/18/2017 Patient Education: Patient Medication Summary Completed 09/18/2017 Referral: External, Ordering Provider Patient informed. Referral info faxed. Completed 09/17/2017 Appointment: [phone] [facility] [place] (15 min) Moderate 09/06/2017 Visit Plan: [...] WPtel: [facility] (15 min) Moderate 08/23/2017 Patient Education: Patient Medication Summary Completed 08/23/2017 Care Plan: Comp Metabolic Cancelled 08/23/2017 Care Plan: Cbc With Differential Cancelled 08/23/2017 Care Plan: %Hba1C NATTY C : 10440-7 Cancelled 08/23/2017 Care Plan: Magnesium Cancelled 08/23/2017 Care Plan: Referral Order SNOMED-CT : [id number] Pending 08/23/2017 Appointment: Maude Man WPtel: [facility] (15 min) Moderate 08/13/2017 Visit Plan: CGM removed - pt tolera jomar procedure well - no changes at this time. 06/25/2017 Patient Education: Patient Medication Summary Completed 06/25/2017 Appointment: Maude Man WPtel: [facility] (15 min) Moderate 06/21/2017 Visit Plan: Continuous [...] glucose control. 06/20/2017 [facility]ment[phone] ([facility] 06/20/2017 Patient Education: Patient Medication Summary Completed 06/20/2017 Visit Plan: Diabetes Mellitus - [facility] ontrolled - per recent FSBS reports. I [...] Education: Patient Medication Summary Completed 06/04/2017 Appointment: Indra Ana WPtel: [phone] (30 min) Complex 05/31/2017 Appointment: Indra Ana WPtel: [phone] [place] (30 min) Complex 05/29/2017 Appointment: Ana Burrell WPtel: [phone] (30 min) Complex 05/24/2017 Visit Plan: [...] current medications. 04/24/2017 Appointment: Ana Burrell WPtel: [address] [place], [place] [id number] [place] [address] New Patient 04/24/2017 Patient Education: Patient Medication Summary Completed 04/24/2017 Appointment: Shae Guerrero WPtel: [address] [place], [place] [id number] New Patient 04/20/2017 Referral: External, Ordering [...] change in current medications. Physical therapy asad guero Ceballos Manisha xray lumbar spine keflex for sinus infection [...] and we will refer to Dr. Gracia. start apidra 5 units with breakfast call in 1 week with blood sugars continue tomary coates for sinus infection . Diabetes Mellitus - [...]
--- OUTSIDE RECORDS SUMMARY | 2019-01-29 06:10 | XMS REPORT | CCD ---
Author Author Baylee Burrell Organization Maude Man MD, [facility] Address [address] [place] [address] Phone Care Team Providers Care Housing Inspectors Name Role Phone PP Unavailable CCM Unavailable Summary Purpose Interface Exchange Insurance Providers Payer name Policy type / Coverage type Covered green party ID Effective Begin Date Effective End Date WPS Medicare Part B Blue Cross/Blue Shield [id number] Unknown Blue Cross Blue Shield [facility] [place] e Cross/Blue Shield [id number] Un known Blue Cross/Blue Shield [id number] Unknown Family history Sister Diagnosis Age At [...] 1 04/24/2017 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/[address]: 084921202 Never smoker 04/24/[address]: 450360355 Never drinks alcohol 04/24/2017 Allergies, Adverse Reactions, Alerts Substance Reaction Codes Entered Date Inactivated Date Status Levaquin RxNorm: 09625 04/24/2017 No Inactive Date Active Past Medical [...] Fill Instructions tramadol 50 mg tablet RxNorm: 463268 1 Tablet(s) PO Q6 PRN 05/29/2018 No Stop Date Active Basaglar KwikPen U-1 00 Insulin 100 unit/mL (3 mL) subcutaneous RxNorm: 7183384 50 Unit(s) SQ daily 05/29/2018 12/24/2018 Active qty sufficient for 1 month Keflex 500 mg capsule RxNorm: 230088 1 Capsule(s) PO TID 05/23/2018 05/29/2018 Inactive potassium chloride E R 20 mEq tablet,extended release RxNorm: 167146 1 Tablet(s) PO daily 05/23/2018 05/25/2018 Inactive Lasix 40 mg tablet RxNorm: 685537 1 Tablet(s) PO daily 05/23/2018 05/25/2018 Inactive Zofran 4 mg tablet RxNorm: 632177 1 Tablet(s) PO Q6 PRN 05/06/2018 No Stop Date Active tramadol 50 mg tablet RxNorm: 686654 1 Tablet(s) PO Q6 PRN 05/06/2018 05/28/2018 Inactive Basaglar KwikPen U-1 00 Insulin 100 unit/mL (3 mL) subcutaneous RxNorm: 7252409 46 Unit(s) SQ daily 05/03/2018 05/28/2018 Inactive qty sufficient for 1 month doxycycline hyclate 100 mg tablet RxNorm: 6512764 1 Tablet(s) PO BID 03/19/2018 03/25/2018 Inactive mupirocin 2 % topica l ointment RxNorm: 502948 1 Application TOP BID 03/19/2018 03/28/2018 Inactive Basaglar KwikPen U-1 00 Insulin 100 unit/mL (3 mL) subcutaneous RxNorm: 0162343 45 Unit(s) SQ daily 03/06/2018 05/02/2018 Inactive Basaglar KwikPen U-1 00 Insulin 100 unit/mL (3 mL) subcutaneous RxNorm: 0755062 45 Unit(s) SQ daily 03/06/2018 03/05/2018 Inactive Toujeo SoloStar U-30 0 Insulin 300 unit/mL (1.5 mL) subcutaneous pen RxNorm: 4966314 Unit(s) INJECT 45 UNITS UNDER THE SKIN DAILY 02/22/2018 03/05/2018 Inactive 30 d ay supply Toujeo SoloStar U-30 0 Insulin 300 unit/mL (1.5 mL) subcutaneous pen RxNorm: 1628650 INJECT 40 UNITS UNDER THE SKIN DAILY 02/21/2018 02/21/2018 Inactive Keflex 500 mg capsule RxNorm: 094869 1 Capsule(s) PO TID 02/01/2018 02/07/2018 Inactive Toujeo SoloStar U-30 0 Insulin 300 unit/mL (1.5 mL) subcutaneous pen RxNorm: 3845363 45 Unit(s) SQ daily 12/26/2017 No Stop Date Active atorvastatin 40 mg t ablet RxNorm: 686986 Tablet(s) TAKE ONE-REA LF TABLET BY MOUTH EVERY EVENING 12/26/2017 No Stop Date Active Restasis 0.05 % eye drops in a dropperette RxNorm: 510724 INSTILL ONE DROP IN E ACH EYE EVERY 12 HOURS 12/24/2017 04/22/2018 Inactive atorvastatin 40 mg t ablet RxNorm: 909596 TAKE ONE TABLET BY MO UTH EVERY EVENING 12/17/2017 12/25/2017 In active venlafaxine ER 150 m g tablet,extended release 24 hr RxNorm: 054871 TAKE ONE CAPSULE BY MOUTH DAILY 10/11/2017 07/07/2018 Active metoprolol succinate ER 50 mg tablet,extended release 24 hr RxNorm: 053842 TAKE ONE TABLET BY MOUTH DAILY 10/11/2017 07/07/2018 Active atorvastatin 40 mg t ablet RxNorm: 436077 TAKE ONE TABLET BY MO UTH EVERY EVENING 10/11/2017 12/16/2017 In active metoprolol succinate ER 25 mg tablet,extended release 24 hr RxNorm: 260322 1/2 Tablet(s) PO daily 09/18/2017 03/16/2018 Inactive metronidazole 500 mg tablet RxNorm: 667706 1 Tablet(s) PO TID 08/23/2017 09/01/2017 Inactive Diflucan 150 mg tablet RxNorm: 129113 1 Tablet(s) PO daily 08/23/2017 09/01/2017 Inactive atorvastatin 40 mg t ablet RxNorm: 102380 1 Tablet(s) PO QPM 08/02/2017 10/10/2017 Inactive Toujeo SoloStar U-30 0 Insulin 300 unit/mL (1.5 mL) subcutaneous pen RxNorm: 4032106 40 Unit(s) SQ daily 07/30/2017 12/25/2017 Inactive Novofine 32 32 gauge x 1/4" needle RxNorm: USE TO TEST BLOOD SUGAR ONC E DAILY 07/26/2017 04/16/2019 Ac tive Toujeo SoloStar U-30 0 Insulin 300 unit/mL (1.5 mL) subcutaneous pen RxNorm: 4143490 INJECT 24 UNITS UNDER THE SKIN EVERY EVENING 07/26/2017 07/29/2017 Inactive Apidra U-100 Insulin 100 unit/mL subcutaneous solution RxNorm: 669806 5 Unit(s) SQ AC 06/06/2017 06/06/2017 Inactive start with 5 units with breakfast -call with blood sugars in 1 week Keflex 500 mg capsule RxNorm: 970091 1 Capsule(s) PO TID 06/04/2017 06/10/2017 Inactive Apidra U-100 Insulin 100 unit/mL subcutaneous solution RxNorm: 568162 5 Unit(s) SQ AC 06/04/2017 06/05/2017 Inactive start with 5 units with breakfast -call with blood sugars in 1 week Restasis 0.05 % eye drops in a dropperette RxNorm: 066153 1 gtts ophthalmic (ey e) Q12H 06/04/2017 07/03/2017 Inactive Toujeo SoloStar U-30 0 Insulin 300 unit/mL (1.5 mL) subcutaneous pen RxNorm: 1689520 28 Unit(s) SQ QPM x1 week, then 32 units daily. 04/26/2017 08/28/2017 Inactive Restasis MultiDose 0 .05 % eye drops RxNorm: 542512 1 Drop(s) ophthalmic (eye) daily - BID 04/24/2017 No Stop Date Active cyanocobalamin (vit B-12) 1,000 mcg/mL injection solution RxNorm: 172420 1 Milliliter(s) Inj QW -BIW 04/24/2017 07/22/2017 Inactive disp with syringes please Toujeo SoloStar U-30 0 Insulin 300 unit/mL (1.5 mL) subcutaneous pen RxNorm: 9263195 24 Unit(s) SQ QPM 04/24/2017 04/23/2017 Inactive Novofine 32 32 gauge x 1/4" needle RxNorm: 1 test Miscellaneous daily 04/24/2017 07/22/2017 In active E11.65 use with westley venlafaxine ER 150 m g tablet,extended release 24 hr RxNorm: 112435 1 Tablet(s) PO daily 04/24/2017 10/10/2017 Inactive cyanocobalamin (vit B-12) 1,000 mcg/mL injection solution RxNorm: 628671 1 Milliliter(s) Inj QW -BIW 04/24/2017 04/23/2017 Inactive metoprolol succinate ER 50 mg tablet,extended release 24 hr RxNorm: 513566 1 Tablet(s) PO daily 04/24/2017 09/17/2017 Inactive Toujeo SoloStar U-30 0 Insulin 300 unit/mL (1.5 mL) subcutaneous pen RxNorm: 1360080 24 Unit(s) SQ QPM 04/24/2017 04/25/2017 Inactive Centrum Silver tablet RxNorm: 1 Tablet(s) PO daily No Start Date Active Novolog U-100 Insuli n aspart 100 unit/mL subcutaneous solution RxNorm: 248276 5 Unit(s) SQ AC No Start Date Active magnesium 250 mg tablet RxNorm: 1 Tablet(s) PO as needed No Start Date Active Probiotic Blend oral RxNorm: 046400 oral No Start Date Active Calcium 600 + D(3) 6 00 mg (1,500 mg)-400 unit tablet RxNorm: 225527 1 Tablet(s) PO as needed No Start Date Active atorvastatin 40 mg t ablet RxNorm: 197186 1 Tablet(s) PO QPM No Start Date 08/01/2017 Inactive Novofine 32 32 gauge x 1/4" needle RxNorm: 1 Miscellaneous daily No Start Date 04/23/2017 Inactive cyanocobalamin (vit B-12) 1,000 mcg/mL injection solution RxNorm: 768205 1 Milliliter(s) Inj No Start Date 04/23/2017 Inactive metoprolol succinate ER 50 mg tablet,extended release 24 hr RxNorm: 911412 1 Tablet(s) PO daily No Start Date 04/23/2017 Inactive lisinopril 5 mg tablet RxNorm: 188605 1 Tablet(s) PO QPM No Start Date 04/23/2017 Inactive Restasis MultiDose 0 .05 % eye drops RxNorm: 113809 Drop(s) ophthalmic (e ye) No Start Date 04/23/2017 Inactive venlafaxine ER 150 m g capsule,extended release 24 hr RxNorm: 841647 1 Capsule(s) PO daily No Start Date [...] Code Item Item Code Result Date Lipase Fcu243 LIPASE 26 U/L 05/06/2018 Comp Metabolic Zzy588 NA 140 mEq/L 05/06/2018 Comp Metabolic Dwn804 K 4.5 mEq/L 05/06/2018 Comp Metabolic Gkw653 CL 109 mEq/L 05/06/2018 Comp Metabolic Hll202 CO2 24.0 mEq/L 05/06/2018 Comp Metabolic Hiq882 AN ION GAP 12 05/06/2018 Comp Metabolic Cea292 GL UCOSE 341 mg/dL 05/06/2018 Comp Metabolic Jmq026 Cr eat 1.6 mg/dL 05/06/2018 Comp Metabolic Qpg560 eG FR 34 ml/min/1.73m2 05/06 Comp Metabolic Xug047 BUN 39 mg/dL 05/06/2018 Comp Metabolic Lri658 B/ C Ratio 24.7 Ratio 05/06/2018 Comp Metabolic Wqm581 CA LCIUM 9.1 mg/dL 05/06/2018 Comp Metabolic Hjt939 AL K PHOS 61 U/L 05/06/2018 Comp Metabolic Ldh723 T(SGOT) 21 U/L 05/06/2018 Comp Metabolic Kzc855 AL T(SGPT) 28 U/L 05/06/2018 Comp Metabolic Rbm108 BI LI T 0.3 mg/dL 05/06/2018 Comp Metabolic Uxt429 AL BUMIN 3.8 g/dL 05/06/2018 Comp Metabolic Lqd957 TP RO 6.1 g/dL 05/06/2018 Comp Metabolic Ivs733 GL OB 2.4 g/dL 05/06/2018 Comp Metabolic Ffl512 A/ G Ratio 1.6 Ratio 05/06/2018 Comp Metabolic Ava531 Os mo 302 mOsmo 05/06/2018 Amylase Ord34 AMYLASE 48 U/L 05/06/2018 Lipid Ord30 CHOL 171 mg/dL 12/13/2017 Lipid Ord30 HDL 64.0 mg/dl 12/13/2017 Lipid Ord30 TRIG 89 mg/dL 12/13/2017 Lipid Ord30 LDL 89 mg/dL 12/13/2017 Lipid Ord30 C/HDL 2.7 Ratio 12/13/2017 Comp Metabolic Nyz032 NA 140 mEq/L 12/13/2017 Comp Metabolic Ckd513 K 4.4 mEq/L 12/13/2017 Comp Metabolic Gcz418 CL 107 mEq/L 12/13/2017 Comp Metabolic Hio131 CO2 23.0 mEq/L 12/13/2017 Comp Metabolic Spv347 AN ION GAP 14 12/13/2017 Comp Metabolic Ubj813 GL UCOSE 179 mg/dL 12/13/2017 Comp Metabolic Gnu625 Cr eat 1.7 mg/dL 12/13/2017 Comp Metabolic Hlz827 eG FR 31 ml/min/1.73m2 12/13 Comp Metabolic Ati915 BUN 40 mg/dL 12/13/2017 Comp Metabolic Bzb320 B/ C Ratio 23.3 Ratio 12/13/2017 Comp Metabolic Xfb081 CA LCIUM 10.3 mg/dL 12/13/2017 Comp Metabolic Fhv773 AL K PHOS 54 U/L 12/13/2017 Comp Metabolic Enf847 T(SGOT) 41 U/L 12/13/2017 Comp Metabolic Csy389 AL T(SGPT) 44 U/L 12/13/2017 Comp Metabolic Ztw076 BI LI T 0.4 mg/dL 12/13/2017 Comp Metabolic Htd898 AL BUMIN 4.9 g/dL 12/13/2017 Comp Metabolic Kay952 TP RO 7.7 g/dL 12/13/2017 Comp Metabolic Ook728 GL OB 2.8 g/dL 12/13/2017 Comp Metabolic Mvm880 A/ G Ratio 1.8 Ratio 12/13/2017 Comp Metabolic Xwr559 Os mo 294 mOsmo 12/13/2017 Tsh Ord6 TSH (3rd IS) 2.56 uIU/mL 12/13/2017 %Hba1C Vea459 % HbA1c 30156-0 9.6 % 12/13/2017 %Hba1C Uvw509 Gluc Ave 229 mg/dL 12/13/2017 Cbc With [...] 32.0 pg 12/13/2017 Cbc With Differential Ord2 [place]% 8.0 % 12/13/2017 Cbc With Differential Ord2 [...] 1.44 K/ul 12/13/2017 Cbc With Differential Ord2 [place] ABS# 0.5 K/ul 12/13/2017 Cbc With Differential Ord2 Eos ABS# 0.1 K/ul 12/13/2017 Cbc With Differential Ord2 Baso ABS# 0.0 K/ul 12/13/2017 %Hba1C Gur441 % HbA1c 98107-5 13.1 % 04/24/2017 %Hba1C Dyr017 Gluc Ave 329 mg/dL 04/24/2017 Cbc With [...] 32.0 pg 04/24/2017 Cbc With Differential Ord2 [place]% 11.0 % 04/24/2017 Cbc With Differential Ord2 [...] 2.39 K/ul 04/24/2017 Cbc With Differential Ord2 [place] ABS# 0.8 K/ul 04/24/2017 Cbc With Differential Ord2 Eos ABS# 0.1 K/ul 04/24/2017 Cbc With Differential Ord2 Baso ABS# 0.0 K/ul 04/24/2017 Comp Metabolic Mqk791 NA 142 mEq/L 04/24/2017 Comp Metabolic Iin946 K 3.8 mEq/L 04/24/2017 Comp Metabolic Kyg606 CL 105 mEq/L 04/24/2017 Comp Metabolic Knr153 CO2 27.0 mEq/L 04/24/2017 Comp Metabolic Mlc488 AN ION GAP 14 04/24/2017 Comp Metabolic Bbq257 GL UCOSE 203 mg/dL 04/24/2017 Comp Metabolic Ypd308 Cr eat 1.9 mg/dL 04/24/2017 Comp Metabolic Wen384 eG FR 28 ml/min/1.73m2 04/24 Comp Metabolic Xhi369 BUN 26 mg/dL 04/24/2017 Comp Metabolic Npe437 B/ C Ratio 13.6 Ratio 04/24/2017 Comp Metabolic Lhn125 CA LCIUM 9.9 mg/dL 04/24/2017 Comp Metabolic Clp570 AL K PHOS 79 U/L 04/24/2017 Comp Metabolic Hyt272 T(SGOT) 25 U/L 04/24/2017 Comp Metabolic Ukv241 AL T(SGPT) 36 U/L 04/24/2017 Comp Metabolic Ixv690 BI LI T 0.3 mg/dL 04/24/2017 Comp Metabolic Kda791 AL BUMIN 4.5 g/dL 04/24/2017 Comp Metabolic Mcg030 TP RO 6.9 g/dL 04/24/2017 Comp Metabolic Kxr915 GL OB 2.5 g/dL 04/24/2017 Comp Metabolic Xbt909 A/ G Ratio 1.8 Ratio 04/24/2017 Comp Metabolic Uot839 Os mo 294 mOsmo 04/24/2017 Review of [...] No alteration of consciousness 09/18/2017 Psychiatric anxiety 08/0 08/2017 Psychiatric depression 0 09/18/2017 Constitutional recent [...] No alteration of consciousness 06/04/2017 Psychiatric anxiety /04/2017 Psychiatric depression 0 06/04/2017 Endocrine weakness 06/04 [...] clear 12/13/2017 None Full Exam - General 1995 Ears/Nose/Throat otoscopic exam Overall: tympanic membranes clear [...] Date URINALYSIS NONAUTO W /O SCOPE CPT-4: 47054 05/06/2018 GLUC MONITOR CONT PH YS I&R CPT-4: 86918 09/18/2017 GLUCOSE MONITORING CONT CPT-4: 22568 06/20/2017 Vital Signs Date Vital 05/23/2018 Blood Pressure 1: 146/66 Code: 8480-6 BMI: 22.4 Code: 60753-7 Heart Rate 1: 85 bpm Height: 5'6" SpO2: 97% Weight: 139 lbs 05/06/2018 Blood Pressure 1: 128/86 Code: 8480-6 BMI: 20.8 Code: 14112-7 Heart Rate 1: 96 bpm Height: 5'6" SpO2: 96% Weight: 129 lbs 04/30/2018 Blood Pressure 1: 124/66 Code: 8480-6 Heart Rate 1: 87 bpm Height: 5'6" SpO2: 98% 03/19/2018 Blood Pressure 1: 142/84 Code: 8480-6 BMI: 20.5 Code: 55393-7 Heart Rate 1: 88 bpm Height: 5'6" SpO2: 98% Temperature: 36.6 (C ) / 97.9 (F) Weight: 129 lbs 02/01/2018 Blood Pressure 1: 110/52 Code: 8480-6 BMI: 19.9 Code: 91998-7 Height: 5'6" Weight: 125 lbs 12/13/2017 Blood Pressure 1: 140/80 Code: 8480-6 BMI: 19.9 Code: 40841-8 Heart Rate 1: 72 bpm Height: 5'6" SpO2: 95% Weight: 125 lbs 09/18/2017 Blood Pressure 1: 126/82 Code: 8480-6 BMI: 20.0 Code: 10268-9 Heart Rate 1: 103 bpm Height: 5'6" SpO2: 98% Weight: 126 lbs 08/23/2017 Blood Pressure 1: 118/62 Code: 8480-6 Heart Rate 1: 110 bpm Height: 5'6" SpO2: 95% Temperature: 37.1 (C ) / 98.7 (F) 06/20/2017 Heigh t: Weight: 06/11/2017 Blood Pressure 1: 142/76 Code: 8480-6 BMI: 21.3 Code: 86186-7 Heart Rate 1: 102 bpm Height: 5'6" SpO2: 97% Weight: 134 lbs 06/04/2017 Blood Pressure 1: 160/84 Code: 8480-6 BMI: 20.8 Code: 80492-8 Heart Rate 1: 87 bpm Height: 5'6" SpO2: 97% Weight: 131 lbs 04/24/2017 Blood Pressure 1: 132/80 Code: 8480-6 BMI: 20.8 Code: 39894-2 Heart Rate 1: 84 bpm Height: 5'6" [...] Encounters Encounter Performer Loca tion Codes Date 16120 EST. PATIENT, LEVEL III Diagnosis: Dysuria[ICD10: R30.0] Diagnosis: Type 2 diabetes mellitus with hyperglycemia[ICD10: E11.65] Diagnosis: Localized edema[ICD10: R60.0] [facility] CPT-4: 06654 05/23/2018 ([id number]) 88041 EST. P ATIENT, LEVEL IV Diagnosis: Low back pain[ICD10: M54.5] Diagnosis: Left upper quadrant pain[ICD10: R10.12] Diagnosis: Pain in left hip[ICD10: M25.552] Diagnosis: Pain in left shoulder[ICD10: M25.512] Diagnosis: Repeated falls[ICD10: R29.6] Diagnosis: Unsteadiness on feet[ICD10: R26.81] Diagnosis: Chronic kidney disease, stage 3 (moderate)[ICD10: N18.3] [facility] CPT-4: 91963 05/06/2018 40129 EST. PATIENT, LEVEL III Diagnosis: Low back pain[ICD10: M54.5] Diagnosis: Pain in left hip[ICD10: M25.552] Diagnosis: Repeated falls[ICD10: R29.6] Diagnosis: Unsteadiness on feet[ICD10: R26.81] Diagnosis: Headache[ICD10: R51] Diagnosis: Type 2 diabetes mellitus with hyperglycemia[ICD10: E11.65] Shae Man MD, [facility] CPT-4: 16418 04/30/2018 ([id number]) 05224 EST. P ATIENT, LEVEL III Diagnosis: Acute recurrent maxillary sinusitis[ICD10: J01.01] Diagnosis: Rash and other nonspecific skin eruption[ICD10: R21] Ana Man MD, [facility] CPT-4: 65341 03/19/2018 ([id number]) 95011 EST. P ATIENT, LEVEL IV Diagnosis: Acute recurrent maxillary sinusitis[ICD10: J01.01] Diagnosis: Low back pain[ICD10: M54.5] Diagnosis: Unsteadiness on feet[ICD10: R26.81] Diagnosis: Essential (primary) hypertension[ICD10: I10] Ana Man MD, [facility] CPT-4: 27186 02/01/2018 ([id number]) 19621 EST. P ATIENT, LEVEL IV Diagnosis: Type 2 diabetes mellitus with hyperglycemia[ICD10: E11.65] Diagnosis: Essential (primary) hypertension[ICD10: I10] Diagnosis: Other fatigue[ICD10: R53.83] Maude Man MD, [facility] CPT-4: 67226 12/13/2017 ([id number]) 32581 EST. P ATIENT, LEVEL IV Diagnosis: Type 2 diabetes mellitus with hyperglycemia[ICD10: E11.65] Diagnosis: Essential (primary) hypertension[ICD10: I10] Diagnosis: Major depressive disorder, recurrent, in partial remission[ICD10: F33.41] Maude Man MD, [facility] CPT-4: 30737 09/18/2017 ([id number]) 16578 EST. P ATIENT, LEVEL IV Diagnosis: Pouchitis[ICD10: K91.850] Diagnosis: Other fatigue[ICD10: R53.83] Diagnosis: Type 2 diabetes mellitus with hyperglycemia[ICD10: E11.65] Diagnosis: Essential (primary) hypertension[ICD10: I10] Diagnosis: Orthostatic hypotension[ICD10: I95.1] Maude Man MD, [facility] CPT-4: 78571 08/23/2017 ([id number]) Miscellaneou s no charge Diagnosis: Type 2 diabetes mellitus with hyperglycemia[ICD10: E11.65] Shae Man MD, [facility] CPT-4: 23139 06/25/2017 ([id number]) 74622 EST. P ATIENT, LEVEL IV Diagnosis: Type 2 diabetes mellitus with hyperglycemia[ICD10: E11.65] Maude Man MD, [facility] CPT-4: 84292 06/11/2017 ([id number]) 83719 EST. P ATIENT, LEVEL IV Diagnosis: Type 2 diabetes mellitus with hyperglycemia[ICD10: E11.65] Diagnosis: Essential (primary) hypertension[ICD10: I10] Diagnosis: Acute recurrent maxillary sinusitis[ICD10: J01.01] Ana Man MD, [facility] CPT-4: 96373 06/04/2017 OFFICE VISIT, NEW - LEVEL 4 Diagnosis: Left lower quadrant pain[ICD10: R10.32] Diagnosis: Other ulcerative colitis with unspecified complications[ICD10: K51.819] Diagnosis: Essential (primary) hypertension[ICD10: I10] Diagnosis: Type 2 diabetes mellitus without complications[ICD10: E11.9] Diagnosis: Major depressive disorder, recurrent, in partial remission[ICD10: F33.41] Diagnosis: Melena[ICD10: K92.1] Ana Man MD, [facility] CPT-4: 40667 04/24/2017 Plan of Care Planned Activity Notes C odes Status Date Care Plan: Referral Order SNOMED-CT : 779437910 Pending 05/24/2018 Visit Plan: Diabetes Mellitus - [...] not improve. 05/23/2018 Appointment: Shae Guerrero WPtel: [facility] (30 min) Complex 05/23/2018 Patient Education: Patient Medication Summary Completed 05/23/2018 Patient Education: Diabetes Completed 05/23/2018 Care Plan: Urine Culture Pending 05/23/2018 Appointment: Ana Burrell WPtel: [phone] [place] (30 min) Complex 05/20/2018 Care Plan: CT HEAD/BRAIN W/O DYE LOINC : 42386-7 Pending 05/08/2018 Visit Plan: Abdominal pain -UA [...] adequate hydration 05/06/2018 Appointment: Ana Burrell WPtel: [phone] [place] (15 min) Moderate 05/06/2018 Patient Education: [...] control. 04/30/2018 Appointment: Shae Guerrero WPtel: [phone] [facility] (30 min) Complex 04/30/2018 Patient Education: [...] worse 03/19/2018 Appointment: Ana Burrell WPtel: [phone] [phone] (30 min) Complex 03/19/2018 Patient Education: [...] appt 02/01/2018 Appointment: Ana Burrell WPtel: [phone] [phone] (30 min) Complex 02/01/2018 Patient Education: Patient Medication Summary Completed 02/01/2018 Patient Education: Back Pain Completed 02/01/2018 Patient Education: Hypertension Completed 02/01/2018 Appointment: Maude Man WPtel: [phone] [facility] [place] (15 min) Moderate 01/24/2018 Referral: Megha [...] made. 12/13/2017 [phone] ([facility]) Moderate 12/13/2017 Patient Education: Patient Medication Summary Completed 12/13/2017 Patient Education: Diabetes Completed 12/13/2017 Patient Education: Hypertension Completed 12/13/2017 Care Plan: Referral Order SNOMED-CT : [id number] Pending 12/13/2017 App[facility]ment: [phone] [place] (15 min) Moderate 11/26/2017 Visit Plan: [...] followed through 09/18/2017 Appointment: Maude Man WPtel[facility] [place] (15 min) Moderate 09/18/2017 Patient Education: Patient Medication Summary Completed 09/18/2017 Referral: External, Ordering Provider Patient informed. Referral info faxed. Completed 09/17/2017 Appointment: [facility]Ptel[phone] [place] (15 min) Moderate 09/06/2017 Visit Plan: [...] Dr. Gracia. 08/23/2017 Appointment: Maude Man WPtel: [phone] [facility] (15 min) Moderate 08/23/2017 Patient Education: Patient Medication Summary Completed 08/23/2017 Care Plan: Comp Metabolic Cancelled 08/23/2017 Care Plan: Cbc With Differential Cancelled 08/23/2017 Care Plan: %Hba1C LOIN C : 39479-5 Cancelled 08/23/2017 Care Plan: Magnesium Cancelled 08/23/2017 Care Plan: Referral Order SNOMED-CT : [id number] Pending 08/23/2017 Appointment: Maude Man WPtel: [facility] (15 min) Moderate 08/13/2017 Visit Plan: CGM removed - pt tolera jomar procedure well - no changes at this time. 06/25/2017 Patient Education: Patient Medication Summary Completed 06/25/2017 Appointment: Maude Man WPtel: [facility] [place] (15 min) Moderate 06/21/2017 Visit Plan: [...] glucose control. 06/20/2017 Appointment: Shae Guerrero WPtel: [facility] (30 min) [facility] 06/20/2017 Patient Education: Patient Medication Summary Completed 06/20/2017 Visit Plan: Diabetes Mellitus - [facility] ontrolled - per recent FSBS reports. I [...] Summary Completed 06/04/2017 Appointment: Ana Burrell WPtel: [facility]5 [facility] [place] [address] (30 min) Complex 05/31/2017 Appointment: Ana Burrell WPtel: [phone] [place] [address] (30 min) Complex 05/29/2017 Appointment: Ana Burrell WPtel: [phone] (30 min) Complex 05/24/2017 Visit Plan: Left [...] current medications. 04/24/2017 Appointment: Ana Burrell WPtel: [address] [place], [place] [phone] [place] [address] New Patient 04/24/2017 Patient Education: Patient Medication Summary Completed 04/24/2017 Appointment: Shae Guerrero WPtel: [address] [place], [place] [phone] New Patient 04/20/2017 Referral: External, Ordering Provider Referral Appointment Requested Referral: Shonna King [facility] will call her to schedule appt Initiated [...] 1 week with blood sugars continue tomary morrisonflex for sinus infection . Diabetes Mellitus - [...]
--- OUTSIDE RECORDS SUMMARY | 2019-01-29 06:11 | XMS REPORT | CCD ---
Author Author Baylee Burrell Organization Maude Man MD, [facility] Address [address] [place] [address] Phone Care Team Providers Care Flame Cutter Name Role Phone PP Unavailable CCM Unavailable Summary Purpose Interface Exchange Insurance Providers Payer name Policy type / Coverage type Covered republican ID Effective Begin Date Effective End Date WPS Medicare Part B Blue Cross/Blue Shield [id number] Unknown Blue Cross Blue Shield [facility] [place] e Cross/Blue Shield [id number] Un known Blue Cross/Blue Shield [id number] Unknown Family history Sister Diagnosis Age At [...] 1 04/24/2017 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/[address]: 173818008 Never smoker 04/24/[address]: 394991398 Never drinks alcohol 04/24/2017 Allergies, Adverse Reactions, Alerts Substance Reaction Codes Entered Date Inactivated Date Status Levaquin RxNorm: 25221 04/24/2017 No Inactive Date Active Past Medical [...] Date Stop Date Sta tus Fill Instructions potassium chloride E R 20 mEq tablet,extended release RxNorm: 437508 1 Tablet(s) PO daily 05/23/2018 05/25/2018 Active Lasix 40 mg tablet RxNorm: 534816 1 Tablet(s) PO daily 05/23/2018 05/25/2018 Active Keflex 500 mg capsule RxNorm: 754533 1 Capsule(s) PO TID 05/23/2018 05/29/2018 Active Zofran 4 mg tablet RxNorm: 776401 1 Tablet(s) PO Q6 PRN 05/06/2018 No Stop Date Active tramadol 50 mg tablet RxNorm: 094405 1 Tablet(s) PO Q6 PRN 05/06/2018 No Stop Date Active Basaglar KwikPen U-1 00 Insulin 100 unit/mL (3 mL) subcutaneous RxNorm: 8113152 46 Unit(s) SQ daily 05/03/2018 11/28/2018 Active qty sufficient for 1 month doxycycline hyclate 100 mg tablet RxNorm: 6417880 1 Tablet(s) PO BID 03/19/2018 03/25/2018 Inactive mupirocin 2 % topica l ointment RxNorm: 750850 1 Application TOP BID 03/19/2018 03/28/2018 Inactive Basaglar KwikPen U-1 00 Insulin 100 unit/mL (3 mL) subcutaneous RxNorm: 8434450 45 Unit(s) SQ daily 03/06/2018 05/02/2018 Inactive Basaglar KwikPen U-1 00 Insulin 100 unit/mL (3 mL) subcutaneous RxNorm: 0638678 45 Unit(s) SQ daily 03/06/2018 03/05/2018 Inactive Toujeo SoloStar U-30 0 Insulin 300 unit/mL (1.5 mL) subcutaneous pen RxNorm: 9491286 Unit(s) INJECT 45 UNITS UNDER THE SKIN DAILY 02/22/2018 03/05/2018 Inactive 30 d ay supply Toujeo SoloStar U-30 0 Insulin 300 unit/mL (1.5 mL) subcutaneous pen RxNorm: 8412332 INJECT 40 UNITS UNDER THE SKIN DAILY 02/21/2018 02/21/2018 Inactive Keflex 500 mg capsule RxNorm: 739660 1 Capsule(s) PO TID 02/01/2018 02/07/2018 Inactive Toujeo SoloStar U-30 0 Insulin 300 unit/mL (1.5 mL) subcutaneous pen RxNorm: 8588701 45 Unit(s) SQ daily 12/26/2017 No Stop Date Active atorvastatin 40 mg t ablet RxNorm: 537908 Tablet(s) TAKE ONE-REA LF TABLET BY MOUTH EVERY EVENING 12/26/2017 No Stop Date Active Restasis 0.05 % eye drops in a dropperette RxNorm: 278702 INSTILL ONE DROP IN E ACH EYE EVERY 12 HOURS 12/24/2017 04/22/2018 Inactive atorvastatin 40 mg t ablet RxNorm: 035063 TAKE ONE TABLET BY MO UTH EVERY EVENING 12/17/2017 12/25/2017 In active venlafaxine ER 150 m g tablet,extended release 24 hr RxNorm: 807802 TAKE ONE CAPSULE BY MOUTH DAILY 10/11/2017 07/07/2018 Active metoprolol succinate ER 50 mg tablet,extended release 24 hr RxNorm: 765715 TAKE ONE TABLET BY MOUTH DAILY 10/11/2017 07/07/2018 Active atorvastatin 40 mg t ablet RxNorm: 335707 TAKE ONE TABLET BY [facility] EVERY EVENING 10/11/2017 12/16/2017 In active metoprolol succinate ER 25 mg tablet,extended release 24 hr RxNorm: 073136 1/2 Tablet(s) PO daily 09/18/2017 03/16/2018 Inactive metronidazole 500 mg tablet RxNorm: 229548 1 Tablet(s) PO TID 08/23/2017 09/01/2017 Inactive Diflucan 150 mg tablet RxNorm: 590053 1 Tablet(s) PO daily 08/23/2017 09/01/2017 Inactive atorvastatin 40 mg t ablet RxNorm: 202135 1 Tablet(s) PO QPM 08/02/2017 10/10/2017 Inactive Toujeo SoloStar U-30 0 Insulin 300 unit/mL (1.5 mL) subcutaneous pen RxNorm: 5546907 40 Unit(s) SQ daily 07/30/2017 12/25/2017 Inactive Novofine 32 32 gauge x 1/4" needle RxNorm: USE TO TEST BLOOD SUGAR ONC E DAILY 07/26/2017 04/16/2019 Ac tive Toujeo SoloStar U-30 0 Insulin 300 unit/mL (1.5 mL) subcutaneous pen RxNorm: 5159636 INJECT 24 UNITS UNDER THE SKIN EVERY EVENING 07/26/2017 07/29/2017 Inactive Apidra U-100 Insulin 100 unit/mL subcutaneous solution RxNorm: 683936 5 Unit(s) SQ AC 06/06/2017 06/06/2017 Inactive start with 5 units with breakfast -call with blood sugars in 1 week Keflex 500 mg capsule RxNorm: 552003 1 Capsule(s) PO TID 06/04/2017 06/10/2017 Inactive Apidra U-100 Insulin 100 unit/mL subcutaneous solution RxNorm: 375198 5 Unit(s) SQ AC 06/04/2017 06/05/2017 Inactive start with 5 units with breakfast -call with blood sugars in 1 week Restasis 0.05 % eye drops in a dropperette RxNorm: 380126 1 gtts ophthalmic (ey e) Q12H 06/04/2017 07/03/2017 Inactive Toujeo SoloStar U-30 0 Insulin 300 unit/mL (1.5 mL) subcutaneous pen RxNorm: 1812480 28 Unit(s) SQ QPM x1 week, then 32 units daily. 04/26/2017 08/28/2017 Inactive Restasis MultiDose 0 .05 % eye drops RxNorm: 367580 1 Drop(s) ophthalmic (eye) daily - BID 04/24/2017 No Stop Date Active cyanocobalamin (vit B-12) 1,000 mcg/mL injection solution RxNorm: 105048 1 Milliliter(s) Inj QW -BIW 04/24/2017 07/22/2017 Inactive disp with syringes please Toujeo SoloStar U-30 0 Insulin 300 unit/mL (1.5 mL) subcutaneous pen RxNorm: 7842174 24 Unit(s) SQ QPM 04/24/2017 04/23/2017 Inactive Novofine 32 32 gauge x 1/4" needle RxNorm: 1 test Miscellaneous daily 04/24/2017 07/22/2017 In active E11.65 use with westley venlafaxine ER 150 m g tablet,extended release 24 hr RxNorm: 719852 1 Tablet(s) PO daily 04/24/2017 10/10/2017 Inactive cyanocobalamin (vit B-12) 1,000 mcg/mL injection solution RxNorm: 784264 1 Milliliter(s) Inj QW -BIW 04/24/2017 04/23/2017 Inactive metoprolol succinate ER 50 mg tablet,extended release 24 hr RxNorm: 653347 1 Tablet(s) PO daily 04/24/2017 09/17/2017 Inactive Toujeo SoloStar U-30 0 Insulin 300 unit/mL (1.5 mL) subcutaneous pen RxNorm: 5480014 24 Unit(s) SQ QPM 04/24/2017 04/25/2017 Inactive Centrum Silver tablet RxNorm: 1 Tablet(s) PO daily No Start Date Active Novolog U-100 Insuli n aspart 100 unit/mL subcutaneous solution RxNorm: 456087 5 Unit(s) SQ AC No Start Date Active magnesium 250 mg tablet RxNorm: 1 Tablet(s) PO as needed No Start Date Active Probiotic Blend oral RxNorm: 821040 oral No Start Date Active Calcium 600 + D(3) 6 00 mg (1,500 mg)-400 unit tablet RxNorm: 721257 1 Tablet(s) PO as needed No Start Date Active atorvastatin 40 mg t ablet RxNorm: 137744 1 Tablet(s) PO QPM No Start Date 08/01/2017 Inactive Novofine 32 32 gauge x 1/4" needle RxNorm: 1 Miscellaneous daily No Start Date 04/23/2017 Inactive cyanocobalamin (vit B-12) 1,000 mcg/mL injection solution RxNorm: 348125 1 Milliliter(s) Inj No Start Date 04/23/2017 Inactive metoprolol succinate ER 50 mg tablet,extended release 24 hr RxNorm: 326991 1 Tablet(s) PO daily No Start Date 04/23/2017 Inactive lisinopril 5 mg tablet RxNorm: 042613 1 Tablet(s) PO QPM No Start Date 04/23/2017 Inactive Restasis MultiDose 0 .05 % eye drops RxNorm: 621426 Drop(s) ophthalmic (e ye) No Start Date 04/23/2017 Inactive venlafaxine ER 150 m g capsule,extended release 24 hr RxNorm: 586960 1 Capsule(s) PO daily No Start Date 04/23/2017 Inactive Toudov SoloStar U-30 0 Insulin subcutaneous RxNorm: subcutaneous [...] Code Item Item Code Result Date Lipase Cga417 LIPASE 26 U/L 05/06/2018 Comp Metabolic Abz987 NA 140 mEq/L 05/06/2018 Comp Metabolic Tmo969 K 4.5 mEq/L 05/06/2018 Comp Metabolic Avs762 CL 109 mEq/L 05/06/2018 Comp Metabolic Yex806 CO2 24.0 mEq/L 05/06/2018 Comp Metabolic Rek052 AN ION GAP 12 05/06/2018 Comp Metabolic Iey626 GL UCOSE 341 mg/dL 05/06/2018 Comp Metabolic Zpp406 Cr eat 1.6 mg/dL 05/06/2018 Comp Metabolic Bwv933 eG FR 34 ml/min/1.73m2 05/06 Comp Metabolic Ssu790 BUN 39 mg/dL 05/06/2018 Comp Metabolic Ipn587 B/ C Ratio 24.7 Ratio 05/06/2018 Comp Metabolic Bbd571 CA LCIUM 9.1 mg/dL 05/06/2018 Comp Metabolic Fna377 AL K PHOS 61 U/L 05/06/2018 Comp Metabolic Wvo265 T(SGOT) 21 U/L 05/06/2018 Comp Metabolic Hnt776 AL T(SGPT) 28 U/L 05/06/2018 Comp Metabolic Qqb469 BI LI T 0.3 mg/dL 05/06/2018 Comp Metabolic Eex352 AL BUMIN 3.8 g/dL 05/06/2018 Comp Metabolic Xzk599 TP RO 6.1 g/dL 05/06/2018 Comp Metabolic Ctb230 GL OB 2.4 g/dL 05/06/2018 Comp Metabolic Ztx934 A/ G Ratio 1.6 Ratio 05/06/2018 Comp Metabolic Ikl758 Os mo 302 mOsmo 05/06/2018 Amylase Ord34 AMYLASE 48 U/L 05/06/2018 Lipid Ord30 CHOL 171 mg/dL 12/13/2017 Lipid Ord30 HDL 64.0 mg/dl 12/13/2017 Lipid Ord30 TRIG 89 mg/dL 12/13/2017 Lipid Ord30 LDL 89 mg/dL 12/13/2017 Lipid Ord30 C/HDL 2.7 Ratio 12/13/2017 Comp Metabolic Kad597 NA 140 mEq/L 12/13/2017 Comp Metabolic Qmq705 K 4.4 mEq/L 12/13/2017 Comp Metabolic Ngv175 CL 107 mEq/L 12/13/2017 Comp Metabolic Dqm985 CO2 23.0 mEq/L 12/13/2017 Comp Metabolic Mmc776 AN ION GAP 14 12/13/2017 Comp Metabolic Rrq404 GL UCOSE 179 mg/dL 12/13/2017 Comp Metabolic Ejm904 Cr eat 1.7 mg/dL 12/13/2017 Comp Metabolic Dhq645 eG FR 31 ml/min/1.73m2 12/13 Comp Metabolic Col209 BUN 40 mg/dL 12/13/2017 Comp Metabolic Hyy204 B/ C Ratio 23.3 Ratio 12/13/2017 Comp Metabolic Owd600 CA LCIUM 10.3 mg/dL 12/13/2017 Comp Metabolic Jnv230 AL K PHOS 54 U/L 12/13/2017 Comp Metabolic Ueb557 T(SGOT) 41 U/L 12/13/2017 Comp Metabolic Yat900 AL T(SGPT) 44 U/L 12/13/2017 Comp Metabolic Pyg549 BI LI T 0.4 mg/dL 12/13/2017 Comp Metabolic Ypx743 AL BUMIN 4.9 g/dL 12/13/2017 Comp Metabolic Ulg145 TP RO 7.7 g/dL 12/13/2017 Comp Metabolic Xwd917 GL OB 2.8 g/dL 12/13/2017 Comp Metabolic Yas009 A/ G Ratio 1.8 Ratio 12/13/2017 Comp Metabolic Ule072 Os mo 294 mOsmo 12/13/2017 Tsh Ord6 TSH (3rd IS) 2.56 uIU/mL 12/13/2017 %Hba1C Tky902 % HbA1c 27603-8 9.6 % 12/13/2017 %Hba1C Cnl873 Gluc Ave 229 mg/dL 12/13/2017 Cbc With [...] 32.0 pg 12/13/2017 Cbc With Differential Ord2 Ralls% 8.0 % 12/13/2017 Cbc With Differential Ord2 [...] 1.44 K/ul 12/13/2017 Cbc With Differential Ord2 Ralls ABS# 0.5 K/ul 12/13/2017 Cbc With Differential Ord2 Eos ABS# 0.1 K/ul 12/13/2017 Cbc With Differential Ord2 Baso ABS# 0.0 K/ul 12/13/2017 %Hba1C Bqc670 % HbA1c 78867-9 13.1 % 04/24/2017 %Hba1C Hpz544 Gluc Ave 329 mg/dL 04/24/2017 Cbc With [...] 32.0 pg 04/24/2017 Cbc With Differential Ord2 Ralls% 11.0 % 04/24/2017 Cbc With Differential Ord2 [...] 2.39 K/ul 04/24/2017 Cbc With Differential Ord2 Ralls ABS# 0.8 K/ul 04/24/2017 Cbc With Differential Ord2 Eos ABS# 0.1 K/ul 04/24/2017 Cbc With Differential Ord2 Baso ABS# 0.0 K/ul 04/24/2017 Comp Metabolic Fib351 NA 142 mEq/L 04/24/2017 Comp Metabolic Ogr753 K 3.8 mEq/L 04/24/2017 Comp Metabolic Iiq043 CL 105 mEq/L 04/24/2017 Comp Metabolic Kyu021 CO2 27.0 mEq/L 04/24/2017 Comp Metabolic Sqv846 AN ION GAP 14 04/24/2017 Comp Metabolic Ilf395 GL UCOSE 203 mg/dL 04/24/2017 Comp Metabolic Tjq399 Cr eat 1.9 mg/dL 04/24/2017 Comp Metabolic Rya580 eG FR 28 ml/min/1.73m2 04/24 Comp Metabolic Bfe769 BUN 26 mg/dL 04/24/2017 Comp Metabolic Cfd288 B/ C Ratio 13.6 Ratio 04/24/2017 Comp Metabolic Oyr796 CA LCIUM 9.9 mg/dL 04/24/2017 Comp Metabolic Yfw374 AL K PHOS 79 U/L 04/24/2017 Comp Metabolic Rst554 T(SGOT) 25 U/L 04/24/2017 Comp Metabolic Qmh536 AL T(SGPT) 36 U/L 04/24/2017 Comp Metabolic Vkj520 BI LI T 0.3 mg/dL 04/24/2017 Comp Metabolic Hoz256 AL BUMIN 4.5 g/dL 04/24/2017 Comp Metabolic Elf726 TP RO 6.9 g/dL 04/24/2017 Comp Metabolic Rny136 GL OB 2.5 g/dL 04/24/2017 Comp Metabolic Tzy576 A/ G Ratio 1.8 Ratio 04/24/2017 Comp Metabolic Ysi433 Os mo 294 mOsmo 04/24/2017 Review of [...] Exam - General 1995 Eyes conjunctiva/eyelids Overall: eyelids normal 05/23/2018 None [...] Date URINALYSIS NONAUTO W /O SCOPE CPT-4: 73361 05/06/2018 GLUC MONITOR CONT PH YS I&R CPT-4: 12213 09/18/2017 GLUCOSE MONITORING CONT CPT-4: 06545 06/20/2017 Vital Signs Date Vital 05/23/2018 Blood Pressure 1: 146/66 Code: 8480-6 BMI: 22.4 Code: 34644-3 Heart Rate 1: 85 bpm Height: 5'6" SpO2: 97% Weight: 139 lbs 05/06/2018 Blood Pressure 1: 128/86 Code: 8480-6 BMI: 20.8 Code: 02580-4 Heart Rate 1: 96 bpm Height: 5'6" SpO2: 96% Weight: 129 lbs 04/30/2018 Blood Pressure 1: 124/66 Code: 8480-6 Heart Rate 1: 87 bpm Height: 5'6" SpO2: 98% 03/19/2018 Blood Pressure 1: 142/84 Code: 8480-6 BMI: 20.5 Code: 69643-7 Heart Rate 1: 88 bpm Height: 5'6" SpO2: 98% Temperature: 36.6 (C ) / 97.9 (F) Weight: 129 lbs 02/01/2018 Blood Pressure 1: 110/52 Code: 8480-6 BMI: 19.9 Code: 78391-5 Height: 5'6" Weight: 125 lbs 12/13/2017 Blood Pressure 1: 140/80 Code: 8480-6 BMI: 19.9 Code: 06305-0 Heart Rate 1: 72 bpm Height: 5'6" SpO2: 95% Weight: 125 lbs 09/18/2017 Blood Pressure 1: 126/82 Code: 8480-6 BMI: 20.0 Code: 45003-0 Heart Rate 1: 103 bpm Height: 5'6" SpO2: 98% Weight: 126 lbs 08/23/2017 Blood Pressure 1: 118/62 Code: 8480-6 Heart Rate 1: 110 bpm Height: 5'6" SpO2: 95% Temperature: 37.1 (C ) / 98.7 (F) 06/20/2017 Heigh t: Weight: 06/11/2017 Blood Pressure 1: 142/76 Code: 8480-6 BMI: 21.3 Code: 64796-7 Heart Rate 1: 102 bpm Height: 5'6" SpO2: 97% Weight: 134 lbs 06/04/2017 Blood Pressure 1: 160/84 Code: 8480-6 BMI: 20.8 Code: 97134-3 Heart Rate 1: 87 bpm Height: 5'6" SpO2: 97% Weight: 131 lbs 04/24/2017 Blood Pressure 1: 132/80 Code: 8480-6 BMI: 20.8 Code: 85521-2 Heart Rate 1: 84 bpm Height: 5'6" [...] Encounters Encounter Performer Loca tion Codes Date EST. PATIENT, LEVEL III Diagnosis: Dysuria[ICD10: R30.0] Diagnosis: Type 2 diabetes mellitus with hyperglycemia[ICD10: E11.65] Diagnosis: Localized edema[ICD10: R60.0] [facility] CPT-4: 46503 05/23/2018 ([id number]) 10429 EST. P ATIENT, LEVEL IV Diagnosis: Low back pain[ICD10: M54.5] Diagnosis: Left upper quadrant pain[ICD10: R10.12] Diagnosis: Pain in left hip[ICD10: M25.552] Diagnosis: Pain in left shoulder[ICD10: M25.512] Diagnosis: Repeated falls[ICD10: R29.6] Diagnosis: Unsteadiness on feet[ICD10: R26.81] Diagnosis: Chronic kidney disease, stage 3 (moderate)[ICD10: N18.3] [facility] CPT-4: 64672 05/06/2018 72834 EST. PATIENT, LEVEL III Diagnosis: Low back pain[ICD10: M54.5] Diagnosis: Pain in left hip[ICD10: M25.552] Diagnosis: Repeated falls[ICD10: R29.6] Diagnosis: Unsteadiness on feet[ICD10: R26.81] Diagnosis: Headache[ICD10: R51] Diagnosis: Type 2 diabetes mellitus with hyperglycemia[ICD10: E11.65] [facility] CPT-4: 96793 04/30/2018 ([id number]) 24496 EST. P ATIENT, LEVEL III Diagnosis: Acute recurrent maxillary sinusitis[ICD10: J01.01] Diagnosis: Rash and other nonspecific skin eruption[ICD10: R21] Ana Man MD, [facility] CPT-4: 01080 03/19/2018 ([id number]) 01978 EST. P ATIENT, LEVEL IV Diagnosis: Acute recurrent maxillary sinusitis[ICD10: J01.01] Diagnosis: Low back pain[ICD10: M54.5] Diagnosis: Unsteadiness on feet[ICD10: R26.81] Diagnosis: Essential (primary) hypertension[ICD10: I10] Ana Man MD, [facility] CPT-4: 09951 02/01/2018 ([id number]) 46208 EST. P ATIENT, LEVEL IV Diagnosis: Type 2 diabetes mellitus with hyperglycemia[ICD10: E11.65] Diagnosis: Essential (primary) hypertension[ICD10: I10] Diagnosis: Other fatigue[ICD10: R53.83] Maude Man MD, [facility] CPT-4: 62276 12/13/2017 ([id number]) 71151 EST. P ATIENT, LEVEL IV Diagnosis: Type 2 diabetes mellitus with hyperglycemia[ICD10: E11.65] Diagnosis: Essential (primary) hypertension[ICD10: I10] Diagnosis: Major depressive disorder, recurrent, in partial remission[ICD10: F33.41] Maude Man MD, [facility] CPT-4: 52045 09/18/2017 ([id number]) 14630 EST. P ATIENT, LEVEL IV Diagnosis: Pouchitis[ICD10: K91.850] Diagnosis: Other fatigue[ICD10: R53.83] Diagnosis: Type 2 diabetes mellitus with hyperglycemia[ICD10: E11.65] Diagnosis: Essential (primary) hypertension[ICD10: I10] Diagnosis: Orthostatic hypotension[ICD10: I95.1] Maude Man MD, [facility] CPT-4: 66331 08/23/2017 ([id number]) Miscellaneou s no charge Diagnosis: Type 2 diabetes mellitus with hyperglycemia[ICD10: E11.65] Shae Man MD, [facility] CPT-4: 07221 06/25/2017 ([id number]) 67262 EST. P ATIENT, LEVEL IV Diagnosis: Type 2 diabetes mellitus with hyperglycemia[ICD10: E11.65] Maude Man MD, [facility] CPT-4: 45079 06/11/2017 ([id number]) 88911 EST. P ATIENT, LEVEL IV Diagnosis: Type 2 diabetes mellitus with hyperglycemia[ICD10: E11.65] Diagnosis: Essential (primary) hypertension[ICD10: I10] Diagnosis: Acute recurrent maxillary sinusitis[ICD10: J01.01] Ana Man MD, [facility] CPT-4: 64047 06/04/2017 OFFICE VISIT, NEW - LEVEL 4 Diagnosis: Left lower quadrant pain[ICD10: R10.32] Diagnosis: Other ulcerative colitis with unspecified complications[ICD10: K51.819] Diagnosis: Essential (primary) hypertension[ICD10: I10] Diagnosis: Type 2 diabetes mellitus without complications[ICD10: E11.9] Diagnosis: Major depressive disorder, recurrent, in partial remission[ICD10: F33.41] Diagnosis: Melena[ICD10: K92.1] Ana Man MD, [facility] CPT-4: 84753 04/24/2017 Plan of Care Planned Activity Notes C odes Status Date Care Plan: Referral Order SNOMED-CT : 516405058 Pending 05/24/2018 Visit Plan: Diabetes Mellitus - [...] improve. 05/23/2018 Appointment: Shae Guerrero WPtel: [facility]5 [facility] (30 min) Complex 05/23/2018 Patient Education: Patient Medication Summary Completed 05/23/2018 Patient Education: Diabetes Completed 05/23/2018 Care Plan: Urine Culture Pending 05/23/2018 Appointment: Ana Burrell WPtel: [phone] (30 min) Complex 05/20/2018 Care Plan: CT HEAD/BRAIN W/O DYE LOINC : 62554-5 Pending 05/08/2018 Visit Plan: Abdominal pain -UA [...] hydration 05/06/2018 Appointment: Ana Burrell WPtel: [phone] (15 min) Moderate 05/06/2018 Patient Education: [...] glucose control. 04/30/2018 Appointment: Shae Guerrero WPtel: [facility] (30 min) Complex 04/30/2018 Patient Education: [...] worse 03/19/2018 Appointment: Ana Burrell WPtel: [phone] (30 min) Complex 03/19/2018 Patient Education: [...] next appt 02/01/2018 Appointment: Ana Burrell WPtel: [phone] (30 min) Complex 02/01/2018 Patient Education: Patient Medication Summary Completed 02/01/2018 Patient Education: Back Pain Completed 02/01/2018 Patient Education: Hypertension Completed 02/01/2018 Appointment: Maude Man WPtel: [facility] (15 min) Moderate 01/24/2018 Referral: Megha Garcia [...] been made. 12/13/2017 [phone] [facility] ([facility] Moderate 12/13/2017 Patient Education: Patient Medication Summary Completed 12/13/2017 Patient Education: Diabetes Completed 12/13/2017 Patient Education: Hypertension Completed 12/13/2017 Care Plan: Referral Order SNOMED-CT : 895453214 Pending 12/13/2017 [phone] [facility] ([facility] min) Moderate 11/26/2017 Visit Plan: [...] through 09/18/2017 Appointment: Maude Man [facility]Ptel[facility] (15 min) Moderate 09/18/2017 Patient Education: Patient Medication Summary Completed 09/18/2017 Referral: External, Ordering Provider Patient informed. Referral info faxed. Completed 09/17/2017 Appointment: Maude Man WPtel[facility] [place] (15 min) Moderate 09/06/2017 Visit [...] Dr. Gracia. 08/23/2017 [facility]ment[facility] [phone] [facility] [place] (15 min) Moderate 08/23/2017 Patient Education: Patient Medication Summary Completed 08/23/2017 Care Plan: Comp Metabolic Cancelled 08/23/2017 Care Plan: Cbc With Differential Cancelled 08/23/2017 Care Plan: %Hba1C NATTY C : 16980-3 Cancelled 08/23/2017 Care Plan: Magnesium Cancelled 08/23/2017 Care Plan: Referral Order SNOMED-CT : [id number] Pending 08/23/2017 [facility]ment: [facility] [phone] [facility] [place] (15 min) Moderate 08/13/2017 Visit Plan: CGM removed - pt tolera jomar procedure well - no changes at this time. 06/25/2017 Patient Education: Patient Medication Summary Completed 06/25/2017 App[facility]ment: [facility] [phone] [facility] [place] (15 min) Moderate 06/21/2017 Visit [...] glucose control. 06/20/2017 Appointment: Shae Guerrero WPtel: [address] [place], [place] [address] (30 min) Complex 06/20/2017 Patient Education: Patient Medication Summary Completed 06/20/2017 Visit Plan: Diabetes Mellitus - [facility] ontrolled - per recent FSBS reports. I [...] Summary Completed 06/04/2017 Appointment: Ana Burrell WPtel: [address] [place], [place] [phone] (30 min) Complex 05/31/2017 Appointment: Indra Ana WPtel: [address] [place], [place] [phone] (30 min) Complex 05/29/2017 Appointment: Indra Ana WPtel: [address] [place] [phone] (30 min) Complex 05/24/2017 Visit Plan: Left [...] No change in current medications. 04/24/2017 Appointment: Indra Ana WPtel: [address] [place], [place] [phone] [place] [address] New Patient 04/24/2017 Patient Education: Patient Medication Summary Completed 04/24/2017 Appointment: Shae Guerrero WPtel: [address] [place], [place] [phone] New Patient 04/20/2017 Referral: External, Ordering Provider Referral Appointment Requested Referral: Megha Garcia Referral Appointment Requested Referral: [...] in 1 week with blood sugars continue toudov keflex for sinus infection . Diabetes Mellitus [...]
--- OUTSIDE RECORDS SUMMARY | 2019-01-29 06:12 | XMS REPORT | CCD ---
Author Author Baylee Burrell Organization Maude Man MD, [facility] Address [address] [place] [address] Phone Care Team Providers Care Sales Audit Clerk Name Role Phone PP Unavailable CCM Unavailable Summary Purpose Interface Exchange Insurance Providers Payer name Policy type / Coverage type Covered constitution party ID Effective Begin Date Effective End Date WPS Medicare Part B Blue Cross/Blue Shield [id number] Unknown Blue Cross Blue Shield [facility] Tir[place] e Cross/Blue Shield [id number] Un known Blue Cross/Blue Shield [id number] Unknown Family history Sister Diagnosis Age At [...] 1 04/24/2017 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/[address]: 789602698 Never smoker 04/24/[address]: 811850901 Never drinks alcohol 04/24/2017 Allergies, Adverse Reactions, Alerts Substance Reaction Codes Entered Date Inactivated Date Status Levaquin RxNorm: 39927 04/24/2017 No Inactive Date Active Past Medical [...] ICD-9: 784.0 ICD-10: R51 Active 04/30/2018 Unknown Type 2 diabetes karina itus with hyperglycemia ICD-9: 250.02 ICD-10: E11.65 Active 06/04/2017 Unknown Acute recurrent maxi llary sinusitis ICD-9: [...] Headache ICD-9: 784.0 ICD-10: R51 04/30/2018 Active Type 2 diabetes karina itus with hyperglycemia ICD-9: 250.02 ICD-10: E11.65 06/04/2017 Active Acute recurrent maxi llary sinusitis ICD-9: [...] Date Stop Date Sta tus Fill Instructions Zofran 4 mg tablet RxNorm: 689245 1 Tablet(s) PO Q6 PRN 05/06/2018 No Stop Date Active tramadol 50 mg tablet RxNorm: 910649 1 Tablet(s) PO Q6 PRN 05/06/2018 No Stop Date Active Basaglar KwikPen U-1 00 Insulin 100 unit/mL (3 mL) subcutaneous RxNorm: 6257328 46 Unit(s) SQ daily 05/03/2018 11/28/2018 Active qty sufficient for 1 month doxycycline hyclate 100 mg tablet RxNorm: 8826578 1 Tablet(s) PO BID 03/19/2018 03/25/2018 Inactive mupirocin 2 % topica l ointment RxNorm: 585267 1 Application TOP BID 03/19/2018 03/28/2018 Inactive Basaglar KwikPen U-1 00 Insulin 100 unit/mL (3 mL) subcutaneous RxNorm: 7393079 45 Unit(s) SQ daily 03/06/2018 05/02/2018 Inactive Basaglar KwikPen U-1 00 Insulin 100 unit/mL (3 mL) subcutaneous RxNorm: 6393017 45 Unit(s) SQ daily 03/06/2018 03/05/2018 Inactive Toudaphneo SoloStar U-30 0 Insulin 300 unit/mL (1.5 mL) subcutaneous pen RxNorm: 4115595 Unit(s) INJECT 45 UNITS UNDER THE SKIN DAILY 02/22/2018 03/05/2018 Inactive 30 d ay supply Toujeo SoloStar U-30 0 Insulin 300 unit/mL (1.5 mL) subcutaneous pen RxNorm: 7459595 INJECT 40 UNITS UNDER THE SKIN DAILY 02/21/2018 02/21/2018 Inactive Keflex 500 mg capsule RxNorm: 100926 1 Capsule(s) PO TID 02/01/2018 02/07/2018 Inactive Toujeo SoloStar U-30 0 Insulin 300 unit/mL (1.5 mL) subcutaneous pen RxNorm: 5014762 45 Unit(s) SQ daily 12/26/2017 No Stop Date Active atorvastatin 40 mg t ablet RxNorm: 037229 Tablet(s) TAKE ONE-REA LF TABLET BY MOUTH EVERY EVENING 12/26/2017 No Stop Date Active Restasis 0.05 % eye drops in a dropperette RxNorm: 945801 INSTILL ONE DROP IN E ACH EYE EVERY 12 HOURS 12/24/2017 04/22/2018 Inactive atorvastatin 40 mg t ablet RxNorm: 512487 TAKE ONE TABLET BY MO UT EVERY EVENING 12/17/2017 12/25/2017 In active venlafaxine ER 150 m g tablet,extended release 24 hr RxNorm: 990620 TAKE ONE CAPSULE BY MOUTH DAILY 10/11/2017 07/07/2018 Active metoprolol succinate ER 50 mg tablet,extended release 24 hr RxNorm: 929723 TAKE ONE TABLET BY MOUTH DAILY 10/11/2017 07/07/2018 Active atorvastatin 40 mg t ablet RxNorm: 981011 TAKE ONE TABLET BY MO UT EVERY EVENING 10/11/2017 12/16/2017 In active metoprolol succinate ER 25 mg tablet,extended release 24 hr RxNorm: 921909 1/2 Tablet(s) PO daily 09/18/2017 03/16/2018 Inactive metronidazole 500 mg tablet RxNorm: 657624 1 Tablet(s) PO TID 08/23/2017 09/01/2017 Inactive Diflucan 150 mg tablet RxNorm: 039205 1 Tablet(s) PO daily 08/23/2017 09/01/2017 Inactive atorvastatin 40 mg t ablet RxNorm: 718140 1 Tablet(s) PO QPM 08/02/2017 10/10/2017 Inactive Toujeo SoloStar U-30 0 Insulin 300 unit/mL (1.5 mL) subcutaneous pen RxNorm: 9800716 40 Unit(s) SQ daily 07/30/2017 12/25/2017 Inactive Novofine 32 32 gauge x 1/4" needle RxNorm: USE TO TEST BLOOD SUGAR ONC E DAILY 07/26/2017 04/16/2019 Ac tive Toujeo SoloStar U-30 0 Insulin 300 unit/mL (1.5 mL) subcutaneous pen RxNorm: 5340719 INJECT 24 UNITS UNDER THE SKIN EVERY EVENING 07/26/2017 07/29/2017 Inactive Apidra U-100 Insulin 100 unit/mL subcutaneous solution RxNorm: 305783 5 Unit(s) SQ AC 06/06/2017 06/06/2017 Inactive start with 5 units with breakfast -call with blood sugars in 1 week Keflex 500 mg capsule RxNorm: 161331 1 Capsule(s) PO TID 06/04/2017 06/10/2017 Inactive Apidra U-100 Insulin 100 unit/mL subcutaneous solution RxNorm: 932466 5 Unit(s) SQ AC 06/04/2017 06/05/2017 Inactive start with 5 units with breakfast -call with blood sugars in 1 week Restasis 0.05 % eye drops in a dropperette RxNorm: 298254 1 gtts ophthalmic (ey e) Q12H 06/04/2017 07/03/2017 Inactive Toujeo SoloStar U-30 0 Insulin 300 unit/mL (1.5 mL) subcutaneous pen RxNorm: 0216018 28 Unit(s) SQ QPM x1 week, then 32 units daily. 04/26/2017 08/28/2017 Inactive Restasis MultiDose 0 .05 % eye drops RxNorm: 266639 1 Drop(s) ophthalmic (eye) daily - BID 04/24/2017 No Stop Date Active cyanocobalamin (vit B-12) 1,000 mcg/mL injection solution RxNorm: 307120 1 Milliliter(s) Inj QW -BIW 04/24/2017 07/22/2017 Inactive disp with syringes please Toujeo SoloStar U-30 0 Insulin 300 unit/mL (1.5 mL) subcutaneous pen RxNorm: 5195953 24 Unit(s) SQ QPM 04/24/2017 04/23/2017 Inactive Novofine 32 32 gauge x 1/4" needle RxNorm: 1 test Miscellaneous daily 04/24/2017 07/22/2017 In active E11.65 use with toudov venlafaxine ER 150 m g tablet,extended release 24 hr RxNorm: 287524 1 Tablet(s) PO daily 04/24/2017 10/10/2017 Inactive cyanocobalamin (vit B-12) 1,000 mcg/mL injection solution RxNorm: 742497 1 Milliliter(s) Inj QW -BIW 04/24/2017 04/23/2017 Inactive metoprolol succinate ER 50 mg tablet,extended release 24 hr RxNorm: 913838 1 Tablet(s) PO daily 04/24/2017 09/17/2017 Inactive Toudov SoloStar U-30 0 Insulin 300 unit/mL (1.5 mL) subcutaneous pen RxNorm: 1749193 24 Unit(s) SQ QPM 04/24/2017 04/25/2017 Inactive Centrum Silver tablet RxNorm: 1 Tablet(s) PO daily No Start Date Active Novolog U-100 Insuli n aspart 100 unit/mL subcutaneous solution RxNorm: 236156 5 Unit(s) SQ AC No Start Date Active magnesium 250 mg tablet RxNorm: 1 Tablet(s) PO as needed No Start Date Active Probiotic Blend oral RxNorm: 128056 oral No Start Date Active Calcium 600 + D(3) 6 00 mg (1,500 mg)-400 unit tablet RxNorm: 532919 1 Tablet(s) PO as needed No Start Date Active atorvastatin 40 mg t ablet RxNorm: 609216 1 Tablet(s) PO QPM No Start Date 08/01/2017 Inactive Novofine 32 32 gauge x 1/4" needle RxNorm: 1 Miscellaneous daily No Start Date 04/23/2017 Inactive cyanocobalamin (vit B-12) 1,000 mcg/mL injection solution RxNorm: 369735 1 Milliliter(s) Inj No Start Date 04/23/2017 Inactive metoprolol succinate ER 50 mg tablet,extended release 24 hr RxNorm: 900910 1 Tablet(s) PO daily No Start Date 04/23/2017 Inactive lisinopril 5 mg tablet RxNorm: 029667 1 Tablet(s) PO QPM No Start Date 04/23/2017 Inactive Restasis MultiDose 0 .05 % eye drops RxNorm: 478694 Drop(s) ophthalmic (e ye) No Start Date 04/23/2017 Inactive venlafaxine ER 150 m g capsule,extended release 24 hr RxNorm: 686247 1 Capsule(s) PO daily No Start Date 04/23/2017 Inactive Toudov PadillaoStar U-30 0 Insulin subcutaneous RxNorm: subcutaneous No Start Date 04/23/2017 Inactive Medication Administered No Medication Administered data Immunizations No Immunization data Assessments Condition Codes Effectiv e Dates Pain in left hip ICD-10: M25.552 ICD-9: [...] 05/06/2018 Headache ICD-10: R51 ICD-9: 784.0 04/30/2018 Type 2 diabetes mellitus with hyperglycemia ICD-10: E11.65 ICD-9: 250.02 04/30/2018 Rash and other nonspecific skin eruption [...] Visit Reason For Visit Effective Dates Notes abdominal pain 05/06/2018 dizziness 04/30/2018 sore throat 03/19/2018 low back and leg pain 02/01/2018 headache 12/13/2017 diabetes mellitus 09/18/2017 gait abnormality 08/23/2017 diabetes mellitus 06/20/2017 continuous blood glucose monitor diabetes mellitus 06/11/2017 diabetes mellitus 06/04/2017 diabetes mellitus 04/24/2017 Results Observation Observation Code Item Item Code Result Date Lipase Vud022 LIPASE 26 U/L 05/06/2018 Comp Metabolic Qbs879 NA 140 mEq/L 05/06/2018 Comp Metabolic Qky127 K 4.5 mEq/L 05/06/2018 Comp Metabolic Ycf028 CL 109 mEq/L 05/06/2018 Comp Metabolic Cwb670 CO2 24.0 mEq/L 05/06/2018 Comp Metabolic Aib835 AN ION GAP 12 05/06/2018 Comp Metabolic Qah271 GL UCOSE 341 mg/dL 05/06/2018 Comp Metabolic Uen949 Cr eat 1.6 mg/dL 05/06/2018 Comp Metabolic Wtb703 eG FR 34 ml/min/1.73m2 05/06 Comp Metabolic Rrv239 BUN 39 mg/dL 05/06/2018 Comp Metabolic Aan063 B/ C Ratio 24.7 Ratio 05/06/2018 Comp Metabolic Vib881 CA LCIUM 9.1 mg/dL 05/06/2018 Comp Metabolic Ucy758 AL K PHOS 61 U/L 05/06/2018 Comp Metabolic Ykq250 T(SGOT) 21 U/L 05/06/2018 Comp Metabolic Eku399 AL T(SGPT) 28 U/L 05/06/2018 Comp Metabolic Gxs690 BI LI T 0.3 mg/dL 05/06/2018 Comp Metabolic Kkt729 AL BUMIN 3.8 g/dL 05/06/2018 Comp Metabolic Grd901 TP RO 6.1 g/dL 05/06/2018 Comp Metabolic Ipu833 GL OB 2.4 g/dL 05/06/2018 Comp Metabolic Ehg079 A/ G Ratio 1.6 Ratio 05/06/2018 Comp Metabolic Vpd220 Os mo 302 mOsmo 05/06/2018 Amylase Ord34 AMYLASE 48 U/L 05/06/2018 Lipid Ord30 CHOL 171 mg/dL 12/13/2017 Lipid Ord30 HDL 64.0 mg/dl 12/13/2017 Lipid Ord30 TRIG 89 mg/dL 12/13/2017 Lipid Ord30 LDL 89 mg/dL 12/13/2017 Lipid Ord30 C/HDL 2.7 Ratio 12/13/2017 Comp Metabolic Jxy473 NA 140 mEq/L 12/13/2017 Comp Metabolic Pxi772 K 4.4 mEq/L 12/13/2017 Comp Metabolic Etu984 CL 107 mEq/L 12/13/2017 Comp Metabolic Ixu846 CO2 23.0 mEq/L 12/13/2017 Comp Metabolic Asm516 AN ION GAP 14 12/13/2017 Comp Metabolic Qhe599 GL UCOSE 179 mg/dL 12/13/2017 Comp Metabolic Pzc033 Cr eat 1.7 mg/dL 12/13/2017 Comp Metabolic Fcw471 eG FR 31 ml/min/1.73m2 12/13 Comp Metabolic Yjc925 BUN 40 mg/dL 12/13/2017 Comp Metabolic Ubl511 B/ C Ratio 23.3 Ratio 12/13/2017 Comp Metabolic Prw338 CA LCIUM 10.3 mg/dL 12/13/2017 Comp Metabolic Gop197 AL K PHOS 54 U/L 12/13/2017 Comp Metabolic Dgo020 T(SGOT) 41 U/L 12/13/2017 Comp Metabolic Xxf984 AL T(SGPT) 44 U/L 12/13/2017 Comp Metabolic Oab791 BI LI T 0.4 mg/dL 12/13/2017 Comp Metabolic Tqo219 AL BUMIN 4.9 g/dL 12/13/2017 Comp Metabolic Sqp344 TP RO 7.7 g/dL 12/13/2017 Comp Metabolic Pzs702 GL OB 2.8 g/dL 12/13/2017 Comp Metabolic Crg308 A/ G Ratio 1.8 Ratio 12/13/2017 Comp Metabolic Vgh597 Os mo 294 mOsmo 12/13/2017 Tsh Ord6 TSH (3rd IS) 2.56 uIU/mL 12/13/2017 %Hba1C Sso783 % HbA1c 70707-1 9.6 % 12/13/2017 %Hba1C Rjn398 Gluc Ave 229 mg/dL 12/13/2017 Cbc With [...] 32.0 pg 12/13/2017 Cbc With Differential Ord2 [place]% 8.0 % 12/13/2017 Cbc With Differential Ord2 [...] 1.44 K/ul 12/13/2017 Cbc With Differential Ord2 [place] ABS# 0.5 K/ul 12/13/2017 Cbc With Differential Ord2 Eos ABS# 0.1 K/ul 12/13/2017 Cbc With Differential Ord2 Baso ABS# 0.0 K/ul 12/13/2017 %Hba1C Fox480 % HbA1c 63666-6 13.1 % 04/24/2017 %Hba1C Tko689 Gluc Ave 329 mg/dL 04/24/2017 Cbc With [...] 32.0 pg 04/24/2017 Cbc With Differential Ord2 [place]% 11.0 % 04/24/2017 Cbc With Differential Ord2 [...] 2.39 K/ul 04/24/2017 Cbc With Differential Ord2 [place] ABS# 0.8 K/ul 04/24/2017 Cbc With Differential Ord2 Eos ABS# 0.1 K/ul 04/24/2017 Cbc With Differential Ord2 Baso ABS# 0.0 K/ul 04/24/2017 Comp Metabolic Gdr859 NA 142 mEq/L 04/24/2017 Comp Metabolic Qnn021 K 3.8 mEq/L 04/24/2017 Comp Metabolic Joq254 CL 105 mEq/L 04/24/2017 Comp Metabolic Flz128 CO2 27.0 mEq/L 04/24/2017 Comp Metabolic Fiz134 AN ION GAP 14 04/24/2017 Comp Metabolic Wzi011 GL UCOSE 203 mg/dL 04/24/2017 Comp Metabolic Zlu053 Cr eat 1.9 mg/dL 04/24/2017 Comp Metabolic Hyb529 eG FR 28 ml/min/1.73m2 04/24 Comp Metabolic Owe521 BUN 26 mg/dL 04/24/2017 Comp Metabolic Iol570 B/ C Ratio 13.6 Ratio 04/24/2017 Comp Metabolic Gzr830 CA LCIUM 9.9 mg/dL 04/24/2017 Comp Metabolic Biu894 AL K PHOS 79 U/L 04/24/2017 Comp Metabolic Mwz790 T(SGOT) 25 U/L 04/24/2017 Comp Metabolic Dhh234 AL T(SGPT) 36 U/L 04/24/2017 Comp Metabolic Ark572 BI LI T 0.3 mg/dL 04/24/2017 Comp Metabolic Cyf157 AL BUMIN 4.5 g/dL 04/24/2017 Comp Metabolic Vxr248 TP RO 6.9 g/dL 04/24/2017 Comp Metabolic Lif558 GL OB 2.5 g/dL 04/24/2017 Comp Metabolic Ssa007 A/ G Ratio 1.8 Ratio 04/24/2017 Comp Metabolic Rmv848 Os mo 294 mOsmo 04/24/2017 Review of Systems System Result Effective Dates Constitutional recent illness 05/06/2018 Constitutional anorexia 05/06/2018 [...] Date URINALYSIS NONAUTO W /O SCOPE CPT-4: 32951 05/06/2018 GLUC MONITOR CONT PH YS I&R CPT-4: 74698 09/18/2017 GLUCOSE MONITORING CONT CPT-4: 53344 06/20/2017 Vital Signs Date Vital 05/06/2018 Blood Pressure 1: 128/86 Code: 8480-6 BMI: 20.8 Code: 08644-2 Heart Rate 1: 96 bpm Height: 5'6" SpO2: 96% Weight: 129 lbs 04/30/2018 Blood Pressure 1: 124/66 Code: 8480-6 Heart Rate 1: 87 bpm Height: 5'6" SpO2: 98% 03/19/2018 Blood Pressure 1: 142/84 Code: 8480-6 BMI: 20.5 Code: 26124-8 Heart Rate 1: 88 bpm Height: 5'6" SpO2: 98% Temperature: 36.6 (C ) / 97.9 (F) Weight: 129 lbs 02/01/2018 Blood Pressure 1: 110/52 Code: 8480-6 BMI: 19.9 Code: 03187-6 Height: 5'6" Weight: 125 lbs 12/13/2017 Blood Pressure 1: 140/80 Code: 8480-6 BMI: 19.9 Code: 39522-6 Heart Rate 1: 72 bpm Height: 5'6" SpO2: 95% Weight: 125 lbs 09/18/2017 Blood Pressure 1: 126/82 Code: 8480-6 BMI: 20.0 Code: 61486-0 Heart Rate 1: 103 bpm Height: 5'6" SpO2: 98% Weight: 126 lbs 08/23/2017 Blood Pressure 1: 118/62 Code: 8480-6 Heart Rate 1: 110 bpm Height: 5'6" SpO2: 95% Temperature: 37.1 (C ) / 98.7 (F) 06/20/2017 Heigh t: Weight: 06/11/2017 Blood Pressure 1: 142/76 Code: 8480-6 BMI: 21.3 Code: 74823-1 Heart Rate 1: 102 bpm Height: 5'6" SpO2: 97% Weight: 134 lbs 06/04/2017 Blood Pressure 1: 160/84 Code: 8480-6 BMI: 20.8 Code: 09052-3 Heart Rate 1: 87 bpm Height: 5'6" SpO2: 97% Weight: 131 lbs 04/24/2017 Blood Pressure 1: 132/80 Code: 8480-6 BMI: 20.8 Code: 96098-8 Heart Rate 1: 84 bpm Height: 5'6" SpO2: 99% Weight: 131 lbs Functional Status No Functional Status data History of Present Illness Symptom Name Status Resu lt Effective Date Notes Location in the [facility] 05/06/2018 None Radiating [...] Encounters Encounter Performer Loca tion Codes Date ([id number]) [id number] EST. P ATIENT, LEVEL IV Diagnosis: Low back pain[ICD10: M54.5] Diagnosis: Left upper quadrant pain[ICD10: R10.12] Diagnosis: Pain in left hip[ICD10: M25.552] Diagnosis: Pain in left shoulder[ICD10: M25.512] Diagnosis: Repeated falls[ICD10: R29.6] Diagnosis: Unsteadiness on feet[ICD10: R26.81] Diagnosis: Chronic kidney disease, stage 3 (moderate)[ICD10: N18.3] Ana Man MD, [facility] CPT-4: 16227 05/06/2018 [id number] EST. PATIENT, LEVEL III Diagnosis: Low back pain[ICD10: M54.5] Diagnosis: Pain in left hip[ICD10: M25.552] Diagnosis: Repeated falls[ICD10: R29.6] Diagnosis: Unsteadiness on feet[ICD10: R26.81] Diagnosis: Headache[ICD10: R51] Diagnosis: Type 2 diabetes mellitus with hyperglycemia[ICD10: E11.65] Shae Man MD, [facility] CPT-4: 81693 04/30/2018 ([id number]) 76531 EST. P ATIENT, LEVEL III Diagnosis: Acute recurrent maxillary sinusitis[ICD10: J01.01] Diagnosis: Rash and other nonspecific skin eruption[ICD10: R21] Ana Man MD, [facility] CPT-4: 89847 03/19/2018 ([id number]) 70756 EST. P ATIENT, LEVEL IV Diagnosis: Acute recurrent maxillary sinusitis[ICD10: J01.01] Diagnosis: Low back pain[ICD10: M54.5] Diagnosis: Unsteadiness on feet[ICD10: R26.81] Diagnosis: Essential (primary) hypertension[ICD10: I10] Ana Man MD, [facility] CPT-4: 17291 02/01/2018 ([id number]) 48181 EST. P ATIENT, LEVEL IV Diagnosis: Type 2 diabetes mellitus with hyperglycemia[ICD10: E11.65] Diagnosis: Essential (primary) hypertension[ICD10: I10] Diagnosis: Other fatigue[ICD10: R53.83] Maude Man MD, [facility] CPT-4: 09400 12/13/2017 ([id number]) 34299 EST. P ATIENT, LEVEL IV Diagnosis: Type 2 diabetes mellitus with hyperglycemia[ICD10: E11.65] Diagnosis: Essential (primary) hypertension[ICD10: I10] Diagnosis: Major depressive disorder, recurrent, in partial remission[ICD10: F33.41] Maude Man MD, [facility] CPT-4: 97396 09/18/2017 ([id number]) 33128 EST. P ATIENT, LEVEL IV Diagnosis: Pouchitis[ICD10: K91.850] Diagnosis: Other fatigue[ICD10: R53.83] Diagnosis: Type 2 diabetes mellitus with hyperglycemia[ICD10: E11.65] Diagnosis: Essential (primary) hypertension[ICD10: I10] Diagnosis: Orthostatic hypotension[ICD10: I95.1] Maude Man MD, [facility] CPT-4: 94317 08/23/2017 ([id number]) Miscellaneou s no charge Diagnosis: Type 2 diabetes mellitus with hyperglycemia[ICD10: E11.65] Shae Man MD, [facility] CPT-4: 25339 06/25/2017 ([id number]) 28080 EST. P ATIENT, LEVEL IV Diagnosis: Type 2 diabetes mellitus with hyperglycemia[ICD10: E11.65] Maude Man MD, [facility] CPT-4: 37752 06/11/2017 ([id number]) 40607 EST. P ATIENT, LEVEL IV Diagnosis: Type 2 diabetes mellitus with hyperglycemia[ICD10: E11.65] Diagnosis: Essential (primary) hypertension[ICD10: I10] Diagnosis: Acute recurrent maxillary sinusitis[ICD10: J01.01] Ana Man MD, [facility] CPT-4: 11122 06/04/2017 OFFICE VISIT, NEW - LEVEL 4 Diagnosis: Left lower quadrant pain[ICD10: R10.32] Diagnosis: Other ulcerative colitis with unspecified complications[ICD10: K51.819] Diagnosis: Essential (primary) hypertension[ICD10: I10] Diagnosis: Type 2 diabetes mellitus without complications[ICD10: E11.9] Diagnosis: Major depressive disorder, recurrent, in partial remission[ICD10: F33.41] Diagnosis: Mary[ICD10: K92.1] [facility] CPT-4: 86031 04/24/2017 Plan of Care Planned Activity Notes C odes Status Date Care Plan: CT HEAD/BRAIN W/O DYE LOINC : 56298-4 Pending 05/08/2018 Visit Plan: Abdominal pain -UA [...] adequate hydration 05/06/2018 [phone] [place] (15 min) Moderate 05/06/2018 Patient Education: [...] glucose control. 04/30/2018 App[facility]ment[phone] (30 min) Complex 04/30/2018 Patient Education: [...] worse 03/19/2018 Appointment: Ana Burrell WPtel: [phone] [phone] (30 min) Complex 03/19/2018 Patient Education: [...] appt 02/01/2018 Appointment: Ana Burrell WPtel: [phone] [phone] (30 min) Complex 02/01/2018 Patient Education: Patient Medication Summary Completed 02/01/2018 Patient Education: Back Pain Completed 02/01/2018 Patient Education: Hypertension Completed 02/01/2018 Appointment: Maude Man WPtel: [phone] [facility] (15 min) Moderate 01/24/2018 Referral: Megha Garcia [...] been made. 12/13/2017 [phone] ([facility] min) Moderate 12/13/2017 Patient Education: Patient Medication Summary Completed 12/13/2017 Patient Education: Diabetes Completed 12/13/2017 Patient Education: Hypertension Completed 12/13/2017 Care Plan: Referral Order SNOMED-CT : [id number] Pending 12/13/2017 App[facility]ment: [phone] [facility] (15 min) Moderate 11/26/2017 Visit Plan: Diabetes [...] through 09/18/2017 Appointment: [phone] [facility] (15 min) Moderate 09/18/2017 Patient Education: Patient Medication Summary Completed 09/18/2017 Referral: External, Ordering Provider Patient informed. Referral info faxed. Completed 09/17/2017 Appointment: Maude Man [phone] [facility] (15 min) Moderate 09/06/2017 Visit Plan: Pouchitis [...] Gracia. 08/23/2017 Appointment: [facility]ude [phone] [facility] (15 min) Moderate 08/23/2017 Patient Education: Patient Medication Summary Completed 08/23/2017 Care Plan: Comp Metabolic Cancelled 08/23/2017 Care Plan: Cbc With Differential Cancelled 08/23/2017 Care Plan: %Hba1C NATTY C : 59975-4 Cancelled 08/23/2017 Care Plan: Magnesium Cancelled 08/23/2017 Care Plan: Referral Order SNOMED-CT : [id number] Pending 08/23/2017 Appointment: Sanam [facility] [phone] [facility] [place] (15 min) Moderate 08/13/2017 Visit Plan: CGM removed - pt tolera jomar procedure well - no changes at this time. 06/25/2017 Patient Education: Patient Medication Summary Completed 06/25/2017 Appointment: [facility]ude [phone] [facility] [place] (15 min) Moderate 06/21/2017 Visit Plan: [...] glucose control. 06/20/2017 App[facility]ment: [phone] [facility] [place] (30 min) Complex 06/20/2017 Patient Education: Patient Medication Summary Completed 06/20/2017 Visit Plan: Diabetes Mellitus - [facility] ontrolled - per recent FSBS reports. [...] Completed 06/11/2017 Visit Plan: Diabetes Mellitus - [facility] ontrolled - per recent FSBS reports. [...] App[facility]: [phone] [facility] [place] (30 min) Complex 05/31/2017 App[facility]ment: [phone] [facility] [place] (30 min) Complex 05/29/2017 Appointment: Ana Burrell WPtel: [phone] (30 min) Complex 05/24/2017 Visit Plan: [...] current medications. 04/24/2017 Appointment: Ana Burrell WPtel: [phone] New Patient 04/24/2017 Patient Education: Patient Medication Summary Completed 04/24/2017 Appointment: Shae Guerrero WPtel: [facility] New Patient 04/20/2017 Referral: External, Ordering Provider Referral Appointment Requested Referral: Megha Garcia Referral Appointment Requested Instructions Comment . Weakness, gait ins tability, [...] resolve completely or of if any worse KUB LEFT SHOULDER, LEFT HIP AND LUMBAR [...]
--- OUTSIDE RECORDS SUMMARY | 2019-01-29 06:12 | XMS REPORT | CCD ---
Author Author Baylee Burrell Organization Maude Man MD, [facility] Address [address] [place] [address] Phone Care Team Providers Care Architect Name Role Phone PP Unavailable CCM Unavailable Summary Purpose Interface Exchange Insurance Providers Payer name Policy type / Coverage type Covered republican ID Effective Begin Date Effective End Date WPS Medicare Part B Blue Cross/Blue Shield [id number] Unknown Blue Cross Blue Shield [facility] [place] e Cross/Blue Shield [id number] Un known Blue Cross/Blue Shield [id number] Unknown Family history Sister Diagnosis Age At [...] 1 04/24/2017 Employment Unknown [employer] 04/24/[address]: 938468080 Never smoker 04/24/[address]: 832354155 Never drinks alcohol 04/24/2017 Allergies, Adverse Reactions, Alerts Substance Reaction Codes Entered Date Inactivated Date Status Levaquin RxNorm: 91459 04/24/2017 No Inactive Date Active Past Medical [...] E R 20 mEq tablet,extended release RxNorm: 327572 1 Tablet(s) PO daily 05/23/2018 05/25/2018 Active Lasix 40 mg tablet RxNorm: 295725 1 Tablet(s) PO daily 05/23/2018 05/25/2018 Active Keflex 500 mg capsule RxNorm: 859438 1 Capsule(s) PO TID 05/23/2018 05/29/2018 Active Zofran 4 mg tablet RxNorm: 642419 1 Tablet(s) PO Q6 PRN 05/06/2018 No Stop Date Active tramadol 50 mg tablet RxNorm: 518692 1 Tablet(s) PO Q6 PRN 05/06/2018 No Stop Date Active Basaglar KwikPen U-1 00 Insulin 100 unit/mL (3 mL) subcutaneous RxNorm: 7388458 46 Unit(s) SQ daily 05/03/2018 11/28/2018 Active qty sufficient for 1 month doxycycline hyclate 100 mg tablet RxNorm: 3134774 1 Tablet(s) PO BID 03/19/2018 03/25/2018 Inactive mupirocin 2 % topica l ointment RxNorm: 605688 1 Application TOP BID 03/19/2018 03/28/2018 Inactive Basaglar KwikPen U-1 00 Insulin 100 unit/mL (3 mL) subcutaneous RxNorm: 2166262 45 Unit(s) SQ daily 03/06/2018 05/02/2018 Inactive Basaglar KwikPen U-1 00 Insulin 100 unit/mL (3 mL) subcutaneous RxNorm: 5658274 45 Unit(s) SQ daily 03/06/2018 03/05/2018 Inactive Toujeo SoloStar U-30 0 Insulin 300 unit/mL (1.5 mL) subcutaneous pen RxNorm: 2763006 Unit(s) INJECT 45 UNITS UNDER THE SKIN DAILY 02/22/2018 03/05/2018 Inactive 30 d ay supply Toujeo SoloStar U-30 0 Insulin 300 unit/mL (1.5 mL) subcutaneous pen RxNorm: 1189034 INJECT 40 UNITS UNDER THE SKIN DAILY 02/21/2018 02/21/2018 Inactive Keflex 500 mg capsule RxNorm: 983551 1 Capsule(s) PO TID 02/01/2018 02/07/2018 Inactive Toujeo SoloStar U-30 0 Insulin 300 unit/mL (1.5 mL) subcutaneous pen RxNorm: 9651081 45 Unit(s) SQ daily 12/26/2017 No Stop Date Active atorvastatin 40 mg t ablet RxNorm: 294197 Tablet(s) TAKE ONE-REA LF TABLET BY MOUTH EVERY EVENING 12/26/2017 No Stop Date Active Restasis 0.05 % eye drops in a dropperette RxNorm: 835633 INSTILL ONE DROP IN E ACH EYE EVERY 12 HOURS 12/24/2017 04/22/2018 Inactive atorvastatin 40 mg t ablet RxNorm: 822477 TAKE ONE TABLET BY MO UTH EVERY EVENING 12/17/2017 12/25/2017 In active venlafaxine ER 150 m g tablet,extended release 24 hr RxNorm: 069700 TAKE ONE CAPSULE BY MOUTH DAILY 10/11/2017 07/07/2018 Active metoprolol succinate ER 50 mg tablet,extended release 24 hr RxNorm: 561589 TAKE ONE TABLET BY MOUTH DAILY 10/11/2017 07/07/2018 Active atorvastatin 40 mg t ablet RxNorm: 917830 TAKE ONE TABLET BY [facility] EVERY EVENING 10/11/2017 12/16/2017 In active metoprolol succinate ER 25 mg tablet,extended release 24 hr RxNorm: 552643 1/2 Tablet(s) PO daily 09/18/2017 03/16/2018 Inactive metronidazole 500 mg tablet RxNorm: 713740 1 Tablet(s) PO TID 08/23/2017 09/01/2017 Inactive Diflucan 150 mg tablet RxNorm: 427449 1 Tablet(s) PO daily 08/23/2017 09/01/2017 Inactive atorvastatin 40 mg t ablet RxNorm: 136941 1 Tablet(s) PO QPM 08/02/2017 10/10/2017 Inactive Toujeo SoloStar U-30 0 Insulin 300 unit/mL (1.5 mL) subcutaneous pen RxNorm: 4731226 40 Unit(s) SQ daily 07/30/2017 12/25/2017 Inactive Novofine 32 32 gauge x 1/4" needle RxNorm: USE TO TEST BLOOD SUGAR ONC E DAILY 07/26/2017 04/16/2019 Ac tive Toujeo SoloStar U-30 0 Insulin 300 unit/mL (1.5 mL) subcutaneous pen RxNorm: 9308143 INJECT 24 UNITS UNDER THE SKIN EVERY EVENING 07/26/2017 07/29/2017 Inactive Apidra U-100 Insulin 100 unit/mL subcutaneous solution RxNorm: 710847 5 Unit(s) SQ AC 06/06/2017 06/06/2017 Inactive start with 5 units with breakfast -call with blood sugars in 1 week Keflex 500 mg capsule RxNorm: 622910 1 Capsule(s) PO TID 06/04/2017 06/10/2017 Inactive Apidra U-100 Insulin 100 unit/mL subcutaneous solution RxNorm: 523857 5 Unit(s) SQ AC 06/04/2017 06/05/2017 Inactive start with 5 units with breakfast -call with blood sugars in 1 week Restasis 0.05 % eye drops in a dropperette RxNorm: 785839 1 gtts ophthalmic (ey e) Q12H 06/04/2017 07/03/2017 Inactive Toujeo SoloStar U-30 0 Insulin 300 unit/mL (1.5 mL) subcutaneous pen RxNorm: 3419146 28 Unit(s) SQ QPM x1 week, then 32 units daily. 04/26/2017 08/28/2017 Inactive Restasis MultiDose 0 .05 % eye drops RxNorm: 924915 1 Drop(s) ophthalmic (eye) daily - BID 04/24/2017 No Stop Date Active cyanocobalamin (vit B-12) 1,000 mcg/mL injection solution RxNorm: 257115 1 Milliliter(s) Inj QW -BIW 04/24/2017 07/22/2017 Inactive disp with syringes please Toujeo SoloStar U-30 0 Insulin 300 unit/mL (1.5 mL) subcutaneous pen RxNorm: 6283406 24 Unit(s) SQ QPM 04/24/2017 04/23/2017 Inactive Novofine 32 32 gauge x 1/4" needle RxNorm: 1 test Miscellaneous daily 04/24/2017 07/22/2017 In active E11.65 use with westley venlafaxine ER 150 m g tablet,extended release 24 hr RxNorm: 038479 1 Tablet(s) PO daily 04/24/2017 10/10/2017 Inactive cyanocobalamin (vit B-12) 1,000 mcg/mL injection solution RxNorm: 264985 1 Milliliter(s) Inj QW -BIW 04/24/2017 04/23/2017 Inactive metoprolol succinate ER 50 mg tablet,extended release 24 hr RxNorm: 591838 1 Tablet(s) PO daily 04/24/2017 09/17/2017 Inactive Toujeo SoloStar U-30 0 Insulin 300 unit/mL (1.5 mL) subcutaneous pen RxNorm: 5662963 24 Unit(s) SQ QPM 04/24/2017 04/25/2017 Inactive Centrum Silver tablet RxNorm: 1 Tablet(s) PO daily No Start Date Active Novolog U-100 Insuli n aspart 100 unit/mL subcutaneous solution RxNorm: 426371 5 Unit(s) SQ AC No Start Date Active magnesium 250 mg tablet RxNorm: 1 Tablet(s) PO as needed No Start Date Active Probiotic Blend oral RxNorm: 779159 oral No Start Date Active Calcium 600 + D(3) 6 00 mg (1,500 mg)-400 unit tablet RxNorm: 913457 1 Tablet(s) PO as needed No Start Date Active atorvastatin 40 mg t ablet RxNorm: 499854 1 Tablet(s) PO QPM No Start Date 08/01/2017 Inactive Novofine 32 32 gauge x 1/4" needle RxNorm: 1 Miscellaneous daily No Start Date 04/23/2017 Inactive cyanocobalamin (vit B-12) 1,000 mcg/mL injection solution RxNorm: 438712 1 Milliliter(s) Inj No Start Date 04/23/2017 Inactive metoprolol succinate ER 50 mg tablet,extended release 24 hr RxNorm: 135518 1 Tablet(s) PO daily No Start Date 04/23/2017 Inactive lisinopril 5 mg tablet RxNorm: 680462 1 Tablet(s) PO QPM No Start Date 04/23/2017 Inactive Restasis MultiDose 0 .05 % eye drops RxNorm: 275350 Drop(s) ophthalmic (e ye) No Start Date 04/23/2017 Inactive venlafaxine ER 150 m g capsule,extended release 24 hr RxNorm: 968287 1 Capsule(s) PO daily No Start Date [...] Code Item Item Code Result Date Lipase Qqe660 LIPASE 26 U/L 05/06/2018 Comp Metabolic Mby724 NA 140 mEq/L 05/06/2018 Comp Metabolic Now440 K 4.5 mEq/L 05/06/2018 Comp Metabolic Dib460 CL 109 mEq/L 05/06/2018 Comp Metabolic Kca341 CO2 24.0 mEq/L 05/06/2018 Comp Metabolic Kdb469 AN ION GAP 12 05/06/2018 Comp Metabolic Vxw488 GL UCOSE 341 mg/dL 05/06/2018 Comp Metabolic Wmi910 Cr eat 1.6 mg/dL 05/06/2018 Comp Metabolic Ukf205 eG FR 34 ml/min/1.73m2 05/06 Comp Metabolic Lfk189 BUN 39 mg/dL 05/06/2018 Comp Metabolic Krh457 B/ C Ratio 24.7 Ratio 05/06/2018 Comp Metabolic Url929 CA LCIUM 9.1 mg/dL 05/06/2018 Comp Metabolic Wir690 AL K PHOS 61 U/L 05/06/2018 Comp Metabolic Ucf135 T(SGOT) 21 U/L 05/06/2018 Comp Metabolic Ndr542 AL T(SGPT) 28 U/L 05/06/2018 Comp Metabolic Kfc474 BI LI T 0.3 mg/dL 05/06/2018 Comp Metabolic Jbh550 AL BUMIN 3.8 g/dL 05/06/2018 Comp Metabolic Zfm849 TP RO 6.1 g/dL 05/06/2018 Comp Metabolic Sfx875 GL OB 2.4 g/dL 05/06/2018 Comp Metabolic Abk539 A/ G Ratio 1.6 Ratio 05/06/2018 Comp Metabolic Pgp029 Os mo 302 mOsmo 05/06/2018 Amylase Ord34 AMYLASE 48 U/L 05/06/2018 Lipid Ord30 CHOL 171 mg/dL 12/13/2017 Lipid Ord30 HDL 64.0 mg/dl 12/13/2017 Lipid Ord30 TRIG 89 mg/dL 12/13/2017 Lipid Ord30 LDL 89 mg/dL 12/13/2017 Lipid Ord30 C/HDL 2.7 Ratio 12/13/2017 Comp Metabolic Oyc428 NA 140 mEq/L 12/13/2017 Comp Metabolic Ihu256 K 4.4 mEq/L 12/13/2017 Comp Metabolic Ovf944 CL 107 mEq/L 12/13/2017 Comp Metabolic Wor837 CO2 23.0 mEq/L 12/13/2017 Comp Metabolic Deb411 AN ION GAP 14 12/13/2017 Comp Metabolic Ecx786 GL UCOSE 179 mg/dL 12/13/2017 Comp Metabolic Epe050 Cr eat 1.7 mg/dL 12/13/2017 Comp Metabolic Hms416 eG FR 31 ml/min/1.73m2 12/13 Comp Metabolic Sax034 BUN 40 mg/dL 12/13/2017 Comp Metabolic Hhe393 B/ C Ratio 23.3 Ratio 12/13/2017 Comp Metabolic Lrx833 CA LCIUM 10.3 mg/dL 12/13/2017 Comp Metabolic Pbp351 AL K PHOS 54 U/L 12/13/2017 Comp Metabolic Fog716 T(SGOT) 41 U/L 12/13/2017 Comp Metabolic Xlq107 AL T(SGPT) 44 U/L 12/13/2017 Comp Metabolic Vhz674 BI LI T 0.4 mg/dL 12/13/2017 Comp Metabolic Ytz834 AL BUMIN 4.9 g/dL 12/13/2017 Comp Metabolic Frj978 TP RO 7.7 g/dL 12/13/2017 Comp Metabolic Med489 GL OB 2.8 g/dL 12/13/2017 Comp Metabolic Jrq458 A/ G Ratio 1.8 Ratio 12/13/2017 Comp Metabolic Ajv269 Os mo 294 mOsmo 12/13/2017 Tsh Ord6 TSH (3rd IS) 2.56 uIU/mL 12/13/2017 %Hba1C Kxa405 % HbA1c 45163-7 9.6 % 12/13/2017 %Hba1C Kmp638 Gluc Ave 229 mg/dL 12/13/2017 Cbc With [...] 32.0 pg 12/13/2017 Cbc With Differential Ord2 [place]% 8.0 % 12/13/2017 Cbc With Differential Ord2 [...] 1.44 K/ul 12/13/2017 Cbc With Differential Ord2 [place] ABS# 0.5 K/ul 12/13/2017 Cbc With Differential Ord2 Eos ABS# 0.1 K/ul 12/13/2017 Cbc With Differential Ord2 Baso ABS# 0.0 K/ul 12/13/2017 %Hba1C Cds308 % HbA1c 23372-9 13.1 % 04/24/2017 %Hba1C Wul927 Gluc Ave 329 mg/dL 04/24/2017 Cbc With [...] 32.0 pg 04/24/2017 Cbc With Differential Ord2 [place]% 11.0 % 04/24/2017 Cbc With Differential Ord2 [...] 2.39 K/ul 04/24/2017 Cbc With Differential Ord2 [place] ABS# 0.8 K/ul 04/24/2017 Cbc With Differential Ord2 Eos ABS# 0.1 K/ul 04/24/2017 Cbc With Differential Ord2 Baso ABS# 0.0 K/ul 04/24/2017 Comp Metabolic Ydm892 NA 142 mEq/L 04/24/2017 Comp Metabolic Iei718 K 3.8 mEq/L 04/24/2017 Comp Metabolic Vlh609 CL 105 mEq/L 04/24/2017 Comp Metabolic Xyo999 CO2 27.0 mEq/L 04/24/2017 Comp Metabolic Fso002 AN ION GAP 14 04/24/2017 Comp Metabolic Mpj119 GL UCOSE 203 mg/dL 04/24/2017 Comp Metabolic Fhb183 Cr eat 1.9 mg/dL 04/24/2017 Comp Metabolic Rhq888 eG FR 28 ml/min/1.73m2 04/24 Comp Metabolic Eqg237 BUN 26 mg/dL 04/24/2017 Comp Metabolic Zoh262 B/ C Ratio 13.6 Ratio 04/24/2017 Comp Metabolic Euy817 CA LCIUM 9.9 mg/dL 04/24/2017 Comp Metabolic Bqv635 AL K PHOS 79 U/L 04/24/2017 Comp Metabolic Nsy427 T(SGOT) 25 U/L 04/24/2017 Comp Metabolic Slg981 AL T(SGPT) 36 U/L 04/24/2017 Comp Metabolic Qgb857 BI LI T 0.3 mg/dL 04/24/2017 Comp Metabolic Qkl525 AL BUMIN 4.5 g/dL 04/24/2017 Comp Metabolic Xhn229 TP RO 6.9 g/dL 04/24/2017 Comp Metabolic Bgg571 GL OB 2.5 g/dL 04/24/2017 Comp Metabolic Uyz416 A/ G Ratio 1.8 Ratio 04/24/2017 Comp Metabolic Ljz018 Os mo 294 mOsmo 04/24/2017 Review of [...] Date URINALYSIS NONAUTO W /O SCOPE CPT-4: 33057 05/06/2018 GLUC MONITOR CONT PH YS I&R CPT-4: 46278 09/18/2017 GLUCOSE MONITORING CONT CPT-4: 74180 06/20/2017 Vital Signs Date Vital 05/23/2018 Blood Pressure 1: 146/66 Code: 8480-6 BMI: 22.4 Code: 93479-7 Heart Rate 1: 85 bpm Height: 5'6" SpO2: 97% Weight: 139 lbs 05/06/2018 Blood Pressure 1: 128/86 Code: 8480-6 BMI: 20.8 Code: 30905-0 Heart Rate 1: 96 bpm Height: 5'6" SpO2: 96% Weight: 129 lbs 04/30/2018 Blood Pressure 1: 124/66 Code: 8480-6 Heart Rate 1: 87 bpm Height: 5'6" SpO2: 98% 03/19/2018 Blood Pressure 1: 142/84 Code: 8480-6 BMI: 20.5 Code: 45386-6 Heart Rate 1: 88 bpm Height: 5'6" SpO2: 98% Temperature: 36.6 (C ) / 97.9 (F) Weight: 129 lbs 02/01/2018 Blood Pressure 1: 110/52 Code: 8480-6 BMI: 19.9 Code: 60000-4 Height: 5'6" Weight: 125 lbs 12/13/2017 Blood Pressure 1: 140/80 Code: 8480-6 BMI: 19.9 Code: 79182-0 Heart Rate 1: 72 bpm Height: 5'6" SpO2: 95% Weight: 125 lbs 09/18/2017 Blood Pressure 1: 126/82 Code: 8480-6 BMI: 20.0 Code: 59040-6 Heart Rate 1: 103 bpm Height: 5'6" SpO2: 98% Weight: 126 lbs 08/23/2017 Blood Pressure 1: 118/62 Code: 8480-6 Heart Rate 1: 110 bpm Height: 5'6" SpO2: 95% Temperature: 37.1 (C ) / 98.7 (F) 06/20/2017 Heigh t: Weight: 06/11/2017 Blood Pressure 1: 142/76 Code: 8480-6 BMI: 21.3 Code: 72803-7 Heart Rate 1: 102 bpm Height: 5'6" SpO2: 97% Weight: 134 lbs 06/04/2017 Blood Pressure 1: 160/84 Code: 8480-6 BMI: 20.8 Code: 96279-6 Heart Rate 1: 87 bpm Height: 5'6" SpO2: 97% Weight: 131 lbs 04/24/2017 Blood Pressure 1: 132/80 Code: 8480-6 BMI: 20.8 Code: 33233-3 Heart Rate 1: 84 bpm Height: 5'6" [...] edema[ICD10: R60.0] [facility] CPT-4: 49460 05/23/2018 ([id number]) 04395 EST. P ATIENT, LEVEL IV Diagnosis: Low back pain[ICD10: M54.5] Diagnosis: Left upper quadrant pain[ICD10: R10.12] Diagnosis: Pain in left hip[ICD10: M25.552] Diagnosis: Pain in left shoulder[ICD10: M25.512] Diagnosis: Repeated falls[ICD10: R29.6] Diagnosis: Unsteadiness on feet[ICD10: R26.81] Diagnosis: Chronic kidney disease, stage 3 (moderate)[ICD10: N18.3] [facility] CPT-4: 97658 05/06/2018 [id number] EST. PATIENT, LEVEL III Diagnosis: Low back pain[ICD10: M54.5] Diagnosis: Pain in left hip[ICD10: M25.552] Diagnosis: Repeated falls[ICD10: R29.6] Diagnosis: Unsteadiness on feet[ICD10: R26.81] Diagnosis: Headache[ICD10: R51] Diagnosis: Type 2 diabetes mellitus with hyperglycemia[ICD10: E11.65] [facility] CPT-4: 97562 04/30/2018 ([id number]) 97457 EST. P ATIENT, LEVEL III Diagnosis: Acute recurrent maxillary sinusitis[ICD10: J01.01] Diagnosis: Rash and other nonspecific skin eruption[ICD10: R21] Ana Man MD, [facility] CPT-4: 06643 03/19/2018 ([id number]) 40341 EST. P ATIENT, LEVEL IV Diagnosis: Acute recurrent maxillary sinusitis[ICD10: J01.01] Diagnosis: Low back pain[ICD10: M54.5] Diagnosis: Unsteadiness on feet[ICD10: R26.81] Diagnosis: Essential (primary) hypertension[ICD10: I10] Ana Man MD, [facility] CPT-4: 89795 02/01/2018 ([id number]) 15149 EST. P ATIENT, LEVEL IV Diagnosis: Type 2 diabetes mellitus with hyperglycemia[ICD10: E11.65] Diagnosis: Essential (primary) hypertension[ICD10: I10] Diagnosis: Other fatigue[ICD10: R53.83] Maude Man MD, [facility] CPT-4: 94473 12/13/2017 ([id number]) 07261 EST. P ATIENT, LEVEL IV Diagnosis: Type 2 diabetes mellitus with hyperglycemia[ICD10: E11.65] Diagnosis: Essential (primary) hypertension[ICD10: I10] Diagnosis: Major depressive disorder, recurrent, in partial remission[ICD10: F33.41] Maude Man MD, [facility] CPT-4: 28218 09/18/2017 ([id number]) 61464 EST. P ATIENT, LEVEL IV Diagnosis: Pouchitis[ICD10: K91.850] Diagnosis: Other fatigue[ICD10: R53.83] Diagnosis: Type 2 diabetes mellitus with hyperglycemia[ICD10: E11.65] Diagnosis: Essential (primary) hypertension[ICD10: I10] Diagnosis: Orthostatic hypotension[ICD10: I95.1] Maude Man MD, [facility] CPT-4: 93910 08/23/2017 ([id number]) Miscellaneou s no charge Diagnosis: Type 2 diabetes mellitus with hyperglycemia[ICD10: E11.65] Shae Man MD, [facility] CPT-4: 38913 06/25/2017 ([id number]) 20335 EST. P ATIENT, LEVEL IV Diagnosis: Type 2 diabetes mellitus with hyperglycemia[ICD10: E11.65] Maude Man MD, [facility] CPT-4: 70995 06/11/2017 ([id number]) 61892 EST. P ATIENT, LEVEL IV Diagnosis: Type 2 diabetes mellitus with hyperglycemia[ICD10: E11.65] Diagnosis: Essential (primary) hypertension[ICD10: I10] Diagnosis: Acute recurrent maxillary sinusitis[ICD10: J01.01] Ana Man MD, [facility] CPT-4: 72519 06/04/2017 OFFICE VISIT, NEW - LEVEL 4 Diagnosis: Left lower quadrant pain[ICD10: R10.32] Diagnosis: Other ulcerative colitis with unspecified complications[ICD10: K51.819] Diagnosis: Essential (primary) hypertension[ICD10: I10] Diagnosis: Type 2 diabetes mellitus without complications[ICD10: E11.9] Diagnosis: Major depressive disorder, recurrent, in partial remission[ICD10: F33.41] Diagnosis: Melena[ICD10: K92.1] Ana Man MD, [facility] CPT-4: 66742 04/24/2017 Plan of Care Planned Activity Notes C odes Status Date Care Plan: Referral Order SNOMED-CT : [id number] Pending 05/24/2018 Visit Plan: Diabetes Mellitus - [...] not improve. 05/23/2018 Appointment: Shae Guerrero WPtel: [phone] (30 min) Complex 05/23/2018 Patient Education: Patient Medication Summary Completed 05/23/2018 Patient Education: Diabetes Completed 05/23/2018 Care Plan: Urine Culture Pending 05/23/2018 Appointment: Ana Burrell WPtel: [phone] (30 min) Complex 05/20/2018 Care Plan: CT HEAD/BRAIN W/O DYE LOINC : 13954-4 Pending 05/08/2018 Visit Plan: Abdominal pain -UA [...] adequate hydration 05/06/2018 Appointment: Ana Burrell WPtel: [phone] (15 min) Moderate 05/06/2018 Patient Education: [...] glucose control. 04/30/2018 Appointment: Shae Guerrero WPtel: [facility] (30 min) Complex 04/30/2018 Patient Education: [...] any worse 03/19/2018 Appointment: Ana Burrell WPtel: [phone] (30 min) Complex 03/19/2018 Patient [...] next appt 02/01/2018 Appointment: Ana Burrell WPtel: [phone] (30 min) Complex 02/01/2018 Patient Education: Patient Medication Summary Completed 02/01/2018 Patient Education: Back Pain Completed 02/01/2018 Patient Education: Hypertension Completed 02/01/2018 Appointment: Maude Man WPtel: [facility] (15 min) Moderate 01/24/2018 Referral: Megha [...] been made. 12/13/2017 App[facility]ment: [phone] ([facility] min) Moderate 12/13/2017 Patient Education: Patient Medication Summary Completed 12/13/2017 Patient Education: Diabetes Completed 12/13/2017 Patient Education: Hypertension Completed 12/13/2017 Care Plan: Referral Order SNOMED-CT : [id number] Pending 12/13/2017 Appointment: [facility]ude Man [facility]Ptel[id number] (15 min) Moderate 11/26/2017 Visit Plan: Diabetes [...] followed through 09/18/2017 Appointment: Maude Man WPtel: [id number] [place] [employer] [place] (15 min) Moderate 09/18/2017 Patient Education: Patient Medication Summary Completed 09/18/2017 Referral: External, Ordering Provider Patient informed. Referral info faxed. Completed 09/17/2017 Appointment: Maude Man WPtel: [facility] [place] (15 min) Moderate 09/06/2017 Visit Plan: [...] Dr. Gracia. 08/23/2017 Appointment: Maude Man [facility]Ptel[phone] [facility] [place] (15 min) Moderate 08/23/2017 Patient Education: Patient Medication Summary Completed 08/23/2017 Care Plan: Comp Metabolic Cancelled 08/23/2017 Care Plan: Cbc With Differential Cancelled 08/23/2017 Care Plan: %Hba1C NATTY C : 33308-7 Cancelled 08/23/2017 Care Plan: Magnesium Cancelled 08/23/2017 Care Plan: Referral Order SNOMED-CT : [id number] Pending 08/23/2017 Appointment: [facility]ude Man [facility]Ptel[id number] [place] (15 min) Moderate 08/13/2017 Visit Plan: CGM removed - pt tolera jomar procedure well - no changes at this time. 06/25/2017 Patient Education: Patient Medication Summary Completed 06/25/2017 Appointment: [facility]ude [facility]el[phone] [place] (15 min) Moderate 06/21/2017 Visit Plan: [...] glucose control. 06/20/2017 Appointment: Shae Guerrero WPtel: [address] [place], [place] [phone] (30 min) Complex 06/20/2017 Patient Education: Patient Medication Summary Completed 06/20/2017 Visit Plan: Diabetes Mellitus - [facility] - per recent FSBS reports. I [...] Summary Completed 06/04/2017 Appointment: Ana Burrell WPtel: [address] [place], [place] [phone] (30 min) Complex 05/31/2017 Appointment: Indra Ana WPtel: [address] [place], [place] [phone] (30 min) Complex 05/29/2017 Appointment: Indra Ana WPtel: [address] [place], [place] [phone] (30 min) Complex 05/24/2017 Visit Plan: Left [...] current medications. 04/24/2017 Appointment: Indra Ana WPtel: [address] [place], [place] [phone] [place] [address] New Patient 04/24/2017 Patient Education: Patient Medication Summary Completed 04/24/2017 Appointment: Shae Guerrero WPtel: [address] [place], [place] [phone] New Patient 04/20/2017 Referral: External, Ordering Provider [...]
--- OUTSIDE RECORDS SUMMARY | 2019-01-29 06:13 | XMS REPORT | CCD ---
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 Name Role Phone PP Unavailable CCM Unavailable Summary Purpose Interface Exchange Insurance Providers Payer name Policy type / Coverage type Covered alliance party ID Effective Begin Date Effective End Date WPS Medicare Part B Blue Cross/Blue Shield [id number] Unknown Blue Cross Blue Shield [facility] [place] e Cross/Blue Shield [id number] Un known Blue Cross/Blue Shield [id number] Unknown Family history Sister Diagnosis Age At [...] 1 04/24/2017 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/[address]: 724175590 Never smoker 04/24/[address]: 142859666 Never drinks alcohol 04/24/2017 Allergies, Adverse Reactions, Alerts Substance Reaction Codes Entered Date Inactivated Date Status Levaquin RxNorm: 98731 04/24/2017 No Inactive Date Active Past Medical [...] Fill Instructions Zofran 4 mg tablet RxNorm: 700065 1 Tablet(s) PO Q6 PRN 05/06/2018 No Stop Date Active tramadol 50 mg tablet RxNorm: 015032 1 Tablet(s) PO Q6 PRN 05/06/2018 No Stop Date Active Basaglar KwikPen U-1 00 Insulin 100 unit/mL (3 mL) subcutaneous RxNorm: 9772570 46 Unit(s) SQ daily 05/03/2018 11/28/2018 Active qty sufficient for 1 month doxycycline hyclate 100 mg tablet RxNorm: 4042494 1 Tablet(s) PO BID 03/19/2018 03/25/2018 Inactive mupirocin 2 % topica l ointment RxNorm: 879962 1 Application TOP BID 03/19/2018 03/28/2018 Inactive Basaglar KwikPen U-1 00 Insulin 100 unit/mL (3 mL) subcutaneous RxNorm: 8714148 45 Unit(s) SQ daily 03/06/2018 05/02/2018 Inactive Basaglar KwikPen U-1 00 Insulin 100 unit/mL (3 mL) subcutaneous RxNorm: 8814179 45 Unit(s) SQ daily 03/06/2018 03/05/2018 Inactive Toudaphneo SoloStar U-30 0 Insulin 300 unit/mL (1.5 mL) subcutaneous pen RxNorm: 5296801 Unit(s) INJECT 45 UNITS UNDER THE SKIN DAILY 02/22/2018 03/05/2018 Inactive 30 d ay supply Toujeo SoloStar U-30 0 Insulin 300 unit/mL (1.5 mL) subcutaneous pen RxNorm: 9013675 INJECT 40 UNITS UNDER THE SKIN DAILY 02/21/2018 02/21/2018 Inactive Keflex 500 mg capsule RxNorm: 651999 1 Capsule(s) PO TID 02/01/2018 02/07/2018 Inactive Toujeo SoloStar U-30 0 Insulin 300 unit/mL (1.5 mL) subcutaneous pen RxNorm: 9790565 45 Unit(s) SQ daily 12/26/2017 No Stop Date Active atorvastatin 40 mg t ablet RxNorm: 743171 Tablet(s) TAKE ONE-REA LF TABLET BY MOUTH EVERY EVENING 12/26/2017 No Stop Date Active Restasis 0.05 % eye drops in a dropperette RxNorm: 814511 INSTILL ONE DROP IN E ACH EYE EVERY 12 HOURS 12/24/2017 04/22/2018 Inactive atorvastatin 40 mg t ablet RxNorm: 156481 TAKE ONE TABLET BY MO UT EVERY EVENING 12/17/2017 12/25/2017 In active venlafaxine ER 150 m g tablet,extended release 24 hr RxNorm: 386918 TAKE ONE CAPSULE BY MOUTH DAILY 10/11/2017 07/07/2018 Active metoprolol succinate ER 50 mg tablet,extended release 24 hr RxNorm: 208356 TAKE ONE TABLET BY MOUTH DAILY 10/11/2017 07/07/2018 Active atorvastatin 40 mg t ablet RxNorm: 877298 TAKE ONE TABLET BY MO UT EVERY EVENING 10/11/2017 12/16/2017 In active metoprolol succinate ER 25 mg tablet,extended release 24 hr RxNorm: 692810 1/2 Tablet(s) PO daily 09/18/2017 03/16/2018 Inactive metronidazole 500 mg tablet RxNorm: 409034 1 Tablet(s) PO TID 08/23/2017 09/01/2017 Inactive Diflucan 150 mg tablet RxNorm: 201730 1 Tablet(s) PO daily 08/23/2017 09/01/2017 Inactive atorvastatin 40 mg t ablet RxNorm: 110758 1 Tablet(s) PO QPM 08/02/2017 10/10/2017 Inactive Toujeo SoloStar U-30 0 Insulin 300 unit/mL (1.5 mL) subcutaneous pen RxNorm: 9220049 40 Unit(s) SQ daily 07/30/2017 12/25/2017 Inactive Novofine 32 32 gauge x 1/4" needle RxNorm: USE TO TEST BLOOD SUGAR ONC E DAILY 07/26/2017 04/16/2019 Ac tive Toujeo SoloStar U-30 0 Insulin 300 unit/mL (1.5 mL) subcutaneous pen RxNorm: 7965873 INJECT 24 UNITS UNDER THE SKIN EVERY EVENING 07/26/2017 07/29/2017 Inactive Apidra U-100 Insulin 100 unit/mL subcutaneous solution RxNorm: 832547 5 Unit(s) SQ AC 06/06/2017 06/06/2017 Inactive start with 5 units with breakfast -call with blood sugars in 1 week Keflex 500 mg capsule RxNorm: 434358 1 Capsule(s) PO TID 06/04/2017 06/10/2017 Inactive Apidra U-100 Insulin 100 unit/mL subcutaneous solution RxNorm: 356547 5 Unit(s) SQ AC 06/04/2017 06/05/2017 Inactive start with 5 units with breakfast -call with blood sugars in 1 week Restasis 0.05 % eye drops in a dropperette RxNorm: 923546 1 gtts ophthalmic (ey e) Q12H 06/04/2017 07/03/2017 Inactive Toujeo SoloStar U-30 0 Insulin 300 unit/mL (1.5 mL) subcutaneous pen RxNorm: 6247838 28 Unit(s) SQ QPM x1 week, then 32 units daily. 04/26/2017 08/28/2017 Inactive Restasis MultiDose 0 .05 % eye drops RxNorm: 867375 1 Drop(s) ophthalmic (eye) daily - BID 04/24/2017 No Stop Date Active cyanocobalamin (vit B-12) 1,000 mcg/mL injection solution RxNorm: 115170 1 Milliliter(s) Inj QW -BIW 04/24/2017 07/22/2017 Inactive disp with syringes please Toujeo SoloStar U-30 0 Insulin 300 unit/mL (1.5 mL) subcutaneous pen RxNorm: 4686440 24 Unit(s) SQ QPM 04/24/2017 04/23/2017 Inactive Novofine 32 32 gauge x 1/4" needle RxNorm: 1 test Miscellaneous daily 04/24/2017 07/22/2017 In active E11.65 use with toudov venlafaxine ER 150 m g tablet,extended release 24 hr RxNorm: 414835 1 Tablet(s) PO daily 04/24/2017 10/10/2017 Inactive cyanocobalamin (vit B-12) 1,000 mcg/mL injection solution RxNorm: 302323 1 Milliliter(s) Inj QW -BIW 04/24/2017 04/23/2017 Inactive metoprolol succinate ER 50 mg tablet,extended release 24 hr RxNorm: 453267 1 Tablet(s) PO daily 04/24/2017 09/17/2017 Inactive Toudov SoloStar U-30 0 Insulin 300 unit/mL (1.5 mL) subcutaneous pen RxNorm: 2187097 24 Unit(s) SQ QPM 04/24/2017 04/25/2017 Inactive Centrum Silver tablet RxNorm: 1 Tablet(s) PO daily No Start Date Active Novolog U-100 Insuli n aspart 100 unit/mL subcutaneous solution RxNorm: 242143 5 Unit(s) SQ AC No Start Date Active magnesium 250 mg tablet RxNorm: 1 Tablet(s) PO as needed No Start Date Active Probiotic Blend oral RxNorm: 872544 oral No Start Date Active Calcium 600 + D(3) 6 00 mg (1,500 mg)-400 unit tablet RxNorm: 065156 1 Tablet(s) PO as needed No Start Date Active atorvastatin 40 mg t ablet RxNorm: 269823 1 Tablet(s) PO QPM No Start Date 08/01/2017 Inactive Novofine 32 32 gauge x 1/4" needle RxNorm: 1 Miscellaneous daily No Start Date 04/23/2017 Inactive cyanocobalamin (vit B-12) 1,000 mcg/mL injection solution RxNorm: 654610 1 Milliliter(s) Inj No Start Date 04/23/2017 Inactive metoprolol succinate ER 50 mg tablet,extended release 24 hr RxNorm: 003943 1 Tablet(s) PO daily No Start Date 04/23/2017 Inactive lisinopril 5 mg tablet RxNorm: 890545 1 Tablet(s) PO QPM No Start Date 04/23/2017 Inactive Restasis MultiDose 0 .05 % eye drops RxNorm: 289621 Drop(s) ophthalmic (e ye) No Start Date 04/23/2017 Inactive venlafaxine ER 150 m g capsule,extended release 24 hr RxNorm: 950682 1 Capsule(s) PO daily No Start Date [...] Code Item Item Code Result Date Lipase Jyo330 LIPASE 26 U/L 05/06/2018 Comp Metabolic Aws494 NA 140 mEq/L 05/06/2018 Comp Metabolic Cuc412 K 4.5 mEq/L 05/06/2018 Comp Metabolic Cpn080 CL 109 mEq/L 05/06/2018 Comp Metabolic Oor689 CO2 24.0 mEq/L 05/06/2018 Comp Metabolic Bck869 AN ION GAP 12 05/06/2018 Comp Metabolic Ijt636 GL UCOSE 341 mg/dL 05/06/2018 Comp Metabolic Npv779 Cr eat 1.6 mg/dL 05/06/2018 Comp Metabolic Mat499 eG FR 34 ml/min/1.73m2 05/06 Comp Metabolic Qyq905 BUN 39 mg/dL 05/06/2018 Comp Metabolic Ipe955 B/ C Ratio 24.7 Ratio 05/06/2018 Comp Metabolic Utv289 CA LCIUM 9.1 mg/dL 05/06/2018 Comp Metabolic Lup130 AL K PHOS 61 U/L 05/06/2018 Comp Metabolic Aha608 T(SGOT) 21 U/L 05/06/2018 Comp Metabolic Hck446 AL T(SGPT) 28 U/L 05/06/2018 Comp Metabolic Sqs580 BI LI T 0.3 mg/dL 05/06/2018 Comp Metabolic Klp581 AL BUMIN 3.8 g/dL 05/06/2018 Comp Metabolic Txt051 TP RO 6.1 g/dL 05/06/2018 Comp Metabolic Ofa376 GL OB 2.4 g/dL 05/06/2018 Comp Metabolic Swt960 A/ G Ratio 1.6 Ratio 05/06/2018 Comp Metabolic Vrl576 Os mo 302 mOsmo 05/06/2018 Amylase Ord34 AMYLASE 48 U/L 05/06/2018 Lipid Ord30 CHOL 171 mg/dL 12/13/2017 Lipid Ord30 HDL 64.0 mg/dl 12/13/2017 Lipid Ord30 TRIG 89 mg/dL 12/13/2017 Lipid Ord30 LDL 89 mg/dL 12/13/2017 Lipid Ord30 C/HDL 2.7 Ratio 12/13/2017 Comp Metabolic Qqm483 NA 140 mEq/L 12/13/2017 Comp Metabolic Odv824 K 4.4 mEq/L 12/13/2017 Comp Metabolic Wnx495 CL 107 mEq/L 12/13/2017 Comp Metabolic Bfe287 CO2 23.0 mEq/L 12/13/2017 Comp Metabolic Dhq396 AN ION GAP 14 12/13/2017 Comp Metabolic Dln176 GL UCOSE 179 mg/dL 12/13/2017 Comp Metabolic Zig160 Cr eat 1.7 mg/dL 12/13/2017 Comp Metabolic Ywa905 eG FR 31 ml/min/1.73m2 12/13 Comp Metabolic Wfg844 BUN 40 mg/dL 12/13/2017 Comp Metabolic Ftt792 B/ C Ratio 23.3 Ratio 12/13/2017 Comp Metabolic Vzp163 CA LCIUM 10.3 mg/dL 12/13/2017 Comp Metabolic Dax609 AL K PHOS 54 U/L 12/13/2017 Comp Metabolic Opl933 T(SGOT) 41 U/L 12/13/2017 Comp Metabolic Tua606 AL T(SGPT) 44 U/L 12/13/2017 Comp Metabolic Gqn286 BI LI T 0.4 mg/dL 12/13/2017 Comp Metabolic Aqw133 AL BUMIN 4.9 g/dL 12/13/2017 Comp Metabolic Pez881 TP RO 7.7 g/dL 12/13/2017 Comp Metabolic Bfe052 GL OB 2.8 g/dL 12/13/2017 Comp Metabolic Pld065 A/ G Ratio 1.8 Ratio 12/13/2017 Comp Metabolic Two048 Os mo 294 mOsmo 12/13/2017 Tsh Ord6 TSH (3rd IS) 2.56 uIU/mL 12/13/2017 %Hba1C Htv130 % HbA1c 32955-3 9.6 % 12/13/2017 %Hba1C Jvw683 Gluc Ave 229 mg/dL 12/13/2017 Cbc With [...] 32.0 pg 12/13/2017 Cbc With Differential Ord2 Wirt% 8.0 % 12/13/2017 Cbc With Differential Ord2 [...] 1.44 K/ul 12/13/2017 Cbc With Differential Ord2 Wirt ABS# 0.5 K/ul 12/13/2017 Cbc With Differential Ord2 Eos ABS# 0.1 K/ul 12/13/2017 Cbc With Differential Ord2 Baso ABS# 0.0 K/ul 12/13/2017 %Hba1C Skc490 % HbA1c 17243-1 13.1 % 04/24/2017 %Hba1C Tim772 Gluc Ave 329 mg/dL 04/24/2017 Cbc With [...] 32.0 pg 04/24/2017 Cbc With Differential Ord2 Wirt% 11.0 % 04/24/2017 Cbc With Differential Ord2 [...] 2.39 K/ul 04/24/2017 Cbc With Differential Ord2 Wirt ABS# 0.8 K/ul 04/24/2017 Cbc With Differential Ord2 Eos ABS# 0.1 K/ul 04/24/2017 Cbc With Differential Ord2 Baso ABS# 0.0 K/ul 04/24/2017 Comp Metabolic Ifo687 NA 142 mEq/L 04/24/2017 Comp Metabolic Wdp476 K 3.8 mEq/L 04/24/2017 Comp Metabolic Ihw550 CL 105 mEq/L 04/24/2017 Comp Metabolic Rnh435 CO2 27.0 mEq/L 04/24/2017 Comp Metabolic Rye970 AN ION GAP 14 04/24/2017 Comp Metabolic Izd800 GL UCOSE 203 mg/dL 04/24/2017 Comp Metabolic Zrq470 Cr eat 1.9 mg/dL 04/24/2017 Comp Metabolic Lav105 eG FR 28 ml/min/1.73m2 04/24 Comp Metabolic Ayc496 BUN 26 mg/dL 04/24/2017 Comp Metabolic Pko920 B/ C Ratio 13.6 Ratio 04/24/2017 Comp Metabolic Bme939 CA LCIUM 9.9 mg/dL 04/24/2017 Comp Metabolic Awn671 AL K PHOS 79 U/L 04/24/2017 Comp Metabolic Ios887 T(SGOT) 25 U/L 04/24/2017 Comp Metabolic Ssf495 AL T(SGPT) 36 U/L 04/24/2017 Comp Metabolic Wva795 BI LI T 0.3 mg/dL 04/24/2017 Comp Metabolic Nyo548 AL BUMIN 4.5 g/dL 04/24/2017 Comp Metabolic Oxt578 TP RO 6.9 g/dL 04/24/2017 Comp Metabolic Tzi573 GL OB 2.5 g/dL 04/24/2017 Comp Metabolic Fxd461 A/ G Ratio 1.8 Ratio 04/24/2017 Comp Metabolic Sdg116 Os mo 294 mOsmo 04/24/2017 Review of [...] Date URINALYSIS NONAUTO W /O SCOPE CPT-4: 17476 05/06/2018 GLUC MONITOR CONT PH YS I&R CPT-4: 11471 09/18/2017 GLUCOSE MONITORING CONT CPT-4: 82470 06/20/2017 Vital Signs Date Vital 05/06/2018 Blood Pressure 1: 128/86 Code: 8480-6 BMI: 20.8 Code: 50320-6 Heart Rate 1: 96 bpm Height: 5'6" SpO2: 96% Weight: 129 lbs 04/30/2018 Blood Pressure 1: 124/66 Code: 8480-6 Heart Rate 1: 87 bpm Height: 5'6" SpO2: 98% 03/19/2018 Blood Pressure 1: 142/84 Code: 8480-6 BMI: 20.5 Code: 93063-8 Heart Rate 1: 88 bpm Height: 5'6" SpO2: 98% Temperature: 36.6 (C ) / 97.9 (F) Weight: 129 lbs 02/01/2018 Blood Pressure 1: 110/52 Code: 8480-6 BMI: 19.9 Code: 60687-8 Height: 5'6" Weight: 125 lbs 12/13/2017 Blood Pressure 1: 140/80 Code: 8480-6 BMI: 19.9 Code: 27513-5 Heart Rate 1: 72 bpm Height: 5'6" SpO2: 95% Weight: 125 lbs 09/18/2017 Blood Pressure 1: 126/82 Code: 8480-6 BMI: 20.0 Code: 16321-4 Heart Rate 1: 103 bpm Height: 5'6" SpO2: 98% Weight: 126 lbs 08/23/2017 Blood Pressure 1: 118/62 Code: 8480-6 Heart Rate 1: 110 bpm Height: 5'6" SpO2: 95% Temperature: 37.1 (C ) / 98.7 (F) 06/20/2017 Heigh t: Weight: 06/11/2017 Blood Pressure 1: 142/76 Code: 8480-6 BMI: 21.3 Code: 95158-5 Heart Rate 1: 102 bpm Height: 5'6" SpO2: 97% Weight: 134 lbs 06/04/2017 Blood Pressure 1: 160/84 Code: 8480-6 BMI: 20.8 Code: 99416-4 Heart Rate 1: 87 bpm Height: 5'6" SpO2: 97% Weight: 131 lbs 04/24/2017 Blood Pressure 1: 132/80 Code: 8480-6 BMI: 20.8 Code: 47503-3 Heart Rate 1: 84 bpm Height: 5'6" [...] Encounters Encounter Performer Loca tion Codes Date ([id number]) 26522 EST. P ATIENT, LEVEL IV Diagnosis: Low back pain[ICD10: M54.5] Diagnosis: Left upper quadrant pain[ICD10: R10.12] Diagnosis: Pain in left hip[ICD10: M25.552] Diagnosis: Pain in left shoulder[ICD10: M25.512] Diagnosis: Repeated falls[ICD10: R29.6] Diagnosis: Unsteadiness on feet[ICD10: R26.81] Diagnosis: Chronic kidney disease, stage 3 (moderate)[ICD10: N18.3] Ana Man MD, [facility] CPT-4: 97150 05/06/2018 [id number] EST. PATIENT, LEVEL III Diagnosis: Low back pain[ICD10: M54.5] Diagnosis: Pain in left hip[ICD10: M25.552] Diagnosis: Repeated falls[ICD10: R29.6] Diagnosis: Unsteadiness on feet[ICD10: R26.81] Diagnosis: Headache[ICD10: R51] Diagnosis: Type 2 diabetes mellitus with hyperglycemia[ICD10: E11.65] Shae Man MD, [facility] CPT-4: 91701 04/30/2018 ([id number]) 53105 EST. P ATIENT, LEVEL III Diagnosis: Acute recurrent maxillary sinusitis[ICD10: J01.01] Diagnosis: Rash and other nonspecific skin eruption[ICD10: R21] Ana Man MD, [facility] CPT-4: 82194 03/19/2018 ([id number]) 36958 EST. P ATIENT, LEVEL IV Diagnosis: Acute recurrent maxillary sinusitis[ICD10: J01.01] Diagnosis: Low back pain[ICD10: M54.5] Diagnosis: Unsteadiness on feet[ICD10: R26.81] Diagnosis: Essential (primary) hypertension[ICD10: I10] Ana Man MD, [facility] CPT-4: 07874 02/01/2018 ([id number]) 25983 EST. P ATIENT, LEVEL IV Diagnosis: Type 2 diabetes mellitus with hyperglycemia[ICD10: E11.65] Diagnosis: Essential (primary) hypertension[ICD10: I10] Diagnosis: Other fatigue[ICD10: R53.83] Maude Man MD, [facility] CPT-4: 41143 12/13/2017 ([id number]) 92063 EST. 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 P ATIENT, LEVEL IV Diagnosis: Pouchitis[ICD10: K91.850] Diagnosis: Other fatigue[ICD10: R53.83] Diagnosis: Type 2 diabetes mellitus with hyperglycemia[ICD10: E11.65] Diagnosis: Essential (primary) hypertension[ICD10: I10] Diagnosis: Orthostatic hypotension[ICD10: I95.1] Maude Man MD, [facility] CPT-4: 12402 08/23/2017 ([id number]) Miscellaneou s no charge Diagnosis: Type 2 diabetes mellitus with hyperglycemia[ICD10: E11.65] Shae Man MD, [facility] CPT-4: 04392 06/25/2017 ([id number]) 94988 EST. P ATIENT, LEVEL IV Diagnosis: Type 2 diabetes mellitus with hyperglycemia[ICD10: E11.65] Maude Man MD, [facility] CPT-4: 06643 06/11/2017 ([id number]) 42941 EST. P ATIENT, LEVEL IV Diagnosis: Type 2 diabetes mellitus with hyperglycemia[ICD10: E11.65] Diagnosis: Essential (primary) hypertension[ICD10: I10] Diagnosis: Acute recurrent maxillary sinusitis[ICD10: J01.01] Ana Man MD, [facility] CPT-4: 70871 06/04/2017 OFFICE VISIT, NEW - LEVEL 4 Diagnosis: Left lower quadrant pain[ICD10: R10.32] Diagnosis: Other ulcerative colitis with unspecified complications[ICD10: K51.819] Diagnosis: Essential (primary) hypertension[ICD10: I10] Diagnosis: Type 2 diabetes mellitus without complications[ICD10: E11.9] Diagnosis: Major depressive disorder, recurrent, in partial remission[ICD10: F33.41] Diagnosis: Mary[ICD10: K92.1] [facility] CPT-4: 00388 04/24/2017 Plan of Care Planned Activity Notes C odes Status Date Care Plan: CT HEAD/BRAIN W/O DYE LOINC : 95614-8 Pending 05/08/2018 Visit Plan: Abdominal pain -UA [...] hydration 05/06/2018 [facility] [phone] [phone] [place] (15 min) Moderate 05/06/2018 Patient Education: [...] glucose control. 04/30/2018 App[facility]ment[facility] [phone] [facility] (30 min) Complex 04/30/2018 [...] worse 03/19/2018 Appointment: Ana Burrell WPtel: [phone] [phone] (30 min) Complex 03/19/2018 Patient Education: [...] appt 02/01/2018 Appointment: Ana Burrell WPtel: [phone] [phone] (30 min) Complex 02/01/2018 Patient Education: Patient Medication Summary Completed 02/01/2018 Patient Education: Back Pain Completed 02/01/2018 Patient Education: Hypertension Completed 02/01/2018 Appointment: Maude Man WPtel: [phone] [facility] (15 min) Moderate 01/24/2018 Referral: Megha Garcia [...] been made. 12/13/2017 [phone] [facility] (15 min) Moderate 12/13/2017 Patient Education: Patient Medication Summary Completed 12/13/2017 Patient Education: Diabetes Completed 12/13/2017 Patient Education: Hypertension Completed 12/13/2017 Care Plan: Referral Order SNOMED-CT : [id number] Pending 12/13/2017 [facility] [phone] [facility] (15 min) Moderate 11/26/2017 Visit Plan: Diabetes [...] through 09/18/2017 [facility] [phone] [facility] (15 min) Moderate 09/18/2017 Patient Education: Patient Medication Summary Completed 09/18/2017 Referral: External, Ordering Provider Patient informed. Referral info faxed. Completed 09/17/2017 App[facility]ment: [facility]ude [facility]el[facility] [phone] [facility] (15 min) Moderate 09/06/2017 Visit Plan: Pouchitis [...] Gracia. 08/23/2017 [facility]ment[facility] [phone] [facility] (15 min) Moderate 08/23/2017 Patient Education: Patient Medication Summary Completed 08/23/2017 Care Plan: Comp Metabolic Cancelled 08/23/2017 Care Plan: Cbc With Differential Cancelled 08/23/2017 Care Plan: %Hba1C NATTY C : 33489-7 Cancelled 08/23/2017 Care Plan: Magnesium Cancelled 08/23/2017 Care Plan: Referral Order SNOMED-CT : 561740461 Pending 08/23/2017 App[facility]ment: Sanam [facility] [phone] [facility] [place] (15 min) Moderate 08/13/2017 Visit Plan: CGM removed - pt tolera jomar procedure well - no changes at this time. 06/25/2017 Patient Education: Patient Medication Summary Completed 06/25/2017 App[facility]ment: [facility]el[facility] [phone] [facility] [place] (15 min) Moderate 06/21/2017 Visit Plan: [...] glucose control. 06/20/2017 [phone] [facility] [place] (30 min) Complex 06/20/2017 Patient Education: [...] Completed 06/11/2017 Visit Plan: Diabetes Mellitus - [place] [...] Completed 06/04/2017 Appointment: [facility] [phone] [phone] [place] (30 min) Complex 05/31/2017 App[facility]ment: [facility] [phone] [phone] [place] (30 min) Complex 05/29/2017 Appointment: Ana Burrell WPtel: [phone] (30 min) Complex 05/24/2017 Visit Plan: [...] 04/24/2017 Appointment: Ana Burrell WPtel: [phone] New Patient 04/24/2017 Patient Education: Patient Medication Summary Completed 04/24/2017 Appointment: Shae Guerrero WPtel: [facility] New Patient 04/20/2017 Referral: External, Ordering [...]
--- OUTSIDE RECORDS SUMMARY | 2019-01-29 06:13 | XMS REPORT | CCD ---
Author Author Baylee Burrell Organization Maude Man MD, [facility] Address [address] [place] [address] Phone Care Team Providers Care Warehouse Operator Name Role Phone PP Unavailable CCM Unavailable Summary Purpose Interface Exchange Insurance Providers Payer name Policy type / Coverage type Covered democrat ID Effective Begin Date Effective End Date WPS Medicare Part B Blue Cross/Blue Shield [id number] Unknown Blue Cross Blue Shield 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 04/24/[address]: 148940556 Never smoker 04/24/[address]: 078299520 Never drinks alcohol 04/24/2017 Allergies, Adverse Reactions, Alerts Substance Reaction Codes Entered Date Inactivated Date Status Levaquin RxNorm: 20479 04/24/2017 No Inactive Date Active Past Medical [...] Fill Instructions Zofran 4 mg tablet RxNorm: 014634 1 Tablet(s) PO Q6 PRN 05/06/2018 No Stop Date Active tramadol 50 mg tablet RxNorm: 510409 1 Tablet(s) PO Q6 PRN 05/06/2018 No Stop Date Active Basaglar KwikPen U-1 00 Insulin 100 unit/mL (3 mL) subcutaneous RxNorm: 0985854 46 Unit(s) SQ daily 05/03/2018 11/28/2018 Active qty sufficient for 1 month doxycycline hyclate 100 mg tablet RxNorm: 2378684 1 Tablet(s) PO BID 03/19/2018 03/25/2018 Inactive mupirocin 2 % topica l ointment RxNorm: 902348 1 Application TOP BID 03/19/2018 03/28/2018 Inactive Basaglar KwikPen U-1 00 Insulin 100 unit/mL (3 mL) subcutaneous RxNorm: 9516533 45 Unit(s) SQ daily 03/06/2018 05/02/2018 Inactive Basaglar KwikPen U-1 00 Insulin 100 unit/mL (3 mL) subcutaneous RxNorm: 5212628 45 Unit(s) SQ daily 03/06/2018 03/05/2018 Inactive Toudaphneo SoloStar U-30 0 Insulin 300 unit/mL (1.5 mL) subcutaneous pen RxNorm: 8885946 Unit(s) INJECT 45 UNITS UNDER THE SKIN DAILY 02/22/2018 03/05/2018 Inactive 30 d ay supply Toujeo SoloStar U-30 0 Insulin 300 unit/mL (1.5 mL) subcutaneous pen RxNorm: 1303989 INJECT 40 UNITS UNDER THE SKIN DAILY 02/21/2018 02/21/2018 Inactive Keflex 500 mg capsule RxNorm: 666377 1 Capsule(s) PO TID 02/01/2018 02/07/2018 Inactive Toujeo SoloStar U-30 0 Insulin 300 unit/mL (1.5 mL) subcutaneous pen RxNorm: 4317570 45 Unit(s) SQ daily 12/26/2017 No Stop Date Active atorvastatin 40 mg t ablet RxNorm: 093586 Tablet(s) TAKE ONE-REA LF TABLET BY MOUTH EVERY EVENING 12/26/2017 No Stop Date Active Restasis 0.05 % eye drops in a dropperette RxNorm: 733805 INSTILL ONE DROP IN E ACH EYE EVERY 12 HOURS 12/24/2017 04/22/2018 Inactive atorvastatin 40 mg t ablet RxNorm: 915615 TAKE ONE TABLET BY MO UT EVERY EVENING 12/17/2017 12/25/2017 In active venlafaxine ER 150 m g tablet,extended release 24 hr RxNorm: 881773 TAKE ONE CAPSULE BY MOUTH DAILY 10/11/2017 07/07/2018 Active metoprolol succinate ER 50 mg tablet,extended release 24 hr RxNorm: 902247 TAKE ONE TABLET BY MOUTH DAILY 10/11/2017 07/07/2018 Active atorvastatin 40 mg t ablet RxNorm: 580734 TAKE ONE TABLET BY MO UT EVERY EVENING 10/11/2017 12/16/2017 In active metoprolol succinate ER 25 mg tablet,extended release 24 hr RxNorm: 826916 1/2 Tablet(s) PO daily 09/18/2017 03/16/2018 Inactive metronidazole 500 mg tablet RxNorm: 380379 1 Tablet(s) PO TID 08/23/2017 09/01/2017 Inactive Diflucan 150 mg tablet RxNorm: 221618 1 Tablet(s) PO daily 08/23/2017 09/01/2017 Inactive atorvastatin 40 mg t ablet RxNorm: 162817 1 Tablet(s) PO QPM 08/02/2017 10/10/2017 Inactive Toujeo SoloStar U-30 0 Insulin 300 unit/mL (1.5 mL) subcutaneous pen RxNorm: 6009303 40 Unit(s) SQ daily 07/30/2017 12/25/2017 Inactive Novofine 32 32 gauge x 1/4" needle RxNorm: USE TO TEST BLOOD SUGAR ONC E DAILY 07/26/2017 04/16/2019 Ac tive Toujeo SoloStar U-30 0 Insulin 300 unit/mL (1.5 mL) subcutaneous pen RxNorm: 3251106 INJECT 24 UNITS UNDER THE SKIN EVERY EVENING 07/26/2017 07/29/2017 Inactive Apidra U-100 Insulin 100 unit/mL subcutaneous solution RxNorm: 456488 5 Unit(s) SQ AC 06/06/2017 06/06/2017 Inactive start with 5 units with breakfast -call with blood sugars in 1 week Keflex 500 mg capsule RxNorm: 858500 1 Capsule(s) PO TID 06/04/2017 06/10/2017 Inactive Apidra U-100 Insulin 100 unit/mL subcutaneous solution RxNorm: 915883 5 Unit(s) SQ AC 06/04/2017 06/05/2017 Inactive start with 5 units with breakfast -call with blood sugars in 1 week Restasis 0.05 % eye drops in a dropperette RxNorm: 703346 1 gtts ophthalmic (ey e) Q12H 06/04/2017 07/03/2017 Inactive Toujeo SoloStar U-30 0 Insulin 300 unit/mL (1.5 mL) subcutaneous pen RxNorm: 5505238 28 Unit(s) SQ QPM x1 week, then 32 units daily. 04/26/2017 08/28/2017 Inactive Restasis MultiDose 0 .05 % eye drops RxNorm: 313667 1 Drop(s) ophthalmic (eye) daily - BID 04/24/2017 No Stop Date Active cyanocobalamin (vit B-12) 1,000 mcg/mL injection solution RxNorm: 021861 1 Milliliter(s) Inj QW -BIW 04/24/2017 07/22/2017 Inactive disp with syringes please Toujeo SoloStar U-30 0 Insulin 300 unit/mL (1.5 mL) subcutaneous pen RxNorm: 1589008 24 Unit(s) SQ QPM 04/24/2017 04/23/2017 Inactive Novofine 32 32 gauge x 1/4" needle RxNorm: 1 test Miscellaneous daily 04/24/2017 07/22/2017 In active E11.65 use with toudov venlafaxine ER 150 m g tablet,extended release 24 hr RxNorm: 332449 1 Tablet(s) PO daily 04/24/2017 10/10/2017 Inactive cyanocobalamin (vit B-12) 1,000 mcg/mL injection solution RxNorm: 476114 1 Milliliter(s) Inj QW -BIW 04/24/2017 04/23/2017 Inactive metoprolol succinate ER 50 mg tablet,extended release 24 hr RxNorm: 762848 1 Tablet(s) PO daily 04/24/2017 09/17/2017 Inactive Toudov SoloStar U-30 0 Insulin 300 unit/mL (1.5 mL) subcutaneous pen RxNorm: 7859040 24 Unit(s) SQ QPM 04/24/2017 04/25/2017 Inactive Centrum Silver tablet RxNorm: 1 Tablet(s) PO daily No Start Date Active Novolog U-100 Insuli n aspart 100 unit/mL subcutaneous solution RxNorm: 421526 5 Unit(s) SQ AC No Start Date Active magnesium 250 mg tablet RxNorm: 1 Tablet(s) PO as needed No Start Date Active Probiotic Blend oral RxNorm: 955738 oral No Start Date Active Calcium 600 + D(3) 6 00 mg (1,500 mg)-400 unit tablet RxNorm: 129159 1 Tablet(s) PO as needed No Start Date Active atorvastatin 40 mg t ablet RxNorm: 754822 1 Tablet(s) PO QPM No Start Date 08/01/2017 Inactive Novofine 32 32 gauge x 1/4" needle RxNorm: 1 Miscellaneous daily No Start Date 04/23/2017 Inactive cyanocobalamin (vit B-12) 1,000 mcg/mL injection solution RxNorm: 857177 1 Milliliter(s) Inj No Start Date 04/23/2017 Inactive metoprolol succinate ER 50 mg tablet,extended release 24 hr RxNorm: 059597 1 Tablet(s) PO daily No Start Date 04/23/2017 Inactive lisinopril 5 mg tablet RxNorm: 711726 1 Tablet(s) PO QPM No Start Date 04/23/2017 Inactive Restasis MultiDose 0 .05 % eye drops RxNorm: 426463 Drop(s) ophthalmic (e ye) No Start Date 04/23/2017 Inactive venlafaxine ER 150 m g capsule,extended release 24 hr RxNorm: 126313 1 Capsule(s) PO daily No Start Date [...] Code Item Item Code Result Date Lipase Xwg000 LIPASE 26 U/L 05/06/2018 Comp Metabolic Xdx206 NA 140 mEq/L 05/06/2018 Comp Metabolic Uan215 K 4.5 mEq/L 05/06/2018 Comp Metabolic Vtc633 CL 109 mEq/L 05/06/2018 Comp Metabolic Ipg752 CO2 24.0 mEq/L 05/06/2018 Comp Metabolic Mzr762 AN ION GAP 12 05/06/2018 Comp Metabolic Ibn921 GL UCOSE 341 mg/dL 05/06/2018 Comp Metabolic Iya110 Cr eat 1.6 mg/dL 05/06/2018 Comp Metabolic Dgf812 eG FR 34 ml/min/1.73m2 05/06 Comp Metabolic Evg235 BUN 39 mg/dL 05/06/2018 Comp Metabolic Knp037 B/ C Ratio 24.7 Ratio 05/06/2018 Comp Metabolic Gmi161 CA LCIUM 9.1 mg/dL 05/06/2018 Comp Metabolic Uoi450 AL K PHOS 61 U/L 05/06/2018 Comp Metabolic Wmy618 T(SGOT) 21 U/L 05/06/2018 Comp Metabolic Qgi556 AL T(SGPT) 28 U/L 05/06/2018 Comp Metabolic Zbf864 BI LI T 0.3 mg/dL 05/06/2018 Comp Metabolic Qgh465 AL BUMIN 3.8 g/dL 05/06/2018 Comp Metabolic Cbq969 TP RO 6.1 g/dL 05/06/2018 Comp Metabolic Anh458 GL OB 2.4 g/dL 05/06/2018 Comp Metabolic Iaj314 A/ G Ratio 1.6 Ratio 05/06/2018 Comp Metabolic Yhs314 Os mo 302 mOsmo 05/06/2018 Amylase Ord34 AMYLASE 48 U/L 05/06/2018 Lipid Ord30 CHOL 171 mg/dL 12/13/2017 Lipid Ord30 HDL 64.0 mg/dl 12/13/2017 Lipid Ord30 TRIG 89 mg/dL 12/13/2017 Lipid Ord30 LDL 89 mg/dL 12/13/2017 Lipid Ord30 C/HDL 2.7 Ratio 12/13/2017 Comp Metabolic Mpz969 NA 140 mEq/L 12/13/2017 Comp Metabolic Fnk760 K 4.4 mEq/L 12/13/2017 Comp Metabolic Gaf354 CL 107 mEq/L 12/13/2017 Comp Metabolic Bwq159 CO2 23.0 mEq/L 12/13/2017 Comp Metabolic Mpa535 AN ION GAP 14 12/13/2017 Comp Metabolic Cwq259 GL UCOSE 179 mg/dL 12/13/2017 Comp Metabolic Wrx768 Cr eat 1.7 mg/dL 12/13/2017 Comp Metabolic Pey357 eG FR 31 ml/min/1.73m2 12/13 Comp Metabolic Eia116 BUN 40 mg/dL 12/13/2017 Comp Metabolic Ryl358 B/ C Ratio 23.3 Ratio 12/13/2017 Comp Metabolic Uzk495 CA LCIUM 10.3 mg/dL 12/13/2017 Comp Metabolic Sgl484 AL K PHOS 54 U/L 12/13/2017 Comp Metabolic Twj175 T(SGOT) 41 U/L 12/13/2017 Comp Metabolic Rku575 AL T(SGPT) 44 U/L 12/13/2017 Comp Metabolic Mgm697 BI LI T 0.4 mg/dL 12/13/2017 Comp Metabolic Hpx961 AL BUMIN 4.9 g/dL 12/13/2017 Comp Metabolic Iif760 TP RO 7.7 g/dL 12/13/2017 Comp Metabolic Iql296 GL OB 2.8 g/dL 12/13/2017 Comp Metabolic Djr571 A/ G Ratio 1.8 Ratio 12/13/2017 Comp Metabolic Tki264 Os mo 294 mOsmo 12/13/2017 Tsh Ord6 TSH (3rd IS) 2.56 uIU/mL 12/13/2017 %Hba1C Naf199 % HbA1c 53383-6 9.6 % 12/13/2017 %Hba1C Sem233 Gluc Ave 229 mg/dL 12/13/2017 Cbc With [...] 32.0 pg 12/13/2017 Cbc With Differential Ord2 Hughes% 8.0 % 12/13/2017 Cbc With Differential Ord2 [...] 1.44 K/ul 12/13/2017 Cbc With Differential Ord2 Hughes ABS# 0.5 K/ul 12/13/2017 Cbc With Differential Ord2 Eos ABS# 0.1 K/ul 12/13/2017 Cbc With Differential Ord2 Baso ABS# 0.0 K/ul 12/13/2017 %Hba1C Jog960 % HbA1c 88808-2 13.1 % 04/24/2017 %Hba1C Kof596 Gluc Ave 329 mg/dL 04/24/2017 Cbc With [...] 32.0 pg 04/24/2017 Cbc With Differential Ord2 Hughes% 11.0 % 04/24/2017 Cbc With Differential Ord2 [...] 2.39 K/ul 04/24/2017 Cbc With Differential Ord2 Hughes ABS# 0.8 K/ul 04/24/2017 Cbc With Differential Ord2 Eos ABS# 0.1 K/ul 04/24/2017 Cbc With Differential Ord2 Baso ABS# 0.0 K/ul 04/24/2017 Comp Metabolic Ogh692 NA 142 mEq/L 04/24/2017 Comp Metabolic Eja967 K 3.8 mEq/L 04/24/2017 Comp Metabolic Lje087 CL 105 mEq/L 04/24/2017 Comp Metabolic Cak483 CO2 27.0 mEq/L 04/24/2017 Comp Metabolic Wuj956 AN ION GAP 14 04/24/2017 Comp Metabolic Zat270 GL UCOSE 203 mg/dL 04/24/2017 Comp Metabolic Mbk797 Cr eat 1.9 mg/dL 04/24/2017 Comp Metabolic Bem084 eG FR 28 ml/min/1.73m2 04/24 Comp Metabolic Rer176 BUN 26 mg/dL 04/24/2017 Comp Metabolic Kef583 B/ C Ratio 13.6 Ratio 04/24/2017 Comp Metabolic Jrv349 CA LCIUM 9.9 mg/dL 04/24/2017 Comp Metabolic Svo707 AL K PHOS 79 U/L 04/24/2017 Comp Metabolic Bew077 T(SGOT) 25 U/L 04/24/2017 Comp Metabolic Afe458 AL T(SGPT) 36 U/L 04/24/2017 Comp Metabolic Asi606 BI LI T 0.3 mg/dL 04/24/2017 Comp Metabolic Rem677 AL BUMIN 4.5 g/dL 04/24/2017 Comp Metabolic Bkd135 TP RO 6.9 g/dL 04/24/2017 Comp Metabolic Jhy381 GL OB 2.5 g/dL 04/24/2017 Comp Metabolic Dmn446 A/ G Ratio 1.8 Ratio 04/24/2017 Comp Metabolic Aay722 Os mo 294 mOsmo 04/24/2017 Review of [...] Date URINALYSIS NONAUTO W /O SCOPE CPT-4: 99439 05/06/2018 GLUC MONITOR CONT PH YS I&R CPT-4: 43689 09/18/2017 GLUCOSE MONITORING CONT CPT-4: 25556 06/20/2017 Vital Signs Date Vital 05/06/2018 Blood Pressure 1: 128/86 Code: 8480-6 BMI: 20.8 Code: 46838-7 Heart Rate 1: 96 bpm Height: 5'6" SpO2: 96% Weight: 129 lbs 04/30/2018 Blood Pressure 1: 124/66 Code: 8480-6 Heart Rate 1: 87 bpm Height: 5'6" SpO2: 98% 03/19/2018 Blood Pressure 1: 142/84 Code: 8480-6 BMI: 20.5 Code: 99442-1 Heart Rate 1: 88 bpm Height: 5'6" SpO2: 98% Temperature: 36.6 (C ) / 97.9 (F) Weight: 129 lbs 02/01/2018 Blood Pressure 1: 110/52 Code: 8480-6 BMI: 19.9 Code: 41544-2 Height: 5'6" Weight: 125 lbs 12/13/2017 Blood Pressure 1: 140/80 Code: 8480-6 BMI: 19.9 Code: 83896-7 Heart Rate 1: 72 bpm Height: 5'6" SpO2: 95% Weight: 125 lbs 09/18/2017 Blood Pressure 1: 126/82 Code: 8480-6 BMI: 20.0 Code: 25473-9 Heart Rate 1: 103 bpm Height: 5'6" SpO2: 98% Weight: 126 lbs 08/23/2017 Blood Pressure 1: 118/62 Code: 8480-6 Heart Rate 1: 110 bpm Height: 5'6" SpO2: 95% Temperature: 37.1 (C ) / 98.7 (F) 06/20/2017 Heigh t: Weight: 06/11/2017 Blood Pressure 1: 142/76 Code: 8480-6 BMI: 21.3 Code: 63164-2 Heart Rate 1: 102 bpm Height: 5'6" SpO2: 97% Weight: 134 lbs 06/04/2017 Blood Pressure 1: 160/84 Code: 8480-6 BMI: 20.8 Code: 86300-4 Heart Rate 1: 87 bpm Height: 5'6" SpO2: 97% Weight: 131 lbs 04/24/2017 Blood Pressure 1: 132/80 Code: 8480-6 BMI: 20.8 Code: 54622-4 Heart Rate 1: 84 bpm Height: 5'6" [...] Encounters Encounter Performer Loca tion Codes Date ([id number]) 27050 EST. P ATIENT, LEVEL IV Diagnosis: Low back pain[ICD10: M54.5] Diagnosis: Left upper quadrant pain[ICD10: R10.12] Diagnosis: Pain in left hip[ICD10: M25.552] Diagnosis: Pain in left shoulder[ICD10: M25.512] Diagnosis: Repeated falls[ICD10: R29.6] Diagnosis: Unsteadiness on feet[ICD10: R26.81] Diagnosis: Chronic kidney disease, stage 3 (moderate)[ICD10: N18.3] Ana Man MD, [facility] CPT-4: 55079 05/06/2018 66582 EST. PATIENT, LEVEL III Diagnosis: Low back pain[ICD10: M54.5] Diagnosis: Pain in left hip[ICD10: M25.552] Diagnosis: Repeated falls[ICD10: R29.6] Diagnosis: Unsteadiness on feet[ICD10: R26.81] Diagnosis: Headache[ICD10: R51] Diagnosis: Type 2 diabetes mellitus with hyperglycemia[ICD10: E11.65] Shae Man MD, [facility] CPT-4: 75575 04/30/2018 ([id number]) 84967 EST. P ATIENT, LEVEL III Diagnosis: Acute recurrent maxillary sinusitis[ICD10: J01.01] Diagnosis: Rash and other nonspecific skin eruption[ICD10: R21] Ana Man MD, [facility] CPT-4: 73731 03/19/2018 ([id number]) 30135 EST. P ATIENT, LEVEL IV Diagnosis: Acute recurrent maxillary sinusitis[ICD10: J01.01] Diagnosis: Low back pain[ICD10: M54.5] Diagnosis: Unsteadiness on feet[ICD10: R26.81] Diagnosis: Essential (primary) hypertension[ICD10: I10] Ana Man MD, [facility] CPT-4: 86320 02/01/2018 ([id number]) 78872 EST. P ATIENT, LEVEL IV Diagnosis: Type 2 diabetes mellitus with hyperglycemia[ICD10: E11.65] Diagnosis: Essential (primary) hypertension[ICD10: I10] Diagnosis: Other fatigue[ICD10: R53.83] Maude Man MD, [facility] CPT-4: 77976 12/13/2017 ([id number]) 73799 EST. P ATIENT, LEVEL IV Diagnosis: Type 2 diabetes mellitus with hyperglycemia[ICD10: E11.65] Diagnosis: Essential (primary) hypertension[ICD10: I10] Diagnosis: Major depressive disorder, recurrent, in partial remission[ICD10: F33.41] Maude Man MD, [facility] CPT-4: 73836 09/18/2017 ([id number]) 12980 EST. P ATIENT, LEVEL IV Diagnosis: Pouchitis[ICD10: K91.850] Diagnosis: Other fatigue[ICD10: R53.83] Diagnosis: Type 2 diabetes mellitus with hyperglycemia[ICD10: E11.65] Diagnosis: Essential (primary) hypertension[ICD10: I10] Diagnosis: Orthostatic hypotension[ICD10: I95.1] Maude Man MD, [facility] CPT-4: 72363 08/23/2017 ([id number]) Miscellaneou s no charge Diagnosis: Type 2 diabetes mellitus with hyperglycemia[ICD10: E11.65] Shae Man MD, [facility] CPT-4: 05063 06/25/2017 ([id number]) 48836 EST. P ATIENT, LEVEL IV Diagnosis: Type 2 diabetes mellitus with hyperglycemia[ICD10: E11.65] Maude Man MD, [facility] CPT-4: 49183 06/11/2017 ([id number]) 44183 EST. P ATIENT, LEVEL IV Diagnosis: Type 2 diabetes mellitus with hyperglycemia[ICD10: E11.65] Diagnosis: Essential (primary) hypertension[ICD10: I10] Diagnosis: Acute recurrent maxillary sinusitis[ICD10: J01.01] Ana Man MD, [facility] CPT-4: 71301 06/04/2017 OFFICE VISIT, NEW - LEVEL 4 Diagnosis: Left lower quadrant pain[ICD10: R10.32] Diagnosis: Other ulcerative colitis with unspecified complications[ICD10: K51.819] Diagnosis: Essential (primary) hypertension[ICD10: I10] Diagnosis: Type 2 diabetes mellitus without complications[ICD10: E11.9] Diagnosis: Major depressive disorder, recurrent, in partial remission[ICD10: F33.41] Diagnosis: Mary[ICD10: K92.1] [facility] CPT-4: 64842 04/24/2017 Plan of Care Planned Activity Notes C odes Status Date Care Plan: CT HEAD/BRAIN W/O DYE LOINC : 54492-4 Pending 05/08/2018 Visit Plan: Abdominal pain -UA [...] hydration 05/06/2018 [phone] [phone] [place] (15 min) Moderate 05/06/2018 Patient [...] glucose control. 04/30/2018 App[facility]ment[phone] [facility] (30 min) Complex 04/30/2018 Patient Education: [...] worse 03/19/2018 Appointment: Ana Burrell WPtel: [phone] [phone] (30 min) Complex 03/19/2018 Patient Education: [...] appt 02/01/2018 Appointment: Ana Burrell WPtel: [phone] [phone] (30 min) Complex 02/01/2018 Patient Education: Patient Medication Summary Completed 02/01/2018 Patient Education: Back Pain Completed 02/01/2018 Patient Education: Hypertension Completed 02/01/2018 Appointment: Maude Man WPtel: [phone] [facility] (15 min) Moderate 01/24/2018 Referral: Megha Garcia [...] made. 12/13/2017 [phone] (15 min) Moderate 12/13/2017 Patient Education: Patient Medication Summary Completed 12/13/2017 Patient Education: Diabetes Completed 12/13/2017 Patient Education: Hypertension Completed 12/13/2017 Care Plan: Referral Order SNOMED-CT : [id number] Pending 12/13/2017 Appointment: Maude Man [facility]el[facility] [phone] [facility] (15 min) Moderate 11/26/2017 Visit Plan: Diabetes [...] through 09/18/2017 [facility]ment: [phone] [facility] (15 min) Moderate 09/18/2017 Patient Education: Patient Medication Summary Completed 09/18/2017 Referral: External, Ordering Provider Patient informed. Referral info faxed. Completed 09/17/2017 Appointment: Maude Man [facility]Ptel[phone] [facility] (15 min) Moderate 09/06/2017 Visit Plan: Pouchitis [...] Gracia. 08/23/2017 Appointment: [facility]ude [facility]el[phone] [facility] (15 min) Moderate 08/23/2017 Patient Education: Patient Medication Summary Completed 08/23/2017 Care Plan: Comp Metabolic Cancelled 08/23/2017 Care Plan: Cbc With Differential Cancelled 08/23/2017 Care Plan: %Hba1C NATTY C : 33515-9 Cancelled 08/23/2017 Care Plan: Magnesium Cancelled 08/23/2017 Care Plan: Referral Order SNOMED-CT : [id number] Pending 08/23/2017 Appointment: Sanam [facility] [phone] [facility] [place] (15 min) Moderate 08/13/2017 Visit Plan: CGM removed - pt tolera jomar procedure well - no changes at this time. 06/25/2017 Patient Education: Patient Medication Summary Completed 06/25/2017 Appointment: [facility]ude [facility]el[phone] [facility] [place] (15 min) Moderate 06/21/2017 Visit Plan: [...] glucose control. 06/20/2017 [facility]ment: [phone] [place] (30 min) Complex 06/20/2017 Patient Education: Patient Medication Summary Completed 06/20/2017 Visit Plan: Diabetes Mellitus - [facility] ontrolled - per recent FSBS reports. [...] Completed 06/11/2017 Visit Plan: Diabetes Mellitus - [facility] ontrolled - per recent FSBS reports. [...] Completed 06/04/2017 App[facility]ment: [facility] [phone] [phone] [place] (30 min) Complex 05/31/2017 App[facility]ment: [phone] [phone] [place] (30 min) Complex 05/29/2017 Appointment: Ana Burrell WPtel: [phone] (30 min) Complex 05/24/2017 Visit Plan: [...] current medications. 04/24/2017 Appointment: Ana Burrell WPtel: [phone] New Patient 04/24/2017 Patient Education: Patient Medication Summary Completed 04/24/2017 Appointment: Shae Guerrero WPtel: [facility] New Patient 04/20/2017 Referral: External, Ordering Provider [...]
--- OUTSIDE RECORDS SUMMARY | 2019-01-29 06:14 | XMS REPORT | CCD ---
Author Author Baylee Burrell Organization Maude Man MD, [facility] Address [address] [place] [address] Phone Care Team Providers Care Slitting And Shipping Supervisor Name Role Phone PP Unavailable CCM Unavailable Summary Purpose Interface Exchange Insurance Providers Payer name Policy type / Coverage type Covered alliance party ID Effective Begin Date Effective End Date WPS Medicare Part B Blue Cross/Blue Shield [id number] Unknown Blue Cross Blue Shield [facility] [place] e Cross/Blue Shield [id number] Un known Blue Cross/Blue Shield [id number] Unknown Family history Sister Diagnosis Age At [...] 1 04/24/2017 Employment Unknown [employer] 04/24/[address]: 730019404 Never smoker 04/24/[address]: 016718679 Never drinks alcohol 04/24/2017 Allergies, Adverse Reactions, Alerts Substance Reaction Codes Entered Date Inactivated Date Status Levaquin RxNorm: 11523 04/24/2017 No Inactive Date Active Past Medical History Illness Codes Condition Status Onset Date Resolved Date Acute recurrent maxi llary sinusitis ICD-9: 461.0 ICD-10: J01.01 Active 06/04/2017 Unknown Rash and other nonsp ecific skin eruption ICD-9: 782.1 ICD-10: R21 Active 03/19/2018 Unknown Essential (primary) hypertension ICD-9: 401.9 ICD-10: I10 Active 04/24/2017 Unknown Low back pain ICD-9: 724.2 ICD-10: M54.5 Active 02/01/2018 Unknown Orthostatic hypotension ICD-9: 458.0 ICD-10: I95.1 Active 08/23/2017 Unknown Unsteadiness on feet ICD-9: 781.2 ICD-10: R26.81 Active 02/01/2018 Unknown Major depressive dis order, recurrent, in partial remission ICD-9: 296.35 ICD-10: F33.41 Active 04/24/2017 Unknown Other fatigue ICD-9: 780.79 ICD-10: R53.83 Active 08/23/2017 Unknown Type 2 diabetes karina itus with hyperglycemia ICD-9: 250.02 ICD-10: E11.65 Active 06/04/2017 Unknown Pouchitis ICD-9: 569.71 ICD-10: K91.850 Active [...] Codes Effectiv e Dates Condition Status Acute recurrent maxi llary sinusitis ICD-9: 461.0 ICD-10: J01.01 06/04/2017 Active Rash and other nonsp ecific skin eruption ICD-9: 782.1 ICD-10: R21 03/19/2018 Active Essential (primary) hypertension ICD-9: 401.9 ICD-10: I10 04/24/2017 Active Low back pain ICD-9: 724.2 ICD-10: M54.5 02/01/2018 Active Orthostatic hypotension ICD-9: 458.0 ICD-10: I95.1 08/23/2017 Active Unsteadiness on feet ICD-9: 781.2 ICD-10: R26.81 02/01/2018 Active Major depressive dis order, recurrent, in partial remission ICD-9: 296.35 ICD-10: F33.41 04/24/2017 Active Other fatigue ICD-9: 780.79 ICD-10: R53.83 08/23/2017 Active Type 2 diabetes karina itus with hyperglycemia ICD-9: 250.02 ICD-10: E11.65 06/04/2017 Active Pouchitis ICD-9: 569.71 ICD-10: K91.850 08/23/2017 [...] Stop Date Sta tus Fill Instructions Sandee Doe U-1 00 Insulin 100 unit/mL (3 mL) subcutaneous RxNorm: 6631012 46 Unit(s) SQ daily 05/03/2018 11/28/2018 Active qty sufficient for 1 month doxycycline hyclate 100 mg tablet RxNorm: 7337257 1 Tablet(s) PO BID 03/19/2018 03/25/2018 Inactive mupirocin 2 % topica l ointment RxNorm: 889768 1 Application TOP BID 03/19/2018 03/28/2018 Inactive Basaglar KwikPen U-1 00 Insulin 100 unit/mL (3 mL) subcutaneous RxNorm: 7939496 45 Unit(s) SQ daily 03/06/2018 05/02/2018 Inactive Basaglar KwikPen U-1 00 Insulin 100 unit/mL (3 mL) subcutaneous RxNorm: 6317830 45 Unit(s) SQ daily 03/06/2018 03/05/2018 Inactive Toujeo SoloStar U-30 0 Insulin 300 unit/mL (1.5 mL) subcutaneous pen RxNorm: 2848548 Unit(s) INJECT 45 UNITS UNDER THE SKIN DAILY 02/22/2018 03/05/2018 Inactive 30 d ay supply Toujeo SoloStar U-30 0 Insulin 300 unit/mL (1.5 mL) subcutaneous pen RxNorm: 8965272 INJECT 40 UNITS UNDER THE SKIN DAILY 02/21/2018 02/21/2018 Inactive Keflex 500 mg capsule RxNorm: 360065 1 Capsule(s) PO TID 02/01/2018 02/07/2018 Inactive Toujeo SoloStar U-30 0 Insulin 300 unit/mL (1.5 mL) subcutaneous pen RxNorm: 4495231 45 Unit(s) SQ daily 12/26/2017 No Stop Date Active atorvastatin 40 mg t ablet RxNorm: 835751 Tablet(s) TAKE ONE-REA LF TABLET BY MOUTH EVERY EVENING 12/26/2017 No Stop Date Active Restasis 0.05 % eye drops in a dropperette RxNorm: 196352 INSTILL ONE DROP IN E [facility] EYE EVERY 12 HOURS 12/24/2017 04/22/2018 Inactive atorvastatin 40 mg t ablet RxNorm: 803430 TAKE ONE TABLET BY [facility] EVERY EVENING 12/17/2017 12/25/2017 In active venlafaxine ER 150 m g tablet,extended release 24 hr RxNorm: 016009 TAKE ONE CAPSULE BY MOUTH DAILY 10/11/2017 07/07/2018 Active metoprolol succinate ER 50 mg tablet,extended release 24 hr RxNorm: 108728 TAKE ONE TABLET BY MOUTH DAILY 10/11/2017 07/07/2018 Active atorvastatin 40 mg t ablet RxNorm: 176139 TAKE ONE TABLET BY [facility] EVERY EVENING 10/11/2017 12/16/2017 In active metoprolol succinate ER 25 mg tablet,extended release 24 hr RxNorm: 792428 1/2 Tablet(s) PO daily 09/18/2017 03/16/2018 Inactive metronidazole 500 mg tablet RxNorm: 366704 1 Tablet(s) PO TID 08/23/2017 09/01/2017 Inactive Diflucan 150 mg tablet RxNorm: 472403 1 Tablet(s) PO daily 08/23/2017 09/01/2017 Inactive atorvastatin 40 mg t ablet RxNorm: 344196 1 Tablet(s) PO QPM 08/02/2017 10/10/2017 Inactive Toujeo SoloStar U-30 0 Insulin 300 unit/mL (1.5 mL) subcutaneous pen RxNorm: 3900597 40 Unit(s) SQ daily 07/30/2017 12/25/2017 Inactive Novofine 32 32 gauge x 1/4" needle RxNorm: USE TO TEST BLOOD SUGAR ONC E DAILY 07/26/2017 04/16/2019 Ac tive Toujeo SoloStar U-30 0 Insulin 300 unit/mL (1.5 mL) subcutaneous pen RxNorm: 3258005 INJECT 24 UNITS UNDER THE SKIN EVERY EVENING 07/26/2017 07/29/2017 Inactive Apidra U-100 Insulin 100 unit/mL subcutaneous solution RxNorm: 568011 5 Unit(s) SQ AC 06/06/2017 06/06/2017 Inactive start with 5 units with breakfast -call with blood sugars in 1 week Keflex 500 mg capsule RxNorm: 577115 1 Capsule(s) PO TID 06/04/2017 06/10/2017 Inactive Apidra U-100 Insulin 100 unit/mL subcutaneous solution RxNorm: 175174 5 Unit(s) SQ AC 06/04/2017 06/05/2017 Inactive start with 5 units with breakfast -call with blood sugars in 1 week Restasis 0.05 % eye drops in a dropperette RxNorm: 329627 1 gtts ophthalmic (ey e) Q12H 06/04/2017 07/03/2017 Inactive Toujeo SoloStar U-30 0 Insulin 300 unit/mL (1.5 mL) subcutaneous pen RxNorm: 6093407 28 Unit(s) SQ QPM x1 week, then 32 units daily. 04/26/2017 08/28/2017 Inactive Restasis MultiDose 0 .05 % eye drops RxNorm: 487983 1 Drop(s) ophthalmic (eye) daily - BID 04/24/2017 No Stop Date Active cyanocobalamin (vit B-12) 1,000 mcg/mL injection solution RxNorm: 348874 1 Milliliter(s) Inj QW -BIW 04/24/2017 07/22/2017 Inactive disp with syringes please Toujeo SoloStar U-30 0 Insulin 300 unit/mL (1.5 mL) subcutaneous pen RxNorm: 1649699 24 Unit(s) SQ QPM 04/24/2017 04/23/2017 Inactive Novofine 32 32 gauge x 1/4" needle RxNorm: 1 test Miscellaneous daily 04/24/2017 07/22/2017 In active E11.65 use with toudov venlafaxine ER 150 m g tablet,extended release 24 hr RxNorm: 310145 1 Tablet(s) PO daily 04/24/2017 10/10/2017 Inactive cyanocobalamin (vit B-12) 1,000 mcg/mL injection solution RxNorm: 651661 1 Milliliter(s) Inj QW -BIW 04/24/2017 04/23/2017 Inactive metoprolol succinate ER 50 mg tablet,extended release 24 hr RxNorm: 123664 1 Tablet(s) PO daily 04/24/2017 09/17/2017 Inactive Toujeo SoloStar U-30 0 Insulin 300 unit/mL (1.5 mL) subcutaneous pen RxNorm: 4031049 24 Unit(s) SQ QPM 04/24/2017 04/25/2017 Inactive Centrum Silver tablet RxNorm: 1 Tablet(s) PO daily No Start Date Active Novolog U-100 Insuli n aspart 100 unit/mL subcutaneous solution RxNorm: 605759 5 Unit(s) SQ AC No Start Date Active magnesium 250 mg tablet RxNorm: 1 Tablet(s) PO as needed No Start Date Active Probiotic Blend oral RxNorm: 288730 oral No Start Date Active Calcium 600 + D(3) 6 00 mg (1,500 mg)-400 unit tablet RxNorm: 344364 1 Tablet(s) PO as needed No Start Date Active atorvastatin 40 mg t ablet RxNorm: 168043 1 Tablet(s) PO QPM No Start Date 08/01/2017 Inactive Novofine 32 32 gauge x 1/4" needle RxNorm: 1 Miscellaneous daily No Start Date 04/23/2017 Inactive cyanocobalamin (vit B-12) 1,000 mcg/mL injection solution RxNorm: 708029 1 Milliliter(s) Inj No Start Date 04/23/2017 Inactive metoprolol succinate ER 50 mg tablet,extended release 24 hr RxNorm: 955321 1 Tablet(s) PO daily No Start Date 04/23/2017 Inactive lisinopril 5 mg tablet RxNorm: 972223 1 Tablet(s) PO QPM No Start Date 04/23/2017 Inactive Restasis MultiDose 0 .05 % eye drops RxNorm: 941620 Drop(s) ophthalmic (e ye) No Start Date 04/23/2017 Inactive venlafaxine ER 150 m g capsule,extended release 24 hr RxNorm: 512411 1 Capsule(s) PO daily No Start Date 04/23/2017 Inactive Toudov SoloStar U-30 0 Insulin subcutaneous RxNorm: subcutaneous No Start Date 04/23/2017 Inactive Medication Administered No Medication Administered data Immunizations No Immunization data Assessments Condition Codes Effectiv e Dates Rash and other nonspecific skin eruption ICD-10: R21 ICD-9: 782.1 03/19/2018 Acute recurrent maxillary sinusitis ICD-10: J01.01 ICD-9: 461.0 03/19/2018 Low back pain ICD-10: M54.5 ICD-9: 724.2 02/01/2018 Essential (primary) hypertension ICD -10: I10 ICD-9: 401.9 02/01/2018 Unsteadiness on feet ICD-10: R26.81 ICD-9: 781.2 02/01/2018 Type 2 diabetes mellitus with hyperglycemia ICD-10: E11.65 ICD-9: 250.02 12/13/2017 Other fatigue ICD-10: R53.83 ICD-9: 780.79 12/13/2017 [...] Visit Reason For Visit Effective Dates Notes sore throat 03/19/2018 low back and leg pain 02/01/2018 headache 12/13/2017 diabetes mellitus 09/18/2017 gait abnormality 08/23/2017 diabetes mellitus 06/20/2017 continuous blood glucose monitor diabetes mellitus 06/11/2017 diabetes mellitus 06/04/2017 diabetes mellitus 04/24/2017 Results Observation Observation Code Item Item Code Result Date Lipid Ord30 CHOL 171 mg/dL 12/13/2017 Lipid Ord30 HDL 64.0 mg/dl 12/13/2017 Lipid Ord30 TRIG 89 mg/dL 12/13/2017 Lipid Ord30 LDL 89 mg/dL 12/13/2017 Lipid Ord30 C/HDL 2.7 Ratio 12/13/2017 Comp Metabolic Wwp307 NA 140 mEq/L 12/13/2017 Comp Metabolic Pak806 K 4.4 mEq/L 12/13/2017 Comp Metabolic Pts163 CL 107 mEq/L 12/13/2017 Comp Metabolic Nuc406 CO2 23.0 mEq/L 12/13/2017 Comp Metabolic Foj855 AN ION GAP 14 12/13/2017 Comp Metabolic Zoe233 GL UCOSE 179 mg/dL 12/13/2017 Comp Metabolic Wbt737 Cr eat 1.7 mg/dL 12/13/2017 Comp Metabolic Vxl318 eG FR 31 ml/min/1.73m2 12/13 Comp Metabolic Lsl209 BUN 40 mg/dL 12/13/2017 Comp Metabolic Fzp426 B/ C Ratio 23.3 Ratio 12/13/2017 Comp Metabolic Tqg113 CA LCIUM 10.3 mg/dL 12/13/2017 Comp Metabolic Mml030 AL K PHOS 54 U/L 12/13/2017 Comp Metabolic Wxb050 T(SGOT) 41 U/L 12/13/2017 Comp Metabolic Rfi184 AL T(SGPT) 44 U/L 12/13/2017 Comp Metabolic Hlt059 BI LI T 0.4 mg/dL 12/13/2017 Comp Metabolic Cjh885 AL BUMIN 4.9 g/dL 12/13/2017 Comp Metabolic Smx713 TP RO 7.7 g/dL 12/13/2017 Comp Metabolic Jwz075 GL OB 2.8 g/dL 12/13/2017 Comp Metabolic Dhm631 A/ G Ratio 1.8 Ratio 12/13/2017 Comp Metabolic Qpi418 Os mo 294 mOsmo 12/13/2017 Tsh Ord6 TSH (3rd IS) 2.56 uIU/mL 12/13/2017 %Hba1C Mdr080 % HbA1c 29161-8 9.6 % 12/13/2017 %Hba1C Bnh179 Gluc Ave 229 mg/dL 12/13/2017 Cbc With [...] 32.0 pg 12/13/2017 Cbc With Differential Ord2 [place]% 8.0 % 12/13/2017 Cbc With Differential Ord2 [...] 1.44 K/ul 12/13/2017 Cbc With Differential Ord2 [place] ABS# 0.5 K/ul 12/13/2017 Cbc With Differential Ord2 Eos ABS# 0.1 K/ul 12/13/2017 Cbc With Differential Ord2 Baso ABS# 0.0 K/ul 12/13/2017 %Hba1C Fza284 % HbA1c 89862-2 13.1 % 04/24/2017 %Hba1C Pmn024 Gluc Ave 329 mg/dL 04/24/2017 Cbc With [...] 32.0 pg 04/24/2017 Cbc With Differential Ord2 [place]% 11.0 % 04/24/2017 Cbc With Differential Ord2 [...] 2.39 K/ul 04/24/2017 Cbc With Differential Ord2 [place] ABS# 0.8 K/ul 04/24/2017 Cbc With Differential Ord2 Eos ABS# 0.1 K/ul 04/24/2017 Cbc With Differential Ord2 Baso ABS# 0.0 K/ul 04/24/2017 Comp Metabolic Qzb196 NA 142 mEq/L 04/24/2017 Comp Metabolic Vwi527 K 3.8 mEq/L 04/24/2017 Comp Metabolic Xam680 CL 105 mEq/L 04/24/2017 Comp Metabolic Hri055 CO2 27.0 mEq/L 04/24/2017 Comp Metabolic Uet015 AN ION GAP 14 04/24/2017 Comp Metabolic Oaz319 GL UCOSE 203 mg/dL 04/24/2017 Comp Metabolic Xbg326 Cr eat 1.9 mg/dL 04/24/2017 Comp Metabolic Vfy461 eG FR 28 ml/min/1.73m2 04/24 Comp Metabolic Exb749 BUN 26 mg/dL 04/24/2017 Comp Metabolic Uoc687 B/ C Ratio 13.6 Ratio 04/24/2017 Comp Metabolic Ayr652 CA LCIUM 9.9 mg/dL 04/24/2017 Comp Metabolic Xcr992 AL K PHOS 79 U/L 04/24/2017 Comp Metabolic Zzp665 T(SGOT) 25 U/L 04/24/2017 Comp Metabolic Zly984 AL T(SGPT) 36 U/L 04/24/2017 Comp Metabolic Ypd986 BI LI T 0.3 mg/dL 04/24/2017 Comp Metabolic Awt728 AL BUMIN 4.5 g/dL 04/24/2017 Comp Metabolic Yps293 TP RO 6.9 g/dL 04/24/2017 Comp Metabolic Vxc084 GL OB 2.5 g/dL 04/24/2017 Comp Metabolic Hii303 A/ G Ratio 1.8 Ratio 04/24/2017 Comp Metabolic Wmj918 Os mo 294 mOsmo 04/24/2017 Review of Systems System Result Effective Dates Constitutional recent illness 03/19/2018 Constitutional No anorexia [...] size 04/24/2017 None Procedures Procedure Codes Date GLUC MONITOR CONT PH YS I&R CPT-4: 82341 09/18/2017 GLUCOSE MONITORING CONT CPT-4: 39062 06/20/2017 Vital Signs Date Vital 03/19/2018 Blood Pressure 1: 142/84 Code: 8480-6 BMI: 20.5 Code: 08481-8 Heart Rate 1: 88 bpm Height: 5'6" SpO2: 98% Temperature: 36.6 (C ) / 97.9 (F) Weight: 129 lbs 02/01/2018 Blood Pressure 1: 110/52 Code: 8480-6 BMI: 19.9 Code: 89955-2 Height: 5'6" Weight: 125 lbs 12/13/2017 Blood Pressure 1: 140/80 Code: 8480-6 BMI: 19.9 Code: 17464-2 Heart Rate 1: 72 bpm Height: 5'6" SpO2: 95% Weight: 125 lbs 09/18/2017 Blood Pressure 1: 126/82 Code: 8480-6 BMI: 20.0 Code: 79688-0 Heart Rate 1: 103 bpm Height: 5'6" SpO2: 98% Weight: 126 lbs 08/23/2017 Blood Pressure 1: 118/62 Code: 8480-6 Heart Rate 1: 110 bpm Height: 5'6" SpO2: 95% Temperature: 37.1 (C ) / 98.7 (F) 06/20/2017 Heigh t: Weight: 06/11/2017 Blood Pressure 1: 142/76 Code: 8480-6 BMI: 21.3 Code: 01216-2 Heart Rate 1: 102 bpm Height: 5'6" SpO2: 97% Weight: 134 lbs 06/04/2017 Blood Pressure 1: 160/84 Code: 8480-6 BMI: 20.8 Code: 08584-2 Heart Rate 1: 87 bpm Height: 5'6" SpO2: 97% Weight: 131 lbs 04/24/2017 Blood Pressure 1: 132/80 Code: 8480-6 BMI: 20.8 Code: 39318-8 Heart Rate 1: 84 bpm Height: 5'6" SpO2: 99% Weight: 131 lbs Functional Status No Functional Status data History of Present Illness Symptom Name Status Resu lt Effective Date Notes Quality acute 03/19/2018 None Pertinent Findings Den [...] Encounters Encounter Performer Loca tion Codes Date () 04222 EST. P ATIENT, LEVEL III Diagnosis: Acute recurrent maxillary sinusitis[ICD10: J01.01] Diagnosis: Rash and other nonspecific skin eruption[ICD10: R21] Ana Man MD, [facility] CPT-4: 69539 03/19/2018 ([id number]) 67617 EST. P ATIENT, LEVEL IV Diagnosis: Acute recurrent maxillary sinusitis[ICD10: J01.01] Diagnosis: Low back pain[ICD10: M54.5] Diagnosis: Unsteadiness on feet[ICD10: R26.81] Diagnosis: Essential (primary) hypertension[ICD10: I10] Ana Man MD, [facility] CPT-4: 49436 02/01/2018 ([id number] 10512 EST. P ATIENT, LEVEL IV Diagnosis: Type 2 diabetes mellitus with hyperglycemia[ICD10: E11.65] Diagnosis: Essential (primary) hypertension[ICD10: I10] Diagnosis: Other fatigue[ICD10: R53.83] Maude Man MD, [facility] CPT-4: 02362 12/13/2017 ([id number]) 39001 EST. P ATIENT, LEVEL IV Diagnosis: Type 2 diabetes mellitus with hyperglycemia[ICD10: E11.65] Diagnosis: Essential (primary) hypertension[ICD10: I10] Diagnosis: Major depressive disorder, recurrent, in partial remission[ICD10: F33.41] Maude Man MD, [facility] CPT-4: 29651 09/18/2017 ([id number]) 61075 EST. P ATIENT, LEVEL IV Diagnosis: Pouchitis[ICD10: K91.850] Diagnosis: Other fatigue[ICD10: R53.83] Diagnosis: Type 2 diabetes mellitus with hyperglycemia[ICD10: E11.65] Diagnosis: Essential (primary) hypertension[ICD10: I10] Diagnosis: Orthostatic hypotension[ICD10: I95.1] Maude Man MD, [facility] CPT-4: 85091 08/23/2017 ([id number]) Miscellron jackson no charge Diagnosis: Type 2 diabetes mellitus with hyperglycemia[ICD10: E11.65] Shae Man MD, [facility] CPT-4: 43245 06/25/2017 ([id number]) 91553 EST. P ATIENT, LEVEL IV Diagnosis: Type 2 diabetes mellitus with hyperglycemia[ICD10: E11.65] Maude Man MD, [facility] CPT-4: 08758 06/11/2017 ([id number]) 72508 EST. P ATIENT, LEVEL IV Diagnosis: Type 2 diabetes mellitus with hyperglycemia[ICD10: E11.65] Diagnosis: Essential (primary) hypertension[ICD10: I10] Diagnosis: Acute recurrent maxillary sinusitis[ICD10: J01.01] Ana Mna MD, [facility] CPT-4: 18292 06/04/2017 OFFICE VISIT, [facility] - LEVEL 4 Diagnosis: Left lower quadrant pain[ICD10: R10.32] Diagnosis: Other ulcerative colitis with unspecified complications[ICD10: K51.819] Diagnosis: Essential (primary) hypertension[ICD10: I10] Diagnosis: Type 2 diabetes mellitus without complications[ICD10: E11.9] Diagnosis: Major depressive disorder, recurrent, in partial remission[ICD10: F33.41] Diagnosis: Melena[ICD10: K92.1] Ana Man MD, [facility] CPT-4: 94261 04/24/2017 Plan of Care Planned Activity Notes C odes Status Date Appointment: [facility] ([facility] 04/30/2018 Visit Plan: Sinusitis - Pt has [...] worse 03/19/2018 Appointment: Ana Burrell WPtel: [phone] [phone] (30 min) Complex 03/19/2018 Patient Education: [...] appt 02/01/2018 Appointment: Ana Burrell WPtel: [phone] [phone] (30 min) Complex 02/01/2018 Patient Education: Patient Medication Summary Completed 02/01/2018 Patient Education: Back Pain Completed 02/01/2018 Patient Education: Hypertension Completed 02/01/2018 Appointment: Maude Man WPtel: [phone] [facility] (15 min) Moderate 01/24/2018 Referral: Megha Garcia [...] been made. 12/13/2017 Appointment: [facility] [phone] [facility] [place] (15 min) Moderate 12/13/2017 Patient Education: Patient Medication Summary Completed 12/13/2017 Patient Education: Diabetes Completed 12/13/2017 Patient Education: Hypertension Completed 12/13/2017 Care Plan: Referral Order SNOMED-CT : [id number] Pending 12/13/2017 Appointment: [facility]ude [facility]el[facility] [phone] [facility] [place] (15 min) Moderate 11/26/2017 [...] followed through 09/18/2017 Appointment: Maude Man WPtel: [address] [place] [address] (15 min) Moderate 09/18/2017 Patient Education: Patient Medication Summary Completed 09/18/2017 Referral: External, Ordering Provider Patient informed. Referral info faxed. Completed 09/17/2017 Appointment: Maude Man WPtel: [address] [place] [address] (15 min) Moderate 09/06/2017 Visit Plan: Pouchitis [...] Dr. Gracia. 08/23/2017 Appointment: Maude Man WPtel: [address] [place], [place] [phone] (15 min) Moderate 08/23/2017 Patient Education: Patient Medication Summary Completed 08/23/2017 Care Plan: Comp Metabolic Cancelled 08/23/2017 Care Plan: Cbc With Differential Cancelled 08/23/2017 Care Plan: %Hba1C LOIN C : 79904-8 Cancelled 08/23/2017 Care Plan: Magnesium Cancelled 08/23/2017 Care Plan: Referral Order SNOMED-CT : [id number] Pending 08/23/2017 Appointment: Maude Man WPtel: [address] [place], [place] [phone] (15 min) Moderate 08/13/2017 Visit Plan: CGM removed - pt tolera jomar procedure well - no changes at this time. 06/25/2017 Patient Education: Patient Medication Summary Completed 06/25/2017 App[facility]ment: [facility] [phone] [facility] (15 min) Moderate 06/21/2017 Visit Plan: Continuous [...] control. 06/20/2017 Appointment: [phone] [facility] ([facility] min) Complex 06/20/2017 Patient Education: [...] Completed 06/04/2017 Appointment: Ana Burrell WPtel: [phone] [phone] [place] (30 min) Complex 05/31/2017 Appointment: Ana Burrell WPtel: [phone] [place] (30 min) Complex 05/29/2017 Appointment: Ana Burrell WPtel: [phone] [phone] [place] (30 min) Complex 05/24/2017 Visit Plan: Left [...] current medications. 04/24/2017 Appointment: [facility] [phone] [phone] New Patient 04/24/2017 Patient Education: Patient Medication Summary Completed 04/24/2017 Appointment: Sh[facility]erre[facility] [phone] [facility] New Patient 04/20/2017 Referral: External, Ordering Provider Referral Appointment Requested Referral: Megha Garcia Referral Appointment Requested Instructions Comment . Continuous glucose monitor placed - pt [...] change in current medications. Physical therapy asad Dyer xray lumbar spine keflex for sinus infection [...]
--- OUTSIDE RECORDS SUMMARY | 2019-01-29 06:14 | XMS REPORT | CCD ---
Author Author Baylee Burrell Organization Maude Man MD, [facility] Address [address] [place] [address] Phone Care Team Providers Care Incinerator Attendant Name Role Phone PP Unavailable CCM Unavailable Summary Purpose Interface Exchange Insurance Providers Payer name Policy type / Coverage type Covered democrat ID Effective Begin Date Effective End Date WPS Medicare Part B Blue Cross/Blue Shield [id number] Unknown Blue Cross Blue Shield [facility] [place] e Cross/Blue Shield [id number] Un known Blue Cross/Blue Shield [id number] Unknown Family history Sister Diagnosis Age At [...] 1 04/24/2017 Employment Unknown [employer] 04/24/[address]: 971185405 Never smoker 04/24/[address]: 260891002 Never drinks alcohol 04/24/2017 Allergies, Adverse Reactions, Alerts Substance Reaction Codes Entered Date Inactivated Date Status Levaquin RxNorm: 06749 04/24/2017 No Inactive Date Active Past Medical [...] ICD-9: 781.2 ICD-10: R26.81 Active 02/01/2018 Unknown Acute recurrent maxi llary sinusitis ICD-9: [...] feet ICD-9: 781.2 ICD-10: R26.81 02/01/2018 Active Acute recurrent maxi llary sinusitis ICD-9: [...] Fill Instructions Zofran 4 mg tablet RxNorm: 670183 1 Tablet(s) PO Q6 PRN 05/06/2018 No Stop Date Active tramadol 50 mg tablet RxNorm: 728104 1 Tablet(s) PO Q6 PRN 05/06/2018 No Stop Date Active Basaglar KwikPen U-1 00 Insulin 100 unit/mL (3 mL) subcutaneous RxNorm: 8418718 46 Unit(s) SQ daily 05/03/2018 11/28/2018 Active qty sufficient for 1 month doxycycline hyclate 100 mg tablet RxNorm: 6952506 1 Tablet(s) PO BID 03/19/2018 03/25/2018 Inactive mupirocin 2 % topica l ointment RxNorm: 625904 1 Application TOP BID 03/19/2018 03/28/2018 Inactive Basaglar KwikPen U-1 00 Insulin 100 unit/mL (3 mL) subcutaneous RxNorm: 5681348 45 Unit(s) SQ daily 03/06/2018 05/02/2018 Inactive Basaglar KwikPen U-1 00 Insulin 100 unit/mL (3 mL) subcutaneous RxNorm: 2248869 45 Unit(s) SQ daily 03/06/2018 03/05/2018 Inactive Toujeo SoloStar U-30 0 Insulin 300 unit/mL (1.5 mL) subcutaneous pen RxNorm: 8480025 Unit(s) INJECT 45 UNITS UNDER THE SKIN DAILY 02/22/2018 03/05/2018 Inactive 30 d ay supply Toujeo SoloStar U-30 0 Insulin 300 unit/mL (1.5 mL) subcutaneous pen RxNorm: 7975014 INJECT 40 UNITS UNDER THE SKIN DAILY 02/21/2018 02/21/2018 Inactive Keflex 500 mg capsule RxNorm: 345353 1 Capsule(s) PO TID 02/01/2018 02/07/2018 Inactive Toujeo SoloStar U-30 0 Insulin 300 unit/mL (1.5 mL) subcutaneous pen RxNorm: 2487248 45 Unit(s) SQ daily 12/26/2017 No Stop Date Active atorvastatin 40 mg t ablet RxNorm: 884028 Tablet(s) TAKE ONE-REA LF TABLET BY MOUTH EVERY EVENING 12/26/2017 No Stop Date Active Restasis 0.05 % eye drops in a dropperette RxNorm: 125667 INSTILL ONE DROP IN E ACH EYE EVERY 12 HOURS 12/24/2017 04/22/2018 Inactive atorvastatin 40 mg t ablet RxNorm: 092775 TAKE ONE TABLET BY MO UTH EVERY EVENING 12/17/2017 12/25/2017 In active venlafaxine ER 150 m g tablet,extended release 24 hr RxNorm: 775861 TAKE ONE CAPSULE BY MOUTH DAILY 10/11/2017 07/07/2018 Active metoprolol succinate ER 50 mg tablet,extended release 24 hr RxNorm: 665068 TAKE ONE TABLET BY MOUTH DAILY 10/11/2017 07/07/2018 Active atorvastatin 40 mg t ablet RxNorm: 098932 TAKE ONE TABLET BY MO UTH EVERY EVENING 10/11/2017 12/16/2017 In active metoprolol succinate ER 25 mg tablet,extended release 24 hr RxNorm: 533349 1/2 Tablet(s) PO daily 09/18/2017 03/16/2018 Inactive metronidazole 500 mg tablet RxNorm: 299314 1 Tablet(s) PO TID 08/23/2017 09/01/2017 Inactive Diflucan 150 mg tablet RxNorm: 626739 1 Tablet(s) PO daily 08/23/2017 09/01/2017 Inactive atorvastatin 40 mg t ablet RxNorm: 766593 1 Tablet(s) PO QPM 08/02/2017 10/10/2017 Inactive Toujeo SoloStar U-30 0 Insulin 300 unit/mL (1.5 mL) subcutaneous pen RxNorm: 4190328 40 Unit(s) SQ daily 07/30/2017 12/25/2017 Inactive Novofine 32 32 gauge x 1/4" needle RxNorm: USE TO TEST BLOOD SUGAR ONC E DAILY 07/26/2017 04/16/2019 Ac tive Toujeo SoloStar U-30 0 Insulin 300 unit/mL (1.5 mL) subcutaneous pen RxNorm: 6637407 INJECT 24 UNITS UNDER THE SKIN EVERY EVENING 07/26/2017 07/29/2017 Inactive Apidra U-100 Insulin 100 unit/mL subcutaneous solution RxNorm: 516219 5 Unit(s) SQ AC 06/06/2017 06/06/2017 Inactive start with 5 units with breakfast -call with blood sugars in 1 week Keflex 500 mg capsule RxNorm: 254136 1 Capsule(s) PO TID 06/04/2017 06/10/2017 Inactive Apidra U-100 Insulin 100 unit/mL subcutaneous solution RxNorm: 222839 5 Unit(s) SQ AC 06/04/2017 06/05/2017 Inactive start with 5 units with breakfast -call with blood sugars in 1 week Restasis 0.05 % eye drops in a dropperette RxNorm: 689259 1 gtts ophthalmic (ey e) Q12H 06/04/2017 07/03/2017 Inactive Toujeo SoloStar U-30 0 Insulin 300 unit/mL (1.5 mL) subcutaneous pen RxNorm: 9873610 28 Unit(s) SQ QPM x1 week, then 32 units daily. 04/26/2017 08/28/2017 Inactive Restasis MultiDose 0 .05 % eye drops RxNorm: 067424 1 Drop(s) ophthalmic (eye) daily - BID 04/24/2017 No Stop Date Active cyanocobalamin (vit B-12) 1,000 mcg/mL injection solution RxNorm: 615191 1 Milliliter(s) Inj QW -BIW 04/24/2017 07/22/2017 Inactive disp with syringes please Toujeo SoloStar U-30 0 Insulin 300 unit/mL (1.5 mL) subcutaneous pen RxNorm: 1864037 24 Unit(s) SQ QPM 04/24/2017 04/23/2017 Inactive Novofine 32 32 gauge x 1/4" needle RxNorm: 1 test Miscellaneous daily 04/24/2017 07/22/2017 In active E11.65 use with sudeep venlafaxine ER 150 m g tablet,extended release 24 hr RxNorm: 558153 1 Tablet(s) PO daily 04/24/2017 10/10/2017 Inactive cyanocobalamin (vit B-12) 1,000 mcg/mL injection solution RxNorm: 384956 1 Milliliter(s) Inj QW -BIW 04/24/2017 04/23/2017 Inactive metoprolol succinate ER 50 mg tablet,extended release 24 hr RxNorm: 810414 1 Tablet(s) PO daily 04/24/2017 09/17/2017 Inactive Toudov SoloStar U-30 0 Insulin 300 unit/mL (1.5 mL) subcutaneous pen RxNorm: 5525055 24 Unit(s) SQ QPM 04/24/2017 04/25/2017 Inactive Centrum Silver tablet RxNorm: 1 Tablet(s) PO daily No Start Date Active Novolog U-100 Insuli n aspart 100 unit/mL subcutaneous solution RxNorm: 918208 5 Unit(s) SQ AC No Start Date Active magnesium 250 mg tablet RxNorm: 1 Tablet(s) PO as needed No Start Date Active Probiotic Blend oral RxNorm: 247048 oral No Start Date Active Calcium 600 + D(3) 6 00 mg (1,500 mg)-400 unit tablet RxNorm: 087626 1 Tablet(s) PO as needed No Start Date Active atorvastatin 40 mg t ablet RxNorm: 814358 1 Tablet(s) PO QPM No Start Date 08/01/2017 Inactive Novofine 32 32 gauge x 1/4" needle RxNorm: 1 Miscellaneous daily No Start Date 04/23/2017 Inactive cyanocobalamin (vit B-12) 1,000 mcg/mL injection solution RxNorm: 032470 1 Milliliter(s) Inj No Start Date 04/23/2017 Inactive metoprolol succinate ER 50 mg tablet,extended release 24 hr RxNorm: 703066 1 Tablet(s) PO daily No Start Date 04/23/2017 Inactive lisinopril 5 mg tablet RxNorm: 046589 1 Tablet(s) PO QPM No Start Date 04/23/2017 Inactive Restasis MultiDose 0 .05 % eye drops RxNorm: 314307 Drop(s) ophthalmic (e ye) No Start Date 04/23/2017 Inactive venlafaxine ER 150 m g capsule,extended release 24 hr RxNorm: 759614 1 Capsule(s) PO daily No Start Date 04/23/2017 Inactive Sudeep PadillaoStar U-30 0 Insulin subcutaneous RxNorm: subcutaneous [...] back pain ICD-10: M54.5 ICD-9: 724.2 05/06/2018 Rash and other nonspecific skin eruption ICD-10: R21 ICD-9: 782.1 03/19/2018 Acute recurrent maxillary sinusitis ICD-10: J01.01 ICD-9: 461.0 03/19/2018 Essential (primary) hypertension ICD -10: I10 ICD-9: 401.9 02/01/2018 Type 2 diabetes mellitus with hyperglycemia [...] Visit Effective Dates Notes abdominal pain 05/06/2018 sore throat 03/19/2018 low back and leg pain 02/01/2018 headache 12/13/2017 diabetes mellitus 09/18/2017 gait abnormality 08/23/2017 diabetes mellitus 06/20/2017 continuous blood glucose monitor diabetes mellitus 06/11/2017 diabetes mellitus 06/04/2017 diabetes mellitus 04/24/2017 Results Observation Observation Code Item Item Code Result Date Lipase Xco962 LIPASE 26 U/L 05/06/2018 Comp Metabolic Vko679 NA 140 mEq/L 05/06/2018 Comp Metabolic Nyb015 K 4.5 mEq/L 05/06/2018 Comp Metabolic Tem654 CL 109 mEq/L 05/06/2018 Comp Metabolic Zka388 CO2 24.0 mEq/L 05/06/2018 Comp Metabolic Sha763 AN ION GAP 12 05/06/2018 Comp Metabolic Xps021 GL UCOSE 341 mg/dL 05/06/2018 Comp Metabolic Rbz967 Cr eat 1.6 mg/dL 05/06/2018 Comp Metabolic Pgb612 eG FR 34 ml/min/1.73m2 05/06 Comp Metabolic Vmm769 BUN 39 mg/dL 05/06/2018 Comp Metabolic Ocr059 B/ C Ratio 24.7 Ratio 05/06/2018 Comp Metabolic Dyn845 CA LCIUM 9.1 mg/dL 05/06/2018 Comp Metabolic Zcj658 AL K PHOS 61 U/L 05/06/2018 Comp Metabolic Ptp042 T(SGOT) 21 U/L 05/06/2018 Comp Metabolic Uww246 AL T(SGPT) 28 U/L 05/06/2018 Comp Metabolic Bje377 BI LI T 0.3 mg/dL 05/06/2018 Comp Metabolic Kso681 AL BUMIN 3.8 g/dL 05/06/2018 Comp Metabolic Pqx808 TP RO 6.1 g/dL 05/06/2018 Comp Metabolic Gmn425 GL OB 2.4 g/dL 05/06/2018 Comp Metabolic Dtx272 A/ G Ratio 1.6 Ratio 05/06/2018 Comp Metabolic Bri024 Os mo 302 mOsmo 05/06/2018 Amylase Ord34 AMYLASE 48 U/L 05/06/2018 Lipid Ord30 CHOL 171 mg/dL 12/13/2017 Lipid Ord30 HDL 64.0 mg/dl 12/13/2017 Lipid Ord30 TRIG 89 mg/dL 12/13/2017 Lipid Ord30 LDL 89 mg/dL 12/13/2017 Lipid Ord30 C/HDL 2.7 Ratio 12/13/2017 Comp Metabolic Pbw954 NA 140 mEq/L 12/13/2017 Comp Metabolic Xbo603 K 4.4 mEq/L 12/13/2017 Comp Metabolic Odq011 CL 107 mEq/L 12/13/2017 Comp Metabolic Bek452 CO2 23.0 mEq/L 12/13/2017 Comp Metabolic Pid947 AN ION GAP 14 12/13/2017 Comp Metabolic Yuy560 GL UCOSE 179 mg/dL 12/13/2017 Comp Metabolic Mwu886 Cr eat 1.7 mg/dL 12/13/2017 Comp Metabolic Yxv782 eG FR 31 ml/min/1.73m2 12/13 Comp Metabolic Hoc579 BUN 40 mg/dL 12/13/2017 Comp Metabolic Gdr946 B/ C Ratio 23.3 Ratio 12/13/2017 Comp Metabolic Myf427 CA LCIUM 10.3 mg/dL 12/13/2017 Comp Metabolic Sdj188 AL K PHOS 54 U/L 12/13/2017 Comp Metabolic Mee871 T(SGOT) 41 U/L 12/13/2017 Comp Metabolic Ymy577 AL T(SGPT) 44 U/L 12/13/2017 Comp Metabolic Gcu566 BI LI T 0.4 mg/dL 12/13/2017 Comp Metabolic Lzk545 AL BUMIN 4.9 g/dL 12/13/2017 Comp Metabolic Tii004 TP RO 7.7 g/dL 12/13/2017 Comp Metabolic Ygk111 GL OB 2.8 g/dL 12/13/2017 Comp Metabolic Fte920 A/ G Ratio 1.8 Ratio 12/13/2017 Comp Metabolic Uju831 Os mo 294 mOsmo 12/13/2017 Tsh Ord6 TSH (3rd IS) 2.56 uIU/mL 12/13/2017 %Hba1C Yut654 % HbA1c 51585-2 9.6 % 12/13/2017 %Hba1C Xxv692 Gluc Ave 229 mg/dL 12/13/2017 Cbc With [...] 32.0 pg 12/13/2017 Cbc With Differential Ord2 Hickman% 8.0 % 12/13/2017 Cbc With Differential Ord2 [...] 1.44 K/ul 12/13/2017 Cbc With Differential Ord2 Hickman ABS# 0.5 K/ul 12/13/2017 Cbc With Differential Ord2 Eos ABS# 0.1 K/ul 12/13/2017 Cbc With Differential Ord2 Baso ABS# 0.0 K/ul 12/13/2017 %Hba1C Cyf669 % HbA1c 89027-8 13.1 % 04/24/2017 %Hba1C Nmf849 Gluc Ave 329 mg/dL 04/24/2017 Cbc With [...] 32.0 pg 04/24/2017 Cbc With Differential Ord2 Hickman% 11.0 % 04/24/2017 Cbc With Differential Ord2 [...] 2.39 K/ul 04/24/2017 Cbc With Differential Ord2 Hickman ABS# 0.8 K/ul 04/24/2017 Cbc With Differential Ord2 Eos ABS# 0.1 K/ul 04/24/2017 Cbc With Differential Ord2 Baso ABS# 0.0 K/ul 04/24/2017 Comp Metabolic Hqq909 NA 142 mEq/L 04/24/2017 Comp Metabolic Axt888 K 3.8 mEq/L 04/24/2017 Comp Metabolic Xry531 CL 105 mEq/L 04/24/2017 Comp Metabolic Vch488 CO2 27.0 mEq/L 04/24/2017 Comp Metabolic Yqh364 AN ION GAP 14 04/24/2017 Comp Metabolic Bbs770 GL UCOSE 203 mg/dL 04/24/2017 Comp Metabolic Fbb145 Cr eat 1.9 mg/dL 04/24/2017 Comp Metabolic Gol635 eG FR 28 ml/min/1.73m2 04/24 Comp Metabolic Swx051 BUN 26 mg/dL 04/24/2017 Comp Metabolic Yak433 B/ C Ratio 13.6 Ratio 04/24/2017 Comp Metabolic Rdh535 CA LCIUM 9.9 mg/dL 04/24/2017 Comp Metabolic Fvb029 AL K PHOS 79 U/L 04/24/2017 Comp Metabolic Nqv442 T(SGOT) 25 U/L 04/24/2017 Comp Metabolic Jqs415 AL T(SGPT) 36 U/L 04/24/2017 Comp Metabolic Qmz746 BI LI T 0.3 mg/dL 04/24/2017 Comp Metabolic Lwu491 AL BUMIN 4.5 g/dL 04/24/2017 Comp Metabolic Mlo287 TP RO 6.9 g/dL 04/24/2017 Comp Metabolic Psn087 GL OB 2.5 g/dL 04/24/2017 Comp Metabolic Yvk377 A/ G Ratio 1.8 Ratio 04/24/2017 Comp Metabolic Ldy058 Os mo 294 mOsmo 04/24/2017 Review of [...] Endocrine No dry or coarse skin 05/06/2018 Constitutional recent illness 03/19/2018 Constitutional No anorexia [...] shoulder due to pain Full Exam - ENT Constitutional general appearance [...] accomodation 12/13/2017 None Full Exam - General 1995 Ears/Nose/Throat otoscopic exam Overall: external auditory canals [...] Date URINALYSIS NONAUTO W /O SCOPE CPT-4: 12986 05/06/2018 GLUC MONITOR CONT PH YS I&R CPT-4: 71055 09/18/2017 GLUCOSE MONITORING CONT CPT-4: 50141 06/20/2017 Vital Signs Date Vital 05/06/2018 Blood Pressure 1: 128/86 Code: 8480-6 BMI: 20.8 Code: 14755-3 Heart Rate 1: 96 bpm Height: 5'6" SpO2: 96% Weight: 129 lbs 03/19/2018 Blood Pressure 1: 142/84 Code: 8480-6 BMI: 20.5 Code: 19446-6 Heart Rate 1: 88 bpm Height: 5'6" SpO2: 98% Temperature: 36.6 (C ) / 97.9 (F) Weight: 129 lbs 02/01/2018 Blood Pressure 1: 110/52 Code: 8480-6 BMI: 19.9 Code: 77945-3 Height: 5'6" Weight: 125 lbs 12/13/2017 Blood Pressure 1: 140/80 Code: 8480-6 BMI: 19.9 Code: 73327-6 Heart Rate 1: 72 bpm Height: 5'6" SpO2: 95% Weight: 125 lbs 09/18/2017 Blood Pressure 1: 126/82 Code: 8480-6 BMI: 20.0 Code: 28946-8 Heart Rate 1: 103 bpm Height: 5'6" SpO2: 98% Weight: 126 lbs 08/23/2017 Blood Pressure 1: 118/62 Code: 8480-6 Heart Rate 1: 110 bpm Height: 5'6" SpO2: 95% Temperature: 37.1 (C ) / 98.7 (F) 06/20/2017 Heigh t: Weight: 06/11/2017 Blood Pressure 1: 142/76 Code: 8480-6 BMI: 21.3 Code: 63625-7 Heart Rate 1: 102 bpm Height: 5'6" SpO2: 97% Weight: 134 lbs 06/04/2017 Blood Pressure 1: 160/84 Code: 8480-6 BMI: 20.8 Code: 92944-1 Heart Rate 1: 87 bpm Height: 5'6" SpO2: 97% Weight: 131 lbs 04/24/2017 Blood Pressure 1: 132/80 Code: 8480-6 BMI: 20.8 Code: 88088-3 Heart Rate 1: 84 bpm Height: 5'6" [...] no known asso ciated factors 05/06/2018 None Quality acute 03/19/2018 None Pertinent Findings [...] Encounters Encounter Performer Loca tion Codes Date ([id number]) 99029 EST. P ATIENT, LEVEL IV Diagnosis: Low back pain[ICD10: M54.5] Diagnosis: Left upper quadrant pain[ICD10: R10.12] Diagnosis: Pain in left hip[ICD10: M25.552] Diagnosis: Pain in left shoulder[ICD10: M25.512] Diagnosis: Repeated falls[ICD10: R29.6] Diagnosis: Unsteadiness on feet[ICD10: R26.81] Diagnosis: Chronic kidney disease, stage 3 (moderate)[ICD10: N18.3] Ana Man MD, [facility] CPT-4: 05604 05/06/2018 ([id number]) 07772 EST. P ATIENT, LEVEL III Diagnosis: Acute recurrent maxillary sinusitis[ICD10: J01.01] Diagnosis: Rash and other nonspecific skin eruption[ICD10: R21] Ana Man MD, [facility] CPT-4: 08298 03/19/2018 ([id number]) 32359 EST. P ATIENT, LEVEL IV Diagnosis: Acute recurrent maxillary sinusitis[ICD10: J01.01] Diagnosis: Low back pain[ICD10: M54.5] Diagnosis: Unsteadiness on feet[ICD10: R26.81] Diagnosis: Essential (primary) hypertension[ICD10: I10] Ana Man MD, [facility] CPT-4: 11982 02/01/2018 ([id number]) 05612 EST. P ATIENT, LEVEL IV Diagnosis: Type 2 diabetes mellitus with hyperglycemia[ICD10: E11.65] Diagnosis: Essential (primary) hypertension[ICD10: I10] Diagnosis: Other fatigue[ICD10: R53.83] Maude Man MD, [facility] CPT-4: 13340 12/13/2017 ([id number]) 17849 EST. P ATIENT, LEVEL IV Diagnosis: Type 2 diabetes mellitus with hyperglycemia[ICD10: E11.65] Diagnosis: Essential (primary) hypertension[ICD10: I10] Diagnosis: Major depressive disorder, recurrent, in partial remission[ICD10: F33.41] Maude Man MD, [facility] CPT-4: 72659 09/18/2017 ([id number]) 62558 EST. P ATIENT, LEVEL IV Diagnosis: Pouchitis[ICD10: K91.850] Diagnosis: Other fatigue[ICD10: R53.83] Diagnosis: Type 2 diabetes mellitus with hyperglycemia[ICD10: E11.65] Diagnosis: Essential (primary) hypertension[ICD10: I10] Diagnosis: Orthostatic hypotension[ICD10: I95.1] Maude Man MD, [facility] CPT-4: 76103 08/23/2017 ([id number]) Miscellaneou s no charge Diagnosis: Type 2 diabetes mellitus with hyperglycemia[ICD10: E11.65] Shae Man MD, [facility] CPT-4: 64216 06/25/2017 ([id number]) 20358 EST. P ATIENT, LEVEL IV Diagnosis: Type 2 diabetes mellitus with hyperglycemia[ICD10: E11.65] Maude Man MD, [facility] CPT-4: 46440 06/11/2017 ([id number]) 62232 EST. P ATIENT, LEVEL IV Diagnosis: Type 2 diabetes mellitus with hyperglycemia[ICD10: E11.65] Diagnosis: Essential (primary) hypertension[ICD10: I10] Diagnosis: Acute recurrent maxillary sinusitis[ICD10: J01.01] Ana Man MD, [facility] CPT-4: 70544 06/04/2017 OFFICE VISIT, [facility] - LEVEL 4 Diagnosis: Left lower quadrant pain[ICD10: R10.32] Diagnosis: Other ulcerative colitis with unspecified complications[ICD10: K51.819] Diagnosis: Essential (primary) hypertension[ICD10: I10] Diagnosis: Type 2 diabetes mellitus without complications[ICD10: E11.9] Diagnosis: Major depressive disorder, recurrent, in partial remission[ICD10: F33.41] Diagnosis: Melena[ICD10: K92.1] Ana Man MD, [facility] CPT-4: 13687 04/24/2017 Plan of Care Planned Activity Notes C odes Status Date Visit Plan: Abdominal pain -UA nega tive-check [...] of diabetes control and adequate hydration 05/06/2018 Patient Education: Patient Medication Summary Completed 05/06/2018 Patient Education: Back Pain Completed 05/06/2018 Appointment: Shae Guerrero WPtel: [facility] (30 min) Complex 04/30/2018 Visit Plan: Sinusitis - Pt has [...] any worse 03/19/2018 Appointment: Ana Burrell WPtel: [phone] (30 min) Complex 03/19/2018 Patient Education: Patient [...] next appt 02/01/2018 Appointment: Ana Burrell WPtel: [address] [place], [place] [phone] (30 min) Complex 02/01/2018 Patient Education: Patient Medication Summary Completed 02/01/2018 Patient Education: Back Pain Completed 02/01/2018 Patient Education: Hypertension Completed 02/01/2018 Appointment: Maude Man WPtel: [facility] [address] (15 min) Moderate 01/24/2018 Referral: Megha [...] made. 12/13/2017 [facility]ment[phone] [facility] (15 min) Moderate 12/13/2017 Patient Education: Patient Medication Summary Completed 12/13/2017 Patient Education: Diabetes Completed 12/13/2017 Patient Education: Hypertension Completed 12/13/2017 Care Plan: Referral Order SNOMED-CT : [id number] Pending 12/13/2017 App[facility]ment: [phone] [facility] (15 min) Moderate 11/26/2017 Visit Plan: Diabetes [...] through 09/18/2017 Appointment: [facility]ude [facility]el[facility] [phone] [facility] (15 min) Moderate 09/18/2017 Patient Education: Patient Medication Summary Completed 09/18/2017 Referral: External, Ordering Provider Patient informed. Referral info faxed. Completed 09/17/2017 Appointment: [facility]ude [facility]Ptel[facility] [phone] [facility] [place] (15 min) Moderate 09/06/2017 Visit [...] Dr. Gracia. 08/23/2017 Appointment: [facility]ude [facility]el[facility] [phone] [facility] [place] (15 min) Moderate 08/23/2017 Patient Education: Patient Medication Summary Completed 08/23/2017 Care Plan: Comp Metabolic Cancelled 08/23/2017 Care Plan: Cbc With Differential Cancelled 08/23/2017 Care Plan: %Hba1C NATTY C : 67013-0 Cancelled 08/23/2017 Care Plan: Magnesium Cancelled 08/23/2017 Care Plan: Referral Order SNOMED-CT : [id number] Pending 08/23/2017 App[facility]ment: [facility]ude [facility]el[facility] [phone] [facility] [place] (15 min) Moderate 08/13/2017 Visit Plan: CGM removed - pt tolera jomar procedure well - no changes at this time. 06/25/2017 Patient Education: Patient Medication Summary Completed 06/25/2017 Appointment: [facility]ude [facility]el[facility] [phone] [facility] [place] (15 min) Moderate 06/21/2017 Visit Plan: [...] glucose control. 06/20/2017 Appointment: Shae Guerrero WPtel: [facility] ([facility] min) [facility] 06/20/2017 Patient Education: Patient Medication Summary Completed 06/20/2017 Visit Plan: Diabetes Mellitus - [facility] ontrolled - per recent FSBS reports. I [...] Summary Completed 06/04/2017 Appointment: Ana Burrell WPtel: [address] [place], [place] [phone] (30 min) Complex 05/31/2017 Appointment: Indra Ana WPtel: [address] [place], [place] [phone] (30 min) Complex 05/29/2017 Appointment: Indra Ana WPtel: [address] [place], [place] [phone] (30 min) Complex 05/24/2017 Visit Plan: Left [...] current medications. 04/24/2017 Appointment: Ana Burrell WPtel: [address] [place], [place] [phone] [address] New Patient 04/24/2017 Patient Education: Patient Medication Summary Completed 04/24/2017 Appointment: Shae Guerrero WPtel: [address] [place], [place] [id number] New Patient 04/20/2017 Referral: External, [...]
--- OUTSIDE RECORDS SUMMARY | 2019-01-29 06:15 | XMS REPORT | CCD ---
Author Author Baylee Burrell Organization Maude Man MD, [facility] Address [address] [place] [address] Phone Care Team Providers Care Document Management Analyst Name Role Phone PP Unavailable CCM Unavailable Summary Purpose Interface Exchange Insurance Providers Payer name Policy type / Coverage type Covered democrat ID Effective Begin Date Effective End Date WPS Medicare Part B Blue Cross/Blue Shield [id number] Unknown Blue Cross Blue Shield [facility] Tir[place] e Cross/Blue Shield [id number] Un known Blue Cross/Blue Shield [id number] Unknown Family history Sister Diagnosis Age At [...] 1 04/24/2017 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 04/24/[address]: 666676138 Never smoker 04/24/[address]: 012174128 Never drinks alcohol 04/24/2017 Allergies, Adverse Reactions, Alerts Substance Reaction Codes Entered Date Inactivated Date Status Levaquin RxNorm: 54148 04/24/2017 No Inactive Date Active Past Medical [...] Date Stop Date Sta tus Fill Instructions doxycycline hyclate 100 mg tablet RxNorm: 4011386 1 Tablet(s) PO BID 03/19/2018 03/25/2018 Active mupirocin 2 % topica l ointment RxNorm: 661383 1 Application TOP BID 03/19/2018 03/28/2018 Active Basaglar KwikPen U-1 00 Insulin 100 unit/mL (3 mL) subcutaneous RxNorm: 3214960 45 Unit(s) SQ daily 03/06/2018 10/01/2018 Active Basaglar KwikPen U-1 00 Insulin 100 unit/mL (3 mL) subcutaneous RxNorm: 3163383 45 Unit(s) SQ daily 03/06/2018 03/05/2018 Inactive Toujeo SoloStar U-30 0 Insulin 300 unit/mL (1.5 mL) subcutaneous pen RxNorm: 3690428 Unit(s) INJECT 45 UNITS UNDER THE SKIN DAILY 02/22/2018 03/05/2018 Inactive 30 d ay supply Toujeo SoloStar U-30 0 Insulin 300 unit/mL (1.5 mL) subcutaneous pen RxNorm: 9398559 INJECT 40 UNITS UNDER THE SKIN DAILY 02/21/2018 02/21/2018 Inactive Keflex 500 mg capsule RxNorm: 427969 1 Capsule(s) PO TID 02/01/2018 02/07/2018 Inactive Toujeo SoloStar U-30 0 Insulin 300 unit/mL (1.5 mL) subcutaneous pen RxNorm: 7461093 45 Unit(s) SQ daily 12/26/2017 No Stop Date Active atorvastatin 40 mg t ablet RxNorm: 279314 Tablet(s) TAKE ONE-REA LF TABLET BY MOUTH EVERY EVENING 12/26/2017 No Stop Date Active Restasis 0.05 % eye drops in a dropperette RxNorm: 131285 INSTILL ONE DROP IN E ACH EYE EVERY 12 HOURS 12/24/2017 04/22/2018 Active atorvastatin 40 mg t ablet RxNorm: 970039 TAKE ONE TABLET BY MO [facility] [place] EVERY EVENING 12/17/2017 12/25/2017 In active venlafaxine ER 150 m g tablet,extended release 24 hr RxNorm: 578247 TAKE ONE CAPSULE BY MOUTH DAILY 10/11/2017 07/07/2018 Active metoprolol succinate ER 50 mg tablet,extended release 24 hr RxNorm: 092912 TAKE ONE TABLET BY MOUTH DAILY 10/11/2017 07/07/2018 Active atorvastatin 40 mg t ablet RxNorm: 574133 TAKE ONE TABLET BY MO UTH EVERY EVENING 10/11/2017 12/16/2017 In active metoprolol succinate ER 25 mg tablet,extended release 24 hr RxNorm: 905504 1/2 Tablet(s) PO daily 09/18/2017 03/16/2018 Inactive metronidazole 500 mg tablet RxNorm: 623339 1 Tablet(s) PO TID 08/23/2017 09/01/2017 Inactive Diflucan 150 mg tablet RxNorm: 039480 1 Tablet(s) PO daily 08/23/2017 09/01/2017 Inactive atorvastatin 40 mg t ablet RxNorm: 937499 1 Tablet(s) PO QPM 08/02/2017 10/10/2017 Inactive Toujeo SoloStar U-30 0 Insulin 300 unit/mL (1.5 mL) subcutaneous pen RxNorm: 7945458 40 Unit(s) SQ daily 07/30/2017 12/25/2017 Inactive Novofine 32 32 gauge x 1/4" needle RxNorm: USE TO TEST BLOOD SUGAR ONC E DAILY 07/26/2017 04/16/2019 Ac tive Toujeo SoloStar U-30 0 Insulin 300 unit/mL (1.5 mL) subcutaneous pen RxNorm: 6211037 INJECT 24 UNITS UNDER THE SKIN EVERY EVENING 07/26/2017 07/29/2017 Inactive Apidra U-100 Insulin 100 unit/mL subcutaneous solution RxNorm: 839745 5 Unit(s) SQ AC 06/06/2017 06/06/2017 Inactive start with 5 units with breakfast -call with blood sugars in 1 week Keflex 500 mg capsule RxNorm: 937352 1 Capsule(s) PO TID 06/04/2017 06/10/2017 Inactive Apidra U-100 Insulin 100 unit/mL subcutaneous solution RxNorm: 620686 5 Unit(s) SQ AC 06/04/2017 06/05/2017 Inactive start with 5 units with breakfast -call with blood sugars in 1 week Restasis 0.05 % eye drops in a dropperette RxNorm: 734736 1 gtts ophthalmic (ey e) Q12H 06/04/2017 07/03/2017 Inactive Toujeo SoloStar U-30 0 Insulin 300 unit/mL (1.5 mL) subcutaneous pen RxNorm: 2939259 28 Unit(s) SQ QPM x1 week, then 32 units daily. 04/26/2017 08/28/2017 Inactive Restasis MultiDose 0 .05 % eye drops RxNorm: 618910 1 Drop(s) ophthalmic (eye) daily - BID 04/24/2017 No Stop Date Active cyanocobalamin (vit B-12) 1,000 mcg/mL injection solution RxNorm: 300897 1 Milliliter(s) Inj QW -BIW 04/24/2017 07/22/2017 Inactive disp with syringes please Toujeo SoloStar U-30 0 Insulin 300 unit/mL (1.5 mL) subcutaneous pen RxNorm: 2627252 24 Unit(s) SQ QPM 04/24/2017 04/23/2017 Inactive Novofine 32 32 gauge x 1/4" needle RxNorm: 1 test Miscellaneous daily 04/24/2017 07/22/2017 In active E11.65 use with westley venlafaxine ER 150 m g tablet,extended release 24 hr RxNorm: 390948 1 Tablet(s) PO daily 04/24/2017 10/10/2017 Inactive cyanocobalamin (vit B-12) 1,000 mcg/mL injection solution RxNorm: 639474 1 Milliliter(s) Inj QW -BIW 04/24/2017 04/23/2017 Inactive metoprolol succinate ER 50 mg tablet,extended release 24 hr RxNorm: 256243 1 Tablet(s) PO daily 04/24/2017 09/17/2017 Inactive Toujeo SoloStar U-30 0 Insulin 300 unit/mL (1.5 mL) subcutaneous pen RxNorm: 7680732 24 Unit(s) SQ QPM 04/24/2017 04/25/2017 Inactive Centrum Silver tablet RxNorm: 1 Tablet(s) PO daily No Start Date Active Novolog U-100 Insuli n aspart 100 unit/mL subcutaneous solution RxNorm: 596667 5 Unit(s) SQ AC No Start Date Active magnesium 250 mg tablet RxNorm: 1 Tablet(s) PO as needed No Start Date Active Probiotic Blend oral RxNorm: 592199 oral No Start Date Active Calcium 600 + D(3) 6 00 mg (1,500 mg)-400 unit tablet RxNorm: 436635 1 Tablet(s) PO as needed No Start Date Active atorvastatin 40 mg t ablet RxNorm: 514287 1 Tablet(s) PO QPM No Start Date 08/01/2017 Inactive Novofine 32 32 gauge x 1/4" needle RxNorm: 1 Miscellaneous daily No Start Date 04/23/2017 Inactive cyanocobalamin (vit B-12) 1,000 mcg/mL injection solution RxNorm: 676915 1 Milliliter(s) Inj No Start Date 04/23/2017 Inactive metoprolol succinate ER 50 mg tablet,extended release 24 hr RxNorm: 259715 1 Tablet(s) PO daily No Start Date 04/23/2017 Inactive lisinopril 5 mg tablet RxNorm: 050202 1 Tablet(s) PO QPM No Start Date 04/23/2017 Inactive Restasis MultiDose 0 .05 % eye drops RxNorm: 826358 Drop(s) ophthalmic (e ye) No Start Date 04/23/2017 Inactive venlafaxine ER 150 m g capsule,extended release 24 hr RxNorm: 412681 1 Capsule(s) PO daily No Start Date [...] Ord30 C/HDL 2.7 Ratio 12/13/2017 Comp Metabolic Vme504 NA 140 mEq/L 12/13/2017 Comp Metabolic Tkh865 K 4.4 mEq/L 12/13/2017 Comp Metabolic Eaf723 CL 107 mEq/L 12/13/2017 Comp Metabolic Xlh879 CO2 23.0 mEq/L 12/13/2017 Comp Metabolic Lrl624 AN ION GAP 14 12/13/2017 Comp Metabolic Ggv192 GL UCOSE 179 mg/dL 12/13/2017 Comp Metabolic Xps949 Cr eat 1.7 mg/dL 12/13/2017 Comp Metabolic Mtg235 eG FR 31 ml/min/1.73m2 12/13 Comp Metabolic Qjv909 BUN 40 mg/dL 12/13/2017 Comp Metabolic Wce608 B/ C Ratio 23.3 Ratio 12/13/2017 Comp Metabolic Tak410 CA LCIUM 10.3 mg/dL 12/13/2017 Comp Metabolic Cga246 AL K PHOS 54 U/L 12/13/2017 Comp Metabolic Owv261 T(SGOT) 41 U/L 12/13/2017 Comp Metabolic Bzr988 AL T(SGPT) 44 U/L 12/13/2017 Comp Metabolic Qox631 BI LI T 0.4 mg/dL 12/13/2017 Comp Metabolic Qsi076 AL BUMIN 4.9 g/dL 12/13/2017 Comp Metabolic Qga950 TP RO 7.7 g/dL 12/13/2017 Comp Metabolic Lni861 GL OB 2.8 g/dL 12/13/2017 Comp Metabolic Xiy059 A/ G Ratio 1.8 Ratio 12/13/2017 Comp Metabolic Nlk115 Os mo 294 mOsmo 12/13/2017 Tsh Ord6 TSH (3rd IS) 2.56 uIU/mL 12/13/2017 %Hba1C Vzx818 % HbA1c 97268-2 9.6 % 12/13/2017 %Hba1C Ttw347 Gluc Ave 229 mg/dL 12/13/2017 Cbc With Differential Ord2 WBC 5.84 K/ul 12/13/2017 Cbc With Differential Ord2 RBC 4.15 M/ul 12/13/2017 Cbc With Differential Ord2 HGB 13.3 g/dl 12/13/2017 Cbc With Differential Ord2 Neut% 66.0 % 12/13/2017 Cbc With Differential Ord2 HCT 41.0 % 12/13/2017 Cbc With Differential Ord2 Lymph% 24.7 % 12/13/2017 Cbc With Differential Ord2 MCV 98.8 fl 12/13/2017 Cbc With Differential Ord2 MCH 32.0 pg 12/13/2017 Cbc With Differential Ord2 [place]% 8.0 % 12/13/2017 Cbc With Differential Ord2 MCHC 32.4 pg 12/13/2017 Cbc With Differential Ord2 Eos% 1.0 % 12/13/2017 Cbc With Differential Ord2 PLT 184 K/ul 12/13/2017 Cbc With Differential Ord2 Baso% 0.3 % 12/13/2017 Cbc With Differential Ord2 Neut ABS# 3.85 K/ul 12/13/2017 Cbc With Differential Ord2 RDW 12.6 % 12/13/2017 Cbc With Differential Ord2 Lymph ABS# 1.44 K/ul 12/13/2017 Cbc With Differential Ord2 [place] ABS# 0.5 K/ul 12/13/2017 Cbc With Differential Ord2 Eos ABS# 0.1 K/ul 12/13/2017 Cbc With Differential Ord2 Baso ABS# 0.0 K/ul 12/13/2017 %Hba1C Bhl503 % HbA1c 33676-6 13.1 % 04/24/2017 %Hba1C Zzl841 Gluc Ave 329 mg/dL 04/24/2017 Cbc With [...] 32.0 pg 04/24/2017 Cbc With Differential Ord2 [place]% 11.0 % 04/24/2017 Cbc With Differential Ord2 [...] 2.39 K/ul 04/24/2017 Cbc With Differential Ord2 [place] ABS# 0.8 K/ul 04/24/2017 Cbc With Differential Ord2 Eos ABS# 0.1 K/ul 04/24/2017 Cbc With Differential Ord2 Baso ABS# 0.0 K/ul 04/24/2017 Comp Metabolic Boy883 NA 142 mEq/L 04/24/2017 Comp Metabolic Xab574 K 3.8 mEq/L 04/24/2017 Comp Metabolic Zbt083 CL 105 mEq/L 04/24/2017 Comp Metabolic Xfh095 CO2 27.0 mEq/L 04/24/2017 Comp Metabolic Kch746 AN ION GAP 14 04/24/2017 Comp Metabolic Vys653 GL UCOSE 203 mg/dL 04/24/2017 Comp Metabolic Xtw862 Cr eat 1.9 mg/dL 04/24/2017 Comp Metabolic Aic681 eG FR 28 ml/min/1.73m2 04/24 Comp Metabolic Iip752 BUN 26 mg/dL 04/24/2017 Comp Metabolic Qln515 B/ C Ratio 13.6 Ratio 04/24/2017 Comp Metabolic Ucn513 CA LCIUM 9.9 mg/dL 04/24/2017 Comp Metabolic Ikr122 AL K PHOS 79 U/L 04/24/2017 Comp Metabolic Kpt854 T(SGOT) 25 U/L 04/24/2017 Comp Metabolic Upg007 AL T(SGPT) 36 U/L 04/24/2017 Comp Metabolic Dpz961 BI LI T 0.3 mg/dL 04/24/2017 Comp Metabolic Bmj986 AL BUMIN 4.5 g/dL 04/24/2017 Comp Metabolic Cxl847 TP RO 6.9 g/dL 04/24/2017 Comp Metabolic Mzg933 GL OB 2.5 g/dL 04/24/2017 Comp Metabolic Uvi033 A/ G Ratio 1.8 Ratio 04/24/2017 Comp Metabolic Vyn913 Os mo 294 mOsmo 04/24/2017 Review of [...] GLUC MONITOR CONT PH YS I&R CPT-4: 66110 09/18/2017 GLUCOSE MONITORING CONT CPT-4: 26847 06/20/2017 Vital Signs Date Vital 03/19/2018 Blood Pressure 1: 142/84 Code: 8480-6 BMI: 20.5 Code: 93378-1 Heart Rate 1: 88 bpm Height: 5'6" SpO2: 98% Temperature: 36.6 (C ) / 97.9 (F) Weight: 129 lbs 02/01/2018 Blood Pressure 1: 110/52 Code: 8480-6 BMI: 19.9 Code: 92067-8 Height: 5'6" Weight: 125 lbs 12/13/2017 Blood Pressure 1: 140/80 Code: 8480-6 BMI: 19.9 Code: 34176-2 Heart Rate 1: 72 bpm Height: 5'6" SpO2: 95% Weight: 125 lbs 09/18/2017 Blood Pressure 1: 126/82 Code: 8480-6 BMI: 20.0 Code: 09988-7 Heart Rate 1: 103 bpm Height: 5'6" SpO2: 98% Weight: 126 lbs 08/23/2017 Blood Pressure 1: 118/62 Code: 8480-6 Heart Rate 1: 110 bpm Height: 5'6" SpO2: 95% Temperature: 37.1 (C ) / 98.7 (F) 06/20/2017 Heigh t: Weight: 06/11/2017 Blood Pressure 1: 142/76 Code: 8480-6 BMI: 21.3 Code: 95692-3 Heart Rate 1: 102 bpm Height: 5'6" SpO2: 97% Weight: 134 lbs 06/04/2017 Blood Pressure 1: 160/84 Code: 8480-6 BMI: 20.8 Code: 25040-4 Heart Rate 1: 87 bpm Height: 5'6" SpO2: 97% Weight: 131 lbs 04/24/2017 Blood Pressure 1: 132/80 Code: 8480-6 BMI: 20.8 Code: 07000-3 Heart Rate 1: 84 bpm Height: 5'6" [...] Encounters Encounter Performer Loca tion Codes Date ([id number]) 50070 EST. P ATIENT, LEVEL III Diagnosis: Acute recurrent maxillary sinusitis[ICD10: J01.01] Diagnosis: Rash and other nonspecific skin eruption[ICD10: R21] Ana Man MD, [facility] CPT-4: 42773 03/19/2018 ([id number]) 88010 EST. P ATIENT, LEVEL IV Diagnosis: Acute recurrent maxillary sinusitis[ICD10: J01.01] Diagnosis: Low back pain[ICD10: M54.5] Diagnosis: Unsteadiness on feet[ICD10: R26.81] Diagnosis: Essential (primary) hypertension[ICD10: I10] Ana Man MD, [facility] CPT-4: 90573 02/01/2018 ([id number]) 69683 EST. P ATIENT, LEVEL IV Diagnosis: Type 2 diabetes mellitus with hyperglycemia[ICD10: E11.65] Diagnosis: Essential (primary) hypertension[ICD10: I10] Diagnosis: Other fatigue[ICD10: R53.83] Maude Man MD, [facility] CPT-4: 62564 12/13/2017 ([id number]) 07363 EST. 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 P ATIENT, LEVEL IV Diagnosis: Pouchitis[ICD10: K91.850] Diagnosis: Other fatigue[ICD10: R53.83] Diagnosis: Type 2 diabetes mellitus with hyperglycemia[ICD10: E11.65] Diagnosis: Essential (primary) hypertension[ICD10: I10] Diagnosis: Orthostatic hypotension[ICD10: I95.1] Maude Man MD, [facility] CPT-4: 74956 08/23/2017 ([id number]) Miscellaneou s no charge Diagnosis: Type 2 diabetes mellitus with hyperglycemia[ICD10: E11.65] [facility] CPT-4: 18105 06/25/2017 ([id number]) 17157 EST. P ATIENT, LEVEL IV Diagnosis: Type 2 diabetes mellitus with hyperglycemia[ICD10: E11.65] Maude Man MD, [facility] CPT-4: 36245 06/11/2017 ([id number]) 19414 EST. P ATIENT, LEVEL IV Diagnosis: Type 2 diabetes mellitus with hyperglycemia[ICD10: E11.65] Diagnosis: Essential (primary) hypertension[ICD10: I10] Diagnosis: Acute recurrent maxillary sinusitis[ICD10: J01.01] Ana Man MD, [facility] CPT-4: 47336 06/04/2017 OFFICE VISIT, NEW - LEVEL 4 Diagnosis: Left lower quadrant pain[ICD10: R10.32] Diagnosis: Other ulcerative colitis with unspecified complications[ICD10: K51.819] Diagnosis: Essential (primary) hypertension[ICD10: I10] Diagnosis: Type 2 diabetes mellitus without complications[ICD10: E11.9] Diagnosis: Major depressive disorder, recurrent, in partial remission[ICD10: F33.41] Diagnosis: Melena[ICD10: K92.1] Ana Man MD, [facility] CPT-4: 27190 04/24/2017 Plan of Care Planned Activity Notes C odes Status Date Visit Plan: Sinusitis - Pt has acut e infection - pain in face, maxillary region, Pt informed to use decongestant, RX given to patient, sinus rinses also recommended. Call if symptoms do not show improvement. Rash - culture today in the office -use mupirocin ointment as directed-call if rash does not resolve completely or of if any worse 03/19/2018 Appointment: Ana Burrell WPtel: [address] [place], [place] [phone] (30 min) [facility] 03/19/2018 Patient Education: Patient Medication Summary Completed [...] bring readings to next appt 02/01/2018 Appointment: Indra Ana WPtel: [phone] [phone] [place] (30 min) Complex 02/01/2018 Patient Education: Patient Medication Summary Completed 02/01/2018 Patient Education: Back Pain Completed 02/01/2018 Patient Education: Hypertension Completed 02/01/2018 Appointment: Maude Man WPtel: [phone] [facility] (15 min) Moderate 01/24/2018 Referral: Megha [...] Gracia. Referral has been made. 12/13/2017 Appointment: Maued Man WPtel: [phone] [facility] [place] (15 min) Moderate 12/13/2017 Patient Education: Patient Medication Summary Completed 12/13/2017 Patient Education: Diabetes Completed 12/13/2017 Patient Education: Hypertension Completed 12/13/2017 Care Plan: Referral Order SNOMED-CT : [id number] Pending 12/13/2017 [facility] [phone] [facility] [place] ([facility] [place]) Moderate 11/26/2017 Visit Plan: Diabetes Mellitus - [facility] ontrolled - per recent FSBS reports. I [...] followed through 09/18/2017 App[facility] [phone] [facility] [place] (15 min) Moderate 09/18/2017 Patient Education: Patient Medication Summary Completed 09/18/2017 Referral: External, Ordering Provider Patient informed. Referral info faxed. Completed 09/17/2017 Appointment: Maude Man WPtel: [phone] [facility] (15 min) Moderate 09/06/2017 Visit Plan: Pouchitis [...] Dr. Gracia. 08/23/2017 Appointment: Maude Man WPtel: [facility] (15 min) Moderate 08/23/2017 Patient Education: Patient Medication Summary Completed 08/23/2017 Care Plan: Comp Metabolic Cancelled 08/23/2017 Care Plan: Cbc With Differential Cancelled 08/23/2017 Care Plan: %Hba1C LOIN C : 50851-8 Cancelled 08/23/2017 Care Plan: Magnesium Cancelled 08/23/2017 Care Plan: Referral Order SNOMED-CT : 287214239 Pending 08/23/2017 Appointment: Maude Man WPtel: [facility] [place] (15 min) Moderate 08/13/2017 Visit Plan: CGM removed - pt tolera jomar procedure well - no changes at this time. 06/25/2017 Patient Education: Patient Medication Summary Completed 06/25/2017 Appointment: Maude Man WPtel: [facility] [place] (15 min) Moderate 06/21/2017 Visit Plan: [...] glucose control. 06/20/2017 Appointment: Shae Guerrero WPtel: [address] [place], [place] [address] (30 min) [facility] 06/20/2017 Patient Education: Patient Medication [...] Completed 06/04/2017 [phone] [phone] (30 min) Complex 05/31/2017 [facility] [phone] [phone] (30 min) Complex 05/29/2017 [facility]: [facility] [phone] [phone] (30 min) Complex 05/24/2017 Visit Plan: Left [...] current medications. 04/24/2017 [facility] [phone] [facility] New Patient 04/24/2017 Patient Education: Patient Medication Summary Completed 04/24/2017 Appointment: Sh[facility] Guerrero [facility]el[facility] [phone] [facility] New Patient 04/20/2017 Referral: External, Ordering Provider [...] change in current medications. Physical therapy asad jack Tucker Manisha xray lumbar spine keflex for sinus [...]
--- OUTSIDE RECORDS SUMMARY | 2019-01-29 06:15 | XMS REPORT | CCD ---
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 [employer] Name Role Phone PP Unavailable CCM Unavailable Summary Purpose Interface Exchange Insurance Providers Payer name Policy type / Coverage type Covered democrat ID Effective Begin Date Effective End Date WPS Medicare Part B Blue Cross/Blue Shield [id number] Unknown Blue Cross Blue Shield [facility] Tir[place] e Cross/Blue Shield [id number] Un known Blue Cross/Blue Shield [id number] Unknown Family history Sister Diagnosis Age At [...] 1 04/24/2017 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 04/24/[address]: 423570203 Never smoker 04/24/[address]: 370907504 Never drinks alcohol 04/24/2017 Allergies, Adverse Reactions, Alerts Substance Reaction Codes Entered Date Inactivated Date Status Levaquin RxNorm: 92189 04/24/2017 No Inactive Date Active Past Medical [...] Instructions doxycycline hyclate 100 mg tablet RxNorm: 1341693 1 Tablet(s) PO BID 03/19/2018 03/25/2018 Active mupirocin 2 % topica l ointment RxNorm: 583709 1 Application TOP BID 03/19/2018 03/28/2018 Active Basaglar KwikPen U-1 00 Insulin 100 unit/mL (3 mL) subcutaneous RxNorm: 0331171 45 Unit(s) SQ daily 03/06/2018 10/01/2018 Active Basaglar KwikPen U-1 00 Insulin 100 unit/mL (3 mL) subcutaneous RxNorm: 7799638 45 Unit(s) SQ daily 03/06/2018 03/05/2018 Inactive Toujeo SoloStar U-30 0 Insulin 300 unit/mL (1.5 mL) subcutaneous pen RxNorm: 0130119 Unit(s) INJECT 45 UNITS UNDER THE SKIN DAILY 02/22/2018 03/05/2018 Inactive 30 d ay supply Toujeo SoloStar U-30 0 Insulin 300 unit/mL (1.5 mL) subcutaneous pen RxNorm: 0227776 INJECT 40 UNITS UNDER THE SKIN DAILY 02/21/2018 02/21/2018 Inactive Keflex 500 mg capsule RxNorm: 664038 1 Capsule(s) PO TID 02/01/2018 02/07/2018 Inactive Toujeo SoloStar U-30 0 Insulin 300 unit/mL (1.5 mL) subcutaneous pen RxNorm: 3272674 45 Unit(s) SQ daily 12/26/2017 No Stop Date Active atorvastatin 40 mg t ablet RxNorm: 713942 Tablet(s) TAKE ONE-REA LF TABLET BY MOUTH EVERY EVENING 12/26/2017 No Stop Date Active Restasis 0.05 % eye drops in a dropperette RxNorm: 643042 INSTILL ONE DROP IN E ACH EYE EVERY 12 HOURS 12/24/2017 04/22/2018 Active atorvastatin 40 mg t ablet RxNorm: 997215 TAKE ONE TABLET BY MO [facility] EVERY EVENING 12/17/2017 12/25/2017 In active venlafaxine ER 150 m g tablet,extended release 24 hr RxNorm: 649817 TAKE ONE CAPSULE BY MOUTH DAILY 10/11/2017 07/07/2018 Active metoprolol succinate ER 50 mg tablet,extended release 24 hr RxNorm: 764301 TAKE ONE TABLET BY MOUTH DAILY 10/11/2017 07/07/2018 Active atorvastatin 40 mg t ablet RxNorm: 122813 TAKE ONE TABLET BY MO UTH EVERY EVENING 10/11/2017 12/16/2017 In active metoprolol succinate ER 25 mg tablet,extended release 24 hr RxNorm: 995431 1/2 Tablet(s) PO daily 09/18/2017 03/16/2018 Inactive metronidazole 500 mg tablet RxNorm: 402739 1 Tablet(s) PO TID 08/23/2017 09/01/2017 Inactive Diflucan 150 mg tablet RxNorm: 582499 1 Tablet(s) PO daily 08/23/2017 09/01/2017 Inactive atorvastatin 40 mg t ablet RxNorm: 490807 1 Tablet(s) PO QPM 08/02/2017 10/10/2017 Inactive Toujeo SoloStar U-30 0 Insulin 300 unit/mL (1.5 mL) subcutaneous pen RxNorm: 5859875 40 Unit(s) SQ daily 07/30/2017 12/25/2017 Inactive Novofine 32 32 gauge x 1/4" needle RxNorm: USE TO TEST BLOOD SUGAR ONC E DAILY 07/26/2017 04/16/2019 Ac tive Toujeo SoloStar U-30 0 Insulin 300 unit/mL (1.5 mL) subcutaneous pen RxNorm: 0153678 INJECT 24 UNITS UNDER THE SKIN EVERY EVENING 07/26/2017 07/29/2017 Inactive Apidra U-100 Insulin 100 unit/mL subcutaneous solution RxNorm: 683914 5 Unit(s) SQ AC 06/06/2017 06/06/2017 Inactive start with 5 units with breakfast -call with blood sugars in 1 week Keflex 500 mg capsule RxNorm: 501449 1 Capsule(s) PO TID 06/04/2017 06/10/2017 Inactive Apidra U-100 Insulin 100 unit/mL subcutaneous solution RxNorm: 135377 5 Unit(s) SQ AC 06/04/2017 06/05/2017 Inactive start with 5 units with breakfast -call with blood sugars in 1 week Restasis 0.05 % eye drops in a dropperette RxNorm: 500952 1 gtts ophthalmic (ey e) Q12H 06/04/2017 07/03/2017 Inactive Toujeo SoloStar U-30 0 Insulin 300 unit/mL (1.5 mL) subcutaneous pen RxNorm: 9539170 28 Unit(s) SQ QPM x1 week, then 32 units daily. 04/26/2017 08/28/2017 Inactive Restasis MultiDose 0 .05 % eye drops RxNorm: 150357 1 Drop(s) ophthalmic (eye) daily - BID 04/24/2017 No Stop Date Active cyanocobalamin (vit B-12) 1,000 mcg/mL injection solution RxNorm: 895567 1 Milliliter(s) Inj QW -BIW 04/24/2017 07/22/2017 Inactive disp with syringes please Toujeo SoloStar U-30 0 Insulin 300 unit/mL (1.5 mL) subcutaneous pen RxNorm: 6665875 24 Unit(s) SQ QPM 04/24/2017 04/23/2017 Inactive Novofine 32 32 gauge x 1/4" needle RxNorm: 1 test Miscellaneous daily 04/24/2017 07/22/2017 In active E11.65 use with westley venlafaxine ER 150 m g tablet,extended release 24 hr RxNorm: 815703 1 Tablet(s) PO daily 04/24/2017 10/10/2017 Inactive cyanocobalamin (vit B-12) 1,000 mcg/mL injection solution RxNorm: 423536 1 Milliliter(s) Inj QW -BIW 04/24/2017 04/23/2017 Inactive metoprolol succinate ER 50 mg tablet,extended release 24 hr RxNorm: 043131 1 Tablet(s) PO daily 04/24/2017 09/17/2017 Inactive Toujeo SoloStar U-30 0 Insulin 300 unit/mL (1.5 mL) subcutaneous pen RxNorm: 9290623 24 Unit(s) SQ QPM 04/24/2017 04/25/2017 Inactive Centrum Silver tablet RxNorm: 1 Tablet(s) PO daily No Start Date Active Novolog U-100 Insuli n aspart 100 unit/mL subcutaneous solution RxNorm: 429364 5 Unit(s) SQ AC No Start Date Active magnesium 250 mg tablet RxNorm: 1 Tablet(s) PO as needed No Start Date Active Probiotic Blend oral RxNorm: 750366 oral No Start Date Active Calcium 600 + D(3) 6 00 mg (1,500 mg)-400 unit tablet RxNorm: 506853 1 Tablet(s) PO as needed No Start Date Active atorvastatin 40 mg t ablet RxNorm: 889130 1 Tablet(s) PO QPM No Start Date 08/01/2017 Inactive Novofine 32 32 gauge x 1/4" needle RxNorm: 1 Miscellaneous daily No Start Date 04/23/2017 Inactive cyanocobalamin (vit B-12) 1,000 mcg/mL injection solution RxNorm: 496108 1 Milliliter(s) Inj No Start Date 04/23/2017 Inactive metoprolol succinate ER 50 mg tablet,extended release 24 hr RxNorm: 466157 1 Tablet(s) PO daily No Start Date 04/23/2017 Inactive lisinopril 5 mg tablet RxNorm: 859939 1 Tablet(s) PO QPM No Start Date 04/23/2017 Inactive Restasis MultiDose 0 .05 % eye drops RxNorm: 311322 Drop(s) ophthalmic (e ye) No Start Date 04/23/2017 Inactive venlafaxine ER 150 m g capsule,extended release 24 hr RxNorm: 241374 1 Capsule(s) PO daily No Start Date 04/23/2017 Inactive Toujeo SoloStar U-30 0 Insulin subcutaneous RxNorm: subcutaneous No Start Date 04/23/2017 Inactive Medication Administered No Medication Administered data Immunizations No Immunization data Assessments Condition Codes Effectiv e Dates Acute recurrent maxillary sinusitis ICD-10: J01.01 ICD-9: 461.0 03/19/2018 Rash and other nonspecific skin eruption ICD-10: R21 ICD-9: 782.1 03/19/2018 Unsteadiness on feet ICD-10: R26.81 ICD-9: 781.2 02/01/2018 Essential (primary) hypertension ICD -10: I10 ICD-9: 401.9 02/01/2018 Low back pain ICD-10: M54.5 ICD-9: 724.2 02/01/2018 Other fatigue ICD-10: R53.83 ICD-9: 780.79 12/13/2017 Type 2 diabetes mellitus with hyperglycemia ICD-10: E11.65 ICD-9: 250.02 12/13/2017 Major depressive disorder, recurrent, in partial remis german ICD-10: F33.41 ICD-9: 296.35 09/18/2017 Pouchitis ICD-10: K91.850 ICD-9: 569.71 08/23/2017 Orthostatic hypotension ICD-10: I95. 1 ICD-9: 458.0 08/23/2017 Type 2 diabetes mellitus without complications ICD-10: E11.9 ICD-9: 250.00 04/24/2017 Melena ICD-10: K92.1 ICD-9: 578.1 04/24/2017 Other ulcerative colitis with unspecified complication s ICD- 10: K51.819 ICD-9: 556.8 04/24/2017 Left lower quadrant pain ICD-10: R10 .32 ICD-9: 789.04 04/24/2017 Reason For Visit Reason For Visit Effective Dates Notes sore throat 03/19/2018 low back and leg pain 02/01/2018 headache 12/13/2017 diabetes mellitus 09/18/2017 gait abnormality 08/23/2017 diabetes mellitus 06/20/2017 continuous blood glucose monitor diabetes mellitus 06/11/2017 diabetes mellitus 06/04/2017 diabetes mellitus 04/24/2017 Results Observation Observation Code Item Item Code Result Date Cbc With Differential Ord2 WBC 5.84 K/ul [...] 32.0 pg 12/13/2017 Cbc With Differential Ord2 [place]% 8.0 % 12/13/2017 Cbc With Differential Ord2 [...] 1.44 K/ul 12/13/2017 Cbc With Differential Ord2 [place] ABS# 0.5 K/ul 12/13/2017 Cbc With Differential Ord2 Eos ABS# 0.1 K/ul 12/13/2017 Cbc With Differential Ord2 Baso ABS# 0.0 K/ul 12/13/2017 %Hba1C Kyl715 % HbA1c 12271-9 9.6 % 12/13/2017 %Hba1C Ueq735 Gluc Ave 229 mg/dL 12/13/2017 Tsh Ord6 TSH (3rd IS) 2.56 uIU/mL 12/13/2017 Comp Metabolic Fce163 NA 140 mEq/L 12/13/2017 Comp Metabolic Bfm565 K 4.4 mEq/L 12/13/2017 Comp Metabolic Izn812 CL 107 mEq/L 12/13/2017 Comp Metabolic Rtv479 CO2 23.0 mEq/L 12/13/2017 Comp Metabolic Ivu762 AN ION GAP 14 12/13/2017 Comp Metabolic Uti714 GL UCOSE 179 mg/dL 12/13/2017 Comp Metabolic Rjk795 Cr eat 1.7 mg/dL 12/13/2017 Comp Metabolic Fxx230 eG FR 31 ml/min/1.73m2 12/13 Comp Metabolic Rkd845 BUN 40 mg/dL 12/13/2017 Comp Metabolic Sog573 B/ C Ratio 23.3 Ratio 12/13/2017 Comp Metabolic Uor950 CA LCIUM 10.3 mg/dL 12/13/2017 Comp Metabolic Fyx622 AL K PHOS 54 U/L 12/13/2017 Comp Metabolic Wsz713 T(SGOT) 41 U/L 12/13/2017 Comp Metabolic Szs099 AL T(SGPT) 44 U/L 12/13/2017 Comp Metabolic Yre064 BI LI T 0.4 mg/dL 12/13/2017 Comp Metabolic Iat543 AL BUMIN 4.9 g/dL 12/13/2017 Comp Metabolic Ars963 TP RO 7.7 g/dL 12/13/2017 Comp Metabolic Hmn776 GL OB 2.8 g/dL 12/13/2017 Comp Metabolic Net266 A/ G Ratio 1.8 Ratio 12/13/2017 Comp Metabolic Fqr075 Os mo 294 mOsmo 12/13/2017 Lipid Ord30 CHOL 171 mg/dL 12/13/2017 Lipid Ord30 HDL 64.0 mg/dl 12/13/2017 Lipid Ord30 TRIG 89 mg/dL 12/13/2017 Lipid Ord30 LDL 89 mg/dL 12/13/2017 Lipid Ord30 C/HDL 2.7 Ratio 12/13/2017 Comp Metabolic Eyx904 NA 142 mEq/L 04/24/2017 Comp Metabolic Wna970 K 3.8 mEq/L 04/24/2017 Comp Metabolic Dot846 CL 105 mEq/L 04/24/2017 Comp Metabolic Wup972 CO2 27.0 mEq/L 04/24/2017 Comp Metabolic Hzo381 AN ION GAP 14 04/24/2017 Comp Metabolic Cyz089 GL UCOSE 203 mg/dL 04/24/2017 Comp Metabolic Iqi445 Cr eat 1.9 mg/dL 04/24/2017 Comp Metabolic Tnh362 eG FR 28 ml/min/1.73m2 04/24 Comp Metabolic Ras372 BUN 26 mg/dL 04/24/2017 Comp Metabolic Rvu463 B/ C Ratio 13.6 Ratio 04/24/2017 Comp Metabolic Eyk907 CA LCIUM 9.9 mg/dL 04/24/2017 Comp Metabolic Vby265 AL K PHOS 79 U/L 04/24/2017 Comp Metabolic Yih336 T(SGOT) 25 U/L 04/24/2017 Comp Metabolic Yup761 AL T(SGPT) 36 U/L 04/24/2017 Comp Metabolic Vkr186 BI LI T 0.3 mg/dL 04/24/2017 Comp Metabolic Cdp222 AL BUMIN 4.5 g/dL 04/24/2017 Comp Metabolic Ols815 TP RO 6.9 g/dL 04/24/2017 Comp Metabolic Aaj998 GL OB 2.5 g/dL 04/24/2017 Comp Metabolic Sqk186 A/ G Ratio 1.8 Ratio 04/24/2017 Comp Metabolic Qxy409 Os mo 294 mOsmo 04/24/2017 Cbc With Differential Ord2 WBC 7.65 [...] 32.0 pg 04/24/2017 Cbc With Differential Ord2 [place]% 11.0 % 04/24/2017 Cbc With Differential Ord2 [...] 2.39 K/ul 04/24/2017 Cbc With Differential Ord2 [place] ABS# 0.8 K/ul 04/24/2017 Cbc With Differential Ord2 Eos ABS# 0.1 K/ul 04/24/2017 Cbc With Differential Ord2 Baso ABS# 0.0 K/ul 04/24/2017 %Hba1C Aon703 % HbA1c 12021-4 13.1 % 04/24/2017 %Hba1C Uiu830 Gluc Ave 329 mg/dL 04/24/2017 Review of Systems System Result Effective [...] GLUC MONITOR CONT PH YS I&R CPT-4: 47806 09/18/2017 GLUCOSE MONITORING CONT CPT-4: 71845 06/20/2017 Vital Signs Date Vital 03/19/2018 Blood Pressure 1: 142/84 Code: 8480-6 BMI: 20.5 Code: 38980-5 Heart Rate 1: 88 bpm Height: 5'6" SpO2: 98% Temperature: 36.6 (C ) / 97.9 (F) Weight: 129 lbs 02/01/2018 Blood Pressure 1: 110/52 Code: 8480-6 BMI: 19.9 Code: 17229-0 Height: 5'6" Weight: 125 lbs 12/13/2017 Blood Pressure 1: 140/80 Code: 8480-6 BMI: 19.9 Code: 68708-2 Heart Rate 1: 72 bpm Height: 5'6" SpO2: 95% Weight: 125 lbs 09/18/2017 Blood Pressure 1: 126/82 Code: 8480-6 BMI: 20.0 Code: 76852-7 Heart Rate 1: 103 bpm Height: 5'6" SpO2: 98% Weight: 126 lbs 08/23/2017 Blood Pressure 1: 118/62 Code: 8480-6 Heart Rate 1: 110 bpm Height: 5'6" SpO2: 95% Temperature: 37.1 (C ) / 98.7 (F) 06/20/2017 Heigh t: Weight: 06/11/2017 Blood Pressure 1: 142/76 Code: 8480-6 BMI: 21.3 Code: 05189-7 Heart Rate 1: 102 bpm Height: 5'6" SpO2: 97% Weight: 134 lbs 06/04/2017 Blood Pressure 1: 160/84 Code: 8480-6 BMI: 20.8 Code: 90997-1 Heart Rate 1: 87 bpm Height: 5'6" SpO2: 97% Weight: 131 lbs 04/24/2017 Blood Pressure 1: 132/80 Code: 8480-6 BMI: 20.8 Code: 09288-8 Heart Rate 1: 84 bpm Height: 5'6" [...] Encounters Encounter Performer Loca tion Codes Date ([id number]) 70829 EST. P ATIENT, LEVEL III Diagnosis: Acute recurrent maxillary sinusitis[ICD10: J01.01] Diagnosis: Rash and other nonspecific skin eruption[ICD10: R21] Ana Man MD, [facility] CPT-4: 85812 03/19/2018 ([id number]) 30731 EST. P ATIENT, LEVEL IV Diagnosis: Acute recurrent maxillary sinusitis[ICD10: J01.01] Diagnosis: Low back pain[ICD10: M54.5] Diagnosis: Unsteadiness on feet[ICD10: R26.81] Diagnosis: Essential (primary) hypertension[ICD10: I10] Ana Man MD, [facility] CPT-4: 32716 02/01/2018 ([id number]) 31951 EST. P ATIENT, LEVEL IV Diagnosis: Type 2 diabetes mellitus with hyperglycemia[ICD10: E11.65] Diagnosis: Essential (primary) hypertension[ICD10: I10] Diagnosis: Other fatigue[ICD10: R53.83] Maude Man MD, [facility] CPT-4: 73097 12/13/2017 ([id number]) 57734 EST. P ATIENT, LEVEL IV Diagnosis: Type 2 diabetes mellitus with hyperglycemia[ICD10: E11.65] Diagnosis: Essential (primary) hypertension[ICD10: I10] Diagnosis: Major depressive disorder, recurrent, in partial remission[ICD10: F33.41] Maude Man MD, [facility] CPT-4: 71542 09/18/2017 ([id number]) 85069 EST. P ATIENT, LEVEL IV Diagnosis: Pouchitis[ICD10: K91.850] Diagnosis: Other fatigue[ICD10: R53.83] Diagnosis: Type 2 diabetes mellitus with hyperglycemia[ICD10: E11.65] Diagnosis: Essential (primary) hypertension[ICD10: I10] Diagnosis: Orthostatic hypotension[ICD10: I95.1] Maude Man MD, [facility] CPT-4: 47753 08/23/2017 ([id number]) Miscellaneou s no charge Diagnosis: Type 2 diabetes mellitus with hyperglycemia[ICD10: E11.65] [facility] CPT-4: 09811 06/25/2017 ([id number]) 03100 EST. P ATIENT, LEVEL IV Diagnosis: Type 2 diabetes mellitus with hyperglycemia[ICD10: E11.65] Maude Man MD, [facility] CPT-4: 01226 06/11/2017 ([id number]) 22797 EST. P ATIENT, LEVEL IV Diagnosis: Type 2 diabetes mellitus with hyperglycemia[ICD10: E11.65] Diagnosis: Essential (primary) hypertension[ICD10: I10] Diagnosis: Acute recurrent maxillary sinusitis[ICD10: J01.01] Ana Man MD, [facility] CPT-4: 45913 06/04/2017 OFFICE VISIT, NEW - LEVEL 4 Diagnosis: Left lower quadrant pain[ICD10: R10.32] Diagnosis: Other ulcerative colitis with unspecified complications[ICD10: K51.819] Diagnosis: Essential (primary) hypertension[ICD10: I10] Diagnosis: Type 2 diabetes mellitus without complications[ICD10: E11.9] Diagnosis: Major depressive disorder, recurrent, in partial remission[ICD10: F33.41] Diagnosis: Melena[ICD10: K92.1] Ana Man MD, [facility] CPT-4: 25549 04/24/2017 Plan of Care Planned Activity Notes [...] any worse 03/19/2018 Appointment: Ana Burrell WPtel: [address] [place], [place] [phone] (30 min) [facility] 03/19/2018 Patient Education: Patient Medication Summary Completed [...] appt 02/01/2018 Appointment: Indra Ana WPtel: [phone] [phone] [place] (30 min) Complex 02/01/2018 Patient Education: Patient Medication Summary Completed 02/01/2018 Patient Education: Back Pain Completed 02/01/2018 Patient Education: Hypertension Completed 02/01/2018 Appointment: Maude Man WPtel: [phone] [facility] [address] (15 min) Moderate 01/24/2018 Referral: Megha Garcia [...] Appointment: Maude Man WPtel: [phone] [facility] [address] [place] (15 min) Moderate 12/13/2017 Patient Education: Patient Medication Summary Completed 12/13/2017 Patient Education: Diabetes Completed 12/13/2017 Patient Education: Hypertension Completed 12/13/2017 Care Plan: Referral Order SNOMED-CT : [id number] Pending 12/13/2017 [phone] [place] ([facility]) Moderate 11/26/2017 Visit Plan: Diabetes Mellitus - [facility] ontrolled - per recent FSBS reports. [...] followed through 09/18/2017 [phone] [place] (15 min) Moderate 09/18/2017 Patient Education: Patient Medication Summary Completed 09/18/2017 Referral: External, Ordering Provider Patient informed. Referral info faxed. Completed 09/17/2017 Appointment: Maude Man WPtel: [phone] [facility] [address] (15 min) Moderate 09/06/2017 Visit Plan: Pouchitis [...] Dr. Gracia. 08/23/2017 Appointment: Maude Man WPtel: [facility] [address] (15 min) Moderate 08/23/2017 Patient Education: Patient Medication Summary Completed 08/23/2017 Care Plan: Comp Metabolic Cancelled 08/23/2017 Care Plan: Cbc With Differential Cancelled 08/23/2017 Care Plan: %Hba1C LOIN C : 86837-6 Cancelled 08/23/2017 Care Plan: Magnesium Cancelled 08/23/2017 Care Plan: Referral Order SNOMED-CT : [id number] Pending 08/23/2017 Appointment: Maude Man WPtel: [facility] [address] [place] (15 min) Moderate 08/13/2017 Visit Plan: CGM removed - pt tolera jomar procedure well - no changes at this time. 06/25/2017 Patient Education: Patient Medication Summary Completed 06/25/2017 Appointment: Maude Man WPtel: [facility] [address] [place] (15 min) Moderate 06/21/2017 Visit Plan: [...] glucose control. 06/20/2017 Appointment: Shae Guerrero WPtel: [address] [place], [place] [address] (30 min) [facility] 06/20/2017 Patient Education: Patient Medication Summary [...] Completed 06/04/2017 [phone] ([facility] min) Complex 05/31/2017 [facility]: [phone] [phone] (30 min) Complex 05/29/2017 [facility]: [phone] (30 min) Complex 05/24/2017 Visit Plan: Left [...] medications. 04/24/2017 [facility]: [phone] [facility] New Patient 04/24/2017 Patient Education: Patient Medication Summary Completed 04/24/2017 App[facility]ment: [phone] [facility] 04/20/2017 Referral: External, Ordering [...]
--- OUTSIDE RECORDS SUMMARY | 2019-01-29 06:16 | XMS REPORT | CCD ---
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 Name Role Phone PP Unavailable CCM Unavailable Summary Purpose Interface Exchange Insurance Providers Payer name Policy type / Coverage type Covered green party ID Effective Begin Date Effective End Date WPS Medicare Part B Blue Cross/Blue Shield [id number] Unknown Blue Cross Blue Shield [facility] Tir[place] e Cross/Blue Shield [id number] Un known Blue Cross/Blue Shield [id number] Unknown Family history Sister Diagnosis Age At [...] 1 04/24/2017 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 04/24/[address]: 967470365 Never smoker 04/24/[address]: 198367745 Never drinks alcohol 04/24/2017 Allergies, Adverse Reactions, Alerts Substance Reaction Codes Entered Date Inactivated Date Status Levaquin RxNorm: 96708 04/24/2017 No Inactive Date Active Past Medical [...] Instructions doxycycline hyclate 100 mg tablet RxNorm: 3771052 1 Tablet(s) PO BID 03/19/2018 03/25/2018 Active mupirocin 2 % topica l ointment RxNorm: 466643 1 Application TOP BID 03/19/2018 03/28/2018 Active Basaglar KwikPen U-1 00 Insulin 100 unit/mL (3 mL) subcutaneous RxNorm: 6988140 45 Unit(s) SQ daily 03/06/2018 10/01/2018 Active Basaglar KwikPen U-1 00 Insulin 100 unit/mL (3 mL) subcutaneous RxNorm: 5958424 45 Unit(s) SQ daily 03/06/2018 03/05/2018 Inactive Toujeo SoloStar U-30 0 Insulin 300 unit/mL (1.5 mL) subcutaneous pen RxNorm: 8304895 Unit(s) INJECT 45 UNITS UNDER THE SKIN DAILY 02/22/2018 03/05/2018 Inactive 30 d ay supply Toujeo SoloStar U-30 0 Insulin 300 unit/mL (1.5 mL) subcutaneous pen RxNorm: 3062534 INJECT 40 UNITS UNDER THE SKIN DAILY 02/21/2018 02/21/2018 Inactive Keflex 500 mg capsule RxNorm: 437573 1 Capsule(s) PO TID 02/01/2018 02/07/2018 Inactive Toujeo SoloStar U-30 0 Insulin 300 unit/mL (1.5 mL) subcutaneous pen RxNorm: 5288855 45 Unit(s) SQ daily 12/26/2017 No Stop Date Active atorvastatin 40 mg t ablet RxNorm: 177136 Tablet(s) TAKE ONE-REA LF TABLET BY MOUTH EVERY EVENING 12/26/2017 No Stop Date Active Restasis 0.05 % eye drops in a dropperette RxNorm: 065652 INSTILL ONE DROP IN E ACH EYE EVERY 12 HOURS 12/24/2017 04/22/2018 Active atorvastatin 40 mg t ablet RxNorm: 573498 TAKE ONE TABLET BY MO [facility] EVERY EVENING 12/17/2017 12/25/2017 In active venlafaxine ER 150 m g tablet,extended release 24 hr RxNorm: 673311 TAKE ONE CAPSULE BY MOUTH DAILY 10/11/2017 07/07/2018 Active metoprolol succinate ER 50 mg tablet,extended release 24 hr RxNorm: 634543 TAKE ONE TABLET BY MOUTH DAILY 10/11/2017 07/07/2018 Active atorvastatin 40 mg t ablet RxNorm: 913396 TAKE ONE TABLET BY MO [facility] EVERY EVENING 10/11/2017 12/16/2017 In active metoprolol succinate ER 25 mg tablet,extended release 24 hr RxNorm: 237589 1/2 Tablet(s) PO daily 09/18/2017 03/16/2018 Inactive metronidazole 500 mg tablet RxNorm: 884743 1 Tablet(s) PO TID 08/23/2017 09/01/2017 Inactive Diflucan 150 mg tablet RxNorm: 789622 1 Tablet(s) PO daily 08/23/2017 09/01/2017 Inactive atorvastatin 40 mg t ablet RxNorm: 033795 1 Tablet(s) PO QPM 08/02/2017 10/10/2017 Inactive Toujeo SoloStar U-30 0 Insulin 300 unit/mL (1.5 mL) subcutaneous pen RxNorm: 7597789 40 Unit(s) SQ daily 07/30/2017 12/25/2017 Inactive Novofine 32 32 gauge x 1/4" needle RxNorm: USE TO TEST BLOOD SUGAR ONC E DAILY 07/26/2017 04/16/2019 Ac tive Toujeo SoloStar U-30 0 Insulin 300 unit/mL (1.5 mL) subcutaneous pen RxNorm: 6165893 INJECT 24 UNITS UNDER THE SKIN EVERY EVENING 07/26/2017 07/29/2017 Inactive Apidra U-100 Insulin 100 unit/mL subcutaneous solution RxNorm: 928247 5 Unit(s) SQ AC 06/06/2017 06/06/2017 Inactive start with 5 units with breakfast -call with blood sugars in 1 week Keflex 500 mg capsule RxNorm: 361698 1 Capsule(s) PO TID 06/04/2017 06/10/2017 Inactive Apidra U-100 Insulin 100 unit/mL subcutaneous solution RxNorm: 269306 5 Unit(s) SQ AC 06/04/2017 06/05/2017 Inactive start with 5 units with breakfast -call with blood sugars in 1 week Restasis 0.05 % eye drops in a dropperette RxNorm: 073879 1 gtts ophthalmic (ey e) Q12H 06/04/2017 07/03/2017 Inactive Toujeo SoloStar U-30 0 Insulin 300 unit/mL (1.5 mL) subcutaneous pen RxNorm: 4045250 28 Unit(s) SQ QPM x1 week, then 32 units daily. 04/26/2017 08/28/2017 Inactive Restasis MultiDose 0 .05 % eye drops RxNorm: 055654 1 Drop(s) ophthalmic (eye) daily - BID 04/24/2017 No Stop Date Active cyanocobalamin (vit B-12) 1,000 mcg/mL injection solution RxNorm: 927399 1 Milliliter(s) Inj QW -BIW 04/24/2017 07/22/2017 Inactive disp with syringes please Toujeo SoloStar U-30 0 Insulin 300 unit/mL (1.5 mL) subcutaneous pen RxNorm: 2277215 24 Unit(s) SQ QPM 04/24/2017 04/23/2017 Inactive Novofine 32 32 gauge x 1/4" needle RxNorm: 1 test Miscellaneous daily 04/24/2017 07/22/2017 In active E11.65 use with westley venlafaxine ER 150 m g tablet,extended release 24 hr RxNorm: 433008 1 Tablet(s) PO daily 04/24/2017 10/10/2017 Inactive cyanocobalamin (vit B-12) 1,000 mcg/mL injection solution RxNorm: 069810 1 Milliliter(s) Inj QW -BIW 04/24/2017 04/23/2017 Inactive metoprolol succinate ER 50 mg tablet,extended release 24 hr RxNorm: 567840 1 Tablet(s) PO daily 04/24/2017 09/17/2017 Inactive Toujeo SoloStar U-30 0 Insulin 300 unit/mL (1.5 mL) subcutaneous pen RxNorm: 5974394 24 Unit(s) SQ QPM 04/24/2017 04/25/2017 Inactive Centrum Silver tablet RxNorm: 1 Tablet(s) PO daily No Start Date Active Novolog U-100 Insuli n aspart 100 unit/mL subcutaneous solution RxNorm: 890862 5 Unit(s) SQ AC No Start Date Active magnesium 250 mg tablet RxNorm: 1 Tablet(s) PO as needed No Start Date Active Probiotic Blend oral RxNorm: 376045 oral No Start Date Active Calcium 600 + D(3) 6 00 mg (1,500 mg)-400 unit tablet RxNorm: 669776 1 Tablet(s) PO as needed No Start Date Active atorvastatin 40 mg t ablet RxNorm: 288615 1 Tablet(s) PO QPM No Start Date 08/01/2017 Inactive Novofine 32 32 gauge x 1/4" needle RxNorm: 1 Miscellaneous daily No Start Date 04/23/2017 Inactive cyanocobalamin (vit B-12) 1,000 mcg/mL injection solution RxNorm: 471285 1 Milliliter(s) Inj No Start Date 04/23/2017 Inactive metoprolol succinate ER 50 mg tablet,extended release 24 hr RxNorm: 067638 1 Tablet(s) PO daily No Start Date 04/23/2017 Inactive lisinopril 5 mg tablet RxNorm: 514453 1 Tablet(s) PO QPM No Start Date 04/23/2017 Inactive Restasis MultiDose 0 .05 % eye drops RxNorm: 926066 Drop(s) ophthalmic (e ye) No Start Date 04/23/2017 Inactive venlafaxine ER 150 m g capsule,extended release 24 hr RxNorm: 113616 1 Capsule(s) PO daily No Start Date [...] Ord30 C/HDL 2.7 Ratio 12/13/2017 Comp Metabolic Wah748 NA 140 mEq/L 12/13/2017 Comp Metabolic Jfv706 K 4.4 mEq/L 12/13/2017 Comp Metabolic Fho470 CL 107 mEq/L 12/13/2017 Comp Metabolic Gvk352 CO2 23.0 mEq/L 12/13/2017 Comp Metabolic Jsc531 AN ION GAP 14 12/13/2017 Comp Metabolic Wru063 GL UCOSE 179 mg/dL 12/13/2017 Comp Metabolic Yjr045 Cr eat 1.7 mg/dL 12/13/2017 Comp Metabolic Adf240 eG FR 31 ml/min/1.73m2 12/13 Comp Metabolic Smu448 BUN 40 mg/dL 12/13/2017 Comp Metabolic Umr175 B/ C Ratio 23.3 Ratio 12/13/2017 Comp Metabolic Gtk632 CA LCIUM 10.3 mg/dL 12/13/2017 Comp Metabolic Fpd500 AL K PHOS 54 U/L 12/13/2017 Comp Metabolic Kvx800 T(SGOT) 41 U/L 12/13/2017 Comp Metabolic Sre917 AL T(SGPT) 44 U/L 12/13/2017 Comp Metabolic Hcp767 BI LI T 0.4 mg/dL 12/13/2017 Comp Metabolic Dbe640 AL BUMIN 4.9 g/dL 12/13/2017 Comp Metabolic Akj352 TP RO 7.7 g/dL 12/13/2017 Comp Metabolic Zer003 GL OB 2.8 g/dL 12/13/2017 Comp Metabolic Qzs320 A/ G Ratio 1.8 Ratio 12/13/2017 Comp Metabolic Nyj872 Os mo 294 mOsmo 12/13/2017 Tsh Ord6 TSH (3rd IS) 2.56 uIU/mL 12/13/2017 %Hba1C Doi731 % HbA1c 43912-8 9.6 % 12/13/2017 %Hba1C Zpj913 Gluc Ave 229 mg/dL 12/13/2017 Cbc With [...] 32.0 pg 12/13/2017 Cbc With Differential Ord2 [place]% 8.0 % 12/13/2017 Cbc With Differential Ord2 [...] 1.44 K/ul 12/13/2017 Cbc With Differential Ord2 [place] ABS# 0.5 K/ul 12/13/2017 Cbc With Differential Ord2 Eos ABS# 0.1 K/ul 12/13/2017 Cbc With Differential Ord2 Baso ABS# 0.0 K/ul 12/13/2017 %Hba1C Poe594 % HbA1c 52891-2 13.1 % 04/24/2017 %Hba1C Zsg401 Gluc Ave 329 mg/dL 04/24/2017 Cbc With [...] 32.0 pg 04/24/2017 Cbc With Differential Ord2 [place]% 11.0 % 04/24/2017 Cbc With Differential Ord2 [...] 2.39 K/ul 04/24/2017 Cbc With Differential Ord2 [place] ABS# 0.8 K/ul 04/24/2017 Cbc With Differential Ord2 Eos ABS# 0.1 K/ul 04/24/2017 Cbc With Differential Ord2 Baso ABS# 0.0 K/ul 04/24/2017 Comp Metabolic Owi365 NA 142 mEq/L 04/24/2017 Comp Metabolic Ahf552 K 3.8 mEq/L 04/24/2017 Comp Metabolic Qzt142 CL 105 mEq/L 04/24/2017 Comp Metabolic Rxl588 CO2 27.0 mEq/L 04/24/2017 Comp Metabolic Ljj096 AN ION GAP 14 04/24/2017 Comp Metabolic Jos936 GL UCOSE 203 mg/dL 04/24/2017 Comp Metabolic Cpi147 Cr eat 1.9 mg/dL 04/24/2017 Comp Metabolic Fsn287 eG FR 28 ml/min/1.73m2 04/24 Comp Metabolic Rny234 BUN 26 mg/dL 04/24/2017 Comp Metabolic Pfw200 B/ C Ratio 13.6 Ratio 04/24/2017 Comp Metabolic Vpk953 CA LCIUM 9.9 mg/dL 04/24/2017 Comp Metabolic Ooc103 AL K PHOS 79 U/L 04/24/2017 Comp Metabolic Otn738 T(SGOT) 25 U/L 04/24/2017 Comp Metabolic Syn602 AL T(SGPT) 36 U/L 04/24/2017 Comp Metabolic Oti639 BI LI T 0.3 mg/dL 04/24/2017 Comp Metabolic Xvr157 AL BUMIN 4.5 g/dL 04/24/2017 Comp Metabolic Kgp651 TP RO 6.9 g/dL 04/24/2017 Comp Metabolic Jvi439 GL OB 2.5 g/dL 04/24/2017 Comp Metabolic Cly704 A/ G Ratio 1.8 Ratio 04/24/2017 Comp Metabolic Apc041 Os mo 294 mOsmo 04/24/2017 Review of [...] GLUC MONITOR CONT PH YS I&R CPT-4: 23405 09/18/2017 GLUCOSE MONITORING CONT CPT-4: 12469 06/20/2017 Vital Signs Date Vital 03/19/2018 Blood Pressure 1: 142/84 Code: 8480-6 BMI: 20.5 Code: 43927-1 Heart Rate 1: 88 bpm Height: 5'6" SpO2: 98% Temperature: 36.6 (C ) / 97.9 (F) Weight: 129 lbs 02/01/2018 Blood Pressure 1: 110/52 Code: 8480-6 BMI: 19.9 Code: 53421-1 Height: 5'6" Weight: 125 lbs 12/13/2017 Blood Pressure 1: 140/80 Code: 8480-6 BMI: 19.9 Code: 15327-7 Heart Rate 1: 72 bpm Height: 5'6" SpO2: 95% Weight: 125 lbs 09/18/2017 Blood Pressure 1: 126/82 Code: 8480-6 BMI: 20.0 Code: 99180-2 Heart Rate 1: 103 bpm Height: 5'6" SpO2: 98% Weight: 126 lbs 08/23/2017 Blood Pressure 1: 118/62 Code: 8480-6 Heart Rate 1: 110 bpm Height: 5'6" SpO2: 95% Temperature: 37.1 (C ) / 98.7 (F) 06/20/2017 Heigh t: Weight: 06/11/2017 Blood Pressure 1: 142/76 Code: 8480-6 BMI: 21.3 Code: 66821-0 Heart Rate 1: 102 bpm Height: 5'6" SpO2: 97% Weight: 134 lbs 06/04/2017 Blood Pressure 1: 160/84 Code: 8480-6 BMI: 20.8 Code: 70951-4 Heart Rate 1: 87 bpm Height: 5'6" SpO2: 97% Weight: 131 lbs 04/24/2017 Blood Pressure 1: 132/80 Code: 8480-6 BMI: 20.8 Code: 59683-7 Heart Rate 1: 84 bpm Height: 5'6" [...] Encounters Encounter Performer Loca tion Codes Date ([id number]) 88026 EST. P ATIENT, LEVEL III Diagnosis: Acute recurrent maxillary sinusitis[ICD10: J01.01] Diagnosis: Rash and other nonspecific skin eruption[ICD10: R21] Ana Man MD, [facility] CPT-4: 94799 03/19/2018 ([id number]) 83921 EST. P ATIENT, LEVEL IV Diagnosis: Acute recurrent maxillary sinusitis[ICD10: J01.01] Diagnosis: Low back pain[ICD10: M54.5] Diagnosis: Unsteadiness on feet[ICD10: R26.81] Diagnosis: Essential (primary) hypertension[ICD10: I10] Ana Man MD, [facility] CPT-4: 37224 02/01/2018 ([id number]) 89583 EST. P ATIENT, LEVEL IV Diagnosis: Type 2 diabetes mellitus with hyperglycemia[ICD10: E11.65] Diagnosis: Essential (primary) hypertension[ICD10: I10] Diagnosis: Other fatigue[ICD10: R53.83] Maude Man MD, [facility] CPT-4: 49118 12/13/2017 ([id number]) 99677 EST. 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 P ATIENT, LEVEL IV Diagnosis: Pouchitis[ICD10: K91.850] Diagnosis: Other fatigue[ICD10: R53.83] Diagnosis: Type 2 diabetes mellitus with hyperglycemia[ICD10: E11.65] Diagnosis: Essential (primary) hypertension[ICD10: I10] Diagnosis: Orthostatic hypotension[ICD10: I95.1] Maude Man MD, [facility] CPT-4: 95221 08/23/2017 ([id number]) Miscellaneou s no charge Diagnosis: Type 2 diabetes mellitus with hyperglycemia[ICD10: E11.65] [facility] CPT-4: 17140 06/25/2017 ([id number]) 10111 EST. P ATIENT, LEVEL IV Diagnosis: Type 2 diabetes mellitus with hyperglycemia[ICD10: E11.65] Maude Man MD, [facility] CPT-4: 77878 06/11/2017 ([id number]) 09009 EST. P ATIENT, LEVEL IV Diagnosis: Type 2 diabetes mellitus with hyperglycemia[ICD10: E11.65] Diagnosis: Essential (primary) hypertension[ICD10: I10] Diagnosis: Acute recurrent maxillary sinusitis[ICD10: J01.01] [facility] CPT-4: 37722 06/04/2017 OFFICE VISIT, NEW - LEVEL 4 Diagnosis: Left lower quadrant pain[ICD10: R10.32] Diagnosis: Other ulcerative colitis with unspecified complications[ICD10: K51.819] Diagnosis: Essential (primary) hypertension[ICD10: I10] Diagnosis: Type 2 diabetes mellitus without complications[ICD10: E11.9] Diagnosis: Major depressive disorder, recurrent, in partial remission[ICD10: F33.41] Diagnosis: Melena[ICD10: K92.1] [facility] CPT-4: 41610 04/24/2017 Plan of Care Planned Activity Notes [...] completely or of if any worse 03/19/2018 Patient Education: Patient Medication Summary Completed 03/19/2018 Care Plan: C WOUN RTS from forehead Pending 03/19/2018 Visit Plan: Sinusitis - Pt has acut e infection - pain in face, maxillary region, Pt informed to use decongestant, RX given to patient, sinus rinses also recommended. Call if symptoms do not show improvement. Low ba ck pain -sciatica-gait instability -refer for PT -xray lumbar spine HTN-monitor at home and bring readings to next appt 02/01/2018 [facility] [phone] [facility] [place] (30 min) Complex 02/01/2018 Patient Education: Patient Medication Summary Completed 02/01/2018 Patient Education: Back Pain Completed 02/01/2018 Patient Education: Hypertension Completed 02/01/2018 [facility] [phone] [facility] [place] (15 min) Moderate 01/24/2018 Referral: Megha [...] been made. 12/13/2017 App[facility]ment: [facility] [phone] [facility] [place] (15 min) Moderate 12/13/2017 Patient Education: Patient Medication Summary Completed 12/13/2017 Patient Education: Diabetes Completed 12/13/2017 Patient Education: Hypertension Completed 12/13/2017 Care Plan: Referral Order SNOMED-CT : [id number] Pending 12/13/2017 App[facility]ment: [facility]ude [facility]el[facility] [phone] [facility] [place] (15 min) Moderate 11/26/2017 Visit Plan: Diabetes Mellitus - [facility] ontrolled - per recent FSBS [...] [facility], [facility] - discussed with pt - medication adjustment will occur after next hgba1c, pt to review diet, we will refer her to diabetic education classes at the hospital. 09/18/2017 Visit Plan: Diabetes Mellitus - [facility] ontrolled - per recent FSBS [...] through 09/18/2017 App[facility]ment: Maude [facility]el[facility] [phone] [facility] (15 min) Moderate 09/18/2017 Patient Education: Patient Medication Summary Completed 09/18/2017 Referral: External, Ordering Provider Patient informed. Referral info faxed. Completed 09/17/2017 Appointment: Maude Man WPtel: [phone] [facility] (15 min) Moderate 09/06/2017 Visit Plan: Pouchitis [...] Dr. Gracia. 08/23/2017 Appointment: Maude Man WPtel: [address] [place], [place] [address] (15 min) Moderate 08/23/2017 Patient Education: Patient Medication Summary Completed 08/23/2017 Care Plan: Comp Metabolic Cancelled 08/23/2017 Care Plan: Cbc With Differential Cancelled 08/23/2017 Care Plan: %Hba1C IN C : 94012-1 Cancelled 08/23/2017 Care Plan: Magnesium Cancelled 08/23/2017 Care Plan: Referral Order SNOMED-CT : 941721335 Pending 08/23/2017 Appointment: Maude Man WPtel: [address] [place], [place] [address] (15 min) Moderate 08/13/2017 Visit Plan: CGM removed - pt tolera jomar procedure well - no changes at this time. 06/25/2017 Patient Education: Patient Medication Summary Completed 06/25/2017 Appointment: Maude Man WPtel: [facility] (15 min) Moderate 06/21/2017 Visit Plan: [...] glucose control. 06/20/2017 Appointment: Shae Guerrero WPtel: [address] [place], [place] [address] (30 min) [facility] 06/20/2017 Patient Education: Patient Medication [...] Completed 06/04/2017 Appointment: Ana Burrell WPtel: [phone] [phone] (30 min) Complex 05/31/2017 Appointment: Ana Burrell WPtel: [phone] (30 min) Complex 05/29/2017 Appointment: Ana Burrell WPtel: [phone] (30 min) Complex 05/24/2017 Visit Plan: [...] current medications. 04/24/2017 Appointment: Ana Burrell WPtel: [phone] New Patient 04/24/2017 Patient Education: Patient Medication Summary Completed 04/24/2017 Appointment: Sh[facility] Guerre[facility]el[facility] [phone] [facility] [facility] Patient 04/20/2017 Referral: External, Ordering [...]
--- OUTSIDE RECORDS SUMMARY | 2019-01-29 06:16 | XMS REPORT | CCD ---
Author Author Baylee Burrell Organization Maude Man MD, [facility] Address [address] [place] [address] Phone Care Team Providers Care Die Tripper Name Role Phone PP Unavailable CCM Unavailable Summary Purpose Interface Exchange Insurance Providers Payer name Policy type / Coverage type Covered libertarian ID Effective Begin Date Effective End Date WPS Medicare Part B Blue Cross/Blue Shield [id number] Unknown Blue Cross Blue Shield [facility] [place] e Cross/Blue Shield [id number] Un known Blue Cross/Blue Shield [id number] Unknown Family history Sister Diagnosis Age At [...] 1 04/24/2017 Employment Unknown [employer] 04/24/[address]: 451598132 Never smoker 04/24/[address]: 543700246 Never drinks alcohol 04/24/2017 Allergies, Adverse Reactions, Alerts Substance Reaction Codes Entered Date Inactivated Date Status Levaquin RxNorm: 25651 04/24/2017 No Inactive Date Active Past Medical History Illness Codes Condition Status Onset Date Resolved Date Acute recurrent maxi llary sinusitis ICD-9: 461.0 ICD-10: J01.01 Active 06/04/2017 Unknown Essential (primary) hypertension ICD-9: 401.9 ICD-10: [...] sinusitis ICD-9: 461.0 ICD-10: J01.01 06/04/2017 Active Essential (primary) hypertension ICD-9: 401.9 ICD-10: [...] Date Stop Date Sta tus Fill Instructions Basaglar KwikPen U-1 00 Insulin 100 unit/mL (3 mL) subcutaneous RxNorm: 0532173 45 Unit(s) SQ daily 03/06/2018 10/01/2018 Active Basaglar KwikPen U-1 00 Insulin 100 unit/mL (3 mL) subcutaneous RxNorm: 7270976 45 Unit(s) SQ daily 03/06/2018 03/05/2018 Inactive Toujeo SoloStar U-30 0 Insulin 300 unit/mL (1.5 mL) subcutaneous pen RxNorm: 3338697 Unit(s) INJECT 45 UNITS UNDER THE SKIN DAILY 02/22/2018 03/05/2018 Inactive 30 d ay supply Toujeo SoloStar U-30 0 Insulin 300 unit/mL (1.5 mL) subcutaneous pen RxNorm: 2908051 INJECT 40 UNITS UNDER THE SKIN DAILY 02/21/2018 02/21/2018 Inactive Keflex 500 mg capsule RxNorm: 211943 1 Capsule(s) PO TID 02/01/2018 02/07/2018 Inactive Toujeo SoloStar U-30 0 Insulin 300 unit/mL (1.5 mL) subcutaneous pen RxNorm: 3316295 45 Unit(s) SQ daily 12/26/2017 No Stop Date Active atorvastatin 40 mg t ablet RxNorm: 012970 Tablet(s) TAKE ONE-REA LF TABLET BY MOUTH EVERY EVENING 12/26/2017 No Stop Date Active Restasis 0.05 % eye drops in a dropperette RxNorm: 312658 INSTILL ONE DROP IN E ACH EYE EVERY 12 HOURS 12/24/2017 04/22/2018 Active atorvastatin 40 mg t ablet RxNorm: 342085 TAKE ONE TABLET BY MO UTH EVERY EVENING 12/17/2017 12/25/2017 In active venlafaxine ER 150 m g tablet,extended release 24 hr RxNorm: 682716 TAKE ONE CAPSULE BY MOUTH DAILY 10/11/2017 07/07/2018 Active metoprolol succinate ER 50 mg tablet,extended release 24 hr RxNorm: 086016 TAKE ONE TABLET BY MOUTH DAILY 10/11/2017 07/07/2018 Active atorvastatin 40 mg t ablet RxNorm: 902094 TAKE ONE TABLET BY MO UTH EVERY EVENING 10/11/2017 12/16/2017 In active metoprolol succinate ER 25 mg tablet,extended release 24 hr RxNorm: 537773 1/2 Tablet(s) PO daily 09/18/2017 03/16/2018 Active metronidazole 500 mg tablet RxNorm: 101949 1 Tablet(s) PO TID 08/23/2017 09/01/2017 Inactive Diflucan 150 mg tablet RxNorm: 050413 1 Tablet(s) PO daily 08/23/2017 09/01/2017 Inactive atorvastatin 40 mg t ablet RxNorm: 379504 1 Tablet(s) PO QPM 08/02/2017 10/10/2017 Inactive Toujeo SoloStar U-30 0 Insulin 300 unit/mL (1.5 mL) subcutaneous pen RxNorm: 5797069 40 Unit(s) SQ daily 07/30/2017 12/25/2017 Inactive Novofine 32 32 gauge x 1/4" needle RxNorm: USE TO TEST BLOOD SUGAR ONC E DAILY 07/26/2017 04/16/2019 Ac tive Toujeo SoloStar U-30 0 Insulin 300 unit/mL (1.5 mL) subcutaneous pen RxNorm: 2071603 INJECT 24 UNITS UNDER THE SKIN EVERY EVENING 07/26/2017 07/29/2017 Inactive Apidra U-100 Insulin 100 unit/mL subcutaneous solution RxNorm: 083012 5 Unit(s) SQ AC 06/06/2017 06/06/2017 Inactive start with 5 units with breakfast -call with blood sugars in 1 week Keflex 500 mg capsule RxNorm: 716363 1 Capsule(s) PO TID 06/04/2017 06/10/2017 Inactive Apidra U-100 Insulin 100 unit/mL subcutaneous solution RxNorm: 562448 5 Unit(s) SQ AC 06/04/2017 06/05/2017 Inactive start with 5 units with breakfast -call with blood sugars in 1 week Restasis 0.05 % eye drops in a dropperette RxNorm: 631357 1 gtts ophthalmic (ey e) Q12H 06/04/2017 07/03/2017 Inactive Toujeo SoloStar U-30 0 Insulin 300 unit/mL (1.5 mL) subcutaneous pen RxNorm: 9943528 28 Unit(s) SQ QPM x1 week, then 32 units daily. 04/26/2017 08/28/2017 Inactive Restasis MultiDose 0 .05 % eye drops RxNorm: 941410 1 Drop(s) ophthalmic (eye) daily - BID 04/24/2017 No Stop Date Active cyanocobalamin (vit B-12) 1,000 mcg/mL injection solution RxNorm: 333026 1 Milliliter(s) Inj QW -BIW 04/24/2017 07/22/2017 Inactive disp with syringes please Toujeo SoloStar U-30 0 Insulin 300 unit/mL (1.5 mL) subcutaneous pen RxNorm: 9675632 24 Unit(s) SQ QPM 04/24/2017 04/23/2017 Inactive Novofine 32 32 gauge x 1/4" needle RxNorm: 1 test Miscellaneous daily 04/24/2017 07/22/2017 In active E11.65 use with sudeep venlafaxine ER 150 m g tablet,extended release 24 hr RxNorm: 302089 1 Tablet(s) PO daily 04/24/2017 10/10/2017 Inactive cyanocobalamin (vit B-12) 1,000 mcg/mL injection solution RxNorm: 017334 1 Milliliter(s) Inj QW -BIW 04/24/2017 04/23/2017 Inactive metoprolol succinate ER 50 mg tablet,extended release 24 hr RxNorm: 836987 1 Tablet(s) PO daily 04/24/2017 09/17/2017 Inactive Toudov SoloStar U-30 0 Insulin 300 unit/mL (1.5 mL) subcutaneous pen RxNorm: 2339453 24 Unit(s) SQ QPM 04/24/2017 04/25/2017 Inactive Centrum Silver tablet RxNorm: 1 Tablet(s) PO daily No Start Date Active Novolog U-100 Insuli n aspart 100 unit/mL subcutaneous solution RxNorm: 772160 5 Unit(s) SQ AC No Start Date Active magnesium 250 mg tablet RxNorm: 1 Tablet(s) PO as needed No Start Date Active Probiotic Blend oral RxNorm: 627245 oral No Start Date Active Calcium 600 + D(3) 6 00 mg (1,500 mg)-400 unit tablet RxNorm: 797255 1 Tablet(s) PO as needed No Start Date Active atorvastatin 40 mg t ablet RxNorm: 371310 1 Tablet(s) PO QPM No Start Date 08/01/2017 Inactive Novofine 32 32 gauge x 1/4" needle RxNorm: 1 Miscellaneous daily No Start Date 04/23/2017 Inactive cyanocobalamin (vit B-12) 1,000 mcg/mL injection solution RxNorm: 809918 1 Milliliter(s) Inj No Start Date 04/23/2017 Inactive metoprolol succinate ER 50 mg tablet,extended release 24 hr RxNorm: 839644 1 Tablet(s) PO daily No Start Date 04/23/2017 Inactive lisinopril 5 mg tablet RxNorm: 182773 1 Tablet(s) PO QPM No Start Date 04/23/2017 Inactive Restasis MultiDose 0 .05 % eye drops RxNorm: 381935 Drop(s) ophthalmic (e ye) No Start Date 04/23/2017 Inactive venlafaxine ER 150 m g capsule,extended release 24 hr RxNorm: 647286 1 Capsule(s) PO daily No Start Date 04/23/2017 Inactive Sudeep PadillaoStar U-30 0 Insulin subcutaneous RxNorm: subcutaneous No Start Date 04/23/2017 Inactive Medication Administered No Medication Administered data Immunizations No Immunization data Assessments Condition Codes Effectiv e Dates Low back pain ICD-10: M54.5 ICD-9: 724.2 02/01/2018 Unsteadiness on feet ICD-10: R26.81 ICD-9: 781.2 02/01/2018 Acute recurrent maxillary sinusitis ICD-10: J01.01 ICD-9: 461.0 02/01/2018 Essential (primary) hypertension ICD -10: I10 ICD-9: 401.9 02/01/2018 Type 2 diabetes mellitus with hyperglycemia ICD-10: E11.65 ICD-9: 250.02 12/13/2017 Other fatigue ICD-10: R53.83 ICD-9: 780.79 12/13/2017 Major depressive disorder, recurrent, in partial remis german ICD-10: F33.41 ICD-9: 296.35 09/18/2017 Pouchitis ICD-10: K91.850 ICD-9: 569.71 08/23/2017 Orthostatic hypotension ICD-10: I95. 1 ICD-9: 458.0 08/23/2017 Left lower quadrant pain ICD-10: R10 .32 ICD-9: 789.04 04/24/2017 Other ulcerative colitis with unspecified complication s ICD- 10: K51.819 ICD-9: 556.8 04/24/2017 Type 2 diabetes mellitus without complications ICD-10: E11.9 ICD-9: 250.00 04/24/2017 Melena ICD-10: K92.1 ICD-9: 578.1 04/24/2017 Reason For Visit Reason For Visit Effective Dates Notes low back and leg pain 02/01/2018 headache [...] Ord30 C/HDL 2.7 Ratio 12/13/2017 Comp Metabolic Qil859 NA 140 mEq/L 12/13/2017 Comp Metabolic Vre707 K 4.4 mEq/L 12/13/2017 Comp Metabolic Woz326 CL 107 mEq/L 12/13/2017 Comp Metabolic Sgb040 CO2 23.0 mEq/L 12/13/2017 Comp Metabolic Exg072 AN ION GAP 14 12/13/2017 Comp Metabolic Kmn568 GL UCOSE 179 mg/dL 12/13/2017 Comp Metabolic Jgr908 Cr eat 1.7 mg/dL 12/13/2017 Comp Metabolic Yky577 eG FR 31 ml/min/1.73m2 12/13 Comp Metabolic Fkv060 BUN 40 mg/dL 12/13/2017 Comp Metabolic Ums047 B/ C Ratio 23.3 Ratio 12/13/2017 Comp Metabolic Hzl518 CA LCIUM 10.3 mg/dL 12/13/2017 Comp Metabolic Jwz719 AL K PHOS 54 U/L 12/13/2017 Comp Metabolic Oio413 T(SGOT) 41 U/L 12/13/2017 Comp Metabolic Sgt024 AL T(SGPT) 44 U/L 12/13/2017 Comp Metabolic Jvf999 BI LI T 0.4 mg/dL 12/13/2017 Comp Metabolic Drf926 AL BUMIN 4.9 g/dL 12/13/2017 Comp Metabolic Cvw869 TP RO 7.7 g/dL 12/13/2017 Comp Metabolic Kkb145 GL OB 2.8 g/dL 12/13/2017 Comp Metabolic Bil441 A/ G Ratio 1.8 Ratio 12/13/2017 Comp Metabolic Rfs806 Os mo 294 mOsmo 12/13/2017 Tsh Ord6 TSH (3rd IS) 2.56 uIU/mL 12/13/2017 %Hba1C Dli794 % HbA1c 38040-3 9.6 % 12/13/2017 %Hba1C Wym873 Gluc Ave 229 mg/dL 12/13/2017 Cbc With Differential Ord2 WBC 5.84 K/ul 12/13/2017 Cbc With Differential Ord2 RBC 4.15 M/ul 12/13/2017 Cbc With Differential Ord2 HGB 13.3 g/dl 12/13/2017 Cbc With Differential Ord2 HCT 41.0 % 12/13/2017 Cbc With Differential Ord2 Neut% 66.0 % 12/13/2017 Cbc With Differential Ord2 Lymph% 24.7 % 12/13/2017 Cbc With Differential Ord2 MCV 98.8 fl 12/13/2017 Cbc With Differential Ord2 MCH 32.0 pg 12/13/2017 Cbc With Differential Ord2 [place]% 8.0 % 12/13/2017 Cbc With Differential Ord2 [...] 1.44 K/ul 12/13/2017 Cbc With Differential Ord2 [place] ABS# 0.5 K/ul 12/13/2017 Cbc With Differential Ord2 Eos ABS# 0.1 K/ul 12/13/2017 Cbc With Differential Ord2 Baso ABS# 0.0 K/ul 12/13/2017 %Hba1C Shu704 % HbA1c 16788-9 13.1 % 04/24/2017 %Hba1C Buc202 Gluc Ave 329 mg/dL 04/24/2017 Cbc With Differential Ord2 WBC 7.65 K/ul 04/24/2017 Cbc With Differential Ord2 RBC 4.13 M/ul 04/24/2017 Cbc With Differential Ord2 HGB 13.2 g/dl 04/24/2017 Cbc With Differential Ord2 Neut% 56.1 % 04/24/2017 Cbc With Differential Ord2 HCT 39.8 % 04/24/2017 Cbc With Differential Ord2 Lymph% 31.2 % 04/24/2017 Cbc With Differential Ord2 MCV 96.4 fl 04/24/2017 Cbc With Differential Ord2 MCH 32.0 pg 04/24/2017 Cbc With Differential Ord2 [place]% 11.0 % 04/24/2017 Cbc With Differential Ord2 [...] 2.39 K/ul 04/24/2017 Cbc With Differential Ord2 [place] ABS# 0.8 K/ul 04/24/2017 Cbc With Differential Ord2 Eos ABS# 0.1 K/ul 04/24/2017 Cbc With Differential Ord2 Baso ABS# 0.0 K/ul 04/24/2017 Comp Metabolic Xqr429 NA 142 mEq/L 04/24/2017 Comp Metabolic Oka384 K 3.8 mEq/L 04/24/2017 Comp Metabolic Qrz063 CL 105 mEq/L 04/24/2017 Comp Metabolic Yjm570 CO2 27.0 mEq/L 04/24/2017 Comp Metabolic Nzl268 AN ION GAP 14 04/24/2017 Comp Metabolic Cgd815 GL UCOSE 203 mg/dL 04/24/2017 Comp Metabolic Wpj810 Cr eat 1.9 mg/dL 04/24/2017 Comp Metabolic Cuw526 eG FR 28 ml/min/1.73m2 04/24 Comp Metabolic Xrg494 BUN 26 mg/dL 04/24/2017 Comp Metabolic Ivl601 B/ C Ratio 13.6 Ratio 04/24/2017 Comp Metabolic Zjp177 CA LCIUM 9.9 mg/dL 04/24/2017 Comp Metabolic Kod640 AL K PHOS 79 U/L 04/24/2017 Comp Metabolic Jtn377 T(SGOT) 25 U/L 04/24/2017 Comp Metabolic Dls265 AL T(SGPT) 36 U/L 04/24/2017 Comp Metabolic Ofj543 BI LI T 0.3 mg/dL 04/24/2017 Comp Metabolic Iqj510 AL BUMIN 4.5 g/dL 04/24/2017 Comp Metabolic Vyq287 TP RO 6.9 g/dL 04/24/2017 Comp Metabolic Lld116 GL OB 2.5 g/dL 04/24/2017 Comp Metabolic Oid868 A/ G Ratio 1.8 Ratio 04/24/2017 Comp Metabolic Shj695 Os mo 294 mOsmo 04/24/2017 Review of Systems System Result Effective Dates Constitutional recent illness 02/01/2018 Constitutional No anorexia [...] GLUC MONITOR CONT PH YS I&R CPT-4: 59744 09/18/2017 GLUCOSE MONITORING CONT CPT-4: 20261 06/20/2017 Vital Signs Date Vital 02/01/2018 Blood Pressure 1: 110/52 Code: 8480-6 BMI: 19.9 Code: 14165-6 Height: 5'6" Weight: 125 lbs 12/13/2017 Blood Pressure 1: 140/80 Code: 8480-6 BMI: 19.9 Code: 03067-5 Heart Rate 1: 72 bpm Height: 5'6" SpO2: 95% Weight: 125 lbs 09/18/2017 Blood Pressure 1: 126/82 Code: 8480-6 BMI: 20.0 Code: 21428-2 Heart Rate 1: 103 bpm Height: 5'6" SpO2: 98% Weight: 126 lbs 08/23/2017 Blood Pressure 1: 118/62 Code: 8480-6 Heart Rate 1: 110 bpm Height: 5'6" SpO2: 95% Temperature: 37.1 (C ) / 98.7 (F) 06/20/2017 Heigh t: Weight: 06/11/2017 Blood Pressure 1: 142/76 Code: 8480-6 BMI: 21.3 Code: 40688-3 Heart Rate 1: 102 bpm Height: 5'6" SpO2: 97% Weight: 134 lbs 06/04/2017 Blood Pressure 1: 160/84 Code: 8480-6 BMI: 20.8 Code: 78192-8 Heart Rate 1: 87 bpm Height: 5'6" SpO2: 97% Weight: 131 lbs 04/24/2017 Blood Pressure 1: 132/80 Code: 8480-6 BMI: 20.8 Code: 55453-2 Heart Rate 1: 84 bpm Height: 5'6" SpO2: 99% Weight: 131 lbs Functional Status No Functional Status data History of Present Illness Symptom Name Status Resu lt Effective Date Notes Location in the right frontal area 02/01/2018 [...] Encounters Encounter Performer Loca tion Codes Date ([id number]) 74076 EST. P ATIENT, LEVEL IV Diagnosis: Acute recurrent maxillary sinusitis[ICD10: J01.01] Diagnosis: Low back pain[ICD10: M54.5] Diagnosis: Unsteadiness on feet[ICD10: R26.81] Diagnosis: Essential (primary) hypertension[ICD10: I10] Ana Man MD, [facility] CPT-4: 05895 02/01/2018 ([id number]) 19330 EST. P ATIENT, LEVEL IV Diagnosis: Type 2 diabetes mellitus with hyperglycemia[ICD10: E11.65] Diagnosis: Essential (primary) hypertension[ICD10: I10] Diagnosis: Other fatigue[ICD10: R53.83] Maude Man MD, [facility] CPT-4: 92242 12/13/2017 ([id number]) 59865 EST. P ATIENT, LEVEL IV Diagnosis: Type 2 diabetes mellitus with hyperglycemia[ICD10: E11.65] Diagnosis: Essential (primary) hypertension[ICD10: I10] Diagnosis: Major depressive disorder, recurrent, in partial remission[ICD10: F33.41] Maude Man MD, [facility] CPT-4: 21314 09/18/2017 ([id number]) 83720 EST. P ATIENT, LEVEL IV Diagnosis: Pouchitis[ICD10: K91.850] Diagnosis: Other fatigue[ICD10: R53.83] Diagnosis: Type 2 diabetes mellitus with hyperglycemia[ICD10: E11.65] Diagnosis: Essential (primary) hypertension[ICD10: I10] Diagnosis: Orthostatic hypotension[ICD10: I95.1] Maude Man MD, [facility] CPT-4: 01955 08/23/2017 ([id number]) Miscellaneou s no charge Diagnosis: Type 2 diabetes mellitus with hyperglycemia[ICD10: E11.65] Shae Man MD, [facility] CPT-4: 38977 06/25/2017 ([id number]) 34410 EST. P ATIENT, LEVEL IV Diagnosis: Type 2 diabetes mellitus with hyperglycemia[ICD10: E11.65] Maude Man MD, [facility] CPT-4: 30206 06/11/2017 ([id number] 73691 EST. P ATIENT, LEVEL IV Diagnosis: Type 2 diabetes mellitus with hyperglycemia[ICD10: E11.65] Diagnosis: Essential (primary) hypertension[ICD10: I10] Diagnosis: Acute recurrent maxillary sinusitis[ICD10: J01.01] [facility] CPT-4: 21627 06/04/2017 OFFICE VISIT, NEW - LEVEL 4 Diagnosis: Left lower quadrant pain[ICD10: R10.32] Diagnosis: Other ulcerative colitis with unspecified complications[ICD10: K51.819] Diagnosis: Essential (primary) hypertension[ICD10: I10] Diagnosis: Type 2 diabetes mellitus without complications[ICD10: E11.9] Diagnosis: Major depressive disorder, recurrent, in partial remission[ICD10: F33.41] Diagnosis: Melena[ICD10: K92.1] [facility] CPT-4: 78167 04/24/2017 Plan of Care Planned Activity Notes [...] next appt 02/01/2018 Appointment: Ana Burrell WPtel: [facility]5 [phone] (30 min) Complex 02/01/2018 Patient Education: Patient Medication Summary Completed 02/01/2018 Patient Education: Back Pain Completed 02/01/2018 Patient Education: Hypertension Completed 02/01/2018 Appointment: [facility] [phone] [facility] [place] (15 min) Moderate 01/24/2018 Referral: Megha [...] made. 12/13/2017 Appointment: Maude [facility]Ptel[facility] [phone] [facility] (15 min) Moderate 12/13/2017 Patient Education: Patient Medication Summary Completed 12/13/2017 Patient Education: Diabetes Completed 12/13/2017 Patient Education: Hypertension Completed 12/13/2017 Care Plan: Referral Order SNOMED-CT : [id number] Pending 12/13/2017 Appointment: Maude Man [facility]Ptel[facility] [phone] [facility] (15 min) Moderate 11/26/2017 Visit Plan: Diabetes [...] followed through 09/18/2017 Appointment: Maude Man WPtel: [facility] (15 min) Moderate 09/18/2017 Patient Education: Patient Medication Summary Completed 09/18/2017 Referral: External, Ordering Provider Patient informed. Referral info faxed. Completed 09/17/2017 Appointment: Maude Man WPtel: [facility] [place] (15 min) Moderate 09/06/2017 Visit Plan: [...] Gracia. 08/23/2017 Appointment: Maude Man [facility]Ptel[facility] [phone] [facility] [place] (15 min) Moderate 08/23/2017 Patient Education: Patient Medication Summary Completed 08/23/2017 Care Plan: Comp Metabolic Cancelled 08/23/2017 Care Plan: Cbc With Differential Cancelled 08/23/2017 Care Plan: %Hba1C NATTY C : 75084-7 Cancelled 08/23/2017 Care Plan: Magnesium Cancelled 08/23/2017 Care Plan: Referral Order SNOMED-CT : [id number] Pending 08/23/2017 Appointment: Maude Man WPtel: [phone] [facility] [place] (15 min) Moderate 08/13/2017 Visit Plan: CGM removed - pt tolera jomar procedure well - no changes at this time. 06/25/2017 Patient Education: Patient Medication Summary Completed 06/25/2017 Appointment: Maude [facility]Ptel[facility] [phone] [facility] [place] (15 min) Moderate 06/21/2017 Visit Plan: [...] control. 06/20/2017 [phone] (30 min) Complex 06/20/2017 Patient Education: Patient Medication Summary Completed 06/20/2017 Visit Plan: Diabetes Mellitus - [facility] ontrolled - per recent FSBS [...] Completed 06/11/2017 Visit Plan: Diabetes Mellitus - [facility] ontrolled - per recent FSBS [...] Summary Completed 06/04/2017 Appointment: Ana Burrell WPtel: [facility]5 [phone] (30 min) Complex 05/31/2017 Appointment: Ana Burrell WPtel: [facility]5 [phone] (30 min) Complex 05/29/2017 Appointment: Ana Burrell WPtel: [address] [place], [place] [phone] (30 min) Complex 05/24/2017 Visit Plan: Left [...] current medications. 04/24/2017 Appointment: Ana Burrell WPtel: [address] [place], [place] [phone] [place] [address] New Patient 04/24/2017 Patient Education: Patient Medication Summary Completed 04/24/2017 Appointment: Shae Guerrero WPtel: [address] [place], [place] [address] New Patient 04/20/2017 Referral: External, Ordering Provider [...]
--- OUTSIDE RECORDS SUMMARY | 2019-01-29 06:17 | XMS REPORT | CCD ---
Author Author Baylee Burrell Organization Maude Man MD, [facility] Address [address] [place] [address] Phone Care Team Providers Care Padded Box Sewer Name Role Phone PP Unavailable CCM Unavailable Summary Purpose Interface Exchange Insurance Providers Payer name Policy type / Coverage type Covered green party ID Effective Begin Date Effective End Date WPS Medicare Part B Blue Cross/Blue Shield [id number] Unknown Blue Cross Blue Shield [facility] e Cross/Blue Shield [id number] Un known Blue Cross/Blue Shield [id number] Unknown Family history Sister Diagnosis Age At [...] 1 04/24/2017 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/[address]: 857636847 Never smoker 04/24/[address]: 463991083 Never drinks alcohol 04/24/2017 Allergies, Adverse Reactions, Alerts Substance Reaction Codes Entered Date Inactivated Date Status Levaquin RxNorm: 48322 04/24/2017 No Inactive Date Active Past Medical [...] Date Stop Date Sta tus Fill Instructions Toujeo SoloStar U-30 0 Insulin 300 unit/mL (1.5 mL) subcutaneous pen RxNorm: 9472078 Unit(s) INJECT 45 UNITS UNDER THE SKIN DAILY 02/22/2018 07/21/2018 Active 30 day supply Toujeo SoloStar U-30 0 Insulin 300 unit/mL (1.5 mL) subcutaneous pen RxNorm: 8243552 INJECT 40 UNITS UNDER THE SKIN DAILY 02/21/2018 02/21/2018 Inactive Keflex 500 mg capsule RxNorm: 343830 1 Capsule(s) PO TID 02/01/2018 02/07/2018 Inactive Toujeo SoloStar U-30 0 Insulin 300 unit/mL (1.5 mL) subcutaneous pen RxNorm: 0863886 45 Unit(s) SQ daily 12/26/2017 No Stop Date Active atorvastatin 40 mg t ablet RxNorm: 470314 Tablet(s) TAKE ONE-REA LF TABLET BY MOUTH EVERY EVENING 12/26/2017 No Stop Date Active Restasis 0.05 % eye drops in a dropperette RxNorm: 522418 INSTILL ONE DROP IN E ACH EYE EVERY 12 HOURS 12/24/2017 04/22/2018 Active atorvastatin 40 mg t ablet RxNorm: 689973 TAKE ONE TABLET BY [facility] EVERY EVENING 12/17/2017 12/25/2017 In active venlafaxine ER 150 m g tablet,extended release 24 hr RxNorm: 672943 TAKE ONE CAPSULE BY MOUTH DAILY 10/11/2017 07/07/2018 Active metoprolol succinate ER 50 mg tablet,extended release 24 hr RxNorm: 382984 TAKE ONE TABLET BY MOUTH DAILY 10/11/2017 07/07/2018 Active atorvastatin 40 mg t ablet RxNorm: 812856 TAKE ONE TABLET BY MO [facility] EVERY EVENING 10/11/2017 12/16/2017 In active metoprolol succinate ER 25 mg tablet,extended release 24 hr RxNorm: 809468 1/2 Tablet(s) PO daily 09/18/2017 03/16/2018 Active metronidazole 500 mg tablet RxNorm: 278741 1 Tablet(s) PO TID 08/23/2017 09/01/2017 Inactive Diflucan 150 mg tablet RxNorm: 274028 1 Tablet(s) PO daily 08/23/2017 09/01/2017 Inactive atorvastatin 40 mg t ablet RxNorm: 223527 1 Tablet(s) PO QPM 08/02/2017 10/10/2017 Inactive Toujeo SoloStar U-30 0 Insulin 300 unit/mL (1.5 mL) subcutaneous pen RxNorm: 1756515 40 Unit(s) SQ daily 07/30/2017 12/25/2017 Inactive Novofine 32 32 gauge x 1/4" needle RxNorm: USE TO TEST BLOOD SUGAR ONC E DAILY 07/26/2017 04/16/2019 Ac tive Toujeo SoloStar U-30 0 Insulin 300 unit/mL (1.5 mL) subcutaneous pen RxNorm: 3087590 INJECT 24 UNITS UNDER THE SKIN EVERY EVENING 07/26/2017 07/29/2017 Inactive Apidra U-100 Insulin 100 unit/mL subcutaneous solution RxNorm: 706631 5 Unit(s) SQ AC 06/06/2017 06/06/2017 Inactive start with 5 units with breakfast -call with blood sugars in 1 week Keflex 500 mg capsule RxNorm: 820219 1 Capsule(s) PO TID 06/04/2017 06/10/2017 Inactive Apidra U-100 Insulin 100 unit/mL subcutaneous solution RxNorm: 760973 5 Unit(s) SQ AC 06/04/2017 06/05/2017 Inactive start with 5 units with breakfast -call with blood sugars in 1 week Restasis 0.05 % eye drops in a dropperette RxNorm: 089833 1 gtts ophthalmic (ey e) Q12H 06/04/2017 07/03/2017 Inactive Toujeo SoloStar U-30 0 Insulin 300 unit/mL (1.5 mL) subcutaneous pen RxNorm: 5849275 28 Unit(s) SQ QPM x1 week, then 32 units daily. 04/26/2017 08/28/2017 Inactive Restasis MultiDose 0 .05 % eye drops RxNorm: 209850 1 Drop(s) ophthalmic (eye) daily - BID 04/24/2017 No Stop Date Active cyanocobalamin (vit B-12) 1,000 mcg/mL injection solution RxNorm: 555101 1 Milliliter(s) Inj QW -BIW 04/24/2017 07/22/2017 Inactive disp with syringes please Toujeo SoloStar U-30 0 Insulin 300 unit/mL (1.5 mL) subcutaneous pen RxNorm: 8676532 24 Unit(s) SQ QPM 04/24/2017 04/23/2017 Inactive Novofine 32 32 gauge x 1/4" needle RxNorm: 1 test Miscellaneous daily 04/24/2017 07/22/2017 In active E11.65 use with toudov venlafaxine ER 150 m g tablet,extended release 24 hr RxNorm: 900274 1 Tablet(s) PO daily 04/24/2017 10/10/2017 Inactive cyanocobalamin (vit B-12) 1,000 mcg/mL injection solution RxNorm: 687298 1 Milliliter(s) Inj QW -BIW 04/24/2017 04/23/2017 Inactive metoprolol succinate ER 50 mg tablet,extended release 24 hr RxNorm: 307271 1 Tablet(s) PO daily 04/24/2017 09/17/2017 Inactive Toujeo SoloStar U-30 0 Insulin 300 unit/mL (1.5 mL) subcutaneous pen RxNorm: 7356388 24 Unit(s) SQ QPM 04/24/2017 04/25/2017 Inactive Centrum Silver tablet RxNorm: 1 Tablet(s) PO daily No Start Date Active Novolog U-100 Insuli n aspart 100 unit/mL subcutaneous solution RxNorm: 310389 5 Unit(s) SQ AC No Start Date Active magnesium 250 mg tablet RxNorm: 1 Tablet(s) PO as needed No Start Date Active Probiotic Blend oral RxNorm: 733740 oral No Start Date Active Calcium 600 + D(3) 6 00 mg (1,500 mg)-400 unit tablet RxNorm: 374587 1 Tablet(s) PO as needed No Start Date Active atorvastatin 40 mg t ablet RxNorm: 904359 1 Tablet(s) PO QPM No Start Date 08/01/2017 Inactive Novofine 32 32 gauge x 1/4" needle RxNorm: 1 Miscellaneous daily No Start Date 04/23/2017 Inactive cyanocobalamin (vit B-12) 1,000 mcg/mL injection solution RxNorm: 969575 1 Milliliter(s) Inj No Start Date 04/23/2017 Inactive metoprolol succinate ER 50 mg tablet,extended release 24 hr RxNorm: 149759 1 Tablet(s) PO daily No Start Date 04/23/2017 Inactive lisinopril 5 mg tablet RxNorm: 104774 1 Tablet(s) PO QPM No Start Date 04/23/2017 Inactive Restasis MultiDose 0 .05 % eye drops RxNorm: 079545 Drop(s) ophthalmic (e ye) No Start Date 04/23/2017 Inactive venlafaxine ER 150 m g capsule,extended release 24 hr RxNorm: 458569 1 Capsule(s) PO daily No Start Date [...] maxillary sinusitis ICD-10: J01.01 ICD-9: 461.0 02/01/2018 Type 2 diabetes mellitus with hyperglycemia [...] Ord30 C/HDL 2.7 Ratio 12/13/2017 Comp Metabolic Pwh754 NA 140 mEq/L 12/13/2017 Comp Metabolic Xes987 K 4.4 mEq/L 12/13/2017 Comp Metabolic Hyt023 CL 107 mEq/L 12/13/2017 Comp Metabolic Qzy198 CO2 23.0 mEq/L 12/13/2017 Comp Metabolic Gzd550 AN ION GAP 14 12/13/2017 Comp Metabolic Kjq278 GL UCOSE 179 mg/dL 12/13/2017 Comp Metabolic Vdv867 Cr eat 1.7 mg/dL 12/13/2017 Comp Metabolic Sca086 eG FR 31 ml/min/1.73m2 12/13 Comp Metabolic Agx849 BUN 40 mg/dL 12/13/2017 Comp Metabolic Oka818 B/ C Ratio 23.3 Ratio 12/13/2017 Comp Metabolic Hwu440 CA LCIUM 10.3 mg/dL 12/13/2017 Comp Metabolic Ajw476 AL K PHOS 54 U/L 12/13/2017 Comp Metabolic Fks421 T(SGOT) 41 U/L 12/13/2017 Comp Metabolic Sus552 AL T(SGPT) 44 U/L 12/13/2017 Comp Metabolic Rxz863 BI LI T 0.4 mg/dL 12/13/2017 Comp Metabolic Xnt851 AL BUMIN 4.9 g/dL 12/13/2017 Comp Metabolic Uor795 TP RO 7.7 g/dL 12/13/2017 Comp Metabolic Xoi221 GL OB 2.8 g/dL 12/13/2017 Comp Metabolic Ttf850 A/ G Ratio 1.8 Ratio 12/13/2017 Comp Metabolic Yfd874 Os mo 294 mOsmo 12/13/2017 Tsh Ord6 TSH (3rd IS) 2.56 uIU/mL 12/13/2017 %Hba1C Msu716 % HbA1c 17541-5 9.6 % 12/13/2017 %Hba1C Avt814 Gluc Ave 229 mg/dL 12/13/2017 Cbc With [...] 32.0 pg 12/13/2017 Cbc With Differential Ord2 [place]% 8.0 % 12/13/2017 Cbc With Differential Ord2 [...] 1.44 K/ul 12/13/2017 Cbc With Differential Ord2 [place] ABS# 0.5 K/ul 12/13/2017 Cbc With Differential Ord2 Eos ABS# 0.1 K/ul 12/13/2017 Cbc With Differential Ord2 Baso ABS# 0.0 K/ul 12/13/2017 %Hba1C Dtj564 % HbA1c 04382-1 13.1 % 04/24/2017 %Hba1C Iea171 Gluc Ave 329 mg/dL 04/24/2017 Cbc With [...] 32.0 pg 04/24/2017 Cbc With Differential Ord2 [place]% 11.0 % 04/24/2017 Cbc With Differential Ord2 [...] 2.39 K/ul 04/24/2017 Cbc With Differential Ord2 [place] ABS# 0.8 K/ul 04/24/2017 Cbc With Differential Ord2 Eos ABS# 0.1 K/ul 04/24/2017 Cbc With Differential Ord2 Baso ABS# 0.0 K/ul 04/24/2017 Comp Metabolic Foj017 NA 142 mEq/L 04/24/2017 Comp Metabolic Sof822 K 3.8 mEq/L 04/24/2017 Comp Metabolic Kmc036 CL 105 mEq/L 04/24/2017 Comp Metabolic Twq424 CO2 27.0 mEq/L 04/24/2017 Comp Metabolic Ngq327 AN ION GAP 14 04/24/2017 Comp Metabolic Odc133 GL UCOSE 203 mg/dL 04/24/2017 Comp Metabolic Rki848 Cr eat 1.9 mg/dL 04/24/2017 Comp Metabolic Vpx757 eG FR 28 ml/min/1.73m2 04/24 Comp Metabolic Gog807 BUN 26 mg/dL 04/24/2017 Comp Metabolic Hts423 B/ C Ratio 13.6 Ratio 04/24/2017 Comp Metabolic Fpz346 CA LCIUM 9.9 mg/dL 04/24/2017 Comp Metabolic Gll545 AL K PHOS 79 U/L 04/24/2017 Comp Metabolic Mpu524 T(SGOT) 25 U/L 04/24/2017 Comp Metabolic Xyj213 AL T(SGPT) 36 U/L 04/24/2017 Comp Metabolic Sjs289 BI LI T 0.3 mg/dL 04/24/2017 Comp Metabolic Fzd437 AL BUMIN 4.5 g/dL 04/24/2017 Comp Metabolic Xqy594 TP RO 6.9 g/dL 04/24/2017 Comp Metabolic Yup873 GL OB 2.5 g/dL 04/24/2017 Comp Metabolic Gpj670 A/ G Ratio 1.8 Ratio 04/24/2017 Comp Metabolic Mbt861 Os mo 294 mOsmo 04/24/2017 Review of [...] GLUC MONITOR CONT PH YS I&R CPT-4: 50502 09/18/2017 GLUCOSE MONITORING CONT CPT-4: 94442 06/20/2017 Vital Signs Date Vital 02/01/2018 Blood Pressure 1: 110/52 Code: 8480-6 BMI: 19.9 Code: 86425-6 Height: 5'6" Weight: 125 lbs 12/13/2017 Blood Pressure 1: 140/80 Code: 8480-6 BMI: 19.9 Code: 47142-8 Heart Rate 1: 72 bpm Height: 5'6" SpO2: 95% Weight: 125 lbs 09/18/2017 Blood Pressure 1: 126/82 Code: 8480-6 BMI: 20.0 Code: 89695-2 Heart Rate 1: 103 bpm Height: 5'6" SpO2: 98% Weight: 126 lbs 08/23/2017 Blood Pressure 1: 118/62 Code: 8480-6 Heart Rate 1: 110 bpm Height: 5'6" SpO2: 95% Temperature: 37.1 (C ) / 98.7 (F) 06/20/2017 Heigh t: Weight: 06/11/2017 Blood Pressure 1: 142/76 Code: 8480-6 BMI: 21.3 Code: 98567-6 Heart Rate 1: 102 bpm Height: 5'6" SpO2: 97% Weight: 134 lbs 06/04/2017 Blood Pressure 1: 160/84 Code: 8480-6 BMI: 20.8 Code: 92420-7 Heart Rate 1: 87 bpm Height: 5'6" SpO2: 97% Weight: 131 lbs 04/24/2017 Blood Pressure 1: 132/80 Code: 8480-6 BMI: 20.8 Code: 01800-8 Heart Rate 1: 84 bpm Height: 5'6" [...] Encounters Encounter Performer Loca tion Codes Date ([id number]) 09502 EST. P ATIENT, LEVEL IV Diagnosis: Acute recurrent maxillary sinusitis[ICD10: J01.01] Diagnosis: Low back pain[ICD10: M54.5] Diagnosis: Unsteadiness on feet[ICD10: R26.81] Diagnosis: Essential (primary) hypertension[ICD10: I10] Ana Man MD, [facility] CPT-4: 51091 02/01/2018 ([id number]) 91851 EST. P ATIENT, LEVEL IV Diagnosis: Type 2 diabetes mellitus with hyperglycemia[ICD10: E11.65] Diagnosis: Essential (primary) hypertension[ICD10: I10] Diagnosis: Other fatigue[ICD10: R53.83] Maude Man MD, [facility] CPT-4: 67363 12/13/2017 ([id number]) 15724 EST. P ATIENT, LEVEL IV Diagnosis: Type 2 diabetes mellitus with hyperglycemia[ICD10: E11.65] Diagnosis: Essential (primary) hypertension[ICD10: I10] Diagnosis: Major depressive disorder, recurrent, in partial remission[ICD10: F33.41] Maude Man MD, [facility] CPT-4: 23093 09/18/2017 ([id number]) 65000 EST. P ATIENT, LEVEL IV Diagnosis: Pouchitis[ICD10: K91.850] Diagnosis: Other fatigue[ICD10: R53.83] Diagnosis: Type 2 diabetes mellitus with hyperglycemia[ICD10: E11.65] Diagnosis: Essential (primary) hypertension[ICD10: I10] Diagnosis: Orthostatic hypotension[ICD10: I95.1] Maude Man MD, [facility] CPT-4: 65752 08/23/2017 ([id number]) Miscellaneou s no charge Diagnosis: Type 2 diabetes mellitus with hyperglycemia[ICD10: E11.65] Shae Man MD, [facility] CPT-4: 36318 06/25/2017 ([id number]) 76206 EST. P ATIENT, LEVEL IV Diagnosis: Type 2 diabetes mellitus with hyperglycemia[ICD10: E11.65] Maude Man MD, [facility] CPT-4: 23637 06/11/2017 ([id number]) 32927 EST. P ATIENT, LEVEL IV Diagnosis: Type 2 diabetes mellitus with hyperglycemia[ICD10: E11.65] Diagnosis: Essential (primary) hypertension[ICD10: I10] Diagnosis: Acute recurrent maxillary sinusitis[ICD10: J01.01] Ana Man MD, [facility] CPT-4: 54723 06/04/2017 OFFICE VISIT, NEW - LEVEL 4 Diagnosis: Left lower quadrant pain[ICD10: R10.32] Diagnosis: Other ulcerative colitis with unspecified complications[ICD10: K51.819] Diagnosis: Essential (primary) hypertension[ICD10: I10] Diagnosis: Type 2 diabetes mellitus without complications[ICD10: E11.9] Diagnosis: Major depressive disorder, recurrent, in partial remission[ICD10: F33.41] Diagnosis: Melena[ICD10: K92.1] Ana Man MD, [facility] CPT-4: 92734 04/24/2017 Plan of Care Planned Activity Notes [...] [facility] [phone] [facility] [place] [place] (15 min) Moderate 01/24/2018 Referral: Megha [...] been made. 12/13/2017 Appointment: Maude Man WPtel: [phone] [facility] (15 min) Moderate 12/13/2017 Patient Education: Patient Medication Summary Completed 12/13/2017 Patient Education: Diabetes Completed 12/13/2017 Patient Education: Hypertension Completed 12/13/2017 Care Plan: Referral Order SNOMED-CT : 120493652 Pending 12/13/2017 Appointment: Maude Man WPtel: [phone] [facility] [address] [place] [address] (15 min) Moderate 11/26/2017 Visit Plan: Diabetes [...] through 09/18/2017 Appointment: Maude Man WPtel: [phone] [facility] [address] [place] [address] (15 min) Moderate 09/18/2017 Patient Education: Patient Medication Summary Completed 09/18/2017 Referral: External, Ordering Provider Patient informed. Referral info faxed. Completed 09/17/2017 Appointment: Maude Man WPtel: [phone] [facility] [address] [place] [address] (15 min) Moderate 09/06/2017 Visit Plan: Pouchitis [...] Gracia. 08/23/2017 Appointment: Maude Man WPtel: [phone] [facility] [address] [place] (15 min) Moderate 08/23/2017 Patient Education: Patient Medication Summary Completed 08/23/2017 Care Plan: Comp Metabolic Cancelled 08/23/2017 Care Plan: Cbc With Differential Cancelled 08/23/2017 Care Plan: %Hba1C NATTY C : 71334-5 Cancelled 08/23/2017 Care Plan: Magnesium Cancelled 08/23/2017 Care Plan: Referral Order SNOMED-CT : 725828951 Pending 08/23/2017 Appointment: Maude Man WPtel: [phone] [facility] [address] [place] [address] [place] (15 min) Moderate 08/13/2017 Visit Plan: CGM removed - pt tolera jomar procedure well - no changes at this time. 06/25/2017 Patient Education: Patient Medication Summary Completed 06/25/2017 Appointment: Maude Man WPtel: [phone] [facility] [address] [place] [address] [place] (15 min) Moderate 06/21/2017 Visit Plan: [...] glucose control. 06/20/2017 [phone] [facility] [place] ([facility] min) Complex 06/20/2017 Patient Education: [...] Completed 06/04/2017 App[facility]ment: [facility] [phone] [facility] [place] (30 min) Complex 05/31/2017 App[facility]ment: [facility] [phone] [facility] [place] (30 min) Complex 05/29/2017 Appointment: [facility] [phone] [facility] (30 min) Complex 05/24/2017 Visit Plan: Left [...] medications. 04/24/2017 App[facility]ment: [facility] [phone] [facility] New Patient 04/24/2017 Patient Education: Patient Medication Summary Completed 04/24/2017 Appointment: Shae Guerrero [facility]el[facility] [place] [facility] 04/20/2017 Referral: External, Ordering Provider [...]
--- OUTSIDE RECORDS SUMMARY | 2019-01-29 06:17 | XMS REPORT | CCD ---
Author Author Baylee Burrell Organization Maude Man MD, [facility] Address [address] [place] [address] Phone Care Team Providers Care Sweet Dough Mixer Name Role Phone PP Unavailable CCM Unavailable Summary Purpose Interface Exchange Insurance Providers Payer name Policy type / Coverage type Covered democrat ID Effective Begin Date Effective End Date WPS Medicare Part B Blue Cross/Blue Shield [id number] Unknown Blue Cross Blue Shield 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 04/24/[address]: 738574424 Never smoker 04/24/[address]: 667110977 Never drinks alcohol 04/24/2017 Allergies, Adverse Reactions, Alerts Substance Reaction Codes Entered Date Inactivated Date Status Levaquin RxNorm: 28303 04/24/2017 No Inactive Date Active Past Medical [...] 300 unit/mL (1.5 mL) subcutaneous pen RxNorm: 9187946 INJECT 40 UNITS UNDER THE SKIN DAILY 02/21/2018 07/20/2018 Active Keflex 500 mg capsule RxNorm: 200910 1 Capsule(s) PO TID 02/01/2018 02/07/2018 Inactive Toujeo SoloStar U-30 0 Insulin 300 unit/mL (1.5 mL) subcutaneous pen RxNorm: 6789543 45 Unit(s) SQ daily 12/26/2017 No Stop Date Active atorvastatin 40 mg t ablet RxNorm: 305753 Tablet(s) TAKE ONE-REA LF TABLET BY MOUTH EVERY EVENING 12/26/2017 No Stop Date Active Restasis 0.05 % eye drops in a dropperette RxNorm: 859675 INSTILL ONE DROP IN E ACH EYE EVERY 12 HOURS 12/24/2017 04/22/2018 Active atorvastatin 40 mg t ablet RxNorm: 131307 TAKE ONE TABLET BY MO UT EVERY EVENING 12/17/2017 12/25/2017 In active venlafaxine ER 150 m g tablet,extended release 24 hr RxNorm: 380398 TAKE ONE CAPSULE BY MOUTH DAILY 10/11/2017 07/07/2018 Active metoprolol succinate ER 50 mg tablet,extended release 24 hr RxNorm: 547450 TAKE ONE TABLET BY MOUTH DAILY 10/11/2017 07/07/2018 Active atorvastatin 40 mg t ablet RxNorm: 002382 TAKE ONE TABLET BY [facility] EVERY EVENING 10/11/2017 12/16/2017 In active metoprolol succinate ER 25 mg tablet,extended release 24 hr RxNorm: 842576 1/2 Tablet(s) PO daily 09/18/2017 03/16/2018 Active metronidazole 500 mg tablet RxNorm: 475086 1 Tablet(s) PO TID 08/23/2017 09/01/2017 Inactive Diflucan 150 mg tablet RxNorm: 861157 1 Tablet(s) PO daily 08/23/2017 09/01/2017 Inactive atorvastatin 40 mg t ablet RxNorm: 964068 1 Tablet(s) PO QPM 08/02/2017 10/10/2017 Inactive Toujeo SoloStar U-30 0 Insulin 300 unit/mL (1.5 mL) subcutaneous pen RxNorm: 3420840 40 Unit(s) SQ daily 07/30/2017 12/25/2017 Inactive Novofine 32 32 gauge x 1/4" needle RxNorm: USE TO TEST BLOOD SUGAR ONC E DAILY 07/26/2017 04/16/2019 Ac tive Toujeo SoloStar U-30 0 Insulin 300 unit/mL (1.5 mL) subcutaneous pen RxNorm: 4420324 INJECT 24 UNITS UNDER THE SKIN EVERY EVENING 07/26/2017 07/29/2017 Inactive Apidra U-100 Insulin 100 unit/mL subcutaneous solution RxNorm: 745404 5 Unit(s) SQ AC 06/06/2017 06/06/2017 Inactive start with 5 units with breakfast -call with blood sugars in 1 week Keflex 500 mg capsule RxNorm: 979813 1 Capsule(s) PO TID 06/04/2017 06/10/2017 Inactive Apidra U-100 Insulin 100 unit/mL subcutaneous solution RxNorm: 560656 5 Unit(s) SQ AC 06/04/2017 06/05/2017 Inactive start with 5 units with breakfast -call with blood sugars in 1 week Restasis 0.05 % eye drops in a dropperette RxNorm: 665477 1 gtts ophthalmic (ey e) Q12H 06/04/2017 07/03/2017 Inactive Toujeo SoloStar U-30 0 Insulin 300 unit/mL (1.5 mL) subcutaneous pen RxNorm: 9913029 28 Unit(s) SQ QPM x1 week, then 32 units daily. 04/26/2017 08/28/2017 Inactive Restasis MultiDose 0 .05 % eye drops RxNorm: 121380 1 Drop(s) ophthalmic (eye) daily - BID 04/24/2017 No Stop Date Active cyanocobalamin (vit B-12) 1,000 mcg/mL injection solution RxNorm: 171305 1 Milliliter(s) Inj QW -BIW 04/24/2017 07/22/2017 Inactive disp with syringes please Toujeo SoloStar U-30 0 Insulin 300 unit/mL (1.5 mL) subcutaneous pen RxNorm: 2328130 24 Unit(s) SQ QPM 04/24/2017 04/23/2017 Inactive Novofine 32 32 gauge x 1/4" needle RxNorm: 1 test Miscellaneous daily 04/24/2017 07/22/2017 In active E11.65 use with toujeo venlafaxine ER 150 m g tablet,extended release 24 hr RxNorm: 658171 1 Tablet(s) PO daily 04/24/2017 10/10/2017 Inactive cyanocobalamin (vit B-12) 1,000 mcg/mL injection solution RxNorm: 559860 1 Milliliter(s) Inj QW -BIW 04/24/2017 04/23/2017 Inactive metoprolol succinate ER 50 mg tablet,extended release 24 hr RxNorm: 693906 1 Tablet(s) PO daily 04/24/2017 09/17/2017 Inactive Toujeo SoloStar U-30 0 Insulin 300 unit/mL (1.5 mL) subcutaneous pen RxNorm: 1666328 24 Unit(s) SQ QPM 04/24/2017 04/25/2017 Inactive Centrum Silver tablet RxNorm: 1 Tablet(s) PO daily No Start Date Active Novolog U-100 Insuli n aspart 100 unit/mL subcutaneous solution RxNorm: 047368 5 Unit(s) SQ AC No Start Date Active magnesium 250 mg tablet RxNorm: 1 Tablet(s) PO as needed No Start Date Active Probiotic Blend oral RxNorm: 427076 oral No Start Date Active Calcium 600 + D(3) 6 00 mg (1,500 mg)-400 unit tablet RxNorm: 136505 1 Tablet(s) PO as needed No Start Date Active atorvastatin 40 mg t ablet RxNorm: 507069 1 Tablet(s) PO QPM No Start Date 08/01/2017 Inactive Novofine 32 32 gauge x 1/4" needle RxNorm: 1 Miscellaneous daily No Start Date 04/23/2017 Inactive cyanocobalamin (vit B-12) 1,000 mcg/mL injection solution RxNorm: 441054 1 Milliliter(s) Inj No Start Date 04/23/2017 Inactive metoprolol succinate ER 50 mg tablet,extended release 24 hr RxNorm: 416257 1 Tablet(s) PO daily No Start Date 04/23/2017 Inactive lisinopril 5 mg tablet RxNorm: 309588 1 Tablet(s) PO QPM No Start Date 04/23/2017 Inactive Restasis MultiDose 0 .05 % eye drops RxNorm: 315810 Drop(s) ophthalmic (e ye) No Start Date 04/23/2017 Inactive venlafaxine ER 150 m g capsule,extended release 24 hr RxNorm: 308418 1 Capsule(s) PO daily No Start Date [...] Ord30 C/HDL 2.7 Ratio 12/13/2017 Comp Metabolic Tim905 NA 140 mEq/L 12/13/2017 Comp Metabolic Npp950 K 4.4 mEq/L 12/13/2017 Comp Metabolic Mbs550 CL 107 mEq/L 12/13/2017 Comp Metabolic Tqk284 CO2 23.0 mEq/L 12/13/2017 Comp Metabolic Sgu753 AN ION GAP 14 12/13/2017 Comp Metabolic Idd037 GL UCOSE 179 mg/dL 12/13/2017 Comp Metabolic Vhw319 Cr eat 1.7 mg/dL 12/13/2017 Comp Metabolic Kfr990 eG FR 31 ml/min/1.73m2 12/13 Comp Metabolic Eai073 BUN 40 mg/dL 12/13/2017 Comp Metabolic Ccx631 B/ C Ratio 23.3 Ratio 12/13/2017 Comp Metabolic Cnb637 CA LCIUM 10.3 mg/dL 12/13/2017 Comp Metabolic Xqe087 AL K PHOS 54 U/L 12/13/2017 Comp Metabolic Wkr854 T(SGOT) 41 U/L 12/13/2017 Comp Metabolic Znn171 AL T(SGPT) 44 U/L 12/13/2017 Comp Metabolic Cwa289 BI LI T 0.4 mg/dL 12/13/2017 Comp Metabolic Ajs278 AL BUMIN 4.9 g/dL 12/13/2017 Comp Metabolic Ves554 TP RO 7.7 g/dL 12/13/2017 Comp Metabolic Ryf452 GL OB 2.8 g/dL 12/13/2017 Comp Metabolic Cfi660 A/ G Ratio 1.8 Ratio 12/13/2017 Comp Metabolic Tbl511 Os mo 294 mOsmo 12/13/2017 Tsh Ord6 TSH (3rd IS) 2.56 uIU/mL 12/13/2017 %Hba1C Nya793 % HbA1c 04214-8 9.6 % 12/13/2017 %Hba1C Tnw501 Gluc Ave 229 mg/dL 12/13/2017 Cbc With [...] 32.0 pg 12/13/2017 Cbc With Differential Ord2 [place]% 8.0 % 12/13/2017 Cbc With Differential Ord2 [...] 1.44 K/ul 12/13/2017 Cbc With Differential Ord2 [place] ABS# 0.5 K/ul 12/13/2017 Cbc With Differential Ord2 Eos ABS# 0.1 K/ul 12/13/2017 Cbc With Differential Ord2 Baso ABS# 0.0 K/ul 12/13/2017 %Hba1C Plw612 % HbA1c 15738-3 13.1 % 04/24/2017 %Hba1C Qfw995 Gluc Ave 329 mg/dL 04/24/2017 Cbc With [...] 96.4 fl 04/24/2017 Cbc With Differential Ord2 [place]% 11.0 % 04/24/2017 Cbc With Differential Ord2 MCH 32.0 pg 04/24/2017 Cbc With Differential Ord2 MCHC 33.2 pg 04/24/2017 Cbc With Differential Ord2 Eos% 1.6 % 04/24/2017 Cbc With Differential Ord2 Baso% 0.1 % 04/24/2017 Cbc With Differential Ord2 PLT 214 K/ul 04/24/2017 Cbc With Differential Ord2 Neut ABS# 4.29 K/ul 04/24/2017 Cbc With Differential Ord2 RDW 12.8 % 04/24/2017 Cbc With Differential Ord2 Lymph ABS# 2.39 K/ul 04/24/2017 Cbc With Differential Ord2 [place] ABS# 0.8 K/ul 04/24/2017 Cbc With Differential Ord2 Eos ABS# 0.1 K/ul 04/24/2017 Cbc With Differential Ord2 Baso ABS# 0.0 K/ul 04/24/2017 Comp Metabolic Fzs567 NA 142 mEq/L 04/24/2017 Comp Metabolic Fan829 K 3.8 mEq/L 04/24/2017 Comp Metabolic Rym851 CL 105 mEq/L 04/24/2017 Comp Metabolic Yok743 CO2 27.0 mEq/L 04/24/2017 Comp Metabolic Xkl805 AN ION GAP 14 04/24/2017 Comp Metabolic Wsb135 GL UCOSE 203 mg/dL 04/24/2017 Comp Metabolic Rwj980 Cr eat 1.9 mg/dL 04/24/2017 Comp Metabolic Tgo984 eG FR 28 ml/min/1.73m2 04/24 Comp Metabolic Bhs153 BUN 26 mg/dL 04/24/2017 Comp Metabolic Tea394 B/ C Ratio 13.6 Ratio 04/24/2017 Comp Metabolic Kyy581 CA LCIUM 9.9 mg/dL 04/24/2017 Comp Metabolic Ads129 AL K PHOS 79 U/L 04/24/2017 Comp Metabolic Mbh443 T(SGOT) 25 U/L 04/24/2017 Comp Metabolic Unm286 AL T(SGPT) 36 U/L 04/24/2017 Comp Metabolic Aim025 BI LI T 0.3 mg/dL 04/24/2017 Comp Metabolic Zjg792 AL BUMIN 4.5 g/dL 04/24/2017 Comp Metabolic Mrb918 TP RO 6.9 g/dL 04/24/2017 Comp Metabolic Rwg049 GL OB 2.5 g/dL 04/24/2017 Comp Metabolic Rmu822 A/ G Ratio 1.8 Ratio 04/24/2017 Comp Metabolic Uyi379 Os mo 294 mOsmo 04/24/2017 Review of [...] GLUC MONITOR CONT PH YS I&R CPT-4: 71490 09/18/2017 GLUCOSE MONITORING CONT CPT-4: 15451 06/20/2017 Vital Signs Date Vital 02/01/2018 Blood Pressure 1: 110/52 Code: 8480-6 BMI: 19.9 Code: 57935-0 Height: 5'6" Weight: 125 lbs 12/13/2017 Blood Pressure 1: 140/80 Code: 8480-6 BMI: 19.9 Code: 35169-0 Heart Rate 1: 72 bpm Height: 5'6" SpO2: 95% Weight: 125 lbs 09/18/2017 Blood Pressure 1: 126/82 Code: 8480-6 BMI: 20.0 Code: 51821-8 Heart Rate 1: 103 bpm Height: 5'6" SpO2: 98% Weight: 126 lbs 08/23/2017 Blood Pressure 1: 118/62 Code: 8480-6 Heart Rate 1: 110 bpm Height: 5'6" SpO2: 95% Temperature: 37.1 (C ) / 98.7 (F) 06/20/2017 Heigh t: Weight: 06/11/2017 Blood Pressure 1: 142/76 Code: 8480-6 BMI: 21.3 Code: 88934-2 Heart Rate 1: 102 bpm Height: 5'6" SpO2: 97% Weight: 134 lbs 06/04/2017 Blood Pressure 1: 160/84 Code: 8480-6 BMI: 20.8 Code: 53926-2 Heart Rate 1: 87 bpm Height: 5'6" SpO2: 97% Weight: 131 lbs 04/24/2017 Blood Pressure 1: 132/80 Code: 8480-6 BMI: 20.8 Code: 97081-2 Heart Rate 1: 84 bpm Height: 5'6" [...] Encounters Encounter Performer Loca tion Codes Date ([id number]) 98627 EST. P ATIENT, LEVEL IV Diagnosis: Acute recurrent maxillary sinusitis[ICD10: J01.01] Diagnosis: Low back pain[ICD10: M54.5] Diagnosis: Unsteadiness on feet[ICD10: R26.81] Diagnosis: Essential (primary) hypertension[ICD10: I10] Ana Man MD, [facility] CPT-4: 89226 02/01/2018 ([id number]) 67771 EST. P ATIENT, LEVEL IV Diagnosis: Type 2 diabetes mellitus with hyperglycemia[ICD10: E11.65] Diagnosis: Essential (primary) hypertension[ICD10: I10] Diagnosis: Other fatigue[ICD10: R53.83] Maude Man MD, [facility] CPT-4: 60732 12/13/2017 ([id number]) 09816 EST. 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 P ATIENT, LEVEL IV Diagnosis: Pouchitis[ICD10: K91.850] Diagnosis: Other fatigue[ICD10: R53.83] Diagnosis: Type 2 diabetes mellitus with hyperglycemia[ICD10: E11.65] Diagnosis: Essential (primary) hypertension[ICD10: I10] Diagnosis: Orthostatic hypotension[ICD10: I95.1] Maude Man MD, [facility] CPT-4: 13131 08/23/2017 ([id number]) Melindacellron jackson no charge Diagnosis: Type 2 diabetes mellitus with hyperglycemia[ICD10: E11.65] Shae Man MD, [facility] CPT-4: 51463 06/25/2017 ([id number]) 83489 EST. P ATIENT, LEVEL IV Diagnosis: Type 2 diabetes mellitus with hyperglycemia[ICD10: E11.65] Maude Man MD, [facility] CPT-4: 42217 06/11/2017 ([id number]) 38412 EST. P ATIENT, LEVEL IV Diagnosis: Type 2 diabetes mellitus with hyperglycemia[ICD10: E11.65] Diagnosis: Essential (primary) hypertension[ICD10: I10] Diagnosis: Acute recurrent maxillary sinusitis[ICD10: J01.01] Ana Man MD, [facility] CPT-4: 92916 06/04/2017 OFFICE VISIT, NEW - LEVEL 4 Diagnosis: Left lower quadrant pain[ICD10: R10.32] Diagnosis: Other ulcerative colitis with unspecified complications[ICD10: K51.819] Diagnosis: Essential (primary) hypertension[ICD10: I10] Diagnosis: Type 2 diabetes mellitus without complications[ICD10: E11.9] Diagnosis: Major depressive disorder, recurrent, in partial remission[ICD10: F33.41] Diagnosis: Melena[ICD10: K92.1] [facility] CPT-4: 96702 04/24/2017 Plan of Care Planned Activity Notes [...] appt 02/01/2018 Appointment: Ana Burrell WPtel: [phone] [phone] (30 min) Complex 02/01/2018 Patient Education: Patient Medication Summary Completed 02/01/2018 Patient Education: Back Pain Completed 02/01/2018 Patient Education: Hypertension Completed 02/01/2018 [phone] [facility] [place] ([facility] min) Moderate 01/24/2018 Referral: Megha [...] Gracia. Referral has been made. 12/13/2017 [facility] [phone] [facility] ([facility] min) Moderate 12/13/2017 Patient Education: Patient Medication Summary Completed 12/13/2017 Patient Education: Diabetes Completed 12/13/2017 Patient Education: Hypertension Completed 12/13/2017 Care Plan: Referral Order SNOMED-CT : 411945210 Pending 12/13/2017 [facility] [phone] [facility] [place] (15 min) Moderate 11/26/2017 [...] followed through 09/18/2017 Appointment: Maude Man WPtel: [phone] [facility] [place] (15 min) Moderate 09/18/2017 Patient Education: Patient Medication Summary Completed 09/18/2017 Referral: External, Ordering Provider Patient informed. Referral info faxed. Completed 09/17/2017 Appointment: Maude Man WPtel: [phone] [facility] [place] (15 min) Moderate 09/06/2017 Visit Plan: [...] Gracia. 08/23/2017 [facility] [phone] [facility] [place] ([facility] min) Moderate 08/23/2017 Patient Education: Patient Medication Summary Completed 08/23/2017 Care Plan: Comp Metabolic Cancelled 08/23/2017 Care Plan: Cbc With Differential Cancelled 08/23/2017 Care Plan: %Hba1C LOIN C : 44176-9 Cancelled 08/23/2017 Care Plan: Magnesium Cancelled 08/23/2017 Care Plan: Referral Order SNOMED-CT : [id number] Pending 08/23/2017 [facility] [phone] [facility] [place] ([facility] min) Moderate 08/13/2017 Visit Plan: CGM removed - pt tolera jomar procedure well - no changes at this time. 06/25/2017 Patient Education: Patient Medication Summary Completed 06/25/2017 [facility] [phone] [facility] ([facility]) Moderate 06/21/2017 Visit [...] control. 06/20/2017 [facility] [phone] [facility] ([facility]) Complex 06/20/2017 Patient Education: [...] Completed 06/04/2017 [facility] [phone] [facility] [place] (30 min) Complex 05/31/2017 [facility] [phone] [facility] [place] (30 min) Complex 05/29/2017 [facility]: [facility] [phone] [facility] (30 min) Complex 05/24/2017 Visit Plan: [...] current medications. 04/24/2017 [facility] [phone] [facility] New Patient 04/24/2017 Patient Education: Patient Medication Summary Completed 04/24/2017 App[facility]ment: [facility] [phone] [facility] [facility] Patient 04/20/2017 Referral: External, Ordering [...]
--- OUTSIDE RECORDS SUMMARY | 2019-01-29 06:18 | XMS REPORT | CCD ---
Author Author Baylee Burrell Organization Maude Man MD, [facility] Address [address] [place] [address] Phone Care Team Providers Care Silhouette Artist Name Role Phone PP Unavailable CCM Unavailable Summary Purpose Interface Exchange Insurance Providers Payer name Policy type / Coverage type Covered constitution party ID Effective Begin Date Effective End Date WPS Medicare Part B Blue Cross/Blue Shield [id number] Unknown Blue Cross Blue Shield [facility] [place] e Cross/Blue Shield [id number] Un known Blue Cross/Blue Shield [id number] Unknown Family history Sister Diagnosis Age At [...] 1 04/24/2017 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[address]: 541101580 Never smoker 04/24/[address]: 733927293 Never drinks alcohol 04/24/2017 Allergies, Adverse Reactions, Alerts Substance Reaction Codes Entered Date Inactivated Date Status Levaquin RxNorm: 97718 04/24/2017 No Inactive Date Active Past Medical [...] Date Stop Date Sta tus Fill Instructions Keflex 500 mg capsule RxNorm: 386738 1 Capsule(s) PO TID 02/01/2018 02/07/2018 Active Sudeep Chang U-30 0 Insulin 300 unit/mL (1.5 mL) subcutaneous pen RxNorm: 2323173 45 Unit(s) SQ daily 12/26/2017 No Stop Date Active atorvastatin 40 mg t ablet RxNorm: 887123 Tablet(s) TAKE ONE-REA LF TABLET BY MOUTH EVERY EVENING 12/26/2017 No Stop Date Active Restasis 0.05 % eye drops in a dropperette RxNorm: 702108 INSTILL ONE DROP IN E ACH EYE EVERY 12 HOURS 12/24/2017 04/22/2018 Active atorvastatin 40 mg t ablet RxNorm: 149038 TAKE ONE TABLET BY MO UTH EVERY EVENING 12/17/2017 12/25/2017 In active venlafaxine ER 150 m g tablet,extended release 24 hr RxNorm: 504839 TAKE ONE CAPSULE BY MOUTH DAILY 10/11/2017 07/07/2018 Active metoprolol succinate ER 50 mg tablet,extended release 24 hr RxNorm: 375085 TAKE ONE TABLET BY MOUTH DAILY 10/11/2017 07/07/2018 Active atorvastatin 40 mg t ablet RxNorm: 198463 TAKE ONE TABLET BY [facility] EVERY EVENING 10/11/2017 12/16/2017 In active metoprolol succinate ER 25 mg tablet,extended release 24 hr RxNorm: 709671 1/2 Tablet(s) PO daily 09/18/2017 03/16/2018 Active metronidazole 500 mg tablet RxNorm: 417962 1 Tablet(s) PO TID 08/23/2017 09/01/2017 Inactive Diflucan 150 mg tablet RxNorm: 551060 1 Tablet(s) PO daily 08/23/2017 09/01/2017 Inactive atorvastatin 40 mg t ablet RxNorm: 172694 1 Tablet(s) PO QPM 08/02/2017 10/10/2017 Inactive Toujeo SoloStar U-30 0 Insulin 300 unit/mL (1.5 mL) subcutaneous pen RxNorm: 4636750 40 Unit(s) SQ daily 07/30/2017 12/25/2017 Inactive Novofine 32 32 gauge x 1/4" needle RxNorm: USE TO TEST BLOOD SUGAR ONC E DAILY 07/26/2017 04/16/2019 Ac tive Toujeo SoloStar U-30 0 Insulin 300 unit/mL (1.5 mL) subcutaneous pen RxNorm: 9624254 INJECT 24 UNITS UNDER THE SKIN EVERY EVENING 07/26/2017 07/29/2017 Inactive Apidra U-100 Insulin 100 unit/mL subcutaneous solution RxNorm: 938102 5 Unit(s) SQ AC 06/06/2017 06/06/2017 Inactive start with 5 units with breakfast -call with blood sugars in 1 week Keflex 500 mg capsule RxNorm: 323509 1 Capsule(s) PO TID 06/04/2017 06/10/2017 Inactive Apidra U-100 Insulin 100 unit/mL subcutaneous solution RxNorm: 296189 5 Unit(s) SQ AC 06/04/2017 06/05/2017 Inactive start with 5 units with breakfast -call with blood sugars in 1 week Restasis 0.05 % eye drops in a dropperette RxNorm: 594490 1 gtts ophthalmic (ey e) Q12H 06/04/2017 07/03/2017 Inactive Toujeo SoloStar U-30 0 Insulin 300 unit/mL (1.5 mL) subcutaneous pen RxNorm: 3297480 28 Unit(s) SQ QPM x1 week, then 32 units daily. 04/26/2017 08/28/2017 Inactive Restasis MultiDose 0 .05 % eye drops RxNorm: 465019 1 Drop(s) ophthalmic (eye) daily - BID 04/24/2017 No Stop Date Active cyanocobalamin (vit B-12) 1,000 mcg/mL injection solution RxNorm: 177944 1 Milliliter(s) Inj QW -BIW 04/24/2017 07/22/2017 Inactive disp with syringes please Toujeo SoloStar U-30 0 Insulin 300 unit/mL (1.5 mL) subcutaneous pen RxNorm: 7895348 24 Unit(s) SQ QPM 04/24/2017 04/23/2017 Inactive Novofine 32 32 gauge x 1/4" needle RxNorm: 1 test Miscellaneous daily 04/24/2017 07/22/2017 In active E11.65 use with toujeo venlafaxine ER 150 m g tablet,extended release 24 hr RxNorm: 751891 1 Tablet(s) PO daily 04/24/2017 10/10/2017 Inactive cyanocobalamin (vit B-12) 1,000 mcg/mL injection solution RxNorm: 789954 1 Milliliter(s) Inj QW -BIW 04/24/2017 04/23/2017 Inactive metoprolol succinate ER 50 mg tablet,extended release 24 hr RxNorm: 230238 1 Tablet(s) PO daily 04/24/2017 09/17/2017 Inactive Toujeo SoloStar U-30 0 Insulin 300 unit/mL (1.5 mL) subcutaneous pen RxNorm: 7761640 24 Unit(s) SQ QPM 04/24/2017 04/25/2017 Inactive Centrum Silver tablet RxNorm: 1 Tablet(s) PO daily No Start Date Active Novolog U-100 Insuli n aspart 100 unit/mL subcutaneous solution RxNorm: 294162 5 Unit(s) SQ AC No Start Date Active magnesium 250 mg tablet RxNorm: 1 Tablet(s) PO as needed No Start Date Active Probiotic Blend oral RxNorm: 354970 oral No Start Date Active Calcium 600 + D(3) 6 00 mg (1,500 mg)-400 unit tablet RxNorm: 207830 1 Tablet(s) PO as needed No Start Date Active atorvastatin 40 mg t ablet RxNorm: 517358 1 Tablet(s) PO QPM No Start Date 08/01/2017 Inactive Novofine 32 32 gauge x 1/4" needle RxNorm: 1 Miscellaneous daily No Start Date 04/23/2017 Inactive cyanocobalamin (vit B-12) 1,000 mcg/mL injection solution RxNorm: 469631 1 Milliliter(s) Inj No Start Date 04/23/2017 Inactive metoprolol succinate ER 50 mg tablet,extended release 24 hr RxNorm: 601803 1 Tablet(s) PO daily No Start Date 04/23/2017 Inactive lisinopril 5 mg tablet RxNorm: 204872 1 Tablet(s) PO QPM No Start Date 04/23/2017 Inactive Restasis MultiDose 0 .05 % eye drops RxNorm: 274582 Drop(s) ophthalmic (e ye) No Start Date 04/23/2017 Inactive venlafaxine ER 150 m g capsule,extended release 24 hr RxNorm: 426653 1 Capsule(s) PO daily No Start Date [...] Ord30 C/HDL 2.7 Ratio 12/13/2017 Comp Metabolic Lrx377 NA 140 mEq/L 12/13/2017 Comp Metabolic Pde848 K 4.4 mEq/L 12/13/2017 Comp Metabolic Vxl103 CL 107 mEq/L 12/13/2017 Comp Metabolic Big326 CO2 23.0 mEq/L 12/13/2017 Comp Metabolic Mru752 AN ION GAP 14 12/13/2017 Comp Metabolic Qou865 GL UCOSE 179 mg/dL 12/13/2017 Comp Metabolic Sjn247 Cr eat 1.7 mg/dL 12/13/2017 Comp Metabolic Rfq286 eG FR 31 ml/min/1.73m2 12/13 Comp Metabolic Pvg019 BUN 40 mg/dL 12/13/2017 Comp Metabolic Zqp655 B/ C Ratio 23.3 Ratio 12/13/2017 Comp Metabolic Wlc953 CA LCIUM 10.3 mg/dL 12/13/2017 Comp Metabolic Smc654 AL K PHOS 54 U/L 12/13/2017 Comp Metabolic Fqu978 T(SGOT) 41 U/L 12/13/2017 Comp Metabolic Drs408 AL T(SGPT) 44 U/L 12/13/2017 Comp Metabolic Irt192 BI LI T 0.4 mg/dL 12/13/2017 Comp Metabolic Mwr110 AL BUMIN 4.9 g/dL 12/13/2017 Comp Metabolic Zcw647 TP RO 7.7 g/dL 12/13/2017 Comp Metabolic Mtd471 GL OB 2.8 g/dL 12/13/2017 Comp Metabolic Lop371 A/ G Ratio 1.8 Ratio 12/13/2017 Comp Metabolic Ubd196 Os mo 294 mOsmo 12/13/2017 Tsh Ord6 TSH (3rd IS) 2.56 uIU/mL 12/13/2017 %Hba1C Ijw269 % HbA1c 60134-7 9.6 % 12/13/2017 %Hba1C Gwc431 Gluc Ave 229 mg/dL 12/13/2017 Cbc With [...] 32.0 pg 12/13/2017 Cbc With Differential Ord2 Nelson% 8.0 % 12/13/2017 Cbc With Differential Ord2 [...] 1.44 K/ul 12/13/2017 Cbc With Differential Ord2 Nelson ABS# 0.5 K/ul 12/13/2017 Cbc With Differential Ord2 Eos ABS# 0.1 K/ul 12/13/2017 Cbc With Differential Ord2 Baso ABS# 0.0 K/ul 12/13/2017 %Hba1C Dnt428 % HbA1c 70977-5 13.1 % 04/24/2017 %Hba1C Qjt574 Gluc Ave 329 mg/dL 04/24/2017 Cbc With [...] 32.0 pg 04/24/2017 Cbc With Differential Ord2 Nelson% 11.0 % 04/24/2017 Cbc With Differential Ord2 [...] 2.39 K/ul 04/24/2017 Cbc With Differential Ord2 Nelson ABS# 0.8 K/ul 04/24/2017 Cbc With Differential Ord2 Eos ABS# 0.1 K/ul 04/24/2017 Cbc With Differential Ord2 Baso ABS# 0.0 K/ul 04/24/2017 Comp Metabolic Age984 NA 142 mEq/L 04/24/2017 Comp Metabolic Yzt142 K 3.8 mEq/L 04/24/2017 Comp Metabolic Vjf520 CL 105 mEq/L 04/24/2017 Comp Metabolic Mie004 CO2 27.0 mEq/L 04/24/2017 Comp Metabolic Ndv472 AN ION GAP 14 04/24/2017 Comp Metabolic Uml168 GL UCOSE 203 mg/dL 04/24/2017 Comp Metabolic Zgg578 Cr eat 1.9 mg/dL 04/24/2017 Comp Metabolic Laa347 eG FR 28 ml/min/1.73m2 04/24 Comp Metabolic Zxq382 BUN 26 mg/dL 04/24/2017 Comp Metabolic Vce034 B/ C Ratio 13.6 Ratio 04/24/2017 Comp Metabolic Oql469 CA LCIUM 9.9 mg/dL 04/24/2017 Comp Metabolic Tir503 AL K PHOS 79 U/L 04/24/2017 Comp Metabolic Dki223 T(SGOT) 25 U/L 04/24/2017 Comp Metabolic Zrr789 AL T(SGPT) 36 U/L 04/24/2017 Comp Metabolic Cjc353 BI LI T 0.3 mg/dL 04/24/2017 Comp Metabolic Zws143 AL BUMIN 4.5 g/dL 04/24/2017 Comp Metabolic Tjf177 TP RO 6.9 g/dL 04/24/2017 Comp Metabolic Pjj371 GL OB 2.5 g/dL 04/24/2017 Comp Metabolic Fnh859 A/ G Ratio 1.8 Ratio 04/24/2017 Comp Metabolic Rox462 Os mo 294 mOsmo 04/24/2017 Review of [...] GLUC MONITOR CONT PH YS I&R CPT-4: 36916 09/18/2017 GLUCOSE MONITORING CONT CPT-4: 50888 06/20/2017 Vital Signs Date Vital 02/01/2018 Blood Pressure 1: 110/52 Code: 8480-6 BMI: 19.9 Code: 57051-3 Height: 5'6" Weight: 125 lbs 12/13/2017 Blood Pressure 1: 140/80 Code: 8480-6 BMI: 19.9 Code: 82181-0 Heart Rate 1: 72 bpm Height: 5'6" SpO2: 95% Weight: 125 lbs 09/18/2017 Blood Pressure 1: 126/82 Code: 8480-6 BMI: 20.0 Code: 02402-0 Heart Rate 1: 103 bpm Height: 5'6" SpO2: 98% Weight: 126 lbs 08/23/2017 Blood Pressure 1: 118/62 Code: 8480-6 Heart Rate 1: 110 bpm Height: 5'6" SpO2: 95% Temperature: 37.1 (C ) / 98.7 (F) 06/20/2017 Heigh t: Weight: 06/11/2017 Blood Pressure 1: 142/76 Code: 8480-6 BMI: 21.3 Code: 82348-6 Heart Rate 1: 102 bpm Height: 5'6" SpO2: 97% Weight: 134 lbs 06/04/2017 Blood Pressure 1: 160/84 Code: 8480-6 BMI: 20.8 Code: 89819-6 Heart Rate 1: 87 bpm Height: 5'6" SpO2: 97% Weight: 131 lbs 04/24/2017 Blood Pressure 1: 132/80 Code: 8480-6 BMI: 20.8 Code: 68839-1 Heart Rate 1: 84 bpm Height: 5'6" [...] Encounters Encounter Performer Loca tion Codes Date ([id number]) 85327 EST. P ATIENT, LEVEL IV Diagnosis: Acute recurrent maxillary sinusitis[ICD10: J01.01] Diagnosis: Low back pain[ICD10: M54.5] Diagnosis: Unsteadiness on feet[ICD10: R26.81] Diagnosis: Essential (primary) hypertension[ICD10: I10] [facility] CPT-4: 14086 02/01/2018 ([id number]) 75818 EST. P ATIENT, LEVEL IV Diagnosis: Type 2 diabetes mellitus with hyperglycemia[ICD10: E11.65] Diagnosis: Essential (primary) hypertension[ICD10: I10] Diagnosis: Other fatigue[ICD10: R53.83] [facility] CPT-4: 56757 12/13/2017 ([id number]) 48623 EST. 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 P ATIENT, LEVEL IV Diagnosis: Pouchitis[ICD10: K91.850] Diagnosis: Other fatigue[ICD10: R53.83] Diagnosis: Type 2 diabetes mellitus with hyperglycemia[ICD10: E11.65] Diagnosis: Essential (primary) hypertension[ICD10: I10] Diagnosis: Orthostatic hypotension[ICD10: I95.1] Maude Man MD, [facility] CPT-4: 03185 08/23/2017 ([id number]) Miscellaneou s no charge Diagnosis: Type 2 diabetes mellitus with hyperglycemia[ICD10: E11.65] Shae Man MD, [facility] CPT-4: 40366 06/25/2017 ([id number]) 24938 EST. P ATIENT, LEVEL IV Diagnosis: Type 2 diabetes mellitus with hyperglycemia[ICD10: E11.65] Maude Man MD, [facility] CPT-4: 13550 06/11/2017 ([id number]) 24939 EST. P ATIENT, LEVEL IV Diagnosis: Type 2 diabetes mellitus with hyperglycemia[ICD10: E11.65] Diagnosis: Essential (primary) hypertension[ICD10: I10] Diagnosis: Acute recurrent maxillary sinusitis[ICD10: J01.01] Ana Man MD, [facility] CPT-4: 59008 06/04/2017 OFFICE VISIT, NEW - LEVEL 4 Diagnosis: Left lower quadrant pain[ICD10: R10.32] Diagnosis: Other ulcerative colitis with unspecified complications[ICD10: K51.819] Diagnosis: Essential (primary) hypertension[ICD10: I10] Diagnosis: Type 2 diabetes mellitus without complications[ICD10: E11.9] Diagnosis: Major depressive disorder, recurrent, in partial remission[ICD10: F33.41] Diagnosis: Melena[ICD10: K92.1] [facility] CPT-4: 79543 04/24/2017 Plan of Care Planned Activity Notes [...] and bring readings to next appt 02/01/2018 Patient Education: Patient Medication Summary Completed 02/01/2018 Patient Education: Back Pain Completed 02/01/2018 Patient Education: Hypertension Completed 02/01/2018 [facility] [phone] [place] ([facility] [place]) Moderate 01/24/2018 Referral: Megha Garcia [...] made. 12/13/2017 [facility]: [facility] [phone] [facility] (15 min) Moderate 12/13/2017 Patient Education: Patient Medication Summary Completed 12/13/2017 Patient Education: Diabetes Completed 12/13/2017 Patient Education: Hypertension Completed 12/13/2017 Care Plan: Referral Order SNOMED-CT : [id number] Pending 12/13/2017 [facility]ment: [facility] [phone] [facility] [place] (15 min) Moderate 11/26/2017 Visit Plan: Diabetes Mellitus - [facility] ontrolled - per recent FSBS reports. [...] hospital. 09/18/2017 Visit Plan: Diabetes Mellitus - [facility] ontrolled - per recent FSBS reports. [...] followed through 09/18/2017 App[facility]: [facility] [phone] [place] [place] (15 min) Moderate 09/18/2017 Patient Education: Patient Medication Summary Completed 09/18/2017 Referral: External, Ordering Provider Patient informed. Referral info faxed. Completed 09/17/2017 Appointment: Maude Man WPtel: [address] [place], [place] [phone] [place] (15 min) Moderate 09/06/2017 Visit Plan: [...] Dr. Gracia. 08/23/2017 Appointment: Maude Man WPtel: [address] [place], [place] [phone] [place] (15 min) Moderate 08/23/2017 Patient Education: Patient Medication Summary Completed 08/23/2017 Care Plan: Comp Metabolic Cancelled 08/23/2017 Care Plan: Cbc With Differential Cancelled 08/23/2017 Care Plan: %Hba1C IN C : 57077-8 Cancelled 08/23/2017 Care Plan: Magnesium Cancelled 08/23/2017 Care Plan: Referral Order SNOMED-CT : [id number] Pending 08/23/2017 Appointment: Maude Man WPtel: [address] [place], [place] [phone] [place] (15 min) Moderate 08/13/2017 Visit Plan: CGM removed - pt tolera jomar procedure well - no changes at this time. 06/25/2017 Patient Education: Patient Medication Summary Completed 06/25/2017 Appointment: Maude Man WPtel: [facility] [place] [place] ([place] min) Moderate 06/21/2017 Visit [...] glucose control. 06/20/2017 Appointment: Shae Guerrero WPtel: [address] [place], [place] [address] (30 min) [facility] 06/20/2017 Patient Education: Patient Medication [...] Summary Completed 06/04/2017 Appointment: Ana Burrell [facility]Ptel[phone] (30 min) Complex 05/31/2017 Appointment: Ana Burrell WPtel[phone] (30 min) Complex 05/29/2017 Appointment: Ana Burrell WPtel[phone] (30 min) Complex 05/24/2017 Visit Plan: [...] current medications. 04/24/2017 App[facility]ment: [facility] [phone] [phone] New Patient 04/24/2017 Patient Education: Patient Medication Summary Completed 04/24/2017 Appointment: [facility] [phone] [facility] [place] New Patient 04/20/2017 Referral: External, Ordering Provider [...]
--- OUTSIDE RECORDS SUMMARY | 2019-01-29 06:18 | XMS REPORT | CCD ---
Author Author Baylee Burrell Organization Maude Man MD, [facility] Address [address] [place] [address] Phone Care Team Providers Care Pants Cutter Name Role Phone PP Unavailable CCM Unavailable Summary Purpose Interface Exchange Insurance Providers Payer name Policy type / Coverage type Covered constitution party ID Effective Begin Date Effective End Date WPS Medicare Part B Blue Cross/Blue Shield [id number] Unknown Blue Cross Blue Shield [facility] [place] e Cross/Blue Shield [id number] Un known Blue Cross/Blue Shield [id number] Unknown Family history Sister Diagnosis Age At [...] 1 04/24/2017 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 04/24/[address]: 359694648 Never smoker 04/24/[address]: 462517944 Never drinks alcohol 04/24/2017 Allergies, Adverse Reactions, Alerts Substance Reaction Codes Entered Date Inactivated Date Status Levaquin RxNorm: 04619 04/24/2017 No Inactive Date Active Past Medical [...] Fill Instructions Keflex 500 mg capsule RxNorm: 767253 1 Capsule(s) PO TID 02/01/2018 02/07/2018 Inactive Sudeep Chang U-30 0 Insulin 300 unit/mL (1.5 mL) subcutaneous pen RxNorm: 3069635 45 Unit(s) SQ daily 12/26/2017 No Stop Date Active atorvastatin 40 mg t ablet RxNorm: 281745 Tablet(s) TAKE ONE-REA LF TABLET BY MOUTH EVERY EVENING 12/26/2017 No Stop Date Active Restasis 0.05 % eye drops in a dropperette RxNorm: 021374 INSTILL ONE DROP IN E ACH EYE EVERY 12 HOURS 12/24/2017 04/22/2018 Active atorvastatin 40 mg t ablet RxNorm: 252508 TAKE ONE TABLET BY MO UTH EVERY EVENING 12/17/2017 12/25/2017 In active venlafaxine ER 150 m g tablet,extended release 24 hr RxNorm: 395924 TAKE ONE CAPSULE BY MOUTH DAILY 10/11/2017 07/07/2018 Active metoprolol succinate ER 50 mg tablet,extended release 24 hr RxNorm: 239927 TAKE ONE TABLET BY MOUTH DAILY 10/11/2017 07/07/2018 Active atorvastatin 40 mg t ablet RxNorm: 281729 TAKE ONE TABLET BY [facility] EVERY EVENING 10/11/2017 12/16/2017 In active metoprolol succinate ER 25 mg tablet,extended release 24 hr RxNorm: 398894 1/2 Tablet(s) PO daily 09/18/2017 03/16/2018 Active metronidazole 500 mg tablet RxNorm: 871432 1 Tablet(s) PO TID 08/23/2017 09/01/2017 Inactive Diflucan 150 mg tablet RxNorm: 511898 1 Tablet(s) PO daily 08/23/2017 09/01/2017 Inactive atorvastatin 40 mg t ablet RxNorm: 809324 1 Tablet(s) PO QPM 08/02/2017 10/10/2017 Inactive Toujeo SoloStar U-30 0 Insulin 300 unit/mL (1.5 mL) subcutaneous pen RxNorm: 8819470 40 Unit(s) SQ daily 07/30/2017 12/25/2017 Inactive Novofine 32 32 gauge x 1/4" needle RxNorm: USE TO TEST BLOOD SUGAR ONC E DAILY 07/26/2017 04/16/2019 Ac tive Toujeo SoloStar U-30 0 Insulin 300 unit/mL (1.5 mL) subcutaneous pen RxNorm: 7271164 INJECT 24 UNITS UNDER THE SKIN EVERY EVENING 07/26/2017 07/29/2017 Inactive Apidra U-100 Insulin 100 unit/mL subcutaneous solution RxNorm: 932269 5 Unit(s) SQ AC 06/06/2017 06/06/2017 Inactive start with 5 units with breakfast -call with blood sugars in 1 week Keflex 500 mg capsule RxNorm: 112082 1 Capsule(s) PO TID 06/04/2017 06/10/2017 Inactive Apidra U-100 Insulin 100 unit/mL subcutaneous solution RxNorm: 518866 5 Unit(s) SQ AC 06/04/2017 06/05/2017 Inactive start with 5 units with breakfast -call with blood sugars in 1 week Restasis 0.05 % eye drops in a dropperette RxNorm: 388849 1 gtts ophthalmic (ey e) Q12H 06/04/2017 07/03/2017 Inactive Toujeo SoloStar U-30 0 Insulin 300 unit/mL (1.5 mL) subcutaneous pen RxNorm: 5195117 28 Unit(s) SQ QPM x1 week, then 32 units daily. 04/26/2017 08/28/2017 Inactive Restasis MultiDose 0 .05 % eye drops RxNorm: 486145 1 Drop(s) ophthalmic (eye) daily - BID 04/24/2017 No Stop Date Active cyanocobalamin (vit B-12) 1,000 mcg/mL injection solution RxNorm: 687332 1 Milliliter(s) Inj QW -BIW 04/24/2017 07/22/2017 Inactive disp with syringes please Toujeo SoloStar U-30 0 Insulin 300 unit/mL (1.5 mL) subcutaneous pen RxNorm: 4507775 24 Unit(s) SQ QPM 04/24/2017 04/23/2017 Inactive Novofine 32 32 gauge x 1/4" needle RxNorm: 1 test Miscellaneous daily 04/24/2017 07/22/2017 In active E11.65 use with toujeo venlafaxine ER 150 m g tablet,extended release 24 hr RxNorm: 475896 1 Tablet(s) PO daily 04/24/2017 10/10/2017 Inactive cyanocobalamin (vit B-12) 1,000 mcg/mL injection solution RxNorm: 109088 1 Milliliter(s) Inj QW -BIW 04/24/2017 04/23/2017 Inactive metoprolol succinate ER 50 mg tablet,extended release 24 hr RxNorm: 978478 1 Tablet(s) PO daily 04/24/2017 09/17/2017 Inactive Toujeo SoloStar U-30 0 Insulin 300 unit/mL (1.5 mL) subcutaneous pen RxNorm: 9472796 24 Unit(s) SQ QPM 04/24/2017 04/25/2017 Inactive Centrum Silver tablet RxNorm: 1 Tablet(s) PO daily No Start Date Active Novolog U-100 Insuli n aspart 100 unit/mL subcutaneous solution RxNorm: 360522 5 Unit(s) SQ AC No Start Date Active magnesium 250 mg tablet RxNorm: 1 Tablet(s) PO as needed No Start Date Active Probiotic Blend oral RxNorm: 261103 oral No Start Date Active Calcium 600 + D(3) 6 00 mg (1,500 mg)-400 unit tablet RxNorm: 466283 1 Tablet(s) PO as needed No Start Date Active atorvastatin 40 mg t ablet RxNorm: 745738 1 Tablet(s) PO QPM No Start Date 08/01/2017 Inactive Novofine 32 32 gauge x 1/4" needle RxNorm: 1 Miscellaneous daily No Start Date 04/23/2017 Inactive cyanocobalamin (vit B-12) 1,000 mcg/mL injection solution RxNorm: 724946 1 Milliliter(s) Inj No Start Date 04/23/2017 Inactive metoprolol succinate ER 50 mg tablet,extended release 24 hr RxNorm: 505821 1 Tablet(s) PO daily No Start Date 04/23/2017 Inactive lisinopril 5 mg tablet RxNorm: 357206 1 Tablet(s) PO QPM No Start Date 04/23/2017 Inactive Restasis MultiDose 0 .05 % eye drops RxNorm: 508681 Drop(s) ophthalmic (e ye) No Start Date 04/23/2017 Inactive venlafaxine ER 150 m g capsule,extended release 24 hr RxNorm: 170208 1 Capsule(s) PO daily No Start Date [...] Ord30 C/HDL 2.7 Ratio 12/13/2017 Comp Metabolic Vsu176 NA 140 mEq/L 12/13/2017 Comp Metabolic Btj723 K 4.4 mEq/L 12/13/2017 Comp Metabolic Kko076 CL 107 mEq/L 12/13/2017 Comp Metabolic Kxr921 CO2 23.0 mEq/L 12/13/2017 Comp Metabolic Fyi430 AN ION GAP 14 12/13/2017 Comp Metabolic Gyb372 GL UCOSE 179 mg/dL 12/13/2017 Comp Metabolic Bgz121 Cr eat 1.7 mg/dL 12/13/2017 Comp Metabolic Sxk411 eG FR 31 ml/min/1.73m2 12/13 Comp Metabolic Xlj788 BUN 40 mg/dL 12/13/2017 Comp Metabolic Fzb469 B/ C Ratio 23.3 Ratio 12/13/2017 Comp Metabolic Apz257 CA LCIUM 10.3 mg/dL 12/13/2017 Comp Metabolic Znq605 AL K PHOS 54 U/L 12/13/2017 Comp Metabolic Xrh191 T(SGOT) 41 U/L 12/13/2017 Comp Metabolic Sba941 AL T(SGPT) 44 U/L 12/13/2017 Comp Metabolic Ots916 BI LI T 0.4 mg/dL 12/13/2017 Comp Metabolic Arf756 AL BUMIN 4.9 g/dL 12/13/2017 Comp Metabolic Tos843 TP RO 7.7 g/dL 12/13/2017 Comp Metabolic Rkt829 GL OB 2.8 g/dL 12/13/2017 Comp Metabolic Mkj954 A/ G Ratio 1.8 Ratio 12/13/2017 Comp Metabolic Vaw747 Os mo 294 mOsmo 12/13/2017 Tsh Ord6 TSH (3rd IS) 2.56 uIU/mL 12/13/2017 %Hba1C Eiy908 % HbA1c 45637-7 9.6 % 12/13/2017 %Hba1C Nmj893 Gluc Ave 229 mg/dL 12/13/2017 Cbc With [...] 32.0 pg 12/13/2017 Cbc With Differential Ord2 Estill% 8.0 % 12/13/2017 Cbc With Differential Ord2 [...] 1.44 K/ul 12/13/2017 Cbc With Differential Ord2 Estill ABS# 0.5 K/ul 12/13/2017 Cbc With Differential Ord2 Eos ABS# 0.1 K/ul 12/13/2017 Cbc With Differential Ord2 Baso ABS# 0.0 K/ul 12/13/2017 %Hba1C Dke980 % HbA1c 24072-1 13.1 % 04/24/2017 %Hba1C Lcp276 Gluc Ave 329 mg/dL 04/24/2017 Cbc With [...] 32.0 pg 04/24/2017 Cbc With Differential Ord2 Estill% 11.0 % 04/24/2017 Cbc With Differential Ord2 [...] 2.39 K/ul 04/24/2017 Cbc With Differential Ord2 Estill ABS# 0.8 K/ul 04/24/2017 Cbc With Differential Ord2 Eos ABS# 0.1 K/ul 04/24/2017 Cbc With Differential Ord2 Baso ABS# 0.0 K/ul 04/24/2017 Comp Metabolic Nwn004 NA 142 mEq/L 04/24/2017 Comp Metabolic Epf996 K 3.8 mEq/L 04/24/2017 Comp Metabolic Prq768 CL 105 mEq/L 04/24/2017 Comp Metabolic Uxo742 CO2 27.0 mEq/L 04/24/2017 Comp Metabolic Kvn329 AN ION GAP 14 04/24/2017 Comp Metabolic Vee443 GL UCOSE 203 mg/dL 04/24/2017 Comp Metabolic Axg876 Cr eat 1.9 mg/dL 04/24/2017 Comp Metabolic Aig045 eG FR 28 ml/min/1.73m2 04/24 Comp Metabolic Zzq998 BUN 26 mg/dL 04/24/2017 Comp Metabolic Xnj810 B/ C Ratio 13.6 Ratio 04/24/2017 Comp Metabolic Cdo782 CA LCIUM 9.9 mg/dL 04/24/2017 Comp Metabolic Hfl230 AL K PHOS 79 U/L 04/24/2017 Comp Metabolic Qzr247 T(SGOT) 25 U/L 04/24/2017 Comp Metabolic Caw426 AL T(SGPT) 36 U/L 04/24/2017 Comp Metabolic Egt575 BI LI T 0.3 mg/dL 04/24/2017 Comp Metabolic Trp848 AL BUMIN 4.5 g/dL 04/24/2017 Comp Metabolic Vtf185 TP RO 6.9 g/dL 04/24/2017 Comp Metabolic Bxe164 GL OB 2.5 g/dL 04/24/2017 Comp Metabolic Cjn358 A/ G Ratio 1.8 Ratio 04/24/2017 Comp Metabolic Zja150 Os mo 294 mOsmo 04/24/2017 Review of [...] GLUC MONITOR CONT PH YS I&R CPT-4: 49171 09/18/2017 GLUCOSE MONITORING CONT CPT-4: 23478 06/20/2017 Vital Signs Date Vital 02/01/2018 Blood Pressure 1: 110/52 Code: 8480-6 BMI: 19.9 Code: 57702-5 Height: 5'6" Weight: 125 lbs 12/13/2017 Blood Pressure 1: 140/80 Code: 8480-6 BMI: 19.9 Code: 86302-2 Heart Rate 1: 72 bpm Height: 5'6" SpO2: 95% Weight: 125 lbs 09/18/2017 Blood Pressure 1: 126/82 Code: 8480-6 BMI: 20.0 Code: 73757-2 Heart Rate 1: 103 bpm Height: 5'6" SpO2: 98% Weight: 126 lbs 08/23/2017 Blood Pressure 1: 118/62 Code: 8480-6 Heart Rate 1: 110 bpm Height: 5'6" SpO2: 95% Temperature: 37.1 (C ) / 98.7 (F) 06/20/2017 Heigh t: Weight: 06/11/2017 Blood Pressure 1: 142/76 Code: 8480-6 BMI: 21.3 Code: 61554-5 Heart Rate 1: 102 bpm Height: 5'6" SpO2: 97% Weight: 134 lbs 06/04/2017 Blood Pressure 1: 160/84 Code: 8480-6 BMI: 20.8 Code: 49008-9 Heart Rate 1: 87 bpm Height: 5'6" SpO2: 97% Weight: 131 lbs 04/24/2017 Blood Pressure 1: 132/80 Code: 8480-6 BMI: 20.8 Code: 90628-4 Heart Rate 1: 84 bpm Height: 5'6" [...] Encounters Encounter Performer Loca tion Codes Date ([id number]) [id number] EST. P ATIENT, LEVEL IV Diagnosis: Acute recurrent maxillary sinusitis[ICD10: J01.01] Diagnosis: Low back pain[ICD10: M54.5] Diagnosis: Unsteadiness on feet[ICD10: R26.81] Diagnosis: Essential (primary) hypertension[ICD10: I10] [facility] CPT-4: 78045 02/01/2018 ([id number]) 83169 EST. P ATIENT, LEVEL IV Diagnosis: Type 2 diabetes mellitus with hyperglycemia[ICD10: E11.65] Diagnosis: Essential (primary) hypertension[ICD10: I10] Diagnosis: Other fatigue[ICD10: R53.83] [facility] CPT-4: 88823 12/13/2017 ([id number]) 98008 EST. 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 P ATIENT, LEVEL IV Diagnosis: Pouchitis[ICD10: K91.850] Diagnosis: Other fatigue[ICD10: R53.83] Diagnosis: Type 2 diabetes mellitus with hyperglycemia[ICD10: E11.65] Diagnosis: Essential (primary) hypertension[ICD10: I10] Diagnosis: Orthostatic hypotension[ICD10: I95.1] Maude Man MD, [facility] CPT-4: 97495 08/23/2017 ([id number]) Miscellaneou s no charge Diagnosis: Type 2 diabetes mellitus with hyperglycemia[ICD10: E11.65] Shae Man MD, [facility] CPT-4: 28069 06/25/2017 ([id number]) 85209 EST. P ATIENT, LEVEL IV Diagnosis: Type 2 diabetes mellitus with hyperglycemia[ICD10: E11.65] Maude Man MD, [facility] CPT-4: 78567 06/11/2017 ([id number]) 85313 EST. P ATIENT, LEVEL IV Diagnosis: Type 2 diabetes mellitus with hyperglycemia[ICD10: E11.65] Diagnosis: Essential (primary) hypertension[ICD10: I10] Diagnosis: Acute recurrent maxillary sinusitis[ICD10: J01.01] Ana Man MD, [facility] CPT-4: 05590 06/04/2017 OFFICE VISIT, NEW - LEVEL 4 Diagnosis: Left lower quadrant pain[ICD10: R10.32] Diagnosis: Other ulcerative colitis with unspecified complications[ICD10: K51.819] Diagnosis: Essential (primary) hypertension[ICD10: I10] Diagnosis: Type 2 diabetes mellitus without complications[ICD10: E11.9] Diagnosis: Major depressive disorder, recurrent, in partial remission[ICD10: F33.41] Diagnosis: Melena[ICD10: K92.1] [facility] CPT-4: 95457 04/24/2017 Plan of Care Planned Activity Notes [...] readings to next appt 02/01/2018 Appointment: Ana Brurell WPtel: [phone] [phone] (30 min) Complex 02/01/2018 Patient Education: Patient Medication Summary Completed 02/01/2018 Patient Education: Back Pain Completed 02/01/2018 Patient Education: Hypertension Completed 02/01/2018 Appointment: Maude Man WPtel: [phone] [facility] (15 min) Moderate 01/24/2018 Referral: Megha [...] made. 12/13/2017 Appointment: Maude Man WPtel: [phone] [facility] [place] (15 min) Moderate 12/13/2017 Patient Education: Patient Medication Summary Completed 12/13/2017 Patient Education: Diabetes Completed 12/13/2017 Patient Education: Hypertension Completed 12/13/2017 Care Plan: Referral Order SNOMED-CT : [id number] Pending 12/13/2017 [phone] [facility] [place] ([facility] min) Moderate 11/26/2017 Visit Plan: Diabetes Mellitus - [facility] ont[facility] - per recent FSBS reports. I [...] hospital. 09/18/2017 Visit Plan: Diabetes Mellitus - [facility] ontrolled - per recent FSBS reports. I [...] followed through 09/18/2017 Appointment: Maude Man WPtel: [address] [place], [place] [phone] (15 min) Moderate 09/18/2017 Patient Education: Patient Medication Summary Completed 09/18/2017 Referral: External, Ordering Provider Patient informed. Referral info faxed. Completed 09/17/2017 Appointment: Maude Man WPtel: [address] [place], [place] [phone] (15 min) Moderate 09/06/2017 Visit Plan: [...] Dr. Gracia. 08/23/2017 Appointment: Maude Man WPtel: [address] [place], [place] [phone] (15 min) Moderate 08/23/2017 Patient Education: Patient Medication Summary Completed 08/23/2017 Care Plan: Comp Metabolic Cancelled 08/23/2017 Care Plan: Cbc With Differential Cancelled 08/23/2017 Care Plan: %Hba1C LOIN C : 42413-0 Cancelled 08/23/2017 Care Plan: Magnesium Cancelled 08/23/2017 Care Plan: Referral Order SNOMED-CT : 315420800 Pending 08/23/2017 Appointment: Maude Man WPtel: [address] [place], [place] [phone] (15 min) Moderate 08/13/2017 Visit Plan: CGM removed - pt tolera jomar procedure well - no changes at this time. 06/25/2017 Patient Education: Patient Medication Summary Completed 06/25/2017 [phone] [facility] ([facility]) Moderate 06/21/2017 Visit [...] glucose control. 06/20/2017 [facility] [phone] [facility] ([facility]) Complex 06/20/2017 [...] Completed 06/04/2017 [facility]ment[facility] [phone] [phone] (30 min) Complex 05/31/2017 App[facility]ment: Ana Burrell [facility]el[phone] (30 min) Complex 05/29/2017 Appointment: Ana Burrell [facility]Ptel[facility] (30 min) Complex 05/24/2017 Visit Plan: [...] medications. 04/24/2017 [facility]ment: [facility] [phone] [facility] New Patient 04/24/2017 Patient Education: Patient Medication Summary Completed 04/24/2017 App[facility]ment: [facility] [phone] [facility] New Patient 04/20/2017 Referral: External, Ordering [...]
--- OUTSIDE RECORDS SUMMARY | 2019-01-29 06:19 | XMS REPORT | CCD ---
Author Author Baylee Burrell Organization Maude Man MD, [facility] Address [address] [place] [address] Phone Care Team Providers Care Merchant Banker Name Role Phone PP Unavailable CCM Unavailable Summary Purpose Interface Exchange Insurance Providers Payer name Policy type / Coverage type Covered democrat ID Effective Begin Date Effective End Date WPS Medicare Part B Blue Cross/Blue Shield [id number] Unknown Blue Cross Blue Shield 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79 ICD-10: R53.83 Active 08/23/2017 Unknown Type 2 diabetes karina itus with hyperglycemia ICD-9: 250.02 ICD-10: E11.65 Active 06/04/2017 Unknown Orthostatic hypotension ICD-9: 458.0 ICD-10: I95.1 Active 08/23/2017 Unknown Pouchitis ICD-9: 569.71 ICD-10: K91.850 Active 08/23/2017 Unknown Acute recurrent maxi llary sinusitis ICD-9: 461.0 ICD-10: J01.01 Active 06/04/2017 Unknown blindness Unknown Active 04/24/2017 Unknow n [...] Condition Codes Effectiv e Dates Condition Status Essential (primary) hypertension ICD-9: 401.9 ICD-10: I10 04/24/2017 Active Major depressive dis order, recurrent, in partial remission ICD-9: 296.35 ICD-10: F33.41 04/24/2017 Active Other fatigue ICD-9: 780.79 ICD-10: R53.83 08/23/2017 Active Type 2 diabetes karina itus with hyperglycemia ICD-9: 250.02 ICD-10: E11.65 06/04/2017 Active Orthostatic hypotension ICD-9: 458.0 ICD-10: I95.1 08/23/2017 Active Pouchitis ICD-9: 569.71 ICD-10: K91.850 08/23/2017 Active Acute recurrent maxi llary sinusitis ICD-9: 461.0 ICD-10: J01.01 06/04/2017 Active blindness Unknown 04/24/2017 Active Cataract Unknown [...] Date Stop Date Sta tus Fill Instructions Restasis 0.05 % eye drops in a dropperette RxNorm: 991110 INSTILL ONE DROP IN E ACH EYE EVERY 12 HOURS 12/24/2017 04/22/2018 Active atorvastatin 40 mg t ablet RxNorm: 353662 TAKE ONE TABLET BY MO [facility] EVERY EVENING 12/17/2017 06/14/2018 Ac tive venlafaxine ER 150 m g tablet,extended release 24 hr RxNorm: 717539 TAKE ONE CAPSULE BY MOUTH DAILY 10/11/2017 07/07/2018 Active metoprolol succinate ER 50 mg tablet,extended release 24 hr RxNorm: 575281 TAKE ONE TABLET BY MOUTH DAILY 10/11/2017 07/07/2018 Active atorvastatin 40 mg t ablet RxNorm: 097829 TAKE ONE TABLET BY MO [place] EVERY EVENING 10/11/2017 12/16/2017 In active metoprolol succinate ER 25 mg tablet,extended release 24 hr RxNorm: 695229 1/2 Tablet(s) PO daily 09/18/2017 03/16/2018 Active metronidazole 500 mg tablet RxNorm: 410394 1 Tablet(s) PO TID 08/23/2017 09/01/2017 Inactive Diflucan 150 mg tablet RxNorm: 422872 1 Tablet(s) PO daily 08/23/2017 09/01/2017 Inactive atorvastatin 40 mg t ablet RxNorm: 334958 1 Tablet(s) PO QPM 08/02/2017 10/10/2017 Inactive Toujeo SoloStar U-30 0 Insulin 300 unit/mL (1.5 mL) subcutaneous pen RxNorm: 7206172 40 Unit(s) SQ daily 07/30/2017 01/25/2018 Active Novofine 32 32 gauge x 1/4" needle RxNorm: USE TO TEST BLOOD SUGAR ONC E DAILY 07/26/2017 04/16/2019 Ac tive Toujeo SoloStar U-30 0 Insulin 300 unit/mL (1.5 mL) subcutaneous pen RxNorm: 0724496 INJECT 24 UNITS UNDER THE SKIN EVERY EVENING 07/26/2017 07/29/2017 Inactive Apidra U-100 Insulin 100 unit/mL subcutaneous solution RxNorm: 383175 5 Unit(s) SQ AC 06/06/2017 06/06/2017 Inactive start with 5 units with breakfast -call with blood sugars in 1 week Keflex 500 mg capsule RxNorm: 880023 1 Capsule(s) PO TID 06/04/2017 06/10/2017 Inactive Apidra U-100 Insulin 100 unit/mL subcutaneous solution RxNorm: 440881 5 Unit(s) SQ AC 06/04/2017 06/05/2017 Inactive start with 5 units with breakfast -call with blood sugars in 1 week Restasis 0.05 % eye drops in a dropperette RxNorm: 572106 1 gtts ophthalmic (ey e) Q12H 06/04/2017 07/03/2017 Inactive Toujeo SoloStar U-30 0 Insulin 300 unit/mL (1.5 mL) subcutaneous pen RxNorm: 6602323 28 Unit(s) SQ QPM x1 week, then 32 units daily. 04/26/2017 08/28/2017 Inactive Restasis MultiDose 0 .05 % eye drops RxNorm: 330420 1 Drop(s) ophthalmic (eye) daily - BID 04/24/2017 No Stop Date Active cyanocobalamin (vit B-12) 1,000 mcg/mL injection solution RxNorm: 986892 1 Milliliter(s) Inj QW -BIW 04/24/2017 07/22/2017 Inactive disp with syringes please Toujeo SoloStar U-30 0 Insulin 300 unit/mL (1.5 mL) subcutaneous pen RxNorm: 7608926 24 Unit(s) SQ QPM 04/24/2017 04/23/2017 Inactive Novofine 32 32 gauge x 1/4" needle RxNorm: 1 test Miscellaneous daily 04/24/2017 07/22/2017 In active E11.65 use with westley venlafaxine ER 150 m g tablet,extended release 24 hr RxNorm: 583866 1 Tablet(s) PO daily 04/24/2017 10/10/2017 Inactive cyanocobalamin (vit B-12) 1,000 mcg/mL injection solution RxNorm: 753018 1 Milliliter(s) Inj QW -BIW 04/24/2017 04/23/2017 Inactive metoprolol succinate ER 50 mg tablet,extended release 24 hr RxNorm: 340845 1 Tablet(s) PO daily 04/24/2017 09/17/2017 Inactive Toujeo SoloStar U-30 0 Insulin 300 unit/mL (1.5 mL) subcutaneous pen RxNorm: 2501674 24 Unit(s) SQ QPM 04/24/2017 04/25/2017 Inactive Centrum Silver tablet RxNorm: 1 Tablet(s) PO daily No Start Date Active Novolog U-100 Insuli n aspart 100 unit/mL subcutaneous solution RxNorm: 238887 5 Unit(s) SQ AC No Start Date Active magnesium 250 mg tablet RxNorm: 1 Tablet(s) PO as needed No Start Date Active Probiotic Blend oral RxNorm: 719668 oral No Start Date Active Calcium 600 + D(3) 6 00 mg (1,500 mg)-400 unit tablet RxNorm: 894279 1 Tablet(s) PO as needed No Start Date Active atorvastatin 40 mg t ablet RxNorm: 266045 1 Tablet(s) PO QPM No Start Date 08/01/2017 Inactive Novofine 32 32 gauge x 1/4" needle RxNorm: 1 Miscellaneous daily No Start Date 04/23/2017 Inactive cyanocobalamin (vit B-12) 1,000 mcg/mL injection solution RxNorm: 226892 1 Milliliter(s) Inj No Start Date 04/23/2017 Inactive metoprolol succinate ER 50 mg tablet,extended release 24 hr RxNorm: 998432 1 Tablet(s) PO daily No Start Date 04/23/2017 Inactive lisinopril 5 mg tablet RxNorm: 912501 1 Tablet(s) PO QPM No Start Date 04/23/2017 Inactive Restasis MultiDose 0 .05 % eye drops RxNorm: 999304 Drop(s) ophthalmic (e ye) No Start Date 04/23/2017 Inactive venlafaxine ER 150 m g capsule,extended release 24 hr RxNorm: 609974 1 Capsule(s) PO daily No Start Date 04/23/2017 Inactive Toujeo SoloStar U-30 0 Insulin subcutaneous RxNorm: subcutaneous No Start Date 04/23/2017 Inactive Medication Administered No Medication Administered data Immunizations No Immunization data Assessments Condition Codes Effectiv e Dates Type 2 diabetes mellitus with hyperglycemia ICD-10: E11.65 ICD-9: 250.02 12/13/2017 Essential (primary) hypertension ICD -10: I10 ICD-9: 401.9 12/13/2017 Other fatigue ICD-10: R53.83 ICD-9: 780.79 12/13/2017 Major depressive disorder, recurrent, in partial remis german ICD-10: F33.41 ICD-9: 296.35 09/18/2017 Orthostatic hypotension ICD-10: I95. 1 ICD-9: 458.0 08/23/2017 Pouchitis ICD-10: K91.850 ICD-9: 569.71 08/23/2017 Acute recurrent maxillary sinusitis ICD-10: J01.01 ICD-9: 461.0 06/04/2017 Left lower quadrant pain ICD-10: R10 .32 ICD-9: 789.04 04/24/2017 Other ulcerative colitis with unspecified complication s ICD- 10: K51.819 ICD-9: 556.8 04/24/2017 Type 2 diabetes mellitus without complications ICD-10: E11.9 ICD-9: 250.00 04/24/2017 Melena ICD-10: K92.1 ICD-9: 578.1 04/24/2017 Reason For Visit Reason For Visit Effective Dates Notes headache 12/13/2017 diabetes mellitus 09/18/2017 gait abnormality [...] Ord30 C/HDL 2.7 Ratio 12/13/2017 Comp Metabolic Pfq056 NA 140 mEq/L 12/13/2017 Comp Metabolic Vxu852 K 4.4 mEq/L 12/13/2017 Comp Metabolic Kpv504 CL 107 mEq/L 12/13/2017 Comp Metabolic Mfm791 CO2 23.0 mEq/L 12/13/2017 Comp Metabolic Btx241 AN ION GAP 14 12/13/2017 Comp Metabolic Aoe531 GL UCOSE 179 mg/dL 12/13/2017 Comp Metabolic Aiz335 Cr eat 1.7 mg/dL 12/13/2017 Comp Metabolic Gjs574 eG FR 31 ml/min/1.73m2 12/13 Comp Metabolic Ymw340 BUN 40 mg/dL 12/13/2017 Comp Metabolic Lpo696 B/ C Ratio 23.3 Ratio 12/13/2017 Comp Metabolic Reu847 CA LCIUM 10.3 mg/dL 12/13/2017 Comp Metabolic Rmg141 AL K PHOS 54 U/L 12/13/2017 Comp Metabolic Bro314 T(SGOT) 41 U/L 12/13/2017 Comp Metabolic Zud827 AL T(SGPT) 44 U/L 12/13/2017 Comp Metabolic Ypk520 BI LI T 0.4 mg/dL 12/13/2017 Comp Metabolic Uvq948 AL BUMIN 4.9 g/dL 12/13/2017 Comp Metabolic Uwv244 TP RO 7.7 g/dL 12/13/2017 Comp Metabolic Vxt515 GL OB 2.8 g/dL 12/13/2017 Comp Metabolic Bis023 A/ G Ratio 1.8 Ratio 12/13/2017 Comp Metabolic Zrj268 Os mo 294 mOsmo 12/13/2017 Tsh Ord6 TSH (3rd IS) 2.56 uIU/mL 12/13/2017 %Hba1C Pac534 % HbA1c 03799-7 9.6 % 12/13/2017 %Hba1C Qob093 Gluc Ave 229 mg/dL 12/13/2017 Cbc With [...] 98.8 fl 12/13/2017 Cbc With Differential Ord2 [place]% 8.0 % 12/13/2017 Cbc With Differential Ord2 MCH 32.0 pg 12/13/2017 Cbc With Differential Ord2 Eos% 1.0 % 12/13/2017 Cbc With Differential Ord2 MCHC 32.4 pg 12/13/2017 Cbc With Differential Ord2 PLT 184 K/ul 12/13/2017 Cbc With Differential Ord2 Baso% 0.3 % 12/13/2017 Cbc With Differential Ord2 Neut ABS# 3.85 K/ul 12/13/2017 Cbc With Differential Ord2 RDW 12.6 % 12/13/2017 Cbc With Differential Ord2 Lymph ABS# 1.44 K/ul 12/13/2017 Cbc With Differential Ord2 [place] ABS# 0.5 K/ul 12/13/2017 Cbc With Differential Ord2 Eos ABS# 0.1 K/ul 12/13/2017 Cbc With Differential Ord2 Baso ABS# 0.0 K/ul 12/13/2017 %Hba1C Mjr679 % HbA1c 50121-8 13.1 % 04/24/2017 %Hba1C Oke772 Gluc Ave 329 mg/dL 04/24/2017 Cbc With Differential Ord2 WBC 7.65 K/ul 04/24/2017 Cbc With Differential Ord2 RBC 4.13 M/ul 04/24/2017 Cbc With Differential Ord2 HGB 13.2 g/dl 04/24/2017 Cbc With Differential Ord2 Neut% 56.1 % 04/24/2017 Cbc With Differential Ord2 HCT 39.8 % 04/24/2017 Cbc With Differential Ord2 MCV 96.4 fl 04/24/2017 Cbc With Differential Ord2 Lymph% 31.2 % 04/24/2017 Cbc With Differential Ord2 MCH 32.0 pg 04/24/2017 Cbc With Differential Ord2 [place]% 11.0 % 04/24/2017 Cbc With Differential Ord2 [...] 2.39 K/ul 04/24/2017 Cbc With Differential Ord2 [place] ABS# 0.8 K/ul 04/24/2017 Cbc With Differential Ord2 Eos ABS# 0.1 K/ul 04/24/2017 Cbc With Differential Ord2 Baso ABS# 0.0 K/ul 04/24/2017 Comp Metabolic Fus888 NA 142 mEq/L 04/24/2017 Comp Metabolic Gok423 K 3.8 mEq/L 04/24/2017 Comp Metabolic Uny026 CL 105 mEq/L 04/24/2017 Comp Metabolic Ani723 CO2 27.0 mEq/L 04/24/2017 Comp Metabolic Geo506 AN ION GAP 14 04/24/2017 Comp Metabolic Ysq114 GL UCOSE 203 mg/dL 04/24/2017 Comp Metabolic Drw900 Cr eat 1.9 mg/dL 04/24/2017 Comp Metabolic Lhn780 eG FR 28 ml/min/1.73m2 04/24 Comp Metabolic Apm211 BUN 26 mg/dL 04/24/2017 Comp Metabolic Tbh264 B/ C Ratio 13.6 Ratio 04/24/2017 Comp Metabolic Nty556 CA LCIUM 9.9 mg/dL 04/24/2017 Comp Metabolic Xxm746 AL K PHOS 79 U/L 04/24/2017 Comp Metabolic Iug273 T(SGOT) 25 U/L 04/24/2017 Comp Metabolic Jha086 AL T(SGPT) 36 U/L 04/24/2017 Comp Metabolic Shw912 BI LI T 0.3 mg/dL 04/24/2017 Comp Metabolic Plf655 AL BUMIN 4.5 g/dL 04/24/2017 Comp Metabolic Enk504 TP RO 6.9 g/dL 04/24/2017 Comp Metabolic Gbd131 GL OB 2.5 g/dL 04/24/2017 Comp Metabolic Hxi345 A/ G Ratio 1.8 Ratio 04/24/2017 Comp Metabolic Ljs852 Os mo 294 mOsmo 04/24/2017 Review of Systems System Result Effective Dates Constitutional anorexia 12/13/2017 Constitutional fatigue 1 02/12/2017 [...] quickly 08/23/2017 None Full Exam - General 1995 Constitutional general appearance Overall: well developed 06/20/2017 [...] GLUC MONITOR CONT PH YS I&R CPT-4: 49432 09/18/2017 GLUCOSE MONITORING CONT CPT-4: 21822 06/20/2017 Vital Signs Date Vital 12/13/2017 Blood Pressure 1: 140/80 Code: 8480-6 BMI: 19.9 Code: 95526-5 Heart Rate 1: 72 bpm Height: 5'6" SpO2: 95% Weight: 125 lbs 09/18/2017 Blood Pressure 1: 126/82 Code: 8480-6 BMI: 20.0 Code: 79754-6 Heart Rate 1: 103 bpm Height: 5'6" SpO2: 98% Weight: 126 lbs 08/23/2017 Blood Pressure 1: 118/62 Code: 8480-6 Heart Rate 1: 110 bpm Height: 5'6" SpO2: 95% Temperature: 37.1 (C ) / 98.7 (F) 06/20/2017 Heigh t: Weight: 06/11/2017 Blood Pressure 1: 142/76 Code: 8480-6 BMI: 21.3 Code: 21624-4 Heart Rate 1: 102 bpm Height: 5'6" SpO2: 97% Weight: 134 lbs 06/04/2017 Blood Pressure 1: 160/84 Code: 8480-6 BMI: 20.8 Code: 83738-1 Heart Rate 1: 87 bpm Height: 5'6" SpO2: 97% Weight: 131 lbs 04/24/2017 Blood Pressure 1: 132/80 Code: 8480-6 BMI: 20.8 Code: 81661-4 Heart Rate 1: 84 bpm Height: 5'6" SpO2: 99% Weight: 131 lbs Functional Status No Functional Status data History of Present Illness Symptom Name Status Resu lt Effective Date Notes headache Location in the right frontal area [...] Encounters Encounter Performer Loca tion Codes Date ([id number]) 99221 EST. P ATIENT, LEVEL IV Diagnosis: Type 2 diabetes mellitus with hyperglycemia[ICD10: E11.65] Diagnosis: Essential (primary) hypertension[ICD10: I10] Diagnosis: Other fatigue[ICD10: R53.83] Maude Man MD, [facility] CPT-4: 71269 12/13/2017 ([id number]) 30615 EST. P ATIENT, LEVEL IV Diagnosis: Type 2 diabetes mellitus with hyperglycemia[ICD10: E11.65] Diagnosis: Essential (primary) hypertension[ICD10: I10] Diagnosis: Major depressive disorder, recurrent, in partial remission[ICD10: F33.41] Maude Man MD, [facility] CPT-4: 56429 09/18/2017 ([id number]) 20289 EST. P ATIENT, LEVEL IV Diagnosis: Pouchitis[ICD10: K91.850] Diagnosis: Other fatigue[ICD10: R53.83] Diagnosis: Type 2 diabetes mellitus with hyperglycemia[ICD10: E11.65] Diagnosis: Essential (primary) hypertension[ICD10: I10] Diagnosis: Orthostatic hypotension[ICD10: I95.1] Maude Man MD, [facility] CPT-4: 29698 08/23/2017 ([id number]) Miscellaneou s no charge Diagnosis: Type 2 diabetes mellitus with hyperglycemia[ICD10: E11.65] Shae Man MD, [facility] CPT-4: 44764 06/25/2017 ([id number]) 97812 EST. P ATIENT, LEVEL IV Diagnosis: Type 2 diabetes mellitus with hyperglycemia[ICD10: E11.65] Maude Man MD, [facility] CPT-4: 63732 06/11/2017 ([id number]) 29277 EST. P ATIENT, LEVEL IV Diagnosis: Type 2 diabetes mellitus with hyperglycemia[ICD10: E11.65] Diagnosis: Essential (primary) hypertension[ICD10: I10] Diagnosis: Acute recurrent maxillary sinusitis[ICD10: J01.01] Ana Man MD, [facility] CPT-4: 53103 06/04/2017 OFFICE VISIT, NEW - LEVEL 4 Diagnosis: Left lower quadrant pain[ICD10: R10.32] Diagnosis: Other ulcerative colitis with unspecified complications[ICD10: K51.819] Diagnosis: Essential (primary) hypertension[ICD10: I10] Diagnosis: Type 2 diabetes mellitus without complications[ICD10: E11.9] Diagnosis: Major depressive disorder, recurrent, in partial remission[ICD10: F33.41] Diagnosis: Melena[ICD10: K92.1] Ana Man MD, [facility] CPT-4: 02152 04/24/2017 Plan of Care Planned Activity Notes C odes Status Date Referral: Megha Garcia Referral Completed 01/15/2018 Visit [...] made. 12/13/2017 [facility] [phone] [facility] [place] (15 min) Moderate 12/13/2017 Patient Education: Patient Medication Summary Completed 12/13/2017 Patient Education: Diabetes Completed 12/13/2017 Patient Education: Hypertension Completed 12/13/2017 Care Plan: Referral Order SNOMED-CT : [id number] Pending 12/13/2017 App[facility]ment: [facility] [phone] [facility] [place] (15 min) Moderate 11/26/2017 Visit Plan: [...] for labs, [facility] - discussed with [...] through 09/18/2017 [facility]ment: [facility] [phone] [id number] [place] (15 min) Moderate 09/18/2017 Patient Education: Patient Medication Summary Completed 09/18/2017 Referral: External, Ordering Provider Patient informed. Referral info faxed. Completed 09/17/2017 [facility]ment: [facility] [phone] [facility] [place] (15 min) Moderate 09/06/2017 Visit Plan: [...] Dr. Gracia. 08/23/2017 Appointment: Maude Man WPtel: [address] [place], [place] [phone] (15 min) Moderate 08/23/2017 Patient Education: Patient Medication Summary Completed 08/23/2017 Care Plan: Comp Metabolic Cancelled 08/23/2017 Care Plan: Cbc With Differential Cancelled 08/23/2017 Care Plan: %Hba1C LOIN C : 95691-2 Cancelled 08/23/2017 Care Plan: Magnesium Cancelled 08/23/2017 Care Plan: Referral Order SNOMED-CT : [id number] Pending 08/23/2017 Appointment: Maude Man WPtel: [address] [place], [place] [phone] (15 min) Moderate 08/13/2017 Visit Plan: CGM removed - pt tolera jomar procedure well - no changes at this time. 06/25/2017 Patient Education: Patient Medication Summary Completed 06/25/2017 Appointment: Maude Man WPtel: [address] [place], [place] [phone] (15 min) Moderate 06/21/2017 Visit Plan: Continuous [...] control. 06/20/2017 Appointment: Shae Guerrero WPtel: [address] [place], [place] [id number] (30 min) [facility] 06/20/2017 Patient Education: Patient Medication [...] Summary Completed 06/04/2017 Appointment: Ana Burrell WPtel: [phone] (30 min) Complex 05/31/2017 Appointment: Ana Burrell WPtel: [phone] (30 min) Complex 05/29/2017 Appointment: Ana Burrell WPtel: [phone] (30 min) Complex 05/24/2017 Visit Plan: Left [...] current medications. 04/24/2017 Appointment: Ana Burrell WPtel: [phone] [place] New Patient 04/24/2017 Patient Education: Patient Medication Summary Completed 04/24/2017 [facility] [phone] [facility] [place] New Patient 04/20/2017 Referral: External, [...] situational exposure. No change in current medications. . Diabetes Mellitus - Uncontrolled - per [...]
--- OUTSIDE RECORDS SUMMARY | 2019-01-29 06:19 | XMS REPORT | CCD ---
Author Author Baylee Burrell Organization Maude Man MD, [facility] Address [address] [place] [address] Phone Care Team Providers Care Transmission Mechanic Name Role Phone PP Unavailable CCM Unavailable Summary Purpose Interface Exchange Insurance Providers Payer name Policy type / Coverage type Covered green party ID Effective Begin Date Effective End Date WPS Medicare Part B Blue Cross/Blue Shield [id number] Unknown Blue Cross Blue Shield [facility] [place] e Cross/Blue Shield [id number] Un known Blue Cross/Blue Shield [id number] 2017 Unknown Family history Sister Diagnosis Age [...] 1 04/24/2017 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/24/[address]: 473028880 Never smoker 04/24/[address]: 017064598 Never drinks alcohol 04/24/2017 Allergies, Adverse Reactions, Alerts Substance Reaction Codes Entered Date Inactivated Date Status Levaquin RxNorm: 46470 04/24/2017 No Inactive Date Active Past Medical [...] Date Stop Date Sta tus Fill Instructions Sudeep Chang U-30 0 Insulin 300 unit/mL (1.5 mL) subcutaneous pen RxNorm: 0510038 45 Unit(s) SQ daily 12/26/2017 No Stop Date Active atorvastatin 40 mg t ablet RxNorm: 174548 Tablet(s) TAKE ONE-REA LF TABLET BY MOUTH EVERY EVENING 12/26/2017 No Stop Date Active Restasis 0.05 % eye drops in a dropperette RxNorm: 202646 INSTILL ONE DROP IN E ACH EYE EVERY 12 HOURS 12/24/2017 04/22/2018 Active atorvastatin 40 mg t ablet RxNorm: 010469 TAKE ONE TABLET BY MO [facility] EVERY EVENING 12/17/2017 12/25/2017 In active venlafaxine ER 150 m g tablet,extended release 24 hr RxNorm: 687140 TAKE ONE CAPSULE BY MOUTH DAILY 10/11/2017 07/07/2018 Active metoprolol succinate ER 50 mg tablet,extended release 24 hr RxNorm: 261143 TAKE ONE TABLET BY MOUTH DAILY 10/11/2017 07/07/2018 Active atorvastatin 40 mg t ablet RxNorm: 189973 TAKE ONE TABLET BY MO [facility] EVERY EVENING 10/11/2017 12/16/2017 In active metoprolol succinate ER 25 mg tablet,extended release 24 hr RxNorm: 944864 1/2 Tablet(s) PO daily 09/18/2017 03/16/2018 Active metronidazole 500 mg tablet RxNorm: 469255 1 Tablet(s) PO TID 08/23/2017 09/01/2017 Inactive Diflucan 150 mg tablet RxNorm: 801528 1 Tablet(s) PO daily 08/23/2017 09/01/2017 Inactive atorvastatin 40 mg t ablet RxNorm: 198424 1 Tablet(s) PO QPM 08/02/2017 10/10/2017 Inactive Toujeo SoloStar U-30 0 Insulin 300 unit/mL (1.5 mL) subcutaneous pen RxNorm: 5816375 40 Unit(s) SQ daily 07/30/2017 12/25/2017 Inactive Novofine 32 32 gauge x 1/4" needle RxNorm: USE TO TEST BLOOD SUGAR ONC E DAILY 07/26/2017 04/16/2019 Ac tive Toujeo SoloStar U-30 0 Insulin 300 unit/mL (1.5 mL) subcutaneous pen RxNorm: 3773367 INJECT 24 UNITS UNDER THE SKIN EVERY EVENING 07/26/2017 07/29/2017 Inactive Apidra U-100 Insulin 100 unit/mL subcutaneous solution RxNorm: 018814 5 Unit(s) SQ AC 06/06/2017 06/06/2017 Inactive start with 5 units with breakfast -call with blood sugars in 1 week Keflex 500 mg capsule RxNorm: 908986 1 Capsule(s) PO TID 06/04/2017 06/10/2017 Inactive Apidra U-100 Insulin 100 unit/mL subcutaneous solution RxNorm: 268682 5 Unit(s) SQ AC 06/04/2017 06/05/2017 Inactive start with 5 units with breakfast -call with blood sugars in 1 week Restasis 0.05 % eye drops in a dropperette RxNorm: 460364 1 gtts ophthalmic (ey e) Q12H 06/04/2017 07/03/2017 Inactive Toujeo SoloStar U-30 0 Insulin 300 unit/mL (1.5 mL) subcutaneous pen RxNorm: 0188574 28 Unit(s) SQ QPM x1 week, then 32 units daily. 04/26/2017 08/28/2017 Inactive Restasis MultiDose 0 .05 % eye drops RxNorm: 830062 1 Drop(s) ophthalmic (eye) daily - BID 04/24/2017 No Stop Date Active cyanocobalamin (vit B-12) 1,000 mcg/mL injection solution RxNorm: 247629 1 Milliliter(s) Inj QW -BIW 04/24/2017 07/22/2017 Inactive disp with syringes please Toudov SoloStar U-30 0 Insulin 300 unit/mL (1.5 mL) subcutaneous pen RxNorm: 0729273 24 Unit(s) SQ QPM 04/24/2017 04/23/2017 Inactive Novofine 32 32 gauge x 1/4" needle RxNorm: 1 test Miscellaneous daily 04/24/2017 07/22/2017 In active E11.65 use with sudeep venlafaxine ER 150 m g tablet,extended release 24 hr RxNorm: 508281 1 Tablet(s) PO daily 04/24/2017 10/10/2017 Inactive cyanocobalamin (vit B-12) 1,000 mcg/mL injection solution RxNorm: 455570 1 Milliliter(s) Inj QW -BIW 04/24/2017 04/23/2017 Inactive metoprolol succinate ER 50 mg tablet,extended release 24 hr RxNorm: 460388 1 Tablet(s) PO daily 04/24/2017 09/17/2017 Inactive Toujeo SoloStar U-30 0 Insulin 300 unit/mL (1.5 mL) subcutaneous pen RxNorm: 5510464 24 Unit(s) SQ QPM 04/24/2017 04/25/2017 Inactive Centrum Silver tablet RxNorm: 1 Tablet(s) PO daily No Start Date Active Novolog U-100 Insuli n aspart 100 unit/mL subcutaneous solution RxNorm: 892155 5 Unit(s) SQ AC No Start Date Active magnesium 250 mg tablet RxNorm: 1 Tablet(s) PO as needed No Start Date Active Probiotic Blend oral RxNorm: 990003 oral No Start Date Active Calcium 600 + D(3) 6 00 mg (1,500 mg)-400 unit tablet RxNorm: 463953 1 Tablet(s) PO as needed No Start Date Active atorvastatin 40 mg t ablet RxNorm: 142090 1 Tablet(s) PO QPM No Start Date 08/01/2017 Inactive Novofine 32 32 gauge x 1/4" needle RxNorm: 1 Miscellaneous daily No Start Date 04/23/2017 Inactive cyanocobalamin (vit B-12) 1,000 mcg/mL injection solution RxNorm: 520344 1 Milliliter(s) Inj No Start Date 04/23/2017 Inactive metoprolol succinate ER 50 mg tablet,extended release 24 hr RxNorm: 097263 1 Tablet(s) PO daily No Start Date 04/23/2017 Inactive lisinopril 5 mg tablet RxNorm: 783573 1 Tablet(s) PO QPM No Start Date 04/23/2017 Inactive Restasis MultiDose 0 .05 % eye drops RxNorm: 272770 Drop(s) ophthalmic (e ye) No Start Date 04/23/2017 Inactive venlafaxine ER 150 m g capsule,extended release 24 hr RxNorm: 829680 1 Capsule(s) PO daily No Start Date [...] Ord30 C/HDL 2.7 Ratio 12/13/2017 Comp Metabolic Hwo762 NA 140 mEq/L 12/13/2017 Comp Metabolic Rwn912 K 4.4 mEq/L 12/13/2017 Comp Metabolic Jyx108 CL 107 mEq/L 12/13/2017 Comp Metabolic Jab892 CO2 23.0 mEq/L 12/13/2017 Comp Metabolic Pzp638 AN ION GAP 14 12/13/2017 Comp Metabolic Yze443 GL UCOSE 179 mg/dL 12/13/2017 Comp Metabolic Jby157 Cr eat 1.7 mg/dL 12/13/2017 Comp Metabolic Kbi007 eG FR 31 ml/min/1.73m2 12/13 Comp Metabolic Bad043 BUN 40 mg/dL 12/13/2017 Comp Metabolic Xwy409 B/ C Ratio 23.3 Ratio 12/13/2017 Comp Metabolic Aqg467 CA LCIUM 10.3 mg/dL 12/13/2017 Comp Metabolic Lnk223 AL K PHOS 54 U/L 12/13/2017 Comp Metabolic Rce078 T(SGOT) 41 U/L 12/13/2017 Comp Metabolic Sfj102 AL T(SGPT) 44 U/L 12/13/2017 Comp Metabolic Rhc558 BI LI T 0.4 mg/dL 12/13/2017 Comp Metabolic Zad476 AL BUMIN 4.9 g/dL 12/13/2017 Comp Metabolic Ryn813 TP RO 7.7 g/dL 12/13/2017 Comp Metabolic Xlu644 GL OB 2.8 g/dL 12/13/2017 Comp Metabolic Qut902 A/ G Ratio 1.8 Ratio 12/13/2017 Comp Metabolic Ndi444 Os mo 294 mOsmo 12/13/2017 Tsh Ord6 TSH (3rd IS) 2.56 uIU/mL 12/13/2017 %Hba1C Bhk446 % HbA1c 57763-6 9.6 % 12/13/2017 %Hba1C Mdl002 Gluc Ave 229 mg/dL 12/13/2017 Cbc With [...] 98.8 fl 12/13/2017 Cbc With Differential Ord2 [place]% 8.0 % 12/13/2017 Cbc With Differential Ord2 [...] 1.44 K/ul 12/13/2017 Cbc With Differential Ord2 [place] ABS# 0.5 K/ul 12/13/2017 Cbc With Differential Ord2 Eos ABS# 0.1 K/ul 12/13/2017 Cbc With Differential Ord2 Baso ABS# 0.0 K/ul 12/13/2017 %Hba1C Ixm853 % HbA1c 14966-6 13.1 % 04/24/2017 %Hba1C Cdk674 Gluc Ave 329 mg/dL 04/24/2017 Cbc With [...] 32.0 pg 04/24/2017 Cbc With Differential Ord2 [place]% 11.0 % 04/24/2017 Cbc With Differential Ord2 [...] 2.39 K/ul 04/24/2017 Cbc With Differential Ord2 [place] ABS# 0.8 K/ul 04/24/2017 Cbc With Differential Ord2 Eos ABS# 0.1 K/ul 04/24/2017 Cbc With Differential Ord2 Baso ABS# 0.0 K/ul 04/24/2017 Comp Metabolic Api038 NA 142 mEq/L 04/24/2017 Comp Metabolic Exz567 K 3.8 mEq/L 04/24/2017 Comp Metabolic Bhc315 CL 105 mEq/L 04/24/2017 Comp Metabolic Qps670 CO2 27.0 mEq/L 04/24/2017 Comp Metabolic Iyv771 AN ION GAP 14 04/24/2017 Comp Metabolic Wan355 GL UCOSE 203 mg/dL 04/24/2017 Comp Metabolic Dxe253 Cr eat 1.9 mg/dL 04/24/2017 Comp Metabolic Wup051 eG FR 28 ml/min/1.73m2 04/24 Comp Metabolic Iqw592 BUN 26 mg/dL 04/24/2017 Comp Metabolic Vkn839 B/ C Ratio 13.6 Ratio 04/24/2017 Comp Metabolic Eku430 CA LCIUM 9.9 mg/dL 04/24/2017 Comp Metabolic Bcd552 AL K PHOS 79 U/L 04/24/2017 Comp Metabolic Jda766 T(SGOT) 25 U/L 04/24/2017 Comp Metabolic Vpn029 AL T(SGPT) 36 U/L 04/24/2017 Comp Metabolic Dbh110 BI LI T 0.3 mg/dL 04/24/2017 Comp Metabolic Vym049 AL BUMIN 4.5 g/dL 04/24/2017 Comp Metabolic Dfo324 TP RO 6.9 g/dL 04/24/2017 Comp Metabolic Qzn451 GL OB 2.5 g/dL 04/24/2017 Comp Metabolic Kio758 A/ G Ratio 1.8 Ratio 04/24/2017 Comp Metabolic Nld930 Os mo 294 mOsmo 04/24/2017 Review of [...] GLUC MONITOR CONT PH YS I&R CPT-4: 52086 09/18/2017 GLUCOSE MONITORING CONT CPT-4: 50411 06/20/2017 Vital Signs Date Vital 12/13/2017 Blood Pressure 1: 140/80 Code: 8480-6 BMI: 19.9 Code: 97954-5 Heart Rate 1: 72 bpm Height: 5'6" SpO2: 95% Weight: 125 lbs 09/18/2017 Blood Pressure 1: 126/82 Code: 8480-6 BMI: 20.0 Code: 97824-9 Heart Rate 1: 103 bpm Height: 5'6" SpO2: 98% Weight: 126 lbs 08/23/2017 Blood Pressure 1: 118/62 Code: 8480-6 Heart Rate 1: 110 bpm Height: 5'6" SpO2: 95% Temperature: 37.1 (C ) / 98.7 (F) 06/20/2017 Heigh t: Weight: 06/11/2017 Blood Pressure 1: 142/76 Code: 8480-6 BMI: 21.3 Code: 21726-8 Heart Rate 1: 102 bpm Height: 5'6" SpO2: 97% Weight: 134 lbs 06/04/2017 Blood Pressure 1: 160/84 Code: 8480-6 BMI: 20.8 Code: 27509-8 Heart Rate 1: 87 bpm Height: 5'6" SpO2: 97% Weight: 131 lbs 04/24/2017 Blood Pressure 1: 132/80 Code: 8480-6 BMI: 20.8 Code: 39344-8 Heart Rate 1: 84 bpm Height: 5'6" [...] Encounters Encounter Performer Loca tion Codes Date ([id number]) [id number] EST. P ATIENT, LEVEL IV Diagnosis: Type 2 diabetes mellitus with hyperglycemia[ICD10: E11.65] Diagnosis: Essential (primary) hypertension[ICD10: I10] Diagnosis: Other fatigue[ICD10: R53.83] Maude Man MD, [facility] CPT-4: 39205 12/13/2017 ([id number]) 31393 EST. 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 P ATIENT, LEVEL IV Diagnosis: Pouchitis[ICD10: K91.850] Diagnosis: Other fatigue[ICD10: R53.83] Diagnosis: Type 2 diabetes mellitus with hyperglycemia[ICD10: E11.65] Diagnosis: Essential (primary) hypertension[ICD10: I10] Diagnosis: Orthostatic hypotension[ICD10: I95.1] Maude Man MD, [facility] CPT-4: 60850 08/23/2017 ([id number]) Miscellaneou s no charge Diagnosis: Type 2 diabetes mellitus with hyperglycemia[ICD10: E11.65] Shae Man MD, [facility] CPT-4: 54976 06/25/2017 ([id number]) 89209 EST. P ATIENT, LEVEL IV Diagnosis: Type 2 diabetes mellitus with hyperglycemia[ICD10: E11.65] Maude Man MD, [facility] CPT-4: 03435 06/11/2017 ([id number]) [id number] EST. P ATIENT, LEVEL IV Diagnosis: Type 2 diabetes mellitus with hyperglycemia[ICD10: E11.65] Diagnosis: Essential (primary) hypertension[ICD10: I10] Diagnosis: Acute recurrent maxillary sinusitis[ICD10: J01.01] [facility] CPT-4: 13280 06/04/2017 OFFICE VISIT, NEW - LEVEL 4 Diagnosis: Left lower quadrant pain[ICD10: R10.32] Diagnosis: Other ulcerative colitis with unspecified complications[ICD10: K51.819] Diagnosis: Essential (primary) hypertension[ICD10: I10] Diagnosis: Type 2 diabetes mellitus without complications[ICD10: E11.9] Diagnosis: Major depressive disorder, recurrent, in partial remission[ICD10: F33.41] Diagnosis: Melena[ICD10: K92.1] [facility] CPT-4: 64237 04/24/2017 Plan of Care Planned Activity Notes C odes Status Date Referral: Megha Garcia Referral Completed 01/15/2018 Appointment: Maude [facility] [place] ([facility] min) Moderate 12/13/2017 Patient Education: Patient Medication Summary Completed 12/13/2017 Patient Education: Diabetes Completed 12/13/2017 Patient Education: Hypertension Completed 12/13/2017 Care Plan: Referral Order SNOMED-CT : [id number] Pending 12/13/2017 Appointment: Maude Man WPtel[facility] [place] ([facility] min) Moderate 11/26/2017 Appointment: Maude Man WPtel: [facility] [place] ([place] min) Moderate 09/18/2017 Patient Education: Patient Medication Summary Completed 09/18/2017 Referral: External, Ordering Provider Patient informed. Referral info faxed. Completed 09/17/2017 Appointment: Maude Man WPtel[facility] [place] ([place] min) Moderate 09/06/2017 Appointment: Maude Man WPtel: [facility] [address] [place] (15 min) Moderate 08/23/2017 Patient Education: Patient Medication Summary Completed 08/23/2017 Care Plan: Comp Metabolic Cancelled 08/23/2017 Care Plan: Cbc With Differential Cancelled 08/23/2017 Care Plan: %Hba1C NATTY C : 46081-8 Cancelled 08/23/2017 Care Plan: Magnesium Cancelled 08/23/2017 Care Plan: Referral Order SNOMED-CT : [id number] Pending 08/23/2017 Appointment: Maude Man WPtel: [address] [facility] [address] [place] (15 min) Moderate 08/13/2017 Patient Education: Patient Medication Summary Completed 06/25/2017 Appointment: Maude Man WPtel: [facility] (15 min) Moderate 06/21/2017 Appointment: Shae Guerrero WPtel: [facility] [place] ([facility] min) Complex 06/20/2017 Patient Education: Patient Medication Summary Completed 06/20/2017 Patient Education: Patient Medication Summary Completed 06/11/2017 Patient Education: Patient Medication Summary Completed 06/04/2017 App[facility]ment: Ana Burrell [facility] [facility] [place] [place] (30 min) Complex 05/31/2017 Appointment: Ana Burrell WPtel: [facility] [place] [place] (30 min) Complex 05/29/2017 Appointment: Ana Burrell WPtel: [facility] [place] [place] (30 min) Complex 05/24/2017 Appointment: Ana Burrell WPtel: [address] [facility] [place] New Patient 04/24/2017 Patient Education: Patient Medication Summary Completed 04/24/2017 Appointment: Shae Guerrero WPtel: [facility] [place] New Patient 04/20/2017 Referral: External, Ordering Provider Referral Appointment Requested Referral: Megha Garcia Referral Appointment Requested Instructions No Instructions
--- OUTSIDE RECORDS SUMMARY | 2019-01-29 06:20 | XMS REPORT | CCD ---
Author Author Baylee Burrell Organization Maude Man MD, [facility] Address [address] [place] [address] Phone Care Team Providers Care Surgery Consultant Name Role Phone PP Unavailable CCM Unavailable Summary Purpose Interface Exchange Insurance Providers Payer name Policy type / Coverage type Covered alliance party ID Effective Begin Date Effective End Date WPS Medicare Part B Blue Cross/Blue Shield [id number] Unknown Blue Cross Blue Shield [facility] [place] e Cross/Blue Shield [id number] Un known Blue Cross/Blue Shield [id number] 2017 Unknown Family history Sister Diagnosis Age [...] 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/[address]: 624742199 Never smoker 04/24/[address]: 120008687 Never drinks alcohol 04/24/2017 Allergies, Adverse Reactions, Alerts Substance Reaction Codes Entered Date Inactivated Date Status Levaquin RxNorm: 60338 04/24/2017 No Inactive Date Active Past Medical [...] Date Stop Date Sta tus Fill Instructions venlafaxine ER 150 m g tablet,extended release 24 hr RxNorm: 631757 TAKE ONE CAPSULE BY MOUTH DAILY 10/11/2017 07/07/2018 Active metoprolol succinate ER 50 mg tablet,extended release 24 hr RxNorm: 878909 TAKE ONE TABLET BY MOUTH DAILY 10/11/2017 07/07/2018 Active atorvastatin 40 mg t ablet RxNorm: 329650 TAKE ONE TABLET BY [facility] EVERY EVENING 10/11/2017 07/07/2018 Ac tive metoprolol succinate ER 25 mg tablet,extended release 24 hr RxNorm: 411657 1/2 Tablet(s) PO daily 09/18/2017 03/16/2018 Active metronidazole 500 mg tablet RxNorm: 299017 1 Tablet(s) PO TID 08/23/2017 09/01/2017 Inactive Diflucan 150 mg tablet RxNorm: 146801 1 Tablet(s) PO daily 08/23/2017 09/01/2017 Inactive atorvastatin 40 mg t ablet RxNorm: 629841 1 Tablet(s) PO QPM 08/02/2017 10/10/2017 Inactive Sudeep Chang U-30 0 Insulin 300 unit/mL (1.5 mL) subcutaneous pen RxNorm: 3055064 40 Unit(s) SQ daily 07/30/2017 01/25/2018 Active Novofine 32 32 gauge x 1/4" needle RxNorm: USE TO TEST BLOOD SUGAR ONC E DAILY 07/26/2017 04/16/2019 Ac tive Toujeo SoloStar U-30 0 Insulin 300 unit/mL (1.5 mL) subcutaneous pen RxNorm: 2874157 INJECT 24 UNITS UNDER THE SKIN EVERY EVENING 07/26/2017 07/29/2017 Inactive Apidra U-100 Insulin 100 unit/mL subcutaneous solution RxNorm: 360090 5 Unit(s) SQ AC 06/06/2017 06/06/2017 Inactive start with 5 units with breakfast -call with blood sugars in 1 week Keflex 500 mg capsule RxNorm: 657881 1 Capsule(s) PO TID 06/04/2017 06/10/2017 Inactive Apidra U-100 Insulin 100 unit/mL subcutaneous solution RxNorm: 526025 5 Unit(s) SQ AC 06/04/2017 06/05/2017 Inactive start with 5 units with breakfast -call with blood sugars in 1 week Restasis 0.05 % eye drops in a dropperette RxNorm: 953693 1 gtts ophthalmic (ey e) Q12H 06/04/2017 07/03/2017 Inactive Toujeo SoloStar U-30 0 Insulin 300 unit/mL (1.5 mL) subcutaneous pen RxNorm: 6358330 28 Unit(s) SQ QPM x1 week, then 32 units daily. 04/26/2017 08/28/2017 Inactive Restasis MultiDose 0 .05 % eye drops RxNorm: 960068 1 Drop(s) ophthalmic (eye) daily - BID 04/24/2017 No Stop Date Active cyanocobalamin (vit B-12) 1,000 mcg/mL injection solution RxNorm: 367301 1 Milliliter(s) Inj QW -BIW 04/24/2017 07/22/2017 Inactive disp with syringes please Toujeo SoloStar U-30 0 Insulin 300 unit/mL (1.5 mL) subcutaneous pen RxNorm: 5299566 24 Unit(s) SQ QPM 04/24/2017 04/23/2017 Inactive Novofine 32 32 gauge x 1/4" needle RxNorm: 1 test Miscellaneous daily 04/24/2017 07/22/2017 In active E11.65 use with sudeep venlafaxine ER 150 m g tablet,extended release 24 hr RxNorm: 133031 1 Tablet(s) PO daily 04/24/2017 10/10/2017 Inactive cyanocobalamin (vit B-12) 1,000 mcg/mL injection solution RxNorm: 636125 1 Milliliter(s) Inj QW -BIW 04/24/2017 04/23/2017 Inactive metoprolol succinate ER 50 mg tablet,extended release 24 hr RxNorm: 054543 1 Tablet(s) PO daily 04/24/2017 09/17/2017 Inactive Toudov SoloStar U-30 0 Insulin 300 unit/mL (1.5 mL) subcutaneous pen RxNorm: 9842217 24 Unit(s) SQ QPM 04/24/2017 04/25/2017 Inactive Centrum Silver tablet RxNorm: 1 Tablet(s) PO daily No Start Date Active Novolog U-100 Insuli n aspart 100 unit/mL subcutaneous solution RxNorm: 655710 5 Unit(s) SQ AC No Start Date Active magnesium 250 mg tablet RxNorm: 1 Tablet(s) PO as needed No Start Date Active Probiotic Blend oral RxNorm: 159931 oral No Start Date Active Calcium 600 + D(3) 6 00 mg (1,500 mg)-400 unit tablet RxNorm: 348751 1 Tablet(s) PO as needed No Start Date Active atorvastatin 40 mg t ablet RxNorm: 590670 1 Tablet(s) PO QPM No Start Date 08/01/2017 Inactive Novofine 32 32 gauge x 1/4" needle RxNorm: 1 Miscellaneous daily No Start Date 04/23/2017 Inactive cyanocobalamin (vit B-12) 1,000 mcg/mL injection solution RxNorm: 690416 1 Milliliter(s) Inj No Start Date 04/23/2017 Inactive metoprolol succinate ER 50 mg tablet,extended release 24 hr RxNorm: 889336 1 Tablet(s) PO daily No Start Date 04/23/2017 Inactive lisinopril 5 mg tablet RxNorm: 139293 1 Tablet(s) PO QPM No Start Date 04/23/2017 Inactive Restasis MultiDose 0 .05 % eye drops RxNorm: 241300 Drop(s) ophthalmic (e ye) No Start Date 04/23/2017 Inactive venlafaxine ER 150 m g capsule,extended release 24 hr RxNorm: 086855 1 Capsule(s) PO daily No Start Date [...] Ord30 C/HDL 2.7 Ratio 12/13/2017 Comp Metabolic Upp983 NA 140 mEq/L 12/13/2017 Comp Metabolic Nuo853 K 4.4 mEq/L 12/13/2017 Comp Metabolic Npg648 CL 107 mEq/L 12/13/2017 Comp Metabolic Tjy952 CO2 23.0 mEq/L 12/13/2017 Comp Metabolic Yzw406 AN ION GAP 14 12/13/2017 Comp Metabolic Csv061 GL UCOSE 179 mg/dL 12/13/2017 Comp Metabolic Yty038 Cr eat 1.7 mg/dL 12/13/2017 Comp Metabolic Xdo873 eG FR 31 ml/min/1.73m2 12/13 Comp Metabolic Mlk433 BUN 40 mg/dL 12/13/2017 Comp Metabolic Iyx037 B/ C Ratio 23.3 Ratio 12/13/2017 Comp Metabolic Ztf845 CA LCIUM 10.3 mg/dL 12/13/2017 Comp Metabolic Vik693 AL K PHOS 54 U/L 12/13/2017 Comp Metabolic Trx405 T(SGOT) 41 U/L 12/13/2017 Comp Metabolic Vax528 AL T(SGPT) 44 U/L 12/13/2017 Comp Metabolic Rwx419 BI LI T 0.4 mg/dL 12/13/2017 Comp Metabolic Dfv662 AL BUMIN 4.9 g/dL 12/13/2017 Comp Metabolic Ppm797 TP RO 7.7 g/dL 12/13/2017 Comp Metabolic Bka482 GL OB 2.8 g/dL 12/13/2017 Comp Metabolic Vuh249 A/ G Ratio 1.8 Ratio 12/13/2017 Comp Metabolic Isg262 Os mo 294 mOsmo 12/13/2017 Tsh Ord6 TSH (3rd IS) 2.56 uIU/mL 12/13/2017 %Hba1C Ehm008 % HbA1c 77192-7 9.6 % 12/13/2017 %Hba1C Nbp057 Gluc Ave 229 mg/dL 12/13/2017 Cbc With [...] 98.8 fl 12/13/2017 Cbc With Differential Ord2 [place]% 8.0 % 12/13/2017 Cbc With Differential Ord2 [...] 1.44 K/ul 12/13/2017 Cbc With Differential Ord2 [place] ABS# 0.5 K/ul 12/13/2017 Cbc With Differential Ord2 Eos ABS# 0.1 K/ul 12/13/2017 Cbc With Differential Ord2 Baso ABS# 0.0 K/ul 12/13/2017 %Hba1C Msm127 % HbA1c 94698-6 13.1 % 04/24/2017 %Hba1C Xel825 Gluc Ave 329 mg/dL 04/24/2017 Cbc With [...] 32.0 pg 04/24/2017 Cbc With Differential Ord2 [place]% 11.0 % 04/24/2017 Cbc With Differential Ord2 [...] 2.39 K/ul 04/24/2017 Cbc With Differential Ord2 [place] ABS# 0.8 K/ul 04/24/2017 Cbc With Differential Ord2 Eos ABS# 0.1 K/ul 04/24/2017 Cbc With Differential Ord2 Baso ABS# 0.0 K/ul 04/24/2017 Comp Metabolic Qob957 NA 142 mEq/L 04/24/2017 Comp Metabolic Pjy865 K 3.8 mEq/L 04/24/2017 Comp Metabolic Use132 CL 105 mEq/L 04/24/2017 Comp Metabolic Wnv081 CO2 27.0 mEq/L 04/24/2017 Comp Metabolic Fuk974 AN ION GAP 14 04/24/2017 Comp Metabolic Wnv650 GL UCOSE 203 mg/dL 04/24/2017 Comp Metabolic Sni017 Cr eat 1.9 mg/dL 04/24/2017 Comp Metabolic Ejm674 eG FR 28 ml/min/1.73m2 04/24 Comp Metabolic Yhr750 BUN 26 mg/dL 04/24/2017 Comp Metabolic Nny572 B/ C Ratio 13.6 Ratio 04/24/2017 Comp Metabolic Syu736 CA LCIUM 9.9 mg/dL 04/24/2017 Comp Metabolic Fhr679 AL K PHOS 79 U/L 04/24/2017 Comp Metabolic Jnj559 T(SGOT) 25 U/L 04/24/2017 Comp Metabolic Tse589 AL T(SGPT) 36 U/L 04/24/2017 Comp Metabolic Nzc569 BI LI T 0.3 mg/dL 04/24/2017 Comp Metabolic Uwk336 AL BUMIN 4.5 g/dL 04/24/2017 Comp Metabolic Lii468 TP RO 6.9 g/dL 04/24/2017 Comp Metabolic Eae671 GL OB 2.5 g/dL 04/24/2017 Comp Metabolic Qaq402 A/ G Ratio 1.8 Ratio 04/24/2017 Comp Metabolic Dat287 Os mo 294 mOsmo 04/24/2017 Review of [...] GLUC MONITOR CONT PH YS I&R CPT-4: 08843 09/18/2017 GLUCOSE MONITORING CONT CPT-4: 75442 06/20/2017 Vital Signs Date Vital 12/13/2017 Blood Pressure 1: 140/80 Code: 8480-6 BMI: 19.9 Code: 53059-3 Heart Rate 1: 72 bpm Height: 5'6" SpO2: 95% Weight: 125 lbs 09/18/2017 Blood Pressure 1: 126/82 Code: 8480-6 BMI: 20.0 Code: 93754-6 Heart Rate 1: 103 bpm Height: 5'6" SpO2: 98% Weight: 126 lbs 08/23/2017 Blood Pressure 1: 118/62 Code: 8480-6 Heart Rate 1: 110 bpm Height: 5'6" SpO2: 95% Temperature: 37.1 (C ) / 98.7 (F) 06/20/2017 Heigh t: Weight: 06/11/2017 Blood Pressure 1: 142/76 Code: 8480-6 BMI: 21.3 Code: 43777-6 Heart Rate 1: 102 bpm Height: 5'6" SpO2: 97% Weight: 134 lbs 06/04/2017 Blood Pressure 1: 160/84 Code: 8480-6 BMI: 20.8 Code: 30181-0 Heart Rate 1: 87 bpm Height: 5'6" SpO2: 97% Weight: 131 lbs 04/24/2017 Blood Pressure 1: 132/80 Code: 8480-6 BMI: 20.8 Code: 99632-0 Heart Rate 1: 84 bpm Height: 5'6" [...] Encounters Encounter Performer Loca tion Codes Date ([id number]) 08147 EST. P ATIENT, LEVEL IV Diagnosis: Type 2 diabetes mellitus with hyperglycemia[ICD10: E11.65] Diagnosis: Essential (primary) hypertension[ICD10: I10] Diagnosis: Other fatigue[ICD10: R53.83] Maude Man MD, [facility] CPT-4: 64087 12/13/2017 ([id number]) 22090 EST. 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 P ATIENT, LEVEL IV Diagnosis: Pouchitis[ICD10: K91.850] Diagnosis: Other fatigue[ICD10: R53.83] Diagnosis: Type 2 diabetes mellitus with hyperglycemia[ICD10: E11.65] Diagnosis: Essential (primary) hypertension[ICD10: I10] Diagnosis: Orthostatic hypotension[ICD10: I95.1] Maude Man MD, [facility] CPT-4: 75294 08/23/2017 ([id number]) Miscellaneou s no charge Diagnosis: Type 2 diabetes mellitus with hyperglycemia[ICD10: E11.65] Shae Man MD, [facility] CPT-4: 77736 06/25/2017 ([id number]) 70253 EST. P ATIENT, LEVEL IV Diagnosis: Type 2 diabetes mellitus with hyperglycemia[ICD10: E11.65] Maude Man MD, [facility] CPT-4: 14284 06/11/2017 ([id number]) 80235 EST. P ATIENT, LEVEL IV Diagnosis: Type 2 diabetes mellitus with hyperglycemia[ICD10: E11.65] Diagnosis: Essential (primary) hypertension[ICD10: I10] Diagnosis: Acute recurrent maxillary sinusitis[ICD10: J01.01] Ana Man MD, [facility] CPT-4: 64325 06/04/2017 OFFICE VISIT, NEW - LEVEL 4 Diagnosis: Left lower quadrant pain[ICD10: R10.32] Diagnosis: Other ulcerative colitis with unspecified complications[ICD10: K51.819] Diagnosis: Essential (primary) hypertension[ICD10: I10] Diagnosis: Type 2 diabetes mellitus without complications[ICD10: E11.9] Diagnosis: Major depressive disorder, recurrent, in partial remission[ICD10: F33.41] Diagnosis: Melena[ICD10: K92.1] [facility] CPT-4: 66711 04/24/2017 Plan of Care Planned Activity Notes C odes Status Date Visit Plan: Diabetes Mellitus - [facility] ontrolled - per recent FSBS [...] Dr. Gracia. Referral has been made. 12/13/2017 Patient Education: Patient Medication Summary Completed 12/13/2017 Patient Education: Diabetes Completed 12/13/2017 Patient Education: Hypertension Completed 12/13/2017 Care Plan: Referral Order SNOMED-CT : [id number] Pending 12/13/2017 Appointment: Maude Man [facility]el[facility] (15 min) Moderate 11/26/2017 Visit Plan: Diabetes Mellitus - [facility] ontrolled - per recent FSBS [...] through 09/18/2017 App[facility]ment: Maude Man [facility]el[facility] [phone] [facility] [place] (15 min) Moderate 09/18/2017 Patient Education: Patient Medication Summary Completed 09/18/2017 Referral: External, Ordering Provider Patient informed. Referral info faxed. Completed 09/17/2017 App[facility]ment[facility] [phone] [facility] [place] (15 min) Moderate 09/06/2017 Visit [...] 08/23/2017 Appointment: Maude Man WPtel: [phone] [facility] (15 min) Moderate 08/23/2017 Patient Education: Patient Medication Summary Completed 08/23/2017 Care Plan: Comp Metabolic Cancelled 08/23/2017 Care Plan: Cbc With Differential Cancelled 08/23/2017 Care Plan: %Hba1C LOKANDI C : 80396-9 Cancelled 08/23/2017 Care Plan: Magnesium Cancelled 08/23/2017 Care Plan: Referral Order SNOMED-CT : [id number] Pending 08/23/2017 Appointment: Maude Man WPtel: [facility] (15 min) Moderate 08/13/2017 Visit Plan: CGM removed - pt tolera jomar procedure well - no changes at this time. 06/25/2017 Patient Education: Patient Medication Summary Completed 06/25/2017 Appointment: Maude Man WPtel: [facility] (15 min) Moderate 06/21/2017 Visit Plan: Continuous [...] control. 06/20/2017 App[facility]ment[facility] [phone] [facility] ([facility] min) [facility] 06/20/2017 Patient Education: Patient Medication Summary Completed 06/20/2017 Visit Plan: Diabetes Mellitus - [facility] ontrolled - per recent FSBS [...] Summary Completed 06/04/2017 Appointment: Indra Ana WPtel: [phone] [phone] (30 min) Complex 05/31/2017 Appointment: Indra Ana WPtel: [phone] [phone] (30 min) Complex 05/29/2017 Appointment: Indra Ana WPtel: [phone] [phone] (30 min) Complex 05/24/2017 Visit Plan: Left [...] current medications. 04/24/2017 Appointment: Ana Burrell WPtel: [id number] [place] [address] New Patient 04/24/2017 Patient Education: Patient Medication Summary Completed 04/24/2017 Appointment: Shae Guerrero WPtel: [facility] New Patient 04/20/2017 Referral: External, Ordering Provider [...]
--- OUTSIDE RECORDS SUMMARY | 2019-01-29 06:20 | XMS REPORT | CCD ---
Author Author Baylee Burrell Organization Maude Man MD, [facility] Address [address] [place] [address] Phone Care Team Providers Care Field Account Director Name Role Phone PP Unavailable CCM Unavailable Summary Purpose Interface Exchange Insurance Providers Payer name Policy type / Coverage type Covered republican ID Effective Begin Date Effective End Date WPS Medicare Part B Blue Cross/Blue Shield [id number] Unknown Blue Cross Blue Shield [facility] Cross/Blue Shield [id number] Un known Blue Cross/Blue Shield [id number] 2017 Unknown Family history Sister Diagnosis Age [...] 1 04/24/2017 Employment Unknown [employer] 04/24/[address]: 166694747 Never smoker 04/24/[address]: 751113176 Never drinks alcohol 04/24/2017 Allergies, Adverse Reactions, Alerts Substance Reaction Codes Entered Date Inactivated Date Status Levaquin RxNorm: 15354 04/24/2017 No Inactive Date Active Past Medical [...] Date Stop Date Sta tus Fill Instructions atorvastatin 40 mg t ablet RxNorm: 960958 TAKE ONE TABLET BY [facility] EVERY EVENING 12/17/2017 06/14/2018 Ac tive venlafaxine ER 150 m g tablet,extended release 24 hr RxNorm: 905596 TAKE ONE CAPSULE BY MOUTH DAILY 10/11/2017 07/07/2018 Active metoprolol succinate ER 50 mg tablet,extended release 24 hr RxNorm: 603690 TAKE ONE TABLET BY MOUTH DAILY 10/11/2017 07/07/2018 Active atorvastatin 40 mg t ablet RxNorm: 388229 TAKE ONE TABLET BY [facility] EVERY EVENING 10/11/2017 12/16/2017 In active metoprolol succinate ER 25 mg tablet,extended release 24 hr RxNorm: 772396 1/2 Tablet(s) PO daily 09/18/2017 03/16/2018 Active metronidazole 500 mg tablet RxNorm: 158153 1 Tablet(s) PO TID 08/23/2017 09/01/2017 Inactive Diflucan 150 mg tablet RxNorm: 392705 1 Tablet(s) PO daily 08/23/2017 09/01/2017 Inactive atorvastatin 40 mg t ablet RxNorm: 926338 1 Tablet(s) PO QPM 08/02/2017 10/10/2017 Inactive Toujeo SoloStar U-30 0 Insulin 300 unit/mL (1.5 mL) subcutaneous pen RxNorm: 0096601 40 Unit(s) SQ daily 07/30/2017 01/25/2018 Active Novofine 32 32 gauge x 1/4" needle RxNorm: USE TO TEST BLOOD SUGAR ONC E DAILY 07/26/2017 04/16/2019 Ac tive Toujeo SoloStar U-30 0 Insulin 300 unit/mL (1.5 mL) subcutaneous pen RxNorm: 6525475 INJECT 24 UNITS UNDER THE SKIN EVERY EVENING 07/26/2017 07/29/2017 Inactive Apidra U-100 Insulin 100 unit/mL subcutaneous solution RxNorm: 046826 5 Unit(s) SQ AC 06/06/2017 06/06/2017 Inactive start with 5 units with breakfast -call with blood sugars in 1 week Keflex 500 mg capsule RxNorm: 488327 1 Capsule(s) PO TID 06/04/2017 06/10/2017 Inactive Apidra U-100 Insulin 100 unit/mL subcutaneous solution RxNorm: 512994 5 Unit(s) SQ AC 06/04/2017 06/05/2017 Inactive start with 5 units with breakfast -call with blood sugars in 1 week Restasis 0.05 % eye drops in a dropperette RxNorm: 911248 1 gtts ophthalmic (ey e) Q12H 06/04/2017 07/03/2017 Inactive Toujeo SoloStar U-30 0 Insulin 300 unit/mL (1.5 mL) subcutaneous pen RxNorm: 5202660 28 Unit(s) SQ QPM x1 week, then 32 units daily. 04/26/2017 08/28/2017 Inactive Restasis MultiDose 0 .05 % eye drops RxNorm: 890048 1 Drop(s) ophthalmic (eye) daily - BID 04/24/2017 No Stop Date Active cyanocobalamin (vit B-12) 1,000 mcg/mL injection solution RxNorm: 513810 1 Milliliter(s) Inj QW -BIW 04/24/2017 07/22/2017 Inactive disp with syringes please Toujeo SoloStar U-30 0 Insulin 300 unit/mL (1.5 mL) subcutaneous pen RxNorm: 2998367 24 Unit(s) SQ QPM 04/24/2017 04/23/2017 Inactive Novofine 32 32 gauge x 1/4" needle RxNorm: 1 test Miscellaneous daily 04/24/2017 07/22/2017 In active E11.65 use with toudov venlafaxine ER 150 m g tablet,extended release 24 hr RxNorm: 323729 1 Tablet(s) PO daily 04/24/2017 10/10/2017 Inactive cyanocobalamin (vit B-12) 1,000 mcg/mL injection solution RxNorm: 956668 1 Milliliter(s) Inj QW -BIW 04/24/2017 04/23/2017 Inactive metoprolol succinate ER 50 mg tablet,extended release 24 hr RxNorm: 865938 1 Tablet(s) PO daily 04/24/2017 09/17/2017 Inactive Sudeep SoloStar U-30 0 Insulin 300 unit/mL (1.5 mL) subcutaneous pen RxNorm: 4506743 24 Unit(s) SQ QPM 04/24/2017 04/25/2017 Inactive Centrum Silver tablet RxNorm: 1 Tablet(s) PO daily No Start Date Active Novolog U-100 Insuli n aspart 100 unit/mL subcutaneous solution RxNorm: 325170 5 Unit(s) SQ AC No Start Date Active magnesium 250 mg tablet RxNorm: 1 Tablet(s) PO as needed No Start Date Active Probiotic Blend oral RxNorm: 111065 oral No Start Date Active Calcium 600 + D(3) 6 00 mg (1,500 mg)-400 unit tablet RxNorm: 658739 1 Tablet(s) PO as needed No Start Date Active atorvastatin 40 mg t ablet RxNorm: 191220 1 Tablet(s) PO QPM No Start Date 08/01/2017 Inactive Novofine 32 32 gauge x 1/4" needle RxNorm: 1 Miscellaneous daily No Start Date 04/23/2017 Inactive cyanocobalamin (vit B-12) 1,000 mcg/mL injection solution RxNorm: 878473 1 Milliliter(s) Inj No Start Date 04/23/2017 Inactive metoprolol succinate ER 50 mg tablet,extended release 24 hr RxNorm: 282562 1 Tablet(s) PO daily No Start Date 04/23/2017 Inactive lisinopril 5 mg tablet RxNorm: 640175 1 Tablet(s) PO QPM No Start Date 04/23/2017 Inactive Restasis MultiDose 0 .05 % eye drops RxNorm: 897599 Drop(s) ophthalmic (e ye) No Start Date 04/23/2017 Inactive venlafaxine ER 150 m g capsule,extended release 24 hr RxNorm: 711132 1 Capsule(s) PO daily No Start Date [...] Ord30 C/HDL 2.7 Ratio 12/13/2017 Comp Metabolic Unr211 NA 140 mEq/L 12/13/2017 Comp Metabolic Wsy221 K 4.4 mEq/L 12/13/2017 Comp Metabolic Pdz860 CL 107 mEq/L 12/13/2017 Comp Metabolic Lrk757 CO2 23.0 mEq/L 12/13/2017 Comp Metabolic Saz032 AN ION GAP 14 12/13/2017 Comp Metabolic Ibt113 GL UCOSE 179 mg/dL 12/13/2017 Comp Metabolic Gdm889 Cr eat 1.7 mg/dL 12/13/2017 Comp Metabolic Alf321 eG FR 31 ml/min/1.73m2 12/13 Comp Metabolic Oyr361 BUN 40 mg/dL 12/13/2017 Comp Metabolic Fbh012 B/ C Ratio 23.3 Ratio 12/13/2017 Comp Metabolic Gxi168 CA LCIUM 10.3 mg/dL 12/13/2017 Comp Metabolic Hwz005 AL K PHOS 54 U/L 12/13/2017 Comp Metabolic Bme469 T(SGOT) 41 U/L 12/13/2017 Comp Metabolic Ztu843 AL T(SGPT) 44 U/L 12/13/2017 Comp Metabolic Lua293 BI LI T 0.4 mg/dL 12/13/2017 Comp Metabolic Oqj773 AL BUMIN 4.9 g/dL 12/13/2017 Comp Metabolic Jsh287 TP RO 7.7 g/dL 12/13/2017 Comp Metabolic Mmd293 GL OB 2.8 g/dL 12/13/2017 Comp Metabolic Mkh447 A/ G Ratio 1.8 Ratio 12/13/2017 Comp Metabolic Vhe267 Os mo 294 mOsmo 12/13/2017 Tsh Ord6 TSH (3rd IS) 2.56 uIU/mL 12/13/2017 %Hba1C Gvg538 % HbA1c 13758-8 9.6 % 12/13/2017 %Hba1C Nur689 Gluc Ave 229 mg/dL 12/13/2017 Cbc With [...] 98.8 fl 12/13/2017 Cbc With Differential Ord2 [place]% 8.0 % 12/13/2017 Cbc With Differential Ord2 [...] 1.44 K/ul 12/13/2017 Cbc With Differential Ord2 [place] ABS# 0.5 K/ul 12/13/2017 Cbc With Differential Ord2 Eos ABS# 0.1 K/ul 12/13/2017 Cbc With Differential Ord2 Baso ABS# 0.0 K/ul 12/13/2017 %Hba1C Mbi116 % HbA1c 36951-4 13.1 % 04/24/2017 %Hba1C Gbw292 Gluc Ave 329 mg/dL 04/24/2017 Cbc With [...] 32.0 pg 04/24/2017 Cbc With Differential Ord2 [place]% 11.0 % 04/24/2017 Cbc With Differential Ord2 [...] 2.39 K/ul 04/24/2017 Cbc With Differential Ord2 [place] ABS# 0.8 K/ul 04/24/2017 Cbc With Differential Ord2 Eos ABS# 0.1 K/ul 04/24/2017 Cbc With Differential Ord2 Baso ABS# 0.0 K/ul 04/24/2017 Comp Metabolic Yio869 NA 142 mEq/L 04/24/2017 Comp Metabolic Wko475 K 3.8 mEq/L 04/24/2017 Comp Metabolic Hpt661 CL 105 mEq/L 04/24/2017 Comp Metabolic Vag830 CO2 27.0 mEq/L 04/24/2017 Comp Metabolic Fuh303 AN ION GAP 14 04/24/2017 Comp Metabolic Ipy031 GL UCOSE 203 mg/dL 04/24/2017 Comp Metabolic Srf838 Cr eat 1.9 mg/dL 04/24/2017 Comp Metabolic Lem987 eG FR 28 ml/min/1.73m2 04/24 Comp Metabolic Nsj663 BUN 26 mg/dL 04/24/2017 Comp Metabolic Bcr397 B/ C Ratio 13.6 Ratio 04/24/2017 Comp Metabolic Tkc365 CA LCIUM 9.9 mg/dL 04/24/2017 Comp Metabolic Brr628 AL K PHOS 79 U/L 04/24/2017 Comp Metabolic Txz416 T(SGOT) 25 U/L 04/24/2017 Comp Metabolic Fff929 AL T(SGPT) 36 U/L 04/24/2017 Comp Metabolic Yfn242 BI LI T 0.3 mg/dL 04/24/2017 Comp Metabolic Iax124 AL BUMIN 4.5 g/dL 04/24/2017 Comp Metabolic Uzj667 TP RO 6.9 g/dL 04/24/2017 Comp Metabolic Tmv660 GL OB 2.5 g/dL 04/24/2017 Comp Metabolic Jwp264 A/ G Ratio 1.8 Ratio 04/24/2017 Comp Metabolic Dhd290 Os mo 294 mOsmo 04/24/2017 Review of [...] GLUC MONITOR CONT PH YS I&R CPT-4: 41483 09/18/2017 GLUCOSE MONITORING CONT CPT-4: 95087 06/20/2017 Vital Signs Date Vital 12/13/2017 Blood Pressure 1: 140/80 Code: 8480-6 BMI: 19.9 Code: 08933-1 Heart Rate 1: 72 bpm Height: 5'6" SpO2: 95% Weight: 125 lbs 09/18/2017 Blood Pressure 1: 126/82 Code: 8480-6 BMI: 20.0 Code: 26228-9 Heart Rate 1: 103 bpm Height: 5'6" SpO2: 98% Weight: 126 lbs 08/23/2017 Blood Pressure 1: 118/62 Code: 8480-6 Heart Rate 1: 110 bpm Height: 5'6" SpO2: 95% Temperature: 37.1 (C ) / 98.7 (F) 06/20/2017 Heigh t: Weight: 06/11/2017 Blood Pressure 1: 142/76 Code: 8480-6 BMI: 21.3 Code: 41405-5 Heart Rate 1: 102 bpm Height: 5'6" SpO2: 97% Weight: 134 lbs 06/04/2017 Blood Pressure 1: 160/84 Code: 8480-6 BMI: 20.8 Code: 41300-0 Heart Rate 1: 87 bpm Height: 5'6" SpO2: 97% Weight: 131 lbs 04/24/2017 Blood Pressure 1: 132/80 Code: 8480-6 BMI: 20.8 Code: 09578-1 Heart Rate 1: 84 bpm Height: 5'6" [...] Encounters Encounter Performer Loca tion Codes Date ([id number]) [id number] EST. [facility] Diagnosis: Type 2 diabetes mellitus with hyperglycemia[ICD10: E11.65] Diagnosis: Essential (primary) hypertension[ICD10: I10] Diagnosis: Other fatigue[ICD10: R53.83] Maude Man MD, [facility] CPT-4: 76880 12/13/2017 ([id number]) 51766 EST. 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 P ATIENT, LEVEL IV Diagnosis: Pouchitis[ICD10: K91.850] Diagnosis: Other fatigue[ICD10: R53.83] Diagnosis: Type 2 diabetes mellitus with hyperglycemia[ICD10: E11.65] Diagnosis: Essential (primary) hypertension[ICD10: I10] Diagnosis: Orthostatic hypotension[ICD10: I95.1] Maude Man MD, [facility] CPT-4: 97653 08/23/2017 ([id number]) Miscellaneou s no charge Diagnosis: Type 2 diabetes mellitus with hyperglycemia[ICD10: E11.65] Shae Man MD, [facility] CPT-4: 40806 06/25/2017 ([id number]) 09854 EST. P ATIENT, LEVEL IV Diagnosis: Type 2 diabetes mellitus with hyperglycemia[ICD10: E11.65] Maude Man MD, [facility] CPT-4: 52174 06/11/2017 ([id number]) 52197 EST. P ATIENT, LEVEL IV Diagnosis: Type 2 diabetes mellitus with hyperglycemia[ICD10: E11.65] Diagnosis: Essential (primary) hypertension[ICD10: I10] Diagnosis: Acute recurrent maxillary sinusitis[ICD10: J01.01] Ana Man MD, [facility] CPT-4: 58299 06/04/2017 OFFICE VISIT, NEW - LEVEL 4 Diagnosis: Left lower quadrant pain[ICD10: R10.32] Diagnosis: Other ulcerative colitis with unspecified complications[ICD10: K51.819] Diagnosis: Essential (primary) hypertension[ICD10: I10] Diagnosis: Type 2 diabetes mellitus without complications[ICD10: E11.9] Diagnosis: Major depressive disorder, recurrent, in partial remission[ICD10: F33.41] Diagnosis: Melena[ICD10: K92.1] Ana Man MD, [facility] CPT-4: 71603 04/24/2017 Plan of Care Planned Activity Notes [...] been made. 12/13/2017 Appointment: Maude Man [facility] ([facility] min) Moderate 12/13/2017 Patient Education: Patient Medication Summary Completed 12/13/2017 Patient Education: Diabetes Completed 12/13/2017 Patient Education: Hypertension Completed 12/13/2017 Care Plan: Referral Order SNOMED-CT : [id number] Pending 12/13/2017 Appointment: Maude Man WPtel[facility] (15 min) Moderate 11/26/2017 Visit Plan: [...] 09/18/2017 App[facility]ment[facility]el[facility] [address] [facility] [place] (15 min) Moderate 09/18/2017 Patient Education: Patient Medication Summary Completed 09/18/2017 Referral: External, Ordering Provider Patient informed. Referral info faxed. Completed 09/17/2017 App[facility]ment[facility] [phone] [facility] [place] (15 min) Moderate 09/06/2017 Visit [...] Gracia. 08/23/2017 Appointment: Maude Man WPtel: [facility] (15 min) Moderate 08/23/2017 Patient Education: Patient Medication Summary Completed 08/23/2017 Care Plan: Comp Metabolic Cancelled 08/23/2017 Care Plan: Cbc With Differential Cancelled 08/23/2017 Care Plan: %Hba1C NATTY C : 75648-7 Cancelled 08/23/2017 Care Plan: Magnesium Cancelled 08/23/2017 Care Plan: Referral Order SNOMED-CT : 691118541 Pending 08/23/2017 Appointment: Maude Man WPtel[facility] (15 min) Moderate 08/13/2017 Visit Plan: CGM removed - pt tolera jomar procedure well - no changes at this time. 06/25/2017 Patient Education: Patient Medication Summary Completed 06/25/2017 Appointment: Maude Man WPtel: [facility] (15 min) Moderate 06/21/2017 Visit Plan: Continuous [...] glucose control. 06/20/2017 Appointment: Shae Guerrero WPtel: [address] [place], [place] [address] (30 min) [facility] 06/20/2017 Patient Education: Patient [...] Summary Completed 06/04/2017 Appointment: Ana Burrell WPtel: [phone] (30 min) Complex 05/31/2017 Appointment: Ana Burrell WPtel: [address] [place], [place] [phone] (30 min) Complex 05/29/2017 Appointment: Ana Burrell WPtel: [address] [place], [place] [phone] (30 min) Complex 05/24/2017 Visit Plan: Left [...] current medications. 04/24/2017 Appointment: Ana Burrell WPtel: [phone] New Patient 04/24/2017 Patient Education: Patient Medication Summary Completed 04/24/2017 Appointment: Shae Guerrero WPtel: [facility] New Patient 04/20/2017 Referral: External, [...]
== END 2019-01-06 14:40 | disposition home or self-care (01) | DRG 580 ==
LOC: EDUNIT# 16:20 → ER 16:21 → UNDOADMOB 20:05 → 4TH 20:05 → INTOOBSV 01-05 13:38 → OBSVTOIN 01-05 13:38 → UNDODISIN 01-06 14:40
PROVIDERS: ADMIT Family Medicine; ATTEND Family Medicine
PROC: 0J9P0ZZ Drainage of Left Lower Leg Subcutaneous Tissue and Fascia, Open Approach (ICD-10-PCS; principal; 2019-01-02)
DX: L02.416 Cutaneous abscess of left lower limb (principal); B95.61 Methicillin susceptible Staphylococcus aureus infection as the cause of diseases classified elsewhere; T63.301A Toxic effect of unspecified spider venom, accidental (unintentional), initial encounter; E11.65 Type 2 diabetes mellitus with hyperglycemia; N17.9 Acute kidney failure, unspecified; K51.90 Ulcerative colitis, unspecified, without complications; E11.622 Type 2 diabetes mellitus with other skin ulcer; L97.229 Non-pressure chronic ulcer of left calf with unspecified severity; I12.9 Hypertensive chronic kidney disease with stage 1 through stage 4 chronic kidney disease, or unspecified chronic kidney disease; N18.3 Chronic kidney disease, stage 3 (moderate); E11.22 Type 2 diabetes mellitus with diabetic chronic kidney disease; R11.0 Nausea; D64.9 Anemia, unspecified; Z91.19 Patient's noncompliance with other medical treatment and regimen; Z79.4 Long term (current) use of insulin
CPT/HCPCS: 10061; 36415; 36430; 80048; 80053; 81000; 82962; 85025; 85027; 87070; 87077; 87186; 87205; 96361; 96365; 96375; 96376; G0378

== ENCOUNTER → 2019-01-07 | Outpatient (CLI) | payer MEDICARE, BC, OTHER ==
[~2019-01-07] MED LIST changes: +ACHD5005 PO; +ATEN50TA PO; +DOXY100C2 PO; +IBUP1TAB9 PO; +INSU100I34 SC; +LIRA0.6P3 SC; +LISI-556 PO; +MULT-1067 PO; +TR1C15 TOP
== END ==
LOC: WOUNDCARE 08:07
PROVIDERS: ATTEND Nurse Practitioner
DX: E11.622 Type 2 diabetes mellitus with other skin ulcer (principal); E11.52 Type 2 diabetes mellitus with diabetic peripheral angiopathy with gangrene; L03.116 Cellulitis of left lower limb; L97.222 Non-pressure chronic ulcer of left calf with fat layer exposed; I96 Gangrene, not elsewhere classified
CPT/HCPCS: 99214

== ENCOUNTER → 2019-01-21 | Outpatient (CLI) | payer MEDICARE, BC, OTHER | LOC: WOUNDCARE 10:14 | PROVIDERS: ATTEND Nurse Practitioner | DX: E11.622 Type 2 diabetes mellitus with other skin ulcer (principal); L03.116 Cellulitis of left lower limb; L97.222 Non-pressure chronic ulcer of left calf with fat layer exposed; E11.52 Type 2 diabetes mellitus with diabetic peripheral angiopathy with gangrene | CPT/HCPCS: 11042 ==

== ENCOUNTER → 2019-01-30 | Outpatient (CLI) | payer MEDICARE, BC, OTHER | LOC: WOUNDCARE 11:11 | PROVIDERS: ATTEND Surgery | DX: E11.622 Type 2 diabetes mellitus with other skin ulcer (principal); L03.116 Cellulitis of left lower limb; L97.222 Non-pressure chronic ulcer of left calf with fat layer exposed | CPT/HCPCS: 99213 ==

== ENCOUNTER → 2019-02-25 | Outpatient (CLI) | payer MEDICARE, BC, OTHER ==
[~2019-02-25] MED LIST changes: -METO-370 PO; +METO50TA7 PO
== END ==
LOC: WOUNDCARE 09:49
PROVIDERS: ATTEND Orthopaedic Surgery Hand Surgery
DX: E11.622 Type 2 diabetes mellitus with other skin ulcer (principal); L03.116 Cellulitis of left lower limb
CPT/HCPCS: 99212

== ENCOUNTER 2020-01-15 22:20 | Inpatient (IN) | payer MEDICARE, OTHER ==
[~2020-01-15] VITALS: Ht 170.2 cm; Wt 59.0 kg
[2020-01-15 22:35] LABS: BASOPHILS % (AUTO) 1 % (0-10); EOSINOPHILS # (AUTO) 0.2 10^3/uL (0.0-0.3); EOSINOPHILS % (AUTO) 3 % (0-10); HEMATOCRIT 39 % (35-52); HEMOGLOBIN 12.3 g/dL (11.5-16.0); LYMPHOCYTES # (AUTO) 1.8 10^3/uL (1.0-4.0); LYMPHOCYTES % (AUTO) 26 % (12-44); MEAN CORPUSCULAR HEMOGLOBIN 32 pg (25-34); MEAN CORPUSCULAR HGB CONC 32 g/dL (32-36); MEAN CORPUSCULAR VOLUME 99 fL (80-99); MEAN PLATELET VOLUME 12.7 fL (9.0-12.2); MONOCYTES # (AUTO) 0.6 10^3/uL (0.0-1.0); MONOCYTES % (AUTO) 9 % (0-12); NEUTROPHILS # (AUTO) 4.2 10^3/uL (1.8-7.8); NEUTROPHILS % (AUTO) 61 % (42-75); PLATELET COUNT 240 10^3/uL (130-400)
--- NOTE | 2020-01-15 22:35 | ED Chest Pain ---
General Chief Complaint: Chest Pain Stated Complaint: CHEST PAIN Source: patient Exam Limitations: no limitations History of Present Illness Date Seen by Provider: Jan 15, 2020 Time Seen by Provider: 22:20 Initial Comments Patient presents ER by EMS from home with chief complaint about 30 minutes prior to arrival she started experiencing some right-sided chest pain that was extremely sharp radiating into her right shoulder. EMS arrived he got a normal looking EKG and gave her a dose of aspirin. By the time they arrived to the ER her pain had resolved. No nitroglycerin was given. Patient does not have a history of coronary disease. She denies hypertension, hyperlipidemia. She does have diabetes on Levemir 35 units at night. Patient says she has a brother who in his 40s from heart disease. She denies any fevers chills nausea vomiting diarrhea. She typically has loose stools related to a history of ulcerative colitis and having resections and a colonic pouch placed. She does not have any abdominal discomfort. No dysuria. Primary care by Dr. Diego Mendez. Allergies and Home Medications Allergies Coded Allergies: Sulfa (Sulfonamide Antibiotics) (Verified Allergy, Unknown, 06/11/06) Home Medications Atenolol 50 Mg Tablet, 50 MG PO DAILY, (Reported) Doxycycline Hyclate 100 Mg Capsule, 100 MG PO BID Prescribed by: DIEGO MENDEZ on 01/06/19 1234 Hydrocodone Bit/Acetaminophen 1 Tab Tab, 1 TAB PO Q12H PRN for PAIN-MODERATE (5- 7) Prescribed by: DIEGO MENDEZ on 01/06/19 1234 Insulin Glargine,Hum.rec.anlog 100 Unit/1 Ml Insuln.pen, 20 UNITS SC HS, (Reported) Liraglutide 0.6 Mg/0.1 Ml Pen.injctr, 0.6 MG SC DAILY LAST FILLED 9ML 07-09-18 Prescribed by: DIEGO MENDEZ on 01/06/19 1234 Lisinopril 5 Mg Tablet, 5 MG PO DAILY, (Reported) Multivitamin/Iron/Folic Acid 1 Each Tablet, 1 TAB PO DAILY, (Reported) Patient Home Medication List Home Medication List Reviewed: Yes Review of Systems Review of Systems Constitutional: No chills, No diaphoresis, No fever EENTM: No Blurred Vision, No Double Vision, No Eye Pain Respiratory: Denies Cough, Denies Orthopnea Cardiovascular: Denies Chest Pain, Denies Lightheadedness Gastrointestinal: Denies Constipated, Denies Diarrhea, Denies Nausea Genitourinary: Denies Burning, Denies Discharge Musculoskeletal: No back pain, No joint pain Skin: No pruritus, No rash Psychiatric/Neurological: Denies Headache, Denies Numbness All Other Systems Reviewed Negative Unless Noted: Yes Past Qxpnakv-Hpoahv-Kkcdlp Hx Patient Social History Alcohol Use: Denies Use Recreational Drug Use: No Smoking Status: Never a Smoker 2nd Hand Smoke Exposure: No Recent Hopitalizations: Yes Seasonal Allergies Seasonal Allergies: No Past Medical History Surgeries: Yes (COLECTOMY,APPY,POUCH FROM SM.INTESTINE,ADHESIONS,D&C,STOMA CLOSURE) Respiratory: No Cardiac: No Neurological: No Reproductive Disorders: No Gastrointestinal: Yes (06/11/06 ON 4TH FOR DEHYDRATION & ELEVATED LIVER ENZYMES) Musculoskeletal: No Blood Disorders: No Physical Exam Vital Signs Capillary Refill : Height, Weight, BMI Height: 5'6.00" Weight: 134lbs. 0.5oz. [id number]; 19.60 BMI Method:Stated General Appearance: No Apparent Distress, WD/WN HEENT: Pharynx Normal, Moist Mucous Membranes Neck: Full Range of Motion, Normal Inspection Respiratory: Chest Non Tender, Lungs Clear, Normal Breath Sounds, No Accessory Muscle Use, No Respiratory Distress Cardiovascular: Regular Rate, Rhythm, No Edema, Normal Peripheral Pulses Gastrointestinal: Normal Bowel Sounds, Non Tender, Soft Neurologic/Psychiatric: Alert, Oriented x3, No Motor/Sensory Deficits, Normal Mood/Affect Skin: Normal Color, Warm/Dry Progress/Results/Core Measures Results/Orders Lab Results Laboratory Tests Test 01/15/20 22:28 Range/Units White Blood Count 7.0 4.3-11.0 10^3/uL Red Blood Count 3.91 3.80-5.11 10^6/uL Hemoglobin 12.3 11.5-16.0 g/dL Hematocrit 39 35-52 % Mean Corpuscular Volume 99 80-99 fL Mean Corpuscular Hemoglobin 32 25-34 pg Mean Corpuscular Hemoglobin Concent 32 32-36 g/dL Red Cell Distribution Width 12.9 10.0-14.5 % Platelet Count 240 130-400 10^3/uL Mean Platelet Volume 12.7 H 9.0-12.2 fL Immature Granulocyte % (Auto) 0 % Neutrophils (%) (Auto) 61 42-75 % Lymphocytes (%) (Auto) 26 12-44 % Monocytes (%) (Auto) 9 0-12 % Eosinophils (%) (Auto) 3 0-10 % Basophils (%) (Auto) 1 0-10 % Neutrophils # (Auto) 4.2 1.8-7.8 10^3/uL Lymphocytes # (Auto) 1.8 1.0-4.0 10^3/uL Monocytes # (Auto) 0.6 0.0-1.0 10^3/uL Eosinophils # (Auto) 0.2 0.0-0.3 10^3/uL Basophils # (Auto) 0.0 0.0-0.1 10^3/uL Immature Granulocyte # (Auto) 0.0 0.0-0.1 10^3/uL Prothrombin Time 12.9 12.2-14.7 SEC INR Comment 0.9 0.8-1.4 Activated Partial Thromboplast Time 27 24-35 SEC D-Dimer 0.57 H 0.00-0.49 UG/ML Sodium Level 136 135-145 MMOL/L Potassium Level 6.5 *H 3.6-5.0 MMOL/L Chloride Level 115 H 98-107 MMOL/L Carbon Dioxide Level 10 L 21-32 MMOL/L Anion Gap 11 5-14 MMOL/L Blood Urea Nitrogen 80 H 7-18 MG/DL Creatinine 3.68 H 0.60-1.30 MG/DL Estimat Glomerular Filtration Rate 12 BUN/Creatinine Ratio 22 Glucose Level 295 H 70-105 MG/DL Calcium Level 9.5 8.5-10.1 MG/DL Corrected Calcium 9.4 8.5-10.1 MG/DL Magnesium Level 2.6 H 1.6-2.4 MG/DL Total Bilirubin 0.2 0.1-1.0 MG/DL Aspartate Amino Transf (AST/SGOT) 18 5-34 U/L Alanine Aminotransferase (ALT/SGPT) 23 0-55 U/L Alkaline Phosphatase 100 40-136 U/L Myoglobin 111.1 H 10.0-92.0 NG/ML Troponin I < 0.028 <0.028 NG/ML B-Type Natriuretic Peptide 20.4 <100.0 PG/ML Total Protein 7.5 6.4-8.2 GM/DL Albumin 4.1 3.2-4.5 GM/DL My Orders Orders - GREER REED J Cbc With Automated Diff (01/15/20:) Magnesium (01/15/20:) Chest 1 View, Ap/Pa Only (01/15/20:) Ekg Tracing (01/15/20:) Comprehensive Metabolic Panel (01/15/20:) Myoglobin Serum (01/15/20:) Protime With Inr (01/15/20:) Partial Thromboplastin Time (01/15/20:) O2 (01/15/20:) Monitor-Rhythm Ecg Trace Only (01/15/20:) Lipid Panel (01/16/20 06:00) Ed Iv/Invasive Line Start (01/15/20:) BNP (01/15/20:) Fibrin Degradation Products (01/15/20:) Troponin I (01/15/20:) Ed Iv/Invasive Line Start (01/15/20 23:15) Ns Iv 500 Ml (Sodium Chloride 0.9%) (01/15/20 23:15) Ns Iv 1000 Ml (Sodium Chloride 0.9%) (01/15/20 23:15) Insulin (Regular) Human (Novolin R (Per (01/15/20 23:15) Insulin Determir (Per Unit) (Levemir (Pe (01/15/20 23:15) Calcium Gluconate 10% Inj (Calcium Glu (01/15/20 23:15) Albuterol Pre-Mix Nebs (Rt) (Proventil (01/15/20 23:15) Svn Small Volume Nebulizer (01/15/20 23:15) Medications Given in ED Current Medications Medications Dose Ordered Sig/Josh Route Start Time Stop Time Status Last Admin Dose Admin Calcium Gluconate 4.65 meq/Sodium Chloride 60 ml @ 120 mls/hr ONCE ONCE IV 01/15/20 23:15 01/15/20 23:44 DC 01/15/20 23:48 120 MLS/HR Insulin Detemir 35 unit ONCE ONCE SQ 01/15/20 23:15 01/15/20 23:18 DC 01/15/20 23:53 35 UNIT Insulin Human Regular 10 unit ONCE ONCE SC 01/15/20 23:15 01/15/20 23:18 DC 01/15/20 23:53 10 UNIT Sodium Chloride 500 ml @ 0 mls/hr Q0M ONCE IV 01/15/20 23:15 01/15/20 23:18 DC 01/15/20 23:48 999 MLS/HR Progress Progress Note #1: Time: 22:52 Progress Note Patient is in no acute distress. She has no personal history of coronary disease but she has risk factors including diabetes, age and family history which is dubious at 74 years of age. Aspirin was given. An IV was established. Nitroglycerin will be held and less she has actual pain. Chest pain workup including chest x-ray ordered. Progress Note #2: Time: 23:46 Progress Note Patient is distraught because she wants her bring in a catheter from home to drain her enteric couch. The has been contacted by nursing staff and says he is not going to bring her in tonight. She has accepted to try a 22 or 24 Korean Lopez catheter to drain her pouch. She is also upset that her is trying to kill her. She says she thinks she's putting something in her food may be sodium to make her have an infection in her pouch. She is also afraid he might harm her dog. She says the reason he is trying to kill hers because he wants her to sign away her tension to him instead of her daughter. We told her that she will be safe here in the hospital and will have someone to talk to her in the morning from transition social worker. She is okay with this. Her chest pain has not returned. There is been no changing dysrhythmia on telemetry. For her hyperkalemia were going to give her 3 doses of albuterol back to back followed by 10 units regular insulin and her baseline Levemir. Were going to give her 1500 cc of normal saline. We will check an Accu-Chek half an hour to one hour later. Initial ECG Impression Date: Jan 15, 2020 Initial ECG Impression Time: 22:20 Initial ECG Rate: 86 Initial ECG Rhythm: Normal Sinus Initial ECG Intervals: OR (219) Initial ECG Impression: Normal Initial ECG Comparisson: No Previous ECG Available Comment Sinus dysrhythmia without clinically relevant ST changes. Diagnostic Imaging Diagonstic Imaging: Xray Plain Films/CT/US/NM/MRI: chest Comments Slightly flattened diaphragms with 12 ribs above the diaphragm, mild hyperexpansion or features of chronic obstructive pulmonary disease. No acute cardio pulmonary findings. Reviewed: Reviewed by Me Departure Communication (Admissions) Time/Spoke to Admitting Phy: 23:55 Discussed the case with Dr. Mendez and the paranoid persecution statements which was new to him. He agrees with treatment for hyperkalemia and trending troponins. He will hold off on cardiac consultation until he sees the patient in the morning. Impression Primary Impression: Hyperkalemia Additional Impressions: Acute on chronic renal insufficiency Chest pain Qualified Codes: R07.9 - Chest pain, unspecified Target of (perceived) adverse discrimination and persecution Disposition: ADMITTED INPATIENT Condition: Stable Admissions Decision to Admit Reason: Admit from ER (General) Decision to Admit/Date: Jan 15, 2020 Time/Decision to Admit Time: 23:28 Departure-Patient Inst. Referrals: DIEGO MENDEZ MD (PCP/Family) Primary Care Physician GREER REED Jan 15, 2020 22:35
[2020-01-15 22:57] LABS: INR 0.9 (0.8-1.4); PROTHROMBIN TIME PATIENT 12.9 SEC (12.2-14.7)
[2020-01-15 23:00] LABS: ALBUMIN 4.1 GM/DL (3.2-4.5); BILIRUBIN,TOTAL 0.2 MG/DL (0.1-1.0); CALCIUM 9.5 MG/DL (8.5-10.1); CREATININE SERUM 3.68 MG/DL (0.60-1.30); MAGNESIUM 2.6 MG/DL (1.6-2.4); TOTAL PROTEIN 7.5 GM/DL (6.4-8.2)
--- NOTE | 2020-01-15 23:00 | NUR ---
PT ASKED IF EMS LEFT HER PURSE BECAUSE CATHETERS FOR ABDOMINAL POUCH WERE IN THERE. NO PURSE IN ROOM. EMS CONTACTED AND THEY STATED NO PURSE WAS WITH PT TO ER. PT CONTACTED AND STATED HER PURSE WAS AT HOME AND HE WOULD NOT BRING THE PURSE OR CATHETERS HE HAD SMALL DOGS AT HOME TO WATCH. PT NOTIFIED.
[2020-01-15 23:06] LABS: POTASSIUM 6.5 MMOL/L (3.6-5.0)
[2020-01-15] MEDS ORDERED: NS IV 1000 ML 1,000 ML IV SCH (23:15)
[2020-01-15] MEDS ORDERED: RT-ALBUTEROL SULF 2.5 MG/3 ML PRE-MIX VIAL INH STA (23:15)
[2020-01-15] MEDS ORDERED: inSUlin (REGULAR) HUMAN 1 UNIT/0.01 ML (CHARGE PER UNIT) SC ONE (23:15)
[2020-01-15] MEDS ORDERED: NS IV 500 ML 500 ML IV ONE (23:15)
[2020-01-15] MEDS ORDERED: CALCIUM GLUCONATE 10% INJ 4.65 MEQ in NS (IVPB) 50 ML IV ONE (23:15)
--- NOTE | 2020-01-16 00:30 | NUR ---
DR. REED USED 26FR CATHETER INSERTED INTO ABD STOMA WIT 30CC OF STOOL RETURNED.
--- NOTE | 2020-01-16 01:30 | NUR ---
DAUGHTER ROM PHONE# [phone].
--- NOTE | 2020-01-16 01:30 | NUR ---
DR. REED ATTEMPTED TO CALL PT DAUGHTER ROM TO NOTIFY OF ADMISSION. NO ANSWER.
[2020-01-16 01:55] VITALS: BP 124/58
[2020-01-16] MEDS ORDERED: LORazepam INJ 2 MG/ML (ATIVAN) VIAL IVP PRN (02:15)
[2020-01-16] MEDS ORDERED: ONDANSETRON 4 MG/2 ML (SDV) Z0FRAN IVP PRN (02:15)
[2020-01-16] MEDS ORDERED: morphine INJ 4 MG/ML 1 ML (VIAL/SYRINGE) IV PRN (02:15)
[2020-01-16] MEDS ORDERED: NITROGLYCERIN 0.4 MG SL TABS BTL 25'S SL PRN (02:15)
[2020-01-16] MEDS: ACETAMINOPHEN 325 MG TABLET PO PRN (02:25)
[2020-01-16] MEDS: 1/2 NS IV SOLUTION 1,000 ML IV SCH ×3 (02:25→21:36)
[2020-01-16 04:00] VITALS: BP 108/51
[2020-01-16 05:45] LABS: BASOPHILS % (AUTO) 1 % (0-10); EOSINOPHILS # (AUTO) 0.1 10^3/uL (0.0-0.3); EOSINOPHILS % (AUTO) 2 % (0-10); HEMATOCRIT 35 % (35-52); HEMOGLOBIN 10.9 g/dL (11.5-16.0); LYMPHOCYTES # (AUTO) 2.7 10^3/uL (1.0-4.0); LYMPHOCYTES % (AUTO) 37 % (12-44); MEAN CORPUSCULAR HEMOGLOBIN 31 pg (25-34); MEAN CORPUSCULAR HGB CONC 32 g/dL (32-36); MEAN CORPUSCULAR VOLUME 99 fL (80-99); MONOCYTES # (AUTO) 0.7 10^3/uL (0.0-1.0); MONOCYTES % (AUTO) 10 % (0-12); NEUTROPHILS # (AUTO) 3.7 10^3/uL (1.8-7.8); NEUTROPHILS % (AUTO) 50 % (42-75); PLATELET COUNT 213 10^3/uL (130-400); WHITE BLOOD COUNT 7.2 10^3/uL (4.3-11.0)
[2020-01-16 06:26] LABS: ALBUMIN 3.7 GM/DL (3.2-4.5); POTASSIUM 5.5 MMOL/L (3.6-5.0); SODIUM 137 MMOL/L (135-145)
[2020-01-16 06:28] LABS: CALCIUM 8.7 MG/DL (8.5-10.1); TRIGLYCERIDES 225 MG/DL (<150); VLDL CHOLESTEROL 45 MG/DL (5-40)
[2020-01-16 06:29] LABS: GLUCOSE 68 MG/DL (70-105); TOTAL PROTEIN 6.5 GM/DL (6.4-8.2)
[2020-01-16 06:31] LABS: BILIRUBIN,TOTAL 0.2 MG/DL (0.1-1.0)
[2020-01-16 06:32] LABS: ALKALINE PHOSPHATASE 84 U/L (40-136); GFR ESTIMATED 15
[2020-01-16 06:33] LABS: CHOLESTEROL 202 MG/DL (< 200)
[2020-01-16 06:34] LABS: BUN/CREATININE RATIO 25
[2020-01-16 06:35] LABS: HDL CHOLESTEROL 32 MG/DL (40-60)
[2020-01-16 06:36] LABS: ALANINE AMINOTRANSFERASE 19 U/L (0-55)
[2020-01-16] MEDS: inSUlin ASPART (NovoLOG) 1 UNIT/0.01 ML (CHARGE PER UNIT) SC SCH ×4 (06:36→21:27)
[2020-01-16 07:05] LABS: CHLORIDE 119 MMOL/L (98-107)
--- NOTE | 2020-01-16 07:09 | Diagnostic Imaging Report ---
EXAMINATION: Chest radiograph, portable AP view. DATE: 01/15/2020 10:57 PM INDICATION: 74-year-old female, chest pain. COMPARISON: Left rib radiographs June 17, 2010. FINDINGS: Heart size and mediastinal contours are unremarkable. There is no identified pneumothorax. There is no large pleural effusion. There is no identified focal airspace consolidation. IMPRESSION: No identified acute cardiopulmonary abnormality. Dictated by: Dictated on workstation # [id number]
[2020-01-16 07:10] LABS: CREATININE SERUM 3.05 MG/DL (0.60-1.30)
[2020-01-16 07:14] LABS: CARBON DIOXIDE 8 MMOL/L (21-32)
[2020-01-16 08:17] VITALS: BP 89/50
--- NOTE | 2020-01-16 08:19 | History & Physical ---
History of Present Illness History of Present Illness Reason for visit/HPI 74 yo F admitted last night with chest pain found to have critical high potassium level.- EKG per report normal. She also has acute on chronic kidney failure. For her high potassium level she was given calcium gluconate to stabilize cardiac myocytes- as well as albuterol, insulin. Patient's potassium came down from 6.5 to 5.5. Patient also has "brittle diabetes" fluctuates with highs and lows in part due to inconsistent vs incorrect use of insulin. She also has dementia which I believe is the cause of her persecutory paranoia; which now that I think about it she had similar issues of claiming her wanted to kill her last year when she was ill with a leg wound and acute on chronic kidney disease. She also has an ostomy (from previous ulcerative colitis surgeries) and chronic diarrhea. Risk factors for cardiac concern- diabetes, kidney failure, age, family history. Potassium will go down with improvement in her blood sugar and nonanionic gap metabolic acidosis due to worsening kidney function. reviewed pmh, psh, sh. Date of Admission Jan 16, 2020 at 00:05 Date Seen by a Provider: Jan 16, 2020 Time Seen by a Provider: 08:22 I consulted on this patient on 01/16/20 08:15 Attending Physician Diego Mendez MD Admitting Physician Diego Mendez MD Consult Allergies and Home Medications Allergies Coded Allergies: Sulfa (Sulfonamide Antibiotics) (Verified Allergy, Unknown, 06/11/06) Home Medications Atenolol 50 Mg Tablet, 50 MG PO DAILY, (Reported) Gabapentin 100 Mg Capsule, 100 MG PO DAILY PRN for PAIN-BREAKTHROUGH, (Reported) Insulin Detemir 100 Unit/1 Ml Insuln.pen, 46 UNITS SC DAILY, (Reported) Lisinopril 10 Mg Tablet, 10 MG PO DAILY, (Reported) LAST FILLED 09-09-2019 #90/90 DAY SUPPLY Multivitamin/Iron/Folic Acid 1 Each Tablet, 1 TAB PO DAILY, (Reported) Patient Home Medication List Home Medication List Reviewed: Yes Past Xgtgocb-Chsqdc-Ghuykm Hx Patient Social History Alcohol Use: Denies Use Recreational Drug Use: No Smoking Status: Never a Smoker 2nd Hand Smoke Exposure: No Recent Foreign Travel: No Contact w/other who traveled: No Recent Hopitalizations: Yes Recent Infectious Disease Expo: No Seasonal Allergies Seasonal Allergies: No Surgeries Yes (COLECTOMY,APPY,POUCH FROM SM.INTESTINE,ADHESIONS,D&C,STOMA CLOSURE) Respiratory No Cardiovascular No Neurological No Reproductive System Hx Reproductive Disorders: No Gastrointestinal Yes (06/11/06 ON 4TH FOR DEHYDRATION & ELEVATED LIVER ENZYMES) Musculoskeletal No Blood Transfusions History of Blood Disorders: No Review of Systems Review of Systems General: No Chills, No Night Sweats HEENT: No Head Aches Pulmonary: No Dyspnea, No Cough Cardiovascular: No: Chest Pain, Palpitations Gastrointestinal: Diarrhea (out of her ostomy); No: Nausea, Vomiting Genitourinary: No Dysuria, No Frequency Neurological: Weakness All Other Systems Reviewed All Other Systems Reviewed: Yes Physical Exam Vital Signs Vital Signs - First Documented 01/15/20 01/16/20 22:20 01:35 Temp 37.0 Pulse 76 Resp 16 B/P (MAP) 127/80 (96) Pulse Ox 99 O2 Delivery Room Air Capillary Refill : Less Than 3 Seconds Height, Weight, BMI Height: 5'6.00" Weight: 134lbs. 0.5oz. 60.389508mp; 20.36 BMI Method:Stated General Appearance: No Apparent Distress HEENT: PERRL/EOMI Neck: Non Tender, Supple Respiratory: Chest Non Tender, Lungs Clear, Normal Breath Sounds, No Accessory Muscle Use, No Respiratory Distress Cardiovascular: Regular Rate, Rhythm Gastrointestinal: Non Tender, Soft Rectal: Deferred Back: Normal Inspection Neurologic/Psychiatric: Alert; No Oriented x3 Skin: Normal Color, Warm/Dry Assessment/Plan Assessment/Plan Admission Dx chest pain hyperkalemia acute on chronic kidney failure. Admission Status: Inpatient Order (span 2 midnights) Reason for Inpatient Admission: Patient presented with chest pain found to be in acute on chronic kidney failure with electrolyte derangement. Will require 2 midnights to stabilize her. Assessment and Plan admitted 01/15/20 -01/16/20- continue driving potassium level down- with albuterol, insulin. will have to monitor blood sugar. Also will give kayexelate one time to help get rid of the potassium. As well as bicarb iv x1 to drive potassium back into the cells and improve her low CO2 level. -continue ivf for all of her issues- to improve her kidney failure, dilute potassium, rehydrate. -Troponin below threshold x2- does not appear she has a cardiac issue at this time- will monitor- correcting her potassium level will help. -decreased her levemir to 20units since she had hypoglycemia this AM (due to 35units). -will plan on discharging patient on bicarb tablets as it has been shown to help slow the progression of CKD. -Also checking urinanalysis to make sure we are not missing a UTI as the cause of her confusion. Dispo: could potentially d/c to home tomorrow if Cr is down closer to 2, potassium is normal, and her mentation has improved. Problems: (1) Acute on chronic renal failure Assessment & Plan: baseline Cr 1.8 -hydration, diabetes management is hernandez. -Avoid nephrotoxic agents. (2) Hyperkalemia (3) Diabetes mellitus type II, uncontrolled (4) HTN (hypertension) (5) History of ulcerative colitis Assessment & Plan: -ostomy functioning (6) Chest pain Qualifiers: Qualified Codes: R07.9 - Chest pain, unspecified (7) Target of (perceived) adverse discrimination and persecution Assessment & Plan: related to acute illness and dementia. -case management consulted for investigation. (8) Normal anion gap metabolic acidosis Assessment & Plan: due to progression of her chronic kidney disease- poor prognosis over next 2 years. Clinical Quality Measures AMI/AHF: ASA po Prior to arrival: Yes (324MG ASA PO VIA EMS) DVT/VTE Risk/Contraindication: Risk Factor Score Per Nursin RFS Level Per Nursing on Admit: 3=High DIEGO MENDEZ MD Jan 16, 2020 08:19
[2020-01-16] MEDS ORDERED: SODIUM BICARB 8.4% 50 MEQ/50 ML VIAL IV NR (08:44)
[2020-01-16] MEDS ORDERED: RT-ALBUTEROL/IPRATROPIUM 3 ML (DUONEB) VIAL INH NR (08:45)
[2020-01-16] MEDS ORDERED: SOD POLYSTERENE 15 GM/60 ML (KAYEXALATE) UNIT DOSE PO NR (08:45)
--- NOTE | 2020-01-16 08:56 | NUR ---
DR. LE VERBALLY CLARIFIED MEDICATION ORDER. GIVE THE SODIUM BICARB. IV ORDER THIS AM, BUT HOLD THE 0900 DOSE OF SODIUM BICARB. PO, RECHECK CARBON DIOXIDE LEVEL AT 1200, GIVE THE SODIUM BICARB. PO AT 1300.
[2020-01-16] MEDS: SODIUM BICARBONATE 650 MG TABLET (NON-FORMULARY) PO SCH ×3 (08:58→21:26)
[2020-01-16] MEDS: ASPIRIN E.C. 81 MG (ECOTRIN) TAB PO SCH (09:15)
--- NOTE | 2020-01-16 09:22 | NUR ---
THIS RN NOTIFIED RT ANUSHA FOR NEW BREATHING TX ORDER FROM DR. MENDEZ AT THIS TIME.
--- NOTE | 2020-01-16 09:32 | NUR ---
NOTIFIED DR. MENDEZ OF LATEST BLOOD PRESSURE BEING 89/50 PULSE OF 59. ORDERS TO MONITOR PATIENT AT THIS TIME RECEIVED.
[2020-01-16 10:24] LABS: POTASSIUM 4.9 MMOL/L (3.6-5.0)
[2020-01-16 10:25] LABS: CALCIUM 8.1 MG/DL (8.5-10.1)
[2020-01-16 10:30] LABS: CREATININE SERUM 3.04 MG/DL (0.60-1.30)
--- NOTE | 2020-01-16 11:33 | NUR ---
1041- THE PT'S DAUGHTER, ROM, CONTACTED THIS RN WITH CONCERNS WITH PT'S INCREASED PARANOIA. ROM WANTED TO TALK WITH PT'S DOCTOR TO CLARIFY SOME CONCERNS AND POTENTIALLY SEEK MEDICAL TREATMENT. THIS RN INFORMED ROM THAT I WOULD CONTACT DR. MENDEZ WITH HER CONTACT INFORMATION AND DR. MENDEZ CALL HER. 1103- THIS RN CONTACTE DR. MENDEZ WITH DAUGHTERS CONCERNS AND THE REQUEST THAT ROM WOULD LIKE TO BE CONTACTED. DR. LE SAID HE WOULD CALL HER AND GAVE AND ORDER TO COLLECT AN UA IF WE DO NOT ALREADY HAVE ONE.
[2020-01-16 12:00] VITALS: BP 112/53
[2020-01-16] MEDS ORDERED: GABA-486 PO (14:12)
[2020-01-16] MEDS ORDERED: INSU100I29 SC (14:12)
[2020-01-16] MEDS ORDERED: LISI10TA2 PO (14:12)
--- NOTE | 2020-01-16 14:14 | NUR ---
SPOKE WITH THE PT, ALSO CALLED PTS DAUGHTER (ROM), WENT THRU THE EXT MED HISTORY AND CALLED [facility] TO COMPLETE THE MED REC PT WAS NOT ABLE TO GIVE ME ANY INFORMATION REGARDING HER MEDICATIONS, THEREFORE I CALLED ROM WHO KNEW THE NAMES OF HER MOTHERS MEDS BUT NOT HOW/WHEN SHE TAKES EACH. ROM DID LET ME KNOW THAT SHE HAD TALKED WITH HER STEPDAD (PTS ) AND HE TOLD HER THE NAMES OF PTS MEDS BUT WASNT SURE HOW/WHEN SHE TAKES THEM. HE ALSO LET ROM KNOW THAT EACH MED BOTTLE STILL HAD PILLS IN THEM. DUE TO THE REASONS ABOVE I HAVE ENTERED THE MED REC USING THE EXT MED HISTORY AND INFORMATION FROM [facility]. LISINOPRIL 10MG WAS LAST FILLED 09-09-2019 #90/90DS AND THE PAST DUE FILL DATE IS INCLUDED ON THE MED REC ROM WAS ALSO CONCERNED THAT HER MOTHER MAY HAVE TAKEN MEDICATIONS THAT ARENT PRESCRIBED TO HER, BUT WHEN I BROUGHT UP TAKING MEDICATIONS (EITHER HERS OR OTHERS) SHE WAS NOT ABLE TO GIVE ME ANY INFORMATION
--- NOTE | 2020-01-16 14:22 | NUR ---
RD ASSESSMENT PMHx: dementia; DM; CKD; colitis; PT INTERACTION: Pt was awake and pleasant during nutrition assessment. Note pt has dementia, per chart review. Pt states current appetite is not good, though it was good prior to admit. Note PO intake 75% x1meal, per Otto RN. Otto also states pt is not eating at home per pt's daughter. Pt states following a regular diet at home, and has no issues with chewing/swallowing food. Pt states no recent issues with n/v/c/d. Note pt has ostomy, per chart review. Note last BM was 01/15, and pt not currently on bowel regimen per chart review. Pt states recent wt changes as "going up and down." Note unable to determine recent wt hx, per chart review. Pt states current DM management is good. Note unable to determine recent HbA1c, per chart review. ABNORMAL NUTRITION-RELATED LAB VALUES LOW: HDL 32; glu 68; HIGH: K 5.5; Cl 119; BUN 76; cr 3.05; TF 225; chol 202; LDL 132; Est. kcal needs: 7535-2067 kcal | 30-35 kcal/kg Est. Pro needs: 47-59 g Pro | 0.8-1.0 g Pro/kg PES STATEMENT: Inadequate oral intake (NI-2.1) related to loss of appetite as evidenced by pt interview and communication with RN. INTERVENTION: Continue with current diet order of CHO 60g/m 3snack diet. Pt may benefit from nutrition supplementation if PO intake declines. Encouraged pt to eat when able. Did not offer diet education on DM management, d/t dementia. Will continue to follow and reassess as pt needs, intake, and status change. Margarita Miller, MS RD LD [phone] cell
--- NOTE | 2020-01-16 14:53 | NUR ---
CM/MARTINEZ visited with patient for social service consult. Plan: AGUILAR/MARTINEZ spoke with the Physician who reports the patient could likely discharge home tomorrow 01/16. The patient was lying in bed at time of visit. She was alert and oriented x1. The patient was only oriented to self. She was pleasantly confused and willing to talk. Home: The patient lives at home with her . CM/SS contacted the patient's to get additional information. He stated that the patient has become increasingly weaker at home. He reports that she fatigues easily and he tries to walk by her when she is walking to prevent any falls. The patient's reports that within the last two week's she has become agitated (cussing him out) and paranoid. He stated that Arti mentioned a Schizophrenia diagnosis along with depression/anxiety. He is unsure if she takes or has been taking medications. : At time of admission, she had claimed her was trying to "kill" and "poison" her. The patient reported that she does not remember making those claims at the time of this interview. She denies claims. The patient kept answering questions by talking about her dogs as if she didn't understand the question. The patient believed that she is here because her dog was running out in the road. AGUILAR/MARTINEZ spoke with physician: He reports the patient will likely discharge tomorrow if able. AGUILAR/SS asked if [facility] would be an option for discharge. He stated that when she becomes sick she does usually become confused and it resolves some. CM/SS inquired about the need for home health. The physician does not believe that is needed at this time. CM/SS contacted to inform him of possible discharge tomorrow.
[2020-01-16 15:50] VITALS: BP 99/50
[2020-01-17] VITALS: BP 124/57
--- NOTE | 2020-01-17 | NUR ---
DR MENDEZ CALLED A GIVE ORDER T STRAIGHT CATH PT FOR UA. PT STRAIGHT CATH PER [facility]. STERILE TECHNIC FOLLOW. UA COLLECT. PT TOLERATED WELL
[2020-01-17 00:27] LABS: BILIRUBIN,URINE NEGATIVE (NEGATIVE); CLARITY,URINE CLEAR; COLOR,URINE YELLOW; GLUCOSE, URINE (UA) TRACE (NEGATIVE); KETONES,URINE NEGATIVE (NEGATIVE); LEUKOCYTE ESTERASE ,URINE NEGATIVE (NEGATIVE); NITRITE,URINE NEGATIVE (NEGATIVE); PH,URINE 5.5 (5-9); PROTEIN,URINE TRACE (NEGATIVE)
[2020-01-17 00:52] LABS: BACTERIA,URINE NEGATIVE /HPF; GRANULAR CASTS,URINE RARE /LPF; RBC,URINE 0-2 /HPF; SQUAMOUS EPITHELIAL CELL,UR RARE /HPF
[2020-01-17] MEDS: inSUlin ASPART (NovoLOG) 1 UNIT/0.01 ML (CHARGE PER UNIT) SC SCH ×4 (06:25→20:20)
[2020-01-17 06:49] LABS: POTASSIUM 5.3 MMOL/L (3.6-5.0)
[2020-01-17 06:50] LABS: CALCIUM 7.8 MG/DL (8.5-10.1)
[2020-01-17 06:55] LABS: CREATININE SERUM 2.64 MG/DL (0.60-1.30)
[2020-01-17] MEDS: 1/2 NS IV SOLUTION 1,000 ML IV SCH ×2 (07:51→18:29)
[2020-01-17] MEDS: ASPIRIN E.C. 81 MG (ECOTRIN) TAB PO SCH (07:59)
[2020-01-17] MEDS: SODIUM BICARBONATE 650 MG TABLET (NON-FORMULARY) PO SCH ×3 (07:59→21:10)
[2020-01-17 08:00] VITALS: BP 132/62
--- NOTE | 2020-01-17 09:11 | Progress Note ---
Subjective Subjective/Events-last exam No events overnight. Feeling better and would like to go home. Eating but not much. Tolerating liquids well. Objective Exam Last Set of Vital Signs Vital Signs Date Time Temp Pulse Resp B/P (MAP) Pulse Ox O2 Delivery O2 Flow Rate FiO2 01/17/20 07:00 85 01/17/20 00:00 35.6 18 124/57 (79) 98 Room Air Capillary Refill : Less Than 3 Seconds I&O Intake and Output 01/17/20 00:00 Intake Total 2600 ml Output Total 450 ml Balance 2150 ml Intake Oral 1040 ml IV Total 1560 ml Output Urine Total 450 ml # Voids 4 # Bowel Movements 4 Daily Weight Change Unsure Unsure/Unresponsive General: Alert, Oriented X3 HEENT: Atraumatic Lungs: Clear to Auscultation Heart: Regular Rate Psych/Mental Status: Mental Status NL, Mood NL Results/Procedures Lab Laboratory Tests 01/16/20 09:55: Sodium Level 136, Potassium Level 4.9, Chloride Level 116H, Carbon Dioxide Level 10L, Anion Gap 10, Blood Urea Nitrogen 72H, Creatinine 3.04H, Estimat Glomerular Filtration Rate 15, BUN/Creatinine Ratio 24, Glucose Level 241H, Calcium Level 8.1L, Troponin I < 0.028 01/16/20 11:26: Glucometer 280H 01/16/20 15:53: Glucometer 231H 01/16/20 21:03: Glucometer 228H 01/17/20 00:15: Urine Color YELLOW, Urine Clarity CLEAR, Urine pH 5.5, Urine Specific [place] 1.015L, Urine Protein TRACEH, Urine Glucose (UA) TRACEH, Urine Ketones NEGATIVE, Urine Nitrite NEGATIVE, Urine Bilirubin NEGATIVE, Urine Urobilinogen 0.2, Urine Leukocyte Esterase NEGATIVE, Urine RBC (Auto) TRACE-I, Urine RBC 0-2, Urine WBC NONE, Urine Squamous Epithelial Cells RARE, Urine Crystals NONE, Urine Bacteria NEGATIVE, Urine Casts PRESENT, Urine Granular Casts RARE, Urine Mucus NEGATIVE, Urine Culture Indicated NO 01/17/20 05:06: Glucometer 166H 01/17/20 06:05: Sodium Level 139, Potassium Level 5.3H, Chloride Level 118H, Carbon Dioxide Level 10L, Anion Gap 11, Blood Urea Nitrogen 60H, Creatinine 2.64#H, Estimat Glomerular Filtration Rate 18, BUN/Creatinine Ratio 23, Glucose Level 151H, Calcium Level 7.8L Assessment/Plan Assessment/Plan Admission Dx Acute on chronic renal failure. Hyperkalemia. Admission Status: Inpatient Order (span 2 midnights) (1) Acute on chronic renal failure Status: Acute Assessment & Plan: Improving with fluids. Aiming for around 2. Improving from admission from 3.5 to 2.6 today. Baseline around 1.8. Will continue IVF. (2) Diabetes mellitus type II, uncontrolled Status: Chronic Assessment & Plan: Fasting glucose improved from yesterday. Home dose of levemir 45 per patient. Decreased to 20 yesterday due to fasting of 63. Today improved and will hopefully eat better. Increase to 25 u qHS to help with potassium. (3) Hyperkalemia Status: Acute Assessment & Plan: Improving. Will continue to improve with increasing insuli n. Recheck in AM. (4) Chest pain Status: Resolved Qualifiers: Qualified Codes: R07.9 - Chest pain, unspecified Clinical Quality Measures AMI/AHF: ASA po Prior to arrival: Yes (324MG ASA PO VIA EMS) DVT/VTE Risk/Contraindication: Risk Factor Score Per Nursin RFS Level Per Nursing on Admit: 3=High DON GORDON MD Jan 17, 2020 09:11
--- NOTE | 2020-01-17 10:10 | NUR ---
PHONED DR. GORDON TO SEE ABOUT DIET SINCE NPO IN SYSTEM. DR GORDON GAVE TELEPHONE ORDER FOR 60 CHO WITH [facility]
--- NOTE | 2020-01-17 10:20 | NUR ---
PATIENT KEEPS CLIMBING OUT OF BED AND HAS TO BE REORIENTED EACH TIME. PATIENT HAS TURNED OFF BED ALARM AND WAS FOUND IN HALLWAY. THIS RN INFORMED BY ORLIN CERRATO. THIS RN REORIENTED PATIENT AND AND BACK TO BED. THIS RN REPORTS AT THIS TIME THAT NO TELE SITTER IS AVAILABLE TO PLACE WITH SITTER AND PATIENT WAS CONFUSED THAT [facility]ANK WAS MEETING HER HERE FOR LUNCH AND SHE WAS WANTING HER DAUGHTER PHONED TO PICK HER UP. THIS RN PHONED DAUGHTER FOR PATIENT AND SPOKE WITH YESIKA WHO SAID HER MOTHER HAD BEEN OFF HER ANTI PSYCHOTICS FOR MANY YEARS BUT UNAWARE OF WHEN SHE QUITE THEM SAID SHE THOUGHT SHE TOOK RISPERIDONE. AND INFORMED HAS TRIED TO SPEAK WITH HER DRVioleta ABOUT THIS BUT UNABLE TO SPEAK WITH THEM. DR. GORDON GAVE VERBAL ORDER FOR RISPERIDONE MG BID Addendum: 01/17/20 at 1819 by DON SEXTON RN RISPERDONE 0.25MG BID
[2020-01-17] MEDS: risperiDONE 0.25 MG (RisperDAL) TAB PO SCH ×2 (11:00→21:10)
[2020-01-17] MEDS: ACETAMINOPHEN 325 MG TABLET PO PRN ×2 (11:00→22:49)
--- NOTE | 2020-01-17 13:30 | NUR ---
PATIENTS DAUGHTER CARLY PHONED TO SPEAK WITH THIS RN ABOUT MOTHER AND THAT SHE WOULD LIKE A DRVioleta TO CALL HER FOR UPDATE AND SO THAT SHE CAN EXPLAIN WHAT'S BEEN GOING ON WITH PATIENT. DAUGHTER STATED THAT SHE HAS POA OVER PATIENT AND THIS RN INFORMED AND GAVE MED/SURG FAX NUMBER TO SEND TO. DAUGHTER PHONED LATER AND FAX HADN'T CAME THROUGH.
--- NOTE | 2020-01-17 14:30 | NUR ---
CARLY PHONED THIS RN AND ASKED IF I COULD HAVE PHONE HER. I INFORMED WAS GONE FOR THE DAY AND THAT I COULD ASK HER TO PHONE HER TOMORROW ABOUT PATIENT'S CONDITION AND TO HAVE A PLAN DUE TO HER MOTHER BEING OFF HER MEDICATIONS FOR A WHILE. THIS RN INFORMED WE COULD ASK ABOUT GET A PSYCH CONSULT BUT THAT WOULDN'T HAPPEN UNTIL DURING THE WEEKDAY. I INFORMED THAT IF I DIDN'T HAVE HER MOTHER A PATIENT I WOULD MAKE SURE AND RELAY MESSAGE ON TO DR. GORDON TOMORROW.
[2020-01-17 16:00] VITALS: BP 131/58
[2020-01-17 23:32] VITALS: BP 148/71
[2020-01-18] MEDS: 1/2 NS IV SOLUTION 1,000 ML IV SCH ×3 (05:16→21:20)
--- NOTE | 2020-01-18 05:50 | NUR ---
PT BED ALARM SOUNDED AT THIS TIME, THIS NURSE HEARD PT YELL, WENT IN, AND PT STATES "I DO NOT LIKE TO BE BOSSED AROUND, I CAN HELP MYSELF, I HAVE BEEN FOR A LONG TIME, I WILL NOT BE BOSSED AROUND." THIS NURSE EXPLAINS TO PT THAT SHE IS IN A HOSPITAL AND WE ARE HERE TO HELP HER TO MAKE SURE SHE DOESNT FALL OR GET HURT. PT STANDS UP AND WANTS TO GO TO THE "KITCHEN", GESTURING TO THE HALLWAY, THIS NURSE EXPLAINS THAT SHE NEEDS A MASK TO GO IN THE HALLS, THAT I CAN HELP HER GET ONE, SHE SAYS "I DONT NEED YOUR HELP, BLANK OR CARLY CAN HELP", IT WAS EXPLAINED TO PT THAT THEY ARE NOT HERE, WE ARE IN THE HOSPITAL. PT GETTING AGITATED, AND ONLY WANTS TO TALK TO HER DAUGHTER ROM OR HER BLANK. THIS NURSE CALLED CARLY, NO ONE ANSWERED, A VOICE MESSAGE WAS LEFT. THIS NURSE EXPLAINED TO PT THAT A VOICE MESSAGE WAS LEFT FOR CARLY. PT GAVE THIS NURSE HER 'S NUMBER, BUT IT DID NOT GO THROUGH, TRIED ANOTHER NUMBER AND GOT AHOLD OF BLANK, PT TALKED TO HIM FOR 20 MINUTES, THIS NURSE SPOKE TO HIM TO EXPLAIN THAT PT WAS REQUESTING TO SPEAK TO HIM, GAVE HIM PT'S ROOM NUMBER SO HE CAN CALL HER NEEDED.
[2020-01-18] MEDS: inSUlin ASPART (NovoLOG) 1 UNIT/0.01 ML (CHARGE PER UNIT) SC SCH ×4 (06:42→21:03)
[2020-01-18 07:49] VITALS: BP 175/76
[2020-01-18] MEDS: ASPIRIN E.C. 81 MG (ECOTRIN) TAB PO SCH (08:29)
[2020-01-18] MEDS: SODIUM BICARBONATE 650 MG TABLET (NON-FORMULARY) PO SCH ×3 (08:29→21:02)
[2020-01-18] MEDS: risperiDONE 0.25 MG (RisperDAL) TAB PO SCH ×2 (08:29→21:03)
[2020-01-18] MEDS ORDERED: INSU100I29 SC (09:00)
[2020-01-18] MEDS ORDERED: NF-SODBICA PO (09:00)
[2020-01-18] MEDS ORDERED: RISP0.253 PO (09:00)
--- NOTE | 2020-01-18 09:27 | NUR ---
INFORMED DR. GORDON THAT PATIENTS DAUGHTER CARLY WOULD LIKE UPDATE. DR. GORDON INFORMED WOULD WHEN SHE GETS WITH THAT PATIENT. Addendum: 01/18/20 at 7817 by DON SEXTON RN YOMI NGUYỄN PHONED CARLY AND INFORMED STATED SHE WOULD PHONE HER WITH UPDATE
[2020-01-18 10:19] LABS: CALCIUM 8.5 MG/DL (8.5-10.1); CREATININE SERUM 2.45 MG/DL (0.60-1.30); POTASSIUM 4.8 MMOL/L (3.6-5.0)
[2020-01-18] MEDS ORDERED: risperiDONE 0.25 MG (RisperDAL) TAB PO ONE (11:15)
--- NOTE | 2020-01-18 11:19 | Progress Note ---
Subjective Subjective/Events-last exam Overnight was difficult with nursing staff having to redirect patient. The patient is calling her daughter and her daughter would like a call today. She was started on risperidal yesterday and has done slightly better today. Objective Exam Last Set of Vital Signs Vital Signs Date Time Temp Pulse Resp B/P (MAP) Pulse Ox O2 Delivery O2 Flow Rate FiO2 01/18/20 08:00 Room Air 01/18/20 07:49 36.8 88 20 175/76 (109) 99 Capillary Refill : Less Than 3 Seconds I&O Intake and Output 01/18/20 00:00 Intake Total 4125 ml Output Total 1250 ml Balance 2875 ml Intake Oral 2125 ml IV Total 2000 ml Output Urine Total 1250 ml # Voids 5 # Bowel Movements 6 General: Alert, Oriented X3 HEENT: Atraumatic Lungs: Clear to Auscultation Heart: Regular Rate Abdomen: Normal Bowel Sounds Psych/Mental Status: Other (anxious; alert; ) Results/Procedures Lab Laboratory Tests 01/17/20 15:53: Glucometer 313H 01/17/20 16:50: Glucometer 348H 01/17/20 20:17: Glucometer 140H 01/18/20 06:32: Glucometer 124H 01/18/20 09:53: Sodium Level 144, Potassium Level 4.8, Chloride Level 117H, Carbon Dioxide Level 13L, Anion Gap 14, Blood Urea Nitrogen 46H, Creatinine 2.45H, Estimat Glomerular Filtration Rate 19, BUN/Creatinine Ratio 19, Glucose Level 191H, Calcium Level 8.5 Assessment/Plan Assessment/Plan (1) Acute on chronic renal failure Status: Acute Assessment & Plan: 01/16-Improving with fluids. Aiming for around 2. Improving from admission from 3.5 to 2.6 today. Baseline around 1.8. Will continue IVF. 01/17- Improved, but still above 2. Not sure if she is leveling out to new baseline. Potassium improved. Will continue IV hydration another night. (2) Diabetes mellitus type II, uncontrolled Status: Chronic Assessment & Plan: 01/16-Fasting glucose improved from yesterday. Home dose of levemir 45 per patient. Decreased to 20 yesterday due to fasting of 63. Today improved and will hopefully eat better. Increase to 25 u qHS to help with potassium. 12/6- Controlled. Keep on current dose. (3) Hyperkalemia Status: Acute Assessment & Plan: 01/16-Improving. Will continue to improve with increasing insulin. Recheck in AM. 01/17- Improved. (4) Chest pain Status: Resolved Qualifiers: Qualified Codes: R07.9 - Chest pain, unspecified (5) Paranoid schizophrenia Assessment & Plan: Called and spoke to daughter per her request. Risperidal started yesterday with slight improvement. Per daughter diagnosed with paranoid schizophrenia in 2010 and has stopped medications since 2012. Schizophrenia worsening with paranoid delusions per her . She would like us to consider Invega injection as mother refuses to take medications for sc hizophrenia. Will increase risperidal dose today and inform Dr. Chung tomorrow. Clinical Quality Measures AMI/AHF: ASA po Prior to arrival: Yes (324MG ASA PO VIA EMS) DVT/VTE Risk/Contraindication: Risk Factor Score Per Nursin RFS Level Per Nursing on Admit: 3=High DON GORDON MD Jan 18, 2020 11:19
[2020-01-18] MEDS: ACETAMINOPHEN 325 MG TABLET PO PRN (12:50)
[2020-01-18 15:17] VITALS: BP 145/63
[2020-01-18] MEDS ORDERED: LORATADINE (CLARITIN) 10 MG TAB ONE (22:14)
[2020-01-18 23:26] VITALS: BP 150/68
[2020-01-19] MEDS: inSUlin ASPART (NovoLOG) 1 UNIT/0.01 ML (CHARGE PER UNIT) SC SCH (06:42)
[2020-01-19 07:48] LABS: BASOPHILS % (AUTO) 0 % (0-10); EOSINOPHILS # (AUTO) 0.1 10^3/uL (0.0-0.3); EOSINOPHILS % (AUTO) 2 % (0-10); HEMATOCRIT 29 % (35-52); HEMOGLOBIN 9.3 g/dL (11.5-16.0); LYMPHOCYTES # (AUTO) 1.3 10^3/uL (1.0-4.0); LYMPHOCYTES % (AUTO) 26 % (12-44); MEAN CORPUSCULAR HEMOGLOBIN 31 pg (25-34); MEAN CORPUSCULAR HGB CONC 33 g/dL (32-36); MEAN CORPUSCULAR VOLUME 97 fL (80-99); MEAN PLATELET VOLUME 12.4 fL (9.0-12.2); MONOCYTES # (AUTO) 0.4 10^3/uL (0.0-1.0); MONOCYTES % (AUTO) 9 % (0-12); NEUTROPHILS # (AUTO) 3.1 10^3/uL (1.8-7.8); NEUTROPHILS % (AUTO) 62 % (42-75); PLATELET COUNT 149 10^3/uL (130-400); WHITE BLOOD COUNT 4.9 10^3/uL (4.3-11.0)
[2020-01-19 07:54] LABS: SMEAR SCAN COMMENT YES
[2020-01-19 08:08] VITALS: BP 142/74
[2020-01-19] MEDS: SODIUM BICARBONATE 650 MG TABLET (NON-FORMULARY) PO SCH (08:33)
[2020-01-19] MEDS: ASPIRIN E.C. 81 MG (ECOTRIN) TAB PO SCH (08:33)
[2020-01-19] MEDS: risperiDONE 0.25 MG (RisperDAL) TAB PO SCH (08:33)
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
[2020-01-19 09:09] LABS: POTASSIUM 4.5 MMOL/L (3.6-5.0)
[2020-01-19 09:11] LABS: CALCIUM 8.3 MG/DL (8.5-10.1)
[2020-01-19 09:15] LABS: CREATININE SERUM 2.38 MG/DL (0.60-1.30)
--- NOTE | 2020-01-19 09:56 | NUR ---
CM/SS finalized discharge. Plan: Patient will return home today 01/18. No needs. The patient's is currently on his way to the hospital to pick the patient up. The patient was in the bathroom getting ready at time of visit. She was alert and more oriented than the last visit on Sunday. The patient reports that she was confused the night she came in and remembers waking up and not knowing where she was. The patient reports she also kept asking the same questions to reassure herself. Today, the patient knew where she was and the reason. She was telling stories about her adult children and grandchildren. She reports feeling better today and ready to return home. She denied any further questions or needs at this time.
[2020-01-19] MEDS: 1/2 NS IV SOLUTION 1,000 ML IV SCH (10:21)
[2020-01-19 10:58] VITALS: BP 142/74
[2020-01-19] MEDS ORDERED: LORATADINE (CLARITIN) 10 MG TAB PO SCH (21:00)
== END 2020-01-19 11:02 | disposition home or self-care (01) | DRG 683 ==
LOC: EDUNIT# 22:20 → ER 22:22 → 4TH 01-16 00:05
PROVIDERS: ADMIT Family Medicine; ATTEND Family Medicine
DX: N17.9 Acute kidney failure, unspecified (principal); E87.2 Acidosis; F20.0 Paranoid schizophrenia; N18.9 Chronic kidney disease, unspecified; E87.5 Hyperkalemia; E11.65 Type 2 diabetes mellitus with hyperglycemia; E11.649 Type 2 diabetes mellitus with hypoglycemia without coma; Z79.4 Long term (current) use of insulin; K52.89 Other specified noninfective gastroenteritis and colitis; Z93.3 Colostomy status
CPT/HCPCS: 36415; 71045; 80048; 80053; 80061; 81000; 82962; 83036; 83735; 83874; 83880; 84484; 85025; 85379; 85610; 85730; 93005; 93041; 94640

== ENCOUNTER 2020-03-12 14:39 | Emergency (ER) | payer MEDICARE, OTHER ==
[~2020-03-12] VITALS: Ht 177 cm; Wt 49.0 kg
[~2020-03-12 14:39] MED LIST changes: +GABA-486 PO; +INSU100I29 SC; +LISI10TA2 PO; +NF-SODBICA PO; +RISP0.253 PO
[2020-03-12] MEDS ORDERED: NS IV 1000 ML 1,000 ML IV SCH (15:45)
[2020-03-12 15:47] LABS: CALCIUM 8.5 MG/DL (8.5-10.1)
[2020-03-12 15:49] LABS: TOTAL PROTEIN 7.2 GM/DL (6.4-8.2)
[2020-03-12 15:50] LABS: BILIRUBIN,TOTAL 0.2 MG/DL (0.1-1.0)
[2020-03-12 15:52] LABS: CREATININE SERUM 11.95 MG/DL (0.60-1.30)
[2020-03-12 15:54] LABS: BASOPHILS % (AUTO) 0 % (0-10); EOSINOPHILS # (AUTO) 0.2 10^3/uL (0.0-0.3); EOSINOPHILS % (AUTO) 2 % (0-10); HEMATOCRIT 38 % (35-52); LYMPHOCYTES # (AUTO) 2.9 10^3/uL (1.0-4.0); LYMPHOCYTES % (AUTO) 32 % (12-44); MEAN CORPUSCULAR HEMOGLOBIN 31 pg (25-34); MEAN CORPUSCULAR HGB CONC 31 g/dL (32-36); MEAN CORPUSCULAR VOLUME 99 fL (80-99); MEAN PLATELET VOLUME 13.9 fL (9.0-12.2); MONOCYTES # (AUTO) 0.7 10^3/uL (0.0-1.0); MONOCYTES % (AUTO) 7 % (0-12); NEUTROPHILS # (AUTO) 5.3 10^3/uL (1.8-7.8); NEUTROPHILS % (AUTO) 58 % (42-75); PLATELET COUNT 230 10^3/uL (130-400); WHITE BLOOD COUNT 9.2 10^3/uL (4.3-11.0)
--- NOTE | 2020-03-12 16:08 | Diagnostic Imaging Report ---
HISTORY: Shortness of breath and weakness. COMPARISON: 01/15/2020. TECHNIQUE: Frontal view of the chest was obtained. FINDINGS: Lung volumes are large. No focal consolidation is seen. Nipple shadows are noted, bilaterally. There is no pleural effusion or pneumothorax. There is mild cardiomegaly which appears stable. There is diffuse osteopenia. IMPRESSION: Large lung volumes with no acute pulmonary abnormality seen. Dictated by: Dictated on workstation # [id number]
[2020-03-12 16:09] LABS: POTASSIUM 8.2 MMOL/L (3.6-5.0)
[2020-03-12] MEDS ORDERED: DEXTROSE 50% 50 ML (IMS) SYR IV ONE (16:15)
[2020-03-12] MEDS ORDERED: inSUlin (REGULAR) HUMAN 1 UNIT/0.01 ML (CHARGE PER UNIT) IV ONE (16:15)
[2020-03-12] MEDS ORDERED: SOD POLYSTERENE 15 GM/60 ML (KAYEXALATE) UNIT DOSE PO ONE (16:15)
[2020-03-12] MEDS ORDERED: SODIUM BICARB 8.4% 50 MEQ/50 ML VIAL IV ONE (16:15)
[2020-03-12] MEDS ORDERED: CALCIUM GLUC. 10% 4.65 MEQ/10 ML VIAL IV ONE (16:15)
[2020-03-12 16:23] LABS: BILIRUBIN,URINE NEGATIVE (NEGATIVE); CLARITY,URINE CLOUDY; COLOR,URINE YELLOW; GLUCOSE, URINE (UA) NEGATIVE (NEGATIVE); KETONES,URINE NEGATIVE (NEGATIVE); LEUKOCYTE ESTERASE ,URINE 2+ (NEGATIVE); NITRITE,URINE NEGATIVE (NEGATIVE); PH,URINE 5.5 (5-9); PROTEIN,URINE 1+ (NEGATIVE)
[2020-03-12 16:29] LABS: BACTERIA,URINE TRACE /HPF; RBC,URINE 0-2 /HPF; WBC,URINE >100 /HPF
--- NOTE | 2020-03-12 16:35 | NUR ---
this nurse attempted to straight cath patient, patient stated too painful, pulled away from RN, doctor notifed, patient able to give urine via bed side commode.
--- NOTE | 2020-03-12 16:40 | NUR ---
notified of patient condition and transfer.
[2020-03-12] MEDS ORDERED: NS IV 500 ML 500 ML ONE (16:41)
[2020-03-12 16:47] LABS: ABG BASE EXCESS -22.9 MMOL/L (-2.5-2.5); ABG OXYGEN SATURATION 99 % (94-100); ABG PCO2 23 MMHG (35-45); ABG PO2 163 MMHG (79-93); ABG TCO2 6.6 MMOL/L (21.0-31.0); ALLENS TEST YES-POS; INSPIRED O2 RA; VENTILATOR NO
--- NOTE | 2020-03-12 16:47 | ED General ---
General Chief Complaint: Respiratory Problems Stated Complaint: BODY ACHES, REA, SOB, DIARRHEA, N/V Nursing Triage Note: patient taken to room via w/c complaint of weakness, sob x 4 weeks. patient denies having a covid Nursing Sepsis Screen: No Definite Risk Source of Information: Patient Exam Limitations: Other (patient's confusion) History of Present Illness Date Seen by Provider: Mar 12, 2020 Time Seen by Provider: 15:15 Initial Comments Patient is a 74-year-old female who presents to the emergency department today with a chief complaint of generalized weakness. Patient is unable to provide me very much of her HPI secondary to what sounds like some confusion on her part. Patient is able to tell me that she is weak. She is able to tell me that she has been slightly short of breath. Other than that she complains of some palpitations and chronic right arm pain. Majority of the history is obtained from her who tells me that she got a's "stomach flu" about 3 weeks ago and had some nausea vomiting and diarrhea. Patient has a history of ulcerative colitis and has an ileostomy site in her right lower quadrant. He states when she developed the symptoms he was trying to get her to the hospital but she kept telling him she did not want to go. Finally this week she became acutely confused and this is worsened throughout the week and he involved the patient's daughter to help to get her to the hospital. He states that she is not really eaten and drank very much food or fluids over the course of the last several days. He denies fevers or chills. All other review of systems reviewed and negative except as stated. Timing/Duration: 1 Week, Getting Worse Severity: Moderate Associated Systoms: Loss of Appetite, Malaise, Nausea/Vomiting, Weakness Allergies and Home Medications Allergies Coded Allergies: Sulfa (Sulfonamide Antibiotics) (Verified Allergy, Unknown, 06/11/06) iodine (Verified Allergy, Unknown, 01/17/20) Home Medications Atenolol 50 Mg Tablet, 50 MG PO DAILY, (Reported) Gabapentin 100 Mg Capsule, 100 MG PO DAILY PRN for PAIN-BREAKTHROUGH, (Reported) Insulin Detemir 100 Unit/1 Ml Insuln.pen, 25 UNITS SC DAILY Prescribed by: DON GORDON on 01/18/20 0900 Lisinopril 10 Mg Tablet, 10 MG PO DAILY, (Reported) LAST FILLED 09-09-2019 #90/90 DAY SUPPLY Multivitamin/Iron/Folic Acid 1 Each Tablet, 1 TAB PO DAILY, (Reported) Risperidone 0.25 Mg Tablet, 0.25 MG PO BID Prescribed by: DON GORDON on 01/18/20 0900 Sodium Bicarbonate 650 Mg Tablet, 650 MG PO TID Prescribed by: DON GORDON on 01/18/20 0900 Patient Home Medication List Home Medication List Reviewed: Yes Review of Systems Review of Systems Constitutional: see HPI, malaise, weakness EENTM: no symptoms reported Respiratory: no symptoms reported Cardiovascular: no symptoms reported Gastrointestinal: abdominal pain Genitourinary: no symptoms reported : No Musculoskeletal: other (arm pain) Skin: no symptoms reported All Other Systems Reviewed Negative Unless Noted: Yes Past Qkwwsrw-Fhlycq-Voiope Hx Patient Social History 2nd Hand Smoke Exposure: No Recent Infectious Disease Expo: No Recent Hopitalizations: Yes Seasonal Allergies Seasonal Allergies: No Past Medical History Surgeries: Yes (COLECTOMY,APPY,POUCH FROM SM.INTESTINE,ADHESIONS,D&C,STOMA CLOSURE) Respiratory: No Cardiac: No Neurological: No Reproductive Disorders: No Gastrointestinal: Yes (06/11/06 ON 4TH FOR DEHYDRATION & ELEVATED LIVER ENZYMES) Musculoskeletal: No Blood Disorders: No Physical Exam Vital Signs Vital Signs - First Documented 03/12/20 14:50 Temp 35.8 Pulse 50 Resp 18 B/P (MAP) 89/59 (69) Pulse Ox 90 O2 Delivery Room Air Capillary Refill : Less Than 3 Seconds Height, Weight, BMI Height: 5'6.00" Weight: 134lbs. 0.5oz. 60.508424qh; 15.00 BMI Method:Stated General Appearance: No Apparent Distress, WD/WN Eyes: Bilateral Eye Normal Inspection, Bilateral Eye PERRL, Bilateral Eye EOMI HEENT: PERRL/EOMI Neck: Full Range of Motion Respiratory: Lungs Clear, Normal Breath Sounds, No Accessory Muscle Use, No Respiratory Distress Cardiovascular: Regular Rate, Rhythm, No Murmur, Bradycardia Gastrointestinal: Normal Bowel Sounds, Soft, Tenderness (Diffuse mild tenderne ss), Other (Patient has an ostomy in the right lower quadrant that is covered with a gauze dressing, surrounding skin is mildly erythematous) Extremity: Normal Capillary Refill, Normal Inspection, Non Tender, No Pedal Edema Neurologic/Psychiatric: Alert, No Motor/Sensory Deficits, Normal Mood/Affect, Disoriented, Other (Patient is acutely confused and has difficulty answering questions, she tells me that she has "a baby girl that my mother helps me take care of") Skin: Normal Color, Warm/Dry Focused Exam Lactate Level 03/12/20 15:00: Lactic Acid Level 1.20 Lactic Acid Level Laboratory Tests Test 03/12/20 15:00 Lactic Acid Level 1.20 MMOL/L (0.50-2.00) Progress/Results/Core Measures Suspected Sepsis Recent Fever Within 48 Hours: No Infection Criteria Present: Suspected New Infection New/Unexplained Altered Menta: Yes Sepsis Screen: No Definite Risk SIRS Temperature: Pulse: 50 Respiratory Rate: 18 Laboratory Tests 03/12/20 15:00: White Blood Count 9.2 Blood Pressure 89 /59 Mean: 69 03/12/20 15:00: Lactic Acid Level 1.20 Laboratory Tests 03/12/20 15:00: Creatinine 11.95H, Platelet Count 230, Total Bilirubin 0.2 Results/Orders Lab Results Laboratory Tests Test 03/12/20 15:00 03/12/20 16:13 03/12/20 16:35 Range/Units White Blood Count 9.2 4.3-11.0 10^3/uL Red Blood Count 3.85 3.80-5.11 10^6/uL Hemoglobin 12.0 11.5-16.0 g/dL Hematocrit 38 35-52 % Mean Corpuscular Volume 99 80-99 fL Mean Corpuscular Hemoglobin 31 25-34 pg Mean Corpuscular Hemoglobin Concent 31 L 32-36 g/dL Red Cell Distribution Width 12.9 10.0-14.5 % Platelet Count 230 130-400 10^3/uL Mean Platelet Volume 13.9 H 9.0-12.2 fL Immature Granulocyte % (Auto) 1 % Neutrophils (%) (Auto) 58 42-75 % Lymphocytes (%) (Auto) 32 12-44 % Monocytes (%) (Auto) 7 0-12 % Eosinophils (%) (Auto) 2 0-10 % Basophils (%) (Auto) 0 0-10 % Neutrophils # (Auto) 5.3 1.8-7.8 10^3/uL Lymphocytes # (Auto) 2.9 1.0-4.0 10^3/uL Monocytes # (Auto) 0.7 0.0-1.0 10^3/uL Eosinophils # (Auto) 0.2 0.0-0.3 10^3/uL Basophils # (Auto) 0.0 0.0-0.1 10^3/uL Immature Granulocyte # (Auto) 0.1 0.0-0.1 10^3/uL Sodium Level 135 135-145 MMOL/L Potassium Level 8.2 *H 3.6-5.0 MMOL/L Chloride Level 115 H 98-107 MMOL/L Carbon Dioxide Level 6 *L 21-32 MMOL/L Anion Gap 14 5-14 MMOL/L Blood Urea Nitrogen 119 *H 7-18 MG/DL Creatinine 11.95 H 0.60-1.30 MG/DL Estimat Glomerular Filtration Rate 3 BUN/Creatinine Ratio 10 Glucose Level 249 H 70-105 MG/DL Lactic Acid Level 1.20 0.50-2.00 MMOL/L Calcium Level 8.5 8.5-10.1 MG/DL Corrected Calcium 8.5 8.5-10.1 MG/DL Total Bilirubin 0.2 0.1-1.0 MG/DL Aspartate Amino Transf (AST/SGOT) 14 5-34 U/L Alanine Aminotransferase (ALT/SGPT) 18 0-55 U/L Alkaline Phosphatase 109 40-136 U/L Ammonia 81 H 11-32 UMOL/L C-Reactive Protein High Sensitivity 0.07 0.00-0.50 MG/DL Total Protein 7.2 6.4-8.2 GM/DL Albumin 4.0 3.2-4.5 GM/DL Procalcitonin 0.25 H <0.10 NG/ML Urine Color YELLOW Urine Clarity CLOUDY Urine pH 5.5 5-9 Urine Specific Tyler >=1.030 1.016-1.022 Urine Protein 1+ H NEGATIVE Urine Glucose (UA) NEGATIVE NEGATIVE Urine Ketones NEGATIVE NEGATIVE Urine Nitrite NEGATIVE NEGATIVE Urine Bilirubin NEGATIVE NEGATIVE Urine Urobilinogen 0.2 < = 1.0 MG/DL Urine Leukocyte Esterase 2+ H NEGATIVE Urine RBC (Auto) 2+ H NEGATIVE Urine RBC 0-2 /HPF Urine WBC >100 H /HPF Urine Squamous Epithelial Cells NONE /HPF Urine Crystals NONE /LPF Urine Bacteria TRACE /HPF Urine Casts NONE /LPF Urine Mucus NEGATIVE /LPF Urine Culture Indicated YES Blood Gas Puncture Site RR Blood Gas Patient Temperature 38 Arterial Blood pH 7.03 *L 7.37-7.43 Arterial Blood Partial Pressure CO2 23 L 35-45 MMHG Arterial Blood Partial Pressure O2 163 H 79-93 MMHG Arterial Blood HCO3 6 *L 23-27 MMOL/L Arterial Blood Total CO2 6.6 L 21.0-31.0 MMOL/L Arterial Blood Oxygen Saturation 99 94-100 % Arterial Blood Base Excess -22.9 L -2.5-2.5 MMOL/L Brennon Test YES-POS Blood Gas Ventilator Setting NO Blood Gas Inspired Oxygen RA Micro Results Microbiology 03/12/20 Influenza Types A,B Antigen (MORAIMA) - Final, Complete My Orders Orders - NEWTON COX MD Ed Iv/Invasive Line Start (03/12/20 15:34) Cbc With Automated Diff (03/12/20 15:34) Comprehensive Metabolic Panel (03/12/20 15:34) Ua Culture If Indicated (03/12/20 15:34) Lactic Acid Analyzer (03/12/20 15:34) Procalcitonin (Pct) (03/12/20 15:34) Hs C Reactive Protein (03/12/20 15:34) Ekg Tracing (03/12/20 15:34) Chest 1 View, Ap/Pa Only (03/12/20 15:34) Ammonia (03/12/20 15:34) Ns Iv 1000 Ml (Sodium Chloride 0.9%) (03/12/20 15:45) Covid 19 Inhouse Test (03/12/20 15:58) Influenza A And B Antigens (03/12/20 15:58) Insulin (Regular) Human (Novolin R (Per (03/12/20 16:15) D50w (Emergency) Syringe (Dextrose 50% 5 (03/12/20 16:15) Sodium Bicarbonate 8.4% Vial (Sodium Bic (03/12/20 16:15) Sodium Polystyrene Sulfonate (Kayexalate (03/12/20 16:15) Calcium Gluconate 10% Inj (Calcium Glu (03/12/20 16:15) Urine Culture (03/12/20 16:13) Coronavirus Sars-Cov-2 So 2019 (03/12/20 15:00) Arterial Blood Gas (03/12/20 16:42) Ns Iv 500 Ml (Sodium Chloride 0.9%) (03/12/20 16:41) Ns Iv 500 Ml (Sodium Chloride 0.9%) (03/12/20 17:00) Medications Given in ED Current Medications Medications Dose Ordered Sig/Josh Route Start Time Stop Time Status Last Admin Dose Admin Calcium Gluconate 4.65 meq ONCE ONCE IV 03/12/20 16:15 03/12/20 16:19 DC 03/12/20 16:34 4.65 MEQ Dextrose 50 ml ONCE ONCE IV 03/12/20 16:15 03/12/20 16:19 DC 03/12/20 16:28 50 ML Insulin Human Regular 10 unit ONCE ONCE IV 03/12/20 16:15 03/12/20 16:19 DC 03/12/20 16:28 10 UNIT Sodium Polystyrene Sulfonate 15 gm ONCE ONCE PO 03/12/20 16:15 03/12/20 16:19 DC 03/12/20 16:43 15 GM Sodium Bicarbonate 50 meq ONCE ONCE IV 03/12/20 16:15 03/12/20 16:19 DC 03/12/20 16:34 50 MEQ Sodium Chloride 500 ml @ [facility] ONCE .ROUTE 03/12/20 16:41 03/12/20 16:45 DC 03/12/20 16:50 500 MLS/HR Vital Signs/I&O 03/12/20 14:50 Temp 35.8 Pulse 50 Resp 18 B/P (MAP) 89/59 (69) Pulse Ox 90 O2 Delivery Room Air Capillary Refill : Less Than 3 Seconds Blood Pressure Mean: 69 ECG Initial ECG Impression Date: Mar 12, 2020 Initial ECG Impression Time: 15:15 Initial ECG Rate: 57 Initial ECG Rhythm: Normal Sinus Initial ECG Intervals: Normal Initial ECG Impression: Normal Initial ECG Comparisson: Unchanged Diagnostic Imaging Plain Films/CT/US/NM/MRI: chest Comments [facility], [place] NAME: DEBORAH CRUZ [facility] REC#: [id number] PT STATUS: REG ER : 1945 PHYSICIAN: NEWTON COX MD ADMIT DATE: 03/12/20/ER Draft Date of Exam:03/12/20 CHEST 1 VIEW, AP/PA ONLY HISTORY: Shortness of breath and weakness. COMPARISON: 01/15/2020. TECHNIQUE: Frontal view of the chest was obtained. FINDINGS: Lung volumes are large. No focal consolidation is seen. Nipple shadows are noted, bilaterally. There is no pleural effusion or pneumothorax. There is mild cardiomegaly which appears stable. There is diffuse osteopenia. IMPRESSION: Large lung volumes with no acute pulmonary abnormality seen. Dictated on workstation # [id number] Dict: 03/12/20 1606 Trans: 03/12/20 1608 [facility] [id number] Interpreted by: EVE SHAH MD Electronically signed by: Critical Care Note Critical Care Start Time: 16:20 Stop Time: 17:00 Total Time (minutes) 40 minutes critical care time in the evaluation and management of this patient with severe metabolic acidosis, nonanion gap. Patient has acute renal failure, she is fluid resuscitated, hyperkalemia is treated with bicarb, insulin, D50, Kayexalate and calcium gluconate; review of the medical records, discussion with hospitalist and transfer facility Departure Impression Primary Impression: Normal anion gap metabolic acidosis Additional Impressions: Hyperkalemia Diabetes mellitus type II, uncontrolled Qualified Codes: E11.65 - Type 2 diabetes mellitus with hyperglycemia Acute on chronic renal failure Qualified Codes: N17.9 - Acute kidney failure, unspecified; N18.9 - Chronic kidney disease, unspecified Disposition: XF [facility] Condition: Stable Transfer Transfer Reason: Exceeds level of care Time Spoke to Accepting Phy: 16:30 Transfer Progress Notes Case discussed with Dr. Nguyen, ED physician at [facility] who accepts patient for admission Transfer Time: 17:22 Transfer Facility: [facility] Method of Transfer: Air Departure-Patient Inst. Referrals: CAMILLE MENDEZ MD (PCP/Family) Primary Care Physician Copy Copies To 1: CAMILLE MENDEZ MD, KATHRYN M MD Mar 12, 2020 16:47
[2020-03-12 16:49] LABS: ABG PH 7.03 (7.37-7.43); PATIENT TEMP 38
[2020-03-12] MEDS ORDERED: NS IV 500 ML 500 ML IV SCH (17:00)
[2020-03-12 17:30] VITALS: BP 110/39
== END 2020-03-12 18:15 | disposition short-term general hospital (02) ==
LOC: EDUNIT# 14:39 → ER 14:41
DX: E87.2 Acidosis (principal); E87.5 Hyperkalemia; E11.65 Type 2 diabetes mellitus with hyperglycemia; N17.9 Acute kidney failure, unspecified; Z88.2 Allergy status to sulfonamides; Z91.041 Radiographic dye allergy status; Z20.822 Contact with and (suspected) exposure to COVID-19
CPT/HCPCS: 71045; 80053; 81000; 82140; 82805; 83605; 84145; 85025; 86141; 87088; 87804; 99285; U0002; 36415; 87635

== ENCOUNTER → 2020-05-26 | Outpatient (CLI) | payer MEDICARE, OTHER ==
[~2020-05-26] MED LIST changes: -LISI-556 PO; +LISI-729 PO; -LISI10TA2 PO; +LISI10TA25 PO
--- NOTE | 2020-05-26 14:33 | Diagnostic Imaging Report ---
PROCEDURE: US Renal Bilateral. TECHNIQUE: Multiple real-time grayscale images were obtained over the kidneys in various projections bilaterally. INDICATION: Chronic renal failure. FINDINGS: The right kidney measures 9.3 x 4.1 x 5.2 cm and the left kidney measures 8.5 x 3.9 x 5.4 cm. Cortical thickness and echogenicity is normal bilaterally. There does appear to be mild hydronephrosis on the right. No hydronephrosis on the left is seen. There are no calculi. IMPRESSION: Mild right-sided hydronephrosis. The study is otherwise unremarkable. Dictated by: Dictated on workstation # [id number]
== END ==
LOC: RAD 13:50
PROVIDERS: ATTEND Family Medicine
DX: N18.9 Chronic kidney disease, unspecified (principal); N13.30 Unspecified hydronephrosis
CPT/HCPCS: 76770

== ENCOUNTER → 2020-07-02 | Outpatient (CLI) | payer MEDICARE, OTHER ==
--- NOTE | 2020-07-02 13:31 | Diagnostic Imaging Report ---
INDICATION: Abdominal pain. COMPARISON: 11/11/2009 FINDINGS: Single supine radiographic view of the abdomen was obtained and demonstrates nondistended loops of small bowel. There is no large collection of free peritoneal air. Mild air and stool are seen scattered throughout the colon. No unexpected extraosseous calcifications or radiopaque foreign bodies are seen. Bony structures show no gross acute abnormalities. IMPRESSION: 1. Nonobstructed small bowel gas pattern. Dictated by: Dictated on workstation # [id number]
== END ==
LOC: RAD 12:09
PROVIDERS: ATTEND Family Medicine
DX: R10.9 Unspecified abdominal pain (principal)
CPT/HCPCS: 74018

== ENCOUNTER 2020-07-27 14:46 | Inpatient (IN) | payer MEDICARE, OTHER ==
[~2020-07-27] VITALS: Ht 167 cm; Wt 54.5 kg
[2020-07-27 15:46] LABS: BASOPHILS % (AUTO) 0 % (0-10); EOSINOPHILS % (AUTO) 0 % (0-10); HEMATOCRIT 36 % (35-52); HEMOGLOBIN 11.7 g/dL (11.5-16.0); LYMPHOCYTES # (AUTO) 0.6 X 10^3 (1.0-4.0); LYMPHOCYTES % (AUTO) 13 % (12-44); MEAN CORPUSCULAR HEMOGLOBIN 31 pg (25-34); MEAN CORPUSCULAR HGB CONC 32 g/dL (32-36); MEAN CORPUSCULAR VOLUME 95 fL (80-99); MEAN PLATELET VOLUME 11.9 fL (9.0-12.2); MONOCYTES # (AUTO) 0.6 X 10^3 (0.0-1.0); MONOCYTES % (AUTO) 14 % (0-12); NEUTROPHILS # (AUTO) 3.3 X 10^3 (1.8-7.8); NEUTROPHILS % (AUTO) 73 % (42-75); PLATELET COUNT 254 10^3/uL (130-400); WHITE BLOOD COUNT 4.5 10^3/uL (4.3-11.0)
[2020-07-27 15:52] LABS: ALBUMIN 3.8 GM/DL (3.2-4.5); POTASSIUM 5.3 MMOL/L (3.6-5.0)
[2020-07-27 15:53] LABS: CALCIUM 9.4 MG/DL (8.5-10.1)
[2020-07-27 15:55] LABS: TOTAL PROTEIN 7.2 GM/DL (6.4-8.2)
[2020-07-27 15:56] LABS: BILIRUBIN,TOTAL 0.5 MG/DL (0.1-1.0)
[2020-07-27 15:58] LABS: CREATININE SERUM 2.52 MG/DL (0.60-1.30)
[2020-07-27 16:02] LABS: BAND NEUTROPHILS 40 %; EOSINOPHILS % (MANUAL) 1 %; LYMPHOCYTES % (MANUAL) 15 %; MONOCYTES % (MANUAL) 12 %; NEUTROPHILS % (MANUAL) 30 %; RBC MORPH NORMAL; REACTIVE LYMPHOCYTES 2 %; TOXIC GRANULATION/VACUOLAZATIO 2+
[2020-07-27] MEDS ORDERED: NS IV 1000 ML 1,000 ML IV SCH (16:15)
--- NOTE | 2020-07-27 16:28 | ED Abdominal Pain ---
General Chief Complaint: Abdominal/GI Problems Stated Complaint: NAUSEA,KIDNEY PAIN,KOCK PUCH ISSUES Nursing Triage Note: Pt to ED room 4 via wheelchair. Pt reports abd pain and back pain starting at 0900 this morning. Patient reports when she cathed her kock pouch today she noticed blood. Sepsis Screen: No Definite Risk Source of Information: Patient Exam Limitations: No Limitations History of Present Illness Date Seen by Provider: Jul 27, 2020 Time Seen by Provider: 16:27 Initial Comments To ER with abdominal pain and nausea. Began at 9:00 this morning. She has a Frausto Pouch on the right lower abdomen that she has had since age 23 she states, this was for treatment of ulcerative colitis following colectomy. She states around the site feels more distended and tender today and she has had some bloody output from it. Timing/Duration: 1-2 Days Severity/Quality: Moderate Location: Generalized Abdomen (Right sided abdomen around the Frausto pouch) Allergies and Home Medications Allergies Coded Allergies: Sulfa (Sulfonamide Antibiotics) (Verified Allergy, Unknown, 06/11/06) iodine (Verified Allergy, Unknown, 01/17/20) Home Medications Aripiprazole 5 Mg Tablet, 5 MG PO HS, (Reported) Last Action: Reviewed Gabapentin 100 Mg Capsule, 200 MG PO HS, (Reported) TAKES 2 (100MG) CAPS Last Action: Reviewed Insulin Detemir 100 Unit/1 Ml Insuln.pen, 13 UNIT SQ HS, (Reported) Last Action: Reviewed Liraglutide 0.6 Mg/0.1 Ml Pen.injctr, 0.6 MG SC DAILY, (Reported) Last Action: Reviewed Losartan Potassium 100 Mg Tablet, 100 MG PO HS, (Reported) Last Action: Reviewed Patient Home Medication List Home Medication List Reviewed: Yes Review of Systems Review of Systems Constitutional: see HPI EENTM: No Symptoms Reported Respiratory: No Symptoms Reported Cardiovascular: No Symptoms Reported Gastrointestinal: See HPI, Abdominal Pain Genitourinary: No Symptoms Reported Musculoskeletal: no symptoms reported Skin: no symptoms reported Psychiatric/Neurological: No Symptoms Reported Endocrine: No Symptoms Reported Hematologic/Lymphatic: No Symptoms Reported Past Xiziqmm-Wxzndf-Lroxdi Hx Patient Social History Alcohol Use: Denies Use Smoking Status: Never a Smoker 2nd Hand Smoke Exposure: No Recent Infectious Disease Expo: No Recent Hopitalizations: Yes Seasonal Allergies Seasonal Allergies: No Past Medical History Surgeries: Yes (COLECTOMY,APPY,POUCH FROM SM.INTESTINE,ADHESIONS,D&C,STOMA CLOSURE) Respiratory: No Cardiac: No Neurological: No Reproductive Disorders: No Gastrointestinal: Yes (ulcerative colitis) Musculoskeletal: No HEENT: No Cancer: No Psychosocial: Yes Blood Disorders: No Physical Exam Vital Signs Vital Signs - First Documented 07/27/20 15:20 Pulse 110 Resp 18 B/P (MAP) 146/70 (95) Pulse Ox 94 O2 Delivery Room Air Capillary Refill : Less Than 3 Seconds Height/Weight/BMI Height: 5'6.00" Weight: 134lbs. 0.5oz. 60.870998iq; 20.00 BMI Method:Stated General Appearance: WD/WN, no apparent distress, thin Neck: non-tender, full range of motion Respiratory: no respiratory distress Gastrointestinal: normal bowel sounds, soft, tenderness Extremities: normal range of motion, non-tender Neurologic/Psychiatric: alert, normal mood/affect, oriented x 3 Skin: normal color, warm/dry Progress/Results/Core Measures Results/Orders Lab Results Laboratory Tests Test 07/27/20 15:35 Range/Units White Blood Count 4.5 4.3-11.0 10^3/uL Red Blood Count 3.81 3.80-5.11 10^6/uL Hemoglobin 11.7 11.5-16.0 g/dL Hematocrit 36 35-52 % Mean Corpuscular Volume 95 80-99 fL Mean Corpuscular Hemoglobin 31 25-34 pg Mean Corpuscular Hemoglobin Concent 32 32-36 g/dL Red Cell Distribution Width 13.7 10.0-14.5 % Platelet Count 254 130-400 10^3/uL Mean Platelet Volume 11.9 9.0-12.2 fL Immature Granulocyte % (Auto) 0 % Neutrophils (%) (Auto) 73 42-75 % Lymphocytes (%) (Auto) 13 12-44 % Monocytes (%) (Auto) 14 H 0-12 % Eosinophils (%) (Auto) 0 0-10 % Basophils (%) (Auto) 0 0-10 % Neutrophils # (Auto) 3.3 1.8-7.8 X 10^3 Lymphocytes # (Auto) 0.6 L 1.0-4.0 X 10^3 Monocytes # (Auto) 0.6 0.0-1.0 X 10^3 Eosinophils # (Auto) 0.0 0.0-0.3 10^3/uL Basophils # (Auto) 0.0 0.0-0.1 10^3/uL Immature Granulocyte # (Auto) 0.0 0.0-0.1 10^3/uL Neutrophils % (Manual) 30 % Lymphocytes % (Manual) 15 % Monocytes % (Manual) 12 % Eosinophils % (Manual) 1 % Band Neutrophils 40 % Reactive Lymphocytes 2 % Toxic Granulation 2+ Blood Morphology Comment NORMAL Sodium Level 141 135-145 MMOL/L Potassium Level 5.3 H 3.6-5.0 MMOL/L Chloride Level 107 98-107 MMOL/L Carbon Dioxide Level 20 L 21-32 MMOL/L Anion Gap 14 5-14 MMOL/L Blood Urea Nitrogen 55 H 7-18 MG/DL Creatinine 2.52 H 0.60-1.30 MG/DL Estimat Glomerular Filtration Rate 19 BUN/Creatinine Ratio 22 Glucose Level 235 H 70-105 MG/DL Calcium Level 9.4 8.5-10.1 MG/DL Corrected Calcium 9.6 8.5-10.1 MG/DL Total Bilirubin 0.5 0.1-1.0 MG/DL Aspartate Amino Transf (AST/SGOT) 31 5-34 U/L Alanine Aminotransferase (ALT/SGPT) 30 0-55 U/L Alkaline Phosphatase 87 40-136 U/L Total Protein 7.2 6.4-8.2 GM/DL Albumin 3.8 3.2-4.5 GM/DL My Orders Orders - JERRY MARTINEZ APRN Cbc With Automated Diff (07/27/20 15:29) Comprehensive Metabolic Panel (07/27/20 15:29) Ed Iv/Invasive Line Start (07/27/20 15:29) Manual Differential (07/27/20 15:35) Ct Abdomen/Pelvis Wo (07/27/20 16:14) Ns Iv 1000 Ml (Sodium Chloride 0.9%) (07/27/20 16:15) Fentanyl Inj (Sublimaze Injection) (07/27/20 16:30) Medications Given in ED Vital Signs/I&O 07/27/20 15:20 Pulse 110 Resp 18 B/P (MAP) 146/70 (95) Pulse Ox 94 O2 Delivery Room Air Blood Pressure Mean: 95 Diagnostic Imaging Diagonstic Imaging: CT Comments NAME: DEBORAH CRUZ [facility] REC#: [id number] PT STATUS: REG ER : 1945 PHYSICIAN: JERRY MARTINEZ PRINCIPAL PROGRAMMER ADMIT DATE: 07/27/20/ER Signed Date of Exam:07/27/20 CT ABDOMEN/PELVIS WO PROCEDURE: CT abdomen and pelvis without contrast. TECHNIQUE: Multiple contiguous axial images were obtained through the abdomen and pelvis without the use of intravenous contrast. Auto Exposure Controls were utilized during the CT exam to meet ALARA standards for radiation dose reduction. INDICATION: Abdominal pain and back pain since this morning. Patient also has vomiting. Patient reportedly has a Kock pouch. COMPARISON: Correlation is made with prior CT from 05/24/2017. FINDINGS: Lung bases are clear apart from minimal scarring or atelectasis in the right lower lobe. The liver is unremarkable. Gallbladder is surgically absent. There is no biliary ductal dilatation. Pancreas and spleen are unremarkable. No adrenal mass is detected. Kidneys are unremarkable. Aorta is calcified but nonaneurysmal. There are numerous dilated and fluid-filled small bowel loops throughout the abdomen. Patient reportedly has had a total colectomy. Patient reportedly has had a Kock pouch placed with ostomy identified in the right paramidline abdomen. The Kock pouch appears to be markedly distended measuring up to 12.3 cm AP diameter x 12.4 cm transverse diameter. This would suggest obstruction at the level of the stoma. The bowel loops proximal to this are all dilated with air-fluid levels present. No free air is seen. No free fluid or fluid collection is identified. Bladder is decompressed. IMPRESSION: Postop changes of colectomy with Kock pouch placement. The Kock pouch appears to be markedly distended with stool. Small bowel loops proximal to this are dilated and fluid filled, consistent with obstruction. No pneumoperitoneum or abscess formation is seen. Dictated by: Dictated on workstation # [id number] Dict: 07/27/20 1803 Trans: 07/27/201926 AS6 [id number] Interpreted by: TRUNG MCMILLAN MD Electronically signed by: TRUNG MCMILLAN MD 07/27/201926 Departure Communication (Admissions) 1950-Spoke with Dr. Cole regarding the fecal impaction and the bowel obstr uction. Recommends trying to irrigate and break up this fecal impaction. As such I used an 18-gauge nasogastric tube inserted into the stoma several inches. I then used a total of 2.5 L of lukewarm tap water in small aliquots to irrigate the pouch and then attach it to suction. A total of 2000 mL was aspirated, patient tolerated well. This is tap water/stool mixture. I would believe there to be a large amount still left. I spoke with Dr. Cole and agrees to admit for continued irrigation and suction overnight. I spoke with Dr. Diego Mendez who agrees with this plan as well. Patient is also agreeable. She is in good spirits and without pain. Impression Primary Impression: SBO (small bowel obstruction) Additional Impression: Impacted stool in intestine Disposition: ADMITTED INPATIENT Condition: Stable Admissions Decision to Admit Reason: Admit from ER (General) Decision to Admit/Date: Jul 27, 2020 Time/Decision to Admit Time: 19:52 Departure-Patient Inst. Decision time for Depature: 19:52 Referrals: DIEGO MENDEZ MD (PCP/Family) Primary Care Physician JERRY MARTINEZ APRN Jul 27, 2020 16:28
[2020-07-27] MEDS ORDERED: fentaNYL INJ 100 MCG/2 ML AMP IVP ONE ×2 (16:30→20:30)
--- NOTE | 2020-07-27 18:21 | Diagnostic Imaging Report ---
PROCEDURE: CT abdomen and pelvis without contrast. TECHNIQUE: Multiple contiguous axial images were obtained through the abdomen and pelvis without the use of intravenous contrast. Auto Exposure Controls were utilized during the CT exam to meet ALARA standards for radiation dose reduction. INDICATION: Abdominal pain and back pain since this morning. Patient also has vomiting. Patient reportedly has a Kock pouch. COMPARISON: Correlation is made with prior CT from 05/24/2017. FINDINGS: Lung bases are clear apart from minimal scarring or atelectasis in the right lower lobe. The liver is unremarkable. Gallbladder is surgically absent. There is no biliary ductal dilatation. Pancreas and spleen are unremarkable. No adrenal mass is detected. Kidneys are unremarkable. Aorta is calcified but nonaneurysmal. There are numerous dilated and fluid-filled small bowel loops throughout the abdomen. Patient reportedly has had a total colectomy. Patient reportedly has had a Kock pouch placed with ostomy identified in the right paramidline abdomen. The Kock pouch appears to be markedly distended measuring up to 12.3 cm AP diameter x 12.4 cm transverse diameter. This would suggest obstruction at the level of the stoma. The bowel loops proximal to this are all dilated with air-fluid levels present. No free air is seen. No free fluid or fluid collection is identified. Bladder is decompressed. IMPRESSION: Postop changes of colectomy with Kock pouch placement. The Kock pouch appears to be markedly distended with stool. Small bowel loops proximal to this are dilated and fluid filled, consistent with obstruction. No pneumoperitoneum or abscess formation is seen. Dictated by: Dictated on workstation # [id number]
--- NOTE | 2020-07-27 21:56 | Diagnostic Imaging Report ---
INDICATION: Ileostomy in place. Fecal impaction has been interrogated in the emergency department. FINDINGS: Upright view of the chest demonstrates the lungs to be clear. The heart and vascularity are normal. Supine and upright views of the abdomen demonstrate the small bowel to be distended with some air-fluid levels. Postoperative clips are present in the abdomen. IMPRESSION: Findings are suspicious for a developing small bowel obstruction. Small bowel is distended with air-fluid levels. Dictated by: Dictated on workstation # [id number]
[2020-07-27] MEDS: ONDANSETRON 4 MG/2 ML (SDV) Z0FRAN IV PRN (22:26)
[2020-07-27] MEDS: NS IV 1000 ML 1,000 ML IV SCH (22:26)
[2020-07-27] MEDS: fentaNYL INJ 100 MCG/2 ML AMP IV PRN (23:03)
[2020-07-28] VITALS (7 sets, daily range): BP systolic 114–136; BP diastolic 59–79
[2020-07-28] MEDS ORDERED: RT-ALBUTEROL/IPRATROPIUM 3 ML (DUONEB) VIAL INH PRN (00:15)
[2020-07-28] MEDS: fentaNYL INJ 100 MCG/2 ML AMP IV PRN ×5 (01:20→19:53)
[2020-07-28 06:08] LABS: BASOPHILS # (AUTO) 0.1 10^3/uL (0.0-0.1); BASOPHILS % (AUTO) 1 % (0-10); EOSINOPHILS # (AUTO) 0.2 10^3/uL (0.0-0.3); EOSINOPHILS % (AUTO) 2 % (0-10); HEMATOCRIT 32 % (35-52); HEMOGLOBIN 9.9 g/dL (11.5-16.0); LYMPHOCYTES % (AUTO) 13 % (12-44); MEAN CORPUSCULAR HEMOGLOBIN 30 pg (25-34); MEAN CORPUSCULAR HGB CONC 31 g/dL (32-36); MEAN CORPUSCULAR VOLUME 96 fL (80-99); MEAN PLATELET VOLUME 12.3 fL (9.0-12.2); MONOCYTES % (AUTO) 13 % (0-12); NEUTROPHILS # (AUTO) 5.4 10^3/uL (1.8-7.8); NEUTROPHILS % (AUTO) 70 % (42-75); PLATELET COUNT 232 10^3/uL (130-400); WHITE BLOOD COUNT 7.8 10^3/uL (4.3-11.0)
[2020-07-28] MEDS: ONDANSETRON 4 MG/2 ML (SDV) Z0FRAN IV PRN ×2 (06:10→19:53)
[2020-07-28 06:18] LABS: POTASSIUM 5.2 MMOL/L (3.6-5.0)
[2020-07-28 06:19] LABS: CALCIUM 8.6 MG/DL (8.5-10.1)
[2020-07-28 06:23] LABS: CREATININE SERUM 3.14 MG/DL (0.60-1.30)
[2020-07-28] MEDS: NS IV 1000 ML 1,000 ML IV SCH ×2 (06:31→13:43)
--- NOTE | 2020-07-28 09:04 | Diagnostic Imaging Report ---
Indication: Small bowel obstruction. Time of exam 8:10 AM Correlation is made with examination one day earlier. There continues to be some gaseous distention of small bowel loops throughout the abdomen with air-fluid levels. There appears to be a moderate amount of fecal material in the right lower quadrant, likely within patient's known MOSQUEDA pouch . No free air is seen. There are surgical clips in right upper quadrant. IMPRESSION: Features remain suggestive of small bowel obstruction with distended small bowel loops and air-fluid levels. Continued progress films are recommended. Dictated by: Dictated on workstation # [id number]
[2020-07-28] MEDS: inSUlin ASPART (NovoLOG) 1 UNIT/0.01 ML (CHARGE PER UNIT) SC SCH ×2 (10:50→22:24)
--- NOTE | 2020-07-28 12:38 | History & Physical ---
History of Present Illness History of Present Illness Reason for visit/HPI 75 yo F admitted for small bowel obstruction and acute on chronic kidney failure. Her Frausto pouch is distended as seen on CT. Patient complains of distension and pain. Patient thinks this has been going on for 2 months. Patient reports she has had one other issue of a small bowel obstruction (she is unsure of dates) that was resolved with an enema. Patient also would like to know about her memory and why it is not as good as it use to be. She has neurology appt in September 2020. Date of Admission Jul 27, 2020 at 18:13 Date Seen by a Provider: Jul 28, 2020 Time Seen by a Provider: 14:05 I consulted on this patient on 07/28/20 12:35 Attending Physician Diego Mendez MD Admitting Physician Diego Mendez MD Consult Allergies and Home Medications Allergies Coded Allergies: Sulfa (Sulfonamide Antibiotics) (Verified Allergy, Unknown, 06/11/06) iodine (Verified Allergy, Unknown, 01/17/20) Home Medications Aripiprazole 5 Mg Tablet, 5 MG PO HS, (Reported) Last Action: Reviewed Gabapentin 100 Mg Capsule, 200 MG PO HS, (Reported) TAKES 2 (100MG) CAPS Last Action: Reviewed Insulin Detemir 100 Unit/1 Ml Insuln.pen, 13 UNIT SQ HS, (Reported) Last Action: Reviewed Liraglutide 0.6 Mg/0.1 Ml Pen.injctr, 0.6 MG SC DAILY, (Reported) Last Action: Reviewed Losartan Potassium 100 Mg Tablet, 100 MG PO HS, (Reported) Last Action: Reviewed Patient Home Medication List Home Medication List Reviewed: Yes Past Bxzzycg-Vvhtdl-Pqfylw Hx Patient Social History Smoking Status: Never a Smoker 2nd Hand Smoke Exposure: No Recent Hopitalizations: Yes Have you traveled recently?: No Alcohol Use?: No Pt feels they are or have been: No Seasonal Allergies Seasonal Allergies: No Surgeries Yes (COLECTOMY,APPY,POUCH FROM SM.INTESTINE,ADHESIONS,D&C,STOMA CLOSURE) Respiratory No Cardiovascular No Neurological No Reproductive System Hx Reproductive Disorders: No Gastrointestinal Yes (ulcerative colitis) Musculoskeletal No HEENT History of HEENT Disorders: No Cancer No Psychosocial History of Psychiatric Problem: Yes Blood Transfusions History of Blood Disorders: No Review of Systems Review of Systems General: No Chills, No Night Sweats HEENT: No Head Aches, No Visual Changes Pulmonary: No Dyspnea, No Cough Cardiovascular: No: Chest Pain, Palpitations Gastrointestinal: Nausea, Abdominal Pain Genitourinary: No Dysuria Musculoskeletal: No: neck pain, shoulder pain Neurological: Weakness Physical Exam Vital Signs Vital Signs - First Documented 07/27/20 07/28/20 15:20 00:00 Temp 37.4 Pulse 110 Resp 18 B/P (MAP) 146/70 (95) Pulse Ox 94 O2 Delivery Room Air Capillary Refill : Less Than 3 Seconds Height, Weight, BMI Height: 5'6.00" Weight: 134lbs. 0.5oz. [id number]; 19.54 BMI Method:Stated General Appearance: Mild Distress Neck: Non Tender, Supple Respiratory: Chest Non Tender, Lungs Clear, Normal Breath Sounds Cardiovascular: Regular Rate, Rhythm Gastrointestinal: Distended, Tenderness Rectal: Deferred Back: Normal Inspection Extremity: Non Tender, No Calf Tenderness Neurologic/Psychiatric: Alert Skin: Warm/Dry Assessment/Plan Assessment/Plan Admission Dx small bowel obstruction. Admission Status: Observation Assessment and Plan Admitted for observation 07/27/20 07/28/20- Creatinine elevated to 3. Will give her a 500cc bolus and recheck bmp in AM. Continue IVF. continue with surgery recommendations of disimpacting Frausto pouch. IVF to bring down potassium- may need to do albuterol breathing treatments, insulin/glucose, kayexalate, lasix IV Dispo: guarded due to patient's multiple health issues. ordered PT to help get bowels moving and maintain strength. Patient's daughter would like her to have [facility] when she goes home. -keep appt with neurologist Dr. Calderon September 2020. Problems: (1) Acute on chronic renal failure (2) SBO (small bowel obstruction) Assessment & Plan: Dr Cole consulted. (3) fecal impaction of Frausto Pouch (4) Impacted stool in intestine (5) Hyperkalemia (6) Diabetes mellitus type II, uncontrolled Assessment & Plan: sliding scale insulin utilized BID while patient is NPO. DIEGO MENDEZ MD Jul 28, 2020 12:38
[2020-07-28] MEDS ORDERED: NS IV 500 ML 500 ML IV SCH (12:45)
--- NOTE | 2020-07-28 14:28 | Consultation - Surgery ---
History of Present Illness History of Present Illness Patient Consulted On(katya/time) 07/28/20 14:22 Date Seen by Provider: Jul 28, 2020 Time Seen by Provider: 07:40 History of Present Illness Consult requested by Dr. Chung for small bowel obstruction Patient is a 75-year-old female who states that for the last month she is having issues with her alfaro pouch. Not having is easy time of irrigating when she remembers. She is also stating that her memory is starting to slightly be more difficult. Patient states that over the last week or so she thinks that her abdomen has become more distended. Not getting quite to return on her Alfaro pouch. She tries to do it 3 times a day she states. She usually does not have any problems with that she states. She has had a little bit of bloody return. Patient has some mild abdominal discomfort around the Alfaro pouch without any radiation of pain. She has had some nausea and vomiting. She had a CT scan performed yesterday that demonstrated Alfaro pouch dilated with proximal distention of the small bowel consistent with small bowel obstruction. Allergies and Home Medications Allergies Coded Allergies: Sulfa (Sulfonamide Antibiotics) (Verified Allergy, Unknown, 06/11/06) iodine (Verified Allergy, Unknown, 01/17/20) Home Medications Atenolol 50 Mg Tablet, 50 MG PO DAILY, (Reported) Gabapentin 100 Mg Capsule, 100 MG PO DAILY PRN for PAIN-BREAKTHROUGH, (Reported) Insulin Detemir 100 Unit/1 Ml Insuln.pen, 25 UNITS SC DAILY Prescribed by: DON GORDON on 01/18/20 09 Lisinopril 10 Mg Tablet, 10 MG PO DAILY, (Reported) LAST FILLED 09-09-2019 #90/90 DAY SUPPLY Multivitamin/Iron/Folic Acid 1 Each Tablet, 1 TAB PO DAILY, (Reported) Risperidone 0.25 Mg Tablet, 0.25 MG PO BID Prescribed by: DON GORDON on 01/18/20 09 Sodium Bicarbonate 650 Mg Tablet, 650 MG PO TID Prescribed by: DON GORDON on 01/18/20 0900 Patient Home Medication List Home Medication List Reviewed: Yes Past Thmuorm-Tiazfm-Itcrjo Hx Patient Social History Smoking Status: Never a Smoker 2nd Hand Smoke Exposure: No Recent Hopitalizations: Yes Alcohol Use?: No Have you traveled recently?: No Seasonal Allergies Seasonal Allergies: No Surgeries History of Surgeries: Yes (COLECTOMY,APPY,POUCH FROM SM.INTESTINE,ADHESIONS,D&C,STOMA CLOSURE) Respiratory History of Respiratory Disorde: No Cardiovascular History of Cardiac Disorders: No Neurological History of Neurological Disord: No Reproductive System Hx Reproductive Disorders: No Gastrointestinal History of Gastrointestinal Di: Yes (ulcerative colitis) Musculoskeletal History of Musculoskeletal Dis: No HEENT History of HEENT Disorders: No Cancer History of Cancer: No Psychosocial History of Psychiatric Problem: Yes Blood Transfusions History of Blood Disorders: No Reviewed Nursing Assessment Reviewed/Agree w Nursing PMH: Yes Family Medical History Significant Family History: No Pertinent Family Hx Review of Systems-General Constitutional: No chills, No diaphoresis EENTM: No blurred vision, No double vision Respiratory: No dyspnea on exertion, No short of breath Cardiovascular: No chest pain, No palpitations Gastrointestinal: abdominal pain, nausea, vomiting Genitourinary: No decreased output, No discharge Musculoskeletal: No back pain, No joint pain Skin: No change in color, No change in hair/nails Psychiatric/Neurological: Denies Anxiety, Denies Depressed, Denies Emotional Problems All Other Systems Reviewed Negative Unless Noted: Yes (Negative excepted noted.) Physical Exam-General Problems Physical Exam Vital Signs Vital Signs - First Documented 07/27/20 07/28/20 15:20 00:00 Temp 37.4 Pulse 110 Resp 18 B/P (MAP) 146/70 (95) Pulse Ox 94 O2 Delivery Room Air Capillary Refill : Less Than 3 Seconds General Appearance: no apparent distress, thin HEENT: PERRL/EOMI, normal ENT inspection Neck: non-tender, supple Respiratory: chest non-tender, no respiratory distress, no accessory muscle use Cardiovascular: regular rate, rhythm, no JVD Gastrointestinal: distended, tenderness (Slight tenderness around the Cook pouch the ostomy portion is pink) Rectal: deferred Back: no CVA tenderness, no vertebral tenderness Extremities: non-tender, normal inspection Neurologic/Psychiatric: alert, normal mood/affect; No oriented x 3 Skin: normal color, warm/dry Lymphatic: no adenopathy Data Review Labs Laboratory Tests 07/27/20 15:35: White Blood Count 4.5, Red Blood Count 3.81, Hemoglobin 11.7, Hematocrit 36, Mean Corpuscular Volume 95, Mean Corpuscular Hemoglobin 31, Mean Corpuscular Hemoglobin Concent 32, Red Cell Distribution Width 13.7, Platelet Count 254, Mean Platelet Volume 11.9, Immature Granulocyte % (Auto) 0, Neutrophils (%) (Auto) 73, Lymphocytes (%) (Auto) 13, Monocytes (%) (Auto) 14H, Eosinophils (%) (Auto) 0, Basophils (%) (Auto) 0, Neutrophils # (Auto) 3.3, Lymphocytes # (Auto) 0.6L, Monocytes # (Auto) 0.6, Eosinophils # (Auto) 0.0, Basophils # (Auto) 0.0, Immature Granulocyte # (Auto) 0.0, Neutrophils % (Manual) 30, Lymphocytes % (Manual) 15, Monocytes % (Manual) 12, Eosinophils % (Manual) 1, Band Neutrophils 40, Reactive Lymphocytes 2, Toxic Granulation 2+, Blood Morphology Comment NORMAL, Sodium Level 141, Potassium Level 5.3H, Chloride Level 107, Carbon Dioxide Level 20L, Anion Gap 14, Blood Urea Nitrogen 55H, Creatinine 2.52H, Estimat Glomerular Filtration Rate 19, BUN/Creatinine Ratio 22, Glucose Level 235H, Calcium Level 9.4, Corrected Calcium 9.6, Total Bilirubin 0.5, Aspartate Amino Transf (AST/SGOT) 31, Alanine Aminotransferase (ALT/SGPT) 30, Alkaline Phosphatase 87, Total Protein 7.2, Albumin 3.8 07/28/20 05:48: White Blood Count 7.8, Red Blood Count 3.34L, Hemoglobin 9.9L, Hematocrit 32L, Mean Corpuscular Volume 96, Mean Corpuscular Hemoglobin 30, Mean Corpuscular He moglobin Concent 31L, Red Cell Distribution Width 13.4, Platelet Count 232, Mean Platelet Volume 12.3H, Immature Granulocyte % (Auto) 2, Neutrophils (%) (Auto) 70, Lymphocytes (%) (Auto) 13, Monocytes (%) (Auto) 13H, Eosinophils (%) (Auto) 2, Basophils (%) (Auto) 1, Neutrophils # (Auto) 5.4, Lymphocytes # (Auto) 1.0, Monocytes # (Auto) 1.0, Eosinophils # (Auto) 0.2, Basophils # (Auto) 0.1, Immature Granulocyte # (Auto) 0.1, Sodium Level 138, Potassium Level 5.2H, Chloride Level 106, Carbon Dioxide Level 19L, Anion Gap 13, Blood Urea Nitrogen 67H, Creatinine 3.14#H, Estimat Glomerular Filtration Rate 15, BUN/Creatinine Ratio 21, Glucose Level 206H, Calcium Level 8.6 07/28/20 10:18: Glucometer 196H Assessment/Plan Assessment/Plan Assessment/Plan Small bowel obstruction History of ulcerative colitis with Alfaro pouch that appears to be impacted. Evaded creatinine Patient to have pouch irrigated and continuing to follow with serial x-rays to see if any improvement. Patient to keep n.p.o. If this does not resolve would try soapsuds enemas. And then if this is not improving would also consider placing a scope down pouch to try to irrigate and suction the impaction out. C onservative management. ORIANA PATTERSON DO Jul 28, 2020 14:28
--- NOTE | 2020-07-28 15:42 | Physical Therapy Progress Note ---
Therapy Progress Note Order for evaluation received. Patient is currently fast asleep while two nurses are performing a procedure on her. Nurse states she is very tired and hasn't slept. She also says that patient has been ambulating with nursing in the hallway without difficulty, but that she probably needs some strengthening. Will check back in the morning. VALE BAE PT Jul 28, 2020 15:42
[2020-07-28] MEDS ORDERED: risperiDONE 1 MG (RisperDAL) TAB PO ONE (21:45)
[2020-07-28] MEDS ORDERED: HALOPERIDOL 5 MG/ML (HALDOL) VIAL IM ONE (22:00)
[2020-07-28] MEDS: GABAPENTIN 100 MG (NEURONTIN) CAP PO PRN (22:16)
[2020-07-29] MEDS: NS IV 1000 ML 1,000 ML IV SCH ×4 (01:28→21:52)
[2020-07-29] MEDS: fentaNYL INJ 100 MCG/2 ML AMP IV PRN ×2 (01:34→23:30)
[2020-07-29 03:25] VITALS: BP 111/57
[2020-07-29] MEDS: HALOPERIDOL 5 MG/ML (HALDOL) VIAL IM PRN (04:35)
[2020-07-29 08:01] VITALS: BP 126/60
[2020-07-29] MEDS: inSUlin ASPART (NovoLOG) 1 UNIT/0.01 ML (CHARGE PER UNIT) SC SCH ×2 (09:30→22:05)
[2020-07-29 10:51] LABS: CALCIUM 8.1 MG/DL (8.5-10.1); CREATININE SERUM 4.84 MG/DL (0.60-1.30); POTASSIUM 4.3 MMOL/L (3.6-5.0)
[2020-07-29 12:00] VITALS: BP 110/63
--- NOTE | 2020-07-29 12:20 | Diagnostic Imaging Report ---
INDICATION: Bowel obstruction, follow-up. Time of exam 11:22 a.m. Correlation is made with prior radiograph from one day earlier. The heart size is stable. The lungs are clear. No free air is seen. There has been an improvement in the bowel gas pattern since yesterday. Degree of small bowel distention does appear to be improved. There are some persistent mildly gaseous distended small bowel loops in the left midabdomen. There is gas identified in the descending colon on today's study. No definite air-fluid levels are seen on today's study. There is no pathologic calcification. IMPRESSION: Overall improvement in the bowel gas pattern when compared with the examination one day earlier. Dictated by: Dictated on workstation # [id number]
--- NOTE | 2020-07-29 12:44 | Progress Note ---
Subjective Subjective Date Seen by Provider: Jul 29, 2020 Time Seen by Provider: 12:35 Patient had an outburst last night. She was yelling and jumping on the bed per nursing staff. She wanted medication to help her sleep but then declined it afraid it was something bad. Some paranoia. She finally took the gabapentin and haldol injection. She is sleeping today. She did wake up when I spoke with her but went back to sleep. Review of Systems ROS Unable to Obtain: did not respond to ROS today. General: No Chills, No Night Sweats HEENT: No Head Aches, No Visual Changes Pulmonary: No Dyspnea, No Cough Cardiovascular: No: Chest Pain, Palpitations Gastrointestinal: Nausea, Abdominal Pain Genitourinary: No Dysuria Musculoskeletal: No: neck pain, shoulder pain Neurological: Weakness All Other Systems Reviewed All Other Systems Reviewed: Yes (Negative excepted noted.) Objective Exam Vital Signs Vital Signs Date Time Temp Pulse Resp B/P (MAP) Pulse Ox O2 Delivery O2 Flow Rate FiO2 07/29/20 12:00 36.4 99 16 110/63 (79) 94 Room Air 07/29/20 08:01 37.0 112 16 126/60 (82) 96 Room Air 07/29/20 08:00 Room Air 07/29/20 07:00 114 07/29/20 03:25 36.4 110 18 111/57 (75) 93 Room Air 07/29/20 01:00 109 07/28/20 23:57 37.1 107 18 114/66 (82) 97 Room Air 07/28/20 20:00 Room Air 07/28/20 20:00 36.5 105 20 136/77 (96) 96 Room Air 07/28/20 19:00 115 07/28/20 16:00 35.9 113 20 125/65 (85) 94 Room Air I & O 07/29/20 07:00 Intake Total 500 ml Output Total 4350 ml Balance -3850 ml General Appearance: Mild Distress Neck: Non Tender, Supple Respiratory: Chest Non Tender, Lungs Clear, Normal Breath Sounds Cardiovascular: Regular Rate, Rhythm Gastrointestinal: Distended (improved), Tenderness Rectal: Deferred Back: Normal Inspection Extremity: Non Tender, No Calf Tenderness Neurologic/Psychiatric: Other (asleep) Skin: Warm/Dry Results Lab Laboratory Tests 07/28/20 16:51: Glucometer 168H 07/28/20 21:59: Glucometer 213H 07/29/20 05:46: Glucometer 176H 07/29/20 09:17: Glucometer 196H 07/29/20 10:05: Sodium Level 137, Potassium Level 4.3, Chloride Level 101, Carbon Dioxide Level 19L, Anion Gap 17H, Blood Urea Nitrogen 98H, Creatinine 4.84#H, Estimat Glomerular Filtration Rate 9, BUN/Creatinine Ratio 20, Glucose Level 195H, Calcium Level 8.1L Assessment/Plan Assessment/Plan Admission Dx small bowel obstruction. Assessment and Plan Admitted for observation 07/27/20 07/28/20- Creatinine elevated to 3. Will give her a 500cc bolus and recheck bmp in AM. Continue IVF. continue with surgery recommendations of disimpacting Frausto pouch. IVF to bring down potassium- may need to do albuterol breathing treatments, in sulin/glucose, kayexalate, lasix IV 07/29/20 - Frausto pouch has opened up- abdominal distension is down. Now she is losing a lot of fluid through Frausto pouch. Cr elevated to almost 5. BUN 90s. (monitor output- could have upper GI bleed) Increasing IVFs. Bolus 1L LR, 1 amp of bicarb. recheck BMP this evening Dispo: guarded due to patient's multiple health issues. ordered PT to help get bowels moving and maintain strength. Patient's daughter would like her to have [facility] when she goes home. -keep appt with neurologist Dr. Calderon September 2020. Problems: (1) Acute on chronic renal failure (2) SBO (small bowel obstruction) Assessment & Plan: Dr Cole consulted. (3) fecal impaction of Frausto Pouch (4) Impacted stool in intestine (5) Hyperkalemia (6) Diabetes mellitus type II, uncontrolled Assessment & Plan: sliding scale insulin utilized BID while patient is NPO. Admission Dx small bowel obstruction. Clinical Quality Measures Admission Status Admission Dx small bowel obstruction. CAMILLE MENDEZ MD Jul 29, 2020 12:44
[2020-07-29] MEDS ORDERED: SODIUM BICARB 8.4% 50 MEQ/50 ML VIAL IV NR (12:45)
[2020-07-29] MEDS ORDERED: SODIUM BICARB 8.4% 50 MEQ/50 ML (ABBOTT) SYR IV NR (12:45)
[2020-07-29] MEDS ORDERED: LACTATED RINGERS 1,000 ML IV SCH (12:45)
[2020-07-29] MEDS ORDERED: LOSA100T57 PO (13:31)
[2020-07-29] MEDS ORDERED: INSU100I29 SQ (13:31)
[2020-07-29] MEDS ORDERED: ARIP5TAB57 PO (13:31)
[2020-07-29] MEDS ORDERED: LIRA0.6P3 SC (13:31)
--- NOTE | 2020-07-29 14:07 | Physical Therapy Evaluation ---
PT Evaluation-General Medical Diagnosis Admission Date Jul 27, 2020 at 18:13 Medical Diagnosis: SBO/fecal impaction of Frausto pouch Onset Date: Jul 27, 2020 Therapy Diagnosis Therapy Diagnosis: debility/weakness Height/Weight Height (Feet): 5 Height (Inches): 6.00 Weight (Pounds): 134 Weight (Ounces): 0.5 Precautions Precautions/Isolations: Fall Prevention, Standard Precautions Weight Bear Status Right Lower Extremity: Right Weight Bearing/Tolerated Left Lower Extremity: Left Weight Bearing/Tolerated Referral Physician: Sheldon Reason for Referral: Evaluation/Treatment Medical History Current History ER with abdominal pain and back pain Reviewed History: Yes Social History Home: Single Level Current Living Status: Spouse Prior Prior Level of Function SCALE: Activities may be completed with or without assistive devices. 1-Mphhyukjvb-ihlbjro completes the activity by him/herself with no assistance from a helper. 5-Set-up or Clean-up Assistance-helper sets up or cleans up; patient completes activity. [place] assists only prior to or following the activity. 4-Supervision or Touching Assistance-helper provides verbal cues and/or touching/steadying and/or contact guard assistance as patient completes activity. Assistance may be provided throughout the activity or intermittently. 3-Partial/Moderate Assistance-helper does LESS THAN HALF the effort. [place] lifts, holds or supports trunk or limbs, but provides less than half the effort. 2-Substantial/Maximal Assistance-helper does MORE THAN HALF the effort. [place] lifts or holds trunk or limbs and provides more than half the effort. 9-Crnxxbqju-oolhib does ALL the effort. Patient does none of the effort to complete the activity. Or, the assistance of 2 or more helpers is required for the patient to complete the activity. If activity was not attempted, code reason: 7-Patient Refused. 9-Not Applicable-not attempted and the patient did not perform the activity before the current illness, exacerbation or injury. 10-Not Attempted due to Environmental Limitations-(lack of equipment, weather restraints, etc.). 88-Not Attempted due to Medical Conditions or Safety Concerns. Bed Mobility: 3 Transfers (B,C,W/C): 3 Gait: 3 Indoor Mobility (Ambulation): Needed Some Help Prior Devices Use: Walker PT Evaluation-Current Subjective Patient is very confused. Objective Patient Orientation: Confused Attachments: IV ROM/Strength ROM Lower Extremities bilateral LE WFL Strength Lower Extremities 3/5 grossly bilateral LE Integumentary/Posture Posture WFL Neuromuscular (Tone, Coordination, Reflexes) diminished coordination Sensory Vision: Functional Hearing: Impaired Transfers Roll Left to Right (QC): 3 Sit to Lying (QC): 2 Lying to Sitting/Side of Bed(Q: 2 Sit to Stand (QC): 3 Gait Does the Patient Walk?: Yes Mode of Locomotion: Walk Anticipated Mode of Locomotion: Walk Walk 10 feet (QC): 3 Walk 50 ft with 2 Turns(QC): 3 Walk 150 ft (QC): 3 Distance: 175' Gait Assistive Device: FWW Comments/Gait Description extended UE's with FWW use/NBOS with shuffle gait sequence Balance Sitting Static: Fair Sitting Dynamic: Fair Standing Static: Fair Standing Dynamic: Fair Assessment/Needs 75 y.o. female, will benefit from skilled PT to address functional strength and mobility to improve current LOF. Patient appears very confused and fearful and has a live sitter present due to impulsive behaviors and is highly unaware of safety concerns. Rehab Potential: Fair PT [employer] Goals [employer] Goals PT Prison Goals Time Frame: Aug 07, 2020 Roll Left & Right (QC): 4 Sit to Lying (QC): 4 Lying-Sitting on Side/Bed(QC): 4 Sit to Stand (QC): 4 Chair/Ipl-pc-Vdpou Xfer(QC): 4 Toilet Transfer (QC): 4 Does the Patient Walk: Yes Walk 10 feet (QC): 4 Walk 50ft with 2 Turns (QC): 4 Walk 150 ft (QC): 4 PT Plan Problem List Problem List: Activity Tolerance, Functional Strength, Safety, Balance, Gait, Transfer, Bed Mobility Treatment/Plan Treatment Plan: Continue Plan of Care Treatment Plan: Bed Mobility, Education, Functional Activity Armando, Functional Strength, Gait, Safety, Therapeutic Exercise, Transfers Treatment Duration: Aug 07, 2020 Frequency: 6 times per week Estimated Hrs Per Day: .25 hour per day Time/GCodes Time In: 1331 Time Out: 1341 Total Billed Treatment Time: 10 Total Billed Treatment 1 visit EVModC 10 min JACQUE WILSON PT Jul 29, 2020 14:07
[2020-07-29 14:29] LABS: CLARITY,URINE CLEAR; COLOR,URINE AMBER; GLUCOSE, URINE (UA) NEGATIVE (NEGATIVE); KETONES,URINE NEGATIVE (NEGATIVE); LEUKOCYTE ESTERASE ,URINE NEGATIVE (NEGATIVE); NITRITE,URINE NEGATIVE (NEGATIVE); PH,URINE 5.5 (5-9); PROTEIN,URINE 1+ (NEGATIVE)
[2020-07-29 14:39] LABS: AMORPHOUS SEDIMENT,UR MOD AMOR URATES /LPF; BACTERIA,URINE NEGATIVE /HPF; BILIRUBIN,URINE 1+ (NEGATIVE)
[2020-07-29 15:09] VITALS: BP 128/52
--- NOTE | 2020-07-29 16:56 | Progress Note - Surgery ---
Subjective Date Seen by a Provider: Jul 29, 2020 Time Seen by a Provider: 12:50 Subjective/Events-last exam Fatigued. Sleeping but wakes up. Abdomen less distended. Xrays showing no stool ball in Frausto pouch and having it drained more appropriately now. No n/v fever sweats chills shortness of breath or chest pain. Objective Exam Vital Signs Date Time Temp Pulse Resp B/P (MAP) Pulse Ox O2 Delivery O2 Flow Rate FiO2 07/29/20 15:09 36.4 105 18 128/52 (77) 97 Room Air 07/29/20 13:00 103 07/29/20 12:00 36.4 99 16 110/63 (79) 94 Room Air 07/29/20 08:01 37.0 112 16 126/60 (82) 96 Room Air 07/29/20 08:00 Room Air 07/29/20 07:00 114 07/29/20 03:25 36.4 110 18 111/57 (75) 93 Room Air 07/29/20 01:00 109 07/28/20 23:57 37.1 107 18 114/66 (82) 97 Room Air 07/28/20 20:00 Room Air 07/28/20 20:00 36.5 105 20 136/77 (96) 96 Room Air 07/28/20 19:00 115 I & O 07/29/20 07:00 Intake Total 500 ml Output Total 4350 ml Balance -3850 ml Capillary Refill : Less Than 3 Seconds General Appearance: No Apparent Distress HEENT: PERRL/EOMI, Normal ENT Inspection Neck: Non Tender, Supple Respiratory: Chest Non Tender, Normal Breath Sounds, No Accessory Muscle Use Cardiovascular: Regular Rate, Rhythm, No JVD Gastrointestinal: non tender, soft Extremity: Non Tender, No Calf Tenderness Neurologic/Psychiatric: Other (asleep/demented wakes up and answers questions) Skin: Normal Color, Warm/Dry Lymphatic: No Adenopathy Results Lab Laboratory Tests 07/28/20 21:59: Glucometer 213H 07/29/20 05:46: Glucometer 176H 07/29/20 09:17: Glucometer 196H 07/29/20 10:05: Sodium Level 137, Potassium Level 4.3, Chloride Level 101, Carbon Dioxide Level 19L, Anion Gap 17H, Blood Urea Nitrogen 98H, Creatinine 4.84#H, Estimat Glomerular Filtration Rate 9, BUN/Creatinine Ratio 20, Glucose Level 195H, Calcium Level 8.1L 07/29/20 14:15: Urine Color AMBERH, Urine Clarity CLEAR, Urine pH 5.5, Urine Specific Epsom >=1.030, Urine Protein 1+H, Urine Glucose (UA) NEGATIVE, Urine Ketones NEGATIVE, Urine Nitrite NEGATIVE, Urine Bilirubin 1+H, Urine Urobilinogen 0.2, Urine Leukocyte Esterase NEGATIVE, Urine RBC (Auto) NEGATIVE, Urine RBC NONE, Urine WBC NONE, Urine Squamous Epithelial Cells 2-5, Urine Renal Epithelial Cells 2-5, Urine Crystals NONE, Urine Amorphous Sediment MOD JAGJIT URATESH, Urine Bacteria NEGATIVE, Urine Casts PRESENT, Urine Granular Casts 5-10H, Urine Mucus NEGATIVE, Urine Culture Indicated NO Assessment/Plan Assessment/Plan Assessment/Plan Impacted Frausto pouch causing sbo Dementia SANTO Cr 5 Anemia likely from irritation of Frausto pouch also could have upper source, would monitor and transfuse prbc as needed Irrigation of pouch relieved impaction and now abdomen soft and does not appear to be obstructed continue her routine flushing and draining of Frausto pouch follow labs No surgical intervention ORIANA PATTERSON DO Jul 29, 2020 16:56
[2020-07-29 19:11] VITALS: BP 130/59
[2020-07-29 20:15] LABS: POTASSIUM 4.2 MMOL/L (3.6-5.0)
[2020-07-29 20:16] LABS: CALCIUM 8.4 MG/DL (8.5-10.1)
[2020-07-29 20:21] LABS: CREATININE SERUM 4.94 MG/DL (0.60-1.30)
[2020-07-29] MEDS: SODIUM BICARBONATE 650 MG TABLET (NON-FORMULARY) PO SCH ×2 (21:51→22:05)
[2020-07-29] MEDS ORDERED: LACTATED RINGERS 500 ML IV SCH (22:00)
[2020-07-29] MEDS: GABAPENTIN 100 MG (NEURONTIN) CAP PO PRN (23:27)
[2020-07-29 23:31] VITALS: BP 119/53
[2020-07-30 03:19] VITALS: BP 139/64
[2020-07-30] MEDS: fentaNYL INJ 100 MCG/2 ML AMP IV PRN (03:34)
[2020-07-30] MEDS: NS IV 1000 ML 1,000 ML IV SCH ×4 (03:35→19:35)
[2020-07-30 06:24] LABS: POTASSIUM 3.8 MMOL/L (3.6-5.0)
[2020-07-30 06:25] LABS: CALCIUM 8.2 MG/DL (8.5-10.1)
[2020-07-30 06:29] LABS: CREATININE SERUM 4.4 MG/DL (0.60-1.30)
[2020-07-30 07:46] VITALS: BP 141/64
[2020-07-30] MEDS: inSUlin ASPART (NovoLOG) 1 UNIT/0.01 ML (CHARGE PER UNIT) SC SCH ×2 (09:24→20:54)
[2020-07-30] MEDS: SODIUM BICARBONATE 650 MG TABLET (NON-FORMULARY) PO SCH ×3 (09:26→20:26)
--- NOTE | 2020-07-30 09:35 | Physical Therapy Daily Note ---
PT Daily Note-Current Subjective Patient is more alert on this date. Sitter present due to continued confusion. Mental Status Patient Orientation: Person Attachments: IV Transfers SCALE: Activities may be completed with or without assistive devices. 4-Lcvnpwnbwb-siakgrz completes the activity by him/herself with no assistance from a helper. 5-Set-up or Clean-up Assistance-helper sets up or cleans up; patient completes activity. Murray assists only prior to or following the activity. 4-Supervision or Touching Assistance-helper provides verbal cues and/or touching/steadying and/or contact guard assistance as patient completes activit y. Assistance may be provided throughout the activity or intermittently. 3-Partial/Moderate Assistance-helper does LESS THAN HALF the effort. Murray lifts, holds or supports trunk or limbs, but provides less than half the effort. 2-Substantial/Maximal Assistance-helper does MORE THAN HALF the effort. Murray lifts or holds trunk or limbs and provides more than half the effort. 3-Hrjghtjsj-thqioy does ALL the effort. Patient does none of the effort to complete the activity. Or, the assistance of 2 or more helpers is required for the patient to complete the activity. If activity was not attempted, code reason: 7-Patient Refused. 9-Not Applicable-not attempted and the patient did not perform the activity before the current illness, exacerbation or injury. 10-Not Attempted due to Environmental Limitations-(lack of equipment, weather restraints, etc.). 88-Not Attempted due to Medical Conditions or Safety Concerns. Sit to Stand (QC): 3 Weight Bearing Right Lower Extremity: Right Weight Bearing/Tolerated Left Lower Extremity: Left Weight Bearing/Tolerated Gait Training Does the Patient Walk?: Yes Distance: 250' Walk 10 feet (QC): 3 Walk 50 ft with 2 Turns(QC): 3 Walk 150 ft (QC): 3 Gait Assistive Device: FWW NBOS with improve gait sequence and stability Assessment Patient remains up in recliner with chair alarm activated and sitter present. Improve mobility and strength on this date. PT School Resource Officer Goals School Resource Officer Goals PT School Resource Officer Goals Time Frame: Aug 07, 2020 Roll Left & Right (QC): 4 Sit to Lying (QC): 4 Lying-Sitting on Side/Bed(QC): 4 Sit to Stand (QC): 4 Chair/Zzr-za-Bpcuu Xfer(QC): 4 Toilet Transfer (QC): 4 Does the Patient Walk: Yes Walk 10 feet (QC): 4 Walk 50ft with 2 Turns (QC): 4 Walk 150 ft (QC): 4 PT Plan Treatment/Plan Treatment Plan: Continue Plan of Care Treatment Plan: Bed Mobility, Education, Functional Activity Armando, Functional Strength, Gait, Safety, Therapeutic Exercise, Transfers Treatment Duration: Aug 07, 2020 Frequency: 6 times per week Estimated Hrs Per Day: .25 hour per day Time/GCodes Time In: 830 Time Out: 838 Total Billed Treatment Time: 8 Total Billed Treatment 1 visit GT 8 min JACQUE WILSON PT Jul 30, 2020 09:35
[2020-07-30 12:00] VITALS: BP 141/84
--- NOTE | 2020-07-30 15:35 | Progress Note ---
Subjective Subjective Date Seen by Provider: Jul 30, 2020 Time Seen by Provider: 15:30 Patient alert and awake today. Cooperative. She does have a sitter. Cr starting to improve with IVF. K normal. Patient would like to do some rehab to get stronger. She reports her abdomen feels much better now that her alfaro pouch is opened up. Review of Systems General: No Chills, No Night Sweats HEENT: No Head Aches, No Visual Changes Pulmonary: No Dyspnea, No Cough Cardiovascular: No: Chest Pain, Palpitations Gastrointestinal: No: Nausea, Abdominal Pain Genitourinary: No Dysuria Musculoskeletal: No: neck pain, shoulder pain Neurological: Weakness All Other Systems Reviewed All Other Systems Reviewed: Yes (Negative excepted noted.) Objective Exam Vital Signs Vital Signs Date Time Temp Pulse Resp B/P (MAP) Pulse Ox O2 Delivery O2 Flow Rate FiO2 07/30/20 12:00 34.9 85 20 141/84 (103) 93 Room Air 07/30/20 08:00 Room Air 07/30/20 07:46 36.1 105 16 141/64 (89) 98 Room Air 07/30/20 07:00 102 07/30/20 03:19 36.5 107 20 139/64 (89) 95 Room Air 07/30/20 01:00 104 07/29/20 23:31 37.1 110 20 119/53 (75) 96 Room Air 07/29/20 20:00 Room Air 07/29/20 19:11 36.2 112 20 130/59 (82) 96 Room Air 07/29/20 19:00 113 07/29/20 18:55 Room Air I & O 07/30/20 07:00 Intake Total 3800 ml Output Total 3550 ml Balance 250 ml General Appearance: Mild Distress HEENT: PERRL/EOMI, Normal ENT Inspection Neck: Non Tender, Supple Respiratory: Chest Non Tender, Lungs Clear, Normal Breath Sounds Cardiovascular: Regular Rate, Rhythm Gastrointestinal: Normal Bowel Sounds, Non Tender, Soft Rectal: Deferred Back: Normal Inspection Extremity: Non Tender, No Calf Tenderness Neurologic/Psychiatric: Other (asleep) Skin: Warm/Dry Lymphatic: No Adenopathy Results Lab Laboratory Tests 07/29/20 19:47: Sodium Level 139, Potassium Level 4.2, Chloride Level 100, Carbon Dioxide Level 16L, Anion Gap 23H, Blood Urea Nitrogen 100*H, Creatinine 4.94H, Estimat Glomerular Filtration Rate 9, BUN/Creatinine Ratio 20, Glucose Level 184H, Calcium Level 8.4L 07/29/20 21:18: Glucometer 185H 07/30/20 05:50: Sodium Level 141, Potassium Level 3.8, Chloride Level 105, Carbon Dioxide Level 15L, Anion Gap 21H, Blood Urea Nitrogen 94H, Creatinine 4.40#H, Estimat Glomerular Filtration Rate 10, BUN/Creatinine Ratio 21, Glucose Level 144H, Calcium Level 8.2L 07/30/20 15:05: Assessment/Plan Assessment/Plan Admission Dx small bowel obstruction. Assessment and Plan Admitted for observation 07/27/20 07/28/20- Creatinine elevated to 3. Will give her a 500cc bolus and recheck bmp in AM. Continue IVF. continue with surgery recommendations of disimpacting Alfaro pouch. IVF to bring down potassium- may need to do albuterol breathing treatments, insulin/glucose, kayexalate, lasix IV 07/29/20 - Alfaro pouch has opened up- abdominal distension is down. Now she is losing a lot of fluid through Alfaro pouch. Cr elevated to almost 5. BUN 90s. (monitor output- could have upper GI bleed) Increasing IVFs. Bolus 1L LR, 1 amp of bicarb. recheck BMP this evening. changed to inpatient. 07/30/20- doing better- bowels open. Surgery holding off on irrigation. Continue IVF. Monitor UOP. Checking Cr again this afternoon it is starting to improve. K normal. IRF going to assess patient as it would improve her chances of safe return home. Dispo: guarded due to patient's multiple health issues. Patient's daughter would like her to have [facility] when she goes home. -keep appt with neurologist Dr. Calderon September 2020. Problems: (1) Acute on chronic renal failure (2) SBO (small bowel obstruction) Assessment & Plan: Dr Cole consulted. (3) fecal impaction of Alfaro Pouch (4) Impacted stool in intestine (5) Hyperkalemia (6) Diabetes mellitus type II, uncontrolled Assessment & Plan: sliding scale insulin- will need to change to her home regiment when she is taking in food. Admission Dx small bowel obstruction. Clinical Quality Measures Admission Status Admission Dx small bowel obstruction. CAMILLE MENDEZ MD Jul 30, 2020 15:34
[2020-07-30 15:37] LABS: CALCIUM 8.4 MG/DL (8.5-10.1); CREATININE SERUM 4.27 MG/DL (0.60-1.30); POTASSIUM 3.8 MMOL/L (3.6-5.0)
[2020-07-30 15:53] VITALS: BP 156/71
[2020-07-30] MEDS ORDERED: LORazepam INJ 2 MG/ML (ATIVAN) VIAL ONE (16:47)
--- NOTE | 2020-07-30 16:53 | Progress Note - Surgery ---
Subjective Date Seen by a Provider: Jul 30, 2020 Time Seen by a Provider: 13:11 Subjective/Events-last exam Doing well. No abdominal pain. Frausto pouch functioning. Denies n/v fever sweats chills shortness of breath or chest pain. CR improving Objective Exam Vital Signs Date Time Temp Pulse Resp B/P (MAP) Pulse Ox O2 Delivery O2 Flow Rate FiO2 07/30/20 15:53 36.1 109 18 156/71 (99) 97 Room Air 07/30/20 12:00 34.9 85 20 141/84 (103) 93 Room Air 07/30/20 08:00 Room Air 07/30/20 07:46 36.1 105 16 141/64 (89) 98 Room Air 07/30/20 07:00 102 07/30/20 03:19 36.5 107 20 139/64 (89) 95 Room Air 07/30/20 01:00 104 07/29/20 23:31 37.1 110 20 119/53 (75) 96 Room Air 07/29/20 20:00 Room Air 07/29/20 19:11 36.2 112 20 130/59 (82) 96 Room Air 07/29/20 19:00 113 07/29/20 18:55 Room Air I & O 07/30/20 07:00 Intake Total 3800 ml Output Total 3550 ml Balance 250 ml Capillary Refill : Less Than 3 Seconds General Appearance: No Apparent Distress, WD/WN HEENT: PERRL/EOMI, Normal ENT Inspection Neck: Non Tender, Supple Respiratory: Chest Non Tender, No Accessory Muscle Use, No Respiratory Distress Cardiovascular: Regular Rate, Rhythm, No JVD Gastrointestinal: normal bowel sounds, soft, tenderness Extremity: Non Tender, No Calf Tenderness Neurologic/Psychiatric: Alert, Normal Mood/Affect Skin: Normal Color, Warm/Dry Lymphatic: No Adenopathy Results Lab Laboratory Tests 07/29/20 19:47: Sodium Level 139, Potassium Level 4.2, Chloride Level 100, Carbon Dioxide Level 16L, Anion Gap 23H, Blood Urea Nitrogen 100*H, Creatinine 4.94H, Estimat Glomerular Filtration Rate 9, BUN/Creatinine Ratio 20, Glucose Level 184H, Calcium Level 8.4L 07/29/20 21:18: Glucometer 185H 07/30/20 05:50: Sodium Level 141, Potassium Level 3.8, Chloride Level 105, Carbon Dioxide Level 15L, Anion Gap 21H, Blood Urea Nitrogen 94H, Creatinine 4.40#H, Estimat Glomerular Filtration Rate 10, BUN/Creatinine Ratio 21, Glucose Level 144H, Calcium Level 8.2L 07/30/20 15:05: Sodium Level 137, Potassium Level 3.8, Chloride Level 103, Carbon Dioxide Level 16L, Anion Gap 18H, Blood Urea Nitrogen 87H, Creatinine 4.27H, Estimat Glomer ular Filtration Rate 10, BUN/Creatinine Ratio 20, Glucose Level 212H, Calcium Level 8.4L Assessment/Plan Assessment/Plan Assessment/Plan impacted kock pouch working without difficulty now, continue her routine for drainage, diet as tolerates. sbo resolved medical management will sign off call if needed. ORIANA PATTERSON DO Jul 30, 2020 16:53
[2020-07-30] MEDS: LORazepam INJ 2 MG/ML (ATIVAN) VIAL IVP PRN (17:38)
[2020-07-30 19:22] VITALS: BP 177/73
[2020-07-30 23:24] VITALS: BP 156/76
[2020-07-30] MEDS: GABAPENTIN 100 MG (NEURONTIN) CAP PO PRN (23:42)
[2020-07-31] MEDS: NS IV 1000 ML 1,000 ML IV SCH ×3 (01:26→21:14)
[2020-07-31 04:08] VITALS: BP 143/68
[2020-07-31 08:00] VITALS: BP 174/84
[2020-07-31 08:12] LABS: HEMATOCRIT 34 % (35-52); HEMOGLOBIN 10.4 g/dL (11.5-16.0); MEAN CORPUSCULAR HEMOGLOBIN 30 pg (25-34); MEAN CORPUSCULAR HGB CONC 31 g/dL (32-36); MEAN CORPUSCULAR VOLUME 99 fL (80-99); MEAN PLATELET VOLUME 11.9 fL (9.0-12.2); PLATELET COUNT 246 10^3/uL (130-400); WHITE BLOOD COUNT 14.2 10^3/uL (4.3-11.0)
[2020-07-31 08:33] LABS: CALCIUM 8.7 MG/DL (8.5-10.1); CREATININE SERUM 3.26 MG/DL (0.60-1.30); POTASSIUM 3.5 MMOL/L (3.6-5.0)
[2020-07-31] MEDS: fentaNYL INJ 100 MCG/2 ML AMP IV PRN ×4 (08:44→21:16)
[2020-07-31] MEDS: inSUlin ASPART (NovoLOG) 1 UNIT/0.01 ML (CHARGE PER UNIT) SC SCH ×2 (09:40→20:29)
[2020-07-31] MEDS: SODIUM BICARBONATE 650 MG TABLET (NON-FORMULARY) PO SCH ×3 (10:05→20:58)
--- NOTE | 2020-07-31 11:12 | Progress Note - Hospitalist ---
Subjective HPI/CC On Admission Date Seen by Provider: Jul 31, 2020 Time Seen by Provider: 11:02 Subjective/Events-last exam Pt is sleeping soundly. Just received fentanyl before I entered room though. Easily awakes but asks to go back to sleep. Denies any current complaints. Objective Exam Vital Signs Vital Signs Date Time Temp Pulse Resp B/P (MAP) Pulse Ox O2 Delivery O2 Flow Rate FiO2 07/31/20 08:00 36.1 92 20 174/84 (114) 98 Room Air Capillary Refill : Less Than 3 Seconds General Appearance: No Apparent Distress, Chronically ill, Thin Respiratory: Lungs Clear, No Respiratory Distress Cardiovascular: Regular Rate, Rhythm, No Murmur Gastrointestinal: Normal Bowel Sounds, Soft Neurologic/Psychiatric: Alert, Oriented x3 (but drowsy) Results/Procedures Lab Laboratory Tests 07/30/20 15:05 07/31/20 08:00 Patient resulted labs reviewed. Assessment/Plan Assessment and Plan Assess & Plan/Chief Complaint SBO now resolved Surgery consulted, appreciate recs Remains on CLD SANTO Creatinine was up to 4.92 but now down to 3.27 Will decrease fluids some due to response and hyperchloremic acidosis debility pt/ot IRF eval IDDMII BS well controlled with sliding scale When able to take normal diet will resume home insulin regimen TITA HUTCHISON MD Jul 31, 2020 11:11
[2020-07-31 12:00] VITALS: BP 184/89
--- NOTE | 2020-07-31 12:40 | Occupational Therapy Eval ---
OT Evaluation-General/PLF Medical Diagnosis Admission Date Jul 29, 2020 at 13:35 Medical Diagnosis: SBO/fecal impaction of Frausto pouch Onset Date: Jul 27, 2020 Therapy Diagnosis Therapy Diagnosis: decr self care, weakness, decr funct mobility, decr act tolerance Height/Weight Height (Feet): 5 Height (Inches): 6.00 Weight (Pounds): 134 Weight (Ounces): 0.5 Precautions Precautions/Isolations: Fall Prevention, Standard Precautions Referral Physician: Sheldon Referral Reason: Evaluation/Treatment Medical History Pertinent Medical History: DM (uncontrolled), Renal Insufficiency Additional Medical History Colectomy, Kock pouch, stoma closure. Ulcerative colitis. Schizophrenia, paranoid behaviors Current History Admitted through ED with abdominal pain, GI problems. Small bowel obstruction and impacted stool, managed without surgery. Has Kock pouch. Uncontrolled DM. [facility] Reviewed History: Yes Social History Home: Single Level Current Living Status: Spouse ADL-Prior Level of Function SCALE: Activities may be completed with or without assistive devices. 8-Nnphhshhwj-lorpqjp completes the activity by him/herself with no assistance from a helper. 5-Set-up or Clean-up Assistance-helper sets up or cleans up; patient completes activity. Willards assists only prior to or following the activity. 4-Supervision or Touching Assistance-helper provides verbal cues and/or touching/steadying and/or contact guard assistance as patient completes activity. Assistance may be provided throughout the activity or intermittently. 3-Partial/Moderate Assistance-helper does LESS THAN HALF the effort. Willards lifts, holds or supports trunk or limbs, but provides less than half the effort. 2-Substantial/Maximal Assistance-helper does MORE THAN HALF the effort. Willards lifts or holds trunk or limbs and provides more than half the effort. 5-Awlzdxvof-uoshge does ALL the effort. Patient does none of the effort to complete the activity. Or, the assistance of 2 or more helpers is required for the patient to complete the activity. If activity was not attempted, code reason: 7-Patient Refused. 9-Not Applicable-not attempted and the patient did not perform the activity before the current illness, exacerbation or injury. 10-Not Attempted due to Environmental Limitations-(lack of equipment, weather restraints, etc.). 88-Not Attempted due to Medical Conditions or Safety Concerns. ADL PLOF Comments Pt reported that she was previously able to care for her basic needs. She said that she did most of the laundry and cleaning and that her helps with cooking. PT angela reported that prior functional status was bed mobility 3, transfers 3, gait 3, used FWW and help. (QC codes) Self Care: Needed Some Help OT Current Status Subjective Pt seen in room, up in bed, agreeable to OT. No pain mentioned. Appearance Fearful and confused. Oriented to name, and location. Has sitter due to decreased safety awareness Mental Status/Objective Attachments: IV Current Glasses/Contacts: Yes Hearing Aids: No Dentures/Partials: No Hand Dominance: Right Upper Extremity ROM Grossly WFL bilat Upper Extremity Strength Grossly 3/5 bilat ADL-Treatment ADL-Current Pt had just been toileted by aide. He reported she walks with hand hold assist to bathroom, needs help managing clothes, she can manage hygiene. She was able to get a drink in her room. Pt said that she felt like she was going to vomit and provided with basin. She has walked 175" with FWW with PT with mod-min assist (3). Pt fearful of OT leaving room and aide pointed out to her (sitter). Aide also notified Education OT Patient Education: Progress toward Goal/Update tx plan, Purpose of tx/functional activities Teaching Recipient: Patient Teaching Methods: Discussion Response to Teaching: Verbalize Understanding, Reinforcement Needed OT Usp Goals Usp Goals Time Frame: Aug 07, 2020 Eating (QC): 6 Oral Hygiene (QC): 5 Toileting Hygiene (QC): 5 Shower/Bathe Self (QC): 5 Upper Body Dressing (QC): 5 Lower Body Dressing (QC): 5 On/Off Footwear (QC): 5 Additional Goals: 1-Demonstrate ADL Tasks, 2-Verbalize Understanding, 3-ImproveStrength/Armando 1=Demonstrate adherence to instructed precautions during ADL tasks. 2=Patient will verbalize/demonstrate understanding of assistive devices/modifications for ADL. 3=Patient will improve strength/tolerance for activity to enable patient to perform ADL's. OT Education/Plan Problem List/Assessment Assessment: Decreased Safety Aware, Decreased UE Strength, Dependent Transfers, Impaired Bed Mobility, Impaired Self-Care Skills Pt would benefit from skilled OT to increase her independence in basic self care. Discharge Recommendations Plan/Recommendations: Continue POC Treatment Plan/Plan of Care Treatment,Training & Education: Yes Patient would benefit from OT for education, treatment and training to promote independence in ADL's, mobility, safety and/or upper extremity function for ADL's. Plan of Care: ADL Retraining, Functional Mobility, UE Funct Exercise/Act Treatment Duration: Aug 07, 2020 Frequency: 5 times per week Estimated Hrs Per Day: .25 hour per day (.25 to .5) Agreement: Yes Rehab Potential: Fair Time/GCodes Start Time: 11:50 Stop Time: 12:02 Total Time Billed (hr/min): 12 Billed Treatment Time visit, 12 minutes evaluation moderate intensity MIGUELITO CAZARES OT Jul 31, 2020 12:40
--- NOTE | 2020-07-31 13:26 | Physical Therapy Daily Note ---
PT Daily Note-Current Subjective Pt reluctant to comply due to pt being anxious and pain with movement. Pt agreeable with max encouragment to try ther ex in bed. Pain rated 8-9/10 (B) LEs. Pt asking "Please don't leave me." Pt okay with this WORKFORCE MANAGEMENT ANALYST leaving once she was aware her nurse aid was close by. Transfers SCALE: Activities may be completed with or without assistive devices. 7-Wzyqpjleqv-riawyvr completes the activity by him/herself with no assistance from a helper. 5-Set-up or Clean-up Assistance-helper sets up or cleans up; patient completes activity. Felch assists only prior to or following the activity. 4-Supervision or Touching Assistance-helper provides verbal cues and/or t ouching/steadying and/or contact guard assistance as patient completes activity. Assistance may be provided throughout the activity or intermittently. 3-Partial/Moderate Assistance-helper does LESS THAN HALF the effort. Felch lifts, holds or supports trunk or limbs, but provides less than half the effort. 2-Substantial/Maximal Assistance-helper does MORE THAN HALF the effort. Felch lifts or holds trunk or limbs and provides more than half the effort. 2-Dirnkctvq-mhdzvi does ALL the effort. Patient does none of the effort to complete the activity. Or, the assistance of 2 or more helpers is required for the patient to complete the activity. If activity was not attempted, code reason: 7-Patient Refused. 9-Not Applicable-not attempted and the patient did not perform the activity before the current illness, exacerbation or injury. 10-Not Attempted due to Environmental Limitations-(lack of equipment, weather restraints, etc.). 88-Not Attempted due to Medical Conditions or Safety Concerns. Weight Bearing Right Lower Extremity: Right Weight Bearing/Tolerated Left Lower Extremity: Left Weight Bearing/Tolerated Exercises Supine Ex: Ankle pumps, Quad Set, Heel Slides, Short Arc Quads, Hip abd/add Supine Reps: 15 Assessment Current Status: Poor Progress Poor tolerance to treatment. Pt c/o pain with all therex in (B) hips. Pt initiated ther ex with AAROM...Pt allowed this WORKFORCE MANAGEMENT ANALYST to complete all ther ex PROM. Limited by pain and anxiousness. Pt resting comfortably with call light and all needs met. PT Network Relations Consultant Goals Network Relations Consultant Goals PT Network Relations Consultant Goals Time Frame: Aug 07, 2020 Roll Left & Right (QC): 4 Sit to Lying (QC): 4 Lying-Sitting on Side/Bed(QC): 4 Sit to Stand (QC): 4 Chair/Dou-lz-Cwdjb Xfer(QC): 4 Toilet Transfer (QC): 4 Does the Patient Walk: Yes Walk 10 feet (QC): 4 Walk 50ft with 2 Turns (QC): 4 Walk 150 ft (QC): 4 PT Plan Treatment/Plan Treatment Plan: Continue Plan of Care Treatment Plan: Bed Mobility, Education, Functional Activity Armando, Functional Strength, Gait, Safety, Therapeutic Exercise, Transfers Treatment Duration: Aug 07, 2020 Frequency: 6 times per week Estimated Hrs Per Day: .25 hour per day Time/GCodes Time In: 1200 Time Out: 1215 Total Billed Treatment Time: 15 Total Billed Treatment 1, ther ex 15' GABI LAM CPTA Jul 31, 2020 13:26
[2020-07-31 15:16] VITALS: BP 168/77
[2020-07-31] MEDS: GABAPENTIN 100 MG (NEURONTIN) CAP PO PRN (18:52)
[2020-07-31 20:19] VITALS: BP 189/88
[2020-07-31] MEDS: LORazepam INJ 2 MG/ML (ATIVAN) VIAL IVP PRN (22:01)
[2020-07-31 22:15] VITALS: BP 197/74
[2020-07-31] MEDS ORDERED: NITROGLYCERIN 2% OINT 1 GM UNIT DOSE PACKET ONE (22:30)
[2020-07-31] MEDS: NITROGLYCERIN 2% OINT 1 GM UNIT DOSE PACKET TOP PRN (22:37)
[2020-07-31] MEDS: HALOPERIDOL 5 MG/ML (HALDOL) VIAL IM PRN (23:00)
[2020-08-01] VITALS (8 sets, daily range): BP systolic 106–203; BP diastolic 66–83
[2020-08-01] MEDS ORDERED: NITROGLYCERIN 2% OINT 1 GM UNIT DOSE PACKET TOP SCH
[2020-08-01] MEDS: fentaNYL INJ 100 MCG/2 ML AMP IV PRN ×2 (00:41→08:42)
[2020-08-01 05:16] LABS: HEMATOCRIT 27 % (35-52); HEMOGLOBIN 8.6 g/dL (11.5-16.0); MEAN CORPUSCULAR HEMOGLOBIN 30 pg (25-34); MEAN CORPUSCULAR HGB CONC 32 g/dL (32-36); MEAN CORPUSCULAR VOLUME 95 fL (80-99); MEAN PLATELET VOLUME 11.3 fL (9.0-12.2); PLATELET COUNT 219 10^3/uL (130-400); WHITE BLOOD COUNT 12.5 10^3/uL (4.3-11.0)
[2020-08-01 05:27] LABS: POTASSIUM 3.1 MMOL/L (3.6-5.0)
[2020-08-01 05:28] LABS: CALCIUM 7.7 MG/DL (8.5-10.1)
[2020-08-01 05:32] LABS: CREATININE SERUM 2.36 MG/DL (0.60-1.30)
[2020-08-01] MEDS: NS IV 1000 ML 1,000 ML IV SCH ×3 (06:57→18:46)
[2020-08-01] MEDS: inSUlin ASPART (NovoLOG) 1 UNIT/0.01 ML (CHARGE PER UNIT) SC SCH ×2 (08:36→21:38)
[2020-08-01] MEDS: SODIUM BICARBONATE 650 MG TABLET (NON-FORMULARY) PO SCH ×3 (08:42→19:29)
[2020-08-01] MEDS: GABAPENTIN 100 MG (NEURONTIN) CAP PO PRN (08:42)
[2020-08-01] MEDS ORDERED: KCL 20 MEQ TAB (K-DUR) PO ONE (11:00)
[2020-08-01] MEDS ORDERED: ACETAMINOPHEN 500 MG TAB (TYLENOL) PO PRN (13:00)
[2020-08-01] MEDS ORDERED: LORazepam 0.5 MG (ATIVAN) TABLET PO PRN (13:00)
--- NOTE | 2020-08-01 13:00 | Progress Note - Hospitalist ---
Subjective HPI/CC On Admission Date Seen by Provider: Aug 01, 2020 Time Seen by Provider: 12:54 Subjective/Events-last exam Pt quite sleepy again today when I entered room. Again just shortly after pain meds. Also did not do well with PT yesterday but was able to get up an ambulate in the beltran in the afternoon. Objective Exam Vital Signs Vital Signs Date Time Temp Pulse Resp B/P (MAP) Pulse Ox O2 Delivery O2 Flow Rate FiO2 08/01/20 12:51 93 08/01/20 12:34 36.4 20 154/77 (102) 97 Room Air Capillary Refill : Less Than 3 Seconds General Appearance: No Apparent Distress, Other (drowsy) Respiratory: Lungs Clear, No Respiratory Distress Cardiovascular: Regular Rate, Rhythm, No Murmur Gastrointestinal: Normal Bowel Sounds, Soft Neurologic/Psychiatric: Alert, Oriented x3 (easily awakens but falls back asleep quickly) Results/Procedures Lab Laboratory Tests 08/01/20 05:06 Patient resulted labs reviewed. Assessment/Plan Assessment and Plan Assess & Plan/Chief Complaint SBO now resolved Surgery consulted, appreciate recs Remains on CLD, advance to regular SANTO Creatinine was up to 4.92 but now down to 3.27 Will decrease fluids some due to response and hyperchloremic acidosis debility pt/ot IRF eval I believe IV pain and anxiety medicines are contributing Switch to oral ativan and oral hydrocodone. DC IV ativan. Continue Fentanyl for breakthrough only. Add tylenol as well IDDMII BS well controlled with sliding scale When able to take normal diet will resume home insulin regimen TITA HUTCHISON MD Aug 01, 2020 13:00
[2020-08-01] MEDS: HYDROcodone/APAP 5 MG/325 MG (LORTAB) TAB PO PRN ×3 (14:41→23:37)
[2020-08-01] MEDS: ONDANSETRON 4 MG/2 ML (SDV) Z0FRAN IV PRN (23:39)
[2020-08-01] MEDS: NITROGLYCERIN 2% OINT 1 GM UNIT DOSE PACKET TOP PRN (23:45)
[2020-08-02] VITALS (7 sets, daily range): BP systolic 164–196; BP diastolic 75–104
[2020-08-02] MEDS ORDERED: hydrALAZINE (APESOLINE) 20 MG/ML VIAL IV ONE (01:30)
[2020-08-02] MEDS: fentaNYL INJ 100 MCG/2 ML AMP IV PRN (02:07)
[2020-08-02] MEDS: HYDROcodone/APAP 5 MG/325 MG (LORTAB) TAB PO PRN ×2 (06:41→14:04)
[2020-08-02 06:44] LABS: HEMATOCRIT 30 % (35-52); HEMOGLOBIN 9.4 g/dL (11.5-16.0); MEAN CORPUSCULAR HEMOGLOBIN 31 pg (25-34); MEAN CORPUSCULAR HGB CONC 32 g/dL (32-36); MEAN CORPUSCULAR VOLUME 96 fL (80-99); MEAN PLATELET VOLUME 11.3 fL (9.0-12.2); PLATELET COUNT 218 10^3/uL (130-400); WHITE BLOOD COUNT 17.6 10^3/uL (4.3-11.0)
[2020-08-02 07:01] LABS: POTASSIUM 3.4 MMOL/L (3.6-5.0)
[2020-08-02 07:06] LABS: CREATININE SERUM 2.11 MG/DL (0.60-1.30)
[2020-08-02] MEDS: inSUlin ASPART (NovoLOG) 1 UNIT/0.01 ML (CHARGE PER UNIT) SC SCH ×2 (07:22→08:50)
--- NOTE | 2020-08-02 07:25 | Progress Note ---
Subjective Subjective Date Seen by Provider: Aug 02, 2020 Blood pressure elevated- 1x dose of hydralazine given. Will restart her losartan. Cr improving. K a little low. will replace Review of Systems General: No Chills, No Night Sweats HEENT: No Head Aches, No Visual Changes Pulmonary: No Dyspnea, No Cough Cardiovascular: No: Chest Pain, Palpitations Gastrointestinal: No: Nausea, Abdominal Pain Genitourinary: No Dysuria Musculoskeletal: No: neck pain, shoulder pain Neurological: Weakness All Other Systems Reviewed All Other Systems Reviewed: Yes (Negative excepted noted.) Objective Exam Vital Signs Vital Signs Date Time Temp Pulse Resp B/P (MAP) Pulse Ox O2 Delivery O2 Flow Rate FiO2 08/02/20 03:28 36.6 107 20 185/75 (111) 97 Room Air 08/02/20 01:21 194/80 (118) 08/02/20 01:12 78 196/104 (134) 08/02/20 01:00 96 08/01/20 23:20 37.1 103 18 203/71 (115) 99 Room Air 08/01/20 20:25 153/80 (104) 08/01/20 19:53 36.6 103 18 193/80 (117) 97 Room Air 08/01/20 19:30 Room Air 08/01/20 19:00 105 08/01/20 15:16 36.4 99 14 106/66 (79) 97 Room Air 08/01/20 12:51 93 08/01/20 12:34 36.4 73 20 154/77 (102) 97 Room Air 08/01/20 08:51 Room Air 08/01/20 08:13 36.7 100 20 173/83 (113) 97 Room Air I & O 08/02/20 07:00 Intake Total 1320 ml Output Total 2075 ml Balance -755 ml General Appearance: No Apparent Distress, Other (drowsy) HEENT: PERRL/EOMI, Normal ENT Inspection Neck: Non Tender, Supple Respiratory: Lungs Clear, No Respiratory Distress Cardiovascular: Regular Rate, Rhythm, No Murmur Gastrointestinal: Normal Bowel Sounds, Soft Rectal: Deferred Back: Normal Inspection Extremity: Non Tender, No Calf Tenderness Neurologic/Psychiatric: Alert, Oriented x3 (easily awakens but falls back asleep quickly) Skin: Normal Color, Warm/Dry Lymphatic: No Adenopathy Results Lab Laboratory Tests 08/01/20 09:26: Glucometer 211H 08/01/20 20:35: Glucometer 242H 08/02/20 06:35: White Blood Count 17.6H, Red Blood Count 3.08L, Hemoglobin 9.4L, Hematocrit 30L, Mean Corpuscular Volume 96, Mean Corpuscular Hemoglobin 31, Mean Corpuscular Hemoglobin Concent 32, Red Cell Distribution Width 13.3, Platelet Count 218, Mean Platelet Volume 11.3, Sodium Level 140, Potassium Level 3.4L, Chloride Level 111H, Carbon Dioxide Level 17L, Anion Gap 12, Blood Urea Nitrogen 32H, Creatinine 2.11H, Estimat Glomerular Filtration Rate 23, BUN/Creatinine Ratio 15, Glucose Level 238H, Calcium Level 8.0L Assessment/Plan Assessment/Plan Admission Dx small bowel obstruction. Assessment and Plan Admitted for observation 07/27/20 07/28/20- Creatinine elevated to 3. Will give her a 500cc bolus and recheck bmp in AM. Continue IVF. continue with surgery recommendations of disimpacting Frausto pouch. IVF to bring down potassium- may need to do albuterol breathing treatments, insulin/glucose, kayexalate, lasix IV 07/29/20 - Frausto pouch has opened up- abdominal distension is down. Now she is losing a lot of fluid through Frausto pouch. Cr elevated to almost 5. BUN 90s. (monitor output- could have upper GI bleed) Increasing IVFs. Bolus 1L LR, 1 amp of bicarb. recheck BMP this evening. changed to inpatient. 07/30/20- doing better- bowels open. Surgery holding off on irrigation. Continue IVF. Monitor UOP. Checking Cr again this afternoon it is starting to improve. K normal. IRF going to assess patient as it would improve her chances of safe return home. 07/31,- Cr continues to improve. 08/02/20- Blood pressure elevated- 1x dose of hydralazine given. Will restart her losartan. Cr improving. K a little low. will replace. WBC elevated. Will continue to trend. IRF to re-evaluate. Other option would be to go home today with home health. Dispo: guarded due to patient's multiple health issues. But doing well this admission. Patient's daughter would like her to have [facility] when she goes home. -keep appt with neurologist Dr. Calderon September 2020. Problems: (1) Acute on chronic renal failure (2) SBO (small bowel obstruction) Assessment & Plan: Dr Cole consulted. (3) fecal impaction of Frausto Pouch (4) Impacted stool in intestine (5) Diabetes mellitus type II, uncontrolled Assessment & Plan: sliding scale insulin- will need to change to her home regiment when she is taking in food. (6) Hypokalemia (7) HTN (hypertension) (8) Normal anion gap metabolic acidosis Admission Dx small bowel obstruction. Clinical Quality Measures Admission Status Admission Dx small bowel obstruction. CAMILLE MENDEZ MD Aug 02, 2020 07:25
[2020-08-02] MEDS: SODIUM BICARBONATE 650 MG TABLET (NON-FORMULARY) PO SCH ×2 (08:49→13:23)
[2020-08-02] MEDS: GABAPENTIN 100 MG (NEURONTIN) CAP PO PRN (08:49)
[2020-08-02] MEDS ORDERED: LOSARTAN 100 MG (COZAAR) TABLET PO ONE (09:00)
[2020-08-02] MEDS ORDERED: KCL 10 MEQ TAB (MICRO K) PO SCH (09:00)
[2020-08-02] MEDS: NS IV 1000 ML 1,000 ML IV SCH (09:47)
--- NOTE | 2020-08-02 10:16 | Physical Therapy Daily Note ---
PT Daily Note-Current Subjective Patient is very agreeable to participate with therapy. Live sitter present. Mental Status Patient Orientation: Confused Attachments: IV Transfers SCALE: Activities may be completed with or without assistive devices. 6-Jilpphpicf-dceielz completes the activity by him/herself with no assistance from a helper. 5-Set-up or Clean-up Assistance-helper sets up or cleans up; patient completes activity. [place] assists only prior to or following the activity. 4-Supervision or Touching Assistance-helper provides verbal cues and/or touching/steadying and/or contact guard assistance as patient completes activit y. Assistance may be provided throughout the activity or intermittently. 3-Partial/Moderate Assistance-helper does LESS THAN HALF the effort. [place] lifts, holds or supports trunk or limbs, but provides less than half the effort. 2-Substantial/Maximal Assistance-helper does MORE THAN HALF the effort. [place] lifts or holds trunk or limbs and provides more than half the effort. 9-Meffszelc-santpc does ALL the effort. Patient does none of the effort to complete the activity. Or, the assistance of 2 or more helpers is required for the patient to complete the activity. If activity was not attempted, code reason: 7-Patient Refused. 9-Not Applicable-not attempted and the patient did not perform the activity before the current illness, exacerbation or injury. 10-Not Attempted due to Environmental Limitations-(lack of equipment, weather restraints, etc.). 88-Not Attempted due to Medical Conditions or Safety Concerns. Lying to Sitting/Side of Bed(Q: 5 Sit to Stand (QC): 4 Chair/Koo-vz-Nnile Xfer(QC): 4 Weight Bearing Right Lower Extremity: Right Weight Bearing/Tolerated Left Lower Extremity: Left Weight Bearing/Tolerated Gait Training Does the Patient Walk?: Yes Distance: 250' Walk 10 feet (QC): 4 Walk 50 ft with 2 Turns(QC): 4 Walk 150 ft (QC): 4 Gait Assistive Device: FWW NBOS,shuffle gait sequence/short step length Assessment Patient is up in recliner with chair alarm and live sitter. Patient tolerated treatment. Nursing to continue to ambulate with patient PRN. VC's for step length. PT Shelter Goals Shelter Goals PT Shelter Goals Time Frame: Aug 07, 2020 Roll Left & Right (QC): 4 Sit to Lying (QC): 4 Lying-Sitting on Side/Bed(QC): 4 Sit to Stand (QC): 4 Chair/Jkr-bx-Wsxzy Xfer(QC): 4 Toilet Transfer (QC): 4 Does the Patient Walk: Yes Walk 10 feet (QC): 4 Walk 50ft with 2 Turns (QC): 4 Walk 150 ft (QC): 4 PT Plan Treatment/Plan Treatment Plan: Continue Plan of Care Treatment Plan: Bed Mobility, Education, Functional Activity Arm[place], Functional Strength, Gait, Safety, Therapeutic Exercise, Transfers Treatment Duration: Aug 07, 2020 Frequency: 6 times per week Estimated Hrs Per Day: .25 hour per day Time/GCodes Time In: 855 Time Out: 907 Total Billed Treatment Time: 12 Total Billed Treatment 1 visit GT 12 min JACQUE WILSON PT Aug 02, 2020 10:16
--- NOTE | 2020-08-02 12:02 | Occupational Ther Daily Note ---
OT Current Status-Daily Note Subjective Pt ambulating in halls with nursing, agreeable to OT Tx. Mental Status/Objective Patient Orientation: Normal For Age ADL-Treatment Therapy Code Descriptions/Definitions Functional [place] Measure: 0=Not Assessed/NA 4=Minimal Assistance 1=Total Assistance 5=Supervision or Setup 2=Maximal Assistance 6=Modified [place] 3=Moderate Assistance 7=Complete IndependenceSCALE: Activities may be completed with or without assistive devices. 9-Iiwjbbtwwa-lalrqbx completes the activity by him/herself with no assistance from a helper. 5-Set-up or Clean-up Assistance-helper sets up or cleans up; patient completes activity. [place] assists only prior to or following the activity. 4-Supervision or Touching Assistance-helper provides verbal cues and/or touching/steadying and/or contact guard assistance as patient completes activity. Assistance may be provided throughout the activity or intermittently. 3-Partial/Moderate Assistance-helper does LESS THAN HALF the effort. [place] lifts, holds or supports trunk or limbs, but provides less than half the effort. 2-Substantial/Maximal Assistance-helper does MORE THAN HALF the effort. [place] lifts or holds trunk or limbs and provides more than half the effort. 1-Ihugyfrzz-xveosn does ALL the effort. Patient does none of the effort to complete the activity. Or, the assistance of 2 or more helpers is required for the patient to complete the activity. If activity was not attempted, code reason: 7-Patient Refused. 9-Not Applicable-not attempted and the patient did not perform the activity before the current illness, exacerbation or injury. 10-Not Attempted due to Environmental Limitations-(lack of equipment, weather restraints, etc.). 88-Not Attempted due to Medical Conditions or Safety Concerns. Toileting Hygiene (QC): 2 (assist managing pants up/down, pt able to perform pericare) Other Treatment Pt ambulating in beltran with nursing/sitter, agreeable to OT tx. Pt returned to room with hand held assistance. Pt agreeable to brushing her teeth, performing functional mobility into bathroom, pt indicates need to toilet, transferred to toilet, CGA. Pt completed toileting, then stood at sink to wash hands, CGA. Pt states fatigue, requesting to sit down, CGA to transfer to recliner. Pt did not want to brush teeth at this time due to fatigue/weakness. OT assisted pt with positioning to comfort. Post tx, pt seated in recliner, call light in reach and all needs met, nurse/sitter present. Education OT Patient Education: Correct positioning, Modified ADL techniques, Progress toward Goal/Update tx plan, Purpose of tx/functional activities, Rehab process Teaching Recipient: Patient Teaching Methods: Discussion Response to Teaching: Verbalize Understanding OT Skilled Nursing Goals [place] Goals Time Frame: Aug 07, 2020 Eating (QC): 6 Oral Hygiene (QC): 5 Toileting Hygiene (QC): 5 Shower/Bathe Self (QC): 5 Upper Body Dressing (QC): 5 Lower Body Dressing (QC): 5 On/Off Footwear (QC): 5 Additional Goals: 1-Demonstrate ADL Tasks, 2-Verbalize Understanding, 3- ImproveStrength/[place] 1=Demonstrate adherence to instructed precautions during ADL tasks. 2=Patient will verbalize/demonstrate understanding of assistive devices/modifications for ADL. 3=Patient will improve strength/tolerance for activity to enable patient to perform ADL's. OT Education/Plan Problem List/Assessment Assessment: Decreased Activ Tolerance, Decreased UE Strength, Impaired Funct Balance, Impaired I ADL's Pt would benefit from skilled OT to increase her independence in basic self care. Discharge Recommendations Plan/Recommendations: Continue POC Treatment Plan/Plan of Care Patient would benefit from OT for education, treatment and training to promote independence in ADL's, mobility, safety and/or upper extremity function for ADL's. Plan of Care: ADL Retraining, Functional Mobility, UE Funct Exercise/Act Treatment Duration: Aug 07, 2020 Frequency: 5 times per week Estimated Hrs Per Day: .25 hour per day (.25 to .5) Agreement: Yes Rehab Potential: Fair Time/GCodes Start Time: 11:35 Stop Time: 11:52 Total Time Billed (hr/min): 17 Billed Treatment Time 1, ADL SHONA MONTEJO OT Aug 02, 2020 12:02
--- NOTE | 2020-08-02 13:16 | D/C HH Face to Face Order ---
D/C Face to Face Orders Instructions for Patient [facility] Physician to follow Patient: Diego Mendez MD Discharge Diet for Home: Regular Diet Patient Problems: small bowel obstruction acute on chronic kidney failure- improved hypokalemia weakness/debility schizoprenia- paranoia Patient Data-Allergies,Ht & Wt Patient Allergies: Coded Allergies: Sulfa (Sulfonamide Antibiotics) (Verified Allergy, Unknown, 06/11/06) iodine (Verified Allergy, Unknown, 01/17/20) Height (Feet): 5 Height (Inches): 6.00 Weight (Pounds): 134 Weight (Ounces): 0.5 Home Health Need/Face to Face Date of Face to Face: Aug 02, 2020 Clinical Findings: Generalized weakness and fatigue, Instability, Muscle weakness, Unsteady gait I have seen Pt doei-aq-qnji: Yes Discharged To: Home Diagnosis/Conditions: small bowel obstruction acute on chronic kidney failure- improved hypokalemia weakness/debility schizoprenia- paranoia Problems/Diagnosis/Condition: (1) Diabetes mellitus type 2 in nonobese (2) Paranoid schizophrenia (3) Acute on chronic renal failure (4) Hypokalemia (5) HTN (hypertension) (6) SBO (small bowel obstruction) Patient is Homebound due to: CognItive deficits, Valerie fall risk due to instabilty, Muscle weakness Homebound Status Due to the above stated illness, injury or surgical procedure (medical condition or diagnosis) and associated clinical findings, the patient is homebound because of his/her inability to leave home except with aid of a supportive device and/or person AND leaving the home requires a considerable and taxing effort or is medically contraindicated. Pt req the following assistanc: [facility] Nursing Orders Home Health Services Order: Nursing Services, [employer]-Evaluate & Treat, Physical Therapy-Evaluate & Treat Therapy Orders Therapy Orders: Physical Therapy Therapy Specific Orders: Teach strategies/cognitive deficits, Teach enviro modifications/safety, Gait training, Increase strength/endurance Certify Stmt I certify that this patient is under my care and that I, a nurse practitioner or a physician; a assistant food service manager working with me, had a face to face encounter that - meets the physician face to face encounter requirements with this patient as dated. DIEGO MENDEZ MD Aug 02, 2020 13:16
--- NOTE | 2020-08-02 13:17 | Discharge Summary ---
Discharge Summary Hospital Course Problems/Dx: (1) Acute on chronic renal failure Status: Acute (2) SBO (small bowel obstruction) Status: Acute (3) fecal impaction of Frausto Pouch (4) Impacted stool in intestine Status: Acute (5) Diabetes mellitus type II, uncontrolled Status: Chronic (6) Hypokalemia (7) HTN (hypertension) Status: Chronic (8) Normal anion gap metabolic acidosis Hospital Course Date of Admission: Jul 29, 2020 at 13:35 Admission Diagnosis : Family Physician/Provider: Diego Mendez MD Date of Discharge: 08/02/20 Discharge Diagnosis: [ ] Hospital Course: [ ] Labs and Pending Lab Test: Laboratory Tests 08/01/20 20:35: Glucometer 242H 08/02/20 06:35: White Blood Count 17.6H, Red Blood Count 3.08L, Hemoglobin 9.4L, Hematocrit 30L, Mean Corpuscular Volume 96, Mean Corpuscular Hemoglobin 31, Mean Corpuscular Hemoglobin Concent 32, Red Cell Distribution Width 13.3, Platelet Count 218, Mean Platelet Volume 11.3, Sodium Level 140, Potassium Level 3.4L, Chloride Level 111H, Carbon Dioxide Level 17L, Anion Gap 12, Blood Urea Nitrogen 32H, Creatinine 2.11H, Estimat Glomerular Filtration Rate 23, BUN/Creatinine Ratio 15, Glucose Level 238H, Calcium Level 8.0L 08/02/20 09:13: Glucometer 234H Home Meds Active Reported Aripiprazole 5 Mg Tablet 5 Mg PO HS Losartan Potassium 100 Mg Tablet 100 Mg PO HS Levemir Flextouch (Insulin Detemir) 100 Unit/1 Ml Insuln.pen 13 Unit SQ HS Victoza 3-Raj (Liraglutide) 0.6 Mg/0.1 Ml Pen.injctr 0.6 Mg SC DAILY Gabapentin 100 Mg Capsule 200 Mg PO HS TAKES 2 (100MG) CAPS Discharge Physical Examination Vital Signs Vital Signs Date Time Temp Pulse Resp B/P (MAP) Pulse Ox O2 Delivery O2 Flow Rate FiO2 08/02/20 12:48 96 08/02/20 12:31 36.9 19 164/75 (104) 98 Room Air 08/02/20 11:03 21 Allergies: Coded Allergies: Sulfa (Sulfonamide Antibiotics) (Verified Allergy, Unknown, 06/11/06) iodine (Verified Allergy, Unknown, 01/17/20) Discharge Summary Date of Admission Jul 29, 2020 at 13:35 Date of Discharge Discharge Diagnosis (1) Acute on chronic renal failure Status: Acute (2) SBO (small bowel obstruction) Status: Acute Assessment & Plan: Dr Cole consulted. (3) fecal impaction of Frausto Pouch (4) Impacted stool in intestine Status: Acute (5) Diabetes mellitus type II, uncontrolled Status: Chronic Assessment & Plan: sliding scale insulin- will need to change to her home regiment when she is taking in food. (6) Hypokalemia (7) HTN (hypertension) Status: Chronic (8) Normal anion gap metabolic acidosis DIEGO MENDEZ MD Aug 02, 2020 13:17
[2020-08-02] MEDS ORDERED: LOSARTAN 100 MG (COZAAR) TABLET PO SCH (21:00)
== END 2020-08-02 14:29 | disposition home health service (06) | DRG 394 ==
LOC: EDUNIT# 14:46 → ER 14:49 → 4TH 18:13 → OBSVTOIN 07-29 13:35
PROVIDERS: ADMIT Family Medicine; ATTEND Family Medicine
DX: K94.03 Colostomy malfunction (principal); K56.699 Other intestinal obstruction unspecified as to partial versus complete obstruction; N17.9 Acute kidney failure, unspecified; E87.2 Acidosis; K56.41 Fecal impaction; I12.9 Hypertensive chronic kidney disease with stage 1 through stage 4 chronic kidney disease, or unspecified chronic kidney disease; E11.22 Type 2 diabetes mellitus with diabetic chronic kidney disease; E11.65 Type 2 diabetes mellitus with hyperglycemia; N18.9 Chronic kidney disease, unspecified; E87.5 Hyperkalemia; E87.6 Hypokalemia; F03.90 Unspecified dementia, unspecified severity, without behavioral disturbance, psychotic disturbance, mood disturbance, and anxiety; D64.9 Anemia, unspecified; Z88.2 Allergy status to sulfonamides; Z79.4 Long term (current) use of insulin
CPT/HCPCS: 36410; 36415; 74022; 74176; 76937; 80048; 80053; 81000; 82947; 85007; 85025; 85027; 94760; G0378

== ENCOUNTER 2020-08-11 11:44 | Emergency (ER) | payer MEDICARE, OTHER ==
[~2020-08-11] VITALS: Ht 172.7 cm; Wt 49.8 kg
[~2020-08-11 11:44] MED LIST changes: +ARIP5TAB57 PO; +INSU100I29 SQ; +LOSA100T57 PO
[2020-08-11] MEDS ORDERED: NS IV 1000 ML 1,000 ML IV SCH ×3 (12:00→15:30)
[2020-08-11] MEDS ORDERED: ONDANSETRON 4 MG/2 ML (SDV) Z0FRAN IVP ONE (12:00)
[2020-08-11 12:25] LABS: BASOPHILS % (AUTO) 0 % (0-10); EOSINOPHILS % (AUTO) 0 % (0-10); HEMATOCRIT 36 % (35-52); HEMOGLOBIN 11.3 g/dL (11.5-16.0); LYMPHOCYTES # (AUTO) 2.1 10^3/uL (1.0-4.0); LYMPHOCYTES % (AUTO) 21 % (12-44); MEAN CORPUSCULAR HEMOGLOBIN 30 pg (25-34); MEAN CORPUSCULAR HGB CONC 31 g/dL (32-36); MEAN CORPUSCULAR VOLUME 96 fL (80-99); MONOCYTES # (AUTO) 0.7 10^3/uL (0.0-1.0); MONOCYTES % (AUTO) 6 % (0-12); NEUTROPHILS # (AUTO) 7.3 10^3/uL (1.8-7.8); NEUTROPHILS % (AUTO) 72 % (42-75); PLATELET COUNT 586 10^3/uL (130-400); WHITE BLOOD COUNT 10.2 10^3/uL (4.3-11.0)
[2020-08-11 12:37] LABS: ALBUMIN 3.9 GM/DL (3.2-4.5)
[2020-08-11 12:38] LABS: POTASSIUM 5.3 MMOL/L (3.6-5.0); PROTHROMBIN TIME PATIENT 13.7 SEC (12.2-14.7)
[2020-08-11 12:39] LABS: CALCIUM 9.5 MG/DL (8.5-10.1)
[2020-08-11 12:40] LABS: TOTAL PROTEIN 7.7 GM/DL (6.4-8.2)
[2020-08-11 12:42] LABS: BILIRUBIN,TOTAL 0.5 MG/DL (0.1-1.0)
[2020-08-11 12:44] LABS: CREATININE SERUM 5.39 MG/DL (0.60-1.30)
[2020-08-11] MEDS ORDERED: fentaNYL INJ 100 MCG/2 ML AMP IVP ONE ×2 (13:30→16:15)
--- NOTE | 2020-08-11 13:39 | Diagnostic Imaging Report ---
INDICATION: Weakness and hypotension. Frontal chest obtained at 1:34 p.m. Heart and mediastinal silhouette are normal in appearance. The lungs are clear. There is no pneumothorax or pleural fluid. IMPRESSION: No acute process in the chest. Dictated by: Dictated on workstation # [id number]
--- NOTE | 2020-08-11 13:46 | ED General ---
General Chief Complaint: Cardiac/General Problems Stated Complaint: LOW BP,DISORIENTED,WEAKNESS Nursing Triage Note: Pt to ED with multiple complaints. Pt c/o weakness and low BP. Pt has also been vomiting and has anorexia. Pt reports vomiting when smelling food. Pt also c/o L sided earache. Source of Information: Patient, Family, Old Records Exam Limitations: No Limitations History of Present Illness Date Seen by Provider: Aug 11, 2020 Time Seen by Provider: 11:49 Initial Comments This is 75-year-old woman presents to the emergency room with primary complaints of weakness and low blood pressure. She presents by private vehicle. She has chronic problems with vomiting and poor appetite. She has history of colectomy and ileostomy which she states is because of ulcerative colitis. She had a small bowel obstruction a few weeks ago which resolved without surgical intervention. She had an episode of severe renal failure in February for which she was flown to [facility] in [place]. She has history of chronic renal failure with her last creatinine on file being 2.11. Her primary care provider is Dr. Camille Mendez. Her produce inspector is Dr. Gracia at [facility]. Today she is also complaining of generalized aching and cramping. Allergies and Home Medications Allergies Coded Allergies: Sulfa (Sulfonamide Antibiotics) (Verified Allergy, Unknown, 06/11/06) iodine (Verified Allergy, Unknown, 01/17/20) Home Medications Aripiprazole 5 Mg Tablet, 5 MG PO HS, (Reported) Gabapentin 100 Mg Capsule, 200 MG PO HS, (Reported) TAKES 2 (100MG) CAPS Insulin Detemir 100 Unit/1 Ml Insuln.pen, 13 UNIT SQ HS, (Reported) Liraglutide 0.6 Mg/0.1 Ml Pen.injctr, 0.6 MG SC DAILY, (Reported) Losartan Potassium 100 Mg Tablet, 100 MG PO HS, (Reported) Patient Home Medication List Home Medication List Reviewed: Yes Review of Systems Review of Systems Constitutional: see HPI EENTM: other (Dry mucous membranes) Respiratory: no symptoms reported Cardiovascular: see HPI Gastrointestinal: see HPI Genitourinary: see HPI : No Musculoskeletal: see HPI Skin: no symptoms reported Psychiatric/Neurological: No Symptoms Reported Hematologic/Lymphatic: No Symptoms Reported Immunological/Allergic: no symptoms reported Past Btlnoqz-Guizfy-Cidyux Hx Patient Social History Tobacco Use?: No Smoking Status: Never a Smoker Substance use?: No Alcohol Use?: No Immunizations Up To Date First/Initial COVID19 Vaccinat: 07/02 Seasonal Allergies Seasonal Allergies: No Past Medical History Surgeries: Yes (COLECTOMY,APPY,POUCH FROM SM.INTESTINE,ADHESIONS,D&C,STOMA CLOSURE) Respiratory: No Cardiac: Yes Hypertension Neurological: No Reproductive Disorders: No Gastrointestinal: Yes (ulcerative colitis status post colectomy and ileostomy) Musculoskeletal: No Endocrine: Yes Diabetes, Insulin dep HEENT: No Cancer: No Psychosocial: Yes Blood Disorders: No Family Medical History No Pertinent Family Hx Physical Exam-Suspected Sepsis Physical Exam Vital Signs Vital Signs - First Documented 08/11/20 11:51 Temp 36.3 Pulse 121 Resp 13 B/P (MAP) 86/56 (66) Pulse Ox 97 O2 Delivery Room Air Capillary Refill : Less Than 3 Seconds Blood Pressure Mean: 66 Height, Weight, BMI Height: 5'6.00" Weight: 134lbs. 0.5oz. 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 Norm as Tested Skin: normal color, warm/dry Focused Exam Lactate Level 08/11/20 12:10: Lactic Acid Level 2.20*H 08/11/20 15:25: Lactic Acid Level 1.17 Lactic Acid Level Progress/Results/Core Measures Suspected Sepsis SIRS Temperature: Pulse: 121 Respiratory Rate: 13 Laboratory Tests 08/11/20 12:10: White Blood Count 10.2 Blood Pressure 86 /56 Mean: 66 08/11/20 12:10: Lactic Acid Level 2.20*H 08/11/20 15:25: Lactic Acid Level 1.17 Laboratory Tests 08/11/20 12:10: Creatinine 5.39H, INR Comment 1.0, Platelet Count 586H, Total Bilirubin 0.5 Results/Orders Lab Results Laboratory Tests Test 08/11/20 12:10 08/11/20 13:50 08/11/20 15:25 Range/Units White Blood Count 10.2 4.3-11.0 10^3/uL Red Blood Count 3.75 L 3.80-5.11 10^6/uL Hemoglobin 11.3 L 11.5-16.0 g/dL Hematocrit 36 35-52 % Mean Corpuscular Volume 96 80-99 fL Mean Corpuscular Hemoglobin 30 25-34 pg Mean Corpuscular Hemoglobin Concent 31 L 32-36 g/dL Red Cell Distribution Width 14.0 10.0-14.5 % Platelet Count 586 H 130-400 10^3/uL Mean Platelet Volume 12.0 9.0-12.2 fL Immature Granulocyte % (Auto) 0 % Neutrophils (%) (Auto) 72 42-75 % Lymphocytes (%) (Auto) 21 12-44 % Monocytes (%) (Auto) 6 0-12 % Eosinophils (%) (Auto) 0 0-10 % Basophils (%) (Auto) 0 0-10 % Neutrophils # (Auto) 7.3 1.8-7.8 10^3/uL Lymphocytes # (Auto) 2.1 1.0-4.0 10^3/uL Monocytes # (Auto) 0.7 0.0-1.0 10^3/uL Eosinophils # (Auto) 0.0 0.0-0.3 10^3/uL Basophils # (Auto) 0.0 0.0-0.1 10^3/uL Immature Granulocyte # (Auto) 0.0 0.0-0.1 10^3/uL Prothrombin Time 13.7 12.2-14.7 SEC INR Comment 1.0 0.8-1.4 Activated Partial Thromboplast Time 28 24-35 SEC Sodium Level 137 135-145 MMOL/L Potassium Level 5.3 H 3.6-5.0 MMOL/L Chloride Level 100 98-107 MMOL/L Carbon Dioxide Level 19 L 21-32 MMOL/L Anion Gap 18 H 5-14 MMOL/L Blood Urea Nitrogen 59 H 7-18 MG/DL Creatinine 5.39 H 0.60-1.30 MG/DL Estimat Glomerular Filtration Rate 8 BUN/Creatinine Ratio 11 Glucose Level 341 H 70-105 MG/DL Lactic Acid Level 2.20 *H 1.17 0.50-2.00 MMOL/L Calcium Level 9.5 8.5-10.1 MG/DL Corrected Calcium 9.6 8.5-10.1 MG/DL Magnesium Level 2.0 1.6-2.4 MG/DL Total Bilirubin 0.5 0.1-1.0 MG/DL Aspartate Amino Transf (AST/SGOT) 17 5-34 U/L Alanine Aminotransferase (ALT/SGPT) 21 0-55 U/L Alkaline Phosphatase 88 40-136 U/L C-Reactive Protein High Sensitivity 4.64 H 0.00-0.50 MG/DL Total Protein 7.7 6.4-8.2 GM/DL Albumin 3.9 3.2-4.5 GM/DL Lipase 59 8-78 U/L Procalcitonin 1.80 H <0.10 NG/ML Urine Color DARK YELLOW Urine Clarity SL CLOUDY Urine pH 5.0 5-9 Urine Specific [place] >=1.030 1.016-1.022 Urine Protein 2+ H NEGATIVE Urine Glucose (UA) NEGATIVE NEGATIVE Urine Ketones TRACE H NEGATIVE Urine Nitrite NEGATIVE NEGATIVE Urine Bilirubin NEGATIVE NEGATIVE Urine Urobilinogen 1.0 < = 1.0 MG/DL Urine Leukocyte Esterase NEGATIVE NEGATIVE Urine RBC (Auto) NEGATIVE NEGATIVE Urine RBC 0-2 /HPF Urine WBC 0-2 /HPF Urine Crystals PRESENT H /LPF Urine Amorphous Sediment LARGE JAGJIT URATES H /LPF Urine Bacteria NEGATIVE /HPF Urine Casts NONE /LPF Urine Mucus NEGATIVE /LPF Urine Culture Indicated NO Micro Results Microbiology 08/11/20 Blood Culture - Preliminary, Resulted No growth 08/11/20 Urine Culture - Final, Complete NO GROWTH 08/11/20 Blood Culture - Preliminary, Resulted No growth My Orders Orders - WILMER LOUISE MD Cbc With Automated Diff (08/11/20 11:47) Comprehensive Metabolic Panel (08/11/20 11:47) Hs C Reactive Protein (08/11/20 11:47) Ed Iv/Invasive Line Start (08/11/20 11:47) Ns Iv 1000 Ml (Sodium Chloride 0.9%) (08/11/20 12:00) Ondansetron Injection (Zofran Injectio (08/11/20 12:00) Blood Culture (08/11/20 11:56) Sputum Culture (08/11/20 11:56) Urinalysis (08/11/20 11:56) Urine Culture (08/11/20 11:56) Protime With Inr (08/11/20 11:56) Partial Thromboplastin Time (08/11/20 11:56) Chest 1 View, Ap/Pa Only (08/11/20 11:56) Vital Signs Adult Sepsis Patie Q15M (08/11/20 11:56) O2 (08/11/20 11:56) Remove Rings In Anticipation O (08/11/20 11:56) Lactic Acid Analyzer (08/11/20 11:56) Lipase (08/11/20 11:56) Ns Iv 1000 Ml (Sodium Chloride 0.9%) (08/11/20 13:00) Fentanyl Inj (Sublimaze Injection) (08/11/20 13:30) Magnesium (08/11/20 13:46) Procalcitonin (Pct) (08/11/20 14:21) Ct Abdomen/Pelvis Wo (08/11/20 14:51) Cefepime Injection (Maxipime Injection) (08/11/20 15:15) Ns Iv 1000 Ml (Sodium Chloride 0.9%) (08/11/20 15:30) Fentanyl Inj (Sublimaze Injection) (08/11/20 16:15) Famotidine Injection (Pepcid Injection) (08/11/20 17:15) Morphine Injection (Morphine Injection (08/11/20 17:01) Medications Given in ED Vital Signs/I&O Capillary Refill : Less Than 3 Seconds Blood Pressure Mean: 66 Progress Note #1: Time: 13:44 Progress Note Patient has very difficult vascular access. PICC line staff was able to establish a line in the left EJ with ultrasound guidance. IV fluids are now infusing. Map is still less than 65 after a 500 mL normal saline bolus. IV fluids are still infusing. I have discussed the case with Dr. Tovar, hospitalist at [facility]. He has requested resulting out a chest x-ray and urinalysis as well as achieving MAP greater than 65 prior to transferring. Medical floor beds are available but no ICU beds are available at [facility] at this time. Lactic acid was only 2.2, likely owing to the renal failure. Patient was complaining of a generalized aches and pains. Fentanyl 50 mcg was given for this. Disposition is pending results of blood pressure resuscitation and urinalysis results. Chest x-ray was unremarkable. Progress Note #2: Time: 14:20 Progress Note The second liter of IV fluids is now infusing. Blood pressure is stable but MAP is not above 65 yet. Patient is now complaining of abdominal pain on the right. Given her significant GI history, we will obtain a CT to be sure there is no surgical pathology. Patient states her discomfort at present is worse than her usual. So far no source of infection has been identified. We are awaiting a repeat lactic acid if it can be drawn. Progress Note #3: Time: 15:07 Progress Note Patient is presently in CT. Blood pressures were initially improving somewhat with IV fluids. However, they are now downward trending again. Although no source of infection has been identified, procalcitonin returned with a value of 1.8 which brings sepsis from unknown source into question. I am ordering cefepime 1 g IV as a precaution. If MAP does not achieve 65 after the 2 L bolus is complete, we will consider Levophed. Have been unable to obtain a second blood culture and a second lactic acid because the EJ would not draw and for vascular access has not enabled a draw elsewhere. I am hesitant to start a central line because we may need to large vessel access for dialysis. Progress Note #4: Time: 16:57 Progress Note Patient has now had 3 L of IV normal saline. Repeat lactic acid was improved from 2.2 down to 1.7 after 2 L of IV fluids. Cefepime 1 g IV was given after blood cultures were drawn. Patient is now up and walking around the emergency room for comfort. Last blood pressure was 115/49 with a MAP of 69. CT de monstrated resolution of obstruction and a decrease in distention of the Frausto pouch. I had a conversation with the patient's daughter regarding the pouch. There is a specific catheter used to drain the pouch after manually opening the valve with fingers. Patient's went home to collect the supplies. I am awaiting a callback from [facility]. She is complaining of more pain in her abdomen. This is presumably because the pouch needs to be emptied. We are waiting supplies from her . In the meantime she received fentanyl 25 mcg and will receive morphine 2 mg. Progress Note #5: Time: 18:28 Progress Note Patient was able to walk independently to the bathroom and demonstrate the draining of her Fruasto pouch with catheter. She states her dizziness has resolved. She is alert and talkative. We are awaiting bed assignment from [facility]. Care is being transitioned to Dr. Amaro while she awaits transfer. Diagnostic Imaging Diagonstic Imaging: Xray Plain Films/CT/US/NM/MRI: chest Comments NAME: DEBORAH CRUZ [facility] REC#: [id number] PT STATUS: REG ER : 1945 PHYSICIAN: WILMER LOUISE MD ADMIT DATE: 08/11/20/ER Draft Date of Exam:08/11/20 CHEST 1 VIEW, AP/PA ONLY INDICATION: Weakness and hypotension. Frontal chest obtained at 1:34 p.m. Heart and mediastinal silhouette are normal in appearance. The lungs are clear. There is no pneumothorax or pleural fluid. IMPRESSION: No acute process in the chest. Dictated on workstation # [id number] Dict: 08/11/20 1336 Trans: 08/11/20 1339 [facility] [id number] Interpreted by: EDER HUTSON MD Diagonstic Imaging: CT Plain Films/CT/US/NM/MRI: abdomen, pelvis Comments CT abdomen and pelvis viewed by me and compared with prior. Discussed with the radiologist. Report reviewed. See report below: NAME: DEBORAH CRUZ [facility] REC#: [id number] PT STATUS: REG ER : 1945 PHYSICIAN: WILMER LOUISE MD ADMIT DATE: 08/11/20/ER Draft Date of Exam:08/11/20 CT ABDOMEN/PELVIS WO PROCEDURE: CT abdomen and pelvis without contrast. TECHNIQUE: Multiple contiguous axial images were obtained through the abdomen and pelvis without the use of intravenous contrast. Auto Exposure Controls were utilized during the CT exam to meet ALARA standards for radiation dose reduction. INDICATION: Nausea, vomiting, abdominal pain, recent bowel obstruction. COMPARISON: 07/27/2020. FINDINGS: There has been interval decompression of the the small bowel compared to the previous examination. The pouch in the right lower quadrant near the colostomy remains somewhat distended but now measuring 72 x 75 mm. Previously this was measured at approximately 124 x 123 cm mm. Overall the bowel is difficult to evaluate due to lack of contrast. There is no free air or abscess formation. No ascites identified. There is some stable thickening the pre-sacral space. Lung bases remain clear. The gallbladder surgically absent. Solid organs are stable and grossly unremarkable. Urinary bladder is nondistended. Osseous structures stable. IMPRESSION: 1. The pouch near the colostomy in the right lower quadrant is overall less distended compared to the previous examination. 2. Limited examination of the bowel due to lack of contrast. However, bowel obstruction has resolved. There is no pneumoperitoneum or free fluid or abscess formation. 3. Nonspecific thickening in the presacral space. This could be a nonopacified bowel. Followup with contrast is recommended. 4. Surgically absent gallbladder. Dictated on workstation # [id number] Dict: 08/11/20 1520 Trans: 08/11/20 1530 [facility] [id number] Interpreted by: RACHELLE RIVAS Departure Impression Primary Impression: Ocska-eb-zjycjtw kidney injury Qualified Codes: N17.9 - Acute kidney failure, unspecified; N18.9 - Chronic kidney disease, unspecified Additional Impressions: Abdominal pain Qualified Codes: R10.84 - Generalized abdominal pain Hypovolemia Disposition: T-[facility] Condition: Improved Transfer Transfer Reason: Exceeds level of care Transfer Progress Notes Transfer accepted by hospitalist, Dr. Tovar, at [facility] in [place]. Transfer Time: 20:46 Transfer Facility: [facility] Method of Transfer: EMS Departure-Patient Inst. Referrals: CAMILLE MENDEZ MD (PCP/Family) Primary Care Physician Copy Copies To 1: CAMILLE MENDEZ MD, JOSHUA T MD Aug 11, 2020 13:46
[2020-08-11 14:01] LABS: CLARITY,URINE SL CLOUDY; COLOR,URINE DARK YELLOW; GLUCOSE, URINE (UA) NEGATIVE (NEGATIVE); KETONES,URINE TRACE (NEGATIVE); LEUKOCYTE ESTERASE ,URINE NEGATIVE (NEGATIVE); NITRITE,URINE NEGATIVE (NEGATIVE); PROTEIN,URINE 2+ (NEGATIVE)
[2020-08-11 14:09] LABS: AMORPHOUS SEDIMENT,UR LARGE AMOR URATES /LPF; BACTERIA,URINE NEGATIVE /HPF; BILIRUBIN,URINE NEGATIVE (NEGATIVE); RBC,URINE 0-2 /HPF; WBC,URINE 0-2 /HPF
[2020-08-11] MEDS ORDERED: CEFEPIME INJECTION 1,000 MG in WATER (STERILE) FOR INJECTION 10 ML IV ONE (15:15)
--- NOTE | 2020-08-11 15:30 | Diagnostic Imaging Report ---
PROCEDURE: CT abdomen and pelvis without contrast. TECHNIQUE: Multiple contiguous axial images were obtained through the abdomen and pelvis without the use of intravenous contrast. Auto Exposure Controls were utilized during the CT exam to meet ALARA standards for radiation dose reduction. INDICATION: Nausea, vomiting, abdominal pain, recent bowel obstruction. COMPARISON: 07/27/2020. FINDINGS: There has been interval decompression of the the small bowel compared to the previous examination. The pouch in the right lower quadrant near the colostomy remains somewhat distended but now measuring 72 x 75 mm. Previously this was measured at approximately 124 x 123 cm mm. Overall the bowel is difficult to evaluate due to lack of contrast. There is no free air or abscess formation. No ascites identified. There is some stable thickening the pre-sacral space. Lung bases remain clear. The gallbladder surgically absent. Solid organs are stable and grossly unremarkable. Urinary bladder is nondistended. Osseous structures stable. IMPRESSION: 1. The pouch near the colostomy in the right lower quadrant is overall less distended compared to the previous examination. 2. Limited examination of the bowel due to lack of contrast. However, bowel obstruction has resolved. There is no pneumoperitoneum or free fluid or abscess formation. 3. Nonspecific thickening in the presacral space. This could be a nonopacified bowel. Followup with contrast is recommended. 4. Surgically absent gallbladder. Dictated by: Dictated on workstation # [id number]
[2020-08-11] MEDS ORDERED: morphine INJ 10 MG/ML 1ML (SYR OR VIAL) IVP STA (17:01)
[2020-08-11] MEDS ORDERED: FAMOTIDINE 20MG/2ML IV (PEPCID) IVP ONE (17:15)
[2020-08-11 20:45] VITALS: BP 94/60
== END 2020-08-11 20:46 | disposition short-term general hospital (02) ==
LOC: EDUNIT# 11:44 → ER 11:46
DX: N17.9 Acute kidney failure, unspecified (principal); R10.84 Generalized abdominal pain; E86.1 Hypovolemia; I10 Essential (primary) hypertension; E11.9 Type 2 diabetes mellitus without complications; Z93.2 Ileostomy status; Z90.49 Acquired absence of other specified parts of digestive tract; Z79.4 Long term (current) use of insulin; Z79.899 Other long term (current) drug therapy
CPT/HCPCS: 36415; 51701; 71045; 74176; 80053; 81000; 83605; 83690; 83735; 84145; 85025; 85610; 85730; 86141; 87040; 87088; 96361; 96374; 96375; 96376

== ENCOUNTER 2021-02-08 15:04 | Emergency (ER) | payer MEDICARE, OTHER ==
[~2021-02-08] VITALS: Ht 170.2 cm; Wt 52.2 kg
[~2021-02-08 15:04] MED LIST changes: -DOXY100C2 PO; +DOXY100C5 PO; -LISI-729 PO; +LISI5TAB20 PO
--- OUTSIDE RECORDS SUMMARY | 2021-02-08 15:13 | XMS REPORT | Clinical Summary ---
Author Author [facility] Organization [facility] Address Unknown Phone Unavailable Care Team Providers Care Vest Baster Name Role Phone PCP Unavailable Allergies Not on File Medications Not on file Active Problems Not on file Social History Date Tobacco Use Types Packs/Day Years Used Never Assessed Sex Assigned at Date Recorded Not on file Last Filed Vital Signs Not on file Plan of Treatment Not on file Results Not on filefrom Last 3 Months
--- OUTSIDE RECORDS SUMMARY | 2021-02-08 15:13 | XMS REPORT | Clinical Summary ---
Author Author [facility] Organization [facility] Address Unknown Phone Unavailable Care Team Providers Care Butter Wrapper Name Role Phone Pratima Rea MD, Obie Cano Unavailable Katalina Orr MD Unavailable Baylee Melton RN Unavailable Unavailable Bhargavi Young MD Unavailable Sameer Carr MD Unavailable Unavailable Source Comments Some departments are not documenting in the electronic medical record. If you d o not see the information that you expected, contact Release of Information in [facility] Information Management department at [phone] for further assistan ce in locating additional records.[facility] Allergies Comments Active Allergy Reactions Severity Noted Date Levofloxacin RASH 12/06/2010 Patient stated drug made her swell Sulfur EDEMA 12/06/2010 Medications End Date Status Medication Sig Dispensed Refills Start Date Active cyanocobalamin (VITAMIN Inject 1,000 0 B-12, RUBRAMIN) 1,000 mcg to mcg/mL injection area(s) as directed every 30 days. Active traZODone (DESYREL) 100 Take 200 mg 0 mg tablet by mouth at bedtime daily. May take additional 100mg PO HS if needed Active senna/docusate Take 2 Tabs 90 Tab 3 (SENOKOT-S) 8.6/50 mg by mouth 1 tablet twice daily. Active calcium carbonate/vitamin Take 1 Tab by 60 Tab 1 D-3 (OSCAL-500+D) 1250 mouth daily. 1 mg/200 unit tablet Calcium Carb 1250mg delivers 500mg elemental Ca Active traMADol (ULTRAM) 50 mg Take 0.5 Tabs 30 Tab 3 tablet by mouth at 1 bedtime daily. Active LORazepam (ATIVAN) 0.5 mg Take 1 Tab by 30 Tab 2 tablet mouth every 8 1 hours as needed. Active lactobacillus rhamnosus Take 1 Cap by 90 Cap 2 (GG) (CULTURELLE) 10 mouth twice 1 billion cell Cap daily with meals. Active ondansetron (ZOFRAN) 4 mg Take 1 Tab by 20 Tab 1 tablet mouth every 4 1 hours as needed for Nausea. Active simethicone (MYLICON) 80 Take 1.5 Tabs 30 Tab 3 mg chew tablet by mouth 1 every 2 hours as needed. Active risperiDONE (RISPERDAL) Take 1 Tab by 20 Tab 1 0.5 mg M-tab mouth twice 1 daily as needed. Active ferrous gluconate 324 mg Take 1 Tab by 90 Tab 2 (38 mg iron) Tab mouth three 1 times daily with meals. Active buPROPion (WELLBUTRIN) Take 1.5 Tabs 60 Tab 2 1 100 mg tablet by mouth 1 twice daily. Patient states taking a tablet that dissolves, may have received some doses from doctor's office. Dose = 100mg PO TID per [facility] pharmacy. Active glipiZIDE (GLUCOTROL) 5 Take 1 Tab by 180 Tab 3 mg tablet mouth twice 1 daily with meals. Active repaglinide(+) (PRANDIN) Take 3 Tabs 270 Tab 0 1 0.5 mg tablet by mouth 1 three times daily before meals. Active metFORMIN (GLUCOPHAGE) Take 1 Tab by 60 Tab 5 1 500 mg tabletIndications: mouth twice 1 Diabetes mellitus (HCC) daily with meals. Active Problems Problem Noted Date Depression 12/22/2010 SANTO (acute kidney injury) 12/22/2010 Diabetes mellitus 12/22/2010 Ulcerative colitis 12/21/2010 Diarrhea 12/21/2010 Surgical History Surgery Date Site/Laterality Comments ILEOSTOMY OR JEJUNOSTOMY COLECTOMY Medical History Medical History Date Comments Ulcerative colitis Type II diabetes mellitus (HCC) HTN (hypertension) Gallstones Depression Anxiety Skin cancer Family History Medical History Relation Name Comments Depression Brother Heart Attack Brother Heart Attack Father Arthritis-rheumatoid Maternal Grandmother Diabetes Maternal Grandmother Diabetes Maternal Uncle Depression Mother Diabetes Paternal Grandfather Stroke Paternal Grandfather Thyroid Disease Sister Relation Name Status Comments Brother Father Maternal Grandmother Maternal Uncle Mother Paternal Grandfather Sister Social History Date Tobacco Use Types Packs/Day Years Used Never Smoker Smokeless Tobacco: Never Used Comments Alcohol Use Standard Drinks/Week No 0 (1 standard drink = 0.6 o z pure alcohol) Sex Assigned at Date Recorded Not on file Last Filed Vital Signs Reading Time Taken Comments Vital Sign 143/73 01/10/2011 3:17 PM FINISHING INSPECTOR Blood Pressure 98 01/10/2011 3:17 PM FINISHING INSPECTOR Pulse 36.8 °C (98.2 °F) 01/10/2011 3:17 PM FINISHING INSPECTOR Temperature 16 01/10/2011 3:17 PM FINISHING INSPECTOR Respiratory Rate 100% 01/06/2011 1:29 PM FINISHING INSPECTOR Oxygen Saturation - - Inhaled Oxygen Concentration 54.3 kg (119 lb 9.6 oz) 01/10/2011 3:17 PM FINISHING INSPECTOR Weight 168.9 cm (5' 6.5") 01/10/2011 3:17 PM FINISHING INSPECTOR Height 19.01 01/10/2011 3:17 PM FINISHING INSPECTOR Body Mass Index Plan of Treatment Health Maintenance Due Date Last Done Comments DTAP/TDAP VACCINES (1 - 1965 Tdap) PHYSICAL (COMPREHENSIVE) 1965 EXAM BREAST CANCER SCREENING 1987 SHINGLES RECOMBINANT 1997 VACCINE (1 of 2) OSTEOPOROSIS 2012 SCREENING/MONITORING PNEUMONIA (PPSV23) 2012 VACCINE (1 of 1 - PPSV23) INFLUENZA VACCINE 09/12/2020 11/22/2010 (Previously completed) COLORECTAL CANCER 12/22/2020 12/22/2010 SCREENING HEPATITIS C SCREENING Completed 12/22/2010 Results Not on filefrom Last 3 Months Advance Directives Date Inactivated Comments Code Status Date Activated 01/06/2011 11:44 PM Full Code 12/21/2010 7:19 AM Provider has discussed Code Status Yes w/Patient or Family? 12/09/2010 8:50 PM Full Code 12/06/2010 3:39 AM Provider has discussed Code Status Yes w/Patient or Family? Care Teams Start Date End Date Butter Wrapper Relationship Specialty 12/06/10 Obie Andujar Jr., MD [address] [place] [address] 12/19/10 Katalina Orr MD Internal [address] [place] [id number] 12/21/10 Baylee Melton, GOPI Emergency Medicine 01/09/11 Bhargavi Young MD Internal [address] [place] [address] [facility] [address] [address] 01/31/11 Sameer Carr MD Endocrinolog RETIRED AUGUST 2012 y, Diabetes [employer] & Metabolism
--- NOTE | 2021-02-08 15:59 | ED General ---
General Chief Complaint: General Problems/Pain Stated Complaint: COUGH,SOB,LEG SWELLING, BODY ACHES Source of Information: Patient Exam Limitations: No Limitations (JERRY MARTINEZ APRN) History of Present Illness Date Seen by Provider: Feb 08, 2021 Time Seen by Provider: 15:57 Initial Comments To ER with shortness of breath, bilateral leg swelling, cramps in her legs, lower abdominal pain. She also has some disorientation according to the . She arrives from home. Chronic kidney disease. She has a colostomy secondary to colon resection for ulcerative colitis. Timing/Duration: 1-2 Days Severity: Moderate Associated Systoms: Denies Symptoms (JERRY MARTINEZ APRN) Allergies and Home Medications Allergies Coded Allergies: Morpholine Analogues (Verified Allergy, Unknown, 02/08/21) Sulfa (Sulfonamide Antibiotics) (Verified Allergy, Unknown, 06/11/06) iodine (Verified Allergy, Unknown, 01/17/20) Patient Home Medication List Home Medication List Reviewed: Yes (JERRY MARTINEZ APRN) Amoxicillin/Potassium Clav (Amox Tr-K Clv 500-125 mg Tab) 1 Each Tablet, 1 EACH PO BID Prescribed by: JERRY MARTINEZ on 02/08/21 1904 Aripiprazole (Aripiprazole) 5 Mg Tablet, 5 MG PO HS, (Reported) Entered as Reported by: NYASIA JOHNSON on 07/29/20 1331 Gabapentin (Gabapentin) 100 Mg Capsule, 200 MG PO HS, (Reported) Entered as Reported by: NYASIA JOHNSON on 01/16/20 1412 Insulin Detemir (Levemir Flextouch) 100 Unit/1 Ml Insuln.pen, 13 UNIT SQ HS, (Reported) Entered as Reported by: NYASIA JOHNSON on 07/29/20 1331 Liraglutide (Victoza 3-Raj) 0.6 Mg/0.1 Ml Pen.injctr, 0.6 MG SC DAILY, (Reported) Entered as Reported by: NYASIA JOHNSON on 07/29/20 1331 Losartan Potassium (Losartan Potassium) 100 Mg Tablet, 100 MG PO HS, (Reported) Entered as Reported by: NYASIA JOHNSON on 07/29/20 1331 Review of Systems Review of Systems Constitutional: see HPI EENTM: see HPI Respiratory: no symptoms reported Cardiovascular: no symptoms reported Genitourinary: no symptoms reported Musculoskeletal: no symptoms reported Skin: no symptoms reported Psychiatric/Neurological: No Symptoms Reported Hematologic/Lymphatic: No Symptoms Reported Immunological/Allergic: no symptoms reported (JERRY MARTINEZ APRN) Past Wufvzru-Jaoszf-Wjnquw Hx Seasonal Allergies Seasonal Allergies: No (JERRY MARTINEZ APRN) Past Medical History Surgeries: Yes (COLECTOMY,APPY,POUCH FROM SM.INTESTINE,ADHESIONS,D&C,STOMA CLOSURE) Respiratory: No Cardiac: Yes Hypertension Neurological: No Reproductive Disorders: No Gastrointestinal: Yes (ulcerative colitis status post colectomy and ileostomy) Musculoskeletal: No Endocrine: Yes Diabetes, Insulin dep HEENT: No Cancer: No Psychosocial: Yes Blood Disorders: No (JERRY MARTINEZ APRN) Family Medical History No Pertinent Family Hx (JERRY MARTINEZ APRN) Physical Exam Vital Signs Vital Signs - First Documented 02/08/21 15:23 Temp 36.3 Pulse 76 Resp 20 B/P (MAP) 158/73 (101) Pulse Ox 100 O2 Delivery Room Air (WILMER LOUISE MD) Vital Signs Capillary Refill : (JERRY MARTINEZ APRN) Height, Weight, BMI Height: 5'6.00" Weight: 134lbs. 0.5oz. 60.201328nw; 16.00 BMI Method:Stated General Appearance: No Apparent Distress, WD/WN Eyes: Bilateral Eye Normal Inspection, Bilateral Eye PERRL, Bilateral Eye EOMI HEENT: PERRL/EOMI, TMs Normal Neck: Full Range of Motion, Normal Inspection Respiratory: Normal Breath Sounds, No Accessory Muscle Use, No Respiratory Distress Cardiovascular: Regular Rate, Rhythm, Normal Peripheral Pulses Gastrointestinal: Non Tender, Soft Extremity: Normal Capillary Refill, Normal Inspection Neurologic/Psychiatric: Alert, Oriented x3 Skin: Normal Color, Warm/Dry (JERRY MARTINEZ APRN) Progress/Results/Core Measures Suspected Sepsis SIRS Temperature: Pulse: Respiratory Rate: Laboratory Tests 02/08/21 15:45: White Blood Count 5.6 Blood Pressure / Mean: Laboratory Tests 02/08/21 15:45: Creatinine 3.69H, Platelet Count 234, Total Bilirubin 0.3 (JERRY MARTINEZ APRN) Results/Orders Lab Results Laboratory Tests Test 02/08/21 15:45 02/08/21 18:45 Range/Units White Blood Count 5.6 4.3-11.0 10^3/uL Red Blood Count 3.57 L 3.80-5.11 10^6/uL Hemoglobin 11.2 L 11.5-16.0 g/dL Hematocrit 36 35-52 % Mean Corpuscular Volume 100 H 80-99 fL Mean Corpuscular Hemoglobin 31 25-34 pg Mean Corpuscular Hemoglobin Concent 32 32-36 g/dL Red Cell Distribution Width 13.5 10.0-14.5 % Platelet Count 234 130-400 10^3/uL Mean Platelet Volume 11.7 9.0-12.2 fL Immature Granulocyte % (Auto) 0 % Neutrophils (%) (Auto) 56 42-75 % Lymphocytes (%) (Auto) 31 12-44 % Monocytes (%) (Auto) 10 0-12 % Eosinophils (%) (Auto) 3 0-10 % Basophils (%) (Auto) 0 0-10 % Neutrophils # (Auto) 3.1 1.8-7.8 10^3/uL Lymphocytes # (Auto) 1.7 1.0-4.0 10^3/uL Monocytes # (Auto) 0.6 0.0-1.0 10^3/uL Eosinophils # (Auto) 0.2 0.0-0.3 10^3/uL Basophils # (Auto) 0.0 0.0-0.1 10^3/uL Immature Granulocyte # (Auto) 0.0 0.0-0.1 10^3/uL Sodium Level 140 135-145 MMOL/L Potassium Level 4.7 3.6-5.0 MMOL/L Chloride Level 110 H 98-107 MMOL/L Carbon Dioxide Level 17 L 21-32 MMOL/L Anion Gap 13 5-14 MMOL/L Blood Urea Nitrogen 56 H 7-18 MG/DL Creatinine 3.69 H 0.60-1.30 MG/DL Estimat Glomerular Filtration Rate 12 BUN/Creatinine Ratio 15 Glucose Level 163 H 70-105 MG/DL Calcium Level 9.3 8.5-10.1 MG/DL Corrected Calcium 9.5 8.5-10.1 MG/DL Total Bilirubin 0.3 0.1-1.0 MG/DL Aspartate Amino Transf (AST/SGOT) 19 5-34 U/L Alanine Aminotransferase (ALT/SGPT) 20 0-55 U/L Alkaline Phosphatase 78 40-136 U/L Troponin I < 0.028 <0.028 NG/ML C-Reactive Protein High Sensitivity 1.88 H 0.00-0.50 MG/DL B-Type Natriuretic Peptide 290.8 H <100.0 PG/ML Total Protein 7.4 6.4-8.2 GM/DL Albumin 3.8 3.2-4.5 GM/DL Influenza Type A (RT-PCR) Not Detected Not Detecte Influenza Type B (RT-PCR) Not Detected Not Detecte SARS-CoV-2 RNA (RT-PCR) Not Detected Not Detecte Urine Color YELLOW Urine Clarity CLEAR Urine pH 6.0 5-9 Urine Specific [place] >=1.030 1.016-1.022 Urine Protein 3+ H NEGATIVE Urine Glucose (UA) TRACE H NEGATIVE Urine Ketones NEGATIVE NEGATIVE Urine Nitrite NEGATIVE NEGATIVE Urine Bilirubin NEGATIVE NEGATIVE Urine Urobilinogen 0.2 < = 1.0 MG/DL Urine Leukocyte Esterase NEGATIVE NEGATIVE Urine RBC (Auto) 1+ H NEGATIVE Urine RBC 2-5 H /HPF Urine WBC 0-2 /HPF Urine Squamous Epithelial Cells 0-2 /HPF Urine Renal Epithelial Cells NONE /HPF Urine Crystals NONE /LPF Urine Bacteria NEGATIVE /HPF Urine Casts NONE /LPF Urine Mucus NEGATIVE /LPF Urine Culture Indicated NO (WILMER LOUISE MD) My Orders Orders - WILMER LOUISE MD Bnp Lise (02/08/21 15:26) Cbc With Automated Diff (02/08/21 15:26) Comprehensive Metabolic Panel (02/08/21 15:26) Hs C Reactive Protein (02/08/21 15:26) Ed Iv/Invasive Line Start (02/08/21 15:26) Chest 1 View, Ap/Pa Only (02/08/21 15:26) Covid 19 Inhouse Test (02/08/21 15:26) Influenza A And B By Pcr (02/08/21 15:26) (WILMER LOUISE MD) Vital Signs/I&O 02/08/21 02/08/21 15:23 19:35 Temp 36.3 Pulse 76 82 Resp 20 20 B/P (MAP) 158/73 (101) 143/67 Pulse Ox 100 98 O2 Delivery Room Air Room Air (WILMER LOUISE MD) Vital Signs/I&O Capillary Refill : (JERRY MARTINEZ APRN) Departure Communication (Admissions) 1915-remains alert. at the bedside. I will put her on some knee-high RICHELLE hose for the pedal edema and have her follow-up with cardiology as scheduled and primary care. Gave her a prescription for Augmentin for the inflammation around the Frausto pouch. Family Conversation NAME: DEBORAH CRUZ [facility] REC#: [id number] PT STATUS: REG ER : 1945 PHYSICIAN: WILMER LOUISE MD ADMIT DATE: 02/08/21/ER Draft Date of Exam:02/08/21 CHEST 1 VIEW, AP/PA ONLY EXAMINATION: Portable erect AP chest at 4:41 pm INDICATION: Shortness of breath The heart size is stable when compared to the prior exam of 08/11/2020. The lungs remain generally clear. There is no sign of failure, pneumonia or pleural effusion. The mediastinum is not widened. The osseous structures are intact. External cardiac monitoring electrodes are noted. IMPRESSION: There is no evidence for active disease. When compared to the prior study, there has been no significant change. Dictated on workstation # [id number] Dict: 02/08/21 1658 Trans: 02/08/21 1709 [facility] [id number] Interpreted by: EHSAN ESTRADA MD Electronically signed by: NAME: DEBORAH CRUZ [facility] REC#: [id number] PT STATUS: REG ER : 1945 PHYSICIAN: JERRY MARTINEZ APRN ADMIT DATE: 02/08/21/ER Draft Date of Exam:02/08/21 CT ABD/PELVIS WO(KIDNEY STONE) EXAMINATION: CT abdomen and pelvis without contrast. TECHNIQUE: Multiple contiguous axial images were obtained through the abdomen and pelvis without the use of intravenous contrast. All CT scans use one or more of the following dose optimizing techniques: Automated exposure control, MA and/or KvP adjustment based on patient size and exam type or iterative reconstruction. HISTORY: Abdominal pain. COMPARISON: 08/11/2020. FINDINGS: Lung bases: Bibasilar dependent atelectasis. Solid organs: The liver is normal. The gallbladder is surgically absent. There is no biliary ductal dilation. Pancreas is normal. Spleen is normal. Adrenal glands are normal. There is wuvv-ue-mxwblhbx right hydronephrosis. There are a couple of small stones within the proximal ureter measuring up to 0.2 cm each. The left kidney is unremarkable without hydronephrosis. Bowel: There is no bowel obstruction. There is redemonstrated wall thickening of the pouch adjacent to the colostomy site which is more distended than on prior CT of 08/11/2020 measuring up to 11.1 x 10.9 cm. Surgical change of the colon. There is wall thickening seen within the bowel in the left mid and lower abdomen. There is mild inflammatory stranding surrounding the bowel and the pouch. Peritoneum: There is trace ascites. No intra-abdominal free air. No suspicious lymphadenopathy. Vasculature: Calcification of the aorta without aneurysm. Musculoskeletal: Degenerative changes of the spine without suspicious osseous lesion or compression fracture. Pelvis: The uterus and adnexa are normal. The urinary bladder is normal. IMPRESSION: 1. There are two stones within the proximal ureter measuring up to 0.2 cm which result in [id number] right hydronephrosis. 2. Wall thickening of the pouch and bowel within the left mid abdomen with surrounding inflammatory stranding. This could be seen with infectious or inflammatory enterocolitis. Dictated on workstation # [id number] Dict: 02/08/21 1640 Trans: 02/08/21 1649 [id number] Interpreted by: LEILANI VILLATORO DO Electronically signed by: (JERRY MARTINEZ APRN) Impression Primary Impression: fecal impaction of Frausto Pouch Additional Impressions: History of ulcerative colitis Pouchitis Disposition: HOME, SELF-CARE Condition: Stable Departure-Patient Inst. Decision time for Depature: 19:02 (JERRY MARTINEZ APRN) Referrals: DIEGO EMNDEZ MD (PCP/Family) Primary Care Physician Patient Instructions: Inflammatory Bowel Disease (DC) Add. Discharge Instructions: 1. Return to Er for any concerns 2. Follow up with Dr Diego mendez later this week. All discharge instructions reviewed with patient and/or family. Voiced understanding. Scripts Amoxicillin/Potassium Clav (Amox Tr-K Clv 500-125 mg Tab) 1 Each Tablet 1 EACH PO BID, #10 TAB Prov: JERRY MARTINEZ APRN 02/08/21 ATTENDING PHYSICIAN NOTE: I was physically present as attending physician in the emergency department during the care of this patient, but I was not directly involved in the decision making or delivery of care for this patient. (WILMER LOUISE MD) Copy Copies To 1: JONO MARSHALL JR, MD; DIEGO MENDEZ MD, PETER J APRN Feb 08, 2021 15:58 WILMER LOUISE MD Feb 10, 2021 09:03
[2021-02-08 16:05] LABS: BASOPHILS % (AUTO) 0 % (0-10); EOSINOPHILS # (AUTO) 0.2 10^3/uL (0.0-0.3); EOSINOPHILS % (AUTO) 3 % (0-10); HEMATOCRIT 36 % (35-52); HEMOGLOBIN 11.2 g/dL (11.5-16.0); LYMPHOCYTES # (AUTO) 1.7 10^3/uL (1.0-4.0); LYMPHOCYTES % (AUTO) 31 % (12-44); MEAN CORPUSCULAR HEMOGLOBIN 31 pg (25-34); MEAN CORPUSCULAR HGB CONC 32 g/dL (32-36); MEAN CORPUSCULAR VOLUME 100 fL (80-99); MEAN PLATELET VOLUME 11.7 fL (9.0-12.2); MONOCYTES # (AUTO) 0.6 10^3/uL (0.0-1.0); MONOCYTES % (AUTO) 10 % (0-12); NEUTROPHILS # (AUTO) 3.1 10^3/uL (1.8-7.8); NEUTROPHILS % (AUTO) 56 % (42-75); PLATELET COUNT 234 10^3/uL (130-400); WHITE BLOOD COUNT 5.6 10^3/uL (4.3-11.0)
[2021-02-08 16:10] LABS: ALBUMIN 3.8 GM/DL (3.2-4.5); POTASSIUM 4.7 MMOL/L (3.6-5.0)
[2021-02-08 16:11] LABS: CALCIUM 9.3 MG/DL (8.5-10.1)
[2021-02-08 16:12] LABS: TOTAL PROTEIN 7.4 GM/DL (6.4-8.2)
[2021-02-08 16:14] LABS: BILIRUBIN,TOTAL 0.3 MG/DL (0.1-1.0)
[2021-02-08 16:16] LABS: CREATININE SERUM 3.69 MG/DL (0.60-1.30)
[2021-02-08] MEDS ORDERED: MINERAL OIL ENEMA 133 ML BTL PR ONE (16:45)
--- NOTE | 2021-02-08 16:50 | Diagnostic Imaging Report ---
EXAMINATION: CT abdomen and pelvis without contrast. TECHNIQUE: Multiple contiguous axial images were obtained through the abdomen and pelvis without the use of intravenous contrast. All CT scans use one or more of the following dose optimizing techniques: Automated exposure control, MA and/or KvP adjustment based on patient size and exam type or iterative reconstruction. HISTORY: Abdominal pain. COMPARISON: 08/11/2020. FINDINGS: Lung bases: Bibasilar dependent atelectasis. Solid organs: The liver is normal. The gallbladder is surgically absent. There is no biliary ductal dilation. Pancreas is normal. Spleen is normal. Adrenal glands are normal. There is yamz-rd-chvsoabk right hydronephrosis. There are a couple of small stones within the proximal ureter measuring up to 0.2 cm each. The left kidney is unremarkable without hydronephrosis. Bowel: There is no bowel obstruction. There is redemonstrated wall thickening of the pouch adjacent to the colostomy site which is more distended than on prior CT of 08/11/2020 measuring up to 11.1 x 10.9 cm. Surgical change of the colon. There is wall thickening seen within the bowel in the left mid and lower abdomen. There is mild inflammatory stranding surrounding the bowel and the pouch. Peritoneum: There is trace ascites. No intra-abdominal free air. No suspicious lymphadenopathy. Vasculature: Calcification of the aorta without aneurysm. Musculoskeletal: Degenerative changes of the spine without suspicious osseous lesion or compression fracture. Pelvis: The uterus and adnexa are normal. The urinary bladder is normal. IMPRESSION: 1. There are two stones within the proximal ureter measuring up to 0.2 cm which result in [id number] right hydronephrosis. 2. Wall thickening of the pouch and bowel within the left mid abdomen with surrounding inflammatory stranding. This could be seen with infectious or inflammatory enterocolitis. Dictated by: Dictated on workstation # [id number]
[2021-02-08] MEDS ORDERED: cefTRIAXone 1 GM PRE-MIX 50 ML IV ONE (17:00)
[2021-02-08] MEDS ORDERED: metroNIDAZOLE 500MG/100ML IVPB 100 ML IV ONE (17:00)
--- NOTE | 2021-02-08 17:10 | Diagnostic Imaging Report ---
EXAMINATION: Portable erect AP chest at 4:41 pm INDICATION: Shortness of breath The heart size is stable when compared to the prior exam of 08/11/2020. The lungs remain generally clear. There is no sign of failure, pneumonia or pleural effusion. The mediastinum is not widened. The osseous structures are intact. External cardiac monitoring electrodes are noted. IMPRESSION: There is no evidence for active disease. When compared to the prior study, there has been no significant change. Dictated by: Dictated on workstation # [id number]
[2021-02-08] MEDS ORDERED: LIDOCAINE 1% INJ 20 ML 20 ML VIAL INJ ONE (18:00)
[2021-02-08] MEDS ORDERED: cefTRIAXone 1,000 MG VIAL IM ONE (18:00)
[2021-02-08] MEDS ORDERED: metroNIDAZOLE 500 MG (FLAGYL) TAB PO ONE (18:00)
[2021-02-08 18:50] LABS: BILIRUBIN,URINE NEGATIVE (NEGATIVE); CLARITY,URINE CLEAR; COLOR,URINE YELLOW; GLUCOSE, URINE (UA) TRACE (NEGATIVE); KETONES,URINE NEGATIVE (NEGATIVE); LEUKOCYTE ESTERASE ,URINE NEGATIVE (NEGATIVE); NITRITE,URINE NEGATIVE (NEGATIVE); PROTEIN,URINE 3+ (NEGATIVE)
[2021-02-08 18:59] LABS: BACTERIA,URINE NEGATIVE /HPF; SQUAMOUS EPITHELIAL CELL,UR 0-2 /HPF; WBC,URINE 0-2 /HPF
[2021-02-08] MEDS ORDERED: AMOX1TAB11 PO (19:04)
[2021-02-08 19:35] VITALS: BP 143/67
== END 2021-02-08 19:33 | disposition home or self-care (01) ==
LOC: EDUNIT# 15:04 → ER 15:09
DX: K56.41 Fecal impaction (principal); K91.850 Pouchitis; I12.9 Hypertensive chronic kidney disease with stage 1 through stage 4 chronic kidney disease, or unspecified chronic kidney disease; N18.9 Chronic kidney disease, unspecified; E11.22 Type 2 diabetes mellitus with diabetic chronic kidney disease; Z87.19 Personal history of other diseases of the digestive system; Z90.49 Acquired absence of other specified parts of digestive tract; Z93.2 Ileostomy status; Z20.822 Contact with and (suspected) exposure to COVID-19; Z88.2 Allergy status to sulfonamides; Z88.8 Allergy status to other drugs, medicaments and biological substances; Z79.4 Long term (current) use of insulin; Z79.84 Long term (current) use of oral hypoglycemic drugs; Z79.899 Other long term (current) drug therapy
CPT/HCPCS: 36415; 71045; 74176; 80053; 81000; 83880; 84484; 85025; 86141; 87636

== ENCOUNTER 2021-02-18 13:10 | Outpatient (RCR) | payer MEDICARE, OTHER ==
[~2021-02-18] VITALS: Ht 172.7 cm; Wt 52.2 kg
[~2021-02-18 13:10] MED LIST changes: +AMOX1TAB11 PO
[2021-02-18] MEDS ORDERED: LIDOCAINE PF 1% 5 ML (XYLOCAINE) AMP ONE (13:59)
[2021-02-18] MEDS ORDERED: IRON SUCROSE 200 MG/10 ML (VENOFER) VIAL IV SCH (14:00)
[2021-02-18 14:33] VITALS: BP 141/76
[2021-02-21] MEDS ORDERED: GABA-486 PO (12:45)
[2021-02-21] MEDS ORDERED: ATEN50TA PO (12:45)
[2021-02-21] MEDS ORDERED: AMLO-250 PO (12:45)
[2021-02-21] MEDS ORDERED: AMLO-251 PO (12:47)
[2021-02-21] MEDS ORDERED: NF-SODBICA PO (12:48)
[2021-02-21] MEDS ORDERED: FERR-84 PO (12:51)
[2021-02-21] MEDS ORDERED: DIPH50CA33 PO (12:53)
[2021-02-21] MEDS ORDERED: NAPR1TAB PO (12:54)
[2021-02-21] MEDS ORDERED: ACET-2267 PO (12:54)
[2021-02-21] MEDS ORDERED: OXYM30SP25 NS (12:55)
[2021-02-21] MEDS ORDERED: HYLAND LEG CRAMPS PO (12:59)
[2021-02-21] MEDS ORDERED: MERO1PIG IV (18:51)
[2021-02-21] MEDS ORDERED: HEPA500018 SC (18:51)
== END 2021-03-14 | disposition home or self-care (01) ==
LOC: SDC 13:10
PROVIDERS: ATTEND Internal Medicine Nephrology
DX: D63.1 Anemia in chronic kidney disease (principal); N18.9 Chronic kidney disease, unspecified
CPT/HCPCS: 96365

== ENCOUNTER 2021-02-20 14:43 | Inpatient (IN) | payer MEDICARE, OTHER ==
[~2021-02-20] VITALS: Ht 173 cm; Wt 64.7 kg
--- NOTE | 2021-02-20 14:57 | ED GI ---
General Chief Complaint: Abdominal/GI Problems Stated Complaint: N/V Source of Information: Patient Exam Limitations: No Limitations History of Present Illness Date Seen by Provider: Feb 20, 2021 Time Seen by Provider: 14:36 Initial Comments Patient to ER by EMS from home with chief complaint of intractable nausea vomiting and copious loose output through her ileostomy. Patient states has had subjective fevers. She is had anorexia. Her told EMS that she has been having symptoms for about 3 to 4 days. She says she has had problems with nausea off and on for the past 3 weeks. She was in the ER and worked up for this and sent home. She has an ileostomy due to history of Ulcerative colitis. No dysuria. She has not had anything for nausea. She is a diabetic who uses insulin. EMS was unable to establish an IV on route. She states her blood sugars have been normal. She states she had negative COVID and influenza swabs 2 or 3 weeks ago. Patient states she is in between doctors at this time. She has a history of chronic kidney disease. History of colon resection secondary to ulcerative colitis. She was noted to have 2 proximal ureteral stones and pouchitis when seen here on 08 February, nearly 2 weeks ago. Allergies and Home Medications Allergies Coded Allergies: Morpholine Analogues (Verified Allergy, Unknown, 02/08/21) Sulfa (Sulfonamide Antibiotics) (Verified Allergy, Unknown, 06/11/06) iodine (Verified Allergy, Unknown, 01/17/20) Patient Home Medication List Home Medication List Reviewed: Yes Amoxicillin/Potassium Clav (Amox Tr-K Clv 500-125 mg Tab) 1 Each Tablet, 1 EACH PO BID Prescribed by: JERRY MARTINEZ on 02/08/21 1904 Aripiprazole (Aripiprazole) 5 Mg Tablet, 5 MG PO HS, (Reported) Entered as Reported by: NYASIA JOHNSON on 07/29/20 1331 Gabapentin (Gabapentin) 100 Mg Capsule, 200 MG PO HS, (Reported) Entered as Reported by: NYASIA JOHNSON on 01/16/20 1412 Insulin Detemir (Levemir Flextouch) 100 Unit/1 Ml Insuln.pen, 13 UNIT SQ HS, (Reported) Entered as Reported by: NYASIA JOHNSON on 07/29/20 1331 Liraglutide (Victoza 3-Raj) 0.6 Mg/0.1 Ml Pen.injctr, 0.6 MG SC DAILY, (Reported) Entered as Reported by: NYASIA JOHNSON on 07/29/20 1331 Losartan Potassium (Losartan Potassium) 100 Mg Tablet, 100 MG PO HS, (Reported) Entered as Reported by: NYASIA JOHNSON on 07/29/20 1331 Review of Systems Review of Systems Constitutional: No chills, No diaphoresis EENTM: No Blurred Vision, No Double Vision Respiratory: Denies Cough, Denies Shortness of Air Cardiovascular: Denies Chest Pain, Denies Lightheadedness Gastrointestinal: Denies Constipated, Denies Diarrhea Past Sohwgjd-Dccmlz-Wqnznp Hx Immunizations Up To Date First/Initial COVID19 Vaccinat: 05/23/2020 Seasonal Allergies Seasonal Allergies: No Past Medical History Surgeries: Yes (COLECTOMY,APPY,POUCH FROM SM.INTESTINE,ADHESIONS,D&C,STOMA CLOSURE) Respiratory: No Cardiac: Yes Hypertension Neurological: No Reproductive Disorders: No Gastrointestinal: Yes (ulcerative colitis status post colectomy and ileostomy) Musculoskeletal: No Endocrine: Yes Diabetes, Insulin dep HEENT: No Cancer: No Psychosocial: Yes Blood Disorders: No Family Medical History No Pertinent Family Hx Physical Exam Vital Signs Vital Signs - First Documented 02/20/21 15:00 Temp 36.4 Pulse 82 Resp 16 B/P (MAP) 127/48 (74) Pulse Ox 98 Capillary Refill : Height/Weight/BMI Height: 5'6.00" Weight: 134lbs. 0.5oz. 60.368247tx; 18.00 BMI Method:Stated General Appearance: mild distress, thin, other (Chronically ill) HEENT: PERRL/EOMI, TMs normal, pharynx normal Neck: non-tender, full range of motion, supple, normal inspection Respiratory: lungs clear, normal breath sounds, no respiratory distress, no accessory muscle use Cardiovascular: normal peripheral pulses, regular rate, rhythm Peripheral Pulses: 2+ Radial Pulses (R), 2+ Radial Pulses (L) Gastrointestinal: normal bowel sounds, non tender, soft, other (Ileostomy stoma is hal pink without exudate or breakdown.) Extremities: non-tender, normal inspection, normal capillary refill Neurologic/Psychiatric: alert, normal mood/affect, oriented x 3 Skin: normal color, warm/dry Progress/Results/Core Measures Results/Orders Lab Results Laboratory Tests Test 02/20/21 14:50 02/20/21 14:52 02/20/21 16:58 Range/Units White Blood Count 6.2 4.3-11.0 10^3/uL Red Blood Count 3.23 L 3.80-5.11 10^6/uL Hemoglobin 10.2 L 11.5-16.0 g/dL Hematocrit 33 L 35-52 % Mean Corpuscular Volume 102 H 80-99 fL Mean Corpuscular Hemoglobin 32 25-34 pg Mean Corpuscular Hemoglobin Concent 31 L 32-36 g/dL Red Cell Distribution Width 13.7 10.0-14.5 % Platelet Count 428 H 130-400 10^3/uL Mean Platelet Volume 12.1 9.0-12.2 fL Immature Granulocyte % (Auto) 1 % Neutrophils (%) (Auto) 77 H 42-75 % Lymphocytes (%) (Auto) 14 12-44 % Monocytes (%) (Auto) 8 0-12 % Eosinophils (%) (Auto) 0 0-10 % Basophils (%) (Auto) 1 0-10 % Neutrophils # (Auto) 4.8 1.8-7.8 10^3/uL Lymphocytes # (Auto) 0.9 L 1.0-4.0 10^3/uL Monocytes # (Auto) 0.5 0.0-1.0 10^3/uL Eosinophils # (Auto) 0.0 0.0-0.3 10^3/uL Basophils # (Auto) 0.1 0.0-0.1 10^3/uL Immature Granulocyte # (Auto) 0.0 0.0-0.1 10^3/uL Neutrophils % (Manual) 64 % Lymphocytes % (Manual) 24 % Monocytes % (Manual) 7 % Eosinophils % (Manual) 2 % Band Neutrophils 3 % Blood Morphology Comment NORMAL Sodium Level 143 135-145 MMOL/L Potassium Level 5.3 H 3.6-5.0 MMOL/L Chloride Level 108 H 98-107 MMOL/L Carbon Dioxide Level 19 L 21-32 MMOL/L Anion Gap 16 H 5-14 MMOL/L Blood Urea Nitrogen 67 H 7-18 MG/DL Creatinine 3.68 H 0.60-1.30 MG/DL Estimat Glomerular Filtration Rate 12 BUN/Creatinine Ratio 18 Glucose Level 138 H 70-105 MG/DL Calcium Level 9.6 8.5-10.1 MG/DL Corrected Calcium 10.2 H 8.5-10.1 MG/DL Total Bilirubin 0.4 0.1-1.0 MG/DL Aspartate Amino Transf (AST/SGOT) 21 5-34 U/L Alanine Aminotransferase (ALT/SGPT) 22 0-55 U/L Alkaline Phosphatase 71 40-136 U/L C-Reactive Protein High Sensitivity 8.65 H 0.00-0.50 MG/DL Total Protein 6.7 6.4-8.2 GM/DL Albumin 3.2 3.2-4.5 GM/DL Influenza Type A (RT-PCR) Not Detected Not Detecte Influenza Type B (RT-PCR) Not Detected Not Detecte SARS-CoV-2 RNA (RT-PCR) Not Detected Not Detecte My Orders Orders - GREER REED Covid 19 Inhouse Test (02/20/21 14:52) Influenza A And B By Pcr (02/20/21 14:52) Ed Iv/Invasive Line Start (02/20/21 14:52) Ns Iv 1000 Ml (Sodium Chloride 0.9%) (02/20/21 15:00) Ondansetron Injection (Zofran Injectio (02/20/21 15:00) Pantoprazole Injection (Protonix Injecti (02/20/21 15:00) Cbc With Automated Diff (02/20/21 14:52) Comprehensive Metabolic Panel (02/20/21 14:52) Hs C Reactive Protein (02/20/21 14:52) Ua Culture If Indicated (02/20/21 14:57) Manual Differential (02/20/21 14:50) Ct Abdomen/Pelvis Wo (02/20/21 15:03) Diphenhydramine Injection (Benadryl Inje (02/20/21 15:15) Medications Given in ED Current Medications Medications Dose Ordered Sig/Josh Route Start Time Stop Time Status Last Admin Dose Admin Ondansetron HCl 8 mg ONCE ONCE IVP 02/20/21 15:00 02/20/21 15:01 DC 02/20/21 15:07 8 MG Pantoprazole 40 mg ONCE ONCE IV 02/20/21 15:00 02/20/21 15:01 DC 02/20/21 15:07 40 MG Vital Signs/I&O 02/20/21 15:00 Temp 36.4 Pulse 82 Resp 16 B/P (MAP) 127/48 (74) Pulse Ox 98 Progress Progress Note : Time: 15:01 Progress Note Plan to CT her abdomen pelvis to see if her ureteral stones have passed. We will give her a liter of fluids, 8 of Zofran and she is not expressing any pain at this time. We will check labs and urinalysis. COVID and influenza swabs Diagnostic Imaging Diagonstic Imaging: CT Plain Films/CT/US/NM/MRI: abdomen, pelvis Comments [facility] [place], [place] NAME: DEBORAH CRUZ [facility] REC#: [id number] PT STATUS: REG ER : 1945 PHYSICIAN: GREER REED MD ADMIT DATE: 02/20/21/ER Draft Date of Exam:02/20/21 CT ABDOMEN/PELVIS WO CT abdomen/pelvis w/o. TECHNIQUE: Unenhanced CT imaging of the abdomen and pelvis was performed. 2-D reformats are created and submitted for interpretation. Automatic exposure controls were utilized to optimize patient dose. INDICATION: Intractable nausea. COMPARISON: CT abdomen and pelvis of 01/19/2021. FINDINGS: Evaluation of the abdominal viscera is mildly limited without contrast. Lower chest: Groundglass attenuation is present in the right middle lobe and new since prior examination. Trace bilateral pleural effusions. Peritoneum: No free intraperitoneal air or fluid. Liver and biliary system: Unenhanced liver is normal. Cholecystectomy. No biliary duct dilatation. Spleen and Pancreas: Spleen is normal. Unenhanced pancreas is grossly normal. Adrenals: Normal. tract: Bilateral hydronephrosis has developed and dilation of the ureters likely due to obstruction but from the large right lower quadrant collection. Uterus is unremarkable. GI tract: The small bowel is now diffusely fluid-filled and dilated measuring up to 4 cm. Colectomy has likely been performed. There remains a large stool filled collection in the right lower quadrant measuring 13 x 13 x 16 cm. Adjacent loop of bowel in the left lower quadrant abuts this region and is now stool-filled as well. The right lower quadrant ostomy is in place and the large collection within the bowel medially is beneath the right lower quadrant osteotomy. Vasculature and Lymph nodes: Normal caliber aorta. No abdominal or pelvic lymphadenopathy. Musculoskeletal: No concerning osseous lesion. IMPRESSION: 1. There are now features of bowel obstruction. There appears to be an ostomy in the right lower quadrant and just beneath the stoma, there is a large stool-filled collection measuring up to 13 x 13 cm, similar to prior examination. This could be due to a stricture at the stoma site and correlation with the stoma output is advised. 2. The bowel loops are dilated up to the level of this structure and further support obstruction at the output of the stoma. 3. No free intraperitoneal air. 4. Trace right pleural effusion and new right middle lobe opacities. This could be infectious in etiology or due to aspiration. Dictated on workstation # [id number] Dict: 02/20/21 1638 Trans: 02/20/21 1656 [facility] [id number] Interpreted by: RUT BISHOP MD Electronically signed by: Reviewed: Reviewed by Me Departure Communication (Admissions) Time/Spoke to Admitting Phy: 16:54 Dr. Gilbert agrees to admit the patient for the patient/obstruction of the bowel and consult general surgery. Time/Spoke to Consulting Phy: 16:46 Discussed the case with Dr. York and he agrees to consult on the case. He recommends MiraLAX and Fleet enema. He will then evaluate her to see if she needs a manual disimpaction. Impression Primary Impression: Obstipation Additional Impressions: Small bowel obstruction Dehydration Disposition: 01 HOME, SELF-CARE Condition: Stable Admissions Decision to Admit Reason: Admit from ER (General) Decision to Admit/Date: Feb 20, 2021 Time/Decision to Admit Time: 16:40 Departure-Patient Inst. Referrals: CAMILLE MENDEZ MD (PCP/Family) Primary Care Physician GREER REED Feb 20, 2021 14:57
[2021-02-20 14:59] LABS: BASOPHILS # (AUTO) 0.1 10^3/uL (0.0-0.1); BASOPHILS % (AUTO) 1 % (0-10); EOSINOPHILS % (AUTO) 0 % (0-10); HEMATOCRIT 33 % (35-52); HEMOGLOBIN 10.2 g/dL (11.5-16.0); LYMPHOCYTES # (AUTO) 0.9 10^3/uL (1.0-4.0); LYMPHOCYTES % (AUTO) 14 % (12-44); MEAN CORPUSCULAR HEMOGLOBIN 32 pg (25-34); MEAN CORPUSCULAR HGB CONC 31 g/dL (32-36); MEAN CORPUSCULAR VOLUME 102 fL (80-99); MEAN PLATELET VOLUME 12.1 fL (9.0-12.2); MONOCYTES # (AUTO) 0.5 10^3/uL (0.0-1.0); MONOCYTES % (AUTO) 8 % (0-12); NEUTROPHILS # (AUTO) 4.8 10^3/uL (1.8-7.8); NEUTROPHILS % (AUTO) 77 % (42-75); PLATELET COUNT 428 10^3/uL (130-400); WHITE BLOOD COUNT 6.2 10^3/uL (4.3-11.0)
[2021-02-20] MEDS ORDERED: NS IV 1000 ML 1,000 ML IV SCH (15:00)
[2021-02-20] MEDS ORDERED: ONDANSETRON 4 MG/2 ML (SDV) Z0FRAN IVP ONE (15:00)
[2021-02-20] MEDS ORDERED: PANTOPRAZOLE 40 MG (PROTONIX) VIAL IV ONE (15:00)
[2021-02-20 15:06] LABS: ALBUMIN 3.2 GM/DL (3.2-4.5); POTASSIUM 5.3 MMOL/L (3.6-5.0)
[2021-02-20 15:08] LABS: CALCIUM 9.6 MG/DL (8.5-10.1)
[2021-02-20 15:09] LABS: TOTAL PROTEIN 6.7 GM/DL (6.4-8.2)
[2021-02-20 15:11] LABS: BILIRUBIN,TOTAL 0.4 MG/DL (0.1-1.0)
[2021-02-20 15:13] LABS: CREATININE SERUM 3.68 MG/DL (0.60-1.30)
[2021-02-20] MEDS ORDERED: diphenhydrAMINE 50 MG/ML INJ (BENADRYL) IVP ONE (15:15)
[2021-02-20 15:26] LABS: BAND NEUTROPHILS 3 %; EOSINOPHILS % (MANUAL) 2 %; LYMPHOCYTES % (MANUAL) 24 %; MONOCYTES % (MANUAL) 7 %; NEUTROPHILS % (MANUAL) 64 %; RBC MORPH NORMAL
--- NOTE | 2021-02-20 16:57 | Diagnostic Imaging Report ---
CT abdomen/pelvis w/o. TECHNIQUE: Unenhanced CT imaging of the abdomen and pelvis was performed. 2-D reformats are created and submitted for interpretation. Automatic exposure controls were utilized to optimize patient dose. INDICATION: Intractable nausea. COMPARISON: CT abdomen and pelvis of 01/19/2021. FINDINGS: Evaluation of the abdominal viscera is mildly limited without contrast. Lower chest: Groundglass attenuation is present in the right middle lobe and new since prior examination. Trace bilateral pleural effusions. Peritoneum: No free intraperitoneal air or fluid. Liver and biliary system: Unenhanced liver is normal. Cholecystectomy. No biliary duct dilatation. Spleen and Pancreas: Spleen is normal. Unenhanced pancreas is grossly normal. Adrenals: Normal. tract: Bilateral hydronephrosis has developed and dilation of the ureters likely due to obstruction but from the large right lower quadrant collection. Uterus is unremarkable. GI tract: The small bowel is now diffusely fluid-filled and dilated measuring up to 4 cm. Colectomy has likely been performed. There remains a large stool filled collection in the right lower quadrant measuring 13 x 13 x 16 cm. Adjacent loop of bowel in the left lower quadrant abuts this region and is now stool-filled as well. The right lower quadrant ostomy is in place and the large collection within the bowel medially is beneath the right lower quadrant osteotomy. Vasculature and Lymph nodes: Normal caliber aorta. No abdominal or pelvic lymphadenopathy. Musculoskeletal: No concerning osseous lesion. IMPRESSION: 1. There are now features of bowel obstruction. There appears to be an ostomy in the right lower quadrant and just beneath the stoma, there is a large stool-filled segment of bowel measuring up to 13 x 13 cm, similar to prior examination. This could be due to a stricture at the stoma site and correlation with the stoma output is advised. 2. The other small bowel loops are dilated up to the level of this structure and further support obstruction at the output of the stoma. 3. No free intraperitoneal air. 4. Trace right pleural effusion and new right middle lobe opacities. This could be infectious in etiology or due to aspiration. Dictated by: Dictated on workstation # [id number]
[2021-02-20 17:04] LABS: BILIRUBIN,URINE NEGATIVE (NEGATIVE); CLARITY,URINE SL CLOUDY; COLOR,URINE YELLOW; GLUCOSE, URINE (UA) TRACE (NEGATIVE); KETONES,URINE NEGATIVE (NEGATIVE); LEUKOCYTE ESTERASE ,URINE NEGATIVE (NEGATIVE); NITRITE,URINE NEGATIVE (NEGATIVE); PH,URINE 5.5 (5-9); PROTEIN,URINE 2+ (NEGATIVE)
[2021-02-20 17:15] LABS: BACTERIA,URINE FEW /HPF; RBC,URINE 0-2 /HPF; WBC,URINE 0-2 /HPF
[2021-02-20] MEDS ORDERED: MELATONIN 3 MG TABLET PO PRN (19:30)
[2021-02-20] MEDS ORDERED: ONDANSETRON 4 MG (ZOFRAN) ORAL DISSOLVE TAB PO PRN (19:30)
[2021-02-20] MEDS ORDERED: ACETAMINOPHEN 325 MG TABLET PO PRN (19:30)
[2021-02-20 20:00] VITALS: BP 113/53
--- NOTE | 2021-02-20 20:41 | CONSULTATION REPORT ---
DATE OF SERVICE: ATTENDING PRIMARY CARE PHYSICIAN: Dr. Diego Chung. ADMITTING PHYSICIAN: Dr. Gilbert. HISTORY OF PRESENT ILLNESS: The patient is a 75-year-old female, who presented to the Emergency Department with nausea and vomiting and copious amounts of loose stools through her ileostomy. She states that with the nausea and vomiting, she has also had a lack of appetite. The patient's states that she has felt this way for the past several days. She also did have a similar occurrence approximately 2 weeks ago and found to have 2 proximal ureteral stones as well as what appeared to be a fecal impaction within the small bowel pouch. She has a history of ulcerative colitis and underwent a subtotal colectomy, small bowel pouch, reservoir creation as well as end ileostomy. On this admission, a CT scan again did show a significant amount of fecalized stool within the small bowel pouch. PAST MEDICAL HISTORY: Ulcerative colitis, diabetes, hypertension. PAST SURGICAL HISTORY: Subtotal colectomy, appendectomy, small bowel pouch and end ileostomy. ALLERGIES: MORPHINE, SULFA, IODINE. MEDICATIONS: Augmentin b.i.d., aripiprazole 5 mg daily, gabapentin 200 mg daily, detemir insulin 13 units at bedtime, liraglutide 0.6 mg daily, losartan 100 mg daily. SOCIAL HISTORY: Negative smoke, negative alcohol. VITAL SIGNS: Temperature 36.4, blood pressure 127/48, pulse 84, respirations 16, pulse ox 98% on room air. REVIEW OF SYSTEMS: Well-nourished female currently in no acute distress. She is not experiencing any shortness of breath or difficulty breathing. No chest pain, palpitations, diaphoresis. Intermittent episodes of nausea and vomiting as well as anorexia as well as a significant amount of liquidy stools coming from her end ileostomy and no red blood per ostomy or any dark tarry stools. She is also experiencing abdominal distention. No fever, chills, no recent inadvertent weight loss. All other review of systems negative. PHYSICAL EXAMINATION: CHEST: Clear. Good breath sounds bilaterally. HEART: Regular, no murmurs. EXTREMITIES: No lower extremity edema, negative Homans sign. HEENT: No scleral icterus. NECK: No cervical lymphadenopathy. ABDOMEN: Soft, slightly distended. There is firmness just inferior to the ostomy. No hernias, no peritoneal signs. SKIN: Warm, dry. LABORATORY DATA: WBC 6.2, hemoglobin 10.2, hematocrit 33, platelets 428, BUN 67, creatinine 3.68. ASSESSMENT AND PLAN: A 75-year-old female with fecal impaction within her small bowel pouch and possibly related to stomal stricture. We will initially start with conservative management with gentle laxatives with MiraLax b.i.d. as well as Fleet's enema through the ostomy. If significant strictures identified upon examination, she may need revision of the ostomy to increase the luminal diameter. Job ID: [id number] DocumentID: [id number] Dictated Date: 02/20/2021 19:48:06 Skid Machine Operator Date: 02/20/2021 20:40:43 Dictated By: HARRISON CHU MD
[2021-02-20] MEDS ORDERED: GABAPENTIN 100 MG (NEURONTIN) CAP PO SCH (21:22)
[2021-02-20] MEDS ORDERED: fentaNYL INJ 100 MCG/2 ML AMP IV PRN (21:30)
[2021-02-20] MEDS ORDERED: FLEET ENEMA ADULT 1 EA BTL ONE (21:33)
[2021-02-20] MEDS: inSUlin ASPART (NovoLOG) 1 UNIT/0.01 ML (CHARGE PER UNIT) SC SCH (21:35)
[2021-02-20] MEDS: polyethylene glycoL POWDER 17 GM (MIRALAX) PACK PO SCH (21:45)
[2021-02-20] MEDS: 1/2 NS IV SOLUTION 1,000 ML IV SCH ×2 (21:46→21:55)
[2021-02-20] MEDS: FLEET ENEMA ADULT 1 EA BTL PR SCH (21:53)
[2021-02-20] MEDS: fentaNYL INJ 100 MCG/2 ML AMP IV PRN (23:13)
[2021-02-21] VITALS (16 sets, daily range): BP systolic 91–115; BP diastolic 26–75
[2021-02-21] MEDS: ONDANSETRON 4 MG/2 ML (SDV) Z0FRAN IV PRN ×2 (01:20→10:27)
[2021-02-21] MEDS: fentaNYL INJ 100 MCG/2 ML AMP IV PRN ×3 (01:21→08:06)
[2021-02-21 06:00] LABS: BASOPHILS # (AUTO) 0.1 10^3/uL (0.0-0.1); BASOPHILS % (AUTO) 1 % (0-10); EOSINOPHILS % (AUTO) 0 % (0-10); HEMATOCRIT 31 % (35-52); HEMOGLOBIN 9.5 g/dL (11.5-16.0); LYMPHOCYTES # (AUTO) 0.7 10^3/uL (1.0-4.0); LYMPHOCYTES % (AUTO) 7 % (12-44); MEAN CORPUSCULAR HEMOGLOBIN 31 pg (25-34); MEAN CORPUSCULAR HGB CONC 31 g/dL (32-36); MEAN CORPUSCULAR VOLUME 100 fL (80-99); MEAN PLATELET VOLUME 12.8 fL (9.0-12.2); MONOCYTES % (AUTO) 10 % (0-12); NEUTROPHILS % (AUTO) 81 % (42-75); PLATELET COUNT 342 10^3/uL (130-400); WHITE BLOOD COUNT 9.9 10^3/uL (4.3-11.0)
[2021-02-21 06:14] LABS: POTASSIUM 5.2 MMOL/L (3.6-5.0)
[2021-02-21 06:15] LABS: CALCIUM 8.5 MG/DL (8.5-10.1)
[2021-02-21 06:19] LABS: CREATININE SERUM 3.87 MG/DL (0.60-1.30)
[2021-02-21] MEDS: inSUlin ASPART (NovoLOG) 1 UNIT/0.01 ML (CHARGE PER UNIT) SC SCH ×3 (06:37→17:18)
[2021-02-21] MEDS: 1/2 NS IV SOLUTION 1,000 ML IV SCH ×2 (08:05→15:57)
[2021-02-21] MEDS ORDERED: WATER (STERILE) FOR INJ 10 ML BTL INJ SCH (09:30)
[2021-02-21] MEDS ORDERED: ZIPRASIDONE 20 MG INJ (GEODON) VIAL IM PRN (09:30)
[2021-02-21] MEDS ORDERED: LORazepam INJ 2 MG/ML (ATIVAN) VIAL IVP PRN (09:30)
[2021-02-21] MEDS: polyethylene glycoL POWDER 17 GM (MIRALAX) PACK PO SCH (10:27)
[2021-02-21] MEDS: FLEET ENEMA ADULT 1 EA BTL PR SCH (10:27)
--- NOTE | 2021-02-21 10:37 | History & Physical-Hospitalist ---
SHANNA HERNANDEZ 02/21/21 1037: History of Present Illness HPI/Chief Complaint This is a 75 y/o female with a PMH of UC s/p colectomy w/ end ileostomy is bro ught to the ED via EMS for nausea, vomiting, and increased output from her ileostomy. Per EMS report, her states that she has been acutely ill for the past 3-4 days, reporting fevers, nausea, and anorexia. She had been feeling nausea for the past 3 weeks, and was evaluated in the ED and discharged. On 02/08/21, the patient was seen at [facility] and noted to have pouchitis and ureteral stones. Currently, the patient is confused, but is able to state that she is feeling pain in her abdomen. . Source: EMS Date Seen 02/21/21 Time Seen by a Provider: 10:00 Attending Physician Anamaria Gilbert MD PCP Diego Chung MD Referring Physician Date of Admission Feb 20, 2021 at 17:00 Home Medications & Allergies Home Medications Reviewed patient Home Medication Reconciliation performed by pharmacy medication reconciliations mechanical system technician and/or nursing. Patients Allergies have been reviewed. Allergies Allergies Coded Allergies Morpholine Analogues (Verified Allergy, Unknown, 02/08/21) Sulfa (Sulfonamide Antibiotics) (Verified Allergy, Unknown, 06/11/06) iodine (Verified Allergy, Unknown, 01/17/20) Past Qmaqpth-Lcfaeq-Glfmbq Hx Patient Social History Marrital Status: Tobacco Use?: No Smoking Status: Never a Smoker Use of E-Cig and/or Vaping dev: No Substance use?: No Alcohol Use?: No Pt feels they are or have been: No Immunizations Up To Date Date of Influenza Vaccine: Feb 12, 2021 First/Initial COVID19 Vaccinat: J&J Second COVID19 Vaccination [place]: 05/23/2020 Tetanus Booster (TDap): Unknown Seasonal Allergies Seasonal Allergies: No Current Status status: No Advance Directives: No Communicates: Verbally Primary Language: Yi Preferred Spoken Language: Yi Is interpretation needed?: No Sensory deficits: Vision impairment Past Medical History Surgeries: Abdominal (Colectomy and end ileostomy), Appendectomy Hypertension Diabetes, Insulin dep Blood Disorders: No Family Medical History No Pertinent Family Hx Review of Systems Constitutional: fever EENTM: no symptoms reported Respiratory: no symptoms reported Cardiovascular: No chest pain Gastrointestinal: abdominal pain, loss of appetite, nausea, vomiting Genitourinary: No discharge, No dysuria Musculoskeletal: no symptoms reported Skin: no symptoms reported Psychiatric/Neurological: No Symptoms Reported Physical Exam Physical Exam Vital Signs Vital Signs - First Documented 02/20/21 02/20/21 15:00 18:51 Temp 36.4 Pulse 82 Resp 16 B/P (MAP) 127/48 (74) Pulse Ox 98 O2 Delivery Room Air Capillary Refill : Less Than 3 Seconds Height, Weight, BMI Height: 5'6.00" Weight: 134lbs. 0.5oz. 60.091183np; 21.61 BMI Method:Stated General Appearance: Thin, Other (appears confused) Eyes: Bilateral Eye Normal Inspection, Bilateral Eye PERRL, Bilateral Eye EOMI HEENT: PERRL/EOMI Neck: Non Tender Respiratory: Chest Non Tender, Lungs Clear, No Accessory Muscle Use, No Respiratory Distress Cardiovascular: Regular Rate, Rhythm, No Gallop, No Murmur Gastrointestinal: Abnormal Bowel Sounds (diminished), Distended, Tenderness Rectal: Deferred Neurologic/Psychiatric: Alert, Disoriented Skin: Normal Color, Warm/Dry Results Results/Procedures Labs Laboratory Tests 02/20/21 14:50 02/21/21 05:32 Patient resulted labs reviewed. Imaging: Reviewed Imaging Report Assessment/Plan Admission Diagnosis Small bowel obstruction Admission Status: Inpatient Order (span 2 midnights) Reason for Inpatient Admission: Small bowel obstruction Assessment and Plan This is a 75 y/o female with a PMH of UC s/p colectomy w/ end ileostomy with a physical exam and imaging concerning for small bowel obstruction Diagnosis/Problems Diagnosis/Problems (1) Small bowel obstruction Onset Date: ~ 02/2021 Status: Acute Assessment & Plan: CT A/P shows diffuse distention and dilatation of the small bowel, which is fluid filled and dilated to 4cm. There is a large stool burden immediately prior to the ileostomy, which is concerning for stomal stricture. - Likely represents obstruction - NPO, bowel rest, NGT + LIWS - IVF w/ NS @ 125ml/hr - Minimize narcotic use - Correct electrolytes PRN - MiraLAX 34g daily - consider daily AM KUBs - surgery consulted; appreciate recs (2) Acute kidney injury superimposed on chronic kidney disease Onset Date: ~ 02/2021 Status: Acute Assessment & Plan: - likely 2/2 obstruction - unknown BL Cr - Cr 3.68 on admission - today Cr 3.87 / GFR 11(worsening renal function) - CT 02/20/21 showing bilateral hydronephrosis and dilated ureters - consider renal u/s - UA 2+ protein, trace glucose, trace blood, -ketones - Urine output at 0.19 ml/kg/hr yesterday; 0.05 ml/kg/hr so far today - Lopez in place - caution nephrotoxins, contrast, NSAIDS, ACEI/ARB, HCTZ, yaquelin - strict I&O, daily WTs, daily AM RFPs - if GFR <20% chronically -> likely will need CRRT in near future, if progress to that point will need surgery to place dialysis cath - Consult urology; appreciate recs (3) Diabetes mellitus type 2, insulin dependent Status: Chronic Assessment & Plan: -A1c 9.1% (01/2020) -Home regimen: Levemir 13 units HS; Victoza 0.6 mg QD -Inpatient regimen: Insulin SS -Glucose monitoring AC/HS JON SILVA DO 02/22/21 0516: History of Present Illness HPI/Chief Complaint CC: abdominal pain with ileostomy obstruction HPI: 75 yr old WF with a past medical history of dementia and diverting ileostomy due to ulcerative colitis. Pt presented with obstruction at the ileostomy site. Dr. York consulted. Pt is using Miralax and fleet enema. Pt is very agitated and will require Geodon and Ativan to calm her down. Chronic kidney disease creatinine of 3.8. We will have urology evaluate the possible hydronephrosis. Exam Limitations: clinical condition Past Ztjkqro-Xdndus-Tobnqi Hx Patient Social History Marrital Status: Employed/Student: retired Smoking Status: Unknown if Ever Smoked Past Medical History High Cholesterol, Hypertension Dementia Renal Failure Abdominal Hernia, Colitis Review of Systems ROS-Unable to Obtain: dementia Constitutional: see HPI Physical Exam Physical Exam General Appearance: Anxious, Chronically ill, Mild Distress, Thin, Other (appears confused) Eyes: Right Eye Normal Inspection, Right Eye PERRL HEENT: PERRL/EOMI, Normal ENT Inspection, Pharynx Normal, Moist Mucous Membranes Neck: Full Range of Motion, Normal Inspection, Non Tender Respiratory: Chest Non Tender, Normal Breath Sounds, No Accessory Muscle Use, No Respiratory Distress, Decreased Breath Sounds Cardiovascular: Regular Rate, Rhythm, No Edema, No Gallop, No JVD, No Murmur, Normal Peripheral Pulses Gastrointestinal: Abnormal Bowel Sounds (diminished), Distended, Tenderness Back: Normal Inspection, No CVA Tenderness, No Vertebral Tenderness Extremity: Normal Capillary Refill, Normal Inspection, Normal Range of Motion, Non Tender, No Calf Tenderness, No Pedal Edema Neurologic/Psychiatric: Alert, Oriented x3, No Motor/Sensory Deficits, Normal Mood/Affect Skin: Normal Color, Warm/Dry Lymphatic: No Adenopathy Assessment/Plan Admission Diagnosis Assessment: SBO at iliostomy site CKD Abdominal pain Dementia? Plan: Monitor closely Dr York consult Dr Lombardi consult Admission Status: Inpatient Order (span 2 midnights) Reason for Inpatient Admission: SBO Supervisory-Addendum Brief Verification & Attestation Participated in pt care: history, MDM, physical Personally performed: exam, history, MDM, supervision of care Care discussed with: Medical Student Procedures: n/a Results interpretation: Verified all documentation Verification and Attestation of Medical Student E/M Service A medical student performed and documented this service in my presence. I reviewed and verified all information documented by the medical student and made modifications to such information, when appropriate. I personally performed the physical exam and medical decision making. Jon Silva, Feb 22, 2021,05:14 SHANNA HERNANDEZ Feb 21, 2021 10:37 JON SILVA DO Feb 22, 2021 05:16
[2021-02-21] MEDS ORDERED: AMLO-250 PO (12:45)
[2021-02-21] MEDS ORDERED: GABA-486 PO (12:45)
[2021-02-21] MEDS ORDERED: ATEN50TA PO (12:45)
[2021-02-21] MEDS ORDERED: AMLO-251 PO (12:47)
[2021-02-21] MEDS ORDERED: NF-SODBICA PO (12:48)
[2021-02-21] MEDS ORDERED: FERR-84 PO (12:51)
[2021-02-21] MEDS ORDERED: DIPH50CA33 PO (12:53)
[2021-02-21] MEDS ORDERED: ACET-2267 PO (12:54)
[2021-02-21] MEDS ORDERED: NAPR1TAB PO (12:54)
[2021-02-21] MEDS ORDERED: OXYM30SP25 NS (12:55)
[2021-02-21] MEDS ORDERED: HYLAND LEG CRAMPS PO (12:59)
[2021-02-21] MEDS ORDERED: NS IV 1000 ML 1,000 ML IV SCH ×2 (15:45→17:15)
[2021-02-21 16:07] LABS: BASOPHILS % (AUTO) 1 % (0-10); EOSINOPHILS % (AUTO) 0 % (0-10); HEMATOCRIT 30 % (35-52); HEMOGLOBIN 9.3 g/dL (11.5-16.0); LYMPHOCYTES # (AUTO) 0.7 10^3/uL (1.0-4.0); LYMPHOCYTES % (AUTO) 10 % (12-44); MEAN CORPUSCULAR HEMOGLOBIN 31 pg (25-34); MEAN CORPUSCULAR HGB CONC 31 g/dL (32-36); MEAN CORPUSCULAR VOLUME 101 fL (80-99); MEAN PLATELET VOLUME 12.8 fL (9.0-12.2); MONOCYTES # (AUTO) 0.8 10^3/uL (0.0-1.0); MONOCYTES % (AUTO) 11 % (0-12); NEUTROPHILS # (AUTO) 5.6 10^3/uL (1.8-7.8); NEUTROPHILS % (AUTO) 78 % (42-75); PLATELET COUNT 337 10^3/uL (130-400); WHITE BLOOD COUNT 7.2 10^3/uL (4.3-11.0)
[2021-02-21 16:21] LABS: ALBUMIN 2.8 GM/DL (3.2-4.5); POTASSIUM 5.1 MMOL/L (3.6-5.0)
[2021-02-21 16:22] LABS: CALCIUM 7.8 MG/DL (8.5-10.1)
[2021-02-21 16:23] LABS: TOTAL PROTEIN 5.7 GM/DL (6.4-8.2)
[2021-02-21 16:25] LABS: BILIRUBIN,TOTAL 0.4 MG/DL (0.1-1.0)
[2021-02-21 16:27] LABS: CREATININE SERUM 4.25 MG/DL (0.60-1.30)
[2021-02-21 17:21] LABS: CLARITY,URINE CLOUDY; COLOR,URINE YELLOW; GLUCOSE, URINE (UA) NEGATIVE (NEGATIVE); KETONES,URINE NEGATIVE (NEGATIVE); LEUKOCYTE ESTERASE ,URINE TRACE (NEGATIVE); NITRITE,URINE NEGATIVE (NEGATIVE); PROTEIN,URINE 2+ (NEGATIVE)
[2021-02-21] MEDS ORDERED: MEROPENEM 1,000 MG in NS (IVPB) 100 ML IV SCH (17:30)
[2021-02-21 17:32] LABS: BACTERIA,URINE NEGATIVE /HPF; BILIRUBIN,URINE 2+ (NEGATIVE); WBC,URINE 0-2 /HPF
[2021-02-21 17:33] LABS: AMORPHOUS SEDIMENT,UR MOD AMOR URATES /LPF
--- NOTE | 2021-02-21 18:19 | Diagnostic Imaging Report ---
INDICATION: Abdominal pain. Bowel obstruction. COMPARISON: Chest radiograph dated 02/08/[address] of the abdomen and pelvis dated 02/20/2021. FINDINGS: Frontal radiographic view of the chest demonstrates scattered patchy and confluent infiltrate within the right mid and lower lung field. Trace left effusion is also suspected. There is minimal airspace disease within the left base; likely atelectasis. No pneumothorax is seen. Cardiac silhouette and pulmonary vasculature are within normal limits. Multiple supine and upright radiographic views of the abdomen were also obtained. Large stool ball is again identified within the right hemipelvis. Moderate amount of gaseous distention is seen involving the more proximal small bowel loops. Multiple air-fluid levels are noted. There is no large collection of free intraperitoneal air. No unexpected radiopaque foreign bodies are seen. IMPRESSION: 1. Infiltrate type opacities within the included portions of the right mid and lower lung field. 2. Trace right basilar effusion. 3. Redemonstration of large stool ball within the right lower abdominal quadrant. 4. Persistent changes of obstruction secondary to the large stool ball. Dictated by: Dictated on workstation # [id number]
[2021-02-21] MEDS ORDERED: SODIUM BICARBONATE 8.4% VIAL 100 MEQ in 1/2 NS IV SOLUTION 1,000 ML IV SCH (18:45)
[2021-02-21] MEDS ORDERED: SODIUM BICARB 8.4% 50 MEQ/50 ML (ABBOTT) SYR IV ONE (18:45)
[2021-02-21] MEDS ORDERED: MERO1PIG IV (18:51)
[2021-02-21] MEDS ORDERED: HEPA500018 SC (18:51)
--- NOTE | 2021-02-21 18:51 | Tele-ICU Progress Note ---
Subjective Date Seen by a Provider: Feb 21, 2021 Time Seen by a Provider: 18:50 Sepsis Event Evaluation Height, Weight, BMI Height: 5'6.00" Weight: 134lbs. 0.5oz. 60.483077ym; 21.61 BMI Method:Stated Focused Exam Lactate Level 02/21/21 15:50: Lactic Acid Level 1.81 Lactic Acid Level Laboratory Tests Test 02/21/21 15:50 Lactic Acid Level 1.81 MMOL/L (0.50-2.00) Exam Exam Patient acknowledged, consented, and participated in this virtual visit which was conducted using real time audio/video Vital Signs Date Time Temp Pulse Resp B/P (MAP) Pulse Ox O2 Delivery O2 Flow Rate FiO2 02/21/21 17:47 68 02/21/21 16:00 37.4 83 20 91/44 (60) 91 Nasal Cannula 2.00 02/21/21 12:00 80 18 113/75 (88) 95 Room Air 02/21/21 08:00 95 Room Air 02/21/21 08:00 36.5 78 20 107/51 (69) 95 Room Air 02/21/21 04:00 36.2 69 14 113/62 (79) 95 Room Air 02/21/21 00:00 36.3 67 15 115/56 (75) 94 Room Air 02/20/21 20:00 36.5 71 20 113/53 (73) 96 Room Air 02/20/21 20:00 95 Nasal Cannula 02/20/21 18:51 Room Air I & O 02/21/21 07:00 Intake Total 300 ml Output Total 365 ml Balance -65 ml Height & Weight Height: 5'6.00" Weight: 134lbs. 0.5oz. 60.265393gy; 21.61 BMI Method:Stated General Appearance: No Apparent Distress, Thin, Other (appears confused) HEENT: PERRL/EOMI Neck: Non Tender Respiratory: Chest Non Tender, Lungs Clear, No Accessory Muscle Use, No Respiratory Distress Cardiovascular: Regular Rate, Rhythm, No Gallop, No Murmur Capillary Refill: Less Than 3 Seconds Peripheral Pulses: 2+ Radial Pulses (R), 2+ Radial Pulses (L) Gastrointestinal: normal bowel sounds, non tender, soft, other (Ileostomy stoma is hal pink without exudate or breakdown.) Neurologic/Psychiatric: Alert, Disoriented Skin: Normal Color, Warm/Dry Results Lab Laboratory Tests 02/20/21 14:50 02/21/21 05:32 02/21/21 15:50 Assessment/Plan Assessment/Plan (Tele-ICU Physician , consultation) Available chart/ vitals / labs / Images reviewed H&P is from ER notes Patient's information available about PMH, Shx, Fhx allergy reviewed in EMR. ROS as per chart and RN report Now in ICU, Video assessment done using teleICU camera, rest of exam as per RN Discussed with RN. Consultants: Hospital course: 02/20 -nausea, vomiting, and increased output from her ileostomy, SBO 02/21 - transfer to ICU , shock , on levo A/P Shock - sepsis / acute abd - sx on bedside , line being placed - cont abx - ? need ct abd repeat - ? US inknown if on steroids - might need stress dose SANTO/CKD - suspect severe acidosis - add bicarnbb gtt , chaeck abd , christian in lethargy - abg Acute resp failure - check cxr , ( aftyer 2 l NS ) - check abg NIPPV for now SBO - fecal impaction within her small bowel pouch and possibly related to stomal stricture. - seenm bt SX - started on laxatives UC s/p colectomy w/ end ileostomy Lines : [facility] (Central Line Necessity Reviewed) Christian: + OG: Nutrition: Analgesia: Anxiety/ delirium VTE Prophylaxis: Stress Ulcer Prophylaxis: Plans in collaboration with bedside consultants and IM MDs. Discussed with RN to reach out if any questions or concerns A total of 30 minutes of critical care time was devoted to this patient today, required to treat and/or prevent further deterioration of critical care condition ( as above ) . SUSI SOARES MD Feb 21, 2021 18:51
--- NOTE | 2021-02-21 18:52 | Discharge Summary ---
Discharge Summary Hospital Course Was the Problem List Reviewed?: Yes Problems/Dx: (1) Severe sepsis (2) Pneumonia involving right lung (3) Small bowel obstruction Status: Acute (4) Acute kidney injury superimposed on chronic kidney disease Status: Acute (5) Diabetes mellitus type 2, insulin dependent Status: Chronic Hospital Course Date of Admission: Feb 20, 2021 at 17:00 Admission Diagnosis : Family Physician/Provider: Diego Chung MD Date of Discharge: 02/21/21 Discharge Diagnosis: severe sepsis, right lower lobe PNA, SANTO on CKD, dementia, sbo Hospital Course: Short hospital course after admitted for SBO and Dr York consulted. Poor historian and confusion and underlying cognitive function precluded extensive details and a clear clinical picture. Dr Lombardi was consulted and he reviewed the CT scan revealing chronic hydronephrosis and history was obtained by family that the CKD is managed by Dr Raya in [place]. Dr York was able to empty the pouch but repeat imaging revealed still an obstruction. Hypotension occurred promoting sepsis w/u which revealed normal wbc but PCT 3.8 so patient was arnold-cultured and given 2 liters of NS per severe sepsis protocol of 30cc/kg and moved to ICU due to decreased mentation. [facility] was notified and requested transfer due to GI specialist managing her the past many years and general surgery and hospitalist accepted the transfer after I gave full report. Meropenem was given prior to BCx and repeat UA was normal but it appeared she had developed a PNA on xray causing the septic episode. Due to worsened creatinine she needed Nephrology so she was moved to [facility]. Labs and Pending Lab Test: Laboratory Tests 02/20/21 20:03: Glucometer 108 02/21/21 00:20: Glucometer 143H 02/21/21 05:32: White Blood Count 9.9, Red Blood Count 3.11L, Hemoglobin 9.5L, Hematocrit 31L, Mean Corpuscular Volume 100H, Mean Corpuscular Hemoglobin 31, Mean Corpuscular Hemoglobin Concent 31L, Red Cell Distribution Width 14.0, Platelet Count 342, Mean Platelet Volume 12.8H, Immature Granulocyte % (Auto) 1, Neutrophils (%) (Auto) 81H, Lymphocytes (%) (Auto) 7L, Monocytes (%) (Auto) 10, Eosinophils (%) (Auto) 0, Basophils (%) (Auto) 1, Neutrophils # (Auto) 8.0H, Lymphocytes # (Auto) 0.7L, Monocytes # (Auto) 1.0, Eosinophils # (Auto) 0.0, Basophils # (Auto) 0.1, Immature Granulocyte # (Auto) 0.1, Sodium Level 140, Potassium Level 5.2H, Chloride Level 108H, Carbon Dioxide Level 15L, Anion Gap 17H, Blood Urea Nitrogen 76H, Creatinine 3.87H, Estimat Glomerular Filtration Rate 11, BUN/Creatinine Ratio 20, Glucose Level 183H, Calcium Level 8.5 02/21/21 12:09: Glucometer 158H 02/21/21 15:50: White Blood Count 7.2, Red Blood Count 2.97L, Hemoglobin 9.3L, Hematocrit 30L, Mean Corpuscular Volume 101H, Mean Corpuscular Hemoglobin 31, Mean Corpuscular Hemoglobin Concent 31L, Red Cell Distribution Width 14.0, Platelet Count 337, Mean Platelet Volume 12.8H, Immature Granulocyte % (Auto) 1, Neutrophils (%) (Auto) 78H, Lymphocytes (%) (Auto) 10L, Monocytes (%) (Auto) 11, Eosinophils (%) (Auto) 0, Basophils (%) (Auto) 1, Neutrophils # (Auto) 5.6, Lymphocytes # (Auto) 0.7L, Monocytes # (Auto) 0.8, Eosinophils # (Auto) 0.0, Basophils # (Auto) 0.0, Immature Granulocyte # (Auto) 0.1, Sodium Level 140, Potassium Level 5.1H, Chloride Level 106, Carbon Dioxide Level 12L, Anion Gap 22H, Blood Urea Nitrogen 84H, Creatinine 4.25H, Estimat Glomerular Filtration Rate 10, BUN/Creatinine Ratio 20, Glucose Level 180H, Lactic Acid Level 1.81, Calcium Level 7.8L, Corrected Calcium 8.8, Total Bilirubin 0.4, Aspartate Amino Transf (AST/SGOT) 19, Alanine Aminotransferase (ALT/SGPT) 20, Alkaline Phosphatase 79, Total Protein 5.7L, Albumin 2.8L, Procalcitonin 3.54H 02/21/21 16:02: Urine Color YELLOW, Urine Clarity CLOUDY, Urine pH 5.0, Urine Specific [place] >=1.030, Urine Protein 2+H, Urine Glucose (UA) NEGATIVE, Urine Ketones NEGATIVE, Urine Nitrite NEGATIVE, Urine Bilirubin 2+H, Urine Urobilinogen 0.2, Urine Leukocyte Esterase TRACEH, Urine RBC (Auto) 2+H, Urine RBC 5-10H, Urine WBC 0-2, Urine Squamous Epithelial Cells 2-5, Urine Crystals NONE, Urine Amorphous Sediment MOD JAGJIT URATESH, Urine Bacteria NEGATIVE, Urine Casts NONE, Urine Mucus NEGATIVE, Urine Culture Indicated NO 02/21/21 16:08: Glucometer 155H Home Meds Active Meropenem-0.9% NaCl 1 Gram/50 (Meropenem-0.9% Sodium Chloride) 1 Gm/50 Ml Piggyback 1 Gm IV Q8H 5 Days Heparin Sodium (Heparin Sodium,Porcine) 5,000 Unit/1 Ml Vial 5,000 Units SC Q8H 7 Days Reported [Carly Leg Cramps] 1 Tab PO PRN Afrin (Oxymetazoline HCl) 30 Ml [place] 1 [place] NS DAILY PRN Tylenol Extra Strength (Acetaminophen) 500 Mg Tablet 500 Mg PO Q6H PRN All Day Pain Relief Caplet (Naproxen Sodium/P-Ephed HCl) 1 Each Tab.er.12h 1 Each PO DAILY PRN Diphenhydramine HCl 50 Mg Capsule 50 Mg PO HS PRN Iron (Ferrous Sulfate) 325 Mg Tablet 325 Mg PO DAILY Sodium Bicarbonate 650 Mg Tablet 650 Mg PO DAILY Amlodipine Besylate 10 Mg Tablet 10 Mg PO DAILY Gabapentin 100 Mg Capsule 100 Mg PO BID Atenolol 50 Mg Tablet 50 Mg PO DAILY Amlodipine Besylate 5 Mg Tablet 5 Mg PO DAILY Levemir Flextouch (Insulin Detemir) 100 Unit/1 Ml Insuln.pen 12 Unit SQ HS Victoza 3-Raj (Liraglutide) 0.6 Mg/0.1 Ml Pen.injctr 1.8 Mg SC DAILY PRN Assessment/Pt Instructions [facility] Discharge Planning: <30 minutes discharge planning Discharge Physical Examination Vital Signs Vital Signs Date Time Temp Pulse Resp B/P (MAP) Pulse Ox O2 Delivery O2 Flow Rate FiO2 02/21/21 17:47 68 02/21/21 16:00 37.4 20 91/44 (60) 91 Nasal Cannula 2.00 Allergies: Coded Allergies: Morpholine Analogues (Verified Allergy, Unknown, 02/08/21) Sulfa (Sulfonamide Antibiotics) (Verified Allergy, Unknown, 06/11/06) iodine (Verified Allergy, Unknown, 01/17/20) Discharge Summary Date of Admission Feb 20, 2021 at 17:00 Date of Discharge Discharge Date: Feb 21, 2021 Admission Diagnosis Small bowel obstruction Discharge Diagnosis (1) Small bowel obstruction Onset Date: ~ 02/2021 Status: Acute Assessment & Plan: CT A/P shows diffuse distention and dilatation of the small bowel, which is fluid filled and dilated to 4cm. There is a large stool burden immediately prior to the ileostomy, which is concerning for stomal stricture. - Likely represents obstruction - NPO, bowel rest, NGT + LIWS - IVF w/ NS @ 125ml/hr - Minimize narcotic use - Correct electrolytes PRN - MiraLAX 34g daily - consider daily AM KUBs - surgery consulted; appreciate recs (2) Acute kidney injury superimposed on chronic kidney disease Onset Date: ~ 02/2021 Status: Acute Assessment & Plan: - likely 2/2 obstruction - unknown BL Cr - Cr 3.68 on admission - today Cr 3.87 / GFR 11(worsening renal function) - CT 02/20/21 showing bilateral hydronephrosis and dilated ureters - consider renal u/s - UA 2+ protein, trace glucose, trace blood, -ketones - Urine output at 0.19 ml/kg/hr yesterday; 0.05 ml/kg/hr so far today - Lopez in place - caution nephrotoxins, contrast, NSAIDS, ACEI/ARB, HCTZ, yaquelin - strict I&O, daily WTs, daily AM RFPs - if GFR <20% chronically -> likely will need CRRT in near future, if progress to that point will need surgery to place dialysis cath - Consult urology; appreciate recs (3) Diabetes mellitus type 2, insulin dependent Status: Chronic Assessment & Plan: -A1c 9.1% (01/2020) -Home regimen: Levemir 13 units HS; Victoza 0.6 mg QD -Inpatient regimen: Insulin SS -Glucose monitoring AC/HS JON SILVA DO Feb 21, 2021 18:52
--- NOTE | 2021-02-21 19:05 | Diagnostic Imaging Report ---
INDICATION: Central line placement COMPARISON: 02/08/2021 FINDINGS: Single view of the chest demonstrates cardiac enlargement with new central vascular congestion and basilar atelectasis. There is no pneumothorax. Trace effusions are likely. There is a left subclavian central venous catheter with the tip in the SVC. There was no post procedure pneumothorax. IMPRESSION: No post procedure pneumothorax identified. Dictated by: Dictated on workstation # [id number]
[2021-02-21 19:09] LABS: ABG BASE EXCESS -15.5 MMOL/L (-2.5-2.5); ABG OXYGEN SATURATION 98 % (94-100); ABG PCO2 31 MMHG (35-45); ABG PO2 119 MMHG (79-93); ABG TCO2 12.2 MMOL/L (21.0-31.0)
[2021-02-21] MEDS ORDERED: NOREPINEPHRINE 8 MG/250 ML 250 ML IV SCH (19:15)
[2021-02-21 19:33] LABS: POTASSIUM 4.9 MMOL/L (3.6-5.0)
[2021-02-21 19:34] LABS: CALCIUM 6.9 MG/DL (8.5-10.1)
[2021-02-21 19:38] LABS: CREATININE SERUM 3.99 MG/DL (0.60-1.30)
[2021-02-21 19:44] LABS: ABG PH 7.19 (7.37-7.43)
[2021-02-21 19:45] LABS: ALLENS TEST POS; INSPIRED O2 4L; PATIENT TEMP 36.5; VENTILATOR NO
--- NOTE | 2021-02-22 01:17 | OPERATIVE REPORT ---
DATE OF SERVICE: 02/21/2021 PREOPERATIVE DIAGNOSES: Hypotension, shock, renal failure with poor peripheral venous circulation. POSTOPERATIVE DIAGNOSES: Hypotension, shock, renal failure with poor peripheral venous circulation. PROCEDURE: Placement of left subclavian central venous catheter. SURGEON: Harrison Chu MD. ANESTHESIA: Local. ESTIMATED BLOOD LOSS: Minimal. DISPOSITION: The patient tolerated the procedure well. INDICATIONS: The patient is a 75-year-old female, who presented yesterday to the Emergency Department with abdominal distention and pain as well as nausea and vomiting. A CT scan of the abdomen was performed, which did show some dilated loops of small bowel; however, there was a large stool bolus in the mid abdomen. She has a history of ulcerative colitis and underwent what sounds to be a subtotal colectomy as well as the placement of a Frausto continent pouch, which she places a nipple valve into evacuate on an intermittent basis. There appears to be a significant amount of stool in this pouch; however, after stool softeners as well as laxatives. This has softened up and we have removed greater than 1 liter of volume of stool from the pouch. She did develop hypotension of unknown etiology and was transferred to the ICU and will require a central venous catheter for further IV therapy as well as vasopressors. DESCRIPTION OF PROCEDURE: The chest and neck were prepped and draped in standard surgical fashion. A 1% lidocaine was used to anesthetize the overlying skin in the left subclavian region. The left subclavian vein was then cannulated with drawing of venous blood. The guidewire was then inserted without any resistance. The cannulating needle removed and a skin incision made using 11 blade. A tract was then created using a venous dilator and through this opening, a triple lumen central venous catheter was placed over the guidewire using the Seldinger technique and the guidewire was then removed. All three ports chanell venous blood and saline pushed in without any resistance. The catheter was then sutured to the skin using interrupted 3-0 silk sutures. Catheter was then cleaned and covered with Op-Site. The patient tolerated the procedure well. We will get a post-procedure chest x-ray. Job ID: [id number] DocumentID: [id number] Dictated Date: 02/21/2021 18:43:32 Card Placer Date: 02/22/2021 01:16:42 Dictated By: HARRISON CHU MD
== END 2021-02-21 21:30 | disposition short-term general hospital (02) | DRG 393 ==
LOC: EDUNIT# 14:43 → ER 14:43 → 4TH 17:00 → ICU 02-21 17:57
PROVIDERS: ADMIT Internal Medicine; ATTEND Internal Medicine
PROC: 02HV33Z Insertion of Infusion Device into Superior Vena Cava, Percutaneous Approach (ICD-10-PCS; principal; 2021-02-21)
DX: K91.858 Other complications of intestinal pouch (principal); J96.01 Acute respiratory failure with hypoxia; A41.9 Sepsis, unspecified organism; J18.9 Pneumonia, unspecified organism; R65.21 Severe sepsis with septic shock; K91.30 Postprocedural intestinal obstruction, unspecified as to partial versus complete; N17.9 Acute kidney failure, unspecified; K94.19 Other complications of enterostomy; N13.2 Hydronephrosis with renal and ureteral calculous obstruction; E78.00 Pure hypercholesterolemia, unspecified; F03.90 Unspecified dementia, unspecified severity, without behavioral disturbance, psychotic disturbance, mood disturbance, and anxiety; Z20.822 Contact with and (suspected) exposure to COVID-19; N18.9 Chronic kidney disease, unspecified; E11.22 Type 2 diabetes mellitus with diabetic chronic kidney disease; I12.9 Hypertensive chronic kidney disease with stage 1 through stage 4 chronic kidney disease, or unspecified chronic kidney disease; Z79.4 Long term (current) use of insulin; E86.0 Dehydration; Z90.49 Acquired absence of other specified parts of digestive tract; Z88.2 Allergy status to sulfonamides; Z88.8 Allergy status to other drugs, medicaments and biological substances; Z91.048 Other nonmedicinal substance allergy status
CPT/HCPCS: 36415; 71045; 74022; 74176; 80048; 80053; 81000; 82805; 82947; 83605; 84145; 85007; 85025; 85027; 86141; 87040; 87077; 87186; 87636; 96374; 96375